=== PATIENT | female | born 1950 | race Caucasian/White ===

== ENCOUNTER 2023-11-26 13:04 | Inpatient (IN) ==
[2023-11-26 13:59] LABS: Basophils # (auto) 0.03 K/uL (0.00-0.20); Basophils % (auto) 0.4 %; Eosinophils # (auto) 0.13 K/uL (0.00-0.50); Eosinophils % (auto) 1.5 %; Hematocrit (blood only) 35.6 % (37.0-47.0); Hemoglobin 11.4 g/dl (12.0-16.0); Immature Granulocytes # (auto) 0.05 K/uL (0.01-0.20); Immature Granulocytes % (auto) 0.6 %; Lymphocytes # (auto) 1.28 K/uL (1.20-3.40); Mean Corpuscular Hemoglobin 32.4 pg (25.0-34.0); Mean Corpuscular Volume 101.1 fL (80.0-100.0); Monocytes # (auto) 0.75 K/uL (0.11-0.59); Monocytes % (auto) 8.8 %; Neutrophils # (auto) 6.31 K/uL (1.40-6.50); Neutrophils % (auto) 73.7 %; Platelet Count 181 K/uL (130-400); RDW Coefficient of Variation 14.6 % (11.5-14.5); Red Blood Count 3.52 M/uL (4.20-5.40); White Blood Count 8.55 K/ul (4.8-10.8)
[2023-11-26 14:13] LABS: Alanine Aminotransferase 15 U/L (7-52); Albumin Globulin Ratio 1.6 (0.9-2); Albumin Level 4.2 gm/dl (3.4-5.0); Alkaline Phosphatase 69 U/L (34-104); Anion Gap 5 (3-11); Aspartate Aminotransferase 18 U/L (13-39); BUN Creatinine Ratio 19.7 (10-20); Bilirubin,Total 0.5 mg/dl (0.2-1.0); Blood Urea Nitrogen 24 mg/dl (6-23); Calcium 9.6 mg/dl (8.6-10.3); Carbon Dioxide 32 mmol/L (21-32); Chloride 102 mmol/L (98-107); Est GFR (African American) 50.5 ml/min; Est GFR (Non-African American) 43.6 ml/min; Globulin 2.7 gm/dl (2.5-4.0); Glucose 143 mg/dl (70-99(Fasting)); Magnesium 1.8 mg/dl (1.7-2.4); Potassium 4.3 mmol/L (3.5-5.1); Sodium 139 mmol/L (136-145); Total Protein 6.9 gm/dl (6.0-8.3)
[2023-11-26 14:18] LABS: Troponin I High Sensitivity 13.3 pg/ml (0-14)
[2023-11-26 14:28] LABS: Thyroid Stimulating Hormone 1.914 uIu/ml (0.300-4.500)
--- NOTE | 2023-11-26 14:34 | XRay Report ---
XR chest 1V portable CLINICAL HISTORY: syncope TECHNIQUE: Single frontal radiograph of the chest was obtained. Comparison: Comparison is made to chest radiograph 01/31/2022 FINDINGS: No lines and tubes are seen. Cardiomegaly is noted. The aortic arch is calcified. The lungs are clear . No evidence of pleural effusion or pneumothorax. IMPRESSION: No acute chest disease. Cardiomegaly is noted. ACT 112: Negative or not required by law. Electronically signed by: Karl Crouch M.D. 11/26/2023 2:32 PM
[2023-11-26 14:41] LABS: Adenovirus PCR Not Detected (NotDetected); Bordetella parapertussis PCR Not Detected (NotDetected); Bordetella pertussis PCR Not Detected (NotDetected); Chlamydia pneumoniae PCR Not Detected (NotDetected); Coronavirus 229E PCR Not Detected (NotDetected); Coronavirus CoV-2 (COVID19)PCR Not Detected (NotDetected); Coronavirus HKU1 PCR Not Detected (NotDetected); Coronavirus NL63 PCR Not Detected (NotDetected); Coronavirus OC43PCR Not Detected (NotDetected); Human Metapneumovirus PCR Not Detected (NotDetected); Influenza A PCR Not Detected (NotDetected); Influenza B PCR Not Detected (NotDetected); Mycoplasma pneumoniae PCR Not Detected (NotDetected); Parainfluenza Virus 1 PCR Not Detected (NotDetected); Parainfluenza Virus 2 PCR Not Detected (NotDetected); Parainfluenza Virus 3 PCR Not Detected (NotDetected); Parainfluenza Virus 4 PCR Not Detected (NotDetected); Respiratory Syncytial VirusPCR Not Detected (NotDetected); Rhinovirus/Enterovirus PCR Not Detected (NotDetected)
[2023-11-26 14:43] LABS: Base Excess VBG 5.7 mEq/L; HCO3 VBG 34 mmol/L; Oxygen Saturation VBG < 60.0 %; PCO2 VBG 64 mmHg (38-50); PO2 VBG 23 mmHg; pH VBG 7.33 (7.36-7.41)
--- NOTE | 2023-11-26 15:13 | XRay Report ---
XR ankle LT min 3V routine HISTORY: 73 years-old Female pain acute left ankle pain COMPARISON: None TECHNIQUE: 3 views of left ankle FINDINGS: Arterial calcifications. Circumferential soft tissue swelling. Benign-appearing ill-defined area of s clerosis involves the distal tibial diaphysis. Subcentimeter corticated ossification adjacent to the medial malleolus is likely chronic. Well-defined linear longitudinal lucency of the distal fibula. No acute fracture, dislocation or osteochondral defect. IMPRESSION: 1. Soft tissue swelling without acute displaced fracture or dislocation. 2. Ill-defined linear lucency of the distal fibula likely represents normal medullary markings. A sub tle acute nondisplaced fracture could appear similarly. ACT 112: Negative or not required by law. The above report was generated using voice recognition software. It may contain grammatical, syntax o r spelling errors. Electronically signed by: Magan Coleman M.D. 11/26/2023 3:12 PM
[2023-11-26] MEDS: ALBUT/IPRATROP 3MG/0.5MG NEB 3 ML VIAL NEB STA ×3 (15:29→22:08)
--- NOTE | 2023-11-26 15:33 | Emergency Department Note ---
Impression & Plan Left ankle sprain, Syncope and collapse, Acute and chronic respiratory failure with hypercapnia ED Provider Note Provider: Elias Bradshaw MD DATE OF SERVICE: 11/26/2023 CHIEF COMPLAINT: Ankle injury, syncope, breathing issues HISTORY OF PRESENT ILLNESS: Patient is a 73-year-old female history of A-fib on Eliquis, diverticulitis, COPD on home oxygen, hypertension, hyperlipidemia, prior stroke presenting here today with significant other reporting that she passed out and injured her left ankle. Initially had a syncopal episode 3 weeks ago but her right knee recovered after that. Last evening she states that she passed out and injured her left ankle. States she felt warm across her head and then went down. Was not out more than a second or 2 and awoke on the ground immediately. Complains of pain to left lateral ankle and with significant difficulty getting around with this came here today for evaluation. Unsure if she hit her head but denies pain here. Last day or so has been having some worsening breathing. Bit of a cough. Has been trying up her home oxygen as her oxygen levels fell into the 80s. No sick contacts. No abdominal pain or nausea but does report some dysuria. PAST MEDICAL HISTORY: As noted above MEDICATIONS: Reviewed home medications includes Eliquis oxygen SOCIAL HISTORY: Lives with significant other PHYSICAL EXAM: GENERAL: alert and oriented in no acute distress on stretcher on oxygen Head: normocephalic and atraumatic EYES: No injection, discharge or icterus. EOMI. NECK: Trachea midline. ENT: Mucous membranes pink and moist. LUNGS: Airway patent. No retractions. Breath sounds few scattered wheezes. Mild tachypnea. HEART: Regular rate and rhythm. No chest wall tenderness ABDOMEN: Soft and non-tender, without guarding or rebound. SKIN: Acyanotic, warm, dry, without rashes EXTREMITIES: Without swelling, tenderness or deformity with some tenderness to the left lateral ankle but no wound. NEUROLOGICAL: No aphasia with some chronic slurred speech/dysarthria from prior CVA. Normal strength and tone in the extremities. Sensation to gross touch normal. EK bpm normal sinus rhythm right bundle branch block. No PVC or PAC. QTc 472. No ST segment elevation or depression CONTINUOUS CARDIAC MONITORING: was ordered and showed a heart rate of 50s-60s bpm in normal sinus rhythm to sinus bradycardia with bundle branch block GCS 15. Patient's laboratory studies and imaging reviewed. Differential includes Vasovagal event, dehydration, infection, hypoglycemia, electrolyte abnormalities, cardiac sources, intracerebral event, pulmonary embolism, pneumonia, COPD exacerbation, seizure, toxicologic, neurologic, traumatic injury, fracture, dislocation, compartment syndrome as well as other pathologies. IMPRESSION/MEDICAL DECISION MAKING: Patient increased to 3 L of oxygen from baseline of 2 reports a bit of cough. Syncope several weeks ago and then today. Low suspicion for PE with the use of blood thinners. Has some swelling of the left lateral ankle. X-ray obtained here question the subtle fracture. No dislocation or open wound. Will splint the left ankle. X-ray without evidence of pneumonia. Respiratory viral panel negative. No severe electrolyte abnormality or findings of acute ACS/cardiac injury. No significant anemia or leukocytosis today. VBG with slight acidosis 7.33 and a CO2 of 64. Given a DuoNeb to help with her breathing status. Question more COPD. Believe antibiotics are indicated. Does not appear encephalopathic at this point but obvious concern given her significant respiratory history and the slight acidosis/hypercarbia as well as evidence of what appears to be a questionable fracture of her ankle with syncope that we should monitor further. Will give a small dose of steroids to see if this assist with her breathing situation but patient declined any steroids. Low suspicion this is no acute CVA but more chronic residual CVA. Head CT obtained given the syncope and possible head injury with use of blood thinner. Doubt any spinal injury or rib fractures/pneumothorax. Patient was agreeable to stay for further care. DIAGNOSIS: Left ankle fracture, syncope, acute on chronic respiratory failure DISPOSITION: Hospitalist will evaluate Patient was agreeable with this plan. Past Med/Surg History Problem List (Updated 11/26/23 @ 18:39 by Jessie Luque PA-C) CKD (chronic kidney disease), stage III CAD (coronary artery disease) Paroxysmal atrial fibrillation Left ankle injury Acute on chronic respiratory failure with hypoxia and hypercapnia Acute and chronic respiratory failure with hypercapnia (Acute) Syncope and collapse (Acute) Left ankle sprain (Acute) Encounter for pre-operative examination Carotid endarterectomy (Chronic 09/16/12) Medical History (Updated 11/26/23 @ 18:39 by Jessie Luque PA-C) Peripheral vascular disease Osteoarthritis Irritable bowel syndrome Diverticulitis GERD (gastroesophageal reflux disease) Peripheral neuropathy BLE Stroke LUNAR STROKE 1994 Atrial fibrillation PAST HX/NO PROBLEMS Hypertension Hyperlipidemia On home oxygen therapy 2L NC HS ONLY Chronic obstructive pulmonary disease Surgical History History of bilateral tubal ligation History of colonoscopy History of cholecystectomy History of tooth extraction History of tonsillectomy History of adenoidectomy History of carotid endarterectomy LEFT/RT History of cardiac cath 2003/NO STENTS Family History Family/Other Family history of diabetes mellitus Brother Family history of esophageal cancer Social History Smoking Status: Former smoker Cigarettes Per Day: 10 CIG DAILY; Second Hand Exposure: No; Do You Dip or Chew Tobacco: No; Hx Alcohol Use: No Hx Substance Use: No Preferred Language: Taiwanese Communication Ability: Effective Make Ready Worker Required: No Beliefs That Will Affect Care: None Current Living Situation: Alone Feels Safe at Home: Yes Assistive Devices: Denture - Upper, Denture - Lower, Glasses and Oxygen - at Night Allergies Allergies Allergy/AdvReac Type Severity Reaction Status Date / Time bupropion Allergy Intermediate ZYBAN-HIVES Verified 11/26/23 17:45 niacin Allergy Intermediate BURNED Verified 11/26/23 17:45 THROAT amoxicillin Allergy Mild Rash Verified 11/26/23 17:45 prednisone AdvReac Intermediate ELEVATES Verified 11/26/23 17:45 BLOOD PRESSURE levofloxacin AdvReac Mild Weakness Verified 11/26/23 17:45 antihistamines Allergy BP goes up Uncoded 11/26/23 17:46 Home Meds Home Medications Medication Instructions Recorded Confirmed Systane Preservative Free 1 drp OPB DIRECTED 01/31/22 11/26/23 apixaban 5 mg tablet (Eliquis) 5 mg PO BID 01/31/22 11/26/23 aspirin 81 mg tablet,delayed 81 mg PO DAILY 01/31/22 11/26/23 release atenolol 50 mg tablet 50 mg PO BID 01/31/22 11/26/23 atorvastatin 80 mg tablet 80 mg PO PM 01/31/22 11/26/23 cholecalciferol (vitamin D3) 25 25 mcg PO DAILY 01/31/22 11/26/23 mcg (1,000 unit) tablet (Vitamin D3) coenzyme Q10 100 mg capsule 100 mg PO DAILY 01/31/22 11/26/23 (CoQ-10) cyclosporine 0.05 % eye drops in a 1 - 2 drp ophthalmic (eye) QID PRN 01/31/22 11/26/23 dropperette (Restasis) Dry Eyes empagliflozin 10 mg tablet 10 mg PO DAILY 01/31/22 11/26/23 (Jardiance) esomeprazole magnesium 40 mg 40 mg PO BID 01/31/22 11/26/23 capsule,delayed release fexofenadine 180 mg tablet 180 mg PO DAILY PRN ALLERGIES 01/31/22 11/26/23 ipratropium 20 mcg-albuterol 100 1 puff inhalation QID PRN 01/31/22 11/26/23 mcg/actuation mist for inhalation Shortness Of Breath Or Wheezing (Combivent Respimat) lisinopril 5 mg tablet 5 mg PO DAILY 01/31/22 11/26/23 multivitamin 1 tab PO DAILY 01/31/22 11/26/23 nitroglycerin 0.4 mg sublingual 0.4 mg sublingual DIRECTED PRN 01/31/22 11/26/23 tablet (Nitrostat) Chest Pain pomegranate fruit extract 250 mg 0 mg PO DAILY 01/31/22 11/26/23 capsule vitamin B complex 1 tab PO DAILY 01/31/22 11/26/23 amitriptyline 10 mg tablet 10 mg PO HS 11/26/23 11/26/23 ipratropium bromide 21 mcg (0.03 2 spray intranasal QID PRN Nasal 11/26/23 11/26/23 %) nasal spray Congestion isosorbide mononitrate 30 mg 330 mg PO QAM 11/26/23 11/26/23 tablet,extended release 24 hr pregabalin 25 mg capsule 25 mg PO BID 11/26/23 11/26/23 Results & Data (ED) Vital Signs Vital Signs - 24 hr 11/26/23 13:16 11/26/23 13:30 11/26/23 13:56 Temperature 36.5 C Temperature Source Temporal Artery Scan Pulse Rate 74 63 Pulse Rate [Apical] Respiratory Rate 20 Respiratory Effort / Characteristics Non-Labored Respiratory Depth Normal Blood Pressure 150/64 H Blood Pressure [Right Arm] Blood Pressure Mean 92 Blood Pressure Mean [Right Arm] Pulse Oximetry 96 94 Oxygen Delivery Method Nasal Cannula Nasal Cannula Oxygen Flow Rate 2 4 Sepsis Recent Fever Within 48 Hours No Sepsis New/Unexplained Change in Mental Status No Sepsis Action Taken by Nursing No Action Required 11/26/23 13:56 11/26/23 16:42 11/26/23 17:23 Temperature Temperature Source Pulse Rate 65 Pulse Rate [Apical] 61 67 Respiratory Rate 17 Respiratory Effort / Characteristics Non-Labored Spontaneous Respiratory Depth Normal Blood Pressure Blood Pressure [Right Arm] 141/41 H 141/41 H Blood Pressure Mean Blood Pressure Mean [Right Arm] 74 74 Pulse Oximetry 94 94 Oxygen Delivery Method Nasal Cannula Nasal Cannula Oxygen Flow Rate 4 4 Sepsis Recent Fever Within 48 Hours Sepsis New/Unexplained Change in Mental Status Sepsis Action Taken by Nursing Laboratory Data 11/26/23 13:35 11/26/23 13:35 Lab Results 11/26/23 11/26/23 11/26/23 Range/Units 13:35 14:33 15:57 WBC 8.55 (4.8-10.8) K/ul RBC 3.52 L (4.20-5.40) M/uL Hgb 11.4 L (12.0-16.0) g/dl Hct 35.6 L (37.0-47.0) % MCV 101.1 H (80.0-100.0) fL MCH 32.4 (25.0-34.0) pg MCHC 32.0 (32.0-36.0) g/dL RDW Std Deviation 54.0 H (36.4-46.3) fL RDW Coeff of Shonda 14.6 H (11.5-14.5) % Plt Count 181 (130-400) K/uL MPV 10.0 (9.4-12.4) fL Immature Gran % (Auto) 0.6 % Neut % (Auto) 73.7 % Lymph % (Auto) 15.0 % Baker % (Auto) 8.8 % Eos % (Auto) 1.5 % Baso % (Auto) 0.4 % Neut # (Auto) 6.31 (1.40-6.50) K/uL Lymph # (Auto) 1.28 (1.20-3.40) K/uL Baker # (Auto) 0.75 H (0.11-0.59) K/uL Eos # (Auto) 0.13 (0.00-0.50) K/uL Baso # (Auto) 0.03 (0.00-0.20) K/uL Immature Gran # (Auto) 0.05 (0.01-0.20) K/uL VBG pH 7.33 L (7.36-7.41) VBG pCO2 64 H (38-50) mmHg VBG pO2 23 mmHg VBG HCO3 34 mmol/L VBG O2 Saturation < 60.0 % VBG Base Excess 5.7 mEq/L Sodium 139 (136-145) mmol/L Potassium 4.3 (3.5-5.1) mmol/L Chloride 102 (98-107) mmol/L Carbon Dioxide 32 (21-32) mmol/L Anion Gap 5 (3-11) BUN 24 H (6-23) mg/dl Creatinine 1.22 H (0.6-1.2) mg/dl Est Cr Clr Drug Dosing Not Reportable Est GFR ( Amer) 50.5 ml/min Est GFR (Non-Af Amer) 43.6 ml/min BUN/Creatinine Ratio 19.7 (10-20) Glucose 143 H (70-99(Fasting)) mg/dl Calcium 9.6 (8.6-10.3) mg/dl Magnesium 1.8 (1.7-2.4) mg/dl Total Bilirubin 0.5 (0.2-1.0) mg/dl AST 18 (13-39) U/L ALT 15 (7-52) U/L Alkaline Phosphatase 69 (34-104) U/L Troponin I High Sens 13.3 (0-14) pg/ml Total Protein 6.9 (6.0-8.3) gm/dl Albumin 4.2 (3.4-5.0) gm/dl Globulin 2.7 (2.5-4.0) gm/dl Albumin/Globulin Ratio 1.6 (0.9-2) TSH 1.914 (0.300-4.500) uIu/ml Urine Color Yellow Urine Appearance Clear (Clear) Urine pH 6.0 (4.5-7.5) Ur Specific [place] 1.013 (1.000-1.030) Urine Protein 1+ H (Negative) Urine Glucose (UA) 2+ H (Negative) Urine Ketones Negative (Negative) Urine Blood Negative (Negative) Urine Nitrite Negative (Negative) Urine Bilirubin Negative (Negative) Urine Urobilinogen Negative (Negative) Ur Leukocyte Esterase Negative (Negative) Urine WBC (Auto) 0-5 (0-5) /hpf Urine RBC (Auto) 0-2 (0-2) /hpf U Hyaline Cast (Auto) 0-2 (0-2) /lpf U Epithel Cells (Auto) 3-5 H (0-2) /hpf Urine Bacteria (Auto) 1+ H (None Seen) Adenovirus (PCR) Not Detected (NotDetected) B. pertussis DNA (PCR) Not Detected (NotDetected) B.parapertussis DNA PCR Not Detected (NotDetected) C. pneumoniae DNA (PCR) Not Detected (NotDetected) Coronavirus OC43 (PCR) Not Detected (NotDetected) Coronavirus HKU1 (PCR) Not Detected (NotDetected) Coronavirus 229E (PCR) Not Detected (NotDetected) SARS-CoV-2 (PCR) Not Detected (NotDetected) Coronavirus NL63 (PCR) Not Detected (NotDetected) Human Metapneumovir PCR Not Detected (NotDetected) Influenza Type A (PCR) Not Detected (NotDetected) Influenza Type B (PCR) Not Detected (NotDetected) M. pneumoniae (PCR) Not Detected (NotDetected) Parainfluenza 1 (PCR) Not Detected (NotDetected) Parainfluenza 2 (PCR) Not Detected (NotDetected) Parainfluenza 3 (PCR) Not Detected (NotDetected) Parainfluenza 4 (PCR) Not Detected (NotDetected) RSV (PCR) Not Detected (NotDetected) Entero/Rhino (PCR) Not Detected (NotDetected) Administered Medications Discontinued Medications Albuterol (Albut/Ipratrop 3mg/0.5mg Neb 3 Ml Vial) 3 ml NEB NOW STA; Protocol Stop: 11/26/23 15:23 Last Admin: 11/26/23 15:29 Dose: 3 ml Documented By: MES Methylprednisolone (Methylprednisolone 125 Mg/2 Ml Vial) 40 mg IV NOW STA Stop: 11/26/23 15:34 Last Admin: 11/26/23 15:43 Dose: Not Given Documented By: [facility] [place] Imaging Data Radiologist's Impression: Ankle X-Ray 11/26/23 13:38 XR ankle LT min 3V routine HISTORY: 73 years-old Female pain acute left ankle pain COMPARISON: None TECHNIQUE: 3 views of left ankle FINDINGS: Arterial calcifications. Circumferential soft tissue swelling. Benign-appearing ill-defined area of sclerosis involves the distal tibial diaphysis. Subcentimeter corticated ossification adjacent to the medial malleolus is likely chronic. Well-defined linear longitudinal lucency of the distal fibula. No acute fracture, dislocation or osteochondral defect. IMPRESSION: 1. Soft tissue swelling without acute displaced fracture or dislocation. 2. Ill-defined linear lucency of the distal fibula likely represents normal medullary markings. A subtle acute nondisplaced fracture could appear similarly. ACT 112: Negative or not required by law. The above report was generated using voice recognition software. It may contain grammatical, syntax or spelling errors. Electronically signed by: Magan Coleman M.D. 11/26/2023 3:12 PM Chest X-Ray 11/26/23 13:38 XR chest 1V portable CLINICAL HISTORY: syncope TECHNIQUE: Single frontal radiograph of the chest was obtained. Comparison: Comparison is made to chest radiograph 01/31/2022 FINDINGS: No lines and tubes are seen. Cardiomegaly is noted. The aortic arch is calcified. The lungs are clear. No evidence of pleural effusion or pneumothorax. IMPRESSION: No acute chest disease. Cardiomegaly is noted. ACT 112: Negative or not required by law. Electronically signed by: Karl Crouch M.D. 11/26/2023 2:[address] 11/26/23 14:[address] DOSE: 953.61 mGy.cm HISTORY: fall, syncope TECHNIQUE: Multiaxial CT images of the head were performed without the use of intravenous contrast. Automated exposure control was utilized for this study. A dose lowering technique was utilized adhering to the principles of ALARA. Comparison: None. Findings: The paranasal sinuses and mastoid air cells are clear. The calvarium and skull base are intact. There is no mass, hematoma, midline shift, acute infarct. White matter hypodensity is nonspecific but suggestive of microvascular ischemic change. The ventricles and sulci demonstrate mild age-related involutional changes. Focal area of encephalomalacia within the left posterior frontal lobe consistent with an old MCA territory infarct. Impression: 1. No acute infarct or intracranial hemorrhage. 2. Old left MCA territory infarct. ACT 112: Negative or not required by law. Electronically signed by: Jose Resendiz M.D. 11/26/2023 3:43 PM Discharge Plan Visit Data Chief Complaint: Ankle Pain Stated Complaint: SYNCOPE, LEFT ANKLE INJURY, TROUBLE BREATHING ED Provider: Elias Bradshaw Discharge Problem: Left ankle sprain, Syncope and collapse, Acute and chronic respiratory failure with hypercapnia Patient Disposition: Being Evaluated by Hospitalist Forms Stand Alone Forms: My [facility] [place] [facility] Prescriptions Prescriptions: No Action atorvastatin 80 mg tablet 80 mg PO PM esomeprazole magnesium 40 mg capsule,delayed release(DR/EC) 40 mg PO BID Rx Instructions: Take before am & pm meals lisinopril 5 mg tablet 5 mg PO DAILY atenolol 50 mg tablet 50 mg PO BID Eliquis 5 mg tablet 5 mg PO BID Jardiance 10 mg tablet 10 mg PO DAILY Systane Preservative Free 1 drp OPB DIRECTED fexofenadine [Khloe] 180 mg Tablet 180 mg PO DAILY PRN (Reason: ALLERGIES) cyclosporine [Restasis] 0.05 % Dropperette 1 - 2 drp OPHTHALMIC (EYE) QID PRN (Reason: Dry Eyes) Combivent Respimat 20-100 mcg/actuation Mist 1 puff INHALATION QID PRN (Reason: Shortness Of Breath Or Wheezing) multivitamin Tablet 1 tab PO DAILY aspirin [Aspir-Low] 81 mg Tablet,Delayed Release (Dr/Ec) 81 mg PO DAILY nitroglycerin [Nitrostat] 0.4 mg Tablet, Sublingual 0.4 mg sublingual DIRECTED PRN (Reason: Chest Pain) vitamin B complex Tablet 1 tab PO DAILY coenzyme Q10 [CoQ-10] 100 mg Capsule 100 mg PO DAILY cholecalciferol (vitamin D3) [Vitamin D3] 25 mcg (1,000 unit) Tablet 25 mcg PO DAILY pomegranate fruit extract 250 mg Capsule 0 mg PO DAILY isosorbide mononitrate 30 mg tablet extended release 24 hr 330 mg PO QAM amitriptyline 10 mg tablet 10 mg PO HS ipratropium bromide 21 mcg (0.03 %) spray,non-aerosol 2 spray INTRANASAL QID PRN (Reason: Nasal Congestion) pregabalin 25 mg capsule 25 mg PO BID Referrals Referrals: Daysi Pham MD [Primary Care Provider] - Discharge Problem: Left ankle sprain Qualifiers: Encounter type: initial encounter
[2023-11-26] MEDS: methylPREDNISolone 125 MG/2 ML VIAL IV STA (15:43)
--- NOTE | 2023-11-26 15:44 | CT Scan Report ---
HEAD CT NONCONTRAST CT DOSE: 953.61 mGy.cm HISTORY: fall, syncope TECHNIQUE: Multiaxial CT images of the head were performed without the use of intravenous contrast. A utomated exposure control was utilized for this study. A dose lowering technique was utilized adheri ng to the principles of ALARA. Comparison: None. Findings: The paranasal sinuses and mastoid air cells are clear. The calvarium and skull base are int act. There is no mass, hematoma, midline shift, acute infarct. White matter hypodensity is nonspecifi c but suggestive of microvascular ischemic change. The ventricles and sulci demonstrate mild age-rela demetrius involutional changes. Focal area of encephalomalacia within the left posterior frontal lobe consi stent with an old MCA territory infarct. Impression: 1. No acute infarct or intracranial hemorrhage. 2. Old left MCA territory infarct. ACT 112: Negative or not required by law. Electronically signed by: Jose Resendiz M.D. 11/26/2023 3:43 PM
[2023-11-26 16:14] LABS: Appearance Urine Clear (Clear); Bacteria Urine Automated 1+ (None Seen); Bilirubin Urine Negative (Negative); Blood Urine Negative (Negative); Cast Urine Automated 0-2 /lpf (0-2); Color Urine Yellow; Glucose Urine UA 2+ (Negative); Ketones Urine Negative (Negative); Leukocyte Esterase Urine Negative (Negative); Nitrite Urine Negative (Negative); Protein Urine 1+ (Negative); RBC Urine Automated 0-2 /hpf (0-2); Specific Gravity Urine 1.013 (1.000-1.030); Urobilinogen Urine Negative (Negative); WBC Urine Automated 0-5 /hpf (0-5)
--- NOTE | 2023-11-26 17:09 | History & Physical Report ---
Date of Service November 26, 2023 Assessment & Plan (1) Syncope and collapse: Plan: Patient is 73 year old female with PMH paroxysmal atrial fibrillation anticoagulated on Eliquis, chronic hypoxic respiratory failure on 2L oxygen, COPD, DM II, CVA, CAD, history ischemic cardiomyopathy with EF 55% on 2021 echo, HTN, dyslipidemia, carotid artery disease s/p bilateral CEA's with bilateral recurrence, PVD, subclavian stenosis, SMA stenosis, CKD III, and others listed below presented to ER with c/o recurrent syncope with syncope today resulting in left ankle injury CT Head: No acute infarct or intracranial hemorrhage. Old left MCA territory infarct. Known significant vascular disease Monitor on telemetry for arrhythmias Echo Carotid Doppler Orthostatic vital signs Admit on tele Cards consult Will hold isosorbide and lisinopril and monitor BP CBC, BMP in am (2) Left ankle injury: Plan: Left ankle x-ray: Soft tissue swelling without acute displaced fracture or dislocation. Ill-defined linear lucency of the distal fibula likely represents normal medullary markings. A subtle acute nondisplaced fracture could appear similarly. Splint applied in ER Elevate leg Will make non weight bearing left foot until evaluated by ortho Ortho consult Tylenol prn pain. Patient does not want other pain medication at this time Will need PT/OT eval (3) Acute on chronic respiratory failure with hypoxia and hypercapnia: Plan: COPD Chronic 2L oxygen use Reported noted desaturations in ER on chronic 2L with attempted ambulation Denies fever/chills, increased cough or SOB. CXR without infiltrate or volume overload. negative respiratory biofire panel Do not suspect COPD exacerbation. Low suspicion for PE as is anticoagulated on Eliquis Continue oxygen use with goal O2 sat 89-92% Duonebs as needed Monitor (4) Peripheral vascular disease: Plan: PVD, carotid stenosis s/p bilateral CEA with recurrence, subclavian stenosis, SMA stenosis Continue aspirin, atorvastatin [place] [facility] [place] recommended reserving surgical intervention for severe symptomatology or limb salvage. May need further vascular follow up pending above work up (5) Stroke: Plan: With residual aphasia Continue aspirin, atorvastatin (6) Paroxysmal atrial fibrillation: Plan: Reported history PAF during hospitalization at [facility] Anticoagulated on Eliquis Current sinus rhythm Continue Eliquis, atenolol (7) CAD (coronary artery disease): Plan: Denies CP, SOB 03/24/2022 Echo: EF: 55%, grade II diastolic dysfunction, moderate aortic valve sclerosis, moderate mitral annular calcification Update echo Continue aspirin, atorvastatin Will hold isosorbide and lisinopril and monitor (8) CKD (chronic kidney disease), stage III: Plan: Cr: 1.2. Baseline 1.2 Monitor renal functions DVT Prophylaxis Eliquis Full Code as per discussion with patient Follows with Dr Pham for routine care Pt was seen and care coordinated with Dr Montenegro. See addendum I spent a total of 80 minutes reviewing notes, outpatient records, labs, medication, coordinating, documenting and providing care for this patient excluding time spent in the performance of separately billed services. History of Present Illness Chief Complaint: Syncope, ankle pain Primary Care Provider: Daysi Pham MD Patient is 73 year old female with PMH paroxysmal atrial fibrillation anti coagulated on Eliquis, chronic hypoxic respiratory failure on 2L oxygen, COPD, DM II, CVA, CAD, history ischemic cardiomyopathy with EF 55% on 2021 echo, HTN, dyslipidemia, carotid artery disease s/p bilateral CEA's with bilateral recurrence, PVD, subclavian stenosis, SMA stenosis, CKD III, and others listed below presented to ER with c/o syncope. History obtained from patient, family and outpatient chart review. Reports since stroke has chronic aphasia and dysphagia. Reports chronic right sided paresthesias. Reports some chronic weakness but does not use assistive devices for ambulation. Patient states a couple of weeks ago got a hot feeling her her face and head and then woke up on the floor. Today was cooking at the stove and she said she had funny feeling and face felt hot and tried to hag on to the countertop and next thing she knew was on the floor. Family states she was passed out for a few seconds. Denies CP, SOB, dizziness prior to these episodes. Sleeps inclined at baseline and hasn't noticed more orthopnea. States past week feeling more wheezy but states "it doesn't feel like its in my chest". Denies increased cough. States has nebulizer but is out of medication. Since she has been having syncope she self increased her oxygen to 3L but hasn't noticed any difference. States when in bright light/sunlight has blurry vision. She notices this has been progressive. Has chr onic loose stool. States eats regular diet but sometimes dose have choking since her stroke. Denies fever/chills, diaphoresis, N/V/D/C, OLIVER, dizziness, diplopia, vision loss, neck pain, CP, palpitations, sore throat, otalgia, rhinorrhea, abdominal pain, extremity edema, rashes, urinary symptoms. Outpatient chart reviewed 11/18/22 Carotid duplex Impression: Diffuse supra-aortic trunk disease as noted on prior imaging studies including a CTA from 05/05/2019. Right carotid artery duplex examination indicates evidence of 70-99% stenosis of the internal carotid artery. Degree of stenosis may be greater than reported due to heavily calcified plaque. Left carotid artery duplex examination indicates evidence of less than 50% stenosis of the internal carotid artery. Waveform of the internal carotid artery suggests proximal common carotid artery stenosis. Left external carotid artery is not identified. Retrograde flow noted in the left vertebral artery which may represent a proximal stenosis or occlusion. Possible greater than 70% stenosis of the right subclavian. 03/24/2022 Echo: EF: 55%, grade II diastolic dysfunction, moderate aortic valve sclerosis, moderate mitral annular calcification 11/18/22 vascular surgery [place], [place] [facility] [place] discusses reserving surgical intervention for carotid disease for symptomatology and PAD reserve intervention for limb salvage Allergies Allergy/AdvReac Type Severity Reaction Status Date / Time bupropion Allergy Intermediate ZYBAN-HIVES Verified 11/26/23 17:45 niacin Allergy Intermediate BURNED Verified 11/26/23 17:45 THROAT amoxicillin Allergy Mild Rash Verified 11/26/23 17:45 prednisone AdvReac Intermediate ELEVATES Verified 11/26/23 17:45 BLOOD PRESSURE levofloxacin AdvReac Mild Weakness Verified 11/26/23 17:45 antihistamines Allergy BP goes up Uncoded 11/26/23 17:46 Home Medications Medication Instructions Recorded Confirmed Type Systane Preservative Free 1 drp OPB DIRECTED 01/31/22 11/26/23 History apixaban 5 mg tablet (Eliquis) 5 mg PO BID 01/31/22 11/26/23 History aspirin 81 mg tablet,delayed 81 mg PO DAILY 01/31/22 11/26/23 History release atenolol 50 mg tablet 50 mg PO BID 01/31/22 11/26/23 History atorvastatin 80 mg tablet 80 mg PO PM 01/31/22 11/26/23 History cholecalciferol (vitamin D3) 25 25 mcg PO DAILY 01/31/22 11/26/23 History mcg (1,000 unit) tablet (Vitamin D3) coenzyme Q10 100 mg capsule 100 mg PO DAILY 01/31/22 11/26/23 History (CoQ-10) cyclosporine 0.05 % eye drops in a 1 - 2 drp ophthalmic (eye) QID PRN 01/31/22 11/26/23 History dropperette (Restasis) Dry Eyes empagliflozin 10 mg tablet 10 mg PO DAILY 01/31/22 11/26/23 History (Jardiance) esomeprazole magnesium 40 mg 40 mg PO BID 01/31/22 11/26/23 History capsule,delayed release fexofenadine 180 mg tablet 180 mg PO DAILY PRN ALLERGIES 01/31/22 11/26/23 History ipratropium 20 mcg-albuterol 100 1 puff inhalation QID PRN 01/31/22 11/26/23 History mcg/actuation mist for inhalation Shortness Of Breath Or Wheezing (Combivent Respimat) lisinopril 5 mg tablet 5 mg PO DAILY 01/31/22 11/26/23 History multivitamin 1 tab PO DAILY 01/31/22 11/26/23 History nitroglycerin 0.4 mg sublingual 0.4 mg sublingual DIRECTED PRN 01/31/22 11/26/23 History tablet (Nitrostat) Chest Pain pomegranate fruit extract 250 mg 0 mg PO DAILY 01/31/22 11/26/23 History capsule vitamin B complex 1 tab PO DAILY 01/31/22 11/26/23 History amitriptyline 10 mg tablet 10 mg PO HS 11/26/23 11/26/23 History ipratropium bromide 21 mcg (0.03 2 spray intranasal QID PRN Nasal 11/26/23 11/26/23 History %) nasal spray Congestion isosorbide mononitrate 30 mg 330 mg PO QAM 11/26/23 11/26/23 History tablet,extended release 24 hr pregabalin 25 mg capsule 25 mg PO BID 11/26/23 11/26/23 History Past Med/Surg History Problem List (Updated 11/26/23 @ 18:39 by Jessie Luque PA-C) CKD (chronic kidney disease), stage III CAD (coronary artery disease) Paroxysmal atrial fibrillation Left ankle injury Acute on chronic respiratory failure with hypoxia and hypercapnia Acute and chronic respiratory failure with hypercapnia (Acute) Syncope and collapse (Acute) Left ankle sprain (Acute) Encounter for pre-operative examination Carotid endarterectomy (Chronic 09/16/12) Medical History (Updated 11/26/23 @ 18:39 by Jessie Luque PA-C) Peripheral vascular disease Osteoarthritis Irritable bowel syndrome Diverticulitis GERD (gastroesophageal reflux disease) Peripheral neuropathy BLE Stroke LUNAR STROKE 1994 Atrial fibrillation PAST HX/NO PROBLEMS Hypertension Hyperlipidemia On home oxygen therapy 2L NC HS ONLY Chronic obstructive pulmonary disease Surgical History History of bilateral tubal ligation History of colonoscopy History of cholecystectomy History of tooth extraction History of tonsillectomy History of adenoidectomy History of carotid endarterectomy LEFT/RT History of cardiac cath 2003/NO STENTS Family History Family/Other Family history of diabetes mellitus Brother Family history of esophageal cancer Social History Smoking Status: Former smoker Cigarettes Per Day: 10 CIG DAILY; Second Hand Exposure: No; Do You Dip or Chew Tobacco: No; Hx Alcohol Use: No Hx Substance Use: No Preferred Language: Georgian Communication Ability: Effective Pipe Joints Supervisor Required: No Beliefs That Will Affect Care: None Current Living Situation: Alone Feels Safe at Home: Yes Assistive Devices: Denture - Upper, Denture - Lower, Glasses and Oxygen - at Night Review of Systems Review of Systems: All systems reviewed & are unremarkable except as noted in HPI & below Physical Exam Physical Exam: PE per Dr Montenegro Results & Data Results & Data Vital Signs (Past 12 Hours) Vital Signs Temp Pulse Pulse Resp BP BP Pulse Ox 11/26/23 16:42 67 141/41 H 94 11/26/23 13:56 61 17 141/41 H 94 11/26/23 13:56 94 11/26/23 13:30 63 11/26/23 13:16 36.5 C 74 20 150/64 H 96 O2 Del Method O2 Flow Rate 11/26/23 16:42 Nasal Cannula 4 11/26/23 13:56 Nasal Cannula 4 11/26/23 13:56 Nasal Cannula 4 11/26/23 13:30 11/26/23 13:16 Nasal Cannula 2 Laboratory Results Short CBC 11/26/23 Range/Units 13:35 WBC 8.55 (4.8-10.8) K/ul Hgb 11.4 L (12.0-16.0) g/dl Hct 35.6 L (37.0-47.0) % Plt Count 181 (130-400) K/uL BMP 11/26/23 13:35 Sodium 139 Potassium 4.3 Chloride 102 Carbon Dioxide 32 BUN 24 H Creatinine 1.22 H Glucose 143 H Calcium 9.6 Liver Function 11/26/23 Range/Units 13:35 Total Bilirubin 0.5 (0.2-1.0) mg/dl AST 18 (13-39) U/L ALT 15 (7-52) U/L Alkaline Phosphatase 69 (34-104) U/L Albumin 4.2 (3.4-5.0) gm/dl Urine 11/26/23 Range/Units 15:57 Urine Color Yellow Urine Appearance Clear (Clear) Urine pH 6.0 (4.5-7.5) Ur Specific [place] 1.013 (1.000-1.030) Urine Protein 1+ H (Negative) Urine Glucose (UA) 2+ H (Negative) Diagnostic Findings Ankle X-Ray 11/26/23 13:38 XR ankle LT min 3V routine HISTORY: 73 years-old Female pain acute left ankle pain COMPARISON: None TECHNIQUE: 3 views of left ankle FINDINGS: Arterial calcifications. Circumferential soft tissue swelling. Benign-appearing ill-defined area of sclerosis involves the distal tibial diaphysis. Subcentimeter corticated ossification adjacent to the medial malleolus is likely chronic. Well-defined linear longitudinal lucency of the distal fibula. No acute fracture, dislocation or osteochondral defect. IMPRESSION: 1. Soft tissue swelling without acute displaced fracture or dislocation. 2. Ill-defined linear lucency of the distal fibula likely represents normal medullary markings. A subtle acute nondisplaced fracture could appear similarly. ACT 112: Negative or not required by law. The above report was generated using voice recognition software. It may contain grammatical, syntax or spelling errors. Electronically signed by: Magan Coleman M.D. 11/26/2023 3:12 PM Chest X-Ray 11/26/23 13:38 XR chest 1V portable CLINICAL HISTORY: syncope TECHNIQUE: Single frontal radiograph of the chest was obtained. Comparison: Comparison is made to chest radiograph 01/31/2022 FINDINGS: No lines and tubes are seen. Cardiomegaly is noted. The aortic arch is calcified. The lungs are clear. No evidence of pleural effusion or pneumothorax. IMPRESSION: No acute chest disease. Cardiomegaly is noted. ACT 112: Negative or not required by law. Electronically signed by: Karl Crouch M.D. 11/26/2023 2:[address] 11/26/23 14:[address] DOSE: 953.61 mGy.cm HISTORY: fall, syncope TECHNIQUE: Multiaxial CT images of the head were performed without the use of intravenous contrast. Automated exposure control was utilized for this study. A dose lowering technique was utilized adhering to the principles of ALARA. Comparison: None. Findings: The paranasal sinuses and mastoid air cells are clear. The calvarium and skull base are intact. There is no mass, hematoma, midline shift, acute infarct. White matter hypodensity is nonspecific but suggestive of microvascular ischemic change. The ventricles and sulci demonstrate mild age-related involutional changes. Focal area of encephalomalacia within the left posterior frontal lobe consistent with an old MCA territory infarct. Impression: 1. No acute infarct or intracranial hemorrhage. 2. Old left MCA territory infarct. ACT 112: Negative or not required by law. Electronically signed by: Jose Resendiz M.D. 11/26/2023 3:43 PM ECG Additional Comments: sinus rhythm, RBBB per my interpretation Supervising Physician Co-Signing Physician Notes I have seen and discussed the case with the collaborating advanced practitioner. I agree with the above H&P. I have reviewed and confirmed the patients medical history, the findings on physical examination, and the patients diagnosis and treatment plan with Ene PALUMBO and agree with the information documented. Ms. Yee is a 73 year old woman with complex medical history notable for severe vascular disease admitted for syncope eval. Despite prior stroke complicated by dysarthria, dysphagia she is able to walk and function independently; however, she reports episodes of syncopal collapse where she feels initially warm, then doesn't recall falling to the ground. She denies any post-event confusion. It was a syncopal episode while she was cooking that prompted the rolling of her left ankle and presentation to the ED. GENERAL APPEARANCE: AxOx4, pleasant female HEENT: NC, AT. MMM. EOMI, clear conjunctiva, oropharynx clear. NECK: Supple without lymphadenopathy. No stiffness or restricted ROM. HEART: r bruit + slight VINCENZO. RRR LUNGS: CTAB, moving air well.scattered wheezing ABDOMEN: Soft, nontender, nondistended with good bowel sounds heard. BACK: No CVAT, no obvious deformity. EXTREMITIES: Without cyanosis, clubbing or edema. NEUROLOGICAL: Alert and oriented, moving all 4 extremities. notable dysphagia, chronic right sided sensory deficit on face with slight facial droop Skin: Warm and dry without any rash. #Syncope #ASCVD with a chronic total RCA occlusion, 30% LCX stenosis #Carotid stenosis R>L #Diffuse vascular disease multiple comorbidities that could contribute, significant vascular hx including restenosis of R carotid Repeat Carotid dopplers ECHO ordered Orthostatics Admit on tele Cards consult continue ASA #Hypertension #Wide Pulse Pressure #PAF Hold Lisinopril and Imdur Continue Atenolol iso a fib Continue eliquis Will allow more permissive hypertension in 160-170s given significant vasculopathy Cards consult #Left ankle pain c/f strain with ?fracture on imaging Ortho consult PT/OT NWB until eval #Chronic hypoxic resp failure resume home inhalers nebs and wean as able rest of plan as above I spent a total of 35 minutes coordinating, documenting, and providing care for this patient excluding time spent in the performance of separately billed services. All of the aforementioned completed outside of collaborating with the assigned advanced practitioner for a full treatment plan. I have reviewed the advanced practitioner's documentation, and I agree with, and take responsibility for the plan of care
--- OUTSIDE RECORDS SUMMARY | 2023-11-26 18:46 | External Medical Summary | Summary of Care ---
Author Name Unknown Organization [facility] Address [address] [place] [address] Phone [phone] Care Team Providers Care Grocery Clerk Name Role Phone Daysi Pham MD Primary Care Provide r Encounter Details Date Type Department Care Team (Late st Contact Info) Description 11/23/2023 Population Health External Data Unspecified Department Allergies Active Allergy Reactions Criticality Noted Date Comments Amoxicillin Rash 11/19/2011 Levofloxacin Other (Please comment) 11/13/2013 Weakness, lightheadedness, nausea Niacin Er 01/30/2010 Burned throat. Prednisone 09/03/2012 Blood pressure went up. Bupropion Hcl 01/30/2010 documented as of this encounter (statuses as of 11/26/2023) Medications Medication Sig Dispensed Refills Start Date End Date Status VITAMIN B COMPLEX PO CAPSIndications:supp lementation Take by mouth 1 Capsule daily . Active CO Q 10 100 MG PO CAPSIndications:leg pain Take by mouth 100 mg daily . Active ASPIRIN 81 MG PO TABSIndications:hear t health Take 1 Tablet by mouth in the morning. Active oxygen GAS Use 2 L/min(Oxygen) as directed at bedtime. Active Respiratory Therapy Supplies (NEBULIZER) DEVIIndications:COPD , moderate (HCC) Use as directed. Duonebs, 3 ml's every 6 hours as needed 1 Device 05/21/2016 Active Multiple Vitamins-Minerals (MULTIVITAMIN WOMEN) TABSIndications:gene ral health Take by mouth 1 Tablet daily . Active nitroglycerin (NITROSTAT) 0.4 MG SUBLIndications:Retort Kiln Burner lev coronary artery disease Place 1 Tab under the tongue as needed for Pain, Chest. May repeat 3 times. If chest pain continues, call 911. 25 Tab 1 01/31/2019 Active Wheat Dextrin (BENEFIBER) powderIndications:FuelFilm Take by mouth . 1 teaspoon daily in beverage Active Pomegranate 250 MG CAPSIndications:for circulation Take by mouth . Taking 400 mg daily Active fexofenadine (ARGELIA) 180 MG TabletIndications:No n-seasonal allergic rhinitis, unspecified trigger Take 1 Tab by mouth daily. For allergies. 90 Tab 3 06/16/2019 Active Additional Information Patient taking differently:180 mg OralDAILY PRN, Allergies, (No instructions reported), Indications: allergies, Reported on 08/21/2022 Prolifiq SoftwareTouch Verio w/Device KitIndications:Type 2 diabetes mellitus with hemoglobin A1c goal of less than 8.0% ([facility]) Use once a day Dx: E11.9 1 Kit 08/08/2020 Active Fluocinolone Acetonide 0.01 % Otic OilIndications:for ear Administer into ears once a week . On Saturdays Active Systane Preservative Free 0.4-0.3 % Ophthalmic Solution (Polyethyl Glyc-Propyl Glyc PF)Indications:dry eyes Instill into eye 1 Drop daily as needed for Other. Active Vitamin D 125 MCG (5000 UT) Oral Capsule Take by mouth. Active Isosorbide Mononitrate ER 30 MG Oral Tablet Extended Release 24 Hour (Imdur)Indications:H TN, goal below 140/90 TAKE ONE TABLET BY MOUTH EVERY MORNING 90 Tablet 3 02/26/2023 4 Active Ipratropium [place] 0.03 % Nasal Solution (Atrovent)Indication s:Rhinorrhea ADMINISTER 2 SPRAYS INTO EACH NOSTRIL 4 TIMES A DAY NEEDED FOR RHINITIS. FOR RUNNY NOSE 90 mL 1 03/15/2023 Active Ipratropium-Albutero l 20-100 MCG/ACT Inhalation Aerosol Solution (Combivent Respimat)Indications :COPD, group B, by GOLD 2017 classification ([facility]) INHALE 1 PUFF BY MOUTH IN THE MORNING, 1 PUFF AT NOON, 1 PUFF IN THE EVENING, AND 1 PUFF BEFORE BEDTIME 12 g 1 04/16/2023 4 Active Apixaban 5 MG Oral Tablet (Eliquis)Indications :Cerebrovascular disease, arteriosclerotic, post-stroke,Paroxysm al atrial fibrillation (HCC) TAKE ONE TABLET BY MOUTH TWICE A DAY 200 Tablet 1 06/14/2023 Active Esomeprazole Magnesium 40 MG Oral Capsule Delayed ReleaseIndications:G astroesophageal reflux disease without esophagitis Take 1 Capsule by mouth 2 times a day with morning and evening meals. 200 Capsule 1 06/14/2023 Active Atenolol 50 MG Oral Tablet (Tenormin)Indication s:Chronic coronary artery disease TAKE ONE TABLET BY MOUTH TWICE A DAY 200 Tablet 3 06/28/2023 Active OneTouch Verio In Vitro Strip (Glucose Blood)Indications:Ty pe 2 diabetes mellitus with hemoglobin A1c goal of less than 8.0% (HCC) USE TO TEST BLOOD SUGAR ONCE A DAY 100 Strip 3 08/09/2023 Active Lisinopril 5 MG Oral Tablet (Prinivil)Indication s:HTN, goal below 140/90 TAKE ONE TABLET BY MOUTH EVERY DAY 90 Tablet 3 08/12/2023 5 Active Pregabalin 25 MG Oral Capsule (Lyrica)Indications: Type 2 diabetes, controlled, with neuropathy (HCC) TAKE ONE CAPSULE BY MOUTH EVERY MORNING AND TAKE ONE CAPSULE BEFORE BEDTIME 60 Capsule 2 09/30/2023 Active Atorvastatin Calcium 80 MG Oral Tablet (Lipitor)Indications :Dyslipidemia, goal LDL below 100 TAKE ONE TABLET BY MOUTH EVERYday 100 Tablet 3 10/18/2023 5 Active OneTouch Delica Plus [id number] :Type 2 diabetes mellitus with hemoglobin A1c goal of less than 8.0% (HCC) USE TO TEST BLOOD SUGAR ONCE A DAY DIRECTED 100 Each 1 10/30/2023 5 Active Amitriptyline HCl 10 MG Oral Tablet (Elavil)Indications: Insomnia, unspecified type Take 1 Tablet by mouth at bedtime. 100 Tablet 1 11/01/2023 Active Empagliflozin 10 MG Oral Tablet (Jardiance)Indicatio ns:Type 2 diabetes mellitus with hemoglobin A1c goal of less than 8.0% (HCC) Take 1 Tablet by mouth in the morning. 90 Tablet 3 11/02/2023 Active documented as of this encounter (statuses as of 11/26/2023) Active Problems Problem Noted Date Diagnosed Date Mesenteric artery stenosis 11/18/2022 Anxiety state 08/21/2022 Type 2 diabetes, controlled, with neuropathy 05/2021 Type 2 diabetes mellitus wit h hemoglobin A1c goal of less than 8.0% 07/17/2020 Gastroesophageal reflux disease without esophagi tis 06/16/2019 COPD, group B, by GOLD 2017 classification 03/13 Overview: Per COPD GOLD Classification Aphasia as late effect of stroke 01/10/2019 Paroxysmal atrial fibrillation 01/10/2019 Secondary polycythemia 09/05/2018 Erythrocytosis 08/24/2018 Psoriasis 05/08/2016 Postmenopausal atrophic vaginitis 02/28/2016 Chronic pain of both ankles 02/28/2016 Subclavian artery stenosis, left 12/18/2014 Persistent insomnia 11/01/2014 Atherosclerotic peripheral v ascular disease with intermittent claudication 11/07/2012 Bilateral carotid artery stenosis 12/04/2011 HTN, goal below 140/90 08/05/2010 Overview: Take all BP's in right arm, per Vascular study Dyslipidemia, goal LDL below 100 08/05/2010 Osteoarthrosis 11/13/2008 CEREBROVASCULAR DZ, POST-STROKE 08/14/2008 Overview: Modified per CVA protocol #8 ADVANCE DIRECTIVE INFORMATION 03/09/2005 Overview: No, Advance Directive brochure given to patient at prior appointment. LACUNAR STROKE > PERIPH FIELD DEFECT 06/13/2001 Chronic coronary artery disease Overview: Chronic total RCA Diverticulosis of colon Lung nodule Fatty liver IBS (irritable bowel syndrome) documented as of this encounter (statuses as of 11/26/2023) Resolved Problems Problem Noted Date Diagnosed Date Resolved Date Claudication in peripheral vascular disease 05/05/2019 06/16/2019 COPD, moderate 10/17/2015 03/17/2019 Overview: Per COPD GOLD Classification Left subclavian artery occlusion 06/17/2015 12/21/2019 Dyslipidemia, goal LDL below 70 04/09/2009 08/05/2010 Overview: Per Lipid Taxonomy. Metabolic syndrome 10/26/2007 5 Pain in limb 04/08/2007 11/01/2014 CHEST PAIN NEC 02/24/2006 11/01/2014 COPD, severity to be determined 02/24/2006 09/13/2007 Calculus of gallbladder with out mention of cholecystitis or obstruction 04/14/2004 11/30/2014 Overview: one cm gall stone Mixed dyslipidemia 04/14/2004 9 Overview: Per Lipid Taxonomy. Carotid stenosis, non-symptomatic 09/21/2002 10/26/2017 Menopause 06/13/2001 11/01/2014 HYPERTENSION NOS 01/25/2001 08/05/2010 Overview: Modified per HTN protocol #16. INTRACTIBLE GERD;H PYLORI NE G;FAILED ON HI DOSE RANIT OR LOWER DOSE PRILOSEC 01/25/20012018 Insomnia 01/25/2001 04/11/2015 Overview: ICD-10 update of inactive term INFEC OTITIS EXTERNA NOS 01/25/200106/2014 Tobacco use disorder 01/25/2001 019 Paroxysmal SVT (supraventricular tachycardia) 01/31/2019 Overview: AFib? diagnosed 30 yrs ago Vertigo 04/11/2015 Cerebrovascular event, ill-d efined, within last 8 weeks 08/16/2008 Overview: Modified per CVA protocol #8 Herpes zoster 04/11/2015 Pericardial effusion 018 Positive PPD 05/10/2018 documented as of this encounter (statuses as of 11/26/2023) Immunizations Name Administration Dates Next Due COVID-19 mRNA, LNP-s, No Pre serve, 2-Dose Series ([place]) 03/25/2021,08/27/2020,08/06/2020 COVID-19, MRNA-LNP, 23-24, P F, 30 MCG/0.3 mL, 12 YRS AND ABOVE, IM (PFIZER-Comirnaty) 06/14/2023 Covid-19, Mrna, Lnp-s, Pf, B ivalent, 30 Mcg, IM, 12 yrs and above (Pfizer) 04/28/2022 H1N1 2009 Influenza, IM 05/15/2009 Pneumococcal Conjugate Vacc, 13 Valent (Prevnar) 11/01/2014 Pneumococcal Polysaccharide PPV23 (Pneumovax) 06/30/2016,05/03/2003 Season Influenza, Quad, PF, Adjuvanted, 65+ Yrs, IM (FLUAD) 02/16/2020 Seasonal Influenza Virus Vac cine, Unspecified Formulation 01/20/2022,02/06/2021,02/16/2020,01/10,02/14/2018,01/31/2018,03/03/2017 ,02/28/2016,01/11/2014,01/31/2013,10/0 05/2011,01/27/2011,01/30/2010, 0,01/18/2009,02/29/2008,01/31/2007,05/2005,03/17/2005 Seasonal Influenza, Quadriva lent Hd (Fluzone Hd) 01/20/2022,02/06/2021 Seasonal Influenza, Quadriva lent, No Preserve, IM 01/31/2018,02/28/2016,02/05/2015 Seasonal Influenza, Split, I IV3, With Preserve, Inj 03/03/2017,01/11/2014,01/31/2013,01/31,01/27/2011,01/30/2010,01/18/2009 ,02/29/2008,01/31/2007,01/31/2006 Seasonal Influenza, Trivalen t, Adjuvanted, 65+ yrs 01/10/2019 TDAP, Age 7 and older, IM (Adacel) 10/26/2007 Varicella Zoster Vaccine (Adult) 03/15/2015 Zoster Vaccine Recombinant (Shingrix) 01/13/2019 documented as of this encounter Social History Tobacco Use Types Packs/Day Years Used Date Smoking Tobacco: Former Cigarettes 1 59 0 [birth year]23/1958 - 12/23/2018 Smokeless Tobacco: Never Comments:Started smoking age - 8 Alcohol Use Standard Drinks/Week Comments No 0 (1 standard drink = 0.6 oz pur e alcohol) PHQ-2 Answer Date Recorded PHQ Adult Total Score 2 08/25/2022 Hunger Vital Sign Answer Date Recorded Within the past 12 months, y ou worried that your food would run out before you got the money to buy more. Never true 08/26/19 23 Within the past 12 months, t he food you bought just didn't last and you didn't have money to get more. Never true 08/25/2022 Sex and Gender Information Value Date Recorded Sex Assigned at Female 07/16/2020 2:10 PM EDT Gender Identity Female 07/16/2020 2:10 PM EDT Sexual Orientation Straight 07/16/2020 2: 10 PM EDT Job Start Date Occupation Industry Not on file Not on file Not on file documented as of this encounter Plan of Treatment Upcoming Encounters Date Type Department Care Team (Late st Contact Info) Description 12/20/2023 1:40 PM EDT Office Visit Family Medicine [address] [place] [phone] Christin Welch PA-C [address] [place] [address] [place] [id number] 06/20/2024 1:40 PM EST Office Visit Family Medicine [address] [place] [phone] Daysi Pham MD [address] [place] [address] [place] [phone] 08/29/2024 3:00 PM EDT Nurse Only Ancillary [address] [place] [phone] Zabrina, Nurse Annual Wellness [address] [place] [address] [place] [phone] Health Maintenance Due Date Last Done Comments Alpha-1 Antitrypsin 1967 O2 ASSESSMENT COMPLETED IN PAST YEAR FOR COPD 1967 Sigmoidoscopy 1994 Fecal Occult Blood Test 11/06/2006 11/06/2005 DTaP,Tdap,and Td Vaccines (2 - Td or Tdap) 10/25/2017 10/26/2007 Colonoscopy 01/24/2019 01/24/2018, 09/01, 08/11/2007, Additional history exists Colorectal Cancer Screening 01/24/2019 Zoster Vaccines (3 of 3) 03/10/2019 01/13/2019, 03/03 Cologuard 11/04/2020 11/04/2017 COVID-19 Vaccine ( season) 2023 06/14/2023, 04/28/2022, 03/25/2021, Additional history exists *CXR OR CT FOR COPD EVER 11/14/2023 Mammogram 11/19/2023 11/18/2022, 08/2022, 11/04/2022, Additional history exists Influenza Vaccine (FLU shot) (#1) 2024 01/20/2022, 01/20/2022, 02/06/2021, Additional history exists Diabetic Eye Exam 02/23/2024 02/22/2023, , 07/02/2021, Additional history exists HbA1c 05/17/2024 11/15/2023, 05/03, 08/11/2022, Additional history exists Depression Screening 08/26/2024 08/27/2023, 08/27/19 24 Diabetic Foot Exam 08/26/2024 08/27/2023, 0 08/25/2022, 08/25/2021 Albumin/Creatinine Ratio 11/14/2024 024, 03/02/2023, 03/09/2022, Additional history exists GFR 11/14/2024 11/15/2023, 05/03, 08/11/2022, Additional history exists DXA Scan 11/21/2025 11/21/2018, 11/01, 11/20/2010, Additional history exists Postponed from 11/21/2021 (Other) Pneumococcal Vaccine: 65+ Years Completed 06/30/2016, 11/01/2014, 05/03/2003 RETIRED - COLONOSCOPY-ANNUAL AGES 18-100 Discontinued 01/24/2018, 09/28/2007, 08/11/2007, Additional history exists *BASELINE EKG FOR HTN Completed 02/24/2022 , 02/06/2021, 02/06/2020, Additional history exists HPV (Gardasil) Vaccine Aged Out No lo nger eligible based on patient's age to complete this topic Hepatitis B Vaccine Aged Out No longe r eligible based on patient's age to complete this topic MENINGOCOCCAL (MENACTRA/MENVEO) Aged Out No longer eligible based on patient's age to complete this topic documented as of this encounter Medical Devices Not on filedocumented as of this encounter Care Teams Grocery Clerk Relationship Specialty Start Date End Date Daysi Pham MD [address] [place] [address] [place] [phone] PCP - General Family Medicine 07/01/17 documented as of this encounter
--- OUTSIDE RECORDS SUMMARY | 2023-11-26 18:46 | External Medical Summary | Summary of Care ---
Author Name Unknown Organization [facility] Address [address] [place] [address] Phone [phone] Care Team Providers Care Project Coach Name Role Phone Daysi Pham MD Primary Care Provide r Encounter Details Date Type Department Care Team (Late st Contact Info) Description 11/20/2023 Orders Only PATIENT PORTAL DO NOT DELETE THIS DEPT USED BY [place] [id number] Allergies Active Allergy Reactions Criticality Noted Date Comments Amoxicillin Rash 11/19/2011 Levofloxacin Other (Please comment) 11/13/2013 Weakness, lightheadedness, nausea Niacin Er 01/30/2010 Burned throat. Prednisone 09/03/2012 Blood pressure went up. Bupropion Hcl 01/30/2010 documented as of this encounter (statuses as of 11/20/2023) Medications Medication Sig Dispensed Refills Start Date [...] daily . Active nitroglycerin (NITROSTAT) 0.4 MG SUBLIndications:Custom Protection Officer lev coronary artery disease Place 1 Tab under the tongue as needed for Pain, Chest. May repeat 3 times. If chest pain continues, call 911. 25 Tab 1 01/31/2019 Active Wheat Dextrin (BENEFIBER) powderIndications:DeYapa Take by mouth . 1 teaspoon daily [...] instructions reported), Indications: allergies, Reported on 08/21/2022 OneTouch Verio w/Device KitIndications:Type 2 diabetes mellitus with hemoglobin A1c goal of less than 8.0% ([facility]) Use once a day Dx: E11.9 1 [...] MOUTH EVERY MORNING 90 Tablet 3 02/26/2023 Active Ipratropium [place] 0.03 % Nasal Solution (Atrovent)Indication s:Rhinorrhea ADMINISTER 2 SPRAYS INTO EACH NOSTRIL 4 TIMES A DAY NEEDED FOR RHINITIS. FOR RUNNY NOSE 90 mL 1 03/15/2023 Active Ipratropium-Albutero l 20-100 MCG/ACT Inhalation Aerosol Solution (Combivent Respimat)Indications :COPD, group B, by GOLD 2017 classification ([facility]) INHALE 1 PUFF BY MOUTH IN THE [...] hemoglobin A1c goal of less than 8.0% ([facility]) USE TO TEST BLOOD SUGAR ONCE A DAY 100 Strip 3 08/09/2023 Active Lisinopril 5 MG Oral Tablet (Prinivil)Indication s:HTN, goal below 140/90 TAKE ONE TABLET BY MOUTH EVERY DAY 90 Tablet 3 08/12/2023 5 Active Pregabalin 25 MG Oral Capsule (Lyrica)Indications: Type 2 diabetes, controlled, with neuropathy ([facility]) TAKE ONE CAPSULE BY MOUTH EVERY MORNING AND TAKE ONE CAPSULE BEFORE BEDTIME 60 Capsule 2 09/30/2023 Active Atorvastatin Calcium 80 MG Oral Tablet (Lipitor)Indications :Dyslipidemia, goal LDL below 100 TAKE ONE TABLET BY MOUTH EVERYday 100 Tablet 3 10/18/2023 5 Active OneTouch Delica Plus [id number] :Type 2 diabetes mellitus with hemoglobin A1c goal of less than 8.0% ([facility]) USE TO TEST BLOOD SUGAR ONCE A DAY DIRECTED 100 Each 10/30/2023 5 Active Amitriptyline HCl 10 MG [...] as of this encounter (statuses as of 11/20/2023) Active Problems Problem Noted Date Diagnosed Date [...] as of this encounter (statuses as of 11/20/2023) Resolved Problems Problem Noted Date Diagnosed Date [...] as of this encounter (statuses as of 11/20/2023) Immunizations Name Administration Dates Next Due COVID-19 mRNA, LNP-s, No Pre serve, 2-Dose Series ([employer]) 03/25/2021,08/27/2020,08/06/2020 COVID-19, MRNA-LNP, 23-24, P F, 30 MCG/0.3 mL, 12 YRS AND ABOVE, IM (PFIZER-Comirnat) 06/14/2023 Covid-19, Mrna, Lnp-s, Pf, B ivalent, 30 Mcg, IM, 12 yrs and above (Pfizer) 04/28/2022 H1N1 2009 Influenza, IM 05/15/2009 Pneumococcal Conjugate Vacc, 13 Valent (Prevnar) 11/01/2014 Pneumococcal Polysaccharide PPV23 (Pneumovax) 06/30/2016,05/03/2003 Season Influenza, Quad, PF, Adjuvanted, 65+ Yrs, IM (FLUAD) 02/16/2020 Seasonal Influenza Virus Vac cine, Unspecified Formulation 01/20/2022,02/06/2021,02/16/2020,01/10,02/14/2018,01/31/2018,03/03/2017 ,02/28/2016,01/11/2014,01/31/2013,05/2011,01/27/2011,01/30/2010, 0,01/18/2009,02/29/2008,01/31/2007,05/2005,03/17/2005 Seasonal Influenza, Quadriva lent Hd (Fluzone [...] money to buy more. Never true 08/26/19 Within the past 12 months, t he [...] 1:40 PM EDT Office Visit Family Medicine [address] [place] [phone] Christin Welch PA-C [address] [place] [address] [place] [phone] 06/20/2024 1:40 PM EST Office Visit Family Medicine [address] [place] [phone] Daysi Pham MD [address] [place] [address] [place] [phone] 08/29/2024 3:00 PM EDT Nurse Only Ancillary [address] [place] [phone] Zabrina, Nurse Annual Wellness [address] [place] [address] [place] [phone] Health Maintenance Due Date Last Done Comments [...] FOR COPD EVER 11/14/2023 Mammogram 11/19/2023 11/18/2022, 07/0 08/2022, 11/04/2022, Additional history exists Influenza Vaccine (FLU shot) (#1) 2024 01/20/2022, 01/20/2022, 02/06/2021, Additional history exists Diabetic Eye Exam 02/23/2024 02/22/2023, , 07/02/2021, Additional history exists HbA1c 05/17/2024 11/15/2023, 05/03, 08/11/2022, Additional history exists Depression Screening 08/26/2024 08/27/2023, 08/27/19 Diabetic Foot Exam 08/26/2024 08/27/2023, 0 08/25/2022, [...] filedocumented as of this encounter Care Teams Project Coach Relationship Specialty Start Date End Date Daysi Pham MD [address] [place] [address] [place] [phone] PCP - General Family Medicine 07/01/17 documented as of this encounter
--- OUTSIDE RECORDS SUMMARY | 2023-11-26 18:46 | External Medical Summary | Summary of Care ---
Author Name Unknown Organization [facility] Address [address] [place] [address] Phone [phone] Care Team Providers Care Residential Mortgage Underwriter Name Role Phone Daysi Pham MD Primary Care Provide r Reason for Visit * Reason Onset Date Comments Appointment 11/18/2023 Nephrology Encounter Details Date Type Department Care Team (Late st Contact Info) Description 11/18/2023 Telephone Family Medicine [address] [phone] Daysi Pham MD [address] [place] [address] [place] [phone] Appointment (Nephrology ) Allergies Active Allergy Reactions Criticality Noted Date Comments Amoxicillin Rash 11/19/2011 Levofloxacin Other (Please comment) 11/13/2013 Weakness, lightheadedness, nausea Niacin Er 01/30/2010 Burned throat. Prednisone 09/03/2012 Blood pressure went up. Bupropion Hcl 01/30/2010 documented as of this encounter (statuses as of 11/18/2023) Medications Medication Sig Dispensed Refills Start Date End Date Status VITAMIN B COMPLEX PO CAPSIndications:supp lementation Take by mouth 1 Capsule daily . Active CO Q 10 100 MG PO CAPSIndications:leg pain Take by mouth 100 mg daily . Active ASPIRIN 81 MG PO TABSIndications:ISO Group Take 1 Tablet by mouth in the morning. Active oxygen GAS Use 2 L/min(Oxygen) as directed at bedtime. Active Respiratory Therapy Supplies (NEBULIZER) DEVIIndications:COPD , moderate (HCC) Use as directed. Duonebs, 3 ml's every 6 hours as needed 1 Device 05/21/2016 Active Multiple Vitamins-Minerals (MULTIVITAMIN WOMEN) TABSIndications:[employer] Take by mouth 1 Tablet daily . Active nitroglycerin (NITROSTAT) 0.4 MG SUBLIndications:Stunt Woman lev coronary artery disease Place 1 Tab under the tongue as needed for Pain, Chest. May repeat 3 times. If chest pain continues, call 911. 46 Tab 1 01/31/2019 Active Wheat Dextrin (BENEFIBER) powderIndications:[employer] Take by mouth . 1 teaspoon daily [...] goal of less than 8.0% ([facility]) Use once a day Dx: E11.9 [...] 90 Tablet 3 02/26/2023 4 Active Ipratropium [place] 0.03 % Nasal Solution (Atrovent)Indication s:Rhinorrhea ADMINISTER 2 SPRAYS INTO EACH NOSTRIL 4 TIMES A DAY NEEDED FOR RHINITIS. FOR RUNNY NOSE 90 mL 1 03/15/2023 Active Ipratropium-Albutero l 20-100 MCG/ACT Inhalation Aerosol Solution (Combivent Respimat)Indications :COPD, group B, by GOLD 2017 classification ([facility]) INHALE 1 PUFF BY MOUTH IN THE MORNING, 1 PUFF AT NOON, 1 PUFF IN THE EVENING, AND 1 PUFF BEFORE BEDTIME 12 g 1 04/16/2023 4 Active Apixaban 5 MG Oral Tablet (Eliquis)Indications :Cerebrovascular disease, arteriosclerotic, post-stroke,Paroxysm al atrial fibrillation ([facility]) TAKE ONE TABLET BY MOUTH TWICE A [...] goal of less than 8.0% ([facility]) USE TO TEST BLOOD SUGAR ONCE A DAY 100 Strip 3 08/09/2023 Active Lisinopril 5 MG Oral Tablet (Prinivil)Indication s:HTN, goal below 140/90 TAKE ONE TABLET BY MOUTH EVERY DAY 90 Tablet 3 08/12/2023 5 Active Pregabalin 25 MG Oral Capsule (Lyrica)Indications: Type 2 diabetes, controlled, with neuropathy ([facility]) TAKE ONE CAPSULE BY MOUTH EVERY MORNING AND TAKE ONE CAPSULE BEFORE BEDTIME 60 Capsule 2 09/30/2023 Active Atorvastatin Calcium 80 MG Oral Tablet (Lipitor)Indications :Dyslipidemia, goal LDL below 100 TAKE ONE TABLET BY MOUTH EVERYday 100 Tablet 3 10/18/2023 5 Active OneTouch Delica Plus [id number] :Type 2 diabetes mellitus with hemoglobin A1c goal of less than 8.0% ([facility]) USE TO TEST BLOOD SUGAR ONCE A DAY DIRECTED 100 Each 1 10/30/2023 5 Active Amitriptyline HCl 10 MG Oral Tablet (Elavil)Indications: Insomnia, unspecified type Take 1 Tablet by mouth at bedtime. 100 Tablet 1 11/01/2023 Active Empagliflozin 10 MG Oral Tablet (Jardiance)Indicatio ns:Type 2 diabetes mellitus with hemoglobin A1c goal of less than 8.0% ([facility]) Take 1 Tablet by mouth in the morning. 90 Tablet 3 11/02/2023 Active documented as of this encounter (statuses as of 11/18/2023) Active Problems Problem Noted Date Diagnosed Date [...] as of this encounter (statuses as of 11/18/2023) Resolved Problems Problem Noted Date Diagnosed Date [...] as of this encounter (statuses as of 11/18/2023) Immunizations Name Administration Dates Next Due COVID-19 mRNA, LNP-s, No Pre serve, 2-Dose Series ([employer]) 03/25/2021,08/27/2020,08/06/2020 COVID-19, MRNA-LNP, 23-24, P F, 30 MCG/0.3 mL, 12 YRS AND ABOVE, IM ([facility]) 06/14/2023 Covid-19, Mrna, Lnp-s, Pf, B ivalent, 30 Mcg, IM, 12 yrs and above ([employer]) 04/28/2022 H1N1 2009 Influenza, IM 05/15/2009 Pneumococcal Conjugate Vacc, 13 Valent (Prevnar) 11/01/2014 Pneumococcal Polysaccharide PPV23 (Pneumovax) 06/30/2016,05/03/2003 Season Influenza, Quad, PF, Adjuvanted, 65+ Yrs, IM (FLUAD) 02/16/2020 Seasonal Influenza Virus Vac cine, Unspecified Formulation 01/20/2022,02/06/2021,02/16/2020,01/10,02/14/2018,01/31/2018,03/03/2017 ,02/28/2016,01/11/2014,01/31/2013,100 05/2011,01/27/2011,01/30/2010, 0,01/18/2009,02/29/2008,01/31/2007,05/2005,03/17/2005 Seasonal Influenza, Quadriva lent Hd [...] on file documented as of this encounter Miscellaneous Notes * Telephone Encounter - Laura Espino OSA - 11/18/2023 9:18 AM EDT Pastora needs an appt with Nephrology for: Proteinuria [R80.9] - Primary documented in this encounter Plan of Treatment Upcoming Encounters Date Type Department Care Team (Late st Contact Info) Description 12/20/2023 1:40 PM EDT Office Visit [address] [place] [phone] Christin Welch PA-C [address] [place] [address] [place] [phone] 06/20/2024 1:40 PM EST Office Visit [address] [place] [phone] Daysi Pham MD [address] [place] [address] [place] [address] 08/29/2024 3:00 PM EDT Nurse Only Ancillary Margarita Santiago[address] [place] [address] [place], Nurse Annual Wellness [address] [place] [address] [place] [address] Health Maintenance Due Date Last Done Comments [...] FOR COPD EVER 11/14/2023 Mammogram 11/19/2023 11/18/2022, 0708/2022, 11/04/2022, Additional history exists Influenza Vaccine (FLU [...] filedocumented as of this encounter Care Teams Residential Mortgage Underwriter Relationship Specialty Start Date End Date Daysi Pham MD [address] [place] [address] [place] [phone] PCP - General Family Medicine 07/01/17 documented as of this encounter
--- OUTSIDE RECORDS SUMMARY | 2023-11-26 18:46 | External Medical Summary | Summary of Care ---
Author Name Unknown Organization [facility] Address [address] [place] [address] Phone [phone] Care Team Providers Care Assembler Flexible Leads Name Role Phone Daysi Pham MD Primary Care Provide r Reason for Visit * Reason Comments Outpatient Testing Encounter Details Date Type Department Care Team (Late st Contact Info) Description 11/22/2023 2:00 PM EDT Laboratory Laboratory [address] [place] [phone] [place] [address] Hyperkalemia Allergies Active Allergy Reactions Criticality Noted Date Comments Amoxicillin Rash 11/19/2011 Levofloxacin Other (Please comment) 11/13/2013 Weakness, lightheadedness, nausea Niacin Er 01/30/2010 Burned throat. Prednisone 09/03/2012 Blood pressure went up. Bupropion Hcl 01/30/2010 documented as of this encounter (statuses as of 11/22/2023) Medications Medication Sig Dispensed Refills Start Date End Date Status VITAMIN B COMPLEX PO CAPSIndications:supp lementation Take by mouth 1 Capsule daily . Active CO Q 10 100 MG PO CAPSIndications:leg pain Take by mouth 100 mg daily . Active ASPIRIN 81 MG PO TABSIndications:hear Tongxue Take 1 Tablet by mouth in the morning. Active oxygen GAS Use 2 L/min(Oxygen) as directed at bedtime. Active Respiratory Therapy Supplies (NEBULIZER) DEVIIndications:COPD , moderate (HCC) Use as directed. Duonebs, 3 ml's every 6 hours as needed 1 Device 05/21/2016 Active Multiple Vitamins-Minerals (MULTIVITAMIN WOMEN) TABSIndications:[email or web address] Take by mouth 1 Tablet daily . Active nitroglycerin (NITROSTAT) 0.4 MG SUBLIndications:Clinical Informatics Physician lev coronary artery disease Place 1 Tab under the tongue as needed for Pain, Chest. May repeat 3 times. If chest pain continues, call 911. 25 Tab 1 01/31/2019 Active Wheat Dextrin (BENEFIBER) powderIndications:[employer] Take by mouth . 1 teaspoon daily [...] hemoglobin A1c goal of less than 8.0% ([facility]) Use once a day Dx: [...] 90 Tablet 3 02/26/2023 4 Active Ipratropium [place] 0.03 % Nasal Solution (Atrovent)Indication s:Rhinorrhea ADMINISTER 2 SPRAYS INTO EACH NOSTRIL 4 TIMES A DAY NEEDED FOR RHINITIS. FOR RUNNY NOSE 90 mL 1 03/15/2023 Active Ipratropium-Albutero l 20-100 MCG/ACT Inhalation Aerosol Solution (Combivent Respimat)Indications :COPD, group B, by GOLD 2017 classification ([facility]) INHALE 1 PUFF BY MOUTH IN THE MORNING, 1 PUFF AT NOON, 1 PUFF IN THE EVENING, AND 1 PUFF BEFORE BEDTIME 12 g 1 04/16/2023 4 Active Apixaban 5 MG Oral Tablet (Eliquis)Indications :Cerebrovascular disease, arteriosclerotic, post-stroke,Paroxysm al atrial fibrillation ([facility]) TAKE ONE TABLET BY MOUTH [...] hemoglobin A1c goal of less than 8.0% ([facility]) USE TO TEST BLOOD SUGAR ONCE A DAY 100 Strip 3 08/09/2023 Active Lisinopril 5 MG Oral Tablet (Prinivil)Indication s:HTN, goal below 140/90 TAKE ONE TABLET BY MOUTH EVERY DAY 90 Tablet 3 08/12/2023 5 Active Pregabalin 25 MG Oral Capsule (Lyrica)Indications: Type 2 diabetes, controlled, with neuropathy ([facility]) TAKE ONE CAPSULE BY MOUTH EVERY MORNING AND TAKE ONE CAPSULE BEFORE BEDTIME 60 Capsule 2 09/30/2023 Active Atorvastatin Calcium 80 MG Oral Tablet (Lipitor)Indications :Dyslipidemia, goal LDL below 100 TAKE ONE TABLET BY MOUTH EVERYday 100 Tablet 3 10/18/2023 5 Active OneTouch Delica Plus [id number] :Type 2 diabetes mellitus with hemoglobin A1c goal of less than 8.0% ([facility]) USE TO TEST BLOOD SUGAR ONCE A DAY DIRECTED 100 Each 1 10/30/2023 5 Active Amitriptyline HCl 10 MG Oral Tablet (Elavil)Indications: Insomnia, unspecified type Take 1 Tablet by mouth at bedtime. 100 Tablet 1 11/01/2023 Active Empagliflozin 10 MG Oral Tablet (Jardiance)Indicatio ns:Type 2 diabetes mellitus with hemoglobin A1c goal of less than 8.0% ([facility]) Take 1 Tablet by mouth in the morning. 90 Tablet 3 11/02/2023 Active documented as of this encounter (statuses as of 11/22/2023) Active Problems Problem Noted Date Diagnosed Date [...] as of this encounter (statuses as of 11/22/2023) Resolved Problems Problem Noted Date Diagnosed Date [...] as of this encounter (statuses as of 11/22/2023) Immunizations Name Administration Dates Next Due COVID-19 mRNA, LNP-s, No Pre serve, 2-Dose Series ([employer]) 03/25/2021,08/27/2020,08/06/2020 COVID-19, MRNA-LNP, 23-24, P F, 30 MCG/0.3 mL, 12 YRS AND ABOVE, IM ([facility] 06/14/2023 Covid-19, Mrna, Lnp-s, Pf, B ivalent, 30 Mcg, IM, 12 yrs and above ([employer]) 04/28/2022 H1N1 2009 Influenza, IM 05/15/2009 Pneumococcal [...] 12/20/2023 1:40 PM EDT Office Visit Family [address] [phone] Christin Welch PA-C [address] [place] [address] [place] [phone] 06/20/2024 1:40 PM EST Office Visit Family [address] [place] [phone] Daysi Pham MD [address] [place] [address] [place] [phone] 08/29/2024 3:00 PM EDT Nurse Only Ancillary [address] [place] [address] [place], Nurse Annual Wellness [address] [place] [address] [place] [phone] Pending Results Name Type Priority Associated Diagnoses Date /Time POTASSIUM Lab Routine Hyperkalemia 11/22/2023 1:38 PM EDT Health Maintenance Due Date Last Done Comments [...] Not on filedocumented as of this encounter Visit Diagnoses Diagnosis Hyperkalemia Hyperpotassemia documented in this encounter Care Teams Assembler Flexible Leads Relationship Specialty Start Date End Date Daysi Pham MD [address] [place] [address] [place] [phone] PCP - General Family Medicine 07/01/17 documented as of this encounter
--- OUTSIDE RECORDS SUMMARY | 2023-11-26 18:46 | External Medical Summary | Summary of Care ---
Author Name Unknown Organization [facility] Address [address] [place] [address] Phone [phone] Care Team Providers Care Social Professionals Name Role Phone Daysi Pham MD Primary Care Provide r Reason for Visit * Reason Onset Date Comments Appointment 11/18/2023 Renal US Encounter Details Date Type Department Care Team (Late st Contact Info) Description 11/18/2023 Telephone Family Medicine [address] [phone] Daysi Pham MD [address] [place] [address] [place] [phone] Appointment (Renal US ) Allergies Active Allergy Reactions Criticality Noted [...] daily . Active ASPIRIN 81 MG PO TABSIndications:Allied Fiber Take 1 Tablet by mouth in the morning. Active oxygen GAS Use 2 L/min(Oxygen) as directed at bedtime. Active Respiratory Therapy Supplies (NEBULIZER) DEVIIndications:COPD , moderate (HCC) Use as directed. Duonebs, 3 ml's every 6 hours as needed 1 Device 05/21/2016 Active Multiple Vitamins-Minerals (MULTIVITAMIN WOMEN) TABSIndications:Protein Forest Take by mouth 1 Tablet daily . Active nitroglycerin (NITROSTAT) 0.4 MG SUBLIndications:Retail Account Manager lev coronary artery disease Place 1 Tab under the tongue as needed for Pain, Chest. May repeat 3 times. If chest pain continues, call 911. 41 Tab 1 01/31/2019 Active Wheat Dextrin (BENEFIBER) powderIndications:[employer] Take by mouth . 1 teaspoon daily [...] hemoglobin A1c goal of less than 8.0% ([facility]) Use once a day Dx: E11.9 1 [...] 90 Tablet 3 02/26/2023 4 Active Ipratropium [place] 0.03 % Nasal Solution (Atrovent)Indication s:Rhinorrhea ADMINISTER 2 SPRAYS INTO EACH NOSTRIL 4 TIMES A DAY NEEDED FOR RHINITIS. FOR RUNNY NOSE 90 mL 1 03/15/2023 Active Ipratropium-Albutero l 20-100 MCG/ACT Inhalation Aerosol Solution (Combivent Respimat)Indications :COPD, group B, by GOLD 2017 classification ([facility]) INHALE 1 PUFF BY MOUTH IN THE MORNING, 1 PUFF AT NOON, 1 PUFF IN THE EVENING, AND 1 PUFF BEFORE BEDTIME 12 g 1 04/16/2023 4 Active Apixaban 5 MG Oral Tablet (Eliquis)Indications :Cerebrovascular disease, arteriosclerotic, post-stroke,Paroxysm al atrial fibrillation ([facility]) TAKE ONE TABLET BY MOUTH TWICE A [...] hemoglobin A1c goal of less than 8.0% ([facility]) USE TO TEST BLOOD SUGAR ONCE A DAY 100 Strip 3 08/09/2023 Active Lisinopril 5 MG Oral Tablet (Prinivil)Indication s:HTN, goal below 140/90 TAKE ONE TABLET BY MOUTH EVERY DAY 90 Tablet 3 08/12/2023 5 Active Pregabalin 25 MG Oral Capsule (Lyrica)Indications: Type 2 diabetes, controlled, with neuropathy ([facility]) TAKE ONE CAPSULE BY MOUTH EVERY MORNING AND TAKE ONE CAPSULE BEFORE BEDTIME 60 Capsule 2 09/30/2023 Active Atorvastatin Calcium 80 MG Oral Tablet (Lipitor)Indications :Dyslipidemia, goal LDL below 100 TAKE ONE TABLET BY MOUTH EVERYday 100 Tablet 3 10/18/2023 5 Active OneTouch Delica Plus [id number] :Type 2 diabetes mellitus with hemoglobin A1c goal of less than 8.0% ([facility]) USE TO TEST BLOOD SUGAR ONCE A DAY DIRECTED 100 Each 1 10/30/2023 5 Active Amitriptyline HCl 10 MG Oral Tablet (Elavil)Indications: Insomnia, unspecified type Take 1 Tablet by mouth at bedtime. 100 Tablet 1 11/01/2023 Active Empagliflozin 10 MG Oral Tablet (Jardiance)Indicatio ns:Type 2 diabetes mellitus with hemoglobin A1c goal of less than 8.0% ([facility]) Take 1 Tablet by mouth in the [...] mRNA, LNP-s, No Pre serve, 2-Dose Series ([employer]) 03/25/2021,08/27/2020,08/06/2020 COVID-19, MRNA-LNP, 23-24, P F, 30 MCG/0.3 mL, 12 YRS AND ABOVE, IM ([facility]) 06/14/2023 Covid-19, Mrna, Lnp-s, Pf, B ivalent, 30 Mcg, IM, 12 yrs and above ([employer]) 04/28/2022 H1N1 2009 Influenza, IM 05/15/2009 Pneumococcal Conjugate Vacc, 13 Valent (Prevnar) 11/01/2014 Pneumococcal Polysaccharide PPV23 (Pneumovax) 06/30/2016,05/03/2003 Season Influenza, Quad, PF, Adjuvanted, 65+ Yrs, IM ([facility]) 02/16/2020 Seasonal Influenza Virus Vac cine, Unspecified Formulation 01/20/2022,02/06/2021,02/16/2020,01/10,02/14/2018,01/31/2018,03/03/2017 ,02/28/2016,01/11/2014,01/31/2013,05/2011,01/27/2011,01/30/2010, 0,01/18/2009,02/29/2008,01/31/2007,05/2005,03/17/2005 Seasonal Influenza, Quadriva lent Hd (Fl[facility]d) 01/20/2022,02/06/2021 Seasonal Influenza, Quadriva lent, No Preserve, IM 01/31/2018,02/28/2016,02/05/2015 Seasonal Influenza, Split, I IV3, With Preserve, Inj 03/03/2017,01/11/2014,01/31/2013,01/31,01/27/2011,01/30/2010,01/18/2009 ,02/29/2008,01/31/2007,01/31/2006,03/03 Seasonal Influenza, Trivalen t, Adjuvanted, 65+ yrs [...] Encounter - Laura Espino OSA - 11/18/2023 11:43 AM EDT Renal US scheduled, pt aware. * Telephone Encounter - Laura Espino OSA - 11/18/2023 9:27 AM EDT I left message on patient's VM to call me (RE: Scheduling Renal US). documented in this encounter Plan of Treatment Upcoming Encounters Date Type Department Care Team (Late st Contact Info) Description 11/19/2023 2:00 PM EDT Imaging Radiology [address] [place] [phone] 12/20/2023 1:40 PM EDT Office Visit [address] [place] [phone] Christin Welch PA-C [address] [place] [address] [place] [address] 06/20/2024 1:40 PM EST Office Visit [address] [place] [phone] Daysi Pham MD [address] [place] [address] [place] [phone] 08/29/2024 3:00 PM EDT Nurse Only Ancillary [address] [place] [address] [place], Nurse Annual Wellness [address] [place] [address] [place] [phone] Health Maintenance Due Date Last Done Comments [...] filedocumented as of this encounter Care Teams Social Professionals Relationship Specialty Start Date End Date Daysi Pham MD [address] [place] [address] [place] [phone] PCP - General Family Medicine 07/01/17 documented as of this encounter
--- OUTSIDE RECORDS SUMMARY | 2023-11-26 18:46 | External Medical Summary | Summary of Care ---
Author Name Unknown Organization [facility] Address [address] [place] [address] Phone [phone] Care Team Providers Care Crew Attendant Name Role Phone Daysi Pham MD Primary Care Provide r Reason for Visit * Reason Onset Date Comments Appointment 11/18/2023 Renal US Encounter Details Date Type Department Care Team (Late st Contact Info) Description 11/18/2023 Telephone Family Medicine [address] [phone] Daysi Pham MD [address] [place] [address] [place] [phone] Appointment (Renal US ) [...] daily . Active ASPIRIN 81 MG PO TABSIndications:H5 Take 1 Tablet by mouth in the morning. Active oxygen GAS Use 2 L/min(Oxygen) as directed at bedtime. Active Respiratory Therapy Supplies (NEBULIZER) DEVIIndications:COPD , moderate (HCC) Use as directed. Duonebs, 3 ml's every 6 hours as needed 1 Device 05/21/2016 Active Multiple Vitamins-Minerals (MULTIVITAMIN WOMEN) TABSIndications:[employer] Take by mouth 1 Tablet daily . Active nitroglycerin (NITROSTAT) 0.4 MG SUBLIndications:Forestry Supervisor lev coronary artery disease Place 1 Tab under the tongue as needed for Pain, Chest. May repeat 3 times. If chest pain continues, call 911. 43 Tab 1 01/31/2019 Active Wheat Dextrin (BENEFIBER) powderIndications:ZAPR Take by mouth . 1 teaspoon daily [...] hemoglobin A1c goal of less than 8.0% ([facility]) Use once a day Dx: E11.9 [...] 90 Tablet 3 02/26/2023 4 Active Ipratropium [place] 0.03 % Nasal Solution (Atrovent)Indication s:Rhinorrhea ADMINISTER 2 SPRAYS INTO EACH NOSTRIL 4 TIMES A DAY NEEDED FOR RHINITIS. FOR RUNNY NOSE 90 mL 1 03/15/2023 Active Ipratropium-Albutero l 20-100 MCG/ACT Inhalation Aerosol Solution (Combivent Respimat)Indications :COPD, group B, by GOLD 2017 classification ([facility]) INHALE 1 PUFF BY MOUTH IN THE MORNING, 1 PUFF AT NOON, 1 PUFF IN THE EVENING, AND 1 PUFF BEFORE BEDTIME 12 g 1 04/16/2023 4 Active Apixaban 5 MG Oral Tablet (Eliquis)Indications :Cerebrovascular disease, arteriosclerotic, post-stroke,Paroxysm al atrial fibrillation ([facility]) TAKE ONE TABLET BY MOUTH TWICE [...] hemoglobin A1c goal of less than 8.0% ([facility]) USE TO TEST BLOOD SUGAR ONCE A DAY 100 Strip 3 08/09/2023 Active Lisinopril 5 MG Oral Tablet (Prinivil)Indication s:HTN, goal below 140/90 TAKE ONE TABLET BY MOUTH EVERY DAY 90 Tablet 3 08/12/2023 5 Active Pregabalin 25 MG Oral Capsule (Lyrica)Indications: Type 2 diabetes, controlled, with neuropathy ([facility]) TAKE ONE CAPSULE BY MOUTH EVERY MORNING AND TAKE ONE CAPSULE BEFORE BEDTIME 60 Capsule 2 09/30/2023 Active Atorvastatin Calcium 80 MG Oral Tablet (Lipitor)Indications :Dyslipidemia, goal LDL below 100 TAKE ONE TABLET BY MOUTH EVERYday 100 Tablet 3 10/18/2023 5 Active OneTouch Delica Plus [id number] :Type 2 diabetes mellitus with hemoglobin A1c goal of less than 8.0% ([facility]) USE TO TEST BLOOD SUGAR ONCE A DAY DIRECTED 100 Each 1 10/30/2023 5 Active Amitriptyline HCl 10 MG Oral Tablet (Elavil)Indications: Insomnia, unspecified type Take 1 Tablet by mouth at bedtime. 100 Tablet 1 11/01/2023 Active Empagliflozin 10 MG Oral Tablet (Jardiance)Indicatio ns:Type 2 diabetes mellitus with hemoglobin A1c goal of less than 8.0% ([facility]) Take 1 Tablet by mouth in [...] mRNA, LNP-s, No Pre serve, 2-Dose Series ([employer]) 03/25/2021,08/27/2020,08/06/2020 COVID-19, MRNA-LNP, 23-24, P F, 30 MCG/0.3 mL, 12 YRS AND ABOVE, IM ([facility]) 06/14/2023 Covid-19, Mrna, Lnp-s, Pf, B ivalent, 30 Mcg, IM, 12 yrs and above ([employer]) 04/28/2022 H1N1 2009 Influenza, IM 05/15/2009 Pneumococcal [...] Description 12/20/2023 1:40 PM EDT Office Visit [address] [place] [phone] Christin Welch PA-C [address] [place] [address] [place] [phone] 06/20/2024 1:40 PM EST Office Visit [address] [place] [phone] Daysi Pham MD [address] [place] [address] [place] [address] 08/29/2024 3:00 PM EDT Nurse Only Ancillary [place] [address] [place] [address] [place], Nurse Annual Wellness [address] [place] [address] [place] [address] Health Maintenance Due Date Last Done Comments [...] filedocumented as of this encounter Care Teams Crew Attendant Relationship Specialty Start Date End Date Daysi Pham MD [address] [place] [address] [place] [phone] PCP - General Family Medicine 07/01/17 documented as of this encounter
--- OUTSIDE RECORDS SUMMARY | 2023-11-26 18:46 | External Medical Summary ---
Author Name Unknown Address Unknown Organization [id number]:LABORATORY [facility] - [address] [facility] [id number] Laboratory Report Ordering Provider Test Date Status DIANNA ACEVES 11/22/2023 13:38:08 Final Observation Date Value Abnormality Reference (Units ) Status Potassium 11/22/2023 13:38:08 4.4 3.5-5.1 (m mol/L) Final Performing Location [facility] [address] [facility] [id number]
--- OUTSIDE RECORDS SUMMARY | 2023-11-26 18:47 | External Medical Summary | Summary of Care ---
Author Name Unknown Organization [facility] Address [address] [place] [address] Phone [phone] Care Team Providers Care Gynecological Assistant Name Role Phone Daysi Pham MD Primary Care Provide r Reason for Visit * Reason Comments Medication Refill Encounter Details Date Type Department Care Team (Late st Contact Info) Description 10/18/2023 Refill Family Medicine [address] [phone] Daysi Pham MD [address] [place] [address] [place] [id number] Dyslipidemia, goal LDL below 100 Allergies Active Allergy Reactions Criticality Noted Date Comments Amoxicillin Rash 11/19/2011 Levofloxacin Other (Please comment) 11/13/2013 Weakness, lightheadedness, nausea Niacin Er 01/30/2010 Burned throat. Prednisone 09/03/2012 Blood pressure went up. Bupropion Hcl 01/30/2010 documented as of this encounter (statuses as of 10/18/2023) Medications Medication Sig Dispensed Refills Start Date End Date Status VITAMIN B COMPLEX PO CAPSIndications:sup plementation Take by mouth 1 Capsule daily . Active CO Q 10 100 MG PO CAPSIndications:leg pain Take by mouth 100 mg daily . Active ASPIRIN 81 MG PO TABSIndications:Eyegroovea BackerKit Take 1 Tablet by mouth in the morning. Active oxygen GAS Use 2 L/min(Oxygen) as directed at bedtime. Active Respiratory Therapy Supplies (NEBULIZER) DEVIIndications:BRONZER D, moderate (HCC) Use as directed. Duonebs, 3 ml's every 6 hours as needed 1 Device 7 Active Multiple Vitamins-Minerals (MULTIVITAMIN WOMEN) TABSIndications:gen era Avison Young Take by mouth 1 Tablet daily . Active nitroglycerin (NITROSTAT) 0.4 MG SUBLIndications:Chr onic coronary artery disease Place 1 Tab under the tongue as needed for Pain, Chest. May repeat 3 times. If chest pain continues, call 911. 25 Tab 1 9 Active Wheat Dextrin (BENEFIBER) powderIndications:g al health Take by mouth . 1 teaspoon daily in beverage Active Pomegranate 250 MG CAPSIndications:for circulation Take by mouth . Taking 400 mg daily Active fexofenadine (ARGELIA) 180 MG TabletIndications:N on-seasonal allergic rhinitis, unspecified trigger Take 1 Tab by mouth daily. For allergies. 90 Tab 3 0 Active Additional Information Patient taking differently:180 mg OralDAILY PRN, Allergies, (No instructions reported), Indications: allergies, Reported on 08/21/2022 OneTouch Verio w/Device KitIndications:Type 2 diabetes mellitus with hemoglobin A1c goal of less than 8.0% ([facility]) Use once a day Dx: E11.9 1 Kit 1 Active Fluocinolone Acetonide 0.01 % Otic OilIndications:for ear Administer into ears once a week . On Saturdays Active Systane Preservative Free 0.4-0.3 % Ophthalmic Solution (Polyethyl Glyc-Propyl Glyc PF)Indications:dry eyes Instill into eye 1 Drop daily as needed for Other. Active Vitamin D 125 MCG (5000 UT) Oral Capsule Take by mouth. Active OneTouch Delica Plus [id number] s:Type 2 diabetes mellitus with hemoglobin A1c goal of less than 8.0% (HCC) USE TO TEST BLOOD SUGAR ONCE A DAY DIRECTED 100 Each 1 3 10/29/19 24 Active Isosorbide Mononitrate ER 30 MG Oral Tablet Extended Release 24 Hour (Imdur)Indications: HTN, goal below 140/90 TAKE ONE TABLET BY MOUTH EVERY MORNING 90 Tablet 3 3 02/26/20 24 Active Ipratropium [place] 0.03 % Nasal Solution (Atrovent)Indicatio ns:Rhinorrhea ADMINISTER 2 SPRAYS INTO EACH NOSTRIL 4 TIMES A DAY NEEDED FOR RHINITIS. FOR RUNNY NOSE 90 mL 1 3 Active Ipratropium-Albuter ol 20-100 MCG/ACT Inhalation Aerosol Solution (Combivent Respimat)Indication s:COPD, group B, by GOLD 2017 classification ([facility]) INHALE 1 PUFF BY MOUTH IN THE MORNING, 1 PUFF AT NOON, 1 PUFF IN THE EVENING, AND 1 PUFF BEFORE BEDTIME 12 g 1 3 04/15/20 24 Active Amitriptyline HCl 10 MG Oral Tablet (Elavil)Indications :Insomnia, unspecified type TAKE 1 TABLET BY MOUTH EVERYDAY AT BEDTIME 100 Tablet 1 4 Active Apixaban 5 MG Oral Tablet (Eliquis)Indication s:Cerebrovascular disease, arteriosclerotic, post-stroke,Paroxys mal atrial fibrillation ([facility]) TAKE ONE TABLET BY MOUTH TWICE A DAY 200 Tablet 1 4 Active Esomeprazole Magnesium 40 MG Oral Capsule Delayed ReleaseIndications: Gastroesophageal reflux disease without esophagitis Take 1 Capsule by mouth 2 times a day with morning and evening meals. 200 Capsule 1 4 Active Empagliflozin 10 MG Oral Tablet (Jardiance) Take 1 Tablet by mouth in the morning. 4 Active Atenolol 50 MG Oral Tablet (Tenormin)Indicatio ns:Chronic coronary artery disease TAKE ONE TABLET BY MOUTH TWICE A DAY 200 Tablet 3 4 Active OneTouch Verio In Vitro Strip (Glucose Blood)Indications:T ype 2 diabetes mellitus with hemoglobin A1c goal of less than 8.0% ([facility]) USE TO TEST BLOOD SUGAR ONCE A DAY 100 Strip 3 4 Active Lisinopril 5 MG Oral Tablet (Prinivil)Indicatio ns:HTN, goal below 140/90 TAKE ONE TABLET BY MOUTH EVERY DAY 90 Tablet 3 4 08/12/19 25 Active Pregabalin 25 MG Oral Capsule (Lyrica)Indications :Type 2 diabetes, controlled, with neuropathy (HCC) TAKE ONE CAPSULE BY MOUTH EVERY MORNING AND TAKE ONE CAPSULE BEFORE BEDTIME 60 Capsule 2 4 Active Atorvastatin Calcium 80 MG Oral Tablet (Lipitor)Indication s:Dyslipidemia, goal LDL below 100 TAKE ONE TABLET BY MOUTH EVERYday 100 Tablet 3 4 10/18/19 25 Active Atorvastatin Calcium 80 MG Oral Tablet (Lipitor)Indication s:Dyslipidemia, goal LDL below 100 TAKE ONE TABLET BY MOUTH EVERYday 100 Tablet 3 3 10/18/19 24 Discontinu ed(Refill) documented as of this encounter (statuses as of 10/18/2023) Active Problems Problem Noted Date Diagnosed Date [...] as of this encounter (statuses as of 10/18/2023) Resolved Problems Problem Noted Date Diagnosed Date [...] as of this encounter (statuses as of 10/18/2023) Immunizations Name Administration Dates Next Due COVID-19 mRNA, LNP-s, No Pre serve, 2-Dose Series ([employer]) 03/25/2021,08/27/2020,08/06/2020 COVID-19, MRNA-LNP, 23-24, P F, 30 MCG/0.3 mL, 12 YRS AND ABOVE, IM ([employer]) 06/14/2023 Covid-19, Mrna, Lnp-s, Pf, B ivalent, [...] encounter Miscellaneous Notes * Telephone Encounter - Surekha Adkins [facility] - 10/18/2023 2:23 PM EDTSigned Prescriptions: Disp Refills Atorvastatin Calcium 80 MG Oral Tablet (Li*100 Ta*3 Sig: TAKE ONE TABLET BY MOUTH EVERYdayAuthorizing Provider: DAYSI PHAM User: SUREKHA ADKINS documented in this encounter Plan of Treatment Upcoming Encounters Date Type Department Care Team (Late st Contact Info) Description 12/13/2023 1:40 PM EDT Office Visit [address] [place] [phone] Christin Welch PA-C [address] [place] [address] [place] [phone] 06/20/2024 1:40 PM EST Office Visit [address] [place] [phone] Daysi Pham MD [address] [place] [address] [place] [phone] 08/29/2024 3:00 PM EDT Nurse Only Ancillary [address] [place] [phone] [place], Nurse Annual Wellness [address] [place] [address] [place] [phone] Health Maintenance Due Date Last Done Comments [...] 2023 06/14/2023, 04/28/2022, 03/25/2021, Additional history exists HbA1c 11/10/2023 05/12/2023, 08/01, 09/24/2021, Additional history exists Mammogram 11/19/2023 11/18/2022, 0708/2022, 11/04/2022, Additional history exists Influenza Vaccine (FLU shot) (Season Ended) 2024 01/20/2022, 01/20/2022, 02/06/2021, Additional history exists Diabetic Eye Exam 02/23/2024 02/22/2023, , 07/02/2021, Additional history exists Albumin/Creatinine Ratio 03/02/2024 023, 03/09/2022, 03/17/2021, Additional history exists GFR 05/12/2024 05/12/2023, 08/01, 09/24/2021, Additional history exists Depression Screening 08/26/2024 08/27/2023, 08/27/19 Diabetic Foot Exam 08/26/2024 08/27/2023, 0 08/25/2022, 08/25/2021 DXA Scan 11/21/2025 11/21/2018, 11/01, 11/20/2010, Additional history exists Postponed from 11/21/2021 (Other) Pneumococcal Vaccine: 65+ Years Completed 06/30/2016, 11/01/2014, 05/03/2003 RETIRED - COLONOSCOPY-ANNUAL AGES 18-100 Discontinued 01/24/2018, 09/28/2007, 08/11/2007, Additional history exists GARDASIL-HPV IMMUNIZATION SERIES Aged Out No longer eligible based on patient's age to complete this topic Hepatitis B Aged Out No longer eligi ble based on patient's age to complete this topic MENINGOCOCCAL (MENACTRA/MENVEO) Aged Out No longer eligible based on patient's age to complete this topic documented as of this encounter Medical Devices Not on filedocumented as of this encounter Visit Diagnoses Diagnosis Dyslipidemia, goal LDL below 100 Other and unspecified hyperlipidemia documented in this encounter Care Teams Gynecological Assistant Relationship Specialty Start Date End Date Daysi Pham MD [address] [place] [address] [place] [phone] PCP - General Family Medicine 07/01/17 documented as of this encounter
--- OUTSIDE RECORDS SUMMARY | 2023-11-26 18:47 | External Medical Summary | Summary of Care ---
Author Name Unknown Organization [facility] Address [address] [place] [address] Phone [phone] Care Team Providers Care Baggage Handling Supervisor Name Role Phone Daysi Pham MD Primary Care Provide r Reason for Referral * Medication Prior Authorization - Pending Review Specialty Diagnoses / Procedures Referred By Contac t Referred To Contact Diagnoses Insomnia, unspecified type Surekha Adkins, [facility] [address] [facility] [place] [phone] Referral ID Status Reason Start Date Expiration Date V isits Requested Visits Authorized [id number] Pending Review [phone] Reason for Visit * Reason Onset Date Comments Medication Refill 10/30/2023 Encounter Details Date Type Department Care Team (Late st Contact Info) Description 10/30/[address] [place] [phone] Daysi Pham MD [address] [place] [address] [place] [phone] Insomnia, unspecified type Allergies Active Allergy Reactions Criticality Noted Date Comments Amoxicillin Rash 11/19/2011 Levofloxacin Other (Please comment) 11/13/2013 Weakness, lightheadedness, nausea Niacin Er 01/30/2010 Burned throat. Prednisone 09/03/2012 Blood pressure went up. Bupropion Hcl 01/30/2010 documented as of this encounter (statuses as of 11/01/2023) Medications Medication Sig Dispensed Refills Start Date End Date Status VITAMIN B COMPLEX PO CAPSIndications:sup plementation Take by mouth 1 Capsule daily . Active CO Q 10 100 MG PO CAPSIndications:leg pain Take by mouth 100 mg daily . Active ASPIRIN 81 MG PO TABSIndications:[employer] Take 1 Tablet by mouth in the morning. Active oxygen GAS Use 2 L/min(Oxygen) as directed at bedtime. 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 Duonebs, 3 ml's every 6 hours as needed 1 Device 7 Active Multiple Vitamins-Minerals (MULTIVITAMIN WOMEN) TABSIndications:FlightStats Take by mouth 1 Tablet daily . Active nitroglycerin (NITROSTAT) 0.4 MG SUBLIndications:Chr onic coronary artery disease Place 1 Tab under the tongue as needed for Pain, Chest. May repeat 3 times. If chest pain continues, call 911. 25 Tab 1 9 Active Wheat Dextrin (BENEFIBER) powderIndications:[employer] Take by mouth . 1 teaspoon daily [...] A1c goal of less than 8.0% (HCC) Use once a day Dx: E11.9 1 [...] Tablet 3 3 02/26/20 24 Active Ipratropium [place] 0.03 % Nasal Solution (Atrovent)Indicatio ns:Rhinorrhea ADMINISTER [...] 12 g 1 3 04/15/20 24 Active Apixaban 5 MG Oral Tablet (Eliquis)Indication s:Cerebrovascular disease, arteriosclerotic, post-stroke,Paroxys mal atrial fibrillation ([facility] 100 Tablet 3 4 10/18/19 25 Active OneTouch Delica Plus [id number] s:Type 2 diabetes mellitus with hemoglobin A1c goal of less than 8.0% (HCC) USE TO TEST BLOOD SUGAR ONCE A DAY DIRECTED 100 Each 1 4 10/30/19 25 Active Amitriptyline HCl 10 MG Oral Tablet (Elavil)Indications :Insomnia, unspecified type Take 1 Tablet by mouth at bedtime. 100 Tablet 1 4 Active Amitriptyline HCl 10 MG Oral Tablet (Elavil)Indications :Insomnia, unspecified type TAKE 1 TABLET BY MOUTH EVERYDAY AT BEDTIME 100 Tablet 1 4 10/30/19 24 Discontinu ed(Refill) documented as of this encounter (statuses as of 11/01/2023) Active Problems Problem Noted Date Diagnosed Date [...] as of this encounter (statuses as of 11/01/2023) Resolved Problems Problem Noted Date Diagnosed Date [...] as of this encounter (statuses as of 11/01/2023) Immunizations Name Administration Dates Next Due COVID-19 mRNA, LNP-s, No Pre serve, 2-Dose Series ([employer]) 03/25/2021,08/27/2020,08/06/2020 COVID-19, MRNA-LNP, 23-24, P F, 30 MCG/0.3 mL, 12 YRS AND ABOVE, IM ([facility] [facility] [facility]) 06/14/2023 Covid-19, Mrna, Lnp-s, Pf, B ivalent, [...] encounter Miscellaneous Notes * Telephone Encounter - Chelo Sanchez, pump technician - 11/01/2023 9:50 AM EDT [facility] plan calling to advise Amitriptyline 10mg tablet has an open ended PA in place . Just refill too soon at the moment. Next fill 11/26 Thanks, Chelo Sanchez [employer] [facility] 11/01/2023,9:51 AM * Telephone Encounter - Surekha Adkins [facility] - 11/01/2023 8:50 AM EDTSigned Prescriptions: Disp Refills Amitriptyline HCl 10 MG Oral Tablet (Elavi*100 Ta*1 Sig: Take 1 Tablet by mouth at bedtime.Authorizing Provider: DAYSI PHAMOrderharry User: SUREKHA ADKINS documented in this encounter Plan of Treatment Upcoming Encounters Date Type Department Care Team (Late st Contact Info) Description 12/13/2023 1:40 PM EDT Office Visit [address] [phone] Christin Welch PA-C [address] [place] [address] [place] [phone] 06/20/2024 1:40 PM EST Office Visit [address] [phone] Daysi Pham MD [address] [place] [address] [place] [phone] 08/29/2024 3:00 PM EDT Nurse Only Ancillary [address] [place] [phone] [place], Nurse [address] [place] [phone] Health Maintenance Due Date Last Done Comments [...] 09/24/2021, Additional history exists Mammogram 11/19/2023 11/18/2022, 07/0 08/2022, 11/04/2022, Additional [...] as of this encounter Visit Diagnoses Diagnosis Insomnia, unspecified type documented in this encounter Care Teams Baggage Handling Supervisor Relationship Specialty Start Date End Date Daysi Pham MD [address] [place] [address] [place] [phone] PCP - General Family Medicine 07/01/17 documented as of this encounter
--- OUTSIDE RECORDS SUMMARY | 2023-11-26 18:47 | External Medical Summary ---
Author Name Unknown Address Unknown Organization [id number]:[facility] [place] [address] [facility] [id number] Laboratory Report Ordering Provider Test Date Status PATTI EDWARDS 11/15/2023 13:44:42 Final Observation Date Value Abnormality Reference (Units ) Status MYCODE SPECIMEN-SST 11/15/2023 13:44:42 Freezing of extracted DNA, whole blood and/or serum. Final Performing Location LABORATORY [facility] - [address] [facility] [id number]
--- OUTSIDE RECORDS SUMMARY | 2023-11-26 18:47 | External Medical Summary | Summary of Care ---
Author Name Unknown Organization [facility] Address [address] [place] [address] Phone [phone] Care Team Providers Care Automobile Drivers Name Role Phone Daysi Pham MD Primary Care Provide r Reason for Referral * Medication Prior Authorization - Pending Review Specialty Diagnoses / Procedures Referred By Contac t Referred To Contact Diagnoses Insomnia, unspecified type Surekha Adkins, [facility] [address] [facility] [place] [phone] Referral ID Status Reason Start Date Expiration Date V isits Requested Visits Authorized [id number] Pending Review [phone] Reason for Visit * Reason Onset Date Comments Medication Refill 10/30/2023 Encounter Details Date Type Department Care Team (Late st Contact Info) Description 10/30/[address] [place] [phone] Daysi Pham MD [address] [place] [address] [place] [phone] Insomnia, unspecified type Allergies Active Allergy Reactions [...] daily . Active ASPIRIN 81 MG PO TABSIndications:MedShape Take 1 Tablet by mouth in the morning. Active oxygen GAS Use 2 L/min(Oxygen) as directed at bedtime. 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 Duonebs, 3 ml's every 6 hours as needed 1 Device 7 Active Multiple Vitamins-Minerals (MULTIVITAMIN WOMEN) TABSIndications:Kogeto Take by mouth 1 Tablet daily . Active nitroglycerin (NITROSTAT) 0.4 MG SUBLIndications:Chr onic coronary artery disease Place 1 Tab under the tongue as needed for Pain, Chest. May repeat 3 times. If chest pain continues, call 911. 25 Tab 1 9 Active Wheat Dextrin (BENEFIBER) powderIndications:[employer] Take by mouth . 1 teaspoon [...] Tablet 3 3 02/26/20 24 Active Ipratropium [place] 0.03 % Nasal Solution (Atrovent)Indicatio ns:Rhinorrhea ADMINISTER 2 SPRAYS INTO EACH NOSTRIL 4 TIMES A DAY NEEDED FOR RHINITIS. FOR RUNNY NOSE 90 mL 1 3 Active Ipratropium-Albuter ol 20-100 MCG/ACT Inhalation Aerosol Solution (Combivent Respimat)Indication s:COPD, group B, by GOLD 2017 classification ([facility]) INHALE 1 PUFF BY MOUTH IN THE MORNING, 1 PUFF AT NOON, 1 PUFF IN THE EVENING, AND 1 PUFF BEFORE BEDTIME 12 g 1 3 04/15/20 24 Active Apixaban 5 MG Oral Tablet (Eliquis)Indication s:Cerebrovascular disease, arteriosclerotic, post-stroke,Paroxys mal atrial fibrillation ([facility]) TAKE ONE TABLET BY MOUTH TWICE A [...] A1c goal of less than 8.0% ([facility]) USE TO TEST BLOOD SUGAR [...] 4 10/18/19 25 Active OneTouch Delica Plus [id number] s:Type 2 diabetes mellitus with hemoglobin A1c [...] mRNA, LNP-s, No Pre serve, 2-Dose Series ([employer]) 03/25/2021,08/27/2020,08/06/2020 COVID-19, MRNA-LNP, 23-24, P F, 30 MCG/0.3 mL, 12 YRS AND ABOVE, IM ([employer]) 06/14/2023 Covid-19, Mrna, Lnp-s, Pf, [...] Miscellaneous Notes * Telephone Encounter - Surekha Adkins, [facility] - 11/01/2023 8:50 AM EDTSigned Prescriptions: Disp Refills Amitriptyline HCl 10 MG Oral Tablet (Elavi*100 Ta*1 Sig: Take 1 Tablet by mouth at bedtime.Authorizing Provider: DAYSI PHAMOrdering User: SUREKHA ADKINS documented in this encounter Plan of Treatment Upcoming Encounters Date Type Department Care Team (Late st Contact Info) Description 12/13/2023 1:40 PM EDT Office Visit [address] [phone] Christin Welch PA-C [address] [place] [address] [place] [phone] 06/20/2024 1:40 PM EST Office [address] [place] [phone] Daysi Pham MD [address] [place] [address] [place] [phone] 08/29/2024 3:00 PM EDT Nurse Only Ancillary [address] [place] [phone] [place], Nurse Annual Wellness [address] [place] [address] [place] [phone] Health Maintenance Due Date Last Done Comments Alpha-1 Antitrypsin 1967 O2 ASSESSMENT COMPLETED IN PAST YEAR FOR COPD 1967 Sigmoidoscopy 1994 Fecal Occult Blood Test 11/06/2006 11/06/2005 DTaP,Tdap,and Td Vaccines (2 - Td or Tdap) 10/25/2017 10/26/2007 Colonoscopy 01/24/2019 01/24/2018, 05/12/2007, 08/11/2007, Additional history exists Colorectal Cancer Screening 01/24/2019 Zoster Vaccines (3 of 3) 03/10/2019 01/13/2019, 03/03 Cologuard 11/04/2020 11/04/2017 COVID-19 Vaccine (2022- season) 2023 06/14/2023, 04/28/2022, 03/25/2021, Additional history [...] type documented in this encounter Care Teams Automobile Drivers Relationship Specialty Start Date End Date Daysi Pham MD [address] [place] [address] [place] [phone] PCP - General Family Medicine 07/01/17 documented as of this encounter
--- OUTSIDE RECORDS SUMMARY | 2023-11-26 18:47 | External Medical Summary | Summary of Care ---
Author Name Unknown Organization [facility] Address [address] [place] [address] Phone [phone] Care Team Providers Care Vice President Commercial Bank Name Role Phone Daysi Pham MD Primary Care Provide r Reason for Visit * Reason Comments Medication Refill Encounter Details Date Type Department Care Team (Late st Contact Info) Description 10/30/2023 Refill Family Medicine [address] [phone] Daysi Pham MD [address] [place] [address] [place] [phone] Type 2 diabetes mellitus with hemoglobin A1c goal of less than 8.0% ([facility]) Allergies Active Allergy Reactions Criticality Noted Date Comments Amoxicillin Rash 11/19/2011 Levofloxacin Other (Please comment) 11/13/2013 Weakness, lightheadedness, nausea Niacin Er 01/30/2010 Burned throat. Prednisone 09/03/2012 Blood pressure went up. Bupropion Hcl 01/30/2010 documented as of this encounter (statuses as of 10/30/2023) Medications Medication Sig Dispensed Refills Start Date End Date Status VITAMIN B COMPLEX PO CAPSIndications:sup plementation Take by mouth 1 Capsule daily . Active CO Q 10 100 MG PO CAPSIndications:leg pain Take by mouth 100 mg daily . Active ASPIRIN 81 MG PO TABSIndications:[employer] Take 1 Tablet by mouth in the morning. Active oxygen GAS Use 2 L/min(Oxygen) as directed at bedtime. 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 Duonebs, 3 ml's every 6 hours as needed 1 Device 7 Active Multiple Vitamins-Minerals (MULTIVITAMIN WOMEN) TABSIndications:gen eral VirtualU Take by mouth 1 Tablet daily . Active nitroglycerin (NITROSTAT) 0.4 MG SUBLIndications:Chr onic coronary artery disease Place 1 Tab under the tongue as needed for Pain, Chest. May repeat 3 times. If chest pain continues, call 911. 25 Tab 1 9 Active Wheat Dextrin (BENEFIBER) powderIndications:g hi health Take by mouth . 1 teaspoon [...] goal of less than 8.0% ([facility]) Use once a day Dx: E11.9 [...] Tablet 3 3 02/26/20 24 Active Ipratropium [place]abella 0.03 % Nasal Solution (Atrovent)Indicatio ns:Rhinorrhea ADMINISTER 2 SPRAYS INTO EACH NOSTRIL 4 TIMES A DAY NEEDED FOR RHINITIS. FOR RUNNY NOSE 90 mL 1 3 Active Ipratropium-Albuter ol 20-100 MCG/ACT Inhalation Aerosol Solution (Combivent Respimat)Indication s:COPD, group B, by GOLD 2017 classification ([facility]) INHALE 1 PUFF BY MOUTH IN [...] s:Cerebrovascular disease, arteriosclerotic, post-stroke,Paroxys mal atrial fibrillation ([facility]) TAKE ONE TABLET BY MOUTH TWICE [...] goal of less than 8.0% ([facility]) USE TO TEST BLOOD SUGAR ONCE A DAY 100 Strip 3 4 Active Lisinopril 5 MG Oral Tablet (Prinivil)Indicatio ns:HTN, goal below 140/90 TAKE ONE TABLET BY MOUTH EVERY DAY 90 Tablet 3 4 08/12/19 25 Active Pregabalin 25 MG Oral Capsule (Lyrica)Indications :Type 2 diabetes, controlled, with neuropathy ([facility]) TAKE ONE CAPSULE BY MOUTH EVERY MORNING AND TAKE ONE CAPSULE BEFORE BEDTIME 60 Capsule 2 4 Active Atorvastatin Calcium 80 MG Oral Tablet (Lipitor)Indication s:Dyslipidemia, goal LDL below 100 TAKE ONE TABLET BY MOUTH EVERYday 100 Tablet 3 4 10/18/19 25 Active OneTouch Delica Plus [id number] s:Type 2 diabetes mellitus with hemoglobin A1c goal of less than 8.0% (HCC) USE TO TEST BLOOD SUGAR ONCE A DAY DIRECTED 100 Each 1 4 10/30/19 25 Active OneTouch Delica Plus [id number] s:Type 2 diabetes mellitus with hemoglobin A1c goal of less than 8.0% (HCC) USE TO TEST BLOOD SUGAR ONCE A DAY DIRECTED 100 Each 1 3 10/30/19 24 Discontinu ed(Refill) documented as of this encounter (statuses as of 10/30/2023) Active Problems Problem Noted Date Diagnosed Date [...] BP's in right arm, per Vascular study -2012 Dyslipidemia, goal LDL below 100 08/05/2010 Osteoarthrosis [...] as of this encounter (statuses as of 10/30/2023) Resolved Problems Problem Noted Date Diagnosed Date [...] as of this encounter (statuses as of 10/30/2023) Immunizations Name Administration Dates Next Due COVID-19 mRNA, LNP-s, No Pre serve, 2-Dose Series (Cint) 03/25/2021,08/27/2020,08/06/2020 COVID-19, MRNA-LNP, 23-24, P F, 30 MCG/0.3 mL, 12 YRS AND ABOVE, IM (O2 [employer]-ComirnatCrow[employer]) 06/14/2023 Covid-19, Mrna, Lnp-s, Pf, B ivalent, [...] encounter Miscellaneous Notes * Telephone Encounter - Stormy Gramajo [facility] - 10/30/2023 3:22 PM EDTSigned Prescriptions: Disp Refills OneTouch Delica Plus [id number] 100 Ea*1 Sig: USE TO TEST BLOOD SUGAR ONCE A DAY DIRECTEDAuthorizing Provider: DAYSI PHAM User: STORMY GRAMAJO documented in this encounter Plan of Treatment Upcoming Encounters Date Type Department Care Team (Late st Contact Info) Description 12/13/2023 1:40 PM EDT Office Visit [address] [place] [phone] Christin Welch PA-C [address] [place] [address] [place] [phone] 06/20/2024 1:40 PM EST Office Visit [address] [place] [phone] Daysi Pham MD [address] [place] [address] [place] [address] 08/29/2024 3:00 PM EDT Nurse Only Ancillary [address] [place] [address] Zabrina, Nurse Annual Wellness [address] [place] [address] [place] [phone] Health Maintenance Due Date Last Done Comments Alpha-1 Antitrypsin 1967 O2 ASSESSMENT COMPLETED IN PAST YEAR FOR COPD 1967 Sigmoidoscopy 1994 Fecal Occult Blood Test 11/06/2006 11/06/2005 DTaP,Tdap,and Td Vaccines (2 - Td or Tdap) 10/25/2017 10/26/2007 Colonoscopy 01/24/2019 01/24/2018, 09/01, 08/11/2007, Additional history exists Colorectal Cancer Screening 01/24/2019 Zoster Vaccines (3 of 3) 03/10/2019 01/13/2019, 03/03 Cologuard 11/04/2020 11/04/2017 COVID-19 Vaccine ( - season) 2023 06/14/2023, 04/28/2022, 03/25/2021, Additional history [...] as of this encounter Visit Diagnoses Diagnosis Type 2 diabetes mellitus with hemoglobin A1c goal of less than 8.0% (HCC) documented in this encounter Care Teams Vice President Commercial [employer] Relationship Specialty Start Date End Date Daysi Pham MD [address] [place] [address] [place] [phone] PCP - General Family Medicine 07/01/17 documented as of this encounter
--- OUTSIDE RECORDS SUMMARY | 2023-11-26 18:47 | External Medical Summary ---
Author Name Unknown Address Unknown Organization K01:[facility] [place] [address] [place] [address] Laboratory Report Ordering Provider Test Date Status DIANNA ACEVES 11/15/2023 13:44:42 Final Observation Date Value Abnormality Reference (Units ) Status LDL, (direct) 11/15/2023 13:44:42 54 <=129 (mg/dL) Final LDL Cholesterol Reference Ra nges (mg/dL):
<70 Target level for high risk ASCVD patient
<100 Optimal for general population
100-129 Near optimal for general population
130-159 Borderline high
160-189 High
>=190 Very high Performing Location [facility] - [address] [place] [address]
--- OUTSIDE RECORDS SUMMARY | 2023-11-26 18:47 | External Medical Summary | Summary of Care ---
Author Name Unknown Organization [facility] Address [address] [place] [address] Phone [phone] Care Team Providers Care Paper Cup Machine Tender Name Role Phone Daysi Pham MD Primary Care Provide r Reason for Visit * Reason Comments Medication Refill Encounter Details Date Type Department Care Team (Late st Contact Info) Description 09/29/2023 Refill Family Medicine [address] [phone] Daysi Pham MD [address] [place] [address] [place] [phone] Type 2 diabetes, controlled, with neuropathy (HCC) Allergies Active Allergy Reactions Criticality Noted Date Comments Amoxicillin Rash 11/19/2011 Levofloxacin Other (Please comment) 11/13/2013 Weakness, lightheadedness, nausea Niacin Er 01/30/2010 Burned throat. Prednisone 09/03/2012 Blood pressure went up. Bupropion Hcl 01/30/2010 documented as of this encounter (statuses as of 09/30/2023) Medications Medication Sig Dispensed Refills Start Date End Date Status VITAMIN B COMPLEX PO CAPSIndications:sup plementation Take by mouth 1 Capsule daily . Active CO Q 10 100 MG PO CAPSIndications:leg pain Take by mouth 100 mg daily . Active ASPIRIN 81 MG PO TABSIndications:[employer] Take 1 Tablet by mouth in the morning. Active oxygen GAS Use 2 L/min(Oxygen) as directed at bedtime. 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 Duonebs, 3 ml's every 6 hours as needed 1 Device 7 Active Multiple Vitamins-Minerals (MULTIVITAMIN WOMEN) TABSIndications:gen [employer] Take by mouth 1 Tablet daily . Active nitroglycerin (NITROSTAT) 0.4 MG SUBLIndications:Chr onic coronary artery disease Place 1 Tab under the tongue as needed for Pain, Chest. May repeat 3 times. If chest pain continues, call 911. 25 Tab 1 9 Active Wheat Dextrin (BENEFIBER) powderIndications:g nv health Take by mouth . 1 teaspoon [...] hemoglobin A1c goal of less than 8.0% ([facility]) Use once a day Dx: [...] Take by mouth. Active OneTouch Delica Plus [id number] s:Type 2 diabetes mellitus with hemoglobin A1c goal of less than 8.0% ([facility]) USE TO TEST BLOOD SUGAR ONCE A DAY DIRECTED 100 Each 1 3 10/29/19 24 Active Atorvastatin Calcium 80 MG Oral Tablet (Lipitor)Indication s:Dyslipidemia, goal LDL below 100 TAKE ONE TABLET BY MOUTH EVERYday 100 Tablet 3 3 10/26/19 24 Active Isosorbide Mononitrate ER 30 MG Oral Tablet Extended Release 24 Hour (Imdur)Indications: HTN, goal below 140/90 TAKE ONE TABLET BY MOUTH EVERY MORNING 90 Tablet 3 3 02/26/20 24 Active Ipratropium [place] 0.03 % Nasal Solution (Atrovent)Indicatio ns:Rhinorrhea ADMINISTER 2 SPRAYS INTO EACH NOSTRIL 4 TIMES A DAY NEEDED FOR RHINITIS. FOR RUNNY NOSE 90 mL 1 3 Active Ipratropium-Albuter ol 20-100 MCG/ACT Inhalation Aerosol Solution (Combivent Respimat)Indication s:COPD, group B, by GOLD 2017 classification ([facility]) INHALE 1 PUFF BY MOUTH [...] s:Cerebrovascular disease, arteriosclerotic, post-stroke,Paroxys mal atrial fibrillation (HCC) TAKE ONE TABLET BY [...] hemoglobin A1c goal of less than 8.0% ([facility]) USE TO TEST BLOOD SUGAR [...] BEFORE BEDTIME 60 Capsule 2 4 Active Pregabalin 25 MG Oral Capsule (Lyrica)Indications :Type 2 diabetes, controlled, with neuropathy (HCC) TAKE ONE CAPSULE BY MOUTH EVERY MORNING AND TAKE ONE CAPSULE BEFORE BEDTIME 60 Capsule 2 4 09/29/19 24 Discontinu ed(Refill) documented as of this encounter (statuses as of 09/30/2023) Active Problems Problem Noted Date Diagnosed Date [...] as of this encounter (statuses as of 09/30/2023) Resolved Problems Problem Noted Date Diagnosed Date [...] as of this encounter (statuses as of 09/30/2023) Immunizations Name Administration Dates Next Due COVID-19 mRNA, LNP-s, No Pre serve, 2-Dose Series (Asana) 03/25/2021,08/27/2020,08/06/2020 COVID-19, MRNA-LNP, 23-24, P F, 30 MCG/0.3 mL, 12 YRS AND ABOVE, IM ([employer]-Comirnat[employer]) 06/14/2023 Covid-19, Mrna, Lnp-s, Pf, B ivalent, [...] encounter Miscellaneous Notes * Telephone Encounter - Daysi Pham MD - 09/30/2023 12:51 PM EDT Signed Prescriptions: Disp Refills Pregabalin 25 MG Oral Capsule (Lyrica) 60 Cap*2 Sig: TAKE ONE CAPSULE BY MOUTH EVERY MORNING AND TAKE ONE CAPSULE BEFORE BEDTIME Authorizing Provider: DAYSI PHAM * Telephone Encounter - Corinna Stuart RP - 09/30/2023 10:45 AM EDT Pending Prescriptions: Disp Refills Pregabalin 25 MG Oral Capsule (Lyrica) 60 Cap*2 Sig: TAKE ONE CAPSULE BY MOUTH EVERY MORNING AND TAKE ONE CAPSULE BEFORE BEDTIME * Telephone Encounter - Corinna Stuart RPh - 09/30/2023 10:44 AM EDT I have reviewed the patients controlled substance dispensing history in the Prescription Drug Monitoring Program in compliance with the [facility] regulations before prescribing a controlled substance. PDMP checked on 09/30/2023. Pending Prescriptions: Disp Refills Pregabalin 25 MG Oral Capsule (Lyrica) 60 Cap*2 Sig: TAKE ONE CAPSULE BY MOUTH EVERY MORNING AND TAKE ONE CAPSULE BEFORE BEDTIME Last Visit: 06/14/2023 (in office), Visit date not found (telemedicine) Next Visit: 12/13/2023 Date medication was last filled: 09/02/2023 Date medication is due for refill: 09/24/2023 (mail order) Pharmacy: [facility] Is this request for a controlled substance? Yes and Urine Drug Screen Not completed Toxicology results: No results found. However, due to the size of the patient record, not all encounters were searched.Please check Results Review for a complete set of results. Please approve if appropriate. Thank you, Corinna Stuart [facility] Clinical Pharmacist [facility] ([facility]) (formerly Telepharmacy) 09/30/23 10:44 AM [phone] documented in this encounter Plan of Treatment Upcoming Encounters Date Type Department Care Team (Late st Contact Info) Description 12/13/2023 1:40 PM EDT Office Visit [address] [place] [phone] Christin Welch PA-C [address] [place] [address] [place] [phone] 06/20/2024 1:40 PM EST Office Visit [address] [place] [phone] Daysi Pham MD [address] [place] [address] [place] [address] 08/29/2024 3:00 PM EDT Nurse Only Ancillary [address] [place] [address] Zabrina, Nurse Annual Wellness [address] [place] [address] [place] [address] Health Maintenance Due Date Last Done Comments [...] 09/24/2021, Additional history exists Mammogram 11/19/2023 11/18/2022, 08/2022, 11/04/2022, Additional history [...] this encounter Visit Diagnoses Diagnosis Type 2 diabetes, controlled, with neuropathy (HCC) Type II or unspecified type diabetes mellitus with neurological manifestations, not stated as uncontrolled documented in this encounter Care Teams Paper Cup Machine Tender Relationship Specialty Start Date End Date Daysi Pham MD [address] [place] [address] [place] [address] PCP - General Family Medicine 07/01/17 documented as of this encounter
--- OUTSIDE RECORDS SUMMARY | 2023-11-26 18:47 | External Medical Summary | Summary of Care ---
Author Name Unknown Organization [facility] Address [address] [place] [address] Phone [phone] Care Team Providers Care Truck Driver Supervisor Name Role Phone Daysi Pham MD Primary Care Provide r Encounter Details Date Type Department Care Team (Late st Contact Info) Description 09/21/2023 Population Health External Data Unspecified Department Allergies Active Allergy Reactions Criticality Noted Date Comments Amoxicillin Rash 11/19/2011 Levofloxacin Other (Please comment) 11/13/2013 Weakness, lightheadedness, nausea Niacin Er 01/30/2010 Burned throat. Prednisone 09/03/2012 Blood pressure went up. Bupropion Hcl 01/30/2010 documented as of this encounter (statuses as of 09/22/2023) Medications Medication Sig Dispensed Refills Start Date [...] daily . Active nitroglycerin (NITROSTAT) 0.4 MG SUBLIndications:Worm Farmer lev coronary artery disease Place 1 Tab under the tongue as needed for Pain, Chest. May repeat 3 times. If chest pain continues, call 911. 25 Tab 1 01/31/2019 Active Wheat Dextrin (BENEFIBER) powderIndications:[employer] Take by mouth . 1 teaspoon daily [...] UT) Oral Capsule Take by mouth. Active GlokaliseTouch Delica Plus [id number] :Type 2 diabetes mellitus with hemoglobin A1c goal of less than 8.0% ([facility]) USE TO TEST BLOOD SUGAR ONCE A DAY DIRECTED 100 Each 1 10/29/2022 4 Active Atorvastatin Calcium 80 MG Oral Tablet (Lipitor)Indications :Dyslipidemia, goal LDL below 100 TAKE ONE TABLET BY MOUTH EVERYday 100 Tablet 3 09/29/2022 4 Active Isosorbide Mononitrate ER 30 MG Oral Tablet Extended Release 24 Hour (Imdur)Indications:H TN, goal below 140/90 TAKE ONE TABLET BY MOUTH EVERY MORNING 90 Tablet 3 02/26/2023 4 Active Ipratropium [place] 0.03 % Nasal Solution (Atrovent)Indication s:Rhinorrhea ADMINISTER 2 SPRAYS INTO EACH NOSTRIL 4 TIMES A DAY NEEDED FOR RHINITIS. FOR RUNNY NOSE 90 mL 1 03/15/2023 Active Ipratropium-Albutero l 20-100 MCG/ACT Inhalation Aerosol Solution (Combivent Respimat)Indications :COPD, group B, by GOLD 2017 classification ([facility]) INHALE 1 PUFF BY MOUTH IN THE MORNING, 1 PUFF AT NOON, 1 PUFF IN THE EVENING, AND 1 PUFF BEFORE BEDTIME 12 g 1 04/16/2023 4 Active Amitriptyline HCl 10 MG Oral Tablet (Elavil)Indications: Insomnia, unspecified type TAKE 1 TABLET BY MOUTH EVERYDAY AT BEDTIME 100 Tablet 1 05/26/2023 Active Apixaban 5 MG Oral Tablet (Eliquis)Indications :Cerebrovascular disease, arteriosclerotic, post-stroke,Paroxysm al atrial fibrillation ([facility]) TAKE ONE TABLET BY MOUTH TWICE A DAY 200 Tablet 1 06/14/2023 Active Esomeprazole Magnesium 40 MG Oral Capsule Delayed ReleaseIndications:G astroesophageal reflux disease without esophagitis Take 1 Capsule by mouth 2 times a day with morning and evening meals. 200 Capsule 1 06/14/2023 Active Empagliflozin 10 MG Oral Tablet (Jardiance) Take 1 Tablet by mouth in the morning. 06/14/2023 Active Atenolol 50 MG Oral Tablet (Tenormin)Indication s:Chronic coronary artery disease TAKE ONE TABLET BY MOUTH TWICE A DAY 200 Tablet 3 06/28/2023 Active Pregabalin 25 MG Oral Capsule (Lyrica)Indications: Type 2 diabetes, controlled, with neuropathy ([facility]) TAKE ONE CAPSULE BY MOUTH EVERY MORNING AND TAKE ONE CAPSULE BEFORE BEDTIME 60 Capsule 2 07/08/2023 Active OneTouch Verio In Vitro Strip (Glucose Blood)Indications:Ty pe 2 diabetes mellitus with hemoglobin A1c goal of less than 8.0% ([facility]) USE TO TEST BLOOD SUGAR ONCE A DAY 100 Strip 3 08/09/2023 Active Lisinopril 5 MG Oral Tablet (Prinivil)Indication s:HTN, goal below 140/90 TAKE ONE TABLET BY MOUTH EVERY DAY 90 Tablet 3 08/12/2023 5 Active documented as of this encounter (statuses as of 09/22/2023) Active Problems Problem Noted Date Diagnosed Date [...] as of this encounter (statuses as of 09/22/2023) Resolved Problems Problem Noted Date Diagnosed Date [...] as of this encounter (statuses as of 09/22/2023) Immunizations Name Administration Dates Next Due COVID-19 mRNA, LNP-s, No Pre serve, 2-Dose Series (Partnered) 03/25/2021,08/27/2020,08/06/2020 COVID-19, MRNA-LNP, 23-24, P F, 30 [...] Influenza, Trivalen t, Adjuvanted, 65+ yrs 01/10/2019 TDAP (age 11 and older)(Adacel) 10/26/2007 Varicella Zoster Vaccine (Adult) 03/15/2015 Zoster [...] 12/13/2023 1:40 PM EDT Office Visit [address] [place] [phone] Christin Welch PA-C [address] [place] [address] [place] [phone] 06/20/2024 1:40 PM EST Office Visit [address] [place] [phone] Daysi Pham MD [address] [place] [address] [place] [phone] 08/29/2024 3:00 PM EDT Nurse Only Ancillary [address] [place] [address] Zabrina, Nurse Annual Wellness [address] [place] [address] [place] [address] Health Maintenance Due Date Last Done Comments [...] filedocumented as of this encounter Care Teams Truck Driver Supervisor Relationship Specialty Start Date End Date Daysi Pham MD [address] [place] [address] [place] [phone] PCP - General Family Medicine 07/01/17 documented as of this encounter
--- OUTSIDE RECORDS SUMMARY | 2023-11-26 18:47 | External Medical Summary ---
Author Name Unknown Address Unknown Organization K01:[facility] [place] - [address] [facility] [address] Laboratory Report Ordering Provider Test Date Status DIANNA ACEVES 11/15/2023 13:44:42 Final Observation Date Value Abnormality Reference (Units ) Status HbA1C 11/15/2023 13:44:42 6.6 Above high normal 4. 0-5.6 (%) Final The use of HbA1c to monitor glycemic status is based on normal hemoglobin and HbA composition. This test should not be used in patients with abnormal hemoglobin that affects the half life of the red blood cell or the in vivo glycation rates. Glucose, estimated average 11/15/2023 13:44:42 143 Above high normal <126 (mg/dL) Zelalem zimmer Performing Location [facility] [place] - [address] [facility] [address]
--- OUTSIDE RECORDS SUMMARY | 2023-11-26 18:47 | External Medical Summary | Summary of Care ---
Author Name Unknown Organization [facility] Address [address] [place] [address] Phone [phone] Care Team Providers Care Carbonation Tester Name Role Phone Daysi Pham MD Primary Care Provide r Reason for Visit * Reason Onset Date Comments Appointment 11/18/2023 Nephrology Encounter Details Date Type Department Care Team (Late st Contact Info) Description 11/18/2023 Telephone Family Medicine [address] [phone] Daysi Pham MD [address] [place] [address] [place] [phone] Appointment (Nephrology ) Allergies [...] daily . Active ASPIRIN 81 MG PO TABSIndications:[employer] Take 1 Tablet by mouth in the morning. Active oxygen GAS Use 2 L/min(Oxygen) as directed at bedtime. Active Respiratory Therapy Supplies (NEBULIZER) DEVIIndications:COPD , moderate (HCC) Use as directed. Duonebs, 3 ml's every 6 hours as needed 1 Device 05/21/2016 Active Multiple Vitamins-Minerals (MULTIVITAMIN WOMEN) TABSIndications:FuturestateIT Take by mouth 1 Tablet daily . Active nitroglycerin (NITROSTAT) 0.4 MG SUBLIndications:Sequins Winder lev coronary artery disease Place 1 Tab under the tongue as needed for Pain, Chest. May repeat 3 times. If chest pain continues, call 911. 96 Tab 1 01/31/2019 Active Wheat Dextrin (BENEFIBER) powderIndications:[place] [employer] Take by mouth . 1 teaspoon daily [...] of less than 8.0% ([facility]) Use once a day Dx: E11.9 [...] 90 Tablet 3 02/26/2023 4 Active Ipratropium [place] 0.03 % Nasal Solution (Atrovent)Indication s:Rhinorrhea ADMINISTER 2 SPRAYS INTO EACH NOSTRIL 4 TIMES A DAY NEEDED FOR RHINITIS. FOR RUNNY NOSE 90 mL 1 03/15/2023 Active Ipratropium-Albutero l 20-100 MCG/ACT Inhalation Aerosol Solution (Combivent Respimat)Indications :COPD, group B, by GOLD 2017 classification ([facility]) INHALE 1 PUFF BY MOUTH IN THE MORNING, 1 PUFF AT NOON, 1 PUFF IN THE EVENING, AND 1 PUFF BEFORE BEDTIME 12 g 1 04/16/2023 4 Active Apixaban 5 MG Oral Tablet (Eliquis)Indications :Cerebrovascular disease, arteriosclerotic, post-stroke,Paroxysm al atrial fibrillation ([facility]) TAKE ONE TABLET BY MOUTH TWICE [...] of less than 8.0% ([facility]) USE TO TEST BLOOD SUGAR ONCE A DAY 100 Strip 3 08/09/2023 Active Lisinopril 5 MG Oral Tablet (Prinivil)Indication s:HTN, goal below 140/90 TAKE ONE TABLET BY MOUTH EVERY DAY 90 Tablet 3 08/12/2023 5 Active Pregabalin 25 MG Oral Capsule (Lyrica)Indications: Type 2 diabetes, controlled, with neuropathy ([facility]) TAKE ONE CAPSULE BY MOUTH EVERY MORNING AND TAKE ONE CAPSULE BEFORE BEDTIME 60 Capsule 2 09/30/2023 Active Atorvastatin Calcium 80 MG Oral Tablet (Lipitor)Indications :Dyslipidemia, goal LDL below 100 TAKE ONE TABLET BY MOUTH EVERYday 100 Tablet 3 10/18/2023 5 Active OneTouch Delica Plus [id number] :Type 2 diabetes mellitus with hemoglobin A1c goal of less than 8.0% ([facility]) USE TO TEST BLOOD SUGAR ONCE A DAY DIRECTED 100 Each 1 10/30/2023 5 Active Amitriptyline HCl 10 MG Oral Tablet (Elavil)Indications: Insomnia, unspecified type Take 1 Tablet by mouth at bedtime. 100 Tablet 1 11/01/2023 Active Empagliflozin 10 MG Oral Tablet (Jardiance)Indicatio ns:Type 2 diabetes mellitus with hemoglobin A1c goal of less than 8.0% ([facility]) Take 1 Tablet by mouth in [...] mRNA, LNP-s, No Pre serve, 2-Dose Series (ConteXtream) 03/25/2021,08/27/2020,08/06/2020 COVID-19, MRNA-LNP, 23-24, P F, 30 MCG/0.3 mL, 12 YRS AND ABOVE, IM ([facility] 06/14/2023 Covid-19, Mrna, Lnp-s, Pf, B ivalent, 30 Mcg, IM, 12 yrs and above ([employer]) 04/28/2022 H1N1 2009 Influenza, IM 05/15/2009 Pneumococcal [...] Description 12/20/2023 1:40 PM EDT Office Visit [address] [place] [phone] Christin Welch PA-C [address] [place] [address] [place] [phone] 06/20/2024 1:40 PM EST Office Visit [address] [place] [phone] Daysi Pham MD [address] [place] [address] [place] [address] 08/29/2024 3:00 PM EDT Nurse Only Ancillary Margarita Santiago[address] [place] [address] [place], Nurse Annual Wellness [address] [place] [address] [place] [phone] Health Maintenance Due Date Last Done Comments [...] filedocumented as of this encounter Care Teams Carbonation Tester Relationship Specialty Start Date End Date Daysi Pham MD [address] [place] [address] [place] [phone] PCP - General Family Medicine 07/01/17 documented as of this encounter
--- OUTSIDE RECORDS SUMMARY | 2023-11-26 18:47 | External Medical Summary | Summary of Care ---
Author Name Unknown Organization [facility] Address [address] [place] [address] Phone [phone] Care Team Providers Care Marriage And Family Therapist Name Role Phone Daysi Pham MD Primary Care Provide r Encounter Details Date Type Department Care Team (Late st Contact Info) Description 10/25/2023 Population Health External Data Unspecified Department Allergies Active Allergy Reactions Criticality Noted Date Comments Amoxicillin Rash 11/19/2011 Levofloxacin Other (Please comment) 11/13/2013 Weakness, lightheadedness, nausea Niacin Er 01/30/2010 Burned throat. Prednisone 09/03/2012 Blood pressure went up. Bupropion Hcl 01/30/2010 documented as of this encounter (statuses as of 10/26/2023) Medications Medication Sig Dispensed Refills Start Date [...] daily . Active nitroglycerin (NITROSTAT) 0.4 MG SUBLIndications:Floor Director lev coronary artery disease Place 1 Tab under the tongue as needed for Pain, Chest. May repeat 3 times. If chest pain continues, call 911. 25 Tab 1 01/31/2019 Active Wheat Dextrin (BENEFIBER) powderIndications:Qifang Take by mouth . 1 teaspoon daily [...] hemoglobin A1c goal of less than 8.0% ([facility]) Use once a day Dx: E11.9 1 Kit 08/08/2020 Active Fluocinolone Acetonide 0.01 % Otic OilIndications:for ear Administer into ears once a week . On Saturdays Active Systane Preservative Free 0.4-0.3 % Ophthalmic Solution (Polyethyl Glyc-Propyl Glyc PF)Indications:dry eyes Instill into eye 1 Drop daily as needed for Other. Active Vitamin D 125 MCG (5000 UT) Oral Capsule Take by mouth. Active YODILTouch Delica Plus [id number] :Type 2 diabetes mellitus with hemoglobin A1c goal of less than 8.0% ([facility]) USE TO TEST BLOOD SUGAR ONCE A DAY DIRECTED 100 Each 1 10/29/2022 4 Active Isosorbide Mononitrate ER 30 MG Oral Tablet Extended Release 24 Hour (Imdur)Indications:H [place], goal below 140/90 TAKE ONE TABLET BY MOUTH EVERY MORNING 90 Tablet 3 02/26/2023 4 Active Ipratropium [place] 0.03 % Nasal Solution (Atrovent)Indication s:Rhinorrhea ADMINISTER 2 SPRAYS INTO EACH NOSTRIL 4 TIMES A DAY NEEDED FOR RHINITIS. FOR RUNNY NOSE 90 mL 1 03/15/2023 Active Ipratropium-Albutero l 20-100 MCG/ACT Inhalation Aerosol Solution (Combivent Respimat)Indications :COPD, group B, by GOLD 2017 classification ([facility]) INHALE 1 PUFF BY MOUTH IN THE MORNING, 1 PUFF AT NOON, 1 PUFF IN THE EVENING, AND 1 PUFF BEFORE BEDTIME 12 g 1 04/16/2023 Active Amitriptyline HCl 10 MG Oral Tablet (Elavil)Indications: Insomnia, unspecified type TAKE 1 TABLET BY MOUTH EVERYDAY AT BEDTIME 100 Tablet 1 05/26/2023 Active Apixaban 5 MG Oral Tablet (Eliquis)Indications :Cerebrovascular disease, arteriosclerotic, post-stroke,Paroxysm al atrial fibrillation ([facility]) TAKE ONE TABLET BY MOUTH TWICE A [...] hemoglobin A1c goal of less than 8.0% ([facility]) USE TO TEST BLOOD SUGAR ONCE A DAY 100 Strip 3 08/09/2023 Active Lisinopril 5 MG Oral Tablet (Prinivil)Indication s:HTN, goal below 140/90 TAKE ONE TABLET BY MOUTH EVERY DAY 90 Tablet 3 08/12/2023 5 Active Pregabalin 25 MG Oral Capsule (Lyrica)Indications: Type 2 diabetes, controlled, with neuropathy ([facility]) TAKE ONE CAPSULE BY MOUTH EVERY MORNING AND TAKE ONE CAPSULE BEFORE BEDTIME 60 Capsule 2 09/30/2023 Active Atorvastatin Calcium 80 MG Oral Tablet (Lipitor)Indications :Dyslipidemia, goal LDL below 100 TAKE ONE TABLET BY MOUTH EVERYday 100 Tablet 3 10/18/2023 5 Active documented as of this encounter (statuses as of 10/26/2023) Active Problems Problem Noted Date Diagnosed Date [...] as of this encounter (statuses as of 10/26/2023) Resolved Problems Problem Noted Date Diagnosed Date [...] as of this encounter (statuses as of 10/26/2023) Immunizations Name Administration Dates Next Due COVID-19 mRNA, LNP-s, No Pre serve, 2-Dose Series ([employer]) 03/25/2021,08/27/2020,08/06/2020 COVID-19, MRNA-LNP, 23-24, P F, 30 [...] Description 12/13/2023 1:40 PM EDT Office Visit [address] [place] [phone] Christin Welch PA-C [address] [place] [address] [place] [phone] 06/20/2024 1:40 PM EST Office Visit [address] [place] [phone] Daysi Pham MD [address] [place] [address] [place] [phone] 08/29/2024 3:00 PM EDT Nurse Only Ancillary [address] [place] [address] [place], Nurse Annual Wellness [address] [place] [address] [place] [phone] Health Maintenance Due Date Last Done Comments [...] filedocumented as of this encounter Care Teams Marriage And Family Therapist Relationship Specialty Start Date End Date Daysi Pham MD [address] [place] [address] [place] [phone] PCP - General Family Medicine 07/01/17 documented as of this encounter
--- OUTSIDE RECORDS SUMMARY | 2023-11-26 18:47 | External Medical Summary | Summary of Care ---
Author Name Unknown Organization [facility] Address [address] [place] [address] Phone [phone] Care Team Providers Care Ob/Gyn Physician Name Role Phone Daysi Pham MD Primary Care Provide r Reason for Visit * Reason Comments Outpatient Testing Encounter Details Date Type Department Care Team (Late st Contact Info) Description 11/15/2023 1:50 PM EDT Laboratory Laboratory [address] [place] [phone] [facility] [address] [place] [address] [employer] Other*[id number]; Type 2 diabetes, controlled, with neuropathy (HCC); Dyslipidemia, goal LDL below 100 Allergies Active Allergy Reactions Criticality Noted Date Comments Amoxicillin Rash 11/19/2011 Levofloxacin Other (Please comment) 11/13/2013 Weakness, lightheadedness, nausea Niacin Er 01/30/2010 Burned throat. Prednisone 09/03/2012 Blood pressure went up. Bupropion Hcl 01/30/2010 documented as of this encounter (statuses as of 11/15/2023) Medications Medication Sig Dispensed Refills Start Date End Date Status VITAMIN B COMPLEX PO CAPSIndications:supp lementation Take by mouth 1 Capsule daily . Active CO Q 10 100 MG PO CAPSIndications:leg pain Take by mouth 100 mg daily . Active ASPIRIN 81 MG PO TABSIndications:Wolonge Take 1 Tablet by mouth in the morning. Active oxygen GAS Use 2 L/min(Oxygen) as directed at bedtime. Active Respiratory Therapy Supplies (NEBULIZER) DEVIIndications:COPD , moderate (HCC) Use as directed. Duonebs, 3 ml's every 6 hours as needed 1 Device 05/21/2016 Active Multiple Vitamins-Minerals (MULTIVITAMIN WOMEN) TABSIndications:[employer] Take by mouth 1 Tablet daily . Active nitroglycerin (NITROSTAT) 0.4 MG SUBLIndications:Hvac Service Tech lev coronary artery disease Place 1 Tab under the tongue as needed for Pain, Chest. May repeat 3 times. If chest pain continues, call 911. 25 Tab 1 01/31/2019 Active Wheat Dextrin (BENEFIBER) powderIndications:Keoghs Take by mouth . 1 teaspoon daily [...] hemoglobin A1c goal of less than 8.0% ([facility]) Use once a day Dx: E11.9 1 [...] 90 Tablet 3 02/26/2023 4 Active Ipratropium [place] 0.03 % Nasal Solution (Atrovent)Indication s:Rhinorrhea ADMINISTER 2 SPRAYS INTO EACH NOSTRIL 4 TIMES A DAY NEEDED FOR RHINITIS. FOR RUNNY NOSE 90 mL 1 03/15/2023 Active Ipratropium-Albutero l 20-100 MCG/ACT Inhalation Aerosol Solution (Combivent Respimat)Indications :COPD, group B, by GOLD 2017 classification ([facility]) INHALE 1 PUFF BY MOUTH IN THE MORNING, 1 PUFF AT NOON, 1 PUFF IN THE EVENING, AND 1 PUFF BEFORE BEDTIME 12 g 1 04/16/2023 4 Active Apixaban 5 MG Oral Tablet (Eliquis)Indications :Cerebrovascular disease, arteriosclerotic, post-stroke,Paroxysm al atrial fibrillation ([facility]) TAKE ONE TABLET BY MOUTH TWICE A [...] hemoglobin A1c goal of less than 8.0% ([facility]) USE TO TEST BLOOD SUGAR ONCE A DAY 100 Strip 3 08/09/2023 Active Lisinopril 5 MG Oral Tablet (Prinivil)Indication s:HTN, goal below 140/90 TAKE ONE TABLET BY MOUTH EVERY DAY 90 Tablet 3 08/12/2023 5 Active Pregabalin 25 MG Oral Capsule (Lyrica)Indications: Type 2 diabetes, controlled, with neuropathy ([facility]) TAKE ONE CAPSULE BY MOUTH EVERY MORNING AND TAKE ONE CAPSULE BEFORE BEDTIME 60 Capsule 2 09/30/2023 Active Atorvastatin Calcium 80 MG Oral Tablet (Lipitor)Indications :Dyslipidemia, goal LDL below 100 TAKE ONE TABLET BY MOUTH EVERYday 100 Tablet 3 10/18/2023 5 Active OneTouch Delica Plus [id number] :Type 2 diabetes mellitus with hemoglobin A1c goal of less than 8.0% ([facility]) USE TO TEST BLOOD SUGAR ONCE A DAY DIRECTED 100 Each 1 10/30/2023 5 Active Amitriptyline HCl 10 MG Oral Tablet (Elavil)Indications: Insomnia, unspecified type Take 1 Tablet by mouth at bedtime. 100 Tablet 1 11/01/2023 Active Empagliflozin 10 MG Oral Tablet (Jardiance)Indicatio ns:Type 2 diabetes mellitus with hemoglobin A1c goal of less than 8.0% ([facility]) Take 1 Tablet by mouth in the morning. 90 Tablet 3 11/02/2023 Active documented as of this encounter (statuses as of 11/15/2023) Active Problems Problem Noted Date Diagnosed Date [...] as of this encounter (statuses as of 11/15/2023) Resolved Problems Problem Noted Date Diagnosed Date [...] as of this encounter (statuses as of 11/15/2023) Immunizations Name Administration Dates Next Due COVID-19 mRNA, LNP-s, No Pre serve, 2-Dose Series ([employer]) 03/25/2021,08/27/2020,08/06/2020 COVID-19, MRNA-LNP, 23-24, P F, 30 MCG/0.3 mL, 12 YRS AND ABOVE, IM ([facility]) 06/14/2023 Covid-19, Mrna, Lnp-s, Pf, B ivalent, 30 Mcg, IM, 12 yrs and above ([employer]) 04/28/2022 H1N1 2009 Influenza, IM 05/15/2009 Pneumococcal [...] Description 12/13/2023 1:40 PM EDT Office Visit [address] [phone] Christin Welch PA-C [address] [place] [address] [place] [phone] 06/20/2024 1:40 PM EST Office Visit [address] [place] [phone] Daysi Pham MD [address] [place] [address] [place] [address] 08/29/2024 3:00 PM EDT Nurse Only Ancillary [address] [place] [address] [place], Nurse Annual Wellness [address] [place] [address] [place] [phone] Pending Results Name Type Priority Associated Diagnoses Date /Time MYCODE SUBSEQUENT ADULT Lab Routine [employer] Other*[id number] 11/15/2023 1:44 PM EDT HEMOGLOBIN A1C Lab Routine Type 2 diabetes, controlled, with neuropathy (HCC) 11/15/2023 1:44 PM EDT COMPREHENSIVE METABOLIC PANEL Lab Routine Type 2 diabetes, controlled, with neuropathy (HCC) Dyslipidemia, goal LDL below 100 11/15/2023 1:44 PM EDT LIPID PANEL WITH DIRECT LDL IF TG IS HIGH Lab Routine Dyslipidemia, goal LDL below 100 11/15/2023 1:44 PM EDT MYCODE SST1 Lab Routine [employer] Other*[id number] 11/15/2023 1:44 PM EDT MYCODE SST2 Lab Routine [employer] Other*[id number] 11/15/2023 1:44 PM EDT Health Maintenance Due Date Last [...] 11/10/2023 05/12/2023, 08/01, 09/24/2021, Additional history exists *CXR OR CT FOR COPD EVER 11/14/2023 Mammogram 11/19/2023 11/18/2022, 07/08/2022, 11/04/2022, Additional history exists Influenza Vaccine (FLU [...] as of this encounter Visit Diagnoses Diagnosis [employer] Other*[id number] Type 2 diabetes, controlled, with neuropathy (HCC) Type II or unspecified type diabetes mellitus with neurological manifestations, not stated as uncontrolled Dyslipidemia, goal LDL below 100 Other and unspecified hyperlipidemia documented in this encounter Care Teams Ob/Gyn Physician Relationship Specialty Start Date End Date Daysi Pham MD [address] [place] [address] [place] [phone] PCP - General Family Medicine 07/01/17 documented as of this encounter
--- OUTSIDE RECORDS SUMMARY | 2023-11-26 18:47 | External Medical Summary ---
Author Name Unknown Address Unknown Organization K01:[facility] - [address] [facility] [address] Laboratory Report Ordering Provider Test Date Status DIANNA ACEVES 11/15/2023 13:44:42 Final Normal: <30 mg/g creatinine< br/>High: 30-300 mg/g creatinine
Very High: >300 mg/g creatinine
Nephrotic: >2200 mg/g creatinine Observation Date Value Abnormality Reference (Units ) Status Albumin, Urine 11/15/2023 13:44:42 59.91 (mg/dL) Final Creatinine, Urine 11/15/2023 13:44:42 108 (mg/dL) Final Albumin/Creatinine [Mass Ratio] in Urine 11/15/2023 13:44:42 555 Above high normal <30 (mg/g Creat) Final Performing Location [facility] - [address] [facility] [address]
--- OUTSIDE RECORDS SUMMARY | 2023-11-26 18:47 | External Medical Summary ---
Author Name Unknown Address Unknown Organization K01:[facility] [place] [address] [facility] [address] Laboratory Report Ordering Provider Test Date Status DIANNA ACEVES 11/15/2023 13:44:42 Final Observation Date Value Abnormality Reference (Units ) Status Triglyceride 11/15/2023 13:44:42 287 Above high normal <=174 (mg/dL) Final Triglyceride Reference Range s (mg/dL):
<150 Acceptable
150-174 Borderline high
175-499 High
>=500 Very high Cholesterol 11/15/2023 13:44:42 138 <200 (mg /dL) Final Total Cholesterol Reference Ranges (mg/dL):
<200 Desirable
200-239 Borderline high
>=240 High HDL 11/15/2023 13:44:42 38 Below low normal >49 (mg/dL) Final HDL Cholesterol Reference Ra nges (mg/dL):
>=60 High (Desirable)
<50 Low (Undesirable) For Females
<40 Low (Undesirable) For Males NON-HDL CHOLESTEROL 11/15/2023 13:44:42 100 <=159 (mg/dL) Final Non-HDL Cholesterol Referenc e Range (mg/dL):
<100 Target level for high risk ASCVD patient
<130 Optimal for general population
130-159 Near optimal for general population
160-189 Borderline High
190-219 High
>=220 Very High Performing Location [facility] - [address] [place] [address]
--- OUTSIDE RECORDS SUMMARY | 2023-11-26 18:47 | External Medical Summary | Summary of Care ---
Author Name Unknown Organization [facility] Address [address] [place] [address] Phone [phone] Care Team Providers Care Direct Marketing Manager Name Role Phone Daysi Pham MD Primary Care Provide r Reason for Referral * Medication Prior Authorization - Pending Review Specialty Diagnoses / Procedures Referred By Contac t Referred To Contact Diagnoses Insomnia, unspecified type Surekha Adkins, [facility] [place] [address] Referral ID Status Reason Start Date Expiration Date V isits Requested Visits Authorized [id number] Pending Review [id number] 999 Reason for Visit * Reason Onset Date Comments Medication Refill 10/30/2023 Encounter Details Date Type Department Care Team (Late st Contact Info) Description 10/30/[address] [place] [phone] Daysi Pham MD [address] [place] [address] [place] [address] Insomnia, unspecified type Allergies Active Allergy Reactions [...] daily . Active ASPIRIN 81 MG PO TABSIndications:E-Sign Take 1 Tablet by mouth in the morning. Active oxygen GAS Use 2 L/min(Oxygen) as directed at bedtime. Active Respiratory Therapy Supplies (NEBULIZER) DEVIIndications:ELEMENTARY MATH TUTOR D, moderate (HCC) Use as directed. Duonebs, 3 ml's every 6 hours as needed 1 Device 7 Active Multiple Vitamins-Minerals (MULTIVITAMIN WOMEN) TABSIndications:[employer] Take by mouth 1 Tablet daily . Active nitroglycerin (NITROSTAT) 0.4 MG SUBLIndications:Chr onic coronary artery disease Place 1 Tab under the tongue as needed for Pain, Chest. May repeat 3 times. If chest pain continues, call 911. 25 Tab 1 9 Active Wheat Dextrin (BENEFIBER) powderIndications:Vivo Take by mouth . 1 teaspoon daily [...] Tablet 3 3 02/26/20 24 Active Ipratropium [place] 0.03 % Nasal Solution (Atrovent)Indicatio ns:Rhinorrhea ADMINISTER 2 SPRAYS INTO EACH NOSTRIL 4 TIMES A DAY NEEDED FOR RHINITIS. FOR RUNNY NOSE 90 mL 1 3 Active Ipratropium-Albuter ol 20-100 MCG/ACT Inhalation Aerosol Solution (Combivent Respimat)Indication s:COPD, group B, by GOLD 2017 classification ([facility]) INHALE 1 PUFF BY MOUTH IN THE MORNING, 1 PUFF AT NOON, 1 PUFF IN THE EVENING, AND 1 PUFF BEFORE BEDTIME 12 g 1 3 04/15/20 24 Active Apixaban 5 MG Oral Tablet (Eliquis)Indication s:Cerebrovascular disease, arteriosclerotic, post-stroke,Paroxys mal atrial fibrillation ([facility]) TAKE ONE TABLET BY MOUTH [...] hemoglobin A1c goal of less than 8.0% ([facility]) USE TO TEST BLOOD SUGAR [...] 4 10/18/19 25 Active OneTouch Delica Plus [id number] s:Type 2 diabetes mellitus with hemoglobin A1c [...] mRNA, LNP-s, No Pre serve, 2-Dose Series ([employer]) 03/25/2021,08/27/2020,08/06/2020 COVID-19, MRNA-LNP, 23-24, P F, 30 MCG/0.3 mL, 12 YRS AND ABOVE, IM ([facility] 06/14/2023 Covid-19, Mrna, Lnp-s, Pf, B [...] Notes * Telephone Encounter - Surekha Adkins, [facility] - 11/01/2023 8:50 AM EDTSigned Prescriptions: Disp Refills Amitriptyline HCl 10 MG Oral Tablet (Elavi*100 Ta*1 Sig: Take 1 Tablet by mouth at bedtime.Authorizing Provider: DAYSI PHAMOrdering User: SUREKHA ADKINS documented in this encounter Plan of Treatment Upcoming Encounters Date Type Department Care Team (Late st Contact Info) Description 12/13/2023 1:40 PM EDT Office Visit [address] [phone] Christin Welch PA-C [address] [place] [address] [place] [phone] 06/20/2024 1:40 PM EST Office Visit [address] [place] [phone] Daysi Pham MD [address] [place] [address] [place] [phone] 08/29/2024 3:00 PM EDT Nurse Only Ancillary [address] [place] [address] [place], Nurse Annual Wellness [address] [place] [address] [place] [address] Health Maintenance Due Date Last Done Comments [...] type documented in this encounter Care Teams Direct Marketing Manager Relationship Specialty Start Date End Date Daysi Pham MD [address] [place] [address] [place] [phone] PCP - General Family Medicine 07/01/17 documented as of this encounter
--- OUTSIDE RECORDS SUMMARY | 2023-11-26 18:47 | External Medical Summary ---
Author Name Unknown Address Unknown Organization [id number]:[facility] [place] [address] [facility] [place] [address] Laboratory Report Ordering Provider Test Date Status CONCHISCURTPETEDIANNA 11/15/2023 13:44:42 Final Observation Date Value Abnormality Reference (Units ) Status BUN 11/15/2023 13:44:42 21 Above high normal 6-20 (mg/dL) Final Creatinine 11/15/2023 13:44:42 1.2 Above high normal 0.5-1.0 (mg/dL) Final Glomerular filtration rate/1.73 sq M.predicted [Volume Rate/Area] in Serum, Plasma or Blood by Creatinine-based formula (CKD-EPI) 11/15/2023 13:44:42 46 Below low normal >=60 (mL/min) Final eGFR is calculated based on the CKD-EPI 2020 equation Sodium 11/15/2023 13:44:42 139 135-146 (m mol/L) Final Potassium 11/15/2023 13:44:42 5.6 Above high normal 3. 5-5.1 (mmol/L) Final Cl 11/15/2023 13:44:42 96 Below low normal 98- 107 (mmol/L) Final CO2 11/15/2023 13:44:42 31 22-32 (mmo l/L) Final Anion gap 11/15/2023 13:44:42 12 7-15 (mmol /L) Final Glucose 11/15/2023 13:44:42 137 Above high normal 70 -120 (mg/dL) Final Albumin 11/15/2023 13:44:42 4.0 3.8-5.0 (g /dL) Final AST (Aspartate aminotransferase) 11/15/2023 13:44:42 27 10-35 (U/L) Fin al Alk Phos 11/15/2023 13:44:42 79 35-130 (U/ L) Final Bilirubin, Total 11/15/2023 13:44:42 0.4 <=1 .2 (mg/dL) Final Calcium 11/15/2023 13:44:42 9.7 8.4-10.2 ( mg/dL) Final Protein 11/15/2023 13:44:42 6.4 6.0-8.3 (g /dL) Final ALT (Alanine aminotransferase) 11/15/2023 13:44:42 23 10-35 (U/L) Zelalem zimmer Performing Location [facility] – [place] - [address] [facility] [id number]
--- OUTSIDE RECORDS SUMMARY | 2023-11-26 18:48 | External Medical Summary | Summary of Care ---
Author Name Unknown Organization [facility] Address [address] [place] [address] Phone [phone] Care Team Providers Care Manager Channel Name Role Phone Daysi Pham MD Primary Care Provide r Reason for Visit * Reason Comments Adult Annual Wellness Visit, Subsequent Visit Encounter Details Date Type Department Care Team (Late st Contact Info) Description 08/27/2023 3:00 PM EDT Nurse Only Ancillary [address] [place] [id number] Nurse Zabrina [address] [place] [id number] Adult Annual Wellness Visit, Subsequent Visit Allergies Active Allergy Reactions Criticality Noted Date Comments Amoxicillin Rash 11/19/2011 Levofloxacin Other (Please comment) 11/13/2013 Weakness, lightheadedness, nausea Niacin Er 01/30/2010 Burned throat. Prednisone 09/03/2012 Blood pressure went up. Bupropion Hcl 01/30/2010 documented as of this encounter (statuses as of 08/27/2023) Medications Medication Sig Dispensed Refills Start Date End Date Status VITAMIN B COMPLEX PO CAPSIndications:supp lementation Take by mouth 1 Capsule daily . 0 Active CO Q 10 100 MG PO CAPSIndications:leg pain Take by mouth 100 mg daily . 0 Active ASPIRIN 81 MG PO TABSIndications:Etherstack Take 1 Tablet by mouth in the morning. 0 Active oxygen GAS Use 2 L/min(Oxygen) as directed at bedtime. 0 Active Respiratory Therapy Supplies (NEBULIZER) DEVIIndications:COPD , moderate (HCC) Use as directed. Duonebs, 3 ml's every 6 hours as needed 1 Device 0 05/21/2016 Active Multiple Vitamins-Minerals (MULTIVITAMIN WOMEN) TABSIndications:[place] Take by mouth 1 Tablet daily . 0 Active nitroglycerin (NITROSTAT) 0.4 MG SUBLIndications:Zone Super[employer] lev coronary artery disease Place 1 Tab under the tongue as needed for Pain, Chest. May repeat 3 times. If chest pain continues, call 911. 25 Tab 1 01/31/2019 Active Wheat Dextrin (BENEFIBER) powderIndications:Bitybean [employer]c Take by mouth . 1 teaspoon daily in beverage 0 Active Pomegranate 250 MG CAPSIndications:for circulation Take by mouth . Taking 400 mg daily 0 Active fexofenadine (ARGELIA) 180 MG TabletIndications:No n-seasonal [...] once a day Dx: E11.9 1 Kit 0 08/08/2020 Active Fluocinolone Acetonide 0.01 % Otic OilIndications:for ear Administer into ears once a week . On Saturdays 0 Active Systane Preservative Free 0.4-0.3 % Ophthalmic Solution (Polyethyl Glyc-Propyl Glyc PF)Indications:dry eyes Instill into eye 1 Drop daily as needed for Other. 0 Active Vitamin D 125 MCG (5000 UT) Oral Capsule Take by mouth. 0 Active OneTouch Delica Plus [id number] :Type 2 diabetes mellitus with hemoglobin A1c [...] 90 Tablet 3 02/26/2023 4 Active Ipratropium [place] 0.03 % Nasal Solution (Atrovent)Indication s:Rhinorrhea ADMINISTER [...] 1 Tablet by mouth in the morning. 0 06/14/2023 Active Atenolol 50 MG Oral Tablet [...] as of this encounter (statuses as of 08/27/2023) Active Problems Problem Noted Date Diagnosed Date [...] as of this encounter (statuses as of 08/27/2023) Resolved Problems Problem Noted Date Diagnosed Date [...] as of this encounter (statuses as of 08/27/2023) Immunizations Name Administration Dates Next Due COVID-19 mRNA, LNP-s, No Pre serve, 2-Dose Series ([employer]) 03/25/2021,08/27/2020,08/06/2020 COVID-19, MRNA-LNP, 23-24, P F, 30 MCG/0.3 mL, 12 YRS AND ABOVE, IM [facility] 06/14/2023 Covid-19, Mrna, Lnp-s, Pf, B ivalent, [...] 0 12/23/1959 - 12/23/2018 Smokeless Tobacco: Never Tobacco Cessation:Counseling Given: Not Answered Comments:Started smoking age - 8 Alcohol Use [...] on file documented as of this encounter Last Filed Vital Signs Vital Sign Reading Time Taken Comments Blood Pressure 122/60 08/27/2023 3:13 PM EDT Pulse 64 08/27/2023 3:13 PM EDT Temperature 35.9 C (96.6 F) 08/27/2023 3:13 PM ED T Respiratory Rate - - Oxygen Saturation - - Inhaled Oxygen Concentration - - Weight 103.9 kg (229 lb) 08/27/2023 3:13 PM EDT Height 162.6 cm (5' 4") 08/27/2023 3:13 PM EDT Body Mass Index 39.31 08/27/2023 3:13 PM EDT documented in this encounter Patient Instructions * Patient Instructions* Evans Earl RN - 08/27/2023 3:18 PM EDT Patient Instructions - Fall Prevention (This education is for all patients over 65 regardless of symptoms) Remember to take your current medications as prescribed. In order to prevent falls, you are encouraged to: Exercise Utilize assistive/adaptive devices Avoid multifocal lenses when walking Avoid hazards in home Maintain a regular toileting schedule Any questions please contact our office. Preventing Falls in the Home (This education is for all patients over 65 regardless of symptoms) As you get older, falls are more likely. Thats because your reaction time slows. Your muscles and joints may also get stiffer, making them less flexible. Illness, medications, and vision changes can also affect your balance. A fall could leave you unable to live on your own. To make your home safer, follow these tips: Floors Put nonskid pads under area rugs Remove throw rugs Replace worn floor coverings Tack carpets firmly to each step on carpeted stairs. Put nonskid strips on the edges of uncarpeted stairs Keep floors and stairs free of clutter and cords Arrange furniture so there are clear pathways Clean up any spills right away Bathrooms Install grab bars in the tub or shower Apply nonskid strips or put a nonskid rubber mat in the tub or shower Sit on a bath chair to bathe Use bathmats with nonskid backing Lighting Keep a flashlight in each room Put a nightlight along the pathway between the bedroom and the bathroom [facility] Patient Education Copyright 2008 - 2010 [facility] except where otherwise noted Preventing Falls: Exercises to Improve Balance, Flexibility, Strength, and Staying Power (This education is for all patients over 65 regardless of symptoms) Certain types of exercises may help make you less likely to fall. Try the ones below. Or do other exercises that your healthcare provider suggests. Depending on your health, you may need to start slowly. Dont let that stop you. Even small amounts of exercise can help you. Be sure to talk to yourhealthcare provider before starting any exercise program. Improve Balance Many types of exercise can help improve balance. Joshua chi and yoga are good examples. Heres another one to try. You can do it anytime and almost anywhere. Stand next to a counter or solid support. Push yourself up onto your tiptoes. Hold for 5 seconds. If you start to lose your balance, hold on to the counter. Rest and repeat 5 times. Work up to holding for 20 to 30 seconds, if you can. Increase Flexibility Being more flexible makes it easier for you to move around safely. Try exercises like the seated hamstring stretch. Sit in a chair and put one foot on a stool. Straighten your leg and reach with both hands down either side of your leg. Reach as far down your leg as you can. Hold for about 20 seconds. Go back to the starting position. Then repeat 5 times. Switch legs. Build Strength Resistance exercises help build strength. You can do them without equipment. Or you can use weights, elastic bands, or special machines. One such exercise is called the biceps curl. You can hold a 1 pound weight or even a can of soup. Do this exercise at least 3 times a week. Strive for everyday. Sit up straight in a chair. Keep your elbow close to your body and your wrist straight. Bend your arm, moving your hand up to your shoulder. Then slowly lower your arm. Repeat 5 times. Switch to the other arm. Build Your Staying Power Aerobic exercises make your heart and lungs stronger so you can keep moving longer. Walking and swimming are two of the best types of exercises you can do. Using a stationary bike is great, too. Find an aerobic exercise that you enjoy. Start slowly and build up. Even 5 minutes is helpful. Aimfor a goal of 30 minutes, at least 3 times a week. You dont have to do 30 minutes in one session. Break it up and walk a little throughout the day. More Helpful Tips Start easy. Slowly work up to doing more. Talk with your healthcare provider about the best exercises for you. Call senior centers or health clubs about exercise programs. If needed, have a family member watch you walk every so often to check your stability. Exercise with a friend. Choose an activity you both enjoy. Try exercises that you can do anytime, anywhere. Here are two examples. Have someone with you when you first try these: Practice walking by placing one foot right in front of the other. Stand up and sit down 10 times. Repeat this throughout the day. [facility] Patient Education Copyright 2009 - 2010 [facility] except where otherwise noted. Preventing Falls: Moving Safely Using a Cane or Walker (This education is for all patients over 65 regardless of symptoms) Keep the cane away from your feet so you dont trip. A walking aid, such as a cane or walker, can help you stay more independent and avoid falls. Remember to keep your walking aid within easy reach when youre in a chair or in bed. And learn how to use it safely so you dont injure yourself. Using a Cane If you have a stronger side, hold the cane on that side. Get your balance. Move the cane and your weaker leg forward. Support your weight on both the cane and your weaker side. Step with your stronger leg. Start again from step 1. If youre using a folding walker, be sure you know how to lock it open. Check that its locked open before each use. Using a Walker Roll the walker (or lift it, if youre using one without wheels) forward about 12 inches. Step forward with your weaker leg first. Use the walker to help keep your balance. Bring your other foot forward to the center of the walker. Start again from step 1. Helpful Tips Check with your healthcare provider about the right walking aid to use. Ask about a walker with a seat attached. Check the tips of your cane or walker to make sure they have nonskid covers. Move slowly from room to room. Dont valladares. Sit down to get dressed. Use a cely pack or backpack to keep your hands free. Get help for jobs that mean climbing, even on a stepstool. [facility] Patient Education Copyright 2008 - 2010 [facility] except where otherwise noted. Hi Iris Joselito, As your primary care physician, I know that regular visits with my patients who have several chronic conditions can go a long way in helping you stay healthy. Many times, the clinic team and I are in touch with you and/or other care team members between office visits to adjust medications, discuss any changes in your health, and review our care plan to make sure it is still meeting your needs. I am dedicated to helping you take a more active role in your overall care. It is important that there are resources available to you, so I created a personalized plan of care with a Health Calendar for you, which is included on the next page of this letter. Below is a list that summarizes your electronic health record: Health Maintenance Due: Health Maintenance Due Topic Date Due Alpha-1 Antitrypsin Never done O2 ASSESSMENT COMPLETED IN PAST YEAR FOR COPD Never done DTaP,Tdap,and Td Vaccines (2 - Td or Tdap) 10/25/2017 Colorectal Cancer Screening 01/24/2019 Zoster Vaccines (3 of 3) 03/10/2019 DXA Scan 11/21/2021 Diabetic Foot Exam 08/26/2023 Current Medication List: (as of Visit date not found (in office), Visit date not found (telemedicine) ) Current Outpatient Medications Medication Sig Dispense Refill VITAMIN B COMPLEX PO CAPS Take by mouth 1 Capsule daily . CO Q 10 100 MG PO CAPS Take by mouth 100 mg daily . ASPIRIN 81 MG PO TABS Take 1 Tablet by mouth in the morning. oxygen GAS Use 2 L/min(Oxygen) as directed at bedtime. Multiple Vitamins-Minerals (MULTIVITAMIN WOMEN) TABS Take by mouth 1 Tablet daily . nitroglycerin (NITROSTAT) 0.[address] 1 Tab under the tongue as needed for Pain, Chest. May repeat 3 times. If chest pain continues, call 911. 25 Tab 1 Wheat Dextrin (BENEFIBER) powder Take by mouth . 1 teaspoon daily in beverage Pomegranate 250 MG CAPS Take by mouth . Taking 400 mg daily fexofenadine (ARGELIA) 180 MG Tablet Take 1 Tab by mouth daily. For allergies. (Patient taking differently: Take 1 Tablet by mouth daily as needed for Allergies.) 90 Tab 3 Fluocinolone Acetonide 0.01 % Otic Oil Administer into ears once a week . On Saturdays Systane Preservative Free 0.4-0.3 % Ophthalmic Solution (Polyethyl Glyc- Propyl Glyc PF) Instillinto eye 1 Drop daily as needed for Other. Vitamin D 125 MCG (5000 UT) Oral Capsule Take by mouth. Atorvastatin Calcium 80 MG Oral Tablet (Lipitor) TAKE ONE TABLET BY MOUTH EVERYday 100 Tablet 3 Ipratropium [place] 0.03 % Nasal Solution (Atrovent) ADMINISTER 2 SPRAYS INTO EACH NOSTRIL 4 TIMES A DAY NEEDED FOR RHINITIS. FOR RUNNY NOSE 90 mL 1 Amitriptyline HCl 10 MG Oral Tablet (Elavil) TAKE 1 TABLET BY MOUTH EVERYDAY AT BEDTIME 100 Tablet 1 Apixaban 5 MG Oral Tablet (Eliquis) TAKE ONE TABLET BY MOUTH TWICE A DAY 200 Tablet 1 Esomeprazole Magnesium 40 MG Oral Capsule Delayed Release Take 1 Capsule by mouth 2 times a daywith morning and evening meals. 200 Capsule 1 Empagliflozin 10 MG Oral Tablet (Jardiance) Take 1 Tablet by mouth in the morning. Atenolol 50 MG Oral Tablet (Tenormin) TAKE ONE TABLET BY MOUTH TWICE A DAY 200 Tablet 3 Pregabalin 25 MG Oral Capsule (Lyrica) TAKE ONE CAPSULE BY MOUTH EVERY MORNING AND TAKE ONE CAPSULE BEFORE BEDTIME 60 Capsule 2 Lisinopril 5 MG Oral Tablet (Prinivil) TAKE ONE TABLET BY MOUTH EVERY DAY 90 Tablet 3 Respiratory Therapy Supplies (NEBULIZER) ZAIRA Use as directed. Duonebs, 3 ml's every 6 hours asneeded 1 Device 0 OneTouch Verio w/Device Kit Use once a day Dx: E11.9 1 Kit 0 OneTouch Delica Plus [id number] USE TO TEST BLOOD SUGAR ONCE A DAY DIRECTED 100 Each 1 Isosorbide Mononitrate ER 30 MG Oral Tablet Extended Release 24 Hour (Imdur) TAKE ONE TABLET BYMOUTH EVERY MORNING 90 Tablet 3 Ipratropium-Albuterol 20-100 MCG/ACT Inhalation Aerosol Solution (Combivent Respimat) INHALE 1 PUFF BY MOUTH IN THE MORNING, 1 PUFF AT NOON, 1 PUFF IN THE EVENING, AND 1 PUFF BEFORE BEDTIME 12 g 1 Ingenuity SystemsTouch Verio In Vitro Strip (Glucose Blood) USE TO TEST BLOOD SUGAR ONCE A DAY 100 Strip 3 No current facility-administered medications for this visit. Current List of Allergies: (as of Visit date not found (in office), Visit date not found (telemedicine) ) Review of patient's allergies indicates: Allergen Reactions Amoxicillin Rash Levofloxacin Other (Please comment) Weakness, lightheadedness, nausea Niaspan [Niacin Er] Burned throat. Prednisone Blood pressure went up. Zyban [Bupropion Hcl] Most Recent Lab Results: Results for orders placed or performed in visit on 06/02/23 CULTURE, WOUND, SUPERFICIAL, AEROBIC Result Value Ref Range Culture Growth Moderate Staphylococcus aureus (A) Susceptibility Staphylococcus aureus - MICROBROTH DILUTIONS Clindamycin Susceptible Erythromycin Susceptible Oxacillin Susceptible Penicillin G Resistant Tetracycline Susceptible Trimeth/Sulfamethoxazole Susceptible Vancomycin Susceptible *Note: Due to a large number of results and/or encounters for the requested time period, some results have not been displayed. A complete set of results can be found in Results Review. Sincerely, Daysi Pham MD 08/27/2023 [facility] Calendar (as of Visit date not found (in office), Visit date not found (telemedicine) ) Care needs Care needs Last completed Due next Alpha-1 Antitrypsin --- Never done Yearly COPD oxygen test --- Never done Diphtheria, tetanus & pertussis vaccines (2 - Td or Tdap) 10/26/2007 10/25/2017 Colorectal cancer screening (colonoscopy 10 years, sigmoidoscopy 5 years, Cologuard 3 years, stool sample 1 year) 01/24/2018 01/24/2019 Zoster (Shingles) Vaccine (3 of 3) 01/13/2019 03/10/2019 Bone Density 11/21/2018 11/21/2021 Diabetic Foot Exam 08/25/2022 08/26/2023 A1C blood sugar test 05/12/2023 11/10/2023 Mammogram 11/18/2022 11/19/2023 Flu vaccine (recommended) (Season Ended) 2022 01/02/2024 Diabetic Eye Exam 02/22/2023 02/23/2024 Urine albumin/creatinine test 03/02/2023 03/02/2024 Kidney Function Test 05/12/2023 05/12/2024 As you look over the recommended services, be sure to check with your insurance company to determine what's covered. [employer] is a great tool that helps you review your medical record online, including test results, doctor notes and your health summary. You can also schedule appointments with me and other members of your care team, request prescription refills and ask for advice related to your medical conditions at [email or web address]. Diabetes: Keeping Feet Healthy Inspect your feet every day for signs of a problem. Diabetes can damage nerves in your feet and cause neuropathy. This condition makes it hard for you to feel injuries or sore spots. Diabetes can also change blood flow, making it harder for small problems, like a blister, to heal properly. In fact, minor injuries can quickly become serious infections that send you to the hospital. Practice self-care to protect your feet and keep them healthy. Take Special Care Inspect your feet daily for problems such as redness, blisters, cracks, dry skin, or numbness. Use a mirror to see the bottoms of your feet. Or, ask for help. Manage your diabetes. Monitor and control your blood sugar. Take all your medications as prescribed. Avoid walking barefoot, even indoors. Wash your feet with warm water and mild soap. Dry well, especially between toes. Dont treat corns or calluses yourself. Talk to your doctor or commercial lines sales executive (a doctor who specializes in foot care) if you need assistance trimming your toenails. Use moisturizing cream or lotion if you have dry skin, but dont use it between toes. Dont use heating pads on your feet. If you have neuropathy, you could get a burn and not feel it. Stop smoking. Smoking restricts blood flow and can make it harder for wounds to heal. Have Regular Checkups Foot problems can develop quickly. So be sure to follow your healthcare teams schedule for regular checkups. During office visits, take off your shoes and socks as soon as you get in the exam room. Ask your healthcare provider to examine your feet for problems. This will make it easier to find and treat small skin irritations before they get worse. Regular checkups can also help keep track of the blood flow and feeling in your feet. If you have neuropathy, you may need to have checkups more often. Wear Proper Footwear Wearing proper footwear is very important. If areas of your feet have been damaged by too much pressure, your healthcare provider may recommend changing your footwear. In some cases, avoiding high heels or tight work boots may be all thats needed. Or, your healthcare provider may recommend special shoes or custom inserts. These help protect your feet and keep existing irritations from getting worse. If you need special footwear, ask your healthcare provider if you qualify for [facility] diabetic shoe program. Make Sure Shoes and Socks Fit Any pair of shoes--new or old--should feel comfortable as soon as you put them on. There shouldnt be any rubbing when you walk. Wear the right shoe for any activity. For instance, a running shoe is designed to keep your feet injury-free while jogging. Buy shoes at the end of the day, when your feet are larger. Make sure they provide support without feeling too loose. Make sure your socks fit, t oo. Wear soft, seamless, well-padded socks for activity. Cotton or microfiber socks are best to help to absorb sweat. To protect your feet, avoid shoes that are open-toed or open-heeled. If you have questions about what kinds of shoes and socks are best, talk to your healthcare team. Get Regular Exercise Regular exercise improves blood flow in your feet. It also increases foot strength and flexibility.Gentle exercises, like walking or riding a stationary bicycle, are best. You can also do special foot exercises. Just be sure to talk with your healthcare provider before starting any exercise program. Also mention if any exercise causes pain, redness, or other signs of foot problems. Note: If you have any kind of break in the skin of your foot or ankle, keep the area clean. Then call your doctor--especially if the area doesnt appear to be healing. [id number] [employer], [address] [place] [address], [place] [address]. All rights reserved. This information is not intended as a substitute for professional medical care. Always follow your healthcare professional's instructions. documented in this encounter Progress Notes * Evans Earl RN - 08/27/2023 3:18 PM EDT AD8 Dementia Screening Interview Person answering questions: patient Remember, "Yes, a change" indicates that there has been a change in the last several years caused by cognitive (thinking and memory) problems 1. Problems with judgement (eg: problems making decisions, bad financial decisions, problems with thinking). No (0) 2. Less interest in hobbies/activities. No (0) 3. Repeats the same things over and over (questions, stories, or statements). No (0) 4. Trouble learning how to use a tool, appliance, or gadget (eg: VCR, computer, microwave, remote control). No (0) 5. Forgets correct month or year. No (0) 6. Trouble handling complicated financial affairs (eg: balancing checkbook, income taxes, paying bills). No (0) 7. Trouble remembering appointments. No (0) 8. Daily problems with thinking and/or memory. No (0) TOTAL AD8: 0 - AD8 Dementia Screening Score The final score is a sum of the number items marked "Yes, A Change". 0 - 1: Normal cognition; 2 or greater: Cognitive impairments is likely to be present - further testing required Adult Annual Wellness Visit: Pastora Yee is a 73 year old female who presents for an Adult Annual Wellness Visit. Depression Screening: Did the patient complete the screening questionnaire for Depression? Yes Is the patient's total score for Depression 15 or greater? No, no further intervention needed, unless requested by patient. Did the patient answer positively to the suicide question? No, no further intervention needed, unless requested by patient. In general, compared to other people your age, what would you say that your health is? Poor Ht Readings from Last 1 Encounters: 08/27/23 1.626 m (5' 4") Wt Readings from Last 1 Encounters: 08/27/23 103.9 kg (229 lb) Body Mass Index: BMI Greater than 30 Body mass index is 39.31 kg/m. BP Readings from Last 1 Encounters: 08/27/23 122/60 Medical/Surgical/Family History Reviewed: Yes Past Medical History: Diagnosis Date Calculus of gallbladder without mention of cholecystitis or obstruction 04/14/04 one cm gall stone Carotid stenosis, non-symptomatic Cerebrovascular event, ill-defined, within last 8 weeks Chronic coronary artery disease Chronic total RCA DENTURES Diverticulosis of colon Fatty liver GERD (gastroesophageal reflux disease) H. pylori infection resolved. Herpes zoster HTN, goal to be determined IBS (irritable bowel syndrome) Metabolic syndrome Mixed dyslipidemia Other osteoporosis Paroxysmal SVT (supraventricular tachycardia) (HCC) AFib? diagnosed 30 yrs ago Pericardial effusion Positive PPD Pulmonary tuberculosis +TB test - neg CXR Simple or chronic serous otitis media Chronic Serous Otitis Media SOLITARY PULMONARY NODULE 07/30/[address] scan in three months Tobacco use disorder Vertigo Past Surgical History: Procedure Laterality Date ABD/PELVIS CT W/ + W/O IV AND W/PO CONTRAST 07/30/2008 left ovarian calcification, pulmonary nodule RLLL, pericardial effusion, COLONOSCOPY W/ BIOPSY (RECTUM) 09/28/2007 repeat in 10 years normal path COLONOSCOPY, DIAGNOSTIC (RECTUM) 01/24/2018 diverticulosis, poor prep, repeat 1 yr/[facility] CT CHEST W WO CONTRAST 10/08/2008 stable pulmonary nodules. repeat in six months CT CHEST WO CONTRAST 01/18/2014 Stable noncalcified nodules in the right lower lobe, unchanged since 2010. No new lung nodules. 2. Stable ectasia of the ascending thoracic aorta measuring 4.0 cm maximally. 3. Borderline inferior right paratracheal lymph node, unchanged. DOPPLER ECHO EXAM OF HEART,COMPLETE 08/27/2008 LVEF 45%, some hypokinesis LV EGD, FLEXIBLE, W/BIOPSY 12/02/2012 LAPAROSCOPY; CHOLECYSTECTOMY 06/18/2004 LIGATE/CUT OVIDUCT(S) MAMMOGRAM SCREENING BILATERAL Bilateral 10/15/2016 scattered fibroglandular densities, category 1 normal SC XCAPSL CTRC RMVL INSJ IO LENS PROSTH W/O ECP Bilateral 08/2020 REMOVE GALLBLADDER 2005 REMOVE TONSILS & ADENOIDS, UNDER 12 THROMBOENDARECTOMY W/PATCH,NECK INCISION 05/10/2002 Right Carotid Endarterectomy with artificial graft05/10/02 ([facility] - Dr. Rm) THROMBOENDARECTOMY W/PATCH,NECK INCISION Left 05/14/2004 Left carotid endarterectomy by Dr. Rm THROMBOENDARECTOMY W/PATCH,NECK INCISION Right 2002 x 2 US PELVIS TRANS-ABDOMINAL 08/23/2008 Normal Family History Problem Relation Age of Onset Cancer Mother uterine ca Heart Disorder Mother pacemaker Cancer Father lung ca Gastro-intestinal disorder Father cirrhosis and brother brother age 49 Cancer Grandmother (Paternal) lung ca Cancer Brother troat Other (Other) Other no breast/ovarian/colon cancer Heart Disorder Brother massive mi age 57 Other (Other) Daughter hydrocephalic Diabetes Aunt (Unspecified) Has patient ever had cancer? No Social History Tobacco Use Smoking status: Former Current packs/day: 0.00 Average packs/day: 1 pack/day for 60.0 years (60.0 ttl pk-yrs) Types: Cigarettes Start date: 12/23/1958 Quit date: 12/23/2018 Years since quittin.6 Smokeless tobacco: Never Tobacco comments: Started smoking age - 8 Substance Use Topics Alcohol use: No Vaping/E-Cigarette Use Vaping/E-Cigarette Use Never User Vaping/E-Cigarette Substances Vaping/E-Cigarette Devices Tobacco/Alcohol screening completed today? Yes Hospital Care: Admissions (within the last year): Not Applicable ER within 30 days: No Does the patient have an Advance Directives/Living Will? No. Does the patient want information? No.Patient declined information Last Physical Exam: Last physical exam: Does patient see primary provider regularly? Yes Does patient see other providers? Yes, Specialist Patient Care Team updated? Yes Review of patient's allergies indicates: Allergen Reactions Amoxicillin Rash Levofloxacin Other (Please comment) Weakness, lightheadedness, nausea Niaspan [Niacin Er] Burned throat. Prednisone Blood pressure went up. Zyban [Bupropion Hcl] Immunization History Administered Date(s) Administered COVID-19 mRNA, LNP-s, No Preserve, 2-Dose Series (Pfizer) 08/06/2020, 08/27/2020, 03/25/2021 COVID-19, MRNA-LNP, 23-24, PF, 30 MCG/0.3 mL, 12 YRS AND ABOVE, IM (Digidentity- Comirnat) 06/14/2023 Covid-19, Mrna, Lnp-s, Pf, Bivalent, 30 Mcg, IM, 12 yrs and above (Pfizer) 04/28/2022 H1N1 2009 Influenza, IM 05/15/2009 Pneumococcal Conjugate Vacc, 13 Valent (Prevnar) 11/01/2014 Pneumococcal Polysaccharide PPV23 (Pneumovax) 05/03/2003, 06/30/2016 Season Influenza, Quad, PF, Adjuvanted, 65+ Yrs, IM (FLUAD) 02/16/2020 Seasonal Influenza Virus Vaccine, Unspecified Formulation 03/17/2005, 01/31/2006, 01/31/2007, 02/29/2008, 01/18/2009, 05/15/2009, 01/30/2010, 01/27/2011, 02/01/2012, 01/31/2013, 01/11/2014, 02/28/2016, 03/03/2017, 01/31/2018, 02/14/2018, 01/10/2019, 02/16/2020, 02/06/2021, 01/20/2022 Seasonal Influenza, Quadrivalent Hd (Fluzone Hd) 02/06/2021, 01/20/2022 Seasonal Influenza, Quadrivalent, No Preserve, IM 02/05/2015, 02/28/2016, 01/31/2018 Seasonal Influenza, Split, IIV3, With Preserve, Inj 03/17/2005, 01/31/2006, 01/31/2007, 02/29/2008,01/18/2009, 01/30/2010, 01/27/2011, 02/01/2012, 01/31/2013, 01/11/2014, 03/03/2017 Seasonal Influenza, Trivalent, Adjuvanted, 65+ yrs 01/10/2019 TDAP (age 11 and older)(Adacel) 10/26/2007 Varicella Zoster Vaccine (Adult) 03/15/2015 Zoster Vaccine Recombinant (Shingrix) 01/13/2019 Current Outpatient Medications Medication Sig Dispense Refill VITAMIN B COMPLEX PO CAPS Take by mouth 1 Capsule daily . CO Q 10 100 MG PO CAPS Take by mouth 100 mg daily . ASPIRIN 81 MG PO TABS Take 1 Tablet by mouth in the morning. oxygen GAS Use 2 L/min(Oxygen) as directed at bedtime. Multiple Vitamins-Minerals (MULTIVITAMIN WOMEN) TABS Take by mouth 1 Tablet daily . nitroglycerin (NITROSTAT) 0.[address] 1 Tab under the tongue as needed for Pain, Chest. May repeat 3 times. If chest pain continues, call 911. 25 Tab 1 Wheat Dextrin (BENEFIBER) powder Take by mouth . 1 teaspoon daily in beverage Pomegranate 250 MG CAPS Take by mouth . Taking 400 mg daily fexofenadine (ARGELIA) 180 MG Tablet Take 1 Tab by mouth daily. For allergies. (Patient taking differently: Take 1 Tablet by mouth daily as needed for Allergies.) 90 Tab 3 Fluocinolone Acetonide 0.01 % Otic Oil Administer into ears once a week . On Saturdays Systane Preservative Free 0.4-0.3 % Ophthalmic Solution (Polyethyl Glyc-Propyl Glyc PF) Instill into eye 1 Drop daily as needed for Other. Vitamin D 125 MCG (5000 UT) Oral Capsule Take by mouth. Atorvastatin Calcium 80 MG Oral Tablet (Lipitor) TAKE ONE TABLET BY MOUTH EVERYday 100 Tablet 3 Ipratropium [place] 0.03 % Nasal Solution (Atrovent) ADMINISTER 2 SPRAYS INTO EACH NOSTRIL 4 TIMES A DAY NEEDED FOR RHINITIS. FOR RUNNY NOSE 90 mL 1 Amitriptyline HCl 10 MG Oral Tablet (Elavil) TAKE 1 TABLET BY MOUTH EVERYDAY AT BEDTIME 100 Tablet 1 Apixaban 5 MG Oral Tablet (Eliquis) TAKE ONE TABLET BY MOUTH TWICE A DAY 200 Tablet 1 Esomeprazole Magnesium 40 MG Oral Capsule Delayed Release Take 1 Capsule by mouth 2 times a day with morning and evening meals. 200 Capsule 1 Empagliflozin 10 MG Oral Tablet (Jardiance) Take 1 Tablet by mouth in the morning. Atenolol 50 MG Oral Tablet (Tenormin) TAKE ONE TABLET BY MOUTH TWICE A DAY 200 Tablet 3 Pregabalin 25 MG Oral Capsule (Lyrica) TAKE ONE CAPSULE BY MOUTH EVERY MORNING AND TAKE ONE CAPSULEBEFORE BEDTIME 60 Capsule 2 Lisinopril 5 MG Oral Tablet (Prinivil) TAKE ONE TABLET BY MOUTH EVERY DAY 90 Tablet 3 Respiratory Therapy Supplies (NEBULIZER) ZAIRA Use as directed. Duonebs, 3 ml's every 6 hours as needed 1 Device 0 [employer]gen[employer] SystemsTouch Verio w/Device Kit Use once a day Dx: E11.9 1 Kit 0 [email or web address] Delica Plus [id number] USE TO TEST BLOOD SUGAR ONCE A DAY DIRECTED 100 Each 1 Isosorbide Mononitrate ER 30 MG Oral Tablet Extended Release 24 Hour (Imdur) TAKE ONE TABLET BY MOUTH EVERY MORNING 90 Tablet 3 Ipratropium-Albuterol 20-100 MCG/ACT Inhalation Aerosol Solution (Combivent Respimat) INHALE 1 PUFFBY MOUTH IN THE MORNING, 1 PUFF AT NOON, 1 PUFF IN THE EVENING, AND 1 PUFF BEFORE BEDTIME 12 g 1 [employer] In Vitro Strip (Glucose Blood) USE TO TEST BLOOD SUGAR ONCE A DAY 100 Strip 3 No current facility-administered medications for this visit. Patient Active Problem List Diagnosis Code LACUNAR STROKE > PERIPH FIELD DEFECT I69.30 ADVANCE DIRECTIVE INFORMATION Chronic coronary artery disease I25.10 Diverticulosis of colon K57.30 Lung nodule R91.1 CEREBROVASCULAR DZ, POST-STROKE I67.2, Z86.73 Osteoarthrosis M19.90 HTN, goal below 140/90 I10 Dyslipidemia, goal LDL below 100 E78.5 Bilateral carotid artery stenosis I65.23 Atherosclerotic peripheral vascular disease with intermittent claudication ([facility]) I70.219 Fatty liver K76.0 Persistent insomnia G47.00 Subclavian artery stenosis, left ([facility]) I77.1 IBS (irritable bowel syndrome) K58.9 Postmenopausal atrophic vaginitis N95.2 Chronic pain of both ankles M25.571, G89.29, M25.572 Psoriasis L40.9 Erythrocytosis D75.1 Secondary polycythemia D75.1 Aphasia as late effect of stroke I69.320 Paroxysmal atrial fibrillation ([facility]) I48.0 COPD, group B, by GOLD 2017 classification ([facility]) J44.9 Gastroesophageal reflux disease without esophagitis K21.9 Type 2 diabetes mellitus with hemoglobin A1c goal of less than 8.0% ([facility]) E11.9 Type 2 diabetes, controlled, with neuropathy ([facility]) E11.40 Anxiety state F41.1 Mesenteric artery stenosis ([facility]) K55.1 Medication Compliance: Patient is able to obtain all of her medications? Yes Patient takes medications as prescribed? Yes Patient manages own medications: Yes Patient uses a pill box? Yes, refill(s) completed by self Dental Exam: full Eye Screening: Yes: Every year Are you having trouble with hearing? yes Do you use an assistive device to help your hearing? Yes but doesn't use Exercise Screening: does not exercise regularly Nutrition Assessment: 5-6 small Pain Screening: Are you having any pain? Yes. Pain Scale: 10 out of 10; chronic pain Sleep Screening Tool 'STOP': Do you snore? No Do you feel fatigued during the day? Yes Do you wake up feeling like you haven't slept? No Have you been told you stop breathing at night? No Do you gasp for air or choke while sleeping? No Have you been told you have Sleep Apnea? No Do you have high blood pressure or are on medication(s) to control high blood pressure? Yes SCORE: If you check YES to two or more questions, make a referral for Obstructive Sleep Apnea Patient does use 2L oxygen at night, will never wear a cpap Patient and Caregiver Support System: Patient lives alone Means of Transportation: Family transports Patient lives in [place] , one step Community Resources: Not Applicable Functional Status and ADL Skills: Has patient ever had an amputation? No Functional Assessment: 80- Normal activity with effort: some symptoms of disease Ambulation: Patient ambulates without assistive device. Independent Dressing: Gets clothes and dresses without any assistance: Independent Able to move freely in chair or bed including turning over: Independent Repositioning (bed or chair): Not applicable Transfers: Independent Toileting: Goes to bathroom, uses toilet, arranges clothes and returns without any assistance: Independent Toileting: continent of bladder and continent of bowel Feeding: Self Bathing: Self; shower chair with grab bars Requires minimal assistance with ADLs. Instrumental ADL's: Shopping: Minimal Assistance Housekeeping: Independent Handling Finances: Independent DME Vendor Name: Not Applicable Fall Risk Assessment: Can the patient demonstrate that she can stand from a sitting position? Yes Has the patient had a fall within the last 6 months? No Does the patient have a problem with her gait or balance? No Does the patient take 4 or more prescription medicines? Yes Does the patient use sedatives or narcotics? No Fall Risk Factors Present: No fall risk factors present. Stq-Qx-pcj-Go Test: Time began at 300. Patient stood from sitting position and walked approximately 10 feet, returned and sat down. Total time for olb-pj-cla-go test was 10 seconds. Pub-Jc-oau-Go Test completed? Yes Gender Specific Preventative Plan: Health Maintenance Topic Date Due Alpha-1 Antitrypsin Never done O2 ASSESSMENT COMPLETED IN PAST YEAR FOR COPD Never done DTaP,Tdap,and Td Vaccines (2 - Td or Tdap) 10/25/2017 Colorectal Cancer Screening 01/24/2019 Zoster Vaccines (3 of 3) 03/10/2019 Diabetic Foot Exam 08/26/2023 DXA Scan 11/21/2025 (Originally 11/21/2021) HbA1c 11/10/2023 Mammogram 11/19/2023 Influenza Vaccine (FLU shot) (Season Ended) 2024 Diabetic Eye Exam 02/23/2024 Albumin/Creatinine Ratio 03/02/2024 GFR 05/12/2024 Depression Screening 08/26/2024 Pneumococcal Vaccine: 65+ Years Completed COVID-19 Vaccine Completed Hepatitis B Aged Out MENINGOCOCCAL (MENACTRA/MENVEO) Aged Out GARDASIL-HPV IMMUNIZATION SERIES Aged Out RETIRED - COLONOSCOPY-ANNUAL AGES 18-100 Discontinued Follow Up/ Referrals/Handouts: Depression screening - completed Functional assessment - doing well lives alone , SO lives near by Falls Risk screening - discussed Exercise screening - encouraged to do stationary bike, or swimming, patient states her feet hurt towalk Nutrition assessment -. Patient states she eats 5-6 meals throughout the day Pain screening - chronic leg and feet Incontinence screening - no concerns Patient has been verbally educated on the need or importance of Cholesterol, Colon Cancer Screening, Dexa Scan, Diabetic Foot Exam, GFR, Glucose, Hemoglobin A1c, and Immunizations: covid,flu,shingrix Pt has completed the covid vaccines: No Routine general medical examination at a health care facility (Primary) Risk and functional assessment Atherosclerotic peripheral vascular disease with intermittent claudication (HCC) - Med reconciliation completed and compliance discussed. - pt to continue present medications. Bilateral carotid artery stenosis - Med reconciliation completed and compliance discussed. - pt to continue present medications. Chronic pain of both ankles - Med reconciliation completed and compliance discussed. - pt to continue present medications. COPD, group B, by GOLD 2017 classification ([facility]) - Med reconciliation completed and compliance discussed. - pt to continue present medications. Dyslipidemia, goal LDL below 100 - Med reconciliation completed and compliance discussed. - pt to continue present medications. Gastroesophageal reflux disease without esophagitis - Med reconciliation completed and compliance discussed. - pt to continue present medications. HTN, goal below 140/90 - Med reconciliation completed and compliance discussed. - pt to continue present medications. Paroxysmal atrial fibrillation ([facility]) - Med reconciliation completed and compliance discussed. - pt to continue present medications. Persistent insomnia -patient does wear 2L oxygen at bedtime and with ambulation Type 2 diabetes mellitus with hemoglobin A1c goal of less than 8.0% ([facility]) Type 2 diabetes, controlled, with neuropathy ([facility]) - Med reconciliation completed and compliance discussed. - pt to continue present medications. Advanced care planning/counseling discussion Advance Care Planning is important for all adults. Discussed the process of thinking and talking about future healthcare decisions.ACP form and pamphlet given to patient to take home to discuss with family. Once form is completed , patient to get a copy to us to scan into their chart. Type 2 diabetes mellitus with hemoglobin A1c goal of less than 8.0% ([facility]) - DIABETES FOOT EXAM Follow Up: Return in 1 year (on 08/26/2024) for 12 month Subsequent Adult Wellness Visit. | For: 12 month Subsequent Adult Wellness Visit | Check-out note: 12 month Subsequent Adult Wellness Visit Would patient like to schedule next AWV visit? Yes Evans Earl RN Socks and Shoes Removed for Annual Diabetic Foot Screening RIGHT FOOT: No Reddened, Cracking, Or Open Areas Noted. RIGHT Dorsalis Pedis Pulse: Unable to locate RIGHT Posterior Tibial Pulse: Unable to locate RIGHT Monofilament:Patient reports feeling monofilament pressure on plantar surface of foot LEFT FOOT: No Reddened, Cracking or Open Areas Noted. LEFT Dorsalis Pedis Pulse: Unable to locate LEFT Posterior Tibial Pulse: Unable to locate LEFT Monofilament:Patient reports feeling monofilament pressure on plantar surface of foot Do you need diabetic shoes: No documented in this encounter Miscellaneous Notes * Pt Handout (not on AVS) - Evans Earl RN - 08/27/2023 4:14 PM EDT [id number] Overview of Sleep Disorders Facts about sleep disorders Loss of sleep can cause problems at home or on the job. It can lead to serious or even fatal accidents. The National Sleep Foundation notes that: Between 50 and 70 million [place] adults have some type of sleep or wakefulness disorder. Sleep problems often get worse as you get older. Poor sleep cost billions of dollars a year. This is from healthcare expenses and lost productivity. Drowsy drivers cause about 40,000 vehicle crashes in the [place] every year. This includes more than 1,500 deaths. Types of sleep disorders There are many types of sleep disorders. They can affect health and quality of life. The disorders include: Insomnia Sleep apnea Sleepwalking Bedwetting Nightmares Night terror Restless legs syndrome Snoring Narcolepsy Why is sleep important? Sleep is not just resting or taking a break from busy routines. Sleep is a child part of good health.Getting enough sleep may help the body recover from illness and injury. Not getting enough sleep over a period of time is linked to health problems. They include obesity, diabetes, and heart disease. The mental benefits of sleep are also important. Sleep problems can make daily life feel more stressful and less productive. Some people with chronic trouble sleeping (insomnia) are more likely to have mental health problems. Sleep problems are also tied to depression. In a research survey, people who had trouble getting enough sleep had trouble doing tasks that use memory and learning. How much sleep do you need? Sleep needs vary from person to person. But most healthy adults need about 7 to 9 hours of sleep a night. You may need more or better sleep if you: Have trouble staying alert during quiet activities Are irritable with coworkers, family, or friends Have trouble focusing or remembering facts Have trouble falling asleep or staying asleep, or wake up early and can't get back to sleep Getting treatment for a sleep disorder For those who suffer from sleep disorders, help is available from many sources. Sleep problems can be treated or managed by different kinds of healthcare providers. You may be treated by a healthcareprovider who specializes in any of these: Internal medicine Gerontology Pediatrics Family practice Pulmonary medicine Neurology Psychiatry Otolaryngology You can also find a healthcare provider who is certified in sleep medicine by the [place] [employer]. Talk with your healthcare provider about finding a sleep disorder program. Last Reviewed Date: 05/03/202219996719-9799 [employer]. All rights reserved. This information is not intended as a substitute for professional medical care. Always follow your healthcare professional's instructions. * Addendum Note - Evans Earl RN - 08/27/2023 4:12 PM EDTAddended by: EVANS EARL on: 08/27/2023 04:12 PM Modules accepted: Orders * ACP (Advance Care Planning) - Evans Earl RN - 08/27/2023 4:02 PM EDT Images from the original note were not included. Patient-centered Communication 08/27/2023 The patient/surrogate voluntarily agreed to participate in advance care planning discussion. They were advised that this is a separate service which may incur out of pocket cost in the form of copayment and/or deductibles. Location: Clinic Individual(s) present for conversation: Patient Decisions Additional Comments Discerning What Matters Most to the Patient: Source: Content from [facility] Aligning Care With What Matters Most: No data to display Rationale for Decisions Source: Content from [facility] 10 minutes spent in direct vkwb-wu-mymw discussion today, Evans Earl RN * Pt Handout (on AVS) - Evans Ealr RN - 08/27/2023 3:46 PM EDT Images from the original note were not included. [id number] All About Cholesterol Control This sheet tells you how cholesterol affects your health. It explains how medicines and lifestyle changes can help improve your cholesterol levels. Understanding cholesterol Cholesterol is a type of fat (lipid) that?s carried in the blood. Your body makes cholesterol in the liver. You also get it from some foods. Your body needs some cholesterol to build healthy cells. But too much cholesterol can cause it to build up in blood vessels. This turns into plaque. Plaque is a fatty substance. Over time, plaque can narrow and harden the blood vessels. This reduces or blocks blood flow in these vessels. This is known as atherosclerosis. It raises your risk for heart attack, stroke, and other health problems. High blood cholesterol is a risk factor for atherosclerosis. Types of lipids in your blood Your blood has 3 main fats (lipids): LDL (low-density lipoprotein). This is known as bad cholesterol. It mainly carries cholesterol to body cells. Excess LDL will build up on artery villegas. This raises your risk for heart disease and stroke. HDL (high-density lipoprotein). This is known as good cholesterol. This protein shell collects excess cholesterol that LDL has left behind on blood vessel villegas. That's why high levels of HDL can lower your risk of heart disease and stroke. Triglycerides. Your body uses this form of fat to store energy. Like LDL cholesterol, this fat can cause plaque to build up in the blood vessels. Getting cholesterol tests You find out your blood lipid levels by having a blood test. You may need to not eat (fast) before getting this test. You may need your cholesterol levels checked at regular periods. This is to see if you are meeting your cholesterol goals. Make sure you know how often to get tested. Understanding your health risks In addition to your LDL levels, other factors may put you at high risk of atherosclerosis. These include: Diabetes Smoking High blood pressure Lack of exercise Obesity Family members who had early heart disease (men under age 55 and women under age 65) Metabolic syndrome Chronic kidney disease Chronic inflammatory conditions such as rheumatoid arthritis Menopause before age 40 History of -associated conditions such as pre-eclampsia Ethnicity (for example, from [place]) It's also important to consider your age and health history. Talk with your healthcare provider about your personal risk for heart disease and your treatment goals. Make sure you understand why thesegoals are based on your own health history and your family history of heart disease or high cholesterol. Medicines to control cholesterol Some people may need to take medicines to control their cholesterol. This can help prevent a heart attack or stroke. There are several types of medicine. Each type controls cholesterol in a differentway. Your healthcare provider will prescribe the type that?s best for you. You may need to take more than 1 medicine to reach your cholesterol goals. Ask your provider about any side effects your medicines may cause. Let your provider know if you have any side effects. The main types of medicines are: Statins. These are thought to be the best at lowering cholesterol. They do this by keeping your body from making cholesterol. This then tells the liver to remove cholesterol from your blood. This lowers LDL cholesterol. It may even remove cholesterol from plaque. Benefits: Statins lower LDL cholesterol. They slightly raise HDL cholesterol and lower triglycerides. Selective cholesterol absorption inhibitors. These prevent your body from absorbing cholesterol from food. They may be prescribed to use alone. Or you may take them with a statin. Benefits: These medicines lower LDL cholesterol. They slightly raise HDL cholesterol and lower triglycerides. Resins. Resins help you get rid of cholesterol through the intestines. They work by binding to bile. Bile is a substance that helps the body digest food. Your body uses cholesterol to make bile. Normally, most bile is absorbed by the body during digestion. But when bile is bound to resin, it's removed from the body. So the body must make more bile. To do this, the body takes up more cholesterol from the blood. Benefits: Resins lower LDL cholesterol. Fibrates (fibric acid derivatives). These are best at cutting back on how many triglycerides your body makes. They don?t work well to lower LDL. Benefits: Fibrates lower triglycerides. They raise HDL cholesterol. Niacin (nicotinic acid). Niacin (vitamin B-3) limits the liver's ability to make blood fats. Butdon?t use iymx-xhi-iouuoeb niacin for cholesterol problems. It isn?t regulated by the FDA. Benefits: Niacin raises HDL cholesterol. It lowers triglycerides and LDL cholesterol. [place]-3 fatty acids. These reduce the amount of triglycerides your body makes. They help to clear these lipids from the blood. [place]-3 fatty acids are found in many foods. These include salmon andother oily fish, and walnuts. Your healthcare provider may prescribe these fatty acids in capsule form. Benefits: [place]-3s lower triglycerides. (Note: They may increase LDL cholesterol in some patients.) PCSK9 inhibitors. These medicines lower LDL cholesterol levels. They do this by breaking down the chemicals in the liver that control making LDL cholesterol. These medicines are given by an injection. They are often used for people who have an inherited form of high cholesterol. This is called familial hypercholesterolemia. Benefits: This medicine helps people who have a hard time controlling their cholesterol with other medicines. Taking your medicine Take your medicine exactly as instructed. This will help it work best. Here are tips for taking cholesterol medicine: Tell your provider if you?re or . Do this before taking any cholesterol medicines. Know when and how to take your medicine. Some may need to be taken with food. Others may need samantha taken on an empty stomach or at a certain time of day. Stick to a schedule. Try the following: o Don?t skip doses or stop taking your medicine. This is important even if you feel better or if your cholesterol numbers improve. o Set things up to help you remember. For example, work your medicine into your daily routine. Takeit when you get up in the morning or when you go to bed at night. o Keep track of what you take. You may take a few different medicines. If so, a list or chart can help you take the right pills at the right time. Use a pillbox with days of the week or times of day to keep track. Prevent medicine interactions. Some medicines and supplements can interact with each other. Thismeans they affect how other medicines work when taken together. Be sure to tell your healthcare provider about all other medicines you take. This includes vitamins, herbs, and [id number] medicines. Know how to deal with side effects. Many people have side effects when they first start taking amedicine. These are things like headache, muscle aches, and stomach upset. Side effects should go away in a few weeks. Tell your healthcare provider about any side effects you have. Some side effectsinclude yellowing of the eyes, blurred vision, and breathing difficulties. If these occur, call your healthcare provider right away. Treatment with a healthy lifestyle Treatment for high cholesterol includes lifestyle changes. A healthy lifestyle is a vital part of preventing heart disease and stroke . Your healthcare provider will help you make changes to your lifestyle if needed. Things you may need to work on are: Diet Your healthcare provider will tell you what changes that you may need to make to your diet. You mayneed to see a registered dietitian for help. You might be asked to: Eat less meat that has saturated fat and cholesterol Eat less sodium (salt), especially if you have high blood pressure Eat more fresh vegetables and fruits Eat lean protein, like fish, chicken and turkey, and beans and peas Eat fewer processed meats, like deli meats, sausage, and pepperoni Choose low-fat milk, yogurt and cheese Use vegetable and nut oils instead of butter, shortening, or margarine Limit sweets and packaged foods, like chips, cookies, and baked foods Eat out less and not eat fast foods Physical activity Your healthcare provider may advise you to be more active. Exercise helps to increase your body's good HDL cholesterol. Your provider may advise that you do moderate to strong exercise for at least 40 minutes each day, 3 to 4 days each week. The amount may vary depending on your health. Some examples of this are: Walking at a brisk pace, about 3 to 4 miles per hour Jogging or running Riding a bicycle or stationary bike Swimming or water aerobics Dancing Hiking Martial arts Tennis If you haven?t exercised in a while, start slowly and build up to more. Weight management If you're overweight or obese, your healthcare provider may tell you to lose weight and lower your BMI (body mass index). Changing your diet and getting more exercise can help. Controlling the numberof calories you eat is the best way to lose weight. Smoking If you smoke, get help to quit now. Ask your healthcare provider about medicines that can help you fight cravings. Enroll in a stop-smoking program. This can improve your chances of success. Stress Learn ways to help you deal with stress in your home and work life. Here are a few ideas: Take a yoga class. You can find classes nearby or online. Get regular exercise. Exercise helps your mind let go of problems. It helps release stress in your muscles. Do deep breathing. Take a few minutes several times a day to just sit quietly and breathe. Focuson the air going into and out of your body. Talk with loved ones. Take a few minutes each day to connect with people that make you feel supported. Last Reviewed Date: 05/03/202119997929-2926 [employer]. All rights reserved. This information is not intended as a substitute for professional medical care. Always follow your healthcare professional's instructions. documented in this encounter Plan of Treatment Upcoming Encounters Date Type Department Care Team (Late st Contact Info) Description 12/13/2023 1:40 PM EDT Office Visit [address] [place] [phone] Christin Welch PA-C [address] [place] [address] [place] [id number] 06/20/2024 1:40 PM EST Office Visit [address] [place] [phone] Daysi Pham MD [address] [place] [address] [place] [phone] 08/29/2024 3:00 PM EDT Nurse Only Ancillary [address] [place] [phone] Zabrina, Nurse Annual [address] [place] [id number] Health Maintenance Due Date Last Done Comments Alpha-1 Antitrypsin 1967 O2 ASSESSMENT COMPLETED IN PAST YEAR FOR COPD 1967 Sigmoidoscopy 1994 Fecal Occult Blood Test 11/06/2006 11/06/2005 DTaP,Tdap,and Td Vaccines (2 - Td or Tdap) 10/25/2017 10/26/2007 Colonoscopy 01/24/2019 01/24/2018, 09/01, 08/11/2007, Additional history exists Colorectal Cancer Screening 01/24/2019 Zoster Vaccines (3 of 3) 03/10/2019 01/13/2019, 03/03 Cologuard 11/04/2020 11/04/2017 HbA1c 11/10/2023 05/12/2023, 08/01, 09/24/2021, Additional history [...] Discontinued 01/24/2018, 09/28/2007, 08/11/2007, Additional history exists COVID-19 Vaccine Completed 06/14/2023, , 03/25/2021, Additional history exists GARDASIL-HPV IMMUNIZATION SERIES Aged [...] as of this encounter Visit Diagnoses Diagnosis Routine general medical examination at a health care facility- Primary Risk and functional assessment Screening for unspecified condition Atherosclerotic peripheral vascular disease with intermittent claudication (HCC) Atherosclerosis of [place] arteries of the extremities with intermittent claudication Bilateral carotid artery stenosis Occlusion and stenosis of multiple and bilateral precerebral arteries without mention of cerebral infarction Chronic pain of both ankles COPD, group B, by GOLD 2017 classification (HCC) Dyslipidemia, goal LDL below 100 Other and unspecified hyperlipidemia Gastroesophageal reflux disease without esophagitis Esophageal reflux HTN, goal below 140/90 Unspecified essential hypertension Paroxysmal atrial fibrillation (HCC) Atrial fibrillation Persistent insomnia Persistent disorder of initiating or maintaining sleep Type 2 diabetes mellitus with hemoglobin A1c goal of less than 8.0% (HCC) Type 2 diabetes, controlled, with neuropathy (HCC) Type II or unspecified type diabetes mellitus with neurological manifestations, not stated as uncontrolled Advanced care planning/counseling discussion Other specified counseling Type 2 diabetes mellitus with hemoglobin A1c goal of less than 7.0% ([facility]) documented in this encounter Care Teams Manager Channel Relationship Specialty Start Date End Date Daysi Pham MD [address] [place] [address] [place] [phone] PCP - General Family Medicine 07/01/17 documented as of this encounter
--- OUTSIDE RECORDS SUMMARY | 2023-11-26 18:48 | External Medical Summary | Summary of Care ---
Author Name Unknown Organization [facility] Address [address] [facility] [address] Phone [phone] Care Team Providers Care Coal Getter Name Role Phone Daysi Pham MD Primary Care Provide r Reason for Visit * Reason Comments Medication Refill Encounter Details Date Type Department Care Team (Late st Contact Info) Description 08/12/2023 Refill [address]iology [address] [place] [phone] Bela Black PA-C [address] [place] [address] HTN, goal below 140/90 Allergies Active Allergy Reactions Criticality Noted Date Comments Amoxicillin Rash 11/19/2011 Levofloxacin Other (Please comment) 11/13/2013 Weakness, lightheadedness, nausea Niacin Er 01/30/2010 Burned throat. Prednisone 09/03/2012 Blood pressure went up. Bupropion Hcl 01/30/2010 documented as of this encounter (statuses as of 08/12/2023) Medications Medication Sig Dispensed Refills Start Date End Date Status VITAMIN B COMPLEX PO CAPSIndications:sup plementation Take by mouth 1 Capsule daily . 0 Active CO Q 10 100 MG PO CAPSIndications:leg pain Take by mouth 100 mg daily . 0 Active ASPIRIN 81 MG PO TABSIndications:[employer] Take 1 Tablet by mouth in the morning. 0 Active oxygen GAS Use 2 L/min(Oxygen) as directed at bedtime. 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 Duonebs, 3 ml's every 6 hours as needed 1 Device 0 7 Active Multiple Vitamins-Minerals (MULTIVITAMIN WOMEN) TABSIndications:gen eraStreetfaireHD Take by mouth 1 Tablet daily . 0 Active nitroglycerin (NITROSTAT) 0.4 MG SUBLIndications:Chr onic coronary artery disease Place 1 Tab under the tongue as needed for Pain, Chest. May repeat 3 times. If chest pain continues, call 911. 25 Tab 1 9 Active Wheat Dextrin (BENEFIBER) powderIndications:g de health Take by mouth . 1 teaspoon daily in beverage 0 Active Pomegranate 250 MG CAPSIndications:for circulation Take by mouth . Taking 400 mg daily 0 Active fexofenadine (ARGELIA) 180 MG TabletIndications:N on-seasonal allergic rhinitis, unspecified trigger Take 1 Tab by mouth daily. For allergies. 90 Tab 3 0 Active Additional Information Patient taking differently:180 mg OralDAILY PRN, Allergies, (No instructions reported), Indications: allergies, Reported on 08/21/2022 OneTouch Verio w/Device KitIndications:Type 2 diabetes mellitus with hemoglobin A1c goal of less than 8.0% ([facility]) Use once a day Dx: E11.9 1 Kit 0 1 Active Fluocinolone Acetonide 0.01 % Otic OilIndications:for ear Administer into ears once a week . On Saturdays 0 Active Systane Preservative Free 0.4-0.3 % Ophthalmic Solution (Polyethyl Glyc-Propyl Glyc PF)Indications:dry eyes Instill into eye 1 Drop daily as needed for Other. 0 Active Vitamin D 125 MCG (5000 UT) Oral Capsule Take by mouth. 0 Active OneTouch Delica Plus [id number] s:Type 2 diabetes mellitus with hemoglobin A1c [...] Tablet 3 3 02/26/20 24 Active Ipratropium [place] 0.03 % Nasal Solution (Atrovent)Indicatio ns:Rhinorrhea ADMINISTER 2 SPRAYS INTO EACH NOSTRIL 4 TIMES A DAY NEEDED FOR RHINITIS. FOR RUNNY NOSE 90 mL 1 3 Active Ipratropium-Albuter ol 20-100 MCG/ACT Inhalation Aerosol Solution (Combivent Respimat)Indication s:COPD, group B, by GOLD 2017 classification ([facility]) INHALE 1 PUFF BY MOUTH IN [...] Tablet by mouth in the morning. 0 4 Active Atenolol 50 MG Oral Tablet (Tenormin)Indicatio ns:Chronic coronary artery disease TAKE ONE TABLET BY MOUTH TWICE A DAY 200 Tablet 3 4 Active Pregabalin 25 MG Oral Capsule (Lyrica)Indications :Type 2 diabetes, controlled, with neuropathy (HCC) TAKE ONE CAPSULE BY MOUTH EVERY MORNING AND TAKE ONE CAPSULE BEFORE BEDTIME 60 Capsule 2 4 Active OneTouch Verio In Vitro Strip (Glucose Blood)Indications:T ype 2 diabetes mellitus with hemoglobin A1c goal of less than 8.0% ([facility]) USE TO TEST BLOOD SUGAR ONCE A DAY 100 Strip 3 4 Active Lisinopril 5 MG Oral Tablet (Prinivil)Indicatio ns:HTN, goal below 140/90 TAKE ONE TABLET BY MOUTH EVERY DAY 90 Tablet 3 4 08/12/19 25 Active Lisinopril 5 MG Oral Tablet (Prinivil)Indicatio ns:HTN, goal below 140/90 TAKE ONE TABLET BY MOUTH EVERY DAY 90 Tablet 3 3 08/12/19 24 Discontinu ed(Refill) documented as of this encounter (statuses as of 08/12/2023) Active Problems Problem Noted Date Diagnosed Date [...] as of this encounter (statuses as of 08/12/2023) Resolved Problems Problem Noted Date Diagnosed Date [...] as of this encounter (statuses as of 08/12/2023) Immunizations Name Administration Dates Next Due COVID-19 mRNA, LNP-s, No Pre serve, 2-Dose Series ([employer]) 03/25/2021,08/27/2020,08/06/2020 COVID-19, MRNA-LNP, 23-24, P F, 30 MCG/0.3 mL, 12 YRS AND ABOVE, IM ([employer]) 06/14/2023 Covid-19, Mrna, Lnp-s, Pf, B ivalent, 30 Mcg, IM, 12 yrs and above (Pfizer) 04/28/2022 H1N1 2009 Influenza, IM 05/15/2009 Pneumococcal Conjugate Vacc, 13 Valent (Prevnar) 11/01/2014 Pneumococcal Polysaccharide PPV23 (Pneumovax) 06/30/2016,05/03/2003 Season Influenza, Quad, PF, Adjuvanted, 65+ Yrs, IM (FLUAD) 02/16/2020 Seasonal Influenza Virus Vac cine, Unspecified Formulation 02/14/2018 Seasonal Influenza, Quadriva lent Hd (Fluzone Hd) [...] encounter Miscellaneous Notes * Telephone Encounter - Bela Black PA-C - 08/12/2023 3:35 PM EDTSigned Prescriptions: Disp Refills Lisinopril 5 MG Oral Tablet (Prinivil) 90 Tab*3 Sig: TAKE ONE TABLET BY MOUTH EVERY DAY Authorizing Provider: BELA BLACK * Telephone Encounter - Meron Kerr CMA - 08/12/2023 8:59 AM EDTPending Prescriptions: Disp Refills Lisinopril 5 MG Oral Tablet (Prinivil) 90 Tab*3 Sig: TAKE ONE TABLET BY MOUTH EVERY DAY * Telephone Encounter - Meron Kerr CMA - 08/12/2023 8:58 AM EDT Did you pend patient's preferred pharmacy and medication before forwarding?yes Pharmacy: [facility] Pending Prescriptions: Disp Refills Lisinopril 5 MG Oral Tablet (Prinivil) 90 Tab*3 Sig: TAKE ONE TABLET BY MOUTH EVERY DAY Last Visit: 09/01/2022 (in office), Visit date not found (telemedicine) Next Visit: Visit date not found If no future appointments scheduled, and last appointment is greater than a year ago, please schedule patient for a follow-up appointment Last date the medication was ordered: 07-21-2022 Is this request for a controlled substance?No Urine Drug Screen:No results found. However, due to the size of the patient record, not all encounters were searched. Please check Results Review for a complete set of results. Patient Phone Numbers Labs: Lab Results Component Value Date/Time CREAT 1.2 (H) 05/12/2023 11:02 AM CREAT 0.9 12/21/2019 03:02 PM CREAT 0.7 04/07/1996 03:55 PM POTASSIUM 5.0 05/12/2023 11:02 AM POTASSIUM 4.8 12/21/2019 03:02 PM POTASSIUM 3.8 04/07/1996 03:55 PM TSH 1.43 08/11/2018 08:30 AM TSH 1.40 04/07/1996 03:55 PM LDLCALC 33 03/14/2019 02:35 PM LDLDIRECT 54 05/12/2023 11:02 AM LDLDIRECT 34 12/21/2019 03:02 PM LDLDIRECT 60 11/09/2013 08:40 AM ALT 21 05/12/2023 11:02 AM ALT 48 (H) 12/21/2019 03:02 PM HGBA1C 6.8 (H) 05/12/2023 11:02 AM HGBA1C 6.7 (H) 12/24/2018 02:25 AM HGBA1C 6.1 12/29/2016 08:27 AM documented in this encounter Plan of Treatment Upcoming Encounters Date Type Department Care Team (Late st Contact Info) Description 08/27/2023 3:00 PM EDT Nurse Only Ancillary [address] [place] [phone] Zabrina, Nurse Annual Wellness [address] [place] [address] [place] [phone] 12/13/2023 1:40 PM EDT Office Visit [address] [place] [phone] Christin Welch PA-C [address] [place] [address] [place] [phone] 06/20/2024 1:40 PM EST Office Visit [address] [place] [phone] Daysi Pham MD [address] [place] [address] [place] [phone] Health Maintenance Due Date Last Done Comments Alpha-1 Antitrypsin 1967 DTaP,Tdap,and Td Vaccines (2 - Td or Tdap) 10/25/2017 10/26/2007 COLONOSCOPY-ANNUAL AGES 18-100 01/24/2019 01/24/2018, 09/28/2007, 08/11/2007, Additional history exists Zoster Vaccines (3 of 3) 03/10/2019 01/13/2019, 03/03 DXA Scan 11/21/2021 11/21/2018, 11/01, 11/20/2010, Additional history exists Depression Screening 08/26/2023 08/25/2022 Diabetic Foot Exam 08/26/2023 08/25/2022, 08/25/2021 O2 ASSESSMENT COMPLETED IN PAST YEAR FOR COPD 08/26/2023 08/25/2022 HbA1c 11/10/2023 05/12/2023, 08/01, 09/24/2021, Additional history exists Mammogram 11/19/2023 11/18/2022, 07/0 08/2022, 11/04/2022, Additional history exists Influenza Vaccine (FLU shot) (Season Ended) 2024 01/20/2022, 02/06/2021, 02/06/2021, Additional history exists Diabetic Eye Exam 02/23/2024 02/22/2023, , 07/02/2021, Additional history exists Albumin/Creatinine Ratio 03/02/2024 023, 03/09/2022, 03/17/2021, Additional history exists GFR 05/12/2024 05/12/2023, 08/01, 09/24/2021, Additional history exists Pneumococcal Vaccine: 65+ Years Completed 06/30/2016, 11/01/2014, 05/03/2003 COVID-19 Vaccine Completed 06/14/2023, , 03/25/2021, Additional [...] as of this encounter Visit Diagnoses Diagnosis HTN, goal below 140/90 Unspecified essential hypertension documented in this encounter Care Teams Coal Getter Relationship Specialty Start Date End Date Daysi Pham MD [address] [place] [address] [place] [phone] PCP - General Family Medicine 07/01/17 documented as of this encounter
--- OUTSIDE RECORDS SUMMARY | 2023-11-26 18:48 | External Medical Summary | Summary of Care ---
Author Name Unknown Organization [facility] Address [address] [place] [address] Phone [phone] Care Team Providers Care Supplies Packer Name Role Phone Daysi Pham MD Primary Care Provide r Reason for Visit * Reason Comments Adult Annual Wellness Visit, Subsequent Visit Encounter Details Date Type Department Care Team (Late st Contact Info) Description 08/27/2023 3:00 PM EDT Nurse Only Ancillary [address] [place] [address] Nurse Zabrina [address] [place] [address] Adult Annual Wellness Visit, Subsequent Visit Allergies [...] . 0 Active ASPIRIN 81 MG PO TABSIndications:Archy Take 1 Tablet by mouth in the morning. 0 Active oxygen GAS Use 2 L/min(Oxygen) as directed at bedtime. 0 Active Respiratory Therapy Supplies (NEBULIZER) DEVIIndications:COPD , moderate (HCC) Use as directed. Duonebs, 3 ml's every 6 hours as needed 1 Device 0 05/21/2016 Active Multiple Vitamins-Minerals (MULTIVITAMIN WOMEN) TABSIndications:TaleSpring Take by mouth 1 Tablet daily . 0 Active nitroglycerin (NITROSTAT) 0.4 MG SUBLIndications:Record Clerk lev coronary artery disease Place 1 Tab under the tongue as needed for Pain, Chest. May repeat 3 times. If chest pain continues, call 911. 25 Tab 1 01/31/2019 Active Wheat Dextrin (BENEFIBER) powderIndications:Moderna [employer]rapeutics Take by mouth . 1 teaspoon daily [...] by mouth. 0 Active OneTouch Delica Plus [id number] :Type 2 diabetes mellitus with hemoglobin A1c [...] 90 Tablet 3 02/26/2023 4 Active Ipratropium [place] 0.03 % Nasal Solution (Atrovent)Indication s:Rhinorrhea ADMINISTER 2 SPRAYS INTO EACH NOSTRIL 4 TIMES A DAY NEEDED FOR RHINITIS. FOR RUNNY NOSE 90 mL 1 03/15/2023 Active Ipratropium-Albutero l 20-100 MCG/ACT Inhalation Aerosol Solution (Combivent Respimat)Indications :COPD, group B, by GOLD 2017 classification ([facility]) INHALE 1 PUFF BY MOUTH IN [...] mRNA, LNP-s, No Pre serve, 2-Dose Series (Dwolla) 03/25/2021,08/27/2020,08/06/2020 COVID-19, MRNA-LNP, 23-24, P F, 30 MCG/0.3 mL, 12 YRS AND ABOVE, IM ([facility] 06/14/2023 Covid-19, Mrna, Lnp-s, Pf, B ivalent, [...] Herson Patient Education Copyright 2008 - 2010 [facility] except where otherwise noted Preventing Falls: [...] types of exercise can help improve balance. Johsua chi and yoga are good examples. Heres [...] 10 times. Repeat this throughout the day. BernadetteWSO2 Patient Education Copyright 2009 - 2010 Herson [...] that mean climbing, even on a stepstool. Synergos Patient Education Copyright 2008 - 2010 [employer]os except where otherwise noted. Hi Iris Joselito, [...] BY MOUTH EVERYday 100 Tablet 3 Ipratropium [place] 0.03 % Nasal Solution (Atrovent) ADMINISTER 2 [...] E11.9 1 Kit 0 OneTouch Delica Plus [id number] USE TO TEST BLOOD SUGAR ONCE A [...] 1 PUFF BEFORE BEDTIME 12 g 1 WindGen Power ProductsTouch Verio In Vitro Strip (Glucose Blood) USE [...] Results Review. Sincerely, Daysi Pham MD 08/27/2023 [facility] Calendar (as of Visit date not found [...] your insurance company to determine what's covered. [employer] is a great tool that helps you review your medical record online, including test results, doctor notes and your health summary. You can also schedule appointments with me and other members of your care team, request prescription refills and ask for advice related to your medical conditions at [email or web address]. Diabetes: Keeping Feet Healthy Inspect your feet [...] calluses yourself. Talk to your doctor or corporate legal assistant (a doctor who specializes in foot care) [...] the area doesnt appear to be healing. [phone] [employer], [address] [place] [address], [place] [address]. All rights reserved. This information is not [...] (RECTUM) 01/24/2018 diverticulosis, poor prep, repeat 1 yr/[facility] CT CHEST W WO CONTRAST 10/08/2008 stable [...] 10/15/2016 scattered fibroglandular densities, category 1 normal [place] XCAPSL CTRC RMVL INSJ IO LENS PROSTH W/O ECP Bilateral 08/2020 REMOVE GALLBLADDER 2005 REMOVE TONSILS & ADENOIDS, UNDER 12 THROMBOENDARECTOMY W/PATCH,NECK INCISION 05/10/2002 Right Carotid Endarterectomy with artificial graft05/10/02 ([facility] - Dr. Rm) THROMBOENDARECTOMY W/PATCH,NECK INCISION [...] MCG/0.3 mL, 12 YRS AND ABOVE, IM ([employer] [employer]) 06/14/2023 Covid-19, Mrna, Lnp-s, Pf, Bivalent, [...] BY MOUTH EVERYday 100 Tablet 3 Ipratropium [place] 0.03 % Nasal Solution (Atrovent) ADMINISTER 2 [...] 6 hours as needed 1 Device 0 WindGen Power ProductsTouch Verio w/Device Kit Use once a day Dx: E11.9 1 Kit 0 DBV Technologiesuch Delica Plus [id number] USE TO TEST BLOOD SUGAR ONCE A [...] 1 PUFF BEFORE BEDTIME 12 g 1 Prepay Technologies In Vitro Strip (Glucose Blood) USE TO [...] Atherosclerotic peripheral vascular disease with intermittent claudication ([facility]) I70.219 Fatty liver K76.0 Persistent insomnia G47.00 Subclavian artery stenosis, left ([facility]) I77.1 IBS (irritable bowel syndrome) K58.9 Postmenopausal atrophic vaginitis N95.2 Chronic pain of both ankles M25.571, G89.29, M25.572 Psoriasis L40.9 Erythrocytosis D75.1 Secondary polycythemia D75.1 Aphasia as late effect of stroke I69.320 Paroxysmal atrial fibrillation ([facility]) I48.0 COPD, group B, by GOLD 2017 classification ([facility]) J44.9 Gastroesophageal reflux disease without esophagitis K21.9 Type 2 diabetes mellitus with hemoglobin A1c goal of less than 8.0% ([facility]) E11.9 Type 2 diabetes, controlled, with neuropathy ([facility]) E11.40 Anxiety state F41.1 Mesenteric artery stenosis ([facility]) K55.1 Medication Compliance: Patient is able [...] Factors Present: No fall risk factors present. Qms-Vg-pna-Go Test: Time began at 300. Patient stood from sitting position and walked approximately 10 feet, returned and sat down. Total time for hgo-wp-eqa-go test was 10 seconds. Blx-Ql-yzh-Go Test completed? Yes Gender Specific Preventative Plan: [...] COPD, group B, by GOLD 2017 classification ([facility]) - Med reconciliation completed and compliance [...] to continue present medications. Paroxysmal atrial fibrillation ([facility]) - Med reconciliation completed and compliance discussed. - pt to continue present medications. Persistent insomnia -patient does wear 2L oxygen at bedtime and with ambulation Type 2 diabetes mellitus with hemoglobin A1c goal of less than 8.0% ([facility]) Type 2 diabetes, controlled, with neuropathy ([facility]) - Med reconciliation completed and compliance [...] hemoglobin A1c goal of less than 8.0% ([facility]) - DIABETES FOOT EXAM Follow Up: [...] documented in this encounter Miscellaneous Notes * Addendum Note - Evans Earl RN [...] Choices Program 10 minutes spent in direct wvzf-kn-xvtl discussion Evans miranda RN * Pt Handout (on AVS) - Evans Earl RN - 08/27/2023 3:46 PM EDT Images from the original note were not included. [id number] All About Cholesterol Control This sheet tells [...] ability to make blood fats. Butdon?t use vsue-wtf-molcinl niacin for cholesterol problems. It isn?t regulated by the FDA. Benefits: Niacin raises HDL cholesterol. It lowers triglycerides and LDL cholesterol. [place]-3 fatty acids. These reduce the amount of triglycerides your body makes. They help to clear these lipids from the blood. [place]-3 fatty acids are found in many foods. These include salmon and other oily fish, and walnuts. Your healthcare provider may prescribe these fatty acids in capsule form. Benefits: [place]ter-3s lower triglycerides. (Note: They may increase LDL [...] you take. This includes vitamins, herbs, and btve-jem-mkejzjz medicines. Know how to deal with side [...] make you feel supported. Last Reviewed Date: 05/03/202119997284-1809 [employer]. All rights reserved. This information is not intended as a substitute for professional medical care. Always follow your healthcare professional's instructions. documented in this encounter Plan of Treatment Upcoming Encounters Date Type Department Care Team (Late st Contact Info) Description 12/13/2023 1:40 PM EDT Office Visit [address] [phone] Christin Welch PA-C [address] [place] [address] [place] [phone] 06/20/2024 1:40 PM EST Office Visit [address] [place] [phone] Daysi Pham MD [address] [place] [address] [place] [address] 08/29/2024 3:00 PM EDT Nurse Only Ancillary [address] [place] [address] [place], Nurse Annual Wellness [address] [place] [address] [place] [address] Health Maintenance Due Date Last Done Comments [...] disease with intermittent claudication (HCC) Atherosclerosis of [place] arteries of the extremities with intermittent claudication [...] hemoglobin A1c goal of less than 7.0% ([facility]) documented in this encounter Care Teams Supplies Packer Relationship Specialty Start Date End Date Daysi Pham MD [address] [place] [address] [place] [address] PCP - General Family Medicine 07/01/17 documented as of this encounter
--- OUTSIDE RECORDS SUMMARY | 2023-11-26 18:48 | External Medical Summary | Summary of Care ---
Author Name Unknown Organization [facility] Address [address] [place] [address] Phone [phone] Care Team Providers Care Assessment Director Name Role Phone Daysi Pham MD Primary Care Provide r Reason for Visit * Reason Comments Adult Annual Wellness Visit, Subsequent Visit Encounter Details Date Type Department Care Team (Late st Contact Info) Description 08/27/2023 3:00 PM EDT Nurse Only Ancillary [address] [place] [address] Nurse Zabrina [address] [place] [address] Adult Annual Wellness Visit, Subsequent Visit Allergies [...] . 0 Active ASPIRIN 81 MG PO TABSIndications:GiftLauncher Take 1 Tablet by mouth in the morning. 0 Active oxygen GAS Use 2 L/min(Oxygen) as directed at bedtime. 0 Active Respiratory Therapy Supplies (NEBULIZER) DEVIIndications:COPD , moderate (HCC) Use as directed. Duonebs, 3 ml's every 6 hours as needed 1 Device 0 05/21/2016 Active Multiple Vitamins-Minerals (MULTIVITAMIN WOMEN) TABSIndications:HE[employer] Technology Take by mouth 1 Tablet daily . 0 Active nitroglycerin (NITROSTAT) 0.4 MG SUBLIndications:Handle Turner lev coronary artery disease Place 1 Tab under the tongue as needed for Pain, Chest. May repeat 3 times. If chest pain continues, call 911. 25 Tab 1 01/31/2019 Active Wheat Dextrin (BENEFIBER) powderIndications:ClosetDash Take by mouth . 1 teaspoon daily [...] by mouth. 0 Active OneTouch Delica Plus [id number] :Type 2 diabetes mellitus with hemoglobin A1c [...] 90 Tablet 3 02/26/2023 4 Active Ipratropium [place] 0.03 % Nasal Solution (Atrovent)Indication s:Rhinorrhea ADMINISTER 2 SPRAYS INTO EACH NOSTRIL 4 TIMES A DAY NEEDED FOR RHINITIS. FOR RUNNY NOSE 90 mL 1 03/15/2023 Active Ipratropium-Albutero l 20-100 MCG/ACT Inhalation Aerosol Solution (Combivent Respimat)Indications :COPD, group B, by GOLD 2017 classification ([facility]) INHALE 1 PUFF BY MOUTH IN [...] mRNA, LNP-s, No Pre serve, 2-Dose Series (Cal[employer]mp) 03/25/2021,08/27/2020,08/06/2020 COVID-19, MRNA-LNP, 23-24, P F, 30 MCG/0.3 mL, 12 YRS AND ABOVE, IM ([facility]) 06/14/2023 Covid-19, Mrna, Lnp-s, Pf, B ivalent, [...] Herson Patient Education Copyright 2008 - 2010 [facility] except where otherwise noted Preventing Falls: Exercises [...] 10 times. Repeat this throughout the day. BernadetteWazoku Patient Education Copyright 2009 - 2010 Herson [...] that mean climbing, even on a stepstool. weartolook Patient Education Copyright 2008 - 2010 weartolook except where otherwise noted. Hi Iris Joselito, [...] BY MOUTH EVERYday 100 Tablet 3 Ipratropium [place] 0.03 % Nasal Solution (Atrovent) ADMINISTER 2 [...] E11.9 1 Kit 0 OneTouch Delica Plus [id number] USE TO TEST BLOOD SUGAR ONCE A [...] 1 PUFF BEFORE BEDTIME 12 g 1 Patton SurgicalTouch Verio In Vitro Strip (Glucose Blood) USE [...] Results Review. Sincerely, Daysi Pham MD 08/27/2023 [facility] Calendar (as of Visit date not found [...] your insurance company to determine what's covered. [employer] is a great tool that helps you review your medical record online, including test results, doctor notes and your health summary. You can also schedule appointments with me and other members of your care team, request prescription refills and ask for advice related to your medical conditions at [email or web address]. Diabetes: Keeping Feet Healthy Inspect your feet [...] calluses yourself. Talk to your doctor or german instructor (a doctor who specializes in foot care) [...] the area doesnt appear to be healing. [id number] The [employer], [address] [place] [address], [place] [address]. All rights reserved. This information is not [...] (RECTUM) 01/24/2018 diverticulosis, poor prep, repeat 1 yr/[facility] CT CHEST W WO CONTRAST 10/08/2008 stable [...] 10/15/2016 scattered fibroglandular densities, category 1 normal [place] XCAPSL CTRC RMVL INSJ IO LENS PROSTH W/O ECP Bilateral 08/2020 REMOVE GALLBLADDER 2005 REMOVE TONSILS & ADENOIDS, UNDER 12 THROMBOENDARECTOMY W/PATCH,NECK INCISION 05/10/2002 Right Carotid Endarterectomy with artificial graft05/10/[address] - Dr. Rm) THROMBOENDARECTOMY W/PATCH,NECK INCISION [...] MCG/0.3 mL, 12 YRS AND ABOVE, IM ([employer]) 06/14/2023 Covid-19, Mrna, Lnp-s, Pf, Bivalent, [...] BY MOUTH EVERYday 100 Tablet 3 Ipratropium [place] 0.03 % Nasal Solution (Atrovent) ADMINISTER 2 [...] 6 hours as needed 1 Device 0 Patton SurgicalTouch Verio w/Device Kit Use once a day Dx: E11.9 1 Kit 0 VtagOuch Delica Plus [id number] USE TO TEST BLOOD SUGAR ONCE A [...] 1 PUFF BEFORE BEDTIME 12 g 1 Reelio In Vitro Strip (Glucose Blood) USE TO [...] Atherosclerotic peripheral vascular disease with intermittent claudication ([facility]) I70.219 Fatty liver K76.0 Persistent insomnia G47.00 Subclavian artery stenosis, left ([facility]) I77.1 IBS (irritable bowel syndrome) K58.9 Postmenopausal atrophic vaginitis N95.2 Chronic pain of both ankles M25.571, G89.29, M25.572 Psoriasis L40.9 Erythrocytosis D75.1 Secondary polycythemia D75.1 Aphasia as late effect of stroke I69.320 Paroxysmal atrial fibrillation ([facility]) I48.0 COPD, group B, by GOLD 2017 classification ([facility]) J44.9 Gastroesophageal reflux disease without esophagitis K21.9 Type 2 diabetes mellitus with hemoglobin A1c goal of less than 8.0% ([facility]) E11.9 Type 2 diabetes, controlled, with neuropathy ([facility]) E11.40 Anxiety state F41.1 Mesenteric artery stenosis ([facility]) K55.1 Medication Compliance: Patient is able to [...] Factors Present: No fall risk factors present. Cky-Jj-kfv-Go Test: Time began at 300. Patient stood from sitting position and walked approximately 10 feet, returned and sat down. Total time for wda-db-xxr-go test was 10 seconds. Vwc-Ld-oxu-Go Test completed? Yes Gender Specific Preventative Plan: [...] COPD, group B, by GOLD 2017 classification ([facility]) - Med reconciliation completed and compliance discussed. [...] to continue present medications. Paroxysmal atrial fibrillation ([facility]) - Med reconciliation completed and compliance discussed. - pt to continue present medications. Persistent insomnia -patient does wear 2L oxygen at bedtime and with ambulation Type 2 diabetes mellitus with hemoglobin A1c goal of less than 8.0% ([facility]) Type 2 diabetes, controlled, with neuropathy ([facility]) - Med reconciliation completed and compliance discussed. [...] A1c goal of less than 8.0% ([facility]) - DIABETES FOOT EXAM Follow Up: Return [...] Earl RN - 08/27/2023 4:14 PM EDT [id number] Overview of Sleep Disorders Facts about sleep [...] is certified in sleep medicine by the [place] Board ofSle Medicine. Talk with your healthcare provider about finding a sleep disorder program. Last Reviewed Date: 05/03/202219999117-1895 [employer]. All rights reserved. This information is not [...] Choices Program 10 minutes spent in direct clqh-ql-ssju discussion today, Evans Earl RN * Pt Handout (on AVS) - Evans Earl RN - 08/27/2023 3:46 PM EDT Images from the original note were not included. [id number] All About Cholesterol Control This sheet tells [...] ability to make blood fats. Butdon?t use prse-bvl-gmrcsjd niacin for cholesterol problems. It isn?t regulated by the FDA. Benefits: Niacin raises HDL cholesterol. It lowers triglycerides and LDL cholesterol. [place]-3 fatty acids. These reduce the amount of triglycerides your body makes. They help to clear these lipids from the blood. [place]-3 fatty acids are found in many foods. These include salmon andother oily fish, and walnuts. Your healthcare provider may prescribe these fatty acids in capsule form. Benefits: [place]-3s lower triglycerides. (Note: They may increase LDL [...] you take. This includes vitamins, herbs, and vwpg-qfb-pnaurbj medicines. Know how to deal with side [...] make you feel supported. Last Reviewed Date: 05/03/202119997525-1294 The [employer]. All rights reserved. This information is not intended as a substitute for professional medical care. Always follow your healthcare professional's instructions. documented in this encounter Plan of Treatment Upcoming Encounters Date Type Department Care Team (Late st Contact Info) Description 12/13/2023 1:40 PM EDT Office Visit [address] [place] [phone] Christin Welch PA-C [address] [place] [address] [place] [address] 06/20/2024 1:40 PM EST Office Visit [address] [place] [phone] Daysi Pham MD [address] [place] [address] [place] [phone] 08/29/2024 3:00 PM EDT Nurse Only Ancillary [address] [place] [address] [place], Nurse Annual [address] [place] [address] Health Maintenance Due Date Last Done Comments [...] disease with intermittent claudication (HCC) Atherosclerosis of [place] arteries of the extremities with intermittent claudication [...] hemoglobin A1c goal of less than 7.0% ([facility]) documented in this encounter Care Teams Assessment Director Relationship Specialty Start Date End Date Daysi Pham MD [address] [place] [address] [place] [address] PCP - General Family Medicine 07/01/17 documented as of this encounter
--- OUTSIDE RECORDS SUMMARY | 2023-11-26 18:49 | External Medical Summary | Summary of Care ---
Author Name Unknown Organization [facility] Address [address] [place] [address] Phone [phone] Care Team Providers Care Zigzag Tunnel Elastic Operator Name Role Phone Daysi Pham MD Primary Care Provide r Reason for Visit * Reason Comments Medication Refill Encounter Details Date Type Department Care Team (Late st Contact Info) Description 06/28/2023 Refill Family Medicine [address] [phone] Daysi Pham MD [address] [place] [address] [place] [id number] Chronic coronary artery disease Allergies Active Allergy Reactions Criticality Noted Date Comments Amoxicillin Rash 11/19/2011 Levofloxacin Other (Please comment) 11/13/2013 Weakness, lightheadedness, nausea Niacin Er 01/30/2010 Burned throat. Prednisone 09/03/2012 Blood pressure went up. Bupropion Hcl 01/30/2010 documented as of this encounter (statuses as of 06/28/2023) Medications Medication Sig Dispensed Refills Start Date End Date Status VITAMIN B COMPLEX PO CAPSIndications:sup plementation Take by mouth 1 Capsule daily . 0 Active CO Q 10 100 MG PO CAPSIndications:leg pain Take by mouth 100 mg daily . 0 Active ASPIRIN 81 MG PO TABSIndications:Flexiroama MakieLab Take 1 Tablet by mouth in the morning. 0 Active oxygen GAS Use 2 L/min(Oxygen) as directed at bedtime. 0 Active Respiratory Therapy Supplies (NEBULIZER) DEVIIndications:BUNG DROPPER D, moderate (HCC) Use as directed. Duonebs, 3 ml's every 6 hours as needed 1 Device 0 7 Active Multiple Vitamins-Minerals (MULTIVITAMIN WOMEN) TABSIndications:gen eral ROVOP Take by mouth 1 Tablet daily . 0 Active nitroglycerin (NITROSTAT) 0.4 MG SUBLIndications:Chr onic coronary artery disease Place 1 Tab under the tongue as needed for Pain, Chest. May repeat 3 times. If chest pain continues, call 911. 25 Tab 1 9 Active Wheat Dextrin (BENEFIBER) powderIndications:g ma health Take by mouth . 1 teaspoon [...] Oral Capsule Take by mouth. 0 Active Probiotic Daily Oral Capsule Take 1 Capsule by mouth in the morning. 0 Active OneTouch Delica Plus [id number] s:Type 2 diabetes mellitus with hemoglobin A1c goal of less than 8.0% (HCC) USE TO TEST BLOOD SUGAR ONCE A DAY DIRECTED 100 Each 1 3 10/29/19 24 Active Atorvastatin Calcium 80 MG Oral Tablet (Lipitor)Indication s:Dyslipidemia, goal LDL below 100 TAKE ONE TABLET BY MOUTH EVERYday 100 Tablet 3 3 09/29/19 24 Active Lisinopril 5 MG Oral Tablet (Prinivil)Indicatio ns:HTN, goal below 140/90 TAKE ONE TABLET BY MOUTH EVERY DAY 90 Tablet 3 3 08/20/19 24 Active Glucose Blood In Vitro StripIndications:Ty pe 2 diabetes mellitus with hemoglobin A1c goal of less than 8.0% ([facility]) USE TO TEST BLOOD SUGAR ONCE A DAY 100 Strip 3 3 08/16/19 24 Active Isosorbide Mononitrate ER 30 MG Oral Tablet Extended Release 24 Hour (Imdur)Indications: HTN, goal below 140/90 TAKE ONE TABLET BY MOUTH EVERY MORNING 90 Tablet 3 3 02/26/20 24 Active Ipratropium [place] 0.03 % Nasal Solution (Atrovent)Indicatio ns:Rhinorrhea ADMINISTER 2 SPRAYS INTO EACH NOSTRIL 4 TIMES A DAY NEEDED FOR RHINITIS. FOR RUNNY NOSE 90 mL 1 3 Active Pregabalin 25 MG Oral Capsule (Lyrica)Indications :Type 2 diabetes, controlled, with neuropathy ([facility]) TAKE ONE CAPSULE BY MOUTH EVERY MORNING AND TAKE ONE CAPSULE BEFORE BEDTIME 60 Capsule 2 3 Active Ipratropium-Albuter ol 20-100 MCG/ACT Inhalation Aerosol Solution (Combivent Respimat)Indication s:COPD, group B, by GOLD 2017 classification ([facility]) INHALE 1 PUFF BY MOUTH IN THE MORNING, 1 PUFF AT NOON, 1 PUFF IN THE EVENING, AND 1 PUFF BEFORE BEDTIME 12 g 1 3 04/15/20 24 Active Nystatin 403607 UNIT/GM External CreamIndications:In tertrigo Apply topically to affected area 2 times a day. To affacted area for two weeks. 30 g 2 4 Active Amitriptyline HCl 10 MG Oral Tablet (Elavil)Indications :Insomnia, unspecified type TAKE 1 TABLET BY MOUTH EVERYDAY AT BEDTIME 100 Tablet 1 4 Active Clotrimazole 1 % External Cream (Antifungal (Clotrimazole))Mari cations:Candidal intertrigo Apply topically to affected area 2 times a day. Apply regimen 2x daily: this medication first, then triamcinolone 0.1% ointment over top. When heals, switch to Desitin 40% cream all day long as barrier cream to prevent recurrence. 339 g 2 4 Active Triamcinolone Acetonide 0.1 % External Ointment (Aristocort)Indicat ions:Erythema intertrigo Apply regimen 2x daily:clotrimazole 1% cream first, then this medication over top. When heals, switch to Desitin 40% cream all day long as barrier cream to prevent recurrence. 454 g 0 4 Active Doxycycline Monohydrate 100 MG Oral Capsule Take 1 pill 2x daily with or without food for 10 days. 20 Capsule 0 4 Active Apixaban 5 MG Oral Tablet [...] A DAY 200 Tablet 3 4 Active Atenolol 50 MG Oral Tablet (Tenormin)Indicatio ns:Chronic coronary artery disease TAKE ONE TABLET BY MOUTH TWICE A DAY 180 Tablet 3 3 06/28/19 24 Discontinu ed(Refill) documented as of this encounter (statuses as of 06/28/2023) Active Problems Problem Noted Date Diagnosed Date [...] as of this encounter (statuses as of 06/28/2023) Resolved Problems Problem Noted Date Diagnosed Date [...] as of this encounter (statuses as of 06/28/2023) Immunizations Name Administration Dates Next Due COVID-19 mRNA, LNP-s, No Pre serve, 2-Dose Series (Krow[employer]) 03/25/2021,08/27/2020,08/06/2020 COVID-19, MRNA-LNP, 23-24, P F, 30 MCG/0.3 mL, 12 YRS AND ABOVE, IM ([employer] / ?.??-Comirnaty) 06/14/2023 Covid-19, Mrna, Lnp-s, Pf, B ivalent, [...] Notes * Telephone Encounter - Surekha Adkins, [facility] - 06/28/2023 2:27 PM ESTSigned Prescriptions: Disp Refills Atenolol 50 MG Oral Tablet (Tenormin) 200 Ta*3 Sig: TAKE ONE TABLET BY MOUTH TWICE A DAYAuthorizing Provider: DAYSI PHAM User: SUREKHA ADKINS documented in this encounter Plan of Treatment Upcoming Encounters Date Type Department Care Team (Late st Contact Info) Description 06/30/2023 2:40 PM EST Office Visit Dermatology [address] [place] [phone] Diana Shaikh PA-C [address] [place] [address] [place] [address] 08/27/2023 3:00 PM EDT Nurse Only Ancillary [address] [place] [address] [place], Nurse Annual [address] [place] [address] 12/13/2023 1:40 PM EDT [address] [place] [phone] Christin Welch PA-C [address] [place] [address] [place] [address] 06/20/2024 1:40 PM EST Office Visit Family [address] [place] [phone] Daysi Pham MD [address] [place] [address] [place] [address] Health Maintenance Due Date Last Done Comments Alpha-1 Antitrypsin 1967 DTaP,Tdap,and Td Vaccines (2 - Td or Tdap) 10/25/2017 10/26/2007 COLONOSCOPY-ANNUAL AGES 18-100 01/24/2019 01/24/2018, 09/28/2007, 08/11/2007, Additional history exists Zoster Vaccines (3 of 3) 03/10/2019 01/13/2019, 03/03 DXA Scan 11/21/2021 11/21/2018, 11/01, 11/20/2010, Additional history exists Influenza Vaccine (FLU shot) (#1) 2023 01/20/2022, 02/06/2021, 02/06/2021, Additional history exists Depression Screening 08/26/2023 08/25/2022 Diabetic Foot Exam 08/26/2023 08/25/2022, 08/25/2021 O2 ASSESSMENT COMPLETED IN PAST YEAR FOR COPD 08/26/2023 08/25/2022 HbA1c 11/10/2023 05/12/2023, 08/01, 09/24/2021, Additional history exists Mammogram 11/19/2023 11/18/2022, 07/0 08/2022, 11/04/2022, Additional history exists Diabetic Eye Exam 02/23/2024 02/22/2023, , 07/02/2021, Additional history exists Albumin/Creatinine Ratio 03/02/202403/02/ 023, 03/09/2022, 03/17/2021, Additional history exists GFR [...] as of this encounter Visit Diagnoses Diagnosis Chronic coronary artery disease Coronary atherosclerosis of unspecified type of vessel, [place] or graft documented in this encounter Care Teams Zigzag Tunnel Elastic Operator Relationship Specialty Start Date End Date Daysi Pham MD [address] [place] [address] [place] [address] PCP - General Family Medicine 07/01/17 documented as of this encounter
--- OUTSIDE RECORDS SUMMARY | 2023-11-26 18:49 | External Medical Summary | Summary of Care ---
Author Name Unknown Organization [facility] Address [address] [facility] [place] [address] Phone [phone] Care Team Providers Care Volleyball Assembler Name Role Phone Daysi Pham MD Primary Care Provide r Reason for Visit * Reason Comments Follow Up 1 month for intertri go Encounter Details Date Type Department Care Team (Late st Contact Info) Description 06/30/2023 2:40 PM EST Office Visit Dermatology [address] [place] [address] Diana Shaikh PA-C [address] [place] [address] [place] [phone] Erythema intertrigo*; Post-inflammatory pigmentary changes; Candidal intertrigo Allergies Active Allergy Reactions Criticality Noted Date Comments Amoxicillin Rash 11/19/2011 Levofloxacin Other (Please comment) 11/13/2013 Weakness, lightheadedness, nausea Niacin Er 01/30/2010 Burned throat. Prednisone 09/03/2012 Blood pressure went up. Bupropion Hcl 01/30/2010 documented as of this encounter (statuses as of 06/30/2023) Medications Medication Sig Dispensed Refills Start Date End Date Status VITAMIN B COMPLEX PO CAPSIndications:evans pplementation Take by mouth 1 Capsule daily . 0 Active CO Q 10 100 MG PO CAPSIndications:le g pain Take by mouth 100 mg daily . 0 Active ASPIRIN 81 MG PO TABSIndications:he art health Take 1 Tablet by mouth in the morning. 0 Active oxygen GAS Use 2 L/min(Oxygen) as directed at bedtime. 0 Active Respiratory Therapy Supplies (NEBULIZER) DEVIIndications:CO PD, moderate (HCC) Use as directed. Duonebs, 3 ml's every 6 hours as needed 1 Device 0 05/21/19 17 Active Multiple Vitamins-Minerals (MULTIVITAMIN WOMEN) TABSIndications:ge neral health Take by mouth 1 Tablet daily . 0 Active nitroglycerin (NITROSTAT) 0.4 MG SUBLIndications:Ch ronic coronary artery disease Place 1 Tab under the tongue as needed for Pain, Chest. May repeat 3 times. If chest pain continues, call 911. 25 Tab 1 02/01/20 19 Active Wheat Dextrin (BENEFIBER) powderIndications: gut health Take by mouth . 1 teaspoon daily in beverage 0 Active Pomegranate 250 MG CAPSIndications:fo r circulation Take by mouth . Taking 400 mg daily 0 Active fexofenadine (ARGELIA) 180 MG TabletIndications: Non-seasonal allergic rhinitis, unspecified trigger Take 1 Tab by mouth daily. For allergies. 90 Tab 3 06/16/19 20 Active Additional Information Patient taking differently:180 mg OralDAILY PRN, Allergies, (No instructions reported), Indications: allergies, Reported on 08/21/2022 OneTouch Verio w/Device KitIndications:Typ e 2 diabetes mellitus with hemoglobin A1c goal of less than 8.0% ([facility]) Use once a day Dx: E11.9 1 Kit 0 08/09/19 21 Active Fluocinolone Acetonide 0.01 % Otic OilIndications:for [...] the morning. 0 Active OneTouch Delica Plus [id number] ns:Type 2 diabetes mellitus with hemoglobin A1c goal of less than 8.0% ([facility]) USE TO TEST BLOOD SUGAR ONCE A DAY DIRECTED 100 Each 1 10/30/19 23 024 Active Atorvastatin Calcium 80 MG Oral Tablet (Lipitor)Indicatio ns:Dyslipidemia, goal LDL below 100 TAKE ONE TABLET BY MOUTH EVERYday 100 Tablet 3 09/30/19 23 024 Active Lisinopril 5 MG Oral Tablet (Prinivil)Indicati ons:HTN, goal below 140/90 TAKE ONE TABLET BY MOUTH EVERY DAY 90 Tablet 3 07/22/19 23 024 Active Glucose Blood In Vitro StripIndications:T ype 2 diabetes mellitus with hemoglobin A1c goal of less than 8.0% ([facility]) USE TO TEST BLOOD SUGAR ONCE A DAY 100 Strip 3 06/11/19 23 024 Active Isosorbide Mononitrate ER 30 MG Oral Tablet Extended Release 24 Hour (Imdur)Indications :HTN, goal below 140/90 TAKE ONE TABLET BY MOUTH EVERY MORNING 90 Tablet 3 02/27/20 23 024 Active Ipratropium [place] 0.03 % Nasal Solution (Atrovent)Indicati ons:Rhinorrhea ADMINISTER 2 SPRAYS INTO EACH NOSTRIL 4 TIMES A DAY NEEDED FOR RHINITIS. FOR RUNNY NOSE 90 mL 1 03/15/20 23 Active Pregabalin 25 MG Oral Capsule (Lyrica)Indication s:Type 2 diabetes, controlled, with neuropathy ([facility]) TAKE ONE CAPSULE BY MOUTH EVERY MORNING AND TAKE ONE CAPSULE BEFORE BEDTIME 60 Capsule 2 03/23/20 23 Active Ipratropium-[place] rol 20-100 MCG/ACT Inhalation Aerosol Solution (Combivent Respimat)Indicatio ns:COPD, group B, by GOLD 2017 classification ([facility]) INHALE 1 PUFF BY MOUTH IN THE MORNING, 1 PUFF AT NOON, 1 PUFF IN THE EVENING, AND 1 PUFF BEFORE BEDTIME 12 g 1 04/16/20 23 024 Active Nystatin [id number] UNIT/GM External CreamIndications:I ntertrigo Apply topically to affected area 2 times a day. To affacted area for two weeks. 30 g 2 05/10/19 24 Active Amitriptyline HCl 10 MG Oral Tablet (Elavil)Indication s:Insomnia, unspecified type TAKE 1 TABLET BY MOUTH EVERYDAY AT BEDTIME 100 Tablet 1 05/26/19 24 Active Apixaban 5 MG Oral Tablet (Eliquis)Indicatio ns:Cerebrovascular disease, arteriosclerotic, post-stroke,Paroxy smal atrial fibrillation (HCC) TAKE ONE TABLET BY MOUTH TWICE A DAY 200 Tablet 1 06/14/19 24 Active Esomeprazole Magnesium 40 MG Oral Capsule Delayed ReleaseIndications :Gastroesophageal reflux disease without esophagitis Take 1 Capsule by mouth 2 times a day with morning and evening meals. 200 Capsule 1 06/14/19 24 Active Empagliflozin 10 MG Oral Tablet (Jardiance) Take 1 Tablet by mouth in the morning. 0 06/14/19 24 Active Atenolol 50 MG Oral Tablet (Tenormin)Indicati ons:Chronic coronary artery disease TAKE ONE TABLET BY MOUTH TWICE A DAY 200 Tablet 3 06/28/19 24 Active Clotrimazole 1 % External Cream (Antifungal (Clotrimazole))Ind ications:Candidal intertrigo Apply topically to affected area 2 times a day. Apply regimen 2x daily: this medication first, then triamcinolone 0.1% ointment over top. When heals, switch to Desitin 40% cream all day long as barrier cream to prevent recurrence. 339 g 2 06/02/19 24 024 Discontinued(En d of Procedure) Triamcinolone Acetonide 0.1 % External Ointment (Aristocort)Indica tions:Erythema intertrigo Apply regimen 2x daily:clotrimazol e 1% cream first, then this medication over top. When heals, switch to Desitin 40% cream all day long as barrier cream to prevent recurrence. 454 g 0 06/02/19 24 024 Discontinued(En d of Procedure) Doxycycline Monohydrate 100 MG Oral Capsule Take 1 pill 2x daily with or without food for 10 days. 20 Capsule 0 06/07/19 24 024 Discontinued documented as of this encounter (statuses as of 06/30/2023) Active Problems Problem Noted Date Diagnosed Date [...] as of this encounter (statuses as of 06/30/2023) Resolved Problems Problem Noted Date Diagnosed Date [...] as of this encounter (statuses as of 06/30/2023) Immunizations Name Administration Dates Next Due COVID-19 mRNA, LNP-s, No Pre serve, 2-Dose Series (TuneGO) 03/25/2021,08/27/2020,08/06/2020 COVID-19, MRNA-LNP, 23-24, P F, 30 MCG/0.3 mL, 12 YRS AND ABOVE, IM ([employer]-Comirnat) 06/14/2023 Covid-19, Mrna, Lnp-s, Pf, B ivalent, [...] on file documented as of this encounter Patient Instructions * Patient Instructions* Diana Shaikh PA-C - 06/30/2023 2:49 PM EST The side effects of chronic topical steroid use were discussed with patient and include but are notlimited to telangiectasia (broken blood vessels), striae (stretch cat), atrophy (thin skin), purpura (bruising), allergic contact dermatitis, acneiform eruptions and medicine addiction (rebound rash after cessation), cataracts, suppression of the bodys ability to create its own cortisol, weight gain, poor height growth, and high blood sugar. Advocated avoidance of use nears eyes (glaucoma and cataracts) and skin folds (enhanced effect = atrophy) unless otherwise directed. Advised to use the medication only as needed. Our plan will alwaysbe to use the lowest potency possible and to use a regimen that employs intermittent rather than constant use of topical steroids. If the rash clears then stop and transition to CERAVE CREAM for maintenance. documented in this encounter Progress Notes * Diana Shaikh PA-C - 06/30/2023 2:40 PM EST SUBJECTIVE: History of Present Illness: Pastora Yee is a 73 year old female seen today for follow up of intertrigo. Previous appointment date: 06/02/2023 Last attempted treatments include: clotrimazole and triamcinolone and DCN course for MSSA. Pt states that areas are much better. 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 REVIEW OF SYSTEMS: SKIN: No other new or changing moles. HEME/LYMPH: No new or enlarging lumps or bumps. CONSTITUTIONAL: No nausea, vomiting, fevers, chills, diarrhea. No recent unintended weight loss, night sweats, appetite or malaise. RESP: negative MSK/EXT: Negative or as per HPI GI: negative CV: Negative or as per HPI Rest of systems are negative or as per HPI SKIN CANCER HX: NONE Reviewed, same day as visit, 0 [facility] Dermatology lab work(s)/pathology report(s) as well as those sent by referring provider prior to seeing pt. MEDICA TIONS: Current Outpatient Medications Medication Sig Dispense Refill VITAMIN B COMPLEX PO CAPS Take by mouth 1 Capsule daily . CO Q 10 100 MG PO CAPS Take by mouth 100 mg daily . ASPIRIN 81 MG PO TABS Take 1 Tablet by mouth in the morning. oxygen GAS Use 2 L/min(Oxygen) as directed at bedtime. Respiratory Therapy Supplies (NEBULIZER) ZAIRA Use as directed. Duonebs, 3 ml's every 6 hours as needed 1 Device 0 Multiple Vitamins-Minerals (MULTIVITAMIN WOMEN) TABS Take by [...] as needed for Allergies.) 90 Tab 3 OneTouch Verio w/Device Kit Use once a day Dx: E11.9 1 Kit 0 Fluocinolone Acetonide 0.01 % Otic Oil Administer into ears once a week . On Saturdays Systane Preservative Free 0.4-0.3 % Ophthalmic Solution (Polyethyl Glyc-Propyl Glyc PF) Instill into eye 1 Drop daily as needed for Other. Vitamin D 125 MCG (5000 UT) Oral Capsule Take by mouth. Probiotic Daily Oral Capsule Take 1 Capsule by mouth in the morning. OneTouch Delica Plus [id number] USE TO TEST BLOOD SUGAR ONCE A DAY DIRECTED 100 Each 1 Atorvastatin Calcium 80 MG Oral Tablet (Lipitor) TAKE ONE TABLET BY MOUTH EVERYday 100 Tablet 3 Lisinopril 5 MG Oral Tablet (Prinivil) TAKE ONE TABLET BY MOUTH EVERY DAY 90 Tablet 3 Glucose Blood In Vitro Strip USE TO TEST BLOOD SUGAR ONCE A DAY 100 Strip 3 Isosorbide Mononitrate ER 30 MG Oral Tablet Extended Release 24 Hour (Imdur) TAKE ONE TABLET BY MOUTH EVERY MORNING 90 Tablet 3 Ipratropium [place] 0.03 % Nasal Solution (Atrovent) ADMINISTER 2 SPRAYS INTO EACH NOSTRIL 4 TIMES A DAY NEEDED FOR RHINITIS. FOR RUNNY NOSE 90 mL 1 Pregabalin 25 MG Oral Capsule (Lyrica) TAKE ONE CAPSULE BY MOUTH EVERY MORNING AND TAKE ONE CAPSULEBEFORE BEDTIME 60 Capsule 2 Ipratropium-Albuterol 20-100 MCG/ACT Inhalation Aerosol Solution (Combivent Respimat) INHALE 1 PUFFBY MOUTH IN THE MORNING, 1 PUFF AT NOON, 1 PUFF IN THE EVENING, AND 1 PUFF BEFORE BEDTIME 12 g 1 Nystatin [id number] UNIT/GM External Cream Apply topically to affected area 2 times a day. To affacted area for two weeks. 30 g 2 Amitriptyline HCl 10 MG Oral Tablet (Elavil) TAKE 1 TABLET BY MOUTH EVERYDAY AT BEDTIME 100 Tablet 1 Clotrimazole 1 % External Cream (Antifungal (Clotrimazole)) Apply topically to affected area 2 times a day. Apply regimen 2x daily: this medication first, then triamcinolone 0.1% ointment over top. When heals, switch to Desitin 40% cream all day long as barrier cream to prevent recurrence. 339 g 2 Triamcinolone Acetonide 0.1 % External Ointment (Aristocort) Apply regimen 2x daily:clotrimazole 1%cream first, then this medication over top. When heals, switch to Desitin 40% cream all day long asbarrier cream to prevent recurrence. 454 g 0 Apixaban 5 MG Oral Tablet (Eliquis) TAKE [...] MOUTH TWICE A DAY 200 Tablet 3 No current facility-administered medications for this visit. ALLERG IES: Amoxicillin, Levofloxacin, Niaspan [niacin er], Prednisone, and Zyban [bupropion hcl] OBJECT KATHY: GEN: alert, no distress, appears oriented, pleasant, and cooperative. SKIN: Detailed exam of chest, abdomen, and inguinal areas completed: Inframammary regions/inguinal/groin regions-Was well defined erythematous shiny macerate plaques with satellite lesions and 2 superficial fissures in groin creases, now post inflammatory erythematouspatches. ASSESS MENT/PLAN: 1. Candidal and erythematous intertrigo on inframammary regions/inguinal/groin regions, resolved- -D/c clotrimazole 1% cream and triamcinolone 0.1% ointment. Start to use Desitin 40% cream chronically/daily as barrier cream. -Side effects of medication discussed and treatment regimen written and printed on checkout sheet. Patient and today. Photo(s) of #1 taken, pt verbally consented to having photo(s) taken. Follow-up: as needed Applicable photos (if any) and chart reviewed by Dr. Rommel Cat. Presumed diagnoses, expected natural histories, and management options discussed with the patient at length. Questions were addressed and anticipatory guidance provided. They were instructed to contact me if additional questions, concerns, or problems develop in the interim. -There were no barriers to learning and no other pain was related to today's visit. The patient and/or person accompanying patient demonstrates understanding of the visit and treatment. Diana Shaikh PA-C 06/30/2023 7:27 AM Ref: SELF[[id number]] NO STREET ADDRESS AVAILABLE None (office) None (fax) PCP: DAYSI PHAM [address] [place] [address] [place] [address] [phone] documented in this encounter Nursing Notes * Aiyana Estes LPN - 06/30/2023 2:34 PM EST Patient identified by full name and date of . Chief Complaint Patient presents with Follow Up 1 month for intertrigo documented in this encounter Plan of Treatment Upcoming Encounters Date Type Department Care Team (Late st Contact Info) Description 08/27/2023 3:00 PM EDT Nurse Only Ancillary [address] [place] [phone] [place], Nurse [address] [place] [address] 12/13/2023 1:40 PM EDT Office Visit [address] [place] [phone] Christin Welch PA-C [address] [place] [address] [place] [phone] 06/20/2024 1:40 PM EST Office Visit [address] [place] [phone] Daysi Pham MD [address] [place] [address] [place] [phone] Health Maintenance Due Date Last Done Comments [...] 09/24/2021, Additional history exists Mammogram 11/19/2023 11/18/2022, 070 08/2022, 11/04/2022, Additional history exists Diabetic Eye [...] Not on filedocumented as of this encounter Procedures Procedure Name Priority Date/Time Associated Diagnosis Comments DERM IMAGE (SITE) Routine 06/30/2023 Erythema intertrigo Post-inflammatory pigmentary changes documented in this encounter Results * DERM IMAGE (SITE) (06/30/2023) 06/30/2023 Diana Shaikh PA-C DIGITAL PHOTOG JAZMIN documented in this encounter Visit Diagnoses Diagnosis Erythema intertrigo- Primary Other specified erythematous condition Post-inflammatory pigmentary changes Dyschromia, unspecified Candidal intertrigo Candidiasis of skin and nails documented in this encounter Care Teams Volleyball Assembler Relationship Specialty Start Date End Date Daysi Pham MD [address] [place] [address] [place] [phone] PCP - General Family Medicine 07/01/17 documented as of this encounter
--- OUTSIDE RECORDS SUMMARY | 2023-11-26 18:49 | External Medical Summary | Summary of Care ---
Author Name Unknown Organization [facility] Address [address] [place] [address] Phone [phone] Care Team Providers Care Slip Laster Name Role Phone Daysi Pham MD Primary Care Provide r Reason for Visit * Reason Onset Date Comments Appointment 06/02/2023 Encounter Details Date Type Department Care Team (Late st Contact Info) Description 06/02/2023 Telephone Dermatology [facility] [address] [place] [address] Services, Scheduling [address] [place] [address] Appointment Allergies Active Allergy Reactions Criticality Noted Date Comments Amoxicillin Rash 11/19/2011 Levofloxacin Other (Please comment) 11/13/2013 Weakness, lightheadedness, nausea Niacin Er 01/30/2010 Burned throat. Prednisone 09/03/2012 Blood pressure went up. Bupropion Hcl 01/30/2010 documented as of this encounter (statuses as of 06/16/2023) Medications Medication Sig Dispensed Refills Start Date End Date Status VITAMIN B COMPLEX PO CAPSIndications:supp lementation Take by mouth 1 Capsule daily . 0 Active CO Q 10 100 MG PO CAPSIndications:leg pain Take by mouth 100 mg daily . 0 Active ASPIRIN 81 MG PO TABSIndications:hear t health Take 1 Tablet by mouth in the morning. 0 Active oxygen GAS Use 2 L/min(Oxygen) as directed at bedtime. 0 Active Respiratory Therapy Supplies (NEBULIZER) DEVIIndications:COPD , moderate (HCC) Use as directed. Duonebs, 3 ml's every 6 hours as needed 1 Device 0 05/21/2016 Active Multiple Vitamins-Minerals (MULTIVITAMIN WOMEN) TABSIndications:Dmailer Take by mouth 1 Tablet daily . 0 Active nitroglycerin (NITROSTAT) 0.4 MG SUBLIndications:Contact Representative lev coronary artery disease Place 1 Tab under the tongue as needed for Pain, Chest. May repeat 3 times. If chest pain continues, call 911. 25 Tab 1 01/31/2019 Active Wheat Dextrin (BENEFIBER) powderIndications:Works.io Take by mouth . 1 teaspoon daily [...] the morning. 0 Active OneTouch Delica Plus [id number] :Type 2 diabetes mellitus with hemoglobin A1c goal of less than 8.0% (HCC) USE TO TEST BLOOD SUGAR ONCE A DAY DIRECTED 100 Each 1 10/29/2022 4 Active Atorvastatin Calcium 80 MG Oral Tablet (Lipitor)Indications :Dyslipidemia, goal LDL below 100 TAKE ONE TABLET BY MOUTH EVERYday 100 Tablet 3 09/29/2022 4 Active Lisinopril 5 MG Oral Tablet (Prinivil)Indication s:HTN, goal below 140/90 TAKE ONE TABLET BY MOUTH EVERY DAY 90 Tablet 3 07/21/2022 4 Active Glucose Blood In Vitro StripIndications:Typ e 2 diabetes mellitus with hemoglobin A1c goal of less than 8.0% ([facility]) USE TO TEST BLOOD SUGAR ONCE A DAY 100 Strip 3 06/11/2022 4 Active Atenolol 50 MG Oral Tablet (Tenormin)Indication s:Chronic coronary artery disease TAKE ONE TABLET BY MOUTH TWICE A DAY 180 Tablet 3 06/11/2022 4 Active Isosorbide Mononitrate ER 30 MG Oral Tablet Extended Release 24 Hour (Imdur)Indications:H TN, goal below 140/90 TAKE ONE TABLET BY MOUTH EVERY MORNING 90 Tablet 3 02/26/2023 4 Active Ipratropium [place] 0.03 % Nasal Solution (Atrovent)Indication s:Rhinorrhea ADMINISTER 2 SPRAYS INTO EACH NOSTRIL 4 TIMES A DAY NEEDED FOR RHINITIS. FOR RUNNY NOSE 90 mL 1 03/15/2023 Active Pregabalin 25 MG Oral Capsule (Lyrica)Indications: Type 2 diabetes, controlled, with neuropathy ([facility]) TAKE ONE CAPSULE BY MOUTH EVERY MORNING AND TAKE ONE CAPSULE BEFORE BEDTIME 60 Capsule 2 03/23/2023 Active Ipratropium-Albutero l 20-100 MCG/ACT Inhalation Aerosol Solution (Combivent Respimat)Indications :COPD, group B, by GOLD 2017 classification ([facility]) INHALE 1 PUFF BY MOUTH IN THE MORNING, 1 PUFF AT NOON, 1 PUFF IN THE EVENING, AND 1 PUFF BEFORE BEDTIME 12 g 1 04/16/2023 4 Active Nystatin 680465 UNIT/GM External CreamIndications:Int ertrigo Apply topically to affected area 2 times a day. To affacted area for two weeks. 30 g 2 05/10/2023 Active Amitriptyline HCl 10 MG Oral Tablet (Elavil)Indications: Insomnia, unspecified type TAKE 1 TABLET BY MOUTH EVERYDAY AT BEDTIME 100 Tablet 1 05/26/2023 Active Clotrimazole 1 % External Cream (Antifungal (Clotrimazole))Indic ations:Candidal intertrigo Apply topically to affected area 2 times a day. Apply regimen 2x daily: this medication first, then triamcinolone 0.1% ointment over top. When heals, switch to Desitin 40% cream all day long as barrier cream to prevent recurrence. 339 g 2 06/02/2023 Active Triamcinolone Acetonide 0.1 % External Ointment (Aristocort)Indicati ons:Erythema intertrigo Apply regimen 2x daily:clotrimazole 1% cream first, then this medication over top. When heals, switch to Desitin 40% cream all day long as barrier cream to prevent recurrence. 454 g 0 06/02/2023 Active documented as of this encounter (statuses as of 06/16/2023) Active Problems Problem Noted Date Diagnosed Date [...] as of this encounter (statuses as of 06/16/2023) Resolved Problems Problem Noted Date Diagnosed Date [...] as of this encounter (statuses as of 06/16/2023) Immunizations Name Administration Dates Next Due COVID-19 mRNA, LNP-s, No Pre serve, 2-Dose Series (Pfizer) 03/25/2021,08/27/2020,08/06/2020 Covid-19, Mrna, Lnp-s, Pf, B ivalent, 30 [...] Date Smoking Tobacco: Former Cigarettes 1 60 Q uit: 12/23/2018 Smokeless Tobacco: Never Comments:Started smoking age [...] encounter Miscellaneous Notes * Telephone Encounter - Chris Yousif OSA - 06/16/2023 11:14 AM EST I spoke to Pastora. Agreed to appt. * Telephone Encounter - Aiyana Estes LPN - 06/16/2023 7:46 AM EST 06/30/2023 at 2:40 PM * Telephone Encounter - Ange Ivan OSA - 06/02/2023 3:03 PM EST Pt needs a 1 m f/u. Please call when something opens. documented in this encounter Plan of Treatment Upcoming Encounters Date Type Department Care Team (Late st Contact Info) Description 06/30/2023 2:40 PM EST Office Visit Dermatology [address] [place] [id number] Diana Shaikh PA-C [address] [place] [address] [place] [id number] 08/27/2023 3:00 PM EDT Nurse Only Ancillary [address] [place] [id number] Zabrina, Nurse Annual Wellness [address] [place] [address] [place] [id number] 12/13/2023 1:40 PM EDT Office Visit [address] [phone] Christin Welch PA-C [address] [place] [address] [place] [id number] 06/20/2024 1:40 PM EST Office Visit [address] [place] [phone] Daysi Pham MD [address] [place] [address] [place] [id number] Health Maintenance Due Date Last Done Comments Alpha-1 Antitrypsin 1968 Hepatitis B (1 of 3 - Risk 3-dose series) 2009 DTaP,Tdap,and Td Vaccines (2 - Td or [...] 11/19/2023 11/18/2022, 0708/2022, 11/04/2022, Additional history exists Diabetic Eye Exam [...] filedocumented as of this encounter Care Teams Slip Laster Relationship Specialty Start Date End Date Daysi Pham MD [address] [place] [address] [place] [id number] PCP - General Family Medicine 07/01/17 documented as of this encounter
--- OUTSIDE RECORDS SUMMARY | 2023-11-26 18:49 | External Medical Summary | Summary of Care ---
Author Name Unknown Organization [facility] Address [address] [place] [address] Phone [phone] Care Team Providers Care Director Translation Name Role Phone Daysi Pham MD Primary Care Provide r Reason for Visit * Reason Comments Re-Check Encounter Details Date Type Department Care Team (Latest Contact Info) Description 06/14/2023 11:40 AM EST Office Visit Family Medicine [address] [phone] Daysi Pham MD [address] [place] [address] [place] [phone] Gastroesophageal reflux disease without esophagitis*; COPD, group B, by GOLD 2017 classification ([facility]); Type 2 diabetes, controlled, with neuropathy ([facility]); Anxiety state; HTN, goal below 140/90; Chronic coronary artery disease; Dyslipidemia, goal LDL below 100; Paroxysmal atrial fibrillation ([facility]); CEREBROVASCULAR DZ, POST-STROKE; Aphasia as late effect of stroke; Need for COVID-19 vaccine Allergies Active Allergy Reactions Criticality Noted Date Comments Amoxicillin Rash 11/19/2011 Levofloxacin Other (Please comment) 11/13/2013 Weakness, lightheadedness, nausea Niacin Er 01/30/2010 Burned throat. Prednisone 09/03/2012 Blood pressure went up. Bupropion Hcl 01/30/2010 documented as of this encounter (statuses as of 06/14/2023) Medications Medication Sig Dispensed Refills Start Date End Date Status VITAMIN B COMPLEX PO CAPSIndications:sup plementation Take by mouth 1 Capsule daily . 0 Active CO Q 10 100 MG PO CAPSIndications:leg pain Take by mouth 100 mg daily . 0 Active ASPIRIN 81 MG PO TABSIndications:[employer] Take 1 Tablet by mouth in the morning. 0 Active oxygen GAS Use 2 L/min(Oxygen) as directed at bedtime. 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 Duonebs, 3 ml's every 6 hours as needed 1 Device 0 7 Active Multiple Vitamins-Minerals (MULTIVITAMIN WOMEN) TABSIndications:[employer] Take by mouth 1 Tablet daily . 0 Active nitroglycerin (NITROSTAT) 0.4 MG SUBLIndications:Chr onic coronary artery disease Place 1 Tab under the tongue as needed for Pain, Chest. May repeat 3 times. If chest pain continues, call 911. 25 Tab 1 9 Active Wheat Dextrin (BENEFIBER) powderIndications:[employer] Take by mouth . 1 teaspoon daily [...] A1c goal of less than 8.0% ([facility]) Use once a day Dx: E11.9 [...] the morning. 0 Active OneTouch Delica Plus [id number] s:Type 2 diabetes mellitus with hemoglobin A1c goal of less than 8.0% ([facility]) USE TO TEST BLOOD SUGAR ONCE [...] A1c goal of less than 8.0% ([facility]) USE TO TEST BLOOD SUGAR ONCE A DAY 100 Strip 3 3 08/16/19 24 Active Atenolol 50 MG Oral Tablet (Tenormin)Indicatio ns:Chronic coronary artery disease TAKE ONE TABLET BY MOUTH TWICE A DAY 180 Tablet 3 3 07/06/19 24 Active Isosorbide Mononitrate ER 30 MG Oral Tablet Extended Release 24 Hour (Imdur)Indications: HTN, goal below 140/90 TAKE ONE TABLET BY MOUTH EVERY MORNING 90 Tablet 3 3 02/26/20 24 Active Ipratropium Sieper 0.03 % Nasal Solution (Atrovent)Indicatio ns:Rhinorrhea ADMINISTER 2 SPRAYS INTO EACH NOSTRIL 4 TIMES A DAY NEEDED FOR RHINITIS. FOR RUNNY NOSE 90 mL 1 3 Active Pregabalin 25 MG Oral Capsule (Lyrica)Indications :Type 2 diabetes, controlled, with neuropathy ([facility]) TAKE ONE CAPSULE BY MOUTH EVERY MORNING AND TAKE ONE CAPSULE BEFORE BEDTIME 60 Capsule 2 3 Active Ipratropium-Albuter ol 20-100 MCG/ACT Inhalation Aerosol Solution (Combivent Respimat)Indication s:COPD, group B, by GOLD 2017 classification ([facility]) INHALE 1 PUFF BY MOUTH IN THE MORNING, 1 PUFF AT NOON, 1 PUFF IN THE EVENING, AND 1 PUFF BEFORE BEDTIME 12 g 1 3 04/15/20 24 Active Nystatin 857149 UNIT/GM External CreamIndications:In tertrigo Apply topically to [...] mouth in the morning. 0 4 Active Esomeprazole Magnesium 40 MG Oral Capsule Delayed ReleaseIndications: Gastroesophageal reflux disease without esophagitis TAKE ONE CAPSULE BY MOUTH IN THE MORNING ONE HOUR BEFORE THE FIRST MEAL OF THE DAY. 100 Capsule 1 4 06/14/19 24 Discontinu ed(Refill) documented as of this encounter (statuses as of 06/14/2023) Active Problems Problem Noted Date Diagnosed Date [...] as of this encounter (statuses as of 06/14/2023) Resolved Problems Problem Noted Date Diagnosed Date [...] as of this encounter (statuses as of 06/14/2023) Immunizations Name Administration Dates Next Due COVID-19 mRNA, LNP-s, No Pre serve, 2-Dose Series ([employer]) 03/25/2021,08/27/2020,08/06/2020 COVID-19, MRNA-LNP, 23-24, P F, 30 [...] Sign Reading Time Taken Comments Blood Pressure 116/62 06/14/2023 11:46 AM EST Pulse 57 06/14/2023 11:46 AM EST Temperature 36.3 C (97.4 F) 06/14/2023 11:[address] Respiratory Rate - - Oxygen Saturation - - Inhaled Oxygen Concentration - - Weight 101.6 kg (224 lb) 06/14/2023 11:46 AM EST Height 162.6 cm (5' 4") 06/14/2023 11:46 AM EST Body Mass Index 38.45 06/14/2023 11:46 AM EST documented in this encounter Progress Notes * Daysi Pham MD - 06/14/2023 11:53 AM EST Subjective: Pastora Yee is a 73 year old female. Chief Complaint Patient presents with Re-Check HPI: Brief Clinical History Ms. Yee is a 73 year old woman last seen in Family Medicine 9 months ago (08-21-22). She is not due for eval of any conditions. Here with her . Is having a lot of heartburn despite taking Nexium once a day. She bought some Zantac OTC. Used to take ranitidine until it was discontinued. Last EGD was in 2012. Does not want to have another one now. Saw dermatology for severe rash under her breasts. Was put on doxycycline, which she is still taking. Culture grew heavy MSSA. Was also given Nystatin and triamcinolone cream. She is to start using Desitin once it clears. Her Jardiance was stopped 05/11/23 due to the yeast infection and was also having a rash in her groin folds. 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 Not currently on anything for diabetes. Metformin causes vomiting. Would like to restart Jardiance.[facility] dermatology did not feel it contributed to her rash. Got her influenza vaccine in January at [facility]. Agrees to COVID booster today. Will consider getting RSV vaccine at the pharmacy. Uses continuous oxygen for COPD. Denies any shortness of breath. Results for orders placed or performed in [...] results can be found in Results Review. Hemoglobin AIC Results: Lab Results Component Value Date/Time HEMOGLOBIN A1C - [facility] 6.8 (H) 05/12/2023 11:02 AM HEMOGLOBIN A1C - [facility] 6.5 (H) 08/11/2022 01:24 PM HEMOGLOBIN A1C - [facility] 6.5 (H) 09/24/2021 10:51 AM HEMOGLOBIN A1C - [facility] 6.1 12/29/2016 08:27 AM HEMOGLOBIN A1C - [facility] 5.7 10/20/2010 09:29 AM HEMOGLOBIN A1C - [facility] 6.0 07/03/2009 02:08 PM Basic Panel Results: Results for orders placed or performed in visit on 05/12/23 BASIC METABOLIC PANEL Result Value Ref Range BUN 19 6 - 20 mg/dL Creatinine 1.2 (H) 0.5 - 1.0 mg/dL Estimated Glomerular Filtration Rate 46 (L) >=60 mL/min Sodium 138 135 - 146 mmol/L Potassium 5.0 3.5 - 5.1 mmol/L Chloride 97 (L) 98 - 107 mmol/L CO2 30 22 - 32 mmol/L Anion Gap 11 7 - 15 mmol/L Glucose 148 (H) 70 - 120 mg/dL Calcium 9.7 8.4 - 10.2 mg/dL Lipid Panel Results: Results for orders placed or performed in visit on 03/14/19 LIPID PANEL Result Value Ref Range HOURS FASTING >8 HOURS hours Triglycerides 139 0 - 174 mg/dL Cholesterol 113 <200 mg/dL HDL Cholesterol 52 >49 mg/dL NON-HDL CHOLESTEROL 61 0 - 159 mg/dL LDL Cholesterol 33 0 - 129 mg/dL Results for orders placed or performed in visit on 05/12/23 LIPID PANEL WITH DIRECT LDL IF TG IS HIGH Result Value Ref Range Triglycerides 322 (H) <=174 mg/dL Cholesterol 146 <200 mg/dL HDL Cholesterol 32 (L) >49 mg/dL Non-HDL Cholesterol 114 <=159 mg/dL ALT Results: Lab Results Component Value Date/Time ALT - [facility] 21 05/12/2023 11:02 AM ALT - [facility] 20 08/11/2022 01:24 PM ALT - [facility] 19 09/24/2021 10:51 AM ALT - [facility] 48 (H) 12/21/2019 03:02 PM ALT - [facility] 50 (H) 03/14/2019 02:35 PM ALT - [facility] 28 08/11/2018 08:43 AM PHM: Patient Active Problem List Diagnosis Code LACUNAR STROKE > PERIPH FIELD DEFECT I69.30 ADVANCE DIRECTIVE INFORMATION Chronic coronary artery disease I25.10 Diverticulosis of colon K57.30 Lung nodule R91.1 CEREBROVASCULAR DZ, POST-STROKE I67.2, Z86.73 Osteoarthrosis M19.90 HTN, goal below 140/90 I10 Dyslipidemia, goal LDL below 100 E78.5 Bilateral carotid artery stenosis I65.23 Atherosclerotic peripheral vascular disease with intermittent claudication ([facility]) I70.219 Fatty liver K76.0 Persistent insomnia G47.00 Subclavian artery stenosis, left ([facility]) I77.1 IBS (irritable bowel syndrome) K58.9 Postmenopausal atrophic vaginitis N95.2 Chronic pain of both ankles M25.571, G89.29, M25.572 Psoriasis L40.9 Erythrocytosis D75.1 Secondary polycythemia D75.1 Aphasia as late effect of stroke I69.320 Paroxysmal atrial fibrillation ([facility]) I48.0 COPD, group B, by GOLD 2017 classification ([facility]) J44.9 Gastroesophageal reflux disease without esophagitis K21.9 Type 2 diabetes mellitus with hemoglobin A1c goal of less than 8.0% ([facility]) E11.9 Type 2 diabetes, controlled, with neuropathy ([facility]) E11.40 Anxiety state F41.1 Mesenteric artery stenosis ([facility]) K55.1 Current Outpatient Medications Medication Sig Dispense Refill [...] 1 Capsule by mouth in the morning. [employer] Delica Plus [id number] USE TO TEST BLOOD SUGAR ONCE A DAY DIRECTED 100 Each 1 Atorvastatin Calcium 80 MG Oral Tablet (Lipitor) TAKE ONE TABLET BY MOUTH EVERYday 100 Tablet 3 Lisinopril 5 MG Oral Tablet (Prinivil) TAKE ONE TABLET BY MOUTH EVERY DAY 90 Tablet 3 Glucose Blood In Vitro Strip USE TO TEST BLOOD SUGAR ONCE A DAY 100 Strip 3 Atenolol 50 MG Oral Tablet (Tenormin) TAKE ONE TABLET BY MOUTH TWICE A DAY 180 Tablet 3 Isosorbide Mononitrate ER 30 MG Oral Tablet Extended Release 24 Hour (Imdur) TAKE ONE TABLET BY MOUTH EVERY MORNING 90 Tablet 3 Ipratropium Sieper 0.03 % Nasal Solution (Atrovent) ADMINISTER 2 [...] 1 PUFF BEFORE BEDTIME 12 g 1 Esomeprazole Magnesium 40 MG Oral Capsule Delayed Release TAKE ONE CAPSULE BY MOUTH IN THE MORNING ONE HOUR BEFORE THE FIRST MEAL OF THE DAY. 100 Capsule 1 Nystatin [id number] UNIT/GM External Cream Apply topically to affected [...] cream to prevent recurrence. 454 g 0 Doxycycline Monohydrate 100 MG Oral Capsule Take 1 pill 2x daily with or without food for 10 days. 20 Capsule 0 Apixaban 5 MG Oral Tablet (Eliquis) TAKE ONE TABLET BY MOUTH TWICE A DAY 200 Tablet 1 No current facility-administered medications for this visit. Past Medical History: Diagnosis Date Calculus of [...] dyslipidemia Other osteoporosis Paroxysmal SVT (supraventricular tachycardia) AFib? diagnosed 30 yrs ago Pericardial effusion [...] (RECTUM) 01/24/2018 diverticulosis, poor prep, repeat 1 yr/[facility] CT CHEST W WO CONTRAST [...] 10/15/2016 scattered fibroglandular densities, category 1 normal TX XCAPSL CTRC RMVL INSJ IO LENS PROSTH W/O ECP Bilateral 08/2020 REMOVE GALLBLADDER 2004 REMOVE TONSILS & ADENOIDS, UNDER 12 THROMBOENDARECTOMY W/PATCH,NECK INCISION 05/10/2002 Right Carotid Endarterectomy with artificial graft05/10/02 ([facility] - Dr. Rm) THROMBOENDARECTOMY W/PATCH,NECK INCISION Left 05/14/2004 Left carotid endarterectomy by Dr. Rm THROMBOENDARECTOMY W/PATCH,NECK INCISION Right 2002 x 2 US PELVIS TRANS-ABDOMINAL 08/23/2008 Normal Social History Socioeconomic History Marital status: Spouse name: Not on file Number of children: 4 Years of education: Not on file Highest education level: Not on file Occupational History Occupation: [employer] Employer: [employer] Tobacco Use Smoking status: Former Packs/day: 1.00 Years: 60.00 Additional pack years: 0.00 Total pack years: 60.00 Types: Cigarettes Quit date: 12/23/2018 Years since quittin.4 Smokeless tobacco: Never Tobacco comments: Started smoking age - 8 Vaping Use Vaping Use: Never used Substance and Sexual Activity Alcohol use: No Drug use: No Sexual activity: Yes Partners: Male Other Topics Concern Service Not Asked Blood Transfusions Not Asked Caffeine Concern Not Asked Occupational Exposure Not Asked Hobby Hazards Not Asked Sleep Concern Not Asked Stress Concern Not Asked Weight Concern Not Asked Special Diet Not Asked Back Care Not Asked Exercise Not Asked Bike Helmet Not Asked Seat Belt Not Asked Self-Exams Yes Comment: breast Social History Narrative works at [employer] Home 1st child born with hydroceph - MR - lives at home Social Determinants of Health Financial Resource Strain: Not on file Food Insecurity: No Food Insecurity (08/25/2022) Hunger Vital Sign Worried About Running Out of Food in the Last Year: Never true Ran Out of Food in the Last Year: Never true Transportation Needs: Not on file Physical Activity: Not on file Stress: Not on file Social Connections: Not on file Intimate Partner Violence: Not on file Housing Stability: Not on file Review of patient's allergies indicates: Allergen Reactions Amoxicillin Rash Levofloxacin Other (Please comment) Weakness, lightheadedness, nausea Niaspan [Niacin Er] Burned throat. Prednisone Blood pressure went up. Zyban [Bupropion Hcl] Objective: BP 116/62 | Pulse 57 | Temp 36.3 C (97.4 F) (Tympanic) | Ht 1.626 m (5' 4") | Wt 101.6 kg (224 lb) | BMI 38.45 kg/m | BSA 2.14 m Physical Exam: General: alert, no distress, well nourished, and well developed Head: Normocephalic, No masses, lesions, tenderness or abnormalities Eye Exam: PERRLA, extraocular movements intact, conjunctiva are pink and non- injected, sclera clear Ears: External ears normal, Canals clear, TM's Normal Nose: no mucosal erythema, no mucosal edema, no purulent discharge Oropharynx: no exudate, no erythema, lips, buccal mucosa, and tongue normal, and mucous membranes are moist Neck: supple, no adenopathy, no bruits Heart: regular rate & rhythm, no murmur, and no gallops Lungs: chest symmetric with normal AP diameter, no chest deformities noted, no chest wall tenderness, lungs clear to auscultation Extremities: no edema, no clubbing, no cyanosis Neuro Exam: alert & oriented x 3 with expressive aphasia, no focal motor/sensory deficits, gaitnormal Skin: skin color, texture, turgor are normal, Nearly healed rash under bilateral breasts with just hyperpigmented skin Extensive ROS Constitutional (f/c/wt/vision/hearing): Negative Resp (cough/sob/hameed): see above hpi CV (cp/palp/fluttering/diaphoresis/hameed/pnd):see above hpi GI (n/v/d/hrtburn): see above hpi Endo (hair/cold or heat intol/ 3 p's): see above hpi Neuro (shaking/weak/fatigu/parasthesi/): see above hpi Skin (rash/easy bruis/xerosis): see above hpi Psy (si/hi/halluc/): Negative (nocturia/hesit/drib/sexual review): Negative Lymph (swollen glands/b sx's/: Negative ASSESSMENT: Gastroesophageal reflux disease without esophagitis (Primary)--uncontrolled. Increase Nexium to twice daily and can take famotidine at bedtime. Discussed EGD but declines at this time. - Esomeprazole Magnesium 40 MG Oral Capsule Delayed Release; Take 1 Capsule by mouth 2 times a day with morning and evening meals. COPD, group B, by GOLD 2017 classification ([facility])--stable. On oxygen at home. Denies recent flares. Continue Combivent. PAF (paroxysmal atrial fibrillation) ([facility])--rate controlled with atenolol 50 mg daily and anticoagulated with Eliquis. Type 2 diabetes, controlled, with neuropathy ([facility])--restart Jardiance 10 mg daily. Continue amitriptyline 10 mg daily and Lyrica 25 mg twice daily for neuropathy. Anxiety state--continue amitriptyline 10 mg daily. HTN, goal below 140/90--controlled with atenolol 25 mg daily and lisinopril 5 mg daily Chronic coronary artery disease--stable. No new cardiac symptoms.continue aspirin 81 mg daily. Dyslipidemia, goal LDL below 100--continue atorvastatin 80 mg daily. CEREBROVASCULAR DZ, POST-STROKE--continue Eliquis Aphasia as late effect of stroke Need for COVID-19 vaccine - COVID-19, MRNA-LNP, PF, 23-24, 30MCG/0.3ML, IM, 12YRS AND ABOVE ([place]) Follow Up: Return in about 6 months (around 12/13/2023) for Clinic Visit. | For: Clinic Visit PLAN: Continue present medication(s): Begin medications: Restart Jardiance. Denies having vaginal yeast infection. The rash was under herbreasts. Change doses of medication: increase Nexium to 40 mg twice daily and add famotidine at bedtime. Declines EGD. Immunization(s) ordered: COVID booter given today Schedule labs: A1C, CMP, and lipid panel prior to next visit Follow up: in 6 month(s). Daysi Pham MD documented in this encounter Nursing Notes * Leila Alvarenga LPN - 06/14/2023 11:45 AM EST Recheck A lot of acid reflux/ gas pains Using Nexium. Worse at night before bed. documented in this encounter Plan of Treatment Upcoming Encounters Date Type Department Care Team (Late st Contact Info) Description 06/30/2023 2:40 PM EST Office Visit Dermatology [address] [place] [phone] Diana Shaikh PA-C [address] [place] [address] [place] [phone] 08/27/2023 3:00 PM EDT Nurse Only Ancillary [address] [place] [phone] [place], Nurse [address] [place] [phone] 12/13/2023 1:40 PM EDT Office Visit Family Medicine [address] [place] [phone] Christin Welch PA-C [address] [place] [address] [place] [phone] 06/20/2024 1:40 PM EST Office Visit Family [address] [place] [phone] Daysi Pham MD [address] [place] [address] [place] [phone] Scheduled Orders Name Type Priority Associated Diagnoses Orde r Schedule HEMOGLOBIN A1C Lab Routine Type 2 diabetes, controlled, with neuropathy (HCC) Expected: 11/12/2023 (Approximate), Expires: 06/13/2024 COMPREHENSIVE METABOLIC PANEL Lab Routine Type 2 diabetes, controlled, with neuropathy (HCC) Dyslipidemia, goal LDL below 100 Expected: 11/12/2023 (Approximate), Expires: 06/13/2024 LIPID PANEL WITH DIRECT LDL IF TG IS HIGH Lab Routine Dyslipidemia, goal LDL below 100 Expected: 11/12/2023 (Approximate), Expires: 06/14/2024 Health Maintenance Due Date Last Done Comments [...] as of this encounter Visit Diagnoses Diagnosis Gastroesophageal reflux disease without esophagitis- Primary Esophageal reflux COPD, group B, by GOLD 2017 classification ([facility]) Type 2 diabetes, controlled, with neuropathy ([facility]) Type II or unspecified type diabetes mellitus with neurological manifestations, not stated as uncontrolled Anxiety state Anxiety state, unspecified HTN, goal below 140/90 Unspecified essential hypertension Chronic coronary artery disease Coronary atherosclerosis of unspecified type of vessel, [place] or graft Dyslipidemia, goal LDL below 100 Other and unspecified hyperlipidemia Paroxysmal atrial fibrillation (HCC) Atrial fibrillation CEREBROVASCULAR DZ, POST-STROKE Cerebral atherosclerosis Aphasia as late effect of stroke Aphasia, late effect of cerebrovascular disease Need for COVID-19 vaccine documented in this encounter Care Teams Director Translation Relationship Specialty Start Date End Date Daysi Pham MD [address] [place] [address] [place] [phone] PCP - General Family Medicine 07/01/17 documented as of this encounter
--- OUTSIDE RECORDS SUMMARY | 2023-11-26 18:49 | External Medical Summary | Summary of Care ---
Author Name Unknown Organization [facility] Address [address] [place] [address] Phone [phone] Care Team Providers Care Cleaning Crew Member Name Role Phone Daysi Pham MD Primary Care Provide r Encounter Details Date Type Department Care Team (Late st Contact Info) Description 07/29/2023 Population Health External Data Unspecified Department Allergies Active Allergy Reactions Criticality Noted Date Comments Amoxicillin Rash 11/19/2011 Levofloxacin Other (Please comment) 11/13/2013 Weakness, lightheadedness, nausea Niacin Er 01/30/2010 Burned throat. Prednisone 09/03/2012 Blood pressure went up. Bupropion Hcl 01/30/2010 documented as of this encounter (statuses as of 08/03/2023) Medications Medication Sig Dispensed Refills Start Date [...] 0 05/21/2016 Active Multiple Vitamins-Minerals (MULTIVITAMIN WOMEN) TABSIndications:gene ral health Take by mouth 1 Tablet daily . 0 Active nitroglycerin (NITROSTAT) 0.4 MG SUBLIndications:Java Portal Developer lev coronary artery disease Place 1 Tab under the tongue as needed for Pain, Chest. May repeat 3 times. If chest pain continues, call 911. 25 Tab 1 01/31/2019 Active Wheat Dextrin (BENEFIBER) powderIndications:[employer]onto[employer] Take by mouth . 1 teaspoon daily [...] hemoglobin A1c goal of less than 8.0% ([facility]) Use once a day Dx: E11.9 1 [...] by mouth. 0 Active OneTouch Delica Plus [id number] :Type 2 diabetes mellitus with hemoglobin A1c [...] hemoglobin A1c goal of less than 8.0% ([facility]) USE TO TEST BLOOD SUGAR ONCE A DAY 100 Strip 3 06/11/2022 4 Active Isosorbide Mononitrate ER 30 MG Oral Tablet Extended Release 24 Hour (Imdur)Indications:H TN, goal below 140/90 TAKE ONE TABLET BY MOUTH EVERY MORNING 90 Tablet 3 02/26/2023 4 Active Ipratropium [place] 0.03 % Nasal Solution (Atrovent)Indication s:Rhinorrhea ADMINISTER 2 SPRAYS INTO EACH NOSTRIL 4 TIMES A DAY NEEDED FOR RHINITIS. FOR RUNNY NOSE 90 mL 1 03/15/2023 Active Ipratropium-Albutero l 20-100 MCG/ACT Inhalation Aerosol Solution (Combivent Respimat)Indications :COPD, group B, by GOLD 2017 classification ([facility]) INHALE 1 PUFF BY MOUTH IN THE [...] (Lyrica)Indications: Type 2 diabetes, controlled, with neuropathy ([facility]) TAKE ONE CAPSULE BY MOUTH EVERY MORNING AND TAKE ONE CAPSULE BEFORE BEDTIME 60 Capsule 2 07/08/2023 Active documented as of this encounter (statuses as of 08/03/2023) Active Problems Problem Noted Date Diagnosed Date [...] as of this encounter (statuses as of 08/03/2023) Resolved Problems Problem Noted Date Diagnosed Date [...] as of this encounter (statuses as of 08/03/2023) Immunizations Name Administration Dates Next Due COVID-19 mRNA, LNP-s, No Pre serve, 2-Dose Series ([employer]) 03/25/2021,08/27/2020,08/06/2020 COVID-19, MRNA-LNP, 23-24, P F, 30 [...] 08/27/2023 3:00 PM EDT Nurse Only Ancillary [address] [place] [phone] [place], Nurse Annual Wellness [address] [place] [address] [place] [phone] 12/13/2023 1:40 PM EDT Office Visit [address] [place] [phone] Christin Welch PA-C [address] [place] [address] [place] [phone] 06/20/2024 1:40 PM EST Office Visit [address] [phone] Daysi Pham MD [address] [place] [address] [place] [phone] Health Maintenance Due Date Last Done Comments [...] filedocumented as of this encounter Care Teams Cleaning Crew Member Relationship Specialty Start Date End Date Daysi Pham MD [address] [place] [address] [place] [phone] PCP - General Family Medicine 07/01/17 documented as of this encounter
--- OUTSIDE RECORDS SUMMARY | 2023-11-26 18:49 | External Medical Summary | Summary of Care ---
Author Name Unknown Organization [facility] Address [address] [facility] [place] [address] Phone [phone] Care Team Providers Care Belt Brander Name Role Phone Daysi Pham MD Primary Care Provide r Reason for Visit * Reason Comments Follow Up 1 month for intertri go Encounter Details Date Type Department Care Team (Late st Contact Info) Description 06/30/2023 2:40 PM EST Office Visit Dermatology [address] [place] [phone] Diana Shaikh PA-C [address] [place] [address] [place] [phone] Erythema intertrigo*; Post-inflammatory pigmentary changes; Candidal intertrigo [...] hemoglobin A1c goal of less than 8.0% ([facility]) Use once a day Dx: [...] the morning. 0 Active OneTouch Delica Plus [id number] ns:Type 2 diabetes mellitus with hemoglobin A1c goal of less than 8.0% ([facility]) USE TO TEST BLOOD SUGAR [...] hemoglobin A1c goal of less than 8.0% ([facility]) USE TO TEST BLOOD SUGAR ONCE A DAY 100 Strip 3 06/11/19 23 024 Active Isosorbide Mononitrate ER 30 MG Oral Tablet Extended Release 24 Hour (Imdur)Indications :HTN, goal below 140/90 TAKE ONE TABLET BY MOUTH EVERY MORNING 90 Tablet 3 02/27/20 23 024 Active Ipratropium [place] 0.03 % Nasal Solution (Atrovent)Indicati ons:Rhinorrhea ADMINISTER 2 SPRAYS INTO EACH NOSTRIL 4 TIMES A DAY NEEDED FOR RHINITIS. FOR RUNNY NOSE 90 mL 1 03/15/20 23 Active Pregabalin 25 MG Oral Capsule (Lyrica)Indication s:Type 2 diabetes, controlled, with neuropathy ([facility]) TAKE ONE CAPSULE BY MOUTH EVERY MORNING AND TAKE ONE CAPSULE BEFORE BEDTIME 60 Capsule 2 03/23/20 23 Active Ipratropium-Alb[place] rol 20-100 MCG/ACT Inhalation Aerosol Solution (Combivent Respimat)Indicatio ns:COPD, group B, by GOLD 2017 classification ([facility]) INHALE 1 PUFF BY MOUTH IN THE MORNING, 1 PUFF AT NOON, 1 PUFF IN THE EVENING, AND 1 PUFF BEFORE BEDTIME 12 g 1 04/16/20 23 024 Active Nystatin 814988 UNIT/GM External CreamIndications:I ntertrigo Apply topically to [...] mRNA, LNP-s, No Pre serve, 2-Dose Series ([employer]) 03/25/2021,08/27/2020,08/06/2020 COVID-19, MRNA-LNP, 23-24, P F, 30 MCG/0.3 mL, 12 YRS AND ABOVE, IM ([employer]) 06/14/2023 Covid-19, Mrna, Lnp-s, Pf, B ivalent, [...] encounter Patient Instructions * Patient Instructions* Diana Shaikh, PA-C - 06/30/2023 2:49 PM EST The [...] documented in this encounter Progress Notes * Rommel Cta MD - 06/30/2023 4:01 PM EST I have seen and examined the patient via teledermatology review of chart note and photos with Diana Shaikh PA-C. I have reviewed and agree with the assessment and plan. * Diana Shaikh PA-C - 06/30/2023 2:40 PM EST SUBJECTIVE: History of Present Illness: Pastora Yee is a 73 year old female seen today for follow up of intertrigo. Previous appointment date: 06/02/2023 Last attempted treatments include: clotrimazole and triamcinolone and DCN course for MSSA. Pt states that areas are much better. 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 REVIEW OF SYSTEMS: SKIN: No [...] NONE Reviewed, same day as visit, 0 [facility] Dermatology lab work(s)/pathology report(s) as well as [...] mouth in the morning. OneTouch Delica Plus [id number] USE TO TEST BLOOD SUGAR ONCE A [...] MOUTH EVERY MORNING 90 Tablet 3 Ipratropium [place] 0.03 % Nasal Solution (Atrovent) ADMINISTER 2 [...] PUFF BEFORE BEDTIME 12 g 1 Nystatin 680019 UNIT/GM External Cream Apply topically to affected [...] Diana Shaikh PA-C 06/30/2023 7:27 AM Ref: SELF[[id number]] NO STREET ADDRESS AVAILABLE None (office) None (fax) PCP: DAYSI PHAM [address] [place] [address] [place] [phone] documented in this encounter Nursing Notes * Aiyana Estes LPN - 06/30/2023 2:34 PM EST Patient identified by full name and date of . Chief Complaint Patient presents with Follow Up 1 month for intertrigo documented in this encounter Plan of Treatment Upcoming Encounters Date Type Department Care Team (Late st Contact Info) Description 08/27/2023 3:00 PM EDT Nurse Only Ancillary [address] [place] [phone] [place]an[place]ley, Nurse Annual Wellness [address] [place] [address] [place] [address] 12/13/2023 1:40 PM EDT Office Visit [address] [phone] Christin Welch PA-C [address] [place] [address] [place] [address] 06/20/2024 1:40 PM EST Office Visit [address] [phone] Daysi Pham MD [address] [place] [address] [place] [phone] Health Maintenance Due Date Last Done Comments [...] nails documented in this encounter Care Teams Belt Brander Relationship Specialty Start Date End Date Daysi Pham MD [address] [place] [address] [place] [address] PCP - General Family Medicine 07/01/17 documented as of this encounter
--- OUTSIDE RECORDS SUMMARY | 2023-11-26 18:49 | External Medical Summary | Summary of Care ---
Author Name Unknown Organization [facility] Address [address] [place] [address] Phone [phone] Care Team Providers Care Coil Tier Name Role Phone Daysi Bustamante MD Primary Care Provide r Reason for Visit * Reason Comments Medication Refill Encounter Details Date Type Department Care Team (Late st Contact Info) Description 06/13/2023 Refill Family Medicine [address] [phone] Florentin Sloan MD [address] [place] [address] [place] [phone] CEREBROVASCULAR DZ, POST-STROKE; Paroxysmal atrial fibrillation (HCC) Allergies Active Allergy Reactions Criticality Noted [...] . 0 Active ASPIRIN 81 MG PO TABSIndications:[email or web address] Take 1 Tablet by mouth in the morning. 0 Active oxygen GAS Use 2 L/min(Oxygen) as directed at bedtime. 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 Duonebs, 3 ml's every 6 hours as needed 1 Device 0 7 Active Multiple Vitamins-Minerals (MULTIVITAMIN WOMEN) TABSIndications:[employer] Take by mouth 1 Tablet daily . 0 Active nitroglycerin (NITROSTAT) 0.4 MG SUBLIndications:Chr onic coronary artery disease Place 1 Tab under the tongue as needed for Pain, Chest. May repeat 3 times. If chest pain continues, call 911. 25 Tab 1 9 Active Additional Information Patient not taking.Reported on 09/01/2022 Wheat Dextrin (BENEFIBER) powderIndications:g nm health Take by mouth . 1 teaspoon [...] hemoglobin A1c goal of less than 8.0% ([facility]) Use once a day Dx: E11.9 1 [...] the morning. 0 Active OneTouch Delica Plus [id number] s:Type 2 diabetes mellitus with hemoglobin A1c [...] hemoglobin A1c goal of less than 8.0% ([facility]) USE TO TEST BLOOD SUGAR ONCE A [...] Tablet 3 3 02/26/20 24 Active Ipratropium [place] 0.03 % Nasal Solution (Atrovent)Indicatio ns:Rhinorrhea ADMINISTER 2 SPRAYS INTO EACH NOSTRIL 4 TIMES A DAY NEEDED FOR RHINITIS. FOR RUNNY NOSE 90 mL 1 3 Active Pregabalin 25 MG Oral Capsule (Lyrica)Indications :Type 2 diabetes, controlled, with neuropathy ([facility]) TAKE ONE CAPSULE BY MOUTH EVERY MORNING AND TAKE ONE CAPSULE BEFORE BEDTIME 60 Capsule 2 3 Active Ipratropium-Albuter ol 20-100 MCG/ACT Inhalation Aerosol Solution (Combivent Respimat)Indication s:COPD, group B, by GOLD 2017 classification ([facility]) INHALE 1 PUFF BY MOUTH IN THE MORNING, 1 PUFF AT NOON, 1 PUFF IN THE EVENING, AND 1 PUFF BEFORE BEDTIME 12 g 1 3 04/15/20 24 Active Esomeprazole Magnesium 40 MG Oral Capsule Delayed ReleaseIndications: Gastroesophageal reflux disease without esophagitis TAKE ONE CAPSULE BY MOUTH IN THE MORNING ONE HOUR BEFORE THE FIRST MEAL OF THE DAY. 100 Capsule 1 4 Active Nystatin 318517 UNIT/GM External CreamIndications:In tertrigo Apply topically to [...] A DAY 200 Tablet 1 4 Active Apixaban 5 MG Oral Tablet (Eliquis)Indication s:Cerebrovascular disease, arteriosclerotic, post-stroke,Paroxys mal atrial fibrillation (HCC) TAKE ONE TABLET BY MOUTH TWICE A DAY 180 Tablet 0 3 06/13/19 24 Discontinu ed(Refill) documented as of this [...] mRNA, LNP-s, No Pre serve, 2-Dose Series ([employer]) 03/25/2021,08/27/2020,08/06/2020 Covid-19, Mrna, Lnp-s, Pf, B ivalent, 30 Mcg, IM, 12 yrs and above ([employer] [place]) 04/28/2022 H1N1 2009 Influenza, IM 05/15/2009 Pneumococcal [...] Notes * Telephone Encounter - Surekha Adkins, [facility] - 06/14/2023 11:16 AM ESTSigned Prescriptions: Disp Refills Apixaban 5 MG Oral Tablet (Eliquis) 200 Ta*1 Sig: TAKE ONE TABLET BY MOUTH TWICE A DAYAuthorizing Provider: DAYSI BUSTAMANTEOrdering User: SUREKHA ADKINS documented in this encounter Plan of Treatment Upcoming Encounters Date Type Department Care Team (Late st Contact Info) Description 06/14/2023 11:40 AM EST Office Visit Family Medicine [address] [place] [phone] Daysi Bustamante MD [address] [place] [address] [place] [address] Arrived 06/30/2023 2:40 PM EST Office Visit Dermatology [address] [place] [phone] Diana Shaikh PA-C [address] [place] [address] [place] [address] 08/27/2023 3:00 PM EDT Nurse Only Ancillary [address] [place] [address] [place], Nurse Annual Wellness [address] [place] [address] [place] [address] Health Maintenance Due Date Last Done Comments Alpha-1 Antitrypsin 1967 Hepatitis B (1 of 3 - Risk 3-dose series) 2009 DTaP,Tdap,and Td Vaccines (2 - Td or Tdap) 10/25/2017 10/26/2007 COLONOSCOPY-ANNUAL AGES 18-100 01/24/2019 01/24/2018, 09/28/2007, 08/11/2007, Additional history exists Zoster Vaccines (3 of 3) 03/10/2019 01/13/2019, 03/03 DXA Scan 11/21/2021 11/21/2018, 11/01, 11/20/2010, Additional history exists COVID-19 Vaccine ( season) 2023 04/28/2022, 03/25/2021, 08/27/2020, Additional history exists Influenza Vaccine (FLU shot) [...] Vaccine: 65+ Years Completed 06/30/2016, 11/01/2014, 05/03/2003 GARDASIL-HPV IMMUNIZATION SERIES Aged Out No longer eligible based on patient's age to complete this topic MENINGOCOCCAL (MENACTRA/MENVEO) Aged Out No longer eligible based on patient's age to complete this topic documented as of this encounter Medical Devices Not on filedocumented as of this encounter Visit Diagnoses Diagnosis CEREBROVASCULAR DZ, POST-STROKE Cerebral atherosclerosis Paroxysmal atrial fibrillation (HCC) Atrial fibrillation documented in this encounter Care Teams Coil Tier Relationship Specialty Start Date End Date Daysi Bustamante MD [address] [place] [address] [place] [phone] PCP - General Family Medicine 07/01/17 documented as of this encounter
--- OUTSIDE RECORDS SUMMARY | 2023-11-26 18:49 | External Medical Summary | Summary of Care ---
Author Name Unknown Organization [facility] Address [address] [place] [address] Phone [phone] Care Team Providers Care Supervisor Contact And Service Clerks Name Role Phone Ketan Pham MD Primary Care Provide r Reason for Visit * Reason Comments Medication Refill Encounter Details Date Type Department Care Team (Late st Contact Info) Description 07/07/2023 Refill Family Medicine [address] [phone] Ketan Pham MD [address] [place] [address] [place] [phone] Type 2 diabetes, controlled, with neuropathy (HCC) Allergies Active Allergy Reactions Criticality Noted Date Comments Amoxicillin Rash 11/19/2011 Levofloxacin Other (Please comment) 11/13/2013 Weakness, lightheadedness, nausea Niacin Er 01/30/2010 Burned throat. Prednisone 09/03/2012 Blood pressure went up. Bupropion Hcl 01/30/2010 documented as of this encounter (statuses as of 07/08/2023) Medications Medication Sig Dispensed Refills Start Date End Date Status VITAMIN B COMPLEX PO CAPSIndications:sup plementation Take by mouth 1 Capsule daily . 0 Active CO Q 10 100 MG PO CAPSIndications:leg pain Take by mouth 100 mg daily . 0 Active ASPIRIN 81 MG PO TABSIndications:[facility] Tiltap Take 1 Tablet by mouth in the morning. 0 Active oxygen GAS Use 2 L/min(Oxygen) as directed at bedtime. 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 Duonebs, 3 ml's every 6 hours as needed 1 Device 0 7 Active Multiple Vitamins-Minerals (MULTIVITAMIN WOMEN) TABSIndications:IFTTT Take by mouth 1 Tablet daily . 0 Active nitroglycerin (NITROSTAT) 0.4 MG SUBLIndications:Chr onic coronary artery disease Place 1 Tab under the tongue as needed for Pain, Chest. May repeat 3 times. If chest pain continues, call 911. 25 Tab 1 9 Active Wheat Dextrin (BENEFIBER) powderIndications:g md Tiltap Take by mouth . 1 teaspoon daily [...] the morning. 0 Active OneTouch Delica Plus [id number] s:Type 2 diabetes mellitus with hemoglobin A1c [...] than 8.0% ([facility]) USE TO TEST BLOOD SUGAR ONCE A DAY 100 Strip 3 3 08/16/19 24 Active Isosorbide Mononitrate ER 30 MG Oral Tablet Extended Release 24 Hour (Imdur)Indications: HTN, goal below 140/90 TAKE ONE TABLET BY MOUTH EVERY MORNING 90 Tablet 3 3 02/26/20 24 Active Ipratropium [place] 0.03 % Nasal Solution (Atrovent)Indicatio ns:Rhinorrhea ADMINISTER [...] g 1 3 04/15/20 24 Active Nystatin 381345 UNIT/GM External CreamIndications:In tertrigo Apply topically to affected area 2 times a day. To affacted area for two weeks. 30 g 2 4 Active Amitriptyline HCl 10 MG Oral Tablet (Elavil)Indications :Insomnia, unspecified type TAKE 1 TABLET BY MOUTH EVERYDAY AT BEDTIME 100 Tablet 1 4 Active Apixaban 5 MG Oral Tablet (Eliquis)Indication s:Cerebrovascular disease, arteriosclerotic, post-stroke,Paroxys mal atrial fibrillation ([facility]) TAKE ONE TABLET BY MOUTH TWICE [...] CAPSULE BEFORE BEDTIME 60 Capsule 2 3 07/07/19 24 Discontinu ed(Refill) documented as of this encounter (statuses as of 07/08/2023) Active Problems Problem Noted Date Diagnosed Date [...] as of this encounter (statuses as of 07/08/2023) Resolved Problems Problem Noted Date Diagnosed Date [...] as of this encounter (statuses as of 07/08/2023) Immunizations Name Administration Dates Next Due COVID-19 mRNA, LNP-s, No Pre serve, 2-Dose Series ([employer]) 03/25/2021,08/27/2020,08/06/2020 COVID-19, MRNA-LNP, 23-24, P F, 30 MCG/0.3 mL, 12 YRS AND ABOVE, IM ([employer] [facility] 06/14/2023 Covid-19, Mrna, Lnp-s, Pf, B ivalent, 30 Mcg, IM, 12 yrs and above ([employer]) 04/28/2022 H1N1 2009 Influenza, IM 05/15/2009 Pneumococcal [...] encounter Miscellaneous Notes * Telephone Encounter - Ketan Pham MD - 07/08/2023 2:37 PM EST Signed Prescriptions: Disp Refills Pregabalin 25 MG Oral Capsule (Lyrica) 60 Cap*2 Sig: TAKE ONE CAPSULE BY MOUTH EVERY MORNING AND TAKE ONE CAPSULE BEFORE BEDTIME Authorizing Provider: KETAN PHAM * Telephone Encounter - Elia Barros [facility] - 07/08/2023 2:21 PM EST Pending Prescriptions: Disp Refills Pregabalin 25 MG Oral Capsule (Lyrica) 60 Cap*2 Sig: TAKE ONE CAPSULE BY MOUTH EVERY MORNING AND TAKE ONE CAPSULE BEFORE BEDTIME * Telephone Encounter - Elia Barros [facility] - 07/08/2023 2:20 PM EST I have reviewed the patients controlled substance dispensing history in the Prescription Drug Monitoring Program in compliance with the [facility] regulations before prescribing a controlled substance. PDMP checked on 07/08/2023. Pending Prescriptions: Disp Refills Pregabalin 25 MG Oral Capsule (Lyrica) 60 Cap*2 Sig: TAKE ONE CAPSULE BY MOUTH EVERY MORNING AND TAKE ONE CAPSULE BEFORE BEDTIME Last Visit: 06/14/2023 (in office), Visit date not found (telemedicine) Next Visit: 12/13/2023 Date medication was last filled: 05/25/23 Date medication is due for refill: 06/23/23 Pharmacy: [facility] Is this request for a controlled substance? Yes and Urine Drug Screen Not completed Toxicology results: No results found. However, due to the size of the patient record, not all encounters were searched.Please check Results Review for a complete set of results. Please approve if appropriate. Thanks, Elia Barros, PharmD Clinical Pharmacist [facility] ([facility]) (formerly Telepharmacy) [phone] 07/08/2023, 2:20 PM documented in this encounter Plan of Treatment Upcoming Encounters Date Type Department Care Team (Late st Contact Info) Description 08/27/2023 3:00 PM EDT Nurse Only Ancillary [address] [place] [address] [place], Nurse [address] [place] [address] 12/13/2023 1:40 PM EDT Office Visit [address] [place] [phone] Christin Welch PA-C [address] [place] [address] [place] [address] 06/20/2024 1:40 PM EST Office Visit [address] [place] [phone] Ketan Pham MD [address] [place] [address] [place] [phone] Health Maintenance Due Date Last Done Comments [...] , 07/02/2021, Additional history exists Albumin/Creatinine Ratio 03/02/20242 023, 03/09/2022, 03/17/2021, Additional history exists GFR [...] uncontrolled documented in this encounter Care Teams Supervisor Contact And Service Clerks Relationship Specialty Start Date End Date Ketan Pham MD [address] [place] [address] [place] [phone] PCP - General Family Medicine 07/01/17 documented as of this encounter
--- OUTSIDE RECORDS SUMMARY | 2023-11-26 18:49 | External Medical Summary | Summary of Care ---
Author Name Unknown Organization [facility] Address [address] [place] [address] Phone [phone] Care Team Providers Care Technical Services Manager Name Role Phone Daysi Pham MD Primary Care Provide r Encounter Details Date Type Department Care Team (Late st Contact Info) Description 06/22/2023 Population Health External Data Unspecified Department Allergies Active Allergy Reactions Criticality Noted Date Comments Amoxicillin Rash 11/19/2011 Levofloxacin Other (Please comment) 11/13/2013 Weakness, lightheadedness, nausea Niacin Er 01/30/2010 Burned throat. Prednisone 09/03/2012 Blood pressure went up. Bupropion Hcl 01/30/2010 documented as of this encounter (statuses as of 06/23/2023) Medications Medication Sig Dispensed Refills Start Date End Date Status VITAMIN B COMPLEX PO CAPSIndications:sup plementation Take by mouth 1 Capsule daily . 0 Active CO Q 10 100 MG PO CAPSIndications:leg pain Take by mouth 100 mg daily . 0 Active ASPIRIN 81 MG PO TABSIndications:hea rt health Take 1 Tablet by mouth in the morning. 0 Active oxygen GAS Use 2 L/min(Oxygen) as directed at bedtime. 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 Duonebs, 3 ml's every 6 hours as needed 1 Device 0 05/21/2016 Active Multiple Vitamins-Minerals (MULTIVITAMIN WOMEN) TABSIndications:gen eral Parastructure Take by mouth 1 Tablet daily . 0 Active nitroglycerin (NITROSTAT) 0.4 MG SUBLIndications:Chr onic coronary artery disease Place 1 Tab under the tongue as needed for Pain, Chest. May repeat 3 times. If chest pain continues, call 911. 25 Tab 1 01/31/2019 Active Wheat Dextrin (BENEFIBER) powderIndications:g nd health Take by mouth . 1 teaspoon [...] the morning. 0 Active OneTouch Delica Plus [id number] s:Type 2 diabetes mellitus with hemoglobin A1c [...] 07/21/2022 4 Active Glucose Blood In Vitro StripIndications:Ty pe 2 diabetes mellitus with hemoglobin A1c goal of less than 8.0% ([facility]) USE TO TEST BLOOD SUGAR ONCE A [...] 90 Tablet 3 02/26/2023 4 Active Ipratropium [place] 0.03 % Nasal Solution (Atrovent)Indicatio ns:Rhinorrhea ADMINISTER 2 SPRAYS INTO EACH NOSTRIL 4 TIMES A DAY NEEDED FOR RHINITIS. FOR RUNNY NOSE 90 mL 1 03/15/2023 Active Pregabalin 25 MG Oral Capsule (Lyrica)Indications :Type 2 diabetes, controlled, with neuropathy ([facility]) TAKE ONE CAPSULE BY MOUTH EVERY MORNING AND TAKE ONE CAPSULE BEFORE BEDTIME 60 Capsule 2 03/23/2023 Active Ipratropium-Albuter ol 20-100 MCG/ACT Inhalation Aerosol Solution (Combivent Respimat)Indication s:COPD, group B, by GOLD 2017 classification ([facility]) INHALE 1 PUFF BY MOUTH IN THE MORNING, 1 PUFF AT NOON, 1 PUFF IN THE EVENING, AND 1 PUFF BEFORE BEDTIME 12 g 1 04/16/2023 4 Active Nystatin 411291 UNIT/GM External CreamIndications:In tertrigo Apply topically to [...] prevent recurrence. 454 g 0 06/02/2023 Active Doxycycline Monohydrate 100 MG Oral Capsule Take 1 pill 2x daily with or without food for 10 days. 20 Capsule 0 06/07/2023 Active Apixaban 5 MG Oral Tablet (Eliquis)Indication [...] mouth in the morning. 0 06/14/2023 Active documented as of this encounter (statuses as of 06/23/2023) Active Problems Problem Noted Date Diagnosed Date [...] as of this encounter (statuses as of 06/23/2023) Resolved Problems Problem Noted Date Diagnosed Date [...] as of this encounter (statuses as of 06/23/2023) Immunizations Name Administration Dates Next Due COVID-19 mRNA, LNP-s, No Pre serve, 2-Dose Series ([employer]) 03/25/2021,08/27/2020,08/06/2020 COVID-19, MRNA-LNP, 23-24, P F, 30 MCG/0.3 mL, 12 YRS AND ABOVE, IM ([facility]) 06/14/2023 Covid-19, Mrna, Lnp-s, Pf, B ivalent, 30 Mcg, IM, 12 yrs and above ([employer]) 04/28/2022 H1N1 2009 Influenza, IM 05/15/2009 Pneumococcal [...] 06/30/2023 2:40 PM EST Office Visit Dermatology [address] [place] [address] Diana Shaikh PA-C [address] [place] [address] [place] [address] 08/27/2023 3:00 PM EDT Nurse Only Ancillary [address] [place] [address] [place], Nurse Annual [address] [place] [address] 12/13/2023 1:40 PM EDT Office Visit [address] [place] [phone] Christin Welch PA-C [address] [place] [address] [place] [address] 06/20/2024 1:40 PM EST Office Visit [address] [place] [phone] Daysi Pham MD [address] [place] [address] [place] [phone] Health Maintenance Due Date Last Done Comments [...] filedocumented as of this encounter Care Teams Technical Services Manager Relationship Specialty Start Date End Date Daysi Pham MD [address] [place] [address] [place] [address] PCP - General Family Medicine 07/01/17 documented as of this encounter
--- OUTSIDE RECORDS SUMMARY | 2023-11-26 18:49 | External Medical Summary | Summary of Care ---
Author Name Unknown Organization [facility] Address [address] [place] [address] Phone [phone] Care Team Providers Care Curriculum Assistant Name Role Phone Daysi Pham MD Primary Care Provide r Encounter Details Date Type Department Care Team (Latest Contact Info) Description 07/28/2023 Medication Management Carey Montero CMR [address] [place] [address] Batsheva Kellogg, [facility] [address] [place] [address] Referred for management of medication therapy* Allergies Active Allergy Reactions Criticality Noted Date Comments Amoxicillin Rash 11/19/2011 Levofloxacin Other (Please comment) 11/13/2013 Weakness, lightheadedness, nausea Niacin Er 01/30/2010 Burned throat. Prednisone 09/03/2012 Blood pressure went up. Bupropion Hcl 01/30/2010 documented as of this encounter (statuses as of 07/28/2023) Medications Medication Sig Dispensed Refills Start Date [...] 0 7 Active Multiple Vitamins-Minerals (MULTIVITAMIN WOMEN) TABSIndications:ge neral health Take by mouth 1 Tablet daily . 0 Active nitroglycerin (NITROSTAT) 0.4 MG SUBLIndications:Ch ronic coronary artery disease Place 1 Tab under the tongue as needed for Pain, Chest. May repeat 3 times. If chest pain continues, call 911. 25 Tab 1 9 Active Wheat Dextrin (BENEFIBER) powderIndications: gut health [...] by mouth. 0 Active OneTouch Delica Plus [id number] ns:Type 2 diabetes mellitus with hemoglobin A1c goal of less than 8.0% (HCC) USE TO TEST BLOOD SUGAR ONCE A DAY DIRECTED 100 Each 1 3 10/29/19 24 Active Atorvastatin Calcium 80 MG Oral Tablet (Lipitor)Indicatio ns:Dyslipidemia, goal LDL below 100 TAKE ONE TABLET BY MOUTH EVERYday 100 Tablet 3 3 10/26/19 24 Active Lisinopril 5 MG Oral Tablet (Prinivil)Indicati ons:HTN, goal below 140/90 TAKE ONE TABLET BY MOUTH EVERY DAY 90 Tablet 3 3 08/20/19 24 Active Glucose Blood In Vitro StripIndications:T ype 2 diabetes mellitus with hemoglobin A1c goal of less than 8.0% ([facility]) USE TO TEST BLOOD SUGAR ONCE A DAY 100 Strip 3 3 08/16/19 24 Active Isosorbide Mononitrate ER 30 MG Oral Tablet Extended Release 24 Hour (Imdur)Indications :HTN, goal below 140/90 TAKE ONE TABLET BY MOUTH EVERY MORNING 90 Tablet 3 3 02/26/20 24 Active Ipratropium [place] 0.03 % Nasal Solution (Atrovent)Indicati ons:Rhinorrhea ADMINISTER 2 SPRAYS INTO EACH NOSTRIL 4 TIMES A DAY NEEDED FOR RHINITIS. FOR RUNNY NOSE 90 mL 1 3 Active Ipratropium-Albute rol 20-100 MCG/ACT Inhalation Aerosol Solution (Combivent Respimat)Indicatio ns:COPD, group B, by GOLD 2017 classification ([facility]) INHALE 1 PUFF BY MOUTH IN THE MORNING, 1 PUFF AT NOON, 1 PUFF IN THE EVENING, AND 1 PUFF BEFORE BEDTIME 12 g 1 3 04/15/20 24 Active Amitriptyline HCl 10 MG Oral Tablet (Elavil)Indication s:Insomnia, unspecified type TAKE 1 TABLET BY MOUTH EVERYDAY AT BEDTIME 100 Tablet 1 4 Active Apixaban 5 MG Oral Tablet (Eliquis)Indicatio ns:Cerebrovascular disease, arteriosclerotic, post-stroke,Paroxy smal atrial fibrillation ([facility]) TAKE ONE TABLET BY MOUTH TWICE A [...] 4 Active Atenolol 50 MG Oral Tablet (Tenormin)Indicati ons:Chronic coronary artery disease TAKE ONE TABLET BY MOUTH TWICE A DAY 200 Tablet 3 4 Active Pregabalin 25 MG Oral Capsule (Lyrica)Indication s:Type 2 diabetes, controlled, with neuropathy (HCC) TAKE ONE CAPSULE BY MOUTH EVERY MORNING AND TAKE ONE CAPSULE BEFORE BEDTIME 60 Capsule 2 4 Active Probiotic Daily Oral Capsule Take 1 Capsule by mouth in the morning. 0 07/28/19 24 Discontinued Nystatin [id number] UNIT/GM External CreamIndications:I ntertrigo Apply topically to affected area 2 times a day. To affacted area for two weeks. 30 g 2 4 07/28/19 24 Discontinued documented as of this encounter (statuses as of 07/28/2023) Active Problems Problem Noted Date Diagnosed Date [...] as of this encounter (statuses as of 07/28/2023) Resolved Problems Problem Noted Date Diagnosed Date [...] as of this encounter (statuses as of 07/28/2023) Immunizations Name Administration Dates Next Due COVID-19 mRNA, LNP-s, No Pre serve, 2-Dose Series (PostRank) 03/25/2021,08/27/2020,08/06/2020 COVID-19, MRNA-LNP, 23-24, P F, 30 MCG/0.3 mL, 12 YRS AND ABOVE, IM ([facility]) 06/14/2023 Covid-19, Mrna, Lnp-s, Pf, B ivalent, 30 Mcg, IM, 12 yrs and above (PostRank) 04/28/2022 H1N1 2009 Influenza, IM 05/15/2009 Pneumococcal [...] on file documented as of this encounter Progress Notes * Batsheva Kellogg, [facility] - 07/28/2023 11:19 AM EDT Pastora Yee is a 73 year old female. Objective: Review of patient's allergies indicates: Allergen Reactions Amoxicillin Rash Levofloxacin Other (Please comment) Weakness, lightheadedness, nausea Niaspan [Niacin Er] Burned throat. Prednisone Blood pressure went up. Zyban [Bupropion Hcl] Current Outpatient Medications - WARNING: List may be incomplete due to filtering Medication Sig Dispense Refill Pregabalin 25 MG Oral Capsule (Lyrica) TAKE ONE CAPSULE BY MOUTH EVERY MORNING AND TAKE ONE CAPSULEBEFORE BEDTIME 60 Capsule 2 Atenolol 50 MG Oral Tablet (Tenormin) TAKE ONE TABLET BY MOUTH TWICE A DAY 200 Tablet 3 Apixaban 5 MG Oral Tablet (Eliquis) TAKE ONE TABLET BY MOUTH TWICE A DAY 200 Tablet 1 Empagliflozin 10 MG Oral Tablet (Jardiance) Take 1 Tablet by mouth in the morning. Esomeprazole Magnesium 40 MG Oral Capsule Delayed Release Take 1 Capsule by mouth 2 times a day with morning and evening meals. 200 Capsule 1 Amitriptyline HCl 10 MG Oral Tablet (Elavil) TAKE 1 TABLET BY MOUTH EVERYDAY AT BEDTIME 100 Tablet 1 Ipratropium-Albuterol 20-100 MCG/ACT Inhalation Aerosol Solution (Combivent Respimat) INHALE 1 PUFFBY MOUTH IN THE MORNING, 1 PUFF AT NOON, 1 PUFF IN THE EVENING, AND 1 PUFF BEFORE BEDTIME 12 g 1 Ipratropium [place] 0.03 % Nasal Solution (Atrovent) ADMINISTER 2 SPRAYS INTO EACH NOSTRIL 4 TIMES A DAY NEEDED FOR RHINITIS. FOR RUNNY NOSE 90 mL 1 Isosorbide Mononitrate ER 30 MG Oral Tablet Extended Release 24 Hour (Imdur) TAKE ONE TABLET BY MOUTH EVERY MORNING 90 Tablet 3 Atorvastatin Calcium 80 MG Oral Tablet (Lipitor) TAKE ONE TABLET BY MOUTH EVERYday 100 Tablet 3 Vitamin D 125 MCG (5000 UT) Oral Capsule Take by mouth. Lisinopril 5 MG Oral Tablet (Prinivil) TAKE ONE TABLET BY MOUTH EVERY DAY 90 Tablet 3 Systane Preservative Free 0.4-0.3 % Ophthalmic Solution (Polyethyl Glyc-Propyl Glyc PF) Instill into eye 1 Drop daily as needed for Other. fexofenadine (ARGELIA) 180 MG Tablet Take 1 Tab by mouth daily. For allergies. (Patient taking differently: Take 1 Tablet by mouth daily as needed for Allergies.) 90 Tab 3 Pomegranate 250 MG CAPS Take by mouth . Taking 400 mg daily Multiple Vitamins-Minerals (MULTIVITAMIN WOMEN) TABS Take by mouth 1 Tablet daily . nitroglycerin (NITROSTAT) 0.[address] 1 Tab under the tongue as needed for Pain, Chest. May repeat 3 times. If chest pain continues, call 911. 25 Tab 1 Respiratory Therapy Supplies (NEBULIZER) ZAIRA Use as directed. Duonebs, 3 ml's every 6 hours as needed 1 Device 0 oxygen GAS Use 2 L/min(Oxygen) as directed at bedtime. ASPIRIN 81 MG PO TABS Take 1 Tablet by mouth in the morning. CO Q 10 100 MG PO CAPS Take by mouth 100 mg daily . VITAMIN B COMPLEX PO CAPS Take by mouth 1 Capsule daily . Pretty in my Pocket (PRIMP)Touch Delica Plus [id number] USE TO TEST BLOOD SUGAR ONCE A DAY DIRECTED 100 Each 1 Glucose Blood In Vitro Strip USE TO TEST BLOOD SUGAR ONCE A DAY 100 Strip 3 Fluocinolone Acetonide 0.01 % Otic Oil Administer into ears once a week . On Saturdays Pretty in my Pocket (PRIMP)Touch Verio w/Device Kit Use once a day Dx: E11.9 1 Kit 0 Wheat Dextrin (BENEFIBER) powder Take by mouth . 1 teaspoon daily in beverage Immunization History Administered Date(s) Administered COVID-19 mRNA, LNP-s, No Preserve, 2-Dose Series (PostRank) 08/06/2020, 08/27/2020, 03/25/2021 COVID-19, MRNA-LNP, 23-24, PF, 30 MCG/0.3 mL, 12 YRS AND ABOVE, IM ([facility]) 06/14/2023 Covid-19, Mrna, Lnp-s, Pf, Bivalent, 30 Mcg, IM, 12 yrs and above (Pfizer) 04/28/2022 H1N1 2009 Influenza, IM 05/15/2009 Pneumococcal Conjugate Vacc, 13 Valent (Prevnar) 11/01/2014 Pneumococcal Polysaccharide PPV23 (Pneumovax) 05/03/2003, 06/30/2016 Season Influenza, Quad, PF, Adjuvanted, 65+ Yrs, IM (FLUAD) 02/16/2020 Seasonal Influenza Virus Vaccine, Unspecified Formulation 02/14/2018 Seasonal Influenza, Quadrivalent Hd (Fluzone Hd) 02/06/2021, 01/20/2022 Seasonal Influenza, Quadrivalent, No Preserve, IM 02/05/2015, 02/28/2016, 01/31/2018 Seasonal Influenza, Split, IIV3, With Preserve, Inj 03/17/2005, 01/31/2006, 01/31/2007, 02/29/2008,01/18/2009, 01/30/2010, 01/27/2011, 02/01/2012, 01/31/2013, 01/11/2014, 03/03/2017 Seasonal Influenza, Trivalent, Adjuvanted, 65+ yrs 01/10/2019 TDAP (age 11 and older)(Adacel) 10/26/2007 Varicella Zoster Vaccine (Adult) 03/15/2015 Zoster Vaccine Recombinant (Shingrix) 01/13/2019 TMR Interventions Incomplete Medication Therapy Recommendations No medication therapy recommendations to display Completed Medication Therapy Recommendations No medication therapy recommendations to display Assessment & Plan Indication, effectiveness, safety and convenience of her medications were reviewed today. The patient's medical conditions were assessed, evaluated, and deemed meeting goals of drug therapy, with thefollowing exceptions. Additional Notes: Patient adherent and up to date on labs No issues identified Summary Time Spent: 16-30 min Supervising pharmacist who provided the service: Batsheva Kellogg, PharmD, [facility] Takesohail Information Who was the recipient of the CMR service: 0 Language Template for the Patient Takeaway: British I attest that I have reviewed and updated the patient's conditions, allergies, and medications to the best of my ability. Patient provided medication list gathered by: Alla Chun, [employer] Supervisor Batsheva Kellogg RPh 07/28/2023, 11:19 AM documented in this encounter Miscellaneous Notes * [place] To-Do-List - Batsheva Kellogg RPh - 07/28/2023 1:34 PM EDT Images from the original note were not included. What we talked about: What I should do: The importance of taking your medication as prescribed Your medicine works best when taken as prescribed. It can be hard to remember to take daily medications. Consider making it a part of your daily routine. Pair taking your medication with something you do every day, like brushing your teeth or eating a meal. Consider setting daily alarms to help remind yourself when it is time to take your medicine. Using a pill box can also help you organize your medicines. Pill boxes allow you to fill each day slot with your daily medicine and help you track when your next dose is due. * [facility] Personal Medication List - Batsheva Kellogg RPh - 07/28/2023 11:19 AM EDT Medication How i take it Why I use it Prescriber Amitriptyline HCl 10 MG Oral Tablet (Elavil) Take 1 tablet by mouth everyday at bedtime Sleep Daysi Pham MD Apixaban 5 MG Oral Tablet (Eliquis) Take 1 tablet by mouth twice a day Blood thinner Daysi Pham MD ASPIRIN 81 MG PO TABS Take 1 tablet by mouth in the morning Heart Health Self Atenolol 50 MG Oral Tablet (Tenormin) Take 1 tablet by mouth twice a day Heart Health, Blood Pressure Daysi Pham MD Atorvastatin Calcium 80 MG Oral Tablet (Lipitor) Take 1 tablet by mouth everyday Cholesterol Daysi Pham MD CO Q 10 100 MG PO CAPS Take 1 tablet by mouth daily Leg Pain Self Empagliflozin 10 MG Oral Tablet (Jardiance) Take 1 tablet by mouth in the morning Diabetes Daysi Pham MD Esomeprazole Magnesium 40 MG Oral Capsule Delayed Release Take 1 capsule by mouth 2 times a day with morning and evening meals Acid Reflux Daysi Pham MD fexofenadine (ARGELIA) 180 MG Tablet Take 1 tablet by mouth daily as needed for allergies AllergiesDaysi Pham MD Ipratropium-Albuterol 20-100 MCG/ACT Inhalation Aerosol Solution (Combivent Respimat) Inhale 1 puffby mouth in the morning, 1 puff at noon, 1 puff in the evening, and 1 puff before bedtime as neededCOPD Lovely Ross DO Isosorbide Mononitrate ER 30 MG Oral Tablet Extended Release 24 Hour (Imdur) Take 1 tablet by mouthevery morning Blood Pressure Enrico De La Torre PA-C Lisinopril 5 MG Oral Tablet (Prinivil) Take 1 tablet by mouth daily Blood Pressure Enrico De La Torre PA-C Multiple Vitamins-Minerals (MULTIVITAMIN WOMEN) TABS Take 1 tablet by mouth daily General Health Self nitroglycerin (NITROSTAT) 0.[address] 1 tablet under the tongue as needed for chest pain. Mayrepeat 3 times. If chest pain continues, call 911. Chest Pain Daysi Pham MD Pomegranate 250 MG CAPS Take one capsule by mouth once daily General health Self Pregabalin 25 MG Oral Capsule (Lyrica) Take 1 capsule by mouth every morning and take 1 capsule before bedtime Pain from Diabetes Daysi Pham MD Respiratory Therapy Supplies (NEBULIZER) ZAIRA Use as directed. Duonebs, 3 ml's every 6 hours as needed COPD Enrico De La Torre PA-C Systane Preservative Free 0.4-0.3 % Ophthalmic Solution (Polyethyl Glyc-Propyl Glyc PF) Instill into eye 1 drop daily as needed for dry eyes Dry eyes Self VITAMIN B COMPLEX PO CAPS Take 1 capsule by mouth daily General Health Self Vitamin D 125 MCG (5000 UT) Oral Capsule Take 1 tablet by mouth General Health Self documented in this encounter Plan of Treatment Upcoming Encounters Date Type Department Care Team (Late st Contact Info) Description 08/27/2023 3:00 PM EDT Nurse Only Ancillary [address] [place] [address] [place], Nurse Annual [facility]ness [address] [place] [address] [place] [phone] 12/13/2023 1:40 PM EDT Office Visit [address] [phone] Christin Welch PA-C [address] [place] [address] [place] [phone] 06/20/2024 1:40 PM EST Office Visit [address] [phone] Daysi Pham MD [address] [place] [address] [place] [phone] Health Maintenance Due Date Last Done Comments [...] as of this encounter Visit Diagnoses Diagnosis Referred for management of medication therapy- Primary Encounter for long-term (current) use of other medications documented in this encounter Care Teams Curriculum Assistant Relationship Specialty Start Date End Date Daysi Pham MD [address] [place] [address] [place] [phone] PCP - General Family Medicine 07/01/17 documented as of this encounter
--- OUTSIDE RECORDS SUMMARY | 2023-11-26 18:49 | External Medical Summary | Summary of Care ---
Author Name Unknown Organization [facility] Address [address] [place] [address] Phone [phone] Care Team Providers Care Litigation Specialist Name Role Phone Daysi Pham MD Primary Care Provide r Reason for Visit * Reason Comments Medication Refill Encounter Details Date Type Department Care Team (Late st Contact Info) Description 08/08/2023 Refill Family Medicine [address] [phone] Daysi Pham MD [address] [place] [address] MD [phone] Type 2 diabetes mellitus with hemoglobin A1c goal of less than 8.0% ([facility]) Allergies Active Allergy Reactions Criticality Noted Date Comments Amoxicillin Rash 11/19/2011 Levofloxacin Other (Please comment) 11/13/2013 Weakness, lightheadedness, nausea Niacin Er 01/30/2010 Burned throat. Prednisone 09/03/2012 Blood pressure went up. Bupropion Hcl 01/30/2010 documented as of this encounter (statuses as of 08/09/2023) Medications Medication Sig Dispensed Refills Start Date End Date Status VITAMIN B COMPLEX PO CAPSIndications:sup plementation Take by mouth 1 Capsule daily . 0 Active CO Q 10 100 MG PO CAPSIndications:leg pain Take by mouth 100 mg daily . 0 Active ASPIRIN 81 MG PO TABSIndications:StrikeIrona GameSalad Take 1 Tablet by mouth in the morning. 0 Active oxygen GAS Use 2 L/min(Oxygen) as directed at bedtime. 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 Duonebs, 3 ml's every 6 hours as needed 1 Device 0 7 Active Multiple Vitamins-Minerals (MULTIVITAMIN WOMEN) TABSIndications:Systancia Take by mouth 1 Tablet daily . 0 Active nitroglycerin (NITROSTAT) 0.4 MG SUBLIndications:Chr onic coronary artery disease Place 1 Tab under the tongue as needed for Pain, Chest. May repeat 3 times. If chest pain continues, call 911. 25 Tab 1 9 Active Wheat Dextrin (BENEFIBER) powderIndications:g sc health Take by mouth . 1 teaspoon [...] by mouth. 0 Active OneTouch Delica Plus [id number] s:Type 2 diabetes mellitus with hemoglobin A1c [...] 90 Tablet 3 3 08/20/19 24 Active Isosorbide Mononitrate ER 30 MG Oral Tablet Extended Release 24 Hour (Imdur)Indications: HTN, goal below 140/90 TAKE ONE TABLET BY MOUTH EVERY MORNING 90 Tablet 3 3 02/26/20 24 Active Ipratropium [place] 0.03 % Nasal Solution (Atrovent)Indicatio ns:Rhinorrhea ADMINISTER 2 SPRAYS INTO EACH NOSTRIL 4 TIMES A DAY NEEDED FOR RHINITIS. FOR RUNNY NOSE 90 mL 1 3 Active Ipratropium-Albuter ol 20-100 MCG/ACT Inhalation Aerosol Solution (Combivent Respimat)Indication s:COPD, group B, by GOLD 2017 classification ([facility]) INHALE 1 PUFF BY MOUTH [...] A DAY 100 Strip 3 4 Active Glucose Blood In Vitro StripIndications:Ty pe 2 diabetes mellitus with hemoglobin A1c goal of less than 8.0% (HCC) USE TO TEST BLOOD SUGAR ONCE A DAY 100 Strip 3 3 08/08/19 24 Discontinu ed(Refill) documented as of this encounter (statuses as of 08/09/2023) Active Problems Problem Noted Date Diagnosed Date [...] as of this encounter (statuses as of 08/09/2023) Resolved Problems Problem Noted Date Diagnosed Date [...] as of this encounter (statuses as of 08/09/2023) Immunizations Name Administration Dates Next Due COVID-19 mRNA, LNP-s, No Pre serve, 2-Dose Series (Matter and Form) 03/25/2021,08/27/2020,08/06/2020 COVID-19, MRNA-LNP, 23-24, P F, 30 MCG/0.3 mL, 12 YRS AND ABOVE, IM ([facility]) 06/14/2023 Covid-19, Mrna, Lnp-s, Pf, B ivalent, 30 Mcg, IM, 12 yrs and above (Matter and Form) 04/28/2022 H1N1 2009 Influenza, IM 05/15/2009 Pneumococcal [...] encounter Miscellaneous Notes * Telephone Encounter - Rock Lomas RPh - 08/09/2023 12:29 PM EDT Signed Prescriptions: Disp Refills OneTouch Verio In Vitro Strip (Glucose Blo*100 St*3 Sig: USE TO TEST BLOOD SUGAR ONCE A DAYAuthorizing Provider: DAYSI PHAM User: ROCK LOMAS documented in this encounter Plan of Treatment Upcoming Encounters Date Type Department Care Team (Late st Contact Info) Description 08/27/2023 3:00 PM EDT Nurse Only Ancillary Margarita Santiago[address] [place] [phone] [place], Nurse [address] [place] [phone] 12/13/2023 1:40 PM EDT Office Visit [address] [place] [phone] Christin Welch PA-C [address] [place] [address] [place] [phone] 06/20/2024 1:40 PM EST Office Visit [address] [place] [phone] Daysi Pham MD [address] [place] [address] [place] [phone] Health Maintenance Due Date Last Done Comments [...] 11/18/2022, 070 08/2022, 11/04/2022, Additional history exists Influenza Vaccine [...] (HCC) documented in this encounter Care Teams Litigation Specialist Relationship Specialty Start Date End Date Daysi Pham MD [address] [place] [address] [place] [id number] PCP - General Family Medicine 07/01/17 documented as of this encounter
--- OUTSIDE RECORDS SUMMARY | 2023-11-26 18:50 | External Medical Summary | Summary of Care ---
Author Name Unknown Organization [facility] Address [address] [place] [address] Phone [phone] Care Team Providers Care Psych Specialist Name Role Phone Daysi Pham MD Primary Care Provide r Reason for Visit * Reason Onset Date Comments Health Maintenance 06/10/2023 Encounter Details Date Type Department Care Team (Late st Contact Info) Description 06/10/2023 Telephone Family [address] [phone] Daysi Pham MD [address] [place] [address] [place] [address] Health Maintenance Allergies Active Allergy Reactions Criticality Noted Date Comments Amoxicillin Rash 11/19/2011 Levofloxacin Other (Please comment) 11/13/2013 Weakness, lightheadedness, nausea Niacin Er 01/30/2010 Burned throat. Prednisone 09/03/2012 Blood pressure went up. Bupropion Hcl 01/30/2010 documented as of this encounter (statuses as of 06/10/2023) Medications Medication Sig Dispensed Refills Start Date End Date Status VITAMIN B COMPLEX PO CAPSIndications:sup plementation Take by mouth 1 Capsule daily . 0 Active CO Q 10 100 MG PO CAPSIndications:leg pain Take by mouth 100 mg daily . 0 Active ASPIRIN 81 MG PO TABSIndications:hea Stockpulse Take 1 Tablet by mouth in the morning. 0 Active oxygen GAS Use 2 L/min(Oxygen) as directed at bedtime. 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 Duonebs, 3 ml's every 6 hours as needed 1 Device 0 05/21/2016 Active Multiple Vitamins-Minerals (MULTIVITAMIN WOMEN) TABSIndications:gen GazeHawk Take by mouth 1 Tablet daily . 0 Active nitroglycerin (NITROSTAT) 0.4 MG SUBLIndications:Chr onic coronary artery disease Place 1 Tab under the tongue as needed for Pain, Chest. May repeat 3 times. If chest pain continues, call 911. 25 Tab 1 01/31/2019 Active Additional Information Patient not taking.Reported on 09/01/2022 Wheat Dextrin (BENEFIBER) powderIndications:g ut health Take by mouth . 1 teaspoon [...] the morning. 0 Active OneTouch Delica Plus [id number] s:Type 2 diabetes mellitus with hemoglobin A1c [...] hemoglobin A1c goal of less than 8.0% ([facility]) USE TO TEST BLOOD SUGAR ONCE A [...] 90 Tablet 3 02/26/2023 4 Active Ipratropium [place] 0.03 % Nasal Solution (Atrovent)Indicatio ns:Rhinorrhea ADMINISTER 2 SPRAYS INTO EACH NOSTRIL 4 TIMES A DAY NEEDED FOR RHINITIS. FOR RUNNY NOSE 90 mL 1 03/15/2023 Active Apixaban 5 MG Oral Tablet (Eliquis)Indication s:Cerebrovascular disease, arteriosclerotic, post-stroke,Paroxys mal atrial fibrillation ([facility]) TAKE ONE TABLET BY MOUTH TWICE A DAY 180 Tablet 0 03/15/2023 Active Pregabalin 25 MG Oral Capsule (Lyrica)Indications :Type 2 diabetes, controlled, with neuropathy ([facility]) TAKE ONE CAPSULE BY MOUTH EVERY MORNING AND TAKE ONE CAPSULE BEFORE BEDTIME 60 Capsule 2 03/23/2023 Active Ipratropium-Albuter ol 20-100 MCG/ACT Inhalation Aerosol Solution (Combivent Respimat)Indication s:COPD, group B, by GOLD 2017 classification ([facility]) INHALE 1 PUFF BY MOUTH IN THE MORNING, 1 PUFF AT NOON, 1 PUFF IN THE EVENING, AND 1 PUFF BEFORE BEDTIME 12 g 1 04/16/2023 Active Esomeprazole Magnesium 40 MG Oral Capsule Delayed ReleaseIndications: Gastroesophageal reflux disease without esophagitis TAKE ONE CAPSULE BY MOUTH IN THE MORNING ONE HOUR BEFORE THE FIRST MEAL OF THE DAY. 100 Capsule 1 05/04/2023 Active Nystatin [id number] UNIT/GM External CreamIndications:In tertrigo Apply topically to [...] 10 days. 20 Capsule 0 06/07/2023 Active documented as of this encounter (statuses as of 06/10/2023) Active Problems Problem Noted Date Diagnosed Date [...] as of this encounter (statuses as of 06/10/2023) Resolved Problems Problem Noted Date Diagnosed Date [...] as of this encounter (statuses as of 06/10/2023) Immunizations Name Administration Dates Next Due COVID-19 mRNA, LNP-s, No Pre serve, 2-Dose Series ([employer]) 03/25/2021,08/27/2020,08/06/2020 Covid-19, Mrna, Lnp-s, Pf, B ivalent, 30 Mcg, IM, 12 yrs and above ([employer]) 04/28/2022 H1N1 2009 Influenza, IM 05/15/2009 Pneumococcal [...] encounter Miscellaneous Notes * Telephone Encounter - Zenia Salazar SMITHA - 06/10/2023 2:51 PM EST Care Gaps Comprehensive Care Outreach Last Office/Telemedicine Visit: 08/21/2022 (in office), Visit date not found (telemedicine) Next Office Visit: 06/14/2023 Hemoglobin AIC Results: Lab Results Component Value Date/Time HEMOGLOBIN A1C - [facility] 6.8 (H) 05/12/2023 11:02 AM HEMOGLOBIN A1C - [facility] 6.5 (H) 08/11/2022 01:24 PM HEMOGLOBIN A1C - [facility] 6.5 (H) 09/24/2021 10:51 AM HEMOGLOBIN A1C - [facility] 6.1 12/29/2016 08:27 AM HEMOGLOBIN A1C - [facility] 5.7 10/20/2010 09:29 AM HEMOGLOBIN A1C - [facility] 6.0 07/03/2009 02:08 PM BP Readings from Last 1 Encounters: 11/18/22 124/70 Reviewed Health Maintenance below: Health Maintenance Topic Date Due Alpha-1 Antitrypsin Never done Hepatitis B (1 of 3 - Risk 3-dose series) Never done DTaP,Tdap,and Td Vaccines (2 - Td or Tdap) 10/25/2017 COLONOSCOPY-ANNUAL AGES 18-100 01/24/2019 Zoster Vaccines (3 of 3) 03/10/2019 DXA Scan 11/21/2021 Influenza Vaccine (FLU shot) (1) 01/01/2023 Colon my g Awv already scheduled Care Gap Outreach Action Taken: [place] message sent documented in this encounter Plan of Treatment Upcoming Encounters Date Type Department Care Team (Late st Contact Info) Description 06/14/2023 11:40 AM EST Office Visit Family Medicine [address] [place] [phone] Daysi Pham MD [address] [place] [address] [place] [address] 06/30/2023 2:40 PM EST Office Visit Dermatology [address] [place] [address] Diana Shaikh PA-C [address] [place] [address] [place] [address] 08/27/2023 3:00 PM EDT Nurse Only Ancillary [address] [place] [address] [place], Nurse Annual [facility]ness [address] [place] [address] [place] [address] Health Maintenance Due Date Last Done Comments [...] filedocumented as of this encounter Care Teams Psych Specialist Relationship Specialty Start Date End Date Daysi Pham MD [address] [place] [address] [place] [phone] PCP - General Family Medicine 07/01/17 documented as of this encounter
--- OUTSIDE RECORDS SUMMARY | 2023-11-26 18:50 | External Medical Summary | Summary of Care ---
Author Name Unknown Organization [facility] Address [address] [facility] [place] [address] Phone [phone] Care Team Providers Care Sustainable Products Marketing Manager Name Role Phone Daysi Pham MD Primary Care Provide r Reason for Visit * Reason Comments Follow Up rash groin/breast ar ea x 2 years Encounter Details Date Type Department Care Team (Late st Contact Info) Description 06/02/2023 3:00 PM EST Office Visit Dermatology [address] [place] [address] Diana Shaikh PA-C [address] [place] [address] [place] [address] Erythema intertrigo*; Candidal intertrigo Allergies Active Allergy Reactions Criticality Noted Date Comments Amoxicillin Rash 11/19/2011 Levofloxacin Other (Please comment) 11/13/2013 Weakness, lightheadedness, nausea Niacin Er 01/30/2010 Burned throat. Prednisone 09/03/2012 Blood pressure went up. Bupropion Hcl 01/30/2010 documented as of this encounter (statuses as of 06/03/2023) Medications Medication Sig Dispensed Refills Start Date End Date Status VITAMIN B COMPLEX PO CAPSIndications:sup plementation Take by mouth 1 Capsule daily . 0 Active CO Q 10 100 MG PO CAPSIndications:leg pain Take by mouth 100 mg daily . 0 Active ASPIRIN 81 MG PO TABSIndications:Bubble Gum Interactivea spotflux Take 1 Tablet by mouth in the morning. 0 Active oxygen GAS Use 2 L/min(Oxygen) as directed at bedtime. 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 Duonebs, 3 ml's every 6 hours as needed 1 Device 0 7 Active Multiple Vitamins-Minerals (MULTIVITAMIN WOMEN) TABSIndications:Grand Cru Take by mouth 1 Tablet daily . 0 Active nitroglycerin (NITROSTAT) 0.4 MG SUBLIndications:Chr onic coronary artery disease Place 1 Tab under the tongue as needed for Pain, Chest. May repeat 3 times. If chest pain continues, call 911. 25 Tab 1 9 Active Additional Information Patient not taking.Reported on 09/01/2022 Wheat Dextrin (BENEFIBER) powderIndications:g wa [employer] Take by mouth . 1 teaspoon daily [...] goal of less than 8.0% ([facility]) Use once a day Dx: [...] the morning. 0 Active OneTouch Delica Plus [id number] s:Type 2 diabetes mellitus with hemoglobin A1c goal of less than 8.0% ([facility]) USE TO TEST BLOOD SUGAR [...] goal of less than 8.0% ([facility]) USE TO TEST BLOOD SUGAR [...] Tablet 3 3 02/26/20 24 Active Ipratropium [place] 0.03 % Nasal Solution (Atrovent)Indicatio ns:Rhinorrhea ADMINISTER 2 SPRAYS INTO EACH NOSTRIL 4 TIMES A DAY NEEDED FOR RHINITIS. FOR RUNNY NOSE 90 mL 1 3 Active Apixaban 5 MG Oral Tablet (Eliquis)Indication s:Cerebrovascular disease, arteriosclerotic, post-stroke,Paroxys mal atrial fibrillation (HCC) TAKE ONE TABLET BY MOUTH TWICE A DAY 180 Tablet 0 3 Active Pregabalin 25 MG Oral Capsule (Lyrica)Indications :Type 2 diabetes, controlled, with neuropathy ([facility]) TAKE ONE CAPSULE BY MOUTH EVERY MORNING AND TAKE ONE CAPSULE BEFORE BEDTIME 60 Capsule 2 3 Active Ipratropium-Albuter ol 20-100 MCG/ACT Inhalation Aerosol Solution (Combivent Respimat)Indication s:COPD, group B, by GOLD 2017 classification ([facility]) INHALE 1 PUFF BY MOUTH [...] DAY. 100 Capsule 1 4 Active Nystatin 820138 UNIT/GM External CreamIndications:In tertrigo Apply topically to [...] prevent recurrence. 454 g 0 4 Active Clotrimazole 1 % External Cream (Lotrimin) Apply topically to affected area 2 times a day for 14 days. 60 g 1 4 06/02/19 24 Discontinu ed(Medicat ion/Dose Changed) documented as of this encounter (statuses as of 06/03/2023) Active Problems Problem Noted Date Diagnosed Date [...] as of this encounter (statuses as of 06/03/2023) Resolved Problems Problem Noted Date Diagnosed Date [...] as of this encounter (statuses as of 06/03/2023) Immunizations Name Administration Dates Next Due COVID-19 mRNA, LNP-s, No Pre serve, 2-Dose Series ([employer]) 03/25/2021,08/27/2020,08/06/2020 Covid-19, Mrna, Lnp-s, Pf, B ivalent, 30 Mcg, IM, 12 yrs and above ([employer]) 04/28/2022 H1N1 2009 Influenza, IM 05/15/2009 Pneumococcal [...] * Patient Instructions* Diana Shaikh PA-C - 06/02/2023 2:56 PM EST The side effects of chronic [...] in this encounter Progress Notes * Rommel Cat MD - 06/03/2023 8:48 AM EST I have seen and examined the patient via teledermatology review of chart note and photos with Diana Shaikh PA-C. I have reviewed and agree with the assessment and plan. * Diana Shaikh PA-C - 06/02/2023 2:42 PM EST SUBJECTIVE: History of Present Illness: Pastora Yee is a 72 year old female seen today for rash. Previous appointment date: 09/07/2012 Last attempted treatments include: clobetasol solution for seboporiasis ([place]) Rash under breasts and in groin, present for over 2 years. Bathes BID and uses clotrimazole 1% and Nystatin cream BID without improvement. 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 REVIEW OF SYSTEMS: SKIN: No [...] NONE Reviewed, same day as visit, 0 [facility] Dermatology lab work(s)/pathology report(s) as well [...] times. If chest pain continues, call 911. (Patient not taking: Reported on 09/01/2022) 25 Tab 1 Wheat Dextrin (BENEFIBER) powder Take by mouth . 1 teaspoon daily in beverage Pomegranate 250 MG CAPS Take by mouth . Taking 400 mg daily fexofenadine (ARGELIA) 180 MG Tablet Take 1 Tab by mouth daily. For allergies. (Patient taking differently: Take 1 Tablet by mouth daily as needed for Allergies.) 90 Tab 3 TripeeseTouch Verio w/Device Kit Use once a day [...] mouth in the morning. OneTouch Delica Plus [id number] USE TO TEST BLOOD SUGAR ONCE A [...] MOUTH EVERY MORNING 90 Tablet 3 Ipratropium [place] 0.03 % Nasal Solution (Atrovent) ADMINISTER 2 SPRAYS INTO EACH NOSTRIL 4 TIMES A DAY NEEDED FOR RHINITIS. FOR RUNNY NOSE 90 mL 1 Apixaban 5 MG Oral Tablet (Eliquis) TAKE ONE TABLET BY MOUTH TWICE A DAY 180 Tablet 0 Pregabalin 25 MG Oral Capsule (Lyrica) TAKE [...] OF THE DAY. 100 Capsule 1 Nystatin 734467 UNIT/GM External Cream Apply topically to affected area 2 times a day. To affacted area for two weeks. 30 g 2 Clotrimazole 1 % External Cream (Lotrimin) Apply topically to affected area 2 times a day for 14 days. 60 g 1 Amitriptyline HCl 10 MG Oral Tablet (Elavil) TAKE 1 TABLET BY MOUTH EVERYDAY AT BEDTIME 100 Tablet 1 No current facility-administered medications for this visit. ALLERG IES: Amoxicillin, Levofloxacin, Niaspan [niacin er], Prednisone, and Zyban [bupropion hcl] OBJECT KATHY: GEN: alert, no distress, appears oriented, pleasant, and cooperative. SKIN: Detailed exam of chest, abdomen, and inguinal areas completed: Inframammary regions/inguinal/groin regions-Well defined erythematous shiny macerate plaques with satellite lesions and 2 superficial fissures in groin creases. ASSESS MENT/PLAN: 1. Candidal and erythematous intertrigo on inframammary regions/inguinal/groin regions- -Routine culture taken, will call pt with result. -D/c Nystatin, use clotrimazole 1% cream first, then triamcinolone 0.1% ointment on top and when all areas cleared, then start to use Desitin 40% cream all daily as barrier cream. -Side effects of medication discussed and treatment regimen written and printed on checkout sheet. Patient with partner today. Photo(s) of #1 taken, pt verbally consented to having photo(s) taken. Follow-up: 1 month for intertrigo f/u Contact patient via cell phone Ok to leave results on message: Yes Able to speak to spouse Patient Phone Numbers Applicable photos (if any) and chart reviewed [...] the visit and treatment. Diana Shaikh PA-C 06/02/2023 2:42 PM Ref: SELF[[id number]] NO STREET ADDRESS AVAILABLE None (office) None (fax) PCP: DAYSI PHAM [address] [place] [address] [place] [address] [phone] documented in this encounter Nursing Notes * Aiayna Estes LPN - 06/02/2023 2:44 PM EST Patient identified by full name and date of . Chief Complaint Patient presents with Follow Up rash groin/breast area x 2 years documented in this encounter Plan of Treatment Upcoming Encounters Date Type Department Care Team (Late st Contact Info) Description 06/14/2023 11:40 AM EST Office Visit Family Medicine [facility] [address] [place] [phone] Daysi Pham MD [address] [place] [address] [place] [address] 08/27/2023 3:00 PM EDT Nurse Only Ancillary [address] [place] [address] [place], Nurse Annual [address] [place] [address] Pending Results Name Type Priority Associated Diagnoses Date /Time CULTURE, WOUND, SUPERFICIAL, AEROBIC Lab Routine Candidal intertrigo Erythema intertrigo 06/02/2023 3:34 PM EST Health Maintenance Due Date Last Done Comments [...] Additional history exists Mammogram 11/19/2023 11/18/2022, 0708/2022, 10/31/2021, Additional history exists Diabetic Eye Exam 02/23/2024 [...] Associated Diagnosis Comments DERM IMAGE (SITE) Routine 06/02/2023 Candidal intertrigo Erythema intertrigo documented in this encounter Results * DERM IMAGE (SITE) (06/02/2023) 06/02/2023 Diana Shaikh PA-C DIGITAL PHOTOG JAZMIN documented in this encounter Visit Diagnoses Diagnosis Erythema intertrigo- Primary Other specified erythematous condition Candidal intertrigo Candidiasis of skin and nails documented in this encounter Care Teams Sustainable Products Marketing Manager Relationship Specialty Start Date End Date Daysi Pham MD [address] [place] [address] [place] [address] PCP - General Family Medicine 07/01/17 documented as of this encounter
--- OUTSIDE RECORDS SUMMARY | 2023-11-26 18:50 | External Medical Summary | Summary of Care ---
Author Name Unknown Organization [facility] Address [address] [place] [address] Phone [phone] Care Team Providers Care E Learning Specialist Name Role Phone Daysi Pham MD Primary Care Provide r Reason for Visit * Reason Comments Medication Refill Encounter Details Date Type Department Care Team (Late st Contact Info) Description 05/28/2023 Refill Family Medicine [address] [phone] Daysi Pham MD [address] [place] [address] [place] [id number] Type 2 diabetes, controlled, with neuropathy (HCC) Allergies Active Allergy Reactions Criticality Noted Date Comments Amoxicillin Rash 11/19/2011 Levofloxacin Other (Please comment) 11/13/2013 Weakness, lightheadedness, nausea Niacin Er 01/30/2010 Burned throat. Prednisone 09/03/2012 Blood pressure went up. Bupropion Hcl 01/30/2010 documented as of this encounter (statuses as of 06/07/2023) Medications Medication Sig Dispensed Refills Start Date End Date Status VITAMIN B COMPLEX PO CAPSIndications:supp lementation Take by mouth 1 Capsule daily . 0 Active CO Q 10 100 MG PO CAPSIndications:leg pain Take by mouth 100 mg daily . 0 Active ASPIRIN 81 MG PO TABSIndications:Hotlist Take 1 Tablet by mouth in the morning. 0 Active oxygen GAS Use 2 L/min(Oxygen) as directed at bedtime. 0 Active Respiratory Therapy Supplies (NEBULIZER) DEVIIndications:COPD , moderate (HCC) Use as directed. Duonebs, 3 ml's every 6 hours as needed 1 Device 0 05/21/2016 Active Multiple Vitamins-Minerals (MULTIVITAMIN WOMEN) TABSIndications:BindHQ Take by mouth 1 Tablet daily . 0 Active nitroglycerin (NITROSTAT) 0.4 MG SUBLIndications:Periodontal Assistant lev coronary artery disease Place 1 Tab under the tongue as needed for Pain, Chest. May repeat 3 times. If chest pain continues, call 911. 25 Tab 1 01/31/2019 Active Additional Information Patient not taking.Reported on 09/01/2022 Wheat Dextrin (BENEFIBER) powderIndications:[employer] Take by mouth . 1 teaspoon [...] the morning. 0 Active OneTouch Delica Plus [id number] :Type 2 diabetes mellitus with hemoglobin A1c [...] goal of less than 8.0% ([facility]) USE TO TEST BLOOD SUGAR ONCE A [...] 90 Tablet 3 02/26/2023 4 Active Ipratropium [place] 0.03 % Nasal Solution (Atrovent)Indication s:Rhinorrhea ADMINISTER 2 SPRAYS INTO EACH NOSTRIL 4 TIMES A DAY NEEDED FOR RHINITIS. FOR RUNNY NOSE 90 mL 1 03/15/2023 Active Apixaban 5 MG Oral Tablet (Eliquis)Indications :Cerebrovascular disease, arteriosclerotic, post-stroke,Paroxysm al atrial fibrillation ([facility]) TAKE ONE TABLET BY MOUTH TWICE A DAY 180 Tablet 0 03/15/2023 Active Pregabalin 25 MG Oral Capsule (Lyrica)Indications: Type 2 diabetes, controlled, with neuropathy ([facility]) TAKE ONE CAPSULE BY MOUTH EVERY MORNING AND TAKE ONE CAPSULE BEFORE BEDTIME 60 Capsule 2 03/23/2023 Active Ipratropium-Albutero l 20-100 MCG/ACT Inhalation Aerosol Solution (Combivent Respimat)Indications :COPD, group B, by GOLD 2017 classification ([facility]) INHALE 1 PUFF BY MOUTH IN THE MORNING, 1 PUFF AT NOON, 1 PUFF IN THE EVENING, AND 1 PUFF BEFORE BEDTIME 12 g 1 04/16/2023 4 Active Esomeprazole Magnesium 40 MG Oral Capsule Delayed ReleaseIndications:G astroesophageal reflux disease without esophagitis TAKE ONE CAPSULE BY MOUTH IN THE MORNING ONE HOUR BEFORE THE FIRST MEAL OF THE DAY. 100 Capsule 1 05/04/2023 Active Nystatin [id number] UNIT/GM External CreamIndications:Int ertrigo Apply topically to affected area 2 times a day. To affacted area for two weeks. 30 g 2 05/10/2023 Active Amitriptyline HCl 10 MG Oral Tablet (Elavil)Indications: Insomnia, unspecified type TAKE 1 TABLET BY MOUTH EVERYDAY AT BEDTIME 100 Tablet 1 05/26/2023 Active documented as of this encounter (statuses as of 06/07/2023) Active Problems Problem Noted Date Diagnosed Date [...] as of this encounter (statuses as of 06/07/2023) Resolved Problems Problem Noted Date Diagnosed Date [...] as of this encounter (statuses as of 06/07/2023) Immunizations Name Administration Dates Next Due COVID-19 mRNA, LNP-s, No Pre serve, 2-Dose Series ([employer]) 03/25/2021,08/27/2020,08/06/2020 Covid-19, Mrna, Lnp-s, Pf, B ivalent, [...] encounter Miscellaneous Notes * Telephone Encounter - Bernie Crawford CPhT - 06/07/2023 11:57 AM ESTNo prescriptions requested or ordered in this encounter * Telephone Encounter - Bernie Crawford CPhT - 06/07/2023 11:57 AM ESTNo prescriptions requested or ordered in this encounter * Telephone Encounter - Sharon Page [facility] - 06/03/2023 1:27 PM EST Postponing until 06/14 I have reviewed the patients controlled substance dispensing history in the Prescription Drug Monitoring Program in compliance with the [facility] regulations before prescribing a controlled substance. PDMP checked on 06/03/2023. Pending Prescriptions: Disp Refills Pregabalin 25 MG Oral Capsule (Lyrica) 60 Cap*2 Sig: TAKE ONE CAPSULE BY MOUTH EVERY MORNING AND TAKE ONE CAPSULE BEFORE BEDTIME Last Visit: 08/21/2022 (in office), Visit date not found (telemedicine) Next Visit: 06/14/2023 Date medication was last filled: 05/25 Date medication is due for refill: 06/23 Pharmacy: [facility] Is this request for a controlled substance? Yes and Urine Drug Screen Not completed Toxicology results: No results found. However, due to the size of the patient record, not all encounters were searched.Please check Results Review for a complete set of results. Please approve if appropriate. Thank you, Sharon Page, PharmD. Clinical Pharmacist [facility] ([facility]) (formerly Telepharmacy) 06/03/2023, 1:27 PM * Telephone Encounter - Bernie Crawford [facility] - 06/03/2023 1:19 PM EST Did you pend patient's preferred pharmacy and medication before forwarding?yes Pharmacy: [facility] Pending Prescriptions: Disp Refills Pregabalin 25 MG Oral Capsule (Lyrica) 60 Cap*2 Sig: TAKE ONE CAPSULE BY MOUTH EVERY MORNING AND TAKE ONE CAPSULE BEFORE BEDTIME Last Visit: 08/21/2022 (in office), Visit date not found (telemedicine) Next Visit: 06/14/2023 If no future appointments scheduled, and last appointment is greater than a year ago, please schedule patient for a follow-up appointment Last date the medication was ordered: 03/23/23 Is this request for a controlled substance?Yes, What was the last refill date 03/23/23 w/ quantity 60 and dosage bid and Urine Drug Screen Not completed Urine Drug Screen:No results found. However, due [...] 11:40 AM EST Office Visit Family Medicine [address] [place] [phone] Daysi Pham MD [address] [place] [address] [place] [address] 08/27/2023 3:00 PM EDT Nurse Only Ancillary [address] [place] [address] [place], Nurse Annual Wellness [address] [place] [address] [place] [address] Health Maintenance Due Date Last Done Comments [...] uncontrolled documented in this encounter Care Teams E Learning Specialist Relationship Specialty Start Date End Date Daysi Pham MD [address] [place] [address] [place] [phone] PCP - General Family Medicine 07/01/17 documented as of this encounter
--- OUTSIDE RECORDS SUMMARY | 2023-11-26 18:50 | External Medical Summary | Summary of Care ---
Author Name Unknown Organization [facility] Address [address] [facility] [place] [address] Phone [phone] Care Team Providers Care Database Marketing Specialist Name Role Phone Daysi Pham MD Primary Care Provide r Reason for Visit * Reason Onset Date Comments Medication Refill 06/07/2023 Encounter Details Date Type Department Care Team (Late st Contact Info) Description 06/07/2023 Refill Dermatology [address] [place] [phone] Diana Shaikh PA-C [address] [place] [address] [place] [phone] Allergies Active Allergy Reactions Criticality Noted Date [...] . 0 Active ASPIRIN 81 MG PO TABSIndications:[employer] Take 1 Tablet by mouth in the morning. 0 Active oxygen GAS Use 2 L/min(Oxygen) as directed at bedtime. 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 Duonebs, 3 ml's every 6 hours as needed 1 Device 0 05/21/2016 Active Multiple Vitamins-Minerals (MULTIVITAMIN WOMEN) TABSIndications:gen Nexio Take by mouth 1 Tablet daily . 0 Active nitroglycerin (NITROSTAT) 0.4 MG SUBLIndications:Chr onic coronary artery disease Place 1 Tab under the tongue as needed for Pain, Chest. May repeat 3 times. If chest pain continues, call 911. 25 Tab 1 01/31/2019 Active Additional Information Patient not taking.Reported on 09/01/2022 Wheat Dextrin (BENEFIBER) powderIndications:g [place] [facility] Take by mouth . 1 teaspoon [...] the morning. 0 Active OneTouch Delica Plus [id number] s:Type 2 diabetes mellitus with hemoglobin A1c [...] than 8.0% ([facility]) USE TO TEST BLOOD SUGAR ONCE [...] 90 Tablet 3 02/26/2023 4 Active Ipratropium [place] 0.03 % Nasal Solution (Atrovent)Indicatio ns:Rhinorrhea ADMINISTER 2 SPRAYS INTO EACH NOSTRIL 4 TIMES A DAY NEEDED FOR RHINITIS. FOR RUNNY NOSE 90 mL 1 03/15/2023 Active Apixaban 5 MG Oral Tablet (Eliquis)Indication s:Cerebrovascular disease, arteriosclerotic, post-stroke,Paroxys mal atrial fibrillation ([facility]) TAKE ONE TABLET BY MOUTH TWICE A DAY 180 Tablet 0 03/15/2023 Active Pregabalin 25 MG Oral Capsule (Lyrica)Indications :Type 2 diabetes, controlled, with neuropathy ([facility]) TAKE ONE CAPSULE BY MOUTH EVERY MORNING AND TAKE ONE CAPSULE BEFORE BEDTIME 60 Capsule 2 03/23/2023 Active Ipratropium-Albuter ol 20-100 MCG/ACT Inhalation Aerosol Solution (Combivent Respimat)Indication s:COPD, group B, by GOLD 2017 classification ([facility]) INHALE 1 PUFF BY MOUTH IN [...] DAY. 100 Capsule 1 05/04/2023 Active Nystatin 781372 UNIT/GM External CreamIndications:In tertrigo Apply topically to [...] mRNA, LNP-s, No Pre serve, 2-Dose Series ([employer]) 03/25/2021,08/27/2020,08/06/2020 Covid-19, Mrna, Lnp-s, Pf, B ivalent, 30 Mcg, IM, 12 yrs and above ([employer]) 04/28/2022 H1N1 2009 Influenza, IM 05/15/2009 Pneumococcal [...] 11:40 AM EST Office Visit Family Medicine [address] [place] [phone] Daysi Pham MD [address] [place] [address] [place] [phone] 08/27/2023 3:00 PM EDT Nurse Only Ancillary [address] [place] [address] [place], Nurse Annual Wellness [address] [place] [address] [place] [phone] Health Maintenance Due Date Last Done Comments [...] filedocumented as of this encounter Care Teams Database Marketing Specialist Relationship Specialty Start Date End Date Daysi Pham MD [address] [place] [address] [place] [address] PCP - General Family Medicine 07/01/17 documented as of this encounter
--- OUTSIDE RECORDS SUMMARY | 2023-11-26 18:50 | External Medical Summary | Summary of Care ---
Author Name Unknown Organization [facility] Address [address] [place] [facility] [place] [address] Phone [phone] Care Team Providers Care Automotive Mechanic Name Role Phone Daysi Pham MD Primary Care Provide r Reason for Visit * Reason Comments Follow Up rash groin/breast ar ea x 2 years Encounter Details Date Type Department Care Team (Late st Contact Info) Description 06/02/2023 3:00 PM EST Office Visit Dermatology [address] [place] [address] Diana Shaikh PA-C [address] [place] [address] [place] [phone] Erythema intertrigo*; Candidal intertrigo Allergies Active Allergy Reactions Criticality Noted Date Comments Amoxicillin Rash 11/19/2011 Levofloxacin Other (Please comment) 11/13/2013 Weakness, lightheadedness, nausea Niacin Er 01/30/2010 Burned throat. Prednisone 09/03/2012 Blood pressure went up. Bupropion Hcl 01/30/2010 documented as of this encounter (statuses as of 06/02/2023) Medications Medication Sig Dispensed Refills Start Date End Date Status VITAMIN B COMPLEX PO CAPSIndications:sup plementation Take by mouth 1 Capsule daily . 0 Active CO Q 10 100 MG PO CAPSIndications:leg pain Take by mouth 100 mg daily . 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 0 Active oxygen GAS Use 2 L/min(Oxygen) as directed at bedtime. 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 Duonebs, 3 ml's every 6 hours as needed 1 Device 0 7 Active Multiple Vitamins-Minerals (MULTIVITAMIN WOMEN) TABSIndications:E-Diversify Yourself Take by mouth 1 Tablet daily . 0 Active nitroglycerin (NITROSTAT) 0.4 MG SUBLIndications:Chr onic coronary artery disease Place 1 Tab under the tongue as needed for Pain, Chest. May repeat 3 times. If chest pain continues, call 911. 25 Tab 1 9 Active Additional Information Patient not taking.Reported on 09/01/2022 Wheat Dextrin (BENEFIBER) powderIndications:g ky [place] Take by mouth . 1 teaspoon daily [...] of less than 8.0% ([facility]) Use once a day Dx: E11.9 1 [...] the morning. 0 Active OneTouch Delica Plus [id number] s:Type 2 diabetes mellitus with hemoglobin A1c [...] Tablet 3 3 02/26/20 24 Active Ipratropium [place] 0.03 % Nasal Solution (Atrovent)Indicatio ns:Rhinorrhea ADMINISTER [...] (Lyrica)Indications :Type 2 diabetes, controlled, with neuropathy ([facility]) TAKE ONE CAPSULE BY MOUTH EVERY MORNING AND TAKE ONE CAPSULE BEFORE BEDTIME 60 Capsule 2 3 Active Ipratropium-Albuter ol 20-100 MCG/ACT Inhalation Aerosol Solution (Combivent Respimat)Indication s:COPD, group B, by GOLD 2017 classification ([facility] [...] DAY. 100 Capsule 1 4 Active Nystatin 675584 UNIT/GM External CreamIndications:In tertrigo Apply topically to [...] as of this encounter (statuses as of 06/02/2023) Active Problems Problem Noted Date Diagnosed Date [...] as of this encounter (statuses as of 06/02/2023) Resolved Problems Problem Noted Date Diagnosed Date [...] as of this encounter (statuses as of 06/02/2023) Immunizations Name Administration Dates Next Due COVID-19 mRNA, LNP-s, No Pre serve, 2-Dose Series ([employer]) 03/25/2021,08/27/2020,08/06/2020 Covid-19, Mrna, Lnp-s, Pf, B ivalent, 30 Mcg, IM, 12 yrs and above ([employer]) 04/28/2022 H1N1 2009 Influenza, IM 05/15/2009 Pneumococcal [...] Progress Notes * Diana Shaikh PA-C - 06/02/2023 2:42 PM EST SUBJECTIVE: History of Present Illness: Pastora Yee is a 72 year old female seen today for rash. Previous appointment date: 09/07/2012 Last attempted treatments include: clobetasol solution for seboporiasis ([place]) Rash under breasts and in groin, present for over 2 years. Bathes BID and uses clotrimazole 1% and Nystatin cream BID without improvement. 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 REVIEW OF SYSTEMS: SKIN: No [...] NONE Reviewed, same day as visit, 0 [facility] Dermatology lab work(s)/pathology report(s) as well as [...] as needed for Allergies.) 90 Tab 3 HealthagenTouch Verio w/Device Kit Use once a day [...] mouth in the morning. OneTouch Delica Plus [id number] USE TO TEST BLOOD SUGAR ONCE A [...] MOUTH EVERY MORNING 90 Tablet 3 Ipratropium [place] 0.03 % Nasal Solution (Atrovent) ADMINISTER 2 [...] OF THE DAY. 100 Capsule 1 Nystatin [id number] UNIT/GM External Cream Apply topically to affected [...] Diana Shaikh PA-C 06/02/2023 2:42 PM Ref: SELF[[id number]] NO STREET ADDRESS AVAILABLE None (office) None (fax) PCP: DAYSI PHAM [address] [place] [address] [place] [address] [phone] documented in this encounter Nursing Notes * Aiyana Estes LPN - 06/02/2023 2:44 PM EST Patient identified by full name and date of . Chief Complaint Patient presents with Follow Up rash groin/breast area x 2 years documented in this encounter Plan of Treatment Upcoming Encounters Date Type Department Care Team (Late st Contact Info) Description 06/14/2023 11:40 AM EST Office Visit Family Medicine [address] [place] [phone] Daysi Pham MD [address] [place] [address] [place] [phone] 08/27/2023 3:00 PM EDT Nurse Only Ancillary [address] [place] [address] [place], Nurse Annual Wellness [address] [place] [address] [place] [phone] Pending Results Name Type Priority Associated Diagnoses [...] history exists Mammogram 11/19/2023 11/18/2022, 07/0 08/2022, 10/31/2021, Additional history exists Diabetic Eye Exam [...] nails documented in this encounter Care Teams Automotive Mechanic Relationship Specialty Start Date End Date Daysi Pham MD [address] [place] [address] [place] [address] PCP - General Family Medicine 07/01/17 documented as of this encounter
--- OUTSIDE RECORDS SUMMARY | 2023-11-26 18:50 | External Medical Summary | Summary of Care ---
Author Name Unknown Organization [facility] Address [address] [facility] [place] [address] Phone [phone] Care Team Providers Care Appraiser Land Name Role Phone Daysi Pham MD Primary Care Provide r Reason for Visit * Reason Comments Follow Up rash groin/breast ar ea x 2 years Encounter Details Date Type Department Care Team (Late st Contact Info) Description 06/02/2023 3:00 PM EST Office Visit Dermatology [address] [place] [address] Diana Shaikh PA-C [address] [place] [address] [place] [address] Erythema intertrigo*; Candidal intertrigo Allergies Active Allergy [...] . 0 Active ASPIRIN 81 MG PO TABSIndications:[employer] Take 1 Tablet by mouth in the morning. 0 Active oxygen GAS Use 2 L/min(Oxygen) as directed at bedtime. 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 Duonebs, 3 ml's every 6 hours as needed 1 Device 0 7 Active Multiple Vitamins-Minerals (MULTIVITAMIN WOMEN) TABSIndications:[place] Take by mouth 1 Tablet daily . 0 Active nitroglycerin (NITROSTAT) 0.4 MG SUBLIndications:Chr onic coronary artery disease Place 1 Tab under the tongue as needed for Pain, Chest. May repeat 3 times. If chest pain continues, call 911. 25 Tab 1 9 Active Additional Information Patient not taking.Reported on 09/01/2022 Wheat Dextrin (BENEFIBER) powderIndications:g ct [place] Take by mouth . 1 teaspoon daily [...] than 8.0% ([facility]) Use once a day Dx: E11.9 1 [...] the morning. 0 Active OneTouch Delica Plus [id number] s:Type 2 diabetes mellitus with hemoglobin A1c goal of less than 8.0% ([facility]) USE TO TEST BLOOD SUGAR ONCE A [...] than 8.0% ([facility]) USE TO TEST BLOOD SUGAR ONCE A [...] Tablet 3 3 02/26/20 24 Active Ipratropium [place] 0.03 % Nasal Solution (Atrovent)Indicatio ns:Rhinorrhea ADMINISTER [...] with neuropathy ([facility]) TAKE ONE CAPSULE BY MOUTH EVERY MORNING AND TAKE ONE CAPSULE BEFORE BEDTIME 60 Capsule 2 3 Active Ipratropium-Albuter ol 20-100 MCG/ACT Inhalation Aerosol Solution (Combivent Respimat)Indication s:COPD, group B, by GOLD 2017 classification ([facility]) INHALE 1 PUFF BY MOUTH IN THE [...] DAY. 100 Capsule 1 4 Active Nystatin 623226 UNIT/GM External CreamIndications:In tertrigo Apply topically to [...] mRNA, LNP-s, No Pre serve, 2-Dose Series ([employer]) 03/25/2021,08/27/2020,08/06/2020 Covid-19, Mrna, Lnp-s, Pf, B ivalent, 30 Mcg, IM, 12 yrs and above ([employer]) 04/28/2022 H1N1 2009 Influenza, IM 05/15/2009 Pneumococcal [...] 1% and Nystatin cream BID without improvement. 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 REVIEW OF SYSTEMS: SKIN: No [...] NONE Reviewed, same day as visit, 0 [facility] Dermatology lab work(s)/pathology report(s) as well [...] as needed for Allergies.) 90 Tab 3 MetapsTouch Verio w/Device Kit Use once a day [...] mouth in the morning. OneTouch Delica Plus [id number] USE TO TEST BLOOD SUGAR ONCE A [...] MOUTH EVERY MORNING 90 Tablet 3 Ipratropium [place] 0.03 % Nasal Solution (Atrovent) ADMINISTER 2 [...] OF THE DAY. 100 Capsule 1 Nystatin [id number] UNIT/GM External Cream Apply topically to affected [...] Diana Shaikh PA-C 06/02/2023 2:42 PM Ref: SELF[[id number]] NO STREET ADDRESS AVAILABLE None (office) None (fax) PCP: DAYSI PHAM [address] [place] [address] [place] [address] [phone] documented in this encounter Nursing Notes * [...] 11:40 AM EST Office Visit Family Medicine [address] [place] [phone] Daysi Pham MD [address] [place] [address] [place] [address] 08/27/2023 3:00 PM EDT Nurse Only Ancillary [address] [place] [address] [place], Nurse Annual Wellness [address] [place] [address] [place] [address] Scheduled Orders Name Type Priority Associated Diagnoses Orde r Schedule CULTURE, WOUND, SUPERFICIAL, AEROBIC Lab Routine Candidal intertrigo Erythema intertrigo Ordered: 06/02/2023 Health Maintenance Due Date Last Done Comments [...] nails documented in this encounter Care Teams Appraiser Land Relationship Specialty Start Date End Date Daysi Pham MD [address] [place] [address] [place] [phone] PCP - General Family Medicine 07/01/17 documented as of this encounter
--- OUTSIDE RECORDS SUMMARY | 2023-11-26 18:51 | External Medical Summary ---
Author Name Unknown Address Unknown Organization K01:[facility] [address] [place] [address] Laboratory Report Ordering Provider Test Date Status SIRIA WAY 06/02/2023 15:34:29 Final Multiple other species of ae robic bacteria.
Light growth normal antonieta
No further workup routinely performed Observation Date Value Abnormality Reference (Units ) Status Bacteria identified in Specimen by Culture 06/02/2023 15:34:29 [id number]^STAPHY LOCOCCUS AUREUS Abnormal Final Moderate Staphylococcus vince us Performing Location [facility] - [address] [place] [address] Ordering Provider Test Date Status SIRIA WAY 06/02/2023 15:34:29 Final Observation Date Value Abnormality Reference (Units ) Status Clindamycin 06/02/2023 15:34:29 <=0.25 Susceptible Final Erythromycin susceptibility 06/02/2023 15:34:29 <=0.25 Susceptible Final Oxacillinsusceptibility 06/02/2023 15:34:29 <=0.25 Susceptible Final Penicillin susceptibility 06/02/2023 15:34:29 >=0.5 Resistant Final Tetracyclinesusceptibility 06/02/2023 15:34:29 <=1 Susceptible Final TMP-SMZ susceptibility 06/02/2023 15:34:29 <=10 Susceptible Final Vancomycinsusceptibility 06/02/2023 15:34:29 1 Susceptible Final Test: Culture, Wound, Superf icial, Aerobic
Specimen Source: Groin
Specimen Type: Superficial Wound
Specimen Date: 06/02/2023 3:34 PM
Result Date: 06/05/2023 2:53 PM
Result Status: Final result
Abnormal: Yes
Resulting Lab: [facility]
[address]
[place] [address]

CULTURE

Moderate Staphylococcus aureus (Abnormal)

Multiple other species of aerobic bacteria.Light growth normal floraNo
further workup routinely performed

SUSCEPTIBILITY

Staphylococcus
aureus
METHOD MICROBROTH
DILUTIONS

CLINDAMYCIN <=0.25 Susceptible
ERYTHROMYCIN <=0.25 Susceptible
OXACILLIN <=0.25 Susceptible
PENICILLIN G >=0.5 Resistant
TETRACYCLINE <=1 Susceptible
TRIMETH/SULFAMETHOXAZOLE <=10 Susceptible
VANCOMYCIN 1 Susceptible

[facility] Performing Location [facility] - [address] [facility] [address]
--- NOTE | 2023-11-26 19:26 | Ultrasound Report ---
ULTRASOUND OF THE CAROTID ARTERIES CLINICAL HISTORY: syncope TECHNIQUE: Real-time, grayscale, and color Doppler sonography of the bilateral carotid arteries is pe rformed. Images are reviewed in the transverse and longitudinal planes. COMPARISON: Comparison is made to prior carotid ultrasound 07/20/2013 FINDINGS: Exam is limited by patient motion. The carotid arteries are patent bilaterally and demonstrate antegrade flow. There is severe atheroscl erotic plaque on the right and severe atherosclerotic plaque on the left. Normal doppler arterial wav eforms are seen throughout. Velocity measurements are listed below. Common carotid peak systolic velocity (cm/sec): RIGHT: 72 LEFT: 94 ICA peak systolic velocity (cm/sec): RIGHT: 72 LEFT: Not measured ICA/CC peak systolic ratio: RIGHT: 1.0 LEFT: Not measured Antegrade flow was shown in the vertebral arteries. The external carotid arteries are patent. IMPRESSION: 1. Highly limited exam. Severe bilateral atherosclerotic disease. There is an occluded vessel on the left which may represent the internal or external cerebral artery. Antegrade flow of the vertebral a rteries noted bilaterally. 2. Antegrade flow is shown in the vertebral arteries. Society of Radiologists in Ultrasound consensus guidelines: Normal: ICA PSV is <125 cm/sec and no plaque or intimal thickening is visible sonographically additional criteria include ICA/CCA PSV ratio <2.0 and ICA EDV <40 cm/sec <50% ICA stenosis: ICA PSV is <125 cm/sec and plaque or intimal thickening is visible sonographically additional criteria include ICA/CCA PSV ratio <2.0 and ICA EDV <40 cm/sec 50-69% ICA stenosis: ICA PSV is 125-230 cm/sec and plaque is visible sonographically additional criteria include ICA/CCA PSV ratio of 2.0-4.0 and ICA EDV of 40-100 cm/sec ?70% ICA stenosis but less than near occlusion: ICA PSV is >230 cm/sec and visible plaque and luminal narrowing are seen at sanchez-scale and color Dopp ler ultrasound (the higher the Doppler parameters lie above the threshold of 230 cm/sec, the greater the likelihood of severe disease) additional criteria include ICA/CCA PSV ratio >4 and ICA EDV >100 cm/sec ACT 112: Negative or not required by law. Electronically signed by: Karl Crouch M.D. 11/26/2023 7:25 PM
[2023-11-26] MEDS ORDERED: ONDANSETRON INJ 2 MG/ML 2 ML VIAL IV PRN (20:33)
[2023-11-26] MEDS ORDERED: GLUCAGON FOR INJ 1 MG VIAL SQ PRN (20:33)
[2023-11-26] MEDS ORDERED: GLUCOSE 40% GEL 15 GM TUBE PO PRN (20:33)
[2023-11-26] MEDS ORDERED: GLUCOSE 10 TAB/TUBE PO PRN (20:33)
[2023-11-26] MEDS ORDERED: DEXTROSE 50% 50 ML SYRINGE IV PRN (20:33)
[2023-11-26] MEDS ORDERED: CARBOHYDRATES FOR HYPOGLYCEMIA PO PRN (20:33)
[2023-11-26] MEDS ORDERED: POLYETHYLENE (MIRALAX) 17 GM PACK PO PRN (20:33)
[2023-11-26] MEDS ORDERED: ARTIFICIAL TEARS OP PRN (20:49)
--- NOTE | 2023-11-26 21:25 | Electrocardiogram Report ---
Test Reason : Blood Pressure : / mmHG Vent. Rate : 060 BPM Atrial Rate : 060 BPM P-R Int : 196 ms QRS Dur : 126 ms QT Int : 472 ms P-R-T Axes : 076 020 -02 degrees QTc Int : 472 ms Normal sinus rhythm Right bundle branch block Abnormal ECG When compared with ECG of 31-JAN-2022 16:23, No significant change was found Confirmed by Ed Posada ([id number]) on 11/26/2023 9:24:53 PM Referred By: Confirmed By:Ed Posada
[2023-11-26] MEDS: ALBUT/IPRATROP 3MG/0.5MG NEB 3 ML VIAL NEB PRN (21:58)
--- NOTE | 2023-11-26 22:00 | Communication Note ---
Date of Service: November 26, 2023 Patient with increased SOB and respiratory distress as per RN. O2 sats 80s No chest pain, no unusual cough symptoms as per patient. PPE Morbidly obese, anxious, no respiratory distress Decreased breath sounds Chest x-ray as per them interpretation cardiomegaly, congestion AP Respiratory failure Pulmonary congestion PCU transfer BiPAP given respiratory acidosis on admission VBG ABG now Stat nebs Diuretic Rx
[2023-11-26] MEDS: PREGABALIN 25 MG CAP PO SCH (22:33)
[2023-11-26] MEDS: ATORVASTATIN 40 MG TAB PO SCH (22:34)
[2023-11-26] MEDS: APIXABAN 5 MG TABLET PO SCH (22:34)
[2023-11-26] MEDS: PANTOprazole 40 MG TAB PO SCH (22:35)
[2023-11-26] MEDS: AMITRIPTYLINE HCL 10 MG TAB PO SCH (22:35)
[2023-11-26] MEDS: ATENOLOL 50 MG TABLET PO SCH (22:36)
[2023-11-26] MEDS: ACETAMINOPHEN 325 MG TAB PO PRN (22:41)
[2023-11-26] MEDS: MAGNESIUM SULFATE / D5W 1 GM/100 ML BAG IV SCH (22:46)
[2023-11-26] MEDS: FUROSEMIDE INJ 20 MG/2 ML VIAL IV ONE (22:46)
[2023-11-26] MEDS: INSULIN ASPART PER UNIT CHARGE SC SCH (22:57)
--- NOTE | 2023-11-26 23:52 | Orthopedic Consultation ---
Date of Consultation November 26, 2023 Assessment & Plan (1) Left ankle injury: IMPRESSION: Left ankle injury likely sprain PLAN: WBAT with walker or crutches. Will Switch to Cam boot RICE PT/OT Pain control per primary service DVT prophylaxis per primary service Continue care per primary service. History of Present Illness Reason for Consultation: Left ankle injury Requesting Physician: Denny Cline MD Attending Physician: Mary Jane Montenegro MD History of Present Illness Ms. Yee is a 73 year old woman who had a syncopal episode while she was cooking that resulted in her rolling her left ankle. She has a complex medical history notable for severe vascular disease, prior stroke complicated by dysarthria, dysphagia she is able to walk and function independently; however, she reports episodes of syncopal collapse where she feels initially warm, then doesn't recall falling to the ground. She denies any post-event confusion. Her left ankle was splinted in the ED. I was consulted to evaluate and treat her left ankle injury. Allergies Allergy/AdvReac Type Severity Reaction Status Date / Time bupropion Allergy Intermediate ZYBAN-HIVES Verified 11/26/23 17:45 niacin Allergy Intermediate BURNED Verified 11/26/23 17:45 THROAT amoxicillin Allergy Mild Rash Verified 11/26/23 17:45 prednisone AdvReac Intermediate ELEVATES Verified 11/26/23 17:45 BLOOD PRESSURE levofloxacin AdvReac Mild Weakness Verified 11/26/23 17:45 antihistamines Allergy BP goes up Uncoded 11/26/23 17:46 Home Medications Medication Instructions Recorded Confirmed Type Systane Preservative Free 1 drp OPB DIRECTED 01/31/22 11/26/23 History apixaban 5 mg tablet (Eliquis) 5 mg PO BID 01/31/22 11/26/23 History aspirin 81 mg tablet,delayed 81 mg PO DAILY 01/31/22 11/26/23 History release atenolol 50 mg tablet 50 mg PO BID 01/31/22 11/26/23 History atorvastatin 80 mg tablet 80 mg PO PM 01/31/22 11/26/23 History cholecalciferol (vitamin D3) 25 25 mcg PO DAILY 01/31/22 11/26/23 History mcg (1,000 unit) tablet (Vitamin D3) coenzyme Q10 100 mg capsule 100 mg PO DAILY 01/31/22 11/26/23 History (CoQ-10) cyclosporine 0.05 % eye drops in a 1 - 2 drp ophthalmic (eye) QID PRN 01/31/22 11/26/23 History dropperette (Restasis) Dry Eyes empagliflozin 10 mg tablet 10 mg PO DAILY 01/31/22 11/26/23 History (Jardiance) esomeprazole magnesium 40 mg 40 mg PO BID 01/31/22 11/26/23 History capsule,delayed release fexofenadine 180 mg tablet 180 mg PO DAILY PRN ALLERGIES 01/31/22 11/26/23 History ipratropium 20 mcg-albuterol 100 1 puff inhalation QID PRN 01/31/22 11/26/23 History mcg/actuation mist for inhalation Shortness Of Breath Or Wheezing (Combivent Respimat) lisinopril 5 mg tablet 5 mg PO DAILY 01/31/22 11/26/23 History multivitamin 1 tab PO DAILY 01/31/22 11/26/23 History nitroglycerin 0.4 mg sublingual 0.4 mg sublingual DIRECTED PRN 01/31/22 11/26/23 History tablet (Nitrostat) Chest Pain pomegranate fruit extract 250 mg 0 mg PO DAILY 01/31/22 11/26/23 History capsule vitamin B complex 1 tab PO DAILY 01/31/22 11/26/23 History amitriptyline 10 mg tablet 10 mg PO HS 11/26/23 11/26/23 History ipratropium bromide 21 mcg (0.03 2 spray intranasal QID PRN Nasal 11/26/23 11/26/23 History %) nasal spray Congestion isosorbide mononitrate 30 mg 330 mg PO QAM 11/26/23 11/26/23 History tablet,extended release 24 hr pregabalin 25 mg capsule 25 mg PO BID 11/26/23 11/26/23 History Patient History Medical History (Updated 11/26/23 @ 18:39 by Jessie Luque PA-C) Peripheral vascular disease Osteoarthritis Irritable bowel syndrome Diverticulitis GERD (gastroesophageal reflux disease) Peripheral neuropathy BLE Stroke LUNAR STROKE 1994 Atrial fibrillation PAST HX/NO PROBLEMS Hypertension Hyperlipidemia On home oxygen therapy 2L NC HS ONLY Chronic obstructive pulmonary disease Surgical History History of bilateral tubal ligation History of colonoscopy History of cholecystectomy History of tooth extraction History of tonsillectomy History of adenoidectomy History of carotid endarterectomy LEFT/RT History of cardiac cath 2003/NO STENTS Family History Family/Other Family history of diabetes mellitus Brother Family history of esophageal cancer Social History Smoking Status: Former smoker Cigarettes Per Day: 10 CIG DAILY; Second Hand Exposure: No; Do You Dip or Chew Tobacco: No; Hx Alcohol Use: No Hx Substance Use: No Preferred Language: Yi 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 BCR < sec. Sensation to light touch unchanged. Able to wig gle her toes. Results & Data Vital Signs (Past 12 Hours) Vital Signs Temp Pulse Pulse Resp BP BP Pulse Ox 11/26/23 22:02 79 14 97 11/26/23 20:58 68 20 154/88 H 89 L 11/26/23 20:58 11/26/23 19:02 71 23 193/99 H 93 11/26/23 17:23 65 11/26/23 16:42 67 141/41 H 94 11/26/23 13:56 61 17 141/41 H 94 11/26/23 13:56 94 11/26/23 13:30 63 11/26/23 13:16 36.5 C 74 20 150/64 H 96 Pulse Ox O2 Del Method O2 Del Method O2 Flow Rate O2 Flow Rate 11/26/23 22:02 Non-rebreather 15 11/26/23 20:58 Nasal Cannula 6 11/26/23 20:58 89 L Nasal Cannula 6 11/26/23 19:02 Nasal Cannula 4 11/26/23 17:23 11/26/23 16:42 Nasal Cannula 4 11/26/23 13:56 Nasal Cannula 4 11/26/23 13:56 Nasal Cannula 4 11/26/23 13:30 11/26/23 13:16 Nasal Cannula 2 Laboratory Results Laboratory Results WBC 8.55 K/ul (4.8-10.8) 11/26/23 13:35 RBC 3.52 M/uL (4.20-5.40) L 11/26/23 13:35 Hgb 11.4 g/dl (12.0-16.0) L 11/26/23 13:35 Hct 35.6 % (37.0-47.0) L 11/26/23 13:35 MCV 101.1 fL (80.0-100.0) H 11/26/23 13:35 MCH 32.4 pg (25.0-34.0) 11/26/23 13:35 MCHC 32.0 g/dL (32.0-36.0) 11/26/23 13:35 RDW Std Deviation 54.0 fL (36.4-46.3) H 11/26/23 13:35 RDW Coeff of Shonda 14.6 % (11.5-14.5) H 11/26/23 13:35 Plt Count 181 K/uL (130-400) 11/26/23 13:35 MPV 10.0 fL (9.4-12.4) 11/26/23 13:35 Immature Gran % (Auto) 0.6 % 11/26/23 13:35 Neut % (Auto) 73.7 % 11/26/23 13:35 Lymph % (Auto) 15.0 % 11/26/23 13:35 Gilchrist % (Auto) 8.8 % 11/26/23 13:35 Eos % (Auto) 1.5 % 11/26/23 13:35 Baso % (Auto) 0.4 % 11/26/23 13:35 Neut # (Auto) 6.31 K/uL (1.40-6.50) 11/26/23 13:35 Lymph # (Auto) 1.28 K/uL (1.20-3.40) 11/26/23 13:35 Gilchrist # (Auto) 0.75 K/uL (0.11-0.59) H 11/26/23 13:35 Eos # (Auto) 0.13 K/uL (0.00-0.50) 11/26/23 13:35 Baso # (Auto) 0.03 K/uL (0.00-0.20) 11/26/23 13:35 Immature Gran # (Auto) 0.05 K/uL (0.01-0.20) 11/26/23 13:35 VBG pH 7.33 (7.36-7.41) L 11/26/23 14:33 VBG pCO2 64 mmHg (38-50) H 11/26/23 14:33 VBG pO2 23 mmHg 11/26/23 14:33 VBG HCO3 34 mmol/L 11/26/23 14:33 VBG O2 Saturation < 60.0 % 11/26/23 14:33 VBG Base Excess 5.7 mEq/L 11/26/23 14:33 Sodium 139 mmol/L (136-145) 11/26/23 13:35 Potassium 4.3 mmol/L (3.5-5.1) 11/26/23 13:35 Chloride 102 mmol/L (98-107) 11/26/23 13:35 Carbon Dioxide 32 mmol/L (21-32) 11/26/23 13:35 Anion Gap 5 (3-11) 11/26/23 13:35 BUN 24 mg/dl (6-23) H 11/26/23 13:35 Creatinine 1.22 mg/dl (0.6-1.2) H 11/26/23 13:35 Est Cr Clr Drug Dosing Not Reportable 11/26/23 13:35 Est GFR ( Amer) 50.5 ml/min 11/26/23 13:35 Est GFR (Non-Af Amer) 43.6 ml/min 11/26/23 13:35 BUN/Creatinine Ratio 19.7 (10-20) 11/26/23 13:35 Glucose 143 mg/dl (70-99(Fasting)) H 11/26/23 13:35 POC Glucose 136 mg/dl (70-99) H 11/26/23 22:49 Calcium 9.6 mg/dl (8.6-10.3) 11/26/23 13:35 Magnesium 1.8 mg/dl (1.7-2.4) 11/26/23 13:35 Total Bilirubin 0.5 mg/dl (0.2-1.0) 11/26/23 13:35 AST 18 U/L (13-39) 11/26/23 13:35 ALT 15 U/L (7-52) 11/26/23 13:35 Alkaline Phosphatase 69 U/L (34-104) 11/26/23 13:35 Troponin I High Sens 13.3 pg/ml (0-14) 11/26/23 13:35 Total Protein 6.9 gm/dl (6.0-8.3) 11/26/23 13:35 Albumin 4.2 gm/dl (3.4-5.0) 11/26/23 13:35 Globulin 2.7 gm/dl (2.5-4.0) 11/26/23 13:35 Albumin/Globulin Ratio 1.6 (0.9-2) 11/26/23 13:35 TSH 1.914 uIu/ml (0.300-4.500) 11/26/23 13:35 Urine Color Yellow 11/26/23 15:57 Urine Appearance Clear (Clear) 11/26/23 15:57 Urine pH 6.0 (4.5-7.5) 11/26/23 15:57 Ur Specific [place] 1.013 (1.000-1.030) 11/26/23 15:57 Urine Protein 1+ (Negative) H 11/26/23 15:57 Urine Glucose (UA) 2+ (Negative) H 11/26/23 15:57 Urine Ketones Negative (Negative) 11/26/23 15:57 Urine Blood Negative (Negative) 11/26/23 15:57 Urine Nitrite Negative (Negative) 11/26/23 15:57 Urine Bilirubin Negative (Negative) 11/26/23 15:57 Urine Urobilinogen Negative (Negative) 11/26/23 15:57 Ur Leukocyte Esterase Negative (Negative) 11/26/23 15:57 Urine WBC (Auto) 0-5 /hpf (0-5) 11/26/23 15:57 Urine RBC (Auto) 0-2 /hpf (0-2) 11/26/23 15:57 U Hyaline Cast (Auto) 0-2 /lpf (0-2) 11/26/23 15:57 U Epithel Cells (Auto) 3-5 /hpf (0-2) H 11/26/23 15:57 Urine Bacteria (Auto) 1+ (None Seen) H 11/26/23 15:57 Adenovirus (PCR) Not Detected (NotDetected) 11/26/23 13:35 B. pertussis DNA (PCR) Not Detected (NotDetected) 11/26/23 13:35 B.parapertussis DNA PCR Not Detected (NotDetected) 11/26/23 13:35 C. pneumoniae DNA (PCR) Not Detected (NotDetected) 11/26/23 13:35 Coronavirus OC43 (PCR) Not Detected (NotDetected) 11/26/23 13:35 Coronavirus HKU1 (PCR) Not Detected (NotDetected) 11/26/23 13:35 Coronavirus 229E (PCR) Not Detected (NotDetected) 11/26/23 13:35 SARS-CoV-2 (PCR) Not Detected (NotDetected) 11/26/23 13:35 Coronavirus NL63 (PCR) Not Detected (NotDetected) 11/26/23 13:35 Human Metapneumovir PCR Not Detected (NotDetected) 11/26/23 13:35 Influenza Type A (PCR) Not Detected (NotDetected) 11/26/23 13:35 Influenza Type B (PCR) Not Detected (NotDetected) 11/26/23 13:35 M. pneumoniae (PCR) Not Detected (NotDetected) 11/26/23 13:35 Parainfluenza 1 (PCR) Not Detected (NotDetected) 11/26/23 13:35 Parainfluenza 2 (PCR) Not Detected (NotDetected) 11/26/23 13:35 Parainfluenza 3 (PCR) Not Detected (NotDetected) 11/26/23 13:35 Parainfluenza 4 (PCR) Not Detected (NotDetected) 11/26/23 13:35 RSV (PCR) Not Detected (NotDetected) 11/26/23 13:35 Entero/Rhino (PCR) Not Detected (NotDetected) 11/26/23 13:35 Impressions Ankle X-Ray 11/26/23 13:38 XR ankle LT min 3V routine HISTORY: 73 years-old Female pain acute left ankle pain COMPARISON: None TECHNIQUE: 3 views of left ankle FINDINGS: Arterial calcifications. Circumferential soft tissue swelling. Benign-appearing ill-defined area of sclerosis involves the distal tibial diaphysis. Subcentimeter corticated ossification adjacent to the medial malleolus is likely chronic. Well-defined linear longitudinal lucency of the distal fibula. No acute fracture, dislocation or osteochondral defect. IMPRESSION: 1. Soft tissue swelling without acute displaced fracture or dislocation. 2. Ill-defined linear lucency of the distal fibula likely represents normal medullary markings. A subtle acute nondisplaced fracture could appear similarly. ACT 112: Negative or not required by law. The above report was generated using voice recognition software. It may contain grammatical, syntax or spelling errors. Electronically signed by: Magan Coleman M.D. 11/26/2023 3:[address] 11/26/23 14:[address] DOSE: 953.61 mGy.cm HISTORY: fall, syncope TECHNIQUE: Multiaxial CT images of the head were performed without the use of intravenous contrast. Automated exposure control was utilized for this study. A dose lowering technique was utilized adhering to the principles of ALARA. Comparison: None. Findings: The paranasal sinuses and mastoid air cells are clear. The calvarium and skull base are intact. There is no mass, hematoma, midline shift, acute infarct. White matter hypodensity is nonspecific but suggestive of microvascular ischemic change. The ventricles and sulci demonstrate mild age-related inv olutional changes. Focal area of encephalomalacia within the left posterior frontal lobe consistent with an old MCA territory infarct. Impression: 1. No acute infarct or intracranial hemorrhage. 2. Old left MCA territory infarct. ACT 112: Negative or not required by law. Electronically signed by: Jose Resendiz M.D. 11/26/2023 3:43 PM Carotid Doppler Study 11/26/23 17:29 ULTRASOUND OF THE CAROTID ARTERIES CLINICAL HISTORY: syncope TECHNIQUE: Real-time, grayscale, and color Doppler sonography of the bilateral carotid arteries is performed. Images are reviewed in the transverse and longitudinal planes. COMPARISON: Comparison is made to prior carotid ultrasound 07/20/2013 FINDINGS: Exam is limited by patient motion. The carotid arteries are patent bilaterally and demonstrate antegrade flow. There is severe atherosclerotic plaque on the right and severe atherosclerotic plaque on the left. Normal doppler arterial waveforms are seen throughout. Velocity measurements are listed below. Common carotid peak systolic velocity (cm/sec): RIGHT: 72 LEFT: 94 ICA peak systolic velocity (cm/sec): RIGHT: 72 LEFT: Not measured ICA/CC peak systolic ratio: RIGHT: 1.0 LEFT: Not measured Antegrade flow was shown in the vertebral arteries. The external carotid arteries are patent. IMPRESSION: 1. Highly limited exam. Severe bilateral atherosclerotic disease. There is an occluded vessel on the left which may represent the internal or external cerebral artery. Antegrade flow of the vertebral arteries noted bilaterally. 2. Antegrade flow is shown in the vertebral arteries. Society of Radiologists in Ultrasound consensus guidelines: Normal: ICA PSV is <125 cm/sec and no plaque or intimal thickening is visible sonographically additional criteria include ICA/CCA PSV ratio <2.0 and ICA EDV <40 cm/sec <50% ICA stenosis: ICA PSV is <125 cm/sec and plaque or intimal thickening is visible sonographically additional criteria include ICA/CCA PSV ratio <2.0 and ICA EDV <40 cm/sec 50-69% ICA stenosis: ICA PSV is 125-230 cm/sec and plaque is visible sonographically additional criteria include ICA/CCA PSV ratio of 2.0-4.0 and ICA EDV of 40-100 cm/sec ?70% ICA stenosis but less than near occlusion: ICA PSV is >230 cm/sec and visible plaque and luminal narrowing are seen at sanchez -scale and color Doppler ultrasound (the higher the Doppler parameters lie above the threshold of 230 cm/sec, the greater the likelihood of severe disease) additional criteria include ICA/CCA PSV ratio >4 and ICA EDV >100 cm/sec ACT 112: Negative or not required by law. Electronically signed by: Karl Crouch M.D. 11/26/2023 7:25 PM
[2023-11-26 23:54] LABS: Base Excess VBG 2.8 mEq/L; HCO3 VBG 30 mmol/L; Oxygen Saturation VBG < 60.0 %; PCO2 VBG 57 mmHg (38-50); PO2 VBG 29 mmHg; pH VBG 7.33 (7.36-7.41)
[2023-11-27] MEDS: Patient's HEIGHT &/or WEIGHT Needed SCH (00:53)
[2023-11-27 06:01] LABS: Hematocrit (blood only) 36.1 % (37.0-47.0); Hemoglobin 11.5 g/dl (12.0-16.0); Mean Corpuscular Hemoglobin 31.6 pg (25.0-34.0); Mean Corpuscular Hgb Conc 31.9 g/dL (32.0-36.0); Mean Corpuscular Volume 99.2 fL (80.0-100.0); Mean Platelet Volume 9.9 fL (9.4-12.4); Platelet Count 181 K/uL (130-400); RDW Coefficient of Variation 14.5 % (11.5-14.5); RDW Standard Deviation 52.5 fL (36.4-46.3); Red Blood Count 3.64 M/uL (4.20-5.40); White Blood Count 8.37 K/ul (4.8-10.8)
[2023-11-27 06:11] LABS: BUN Creatinine Ratio 18.7 (10-20); Calcium 9.7 mg/dl (8.6-10.3); Creatinine Clr Calc Pharmacy 56.8 ml/min; Est GFR (African American) 59.2 ml/min; Est GFR (Non-African American) 51.1 ml/min
--- NOTE | 2023-11-27 07:56 | XRay Report ---
XR chest 1V portable HISTORY: 73 years-old Female sob acute shortness of breath COMPARISON: 11/26/2023 TECHNIQUE: AP view the chest FINDINGS: Cardiac silhouette is enlarged. Pulmonary vascular congestion with interstitial coarsening. Patchy bi basilar and midlung predominant alveolar opacities, right greater than left. Small pleural effusions. Bones appear intact. IMPRESSION: 1. Cardiomegaly with interstitial pulmonary edema. 2. Interval development of mid to lower lung zone predominate right greater than left patchy airspace opacities which may represent alveolar pulmonary edema versus pneumonia. ACT 112: Negative or not required by law. The above report was generated using voice recognition software. It may contain grammatical, syntax o r spelling errors. Electronically signed by: Magan Coleman M.D. 11/27/2023 7:55 AM
--- NOTE | 2023-11-27 08:49 | Cardiology Consultation ---
Date of Consultation November 27, 2023 History of Present Illness Attending Physician: Tre Frank MD History of Present Illness History includes: 1. ASCVD with a chronic total RCA occlusion, 30% LCX stenosis, and luminal ir regularities of all other vessels by 01/2006 cath at [facility]. 2. Ischemic cardiomyopathy with past LVEF 40%, improved to 55% per echo in 03/2022 3. Carotid disease s/p bilateral CEA's with bilateral recurrence 4. Acute left MCA stroke in December 2018 5. Paroxysmal atrial fibrillation observed at [facility] in December 2018. 6. PAD with L>R claudication with leg pain. 7. Subclavian artery stenosis versus occlusion. 8. Right renal artery stenosis. 9. SMA stenosis. 10. PSVT. 11. COPD. 12. Severe nocturnal hypoxemia treated with supplemental oxygen therapy QHS 13. Secondary polycythemia. 14. Type II diabetes mellitus with neuropathy. 15. Pulmonary nodules. 16. Hypertension. 17. Hyperlipidemia. 18. GERD. Allergies Allergy/AdvReac Type Severity Reaction Status Date / Time bupropion Allergy Intermediate ZYBAN-HIVES Verified 11/26/23 17:45 niacin Allergy Intermediate BURNED Verified 11/26/23 17:45 THROAT amoxicillin Allergy Mild Rash Verified 11/26/23 17:45 prednisone AdvReac Intermediate ELEVATES Verified 11/26/23 17:45 BLOOD PRESSURE levofloxacin AdvReac Mild Weakness Verified 11/26/23 17:45 antihistamines Allergy BP goes up Uncoded 11/26/23 17:46 Home Medications Medication Instructions Recorded Confirmed Type Systane Preservative Free 1 drp OPB DIRECTED 01/31/22 11/26/23 History apixaban 5 mg tablet (Eliquis) 5 mg PO BID 01/31/22 11/26/23 History aspirin 81 mg tablet,delayed 81 mg PO DAILY 01/31/22 11/26/23 History release atenolol 50 mg tablet 50 mg PO BID 01/31/22 11/26/23 History atorvastatin 80 mg tablet 80 mg PO PM 01/31/22 11/26/23 History cholecalciferol (vitamin D3) 25 25 mcg PO DAILY 01/31/22 11/26/23 History mcg (1,000 unit) tablet (Vitamin D3) coenzyme Q10 100 mg capsule 100 mg PO DAILY 01/31/22 11/26/23 History (CoQ-10) cyclosporine 0.05 % eye drops in a 1 - 2 drp ophthalmic (eye) QID PRN 01/31/22 11/26/23 History dropperette (Restasis) Dry Eyes empagliflozin 10 mg tablet 10 mg PO DAILY 01/31/22 11/26/23 History (Jardiance) esomeprazole magnesium 40 mg 40 mg PO BID 01/31/22 11/26/23 History capsule,delayed release fexofenadine 180 mg tablet 180 mg PO DAILY PRN ALLERGIES 01/31/22 11/26/23 History ipratropium 20 mcg-albuterol 100 1 puff inhalation QID PRN 01/31/22 11/26/23 History mcg/actuation mist for inhalation Shortness Of Breath Or Wheezing (Combivent Respimat) lisinopril 5 mg tablet 5 mg PO DAILY 01/31/22 11/26/23 History multivitamin 1 tab PO DAILY 01/31/22 11/26/23 History nitroglycerin 0.4 mg sublingual 0.4 mg sublingual DIRECTED PRN 01/31/22 11/26/23 History tablet (Nitrostat) Chest Pain pomegranate fruit extract 250 mg 0 mg PO DAILY 01/31/22 11/26/23 History capsule vitamin B complex 1 tab PO DAILY 01/31/22 11/26/23 History amitriptyline 10 mg tablet 10 mg PO HS 11/26/23 11/26/23 History ipratropium bromide 21 mcg (0.03 2 spray intranasal QID PRN Nasal 11/26/23 11/26/23 History %) nasal spray Congestion isosorbide mononitrate 30 mg 330 mg PO QAM 11/26/23 11/26/23 History tablet,extended release 24 hr pregabalin 25 mg capsule 25 mg PO BID 11/26/23 11/26/23 History Patient History Medical History (Updated 11/26/23 @ 18:39 by Jessie Luque PA-C) Peripheral vascular disease Osteoarthritis Irritable bowel syndrome Diverticulitis GERD (gastroesophageal reflux disease) Peripheral neuropathy BLE Stroke LUNAR STROKE 1994 Atrial fibrillation PAST HX/NO PROBLEMS Hypertension Hyperlipidemia On home oxygen therapy 2L NC HS ONLY Chronic obstructive pulmonary disease Surgical History History of bilateral tubal ligation History of colonoscopy History of cholecystectomy History of tooth extraction History of tonsillectomy History of adenoidectomy History of carotid endarterectomy LEFT/RT History of cardiac cath 2003/NO STENTS Family History Family/Other Family history of diabetes mellitus Brother Family history of esophageal cancer Social History Smoking Status: Former smoker Tobacco Type: Cigarettes Cigarettes Per Day: 10 CIG DAILY; Smoking End Date: 2018; Second Hand Exposure: No; Do You Dip or Chew Tobacco: No; Hx Alcohol Use: No Hx Substance Use: No Preferred Language: Citizen Of [place] Communication Ability: Effective Chrome Polisher Required: No Beliefs That Will Affect Care: None Current Living Situation: Alone Other Information That Helps Us Care for You: No Feels Safe at Home: Yes Safety Concerns: Feels Safe At This Time Assistive Devices: Denture - Upper, Denture - Lower, Hearing Aid - Bilateral and Oxygen - Continuous Assistive Devices Comment: dentures (top and bottom) with patient, hearing aids at home Results & Data Vital Signs (Past 12 Hours) Vital Signs Temp Pulse Pulse Resp BP Pulse Ox Pulse Ox 11/27/23 07:57 37.1 C 68 20 130/63 90 11/27/23 07:44 69 11/27/23 07:44 11/27/23 03:40 36.5 C 68 20 130/81 89 L 11/27/23 01:00 11/27/23 00:30 36.5 C 67 18 123/72 91 11/26/23 22:02 79 14 97 11/26/23 20:58 68 20 154/88 H 89 L 11/26/23 20:58 89 L O2 Del Method O2 Del Method O2 Flow Rate O2 Flow Rate 11/27/23 07:57 Nasal Cannula 4 11/27/23 07:44 11/27/23 07:44 Nasal Cannula 4 11/27/23 03:40 Nasal Cannula 4 11/27/23 01:00 Nasal Cannula 4 11/27/23 00:30 Nasal Cannula 4 11/26/23 22:02 Non-rebreather 15 11/26/23 20:58 Nasal Cannula 6 11/26/23 20:58 Nasal Cannula 6 Laboratory Results Cardiac Enzymes 11/26/23 Range/Units 13:35 AST 18 (13-39) U/L Troponin I High Sens 13.3 (0-14) pg/ml CBC 11/26/23 11/27/23 Range/Units 13:35 05:38 WBC 8.55 8.37 (4.8-10.8) K/ul RBC 3.52 L 3.64 L (4.20-5.40) M/uL Hgb 11.4 L 11.5 L (12.0-16.0) g/dl Hct 35.6 L 36.1 L (37.0-47.0) % Plt Count 181 181 (130-400) K/uL Neut # (Auto) 6.31 (1.40-6.50) K/uL Lymph # (Auto) 1.28 (1.20-3.40) K/uL [place] # (Auto) 0.75 H (0.11-0.59) K/uL Eos # (Auto) 0.13 (0.00-0.50) K/uL Baso # (Auto) 0.03 (0.00-0.20) K/uL Comprehensive Metabolic Panel 11/26/23 11/27/23 Range/Units 13:35 05:38 Sodium 139 139 (136-145) mmol/L Potassium 4.3 4.0 (3.5-5.1) mmol/L Chloride 102 99 (98-107) mmol/L Carbon Dioxide 32 34 H (21-32) mmol/L BUN 24 H 20 (6-23) mg/dl Creatinine 1.22 H 1.07 (0.6-1.2) mg/dl Glucose 143 H 122 H (70-99(Fasting)) mg/dl Calcium 9.6 9.7 (8.6-10.3) mg/dl AST 18 (13-39) U/L ALT 15 (7-52) U/L Alkaline Phosphatase 69 (34-104) U/L Total Protein 6.9 (6.0-8.3) gm/dl Albumin 4.2 (3.4-5.0) gm/dl Intake and Output 11/26/23 11/27/23 11/27/23 22:59 06:59 14:59 Intake Total 320 / 320 Output Total 850 / 850 Balance -530 / -530 Intake: IV 200 / 200 Magnesium Sulfate / D5w 1 gm In 200 / 200 100 ml @ 50 mls/hr IV Q2H [facility] Rx#:[id number] Oral 120 / 120 Output: Urine Amount (Catheter) 850 / 850 Brownlee/Indwelling 850 / 850 Other: Weight 107.7 kg 112.3 kg Weight Measurement Method [facility] Diagnostic Findings Interpretation Summary The primary indication after review was deemed appropriate and the examination was performed. Normal LV chamber size with mild concentric LVH. Normal LV systolic function without regional wall motion abnormality. Calculated LV ejection Fraction = 55% (bi-plane method of discs). Grade II diastolic dysfunction. Moderate aortic valve sclerosis without stenosis. There is moderate mitral annular calcification. The mitral valve chordae are thickened and diffusely calcified. The mitral valve leaflets are mildly calcified. Mitral stenosis is absent. Significant mitral regurgitation is absent. Mild left atrial enlargement. Focal calcifications of the ascending aorta.
--- NOTE | 2023-11-27 08:54 | Electrocardiogram Report ---
Test Reason : Blood Pressure : / mmHG Vent. Rate : 072 BPM Atrial Rate : 072 BPM P-R Int : 222 ms QRS Dur : 140 ms QT Int : 464 ms P-R-T Axes : 052 033 008 degrees QTc Int : 508 ms Sinus rhythm with 1st degree A-V block Right bundle branch block Abnormal ECG When compared with ECG of 26-NOV-2023 13:44, CT interval has increased Confirmed by Robin Love ([id number]) on 11/27/2023 8:54:14 AM Referred By: REFERRED SELF Confirmed By:Robin Love
[2023-11-27] MEDS: CHOLECALCIFEROL 25 MCG (1000 UNITS) TAB PO SCH (09:18)
[2023-11-27] MEDS: ASPIRIN 81 MG ECTAB PO SCH (09:18)
[2023-11-27] MEDS ORDERED: FEXOFENADINE HCL 180 MG TAB PO PRN (11:53)
--- NOTE | 2023-11-27 12:28 | Orthopedic Progress Note ---
Date of Service November 27, 2023 Assessment & Plan (1) Left ankle sprain: Plan: The patient was educated regarding today's findings. Her splint was taken off. Cam boot was ordered. She will be nonweightbearing until it is applied. At that point she may bear weight as tolerated using a walker. She may remove the boot when in bed and for sleep. An Aristeo wrap can be used for light compression to assist with edema control in her foot and ankle. She will be rechecked tomorrow to be sure her heel discomfort is improving. Continue with ice and elevation of the ankle as needed for edema control. The patient was seen in conjunction with Dr. Cline, who also evaluated the patient and concurred with today's diagnosis and treatment plan. Admission and Anticipated Discharge Date Admission Date: November 26, 2023 Supervising Physician Co-Signing Physician Notes I, Dr. Cline, saw and examined the patient. I discussed the management with my PA. I reviewed my PAs note and agree with the documented findings and attest to completing the substantive portion of medical decision making and plan of care I developed. Subjective This 73-year-old female is seen today in her room. She has a known left ankle sprain. The patient states she is getting an irritation on her heel and feels as though it is burning. She is wondering if the splint is rubbing on her heel. She continues to have pain over the lateral aspect of her left ankle. She states the rest of the foot and ankle are nontender. She has no neuropathy, so her general sensation of the lower extremity is altered. She is wondering if the splint can come off. No other orthopedic complaints. Physical Exam Physical Exam: General: Well-developed, well-nourished, obese elderly female, in no acute distress. Laying in bed. Alert and oriented. She is able to sit herself up at the side of the bed without assistance. Skin: Warm and dry with good turgor. No rashes. Postsurgical splint is on the left lower leg. Upon removal, she has no areas of skin breakdown. No areas of ecchymosis or erythema. No edema within the ankle is noted at this time. There is no ulceration or skin breakdown on her heel. Musculoskeletal: The patient has intact motor function of her left knee, ankle, and toes. She is able to plantarflex and dorsiflex the ankle. She has no pain with palpation over the proximal tibia or fibula. No pain over the medial malleolus, calcaneus, midfoot, forefoot, or toes. No pain with palpation over her fifth metatarsal base. She does have pain with palpation over the lateral malleolus, and lateral ligaments. Achilles tendon is palpated through its entirety and found to be intact and without defect. Normal Ackerman test. She continues to have pain with calcaneal tilt testing. Neurologic: Gross sensation is intact across the foot and ankle by soft touch. She notes altered sensation generally to the ankle and foot due to her neuropathy. Peripheral pulses are 2+. Results & Data Vital Signs (Past 12 Hours) Vital Signs Temp Pulse Pulse Resp BP Pulse Ox O2 Del Method 11/27/23 11:09 36.8 C 67 20 130/62 90 Nasal Cannula 11/27/23 07:57 37.1 C 68 20 130/63 90 Nasal Cannula 11/27/23 07:44 69 11/27/23 07:44 Nasal Cannula 11/27/23 03:40 36.5 C 68 20 130/81 89 L Nasal Cannula 11/27/23 01:00 Nasal Cannula 11/27/23 00:30 36.5 C 67 18 123/72 91 Nasal Cannula O2 Flow Rate 11/27/23 11:09 4 11/27/23 07:57 4 11/27/23 07:44 11/27/23 07:44 4 11/27/23 03:40 4 11/27/23 01:00 4 11/27/23 00:30 4 Laboratory Results CBC obtained this morning shows a white count of 8.37. H&H of 11.5 and 36.1. Platelets 181,000. (1) Left ankle sprain Encounter type: initial encounter
--- NOTE | 2023-11-27 14:33 | Hospitalist Progress Note ---
Date of Service November 27, 2023 Assessment & Plan (1) Syncope and collapse: Plan: Patient is 73 year old female with PMH paroxysmal atrial fibrillation anticoagulated on Eliquis, chronic hypoxic respiratory failure on 2L oxygen, COPD, DM II, CVA, CAD, history ischemic cardiomyopathy with EF 55% on 2021 echo, HTN, dyslipidemia, carotid artery disease s/p bilateral CEA's with bilateral recurrence, PVD, subclavian stenosis, SMA stenosis, CKD III, and others listed below presented to ER with c/o recurrent syncope with syncope today resulting in left ankle injury Syncope Carotid artery disease S/P bilateral carotid endarterectomy --CT head:No acute infarct or intracranial hemorrhage. Old left MCA territory infarct. --Carotid Doppler:Highly limited exam. Severe bilateral atherosclerotic disease. There is an occluded vessel on the left which may represent the internal or external carotid artery. Antegrade flow of the vertebral arteries noted bilaterally. Antegrade flow is shown in the vertebral arteries. --ECHO: EF 55 to 60%. Trace mitral regurgitation. Normal inferior vena cava size and collapsibility with sniff indicates a normal right atrial pressure of 3 mmHg -- Orthostatics pending -- Currently no issues on telemetry Currently isosorbide, lisinopril on hold Monitor blood pressure and adjust medications as able May need to follow-up with vascular surgery as outpatient Cardiology consulted Abnormal urine analysis Possible UTI Patient admits to have dysuria Urine culture not contributory Empirically started on Rocephin (2) Left ankle injury: Plan: Left Ankle Sprain Secondary to Trauma due to syncope --Left ankle x-ray: Soft tissue swelling without acute displaced fracture or dislocation. Ill-defined linear lucency of the distal fibula likely represents normal medullary markings. A subtle acute nondisplaced fracture could appear similarly. -- Continue cam boot Weightbearing as tolerated using walker/with cam boot in place Aristeo wrap as needed Appreciate orthopedics input Fall precautions PT OT eval after cam boot is arranged (3) Acute on chronic respiratory failure with hypoxia and hypercapnia: Plan: COPD Chronic oxygen dependency --2L oxygen at baseline --BioFire negative No signs of COPD exacerbation currently Mild pulmonary edema Received a dose of Lasix Monitor volume status Continue nebs as needed (4) Peripheral vascular disease: Plan: PVD, carotid stenosis s/p bilateral CEA with recurrence, subclavian stenosis, SMA stenosis Continue aspirin, atorvastatin [place] [facility] [place] who recommended reser ving surgical intervention for severe symptomatology or limb salvage. Will need further evaluation by vascular surgery as Inpatient Vs outpatient (5) Stroke: Plan: H/O CVA with residual dysarthria Continue aspirin, atorvastatin (6) Paroxysmal atrial fibrillation: Plan: Reported history PAF during hospitalization at [facility] [place] Continue Eliquis, atenolol (7) CAD (coronary artery disease): Plan: Coronary artery disease H/o ischemic cardiomyopathy Updated echo as above Continue aspirin, atorvastatin Resume isosorbide and lisinopril as able (8) CKD (chronic kidney disease), stage III: Plan: Baseline 1.2 Monitor renal function Avoid nephrotoxic agents as able DM II Update HbA1c Jardiance on hold Continue insulin while hospitalized Monitor BGs DVT Px Eliquis CODE STATUS Full Code Admission and Anticipated Discharge Date Admission Date: November 26, 2023 Subjective Patient is seen and examined at bedside Poor historian secondary to chronic dysarthria from prior CVA States having left ankle pain Also reports rhinitis Admits to have dysuria but denies any hematuria Denies any chest pain, dyspnea, nausea, vomiting, abdominal pain, dizziness No other complaints Review of Systems Review of Systems: All systems reviewed & are unremarkable except as noted in Subjective Physical Exam Physical Exam: Physical Exam: Vitals signs as noted above General Appearance:Morbidly Obese, no apparent distress Head: normocephalic, Atraumatic Eyes: normal inspection, EOMI Neck: supple, Trachea midline Respiratory/Chest: Decreased breath sounds, CTA, No accessory muscle use Cardiovascular: S1, S2, faint murmur Abdomen/GI:Soft, Non tender, Bowel sounds present Extremities/Musculoskeletal:normal inspection, no edema, Left Ankle tender Neurologic/Psych:AAOX3, + facial droop, chronic right-sided sensory deficit, otherwise grossly no focal neurological deficits, + chronic dysarthria Skin: normal color, warm Results & Data Results & Data Vital Signs (Past 12 Hours) Vital Signs Temp Pulse Pulse Resp BP Pulse Ox O2 Del Method 11/27/23 11:09 36.8 C 67 20 130/62 90 Nasal Cannula 11/27/23 07:57 37.1 C 68 20 130/63 90 Nasal Cannula 11/27/23 07:44 69 11/27/23 07:44 Nasal Cannula 11/27/23 03:40 36.5 C 68 20 130/81 89 L Nasal Cannula O2 Flow Rate 11/27/23 11:09 4 11/27/23 07:57 4 11/27/23 07:44 11/27/23 07:44 4 11/27/23 03:40 4 Laboratory Results Short CBC 11/27/23 Range/Units 05:38 WBC 8.37 (4.8-10.8) K/ul Hgb 11.5 L (12.0-16.0) g/dl Hct 36.1 L (37.0-47.0) % Plt Count 181 (130-400) K/uL BMP 11/27/23 05:38 Sodium 139 Potassium 4.0 Chloride 99 Carbon Dioxide 34 H BUN 20 Creatinine 1.07 Glucose 122 H Calcium 9.7 Urine 11/26/23 Range/Units 15:57 Urine Color Yellow Urine Appearance Clear (Clear) Urine pH 6.0 (4.5-7.5) Ur Specific [place] 1.013 (1.000-1.030) Urine Protein 1+ H (Negative) Urine Glucose (UA) 2+ H (Negative)
[2023-11-27] MEDS: cefTRIAXone SODIUM 2,000 MG/50 ML BAG IV SCH (15:06)
--- NOTE | 2023-11-27 18:19 | Cardiology Consultation ---
Date of Consultation November 27, 2023 Assessment & Plan (1) Syncope and collapse: (2) Acute and chronic respiratory failure with hypercapnia: (3) CAD (coronary artery disease): (4) Paroxysmal atrial fibrillation: (5) Acute on chronic respiratory failure with hypoxia and hypercapnia: (6) Left ankle injury: (7) CKD (chronic kidney disease), stage III: Plan 73-year-old with 2 episodes of syncope resulting in ankle injury concerning for possible bradycardia arrhythmias Patient has known paroxysmal atrial fibrillation and is on atenolol 50 mg twice daily and is currently heart rates of 60 Coronary artery disease stable without any anginal symptoms Ischemic cardiomyopathy recent EF 55% Significant peripheral vascular disease with carotid artery disease subclavian stenosis and mesenteric artery stenosis Plan: Concern for bradyarrhythmia reduce atenolol to 50 mg daily continue with telemetry will plan for ZIO patch monitor as outpatient Heart rate remains low might need to reduce atenolol to 25 mg Continue Eliquis History of Present Illness Reason for Consultation: Syncope Requesting Physician: [facility] hospitalist Attending Physician: Tre Frank MD History of Present Illness 73-year-old female with known history of paroxysmal atrial fibrillation on Eliquis, coronary artery disease with chronic occlusion of the right coronary artery and mild nonobstructive coronary artery disease, COPD, diabetes mellitus, history of CVA, coronary artery disease ischemic cardiomyopathy EF 40% in the past which has improved with EF 55%, hypertension, chronic hypoxic respiratory failure, peripheral vascular disease carotid artery with bilateral carotid endarterectomy, subclavian stenosis, aphasia secondary to prior stroke admitted with syncopal episodes First episode was 3 weeks ago . Patient was cooking when she felt hot feeling in her head flushed and passed out onto the floor. Denies chest pain or shortness of breath prior to the event. Her baseline functional capacity has not changed Has some lower extremity edema Similar episode occurred 3 weeks ago. She has been having episodes of feeling flushed but has not passed out in the past. Allergies Allergy/AdvReac Type Severity Reaction Status Date / Time bupropion Allergy Intermediate ZYBAN-HIVES Verified 11/26/23 17:45 niacin Allergy Intermediate BURNED Verified 11/26/23 17:45 THROAT amoxicillin Allergy Mild Rash Verified 11/26/23 17:45 prednisone AdvReac Intermediate ELEVATES Verified 11/26/23 17:45 BLOOD PRESSURE levofloxacin AdvReac Mild Weakness Verified 11/26/23 17:45 antihistamines Allergy BP goes up Uncoded 11/26/23 17:46 Home Medications Medication Instructions Recorded Confirmed Type Systane Preservative Free 1 drp OPB DIRECTED 01/31/22 11/26/23 History apixaban 5 mg tablet (Eliquis) 5 mg PO BID 01/31/22 11/26/23 History aspirin 81 mg tablet,delayed 81 mg PO DAILY 01/31/22 11/26/23 History release atenolol 50 mg tablet 50 mg PO BID 01/31/22 11/26/23 History atorvastatin 80 mg tablet 80 mg PO PM 01/31/22 11/26/23 History cholecalciferol (vitamin D3) 25 25 mcg PO DAILY 01/31/22 11/26/23 History mcg (1,000 unit) tablet (Vitamin D3) coenzyme Q10 100 mg capsule 100 mg PO DAILY 01/31/22 11/26/23 History (CoQ-10) cyclosporine 0.05 % eye drops in a 1 - 2 drp ophthalmic (eye) QID PRN 01/31/22 11/26/23 History dropperette (Restasis) Dry Eyes empagliflozin 10 mg tablet 10 mg PO DAILY 01/31/22 11/26/23 History (Jardiance) esomeprazole magnesium 40 mg 40 mg PO BID 01/31/22 11/26/23 History capsule,delayed release fexofenadine 180 mg tablet 180 mg PO DAILY PRN ALLERGIES 01/31/22 11/26/23 History ipratropium 20 mcg-albuterol 100 1 puff inhalation QID PRN 01/31/22 11/26/23 History mcg/actuation mist for inhalation Shortness Of Breath Or Wheezing (Combivent Respimat) lisinopril 5 mg tablet 5 mg PO DAILY 01/31/22 11/26/23 History multivitamin 1 tab PO DAILY 01/31/22 11/26/23 History nitroglycerin 0.4 mg sublingual 0.4 mg sublingual DIRECTED PRN 01/31/22 11/26/23 History tablet (Nitrostat) Chest Pain pomegranate fruit extract 250 mg 0 mg PO DAILY 01/31/22 11/26/23 History capsule vitamin B complex 1 tab PO DAILY 01/31/22 11/26/23 History amitriptyline 10 mg tablet 10 mg PO HS 11/26/23 11/26/23 History ipratropium bromide 21 mcg (0.03 2 spray intranasal QID PRN Nasal 11/26/23 11/26/23 History %) nasal spray Congestion isosorbide mononitrate 30 mg 330 mg PO QAM 11/26/23 11/26/23 History tablet,extended release 24 hr pregabalin 25 mg capsule 25 mg PO BID 11/26/23 11/26/23 History Patient History Medical History (Updated 11/26/23 @ 18:39 by Jessie Luque PA-C) Peripheral vascular disease Osteoarthritis Irritable bowel syndrome Diverticulitis GERD (gastroesophageal reflux disease) Peripheral neuropathy BLE Stroke LUNAR STROKE 1994 Atrial fibrillation PAST HX/NO PROBLEMS Hypertension Hyperlipidemia On home oxygen therapy 2L NC HS ONLY Chronic obstructive pulmonary disease Surgical History History of bilateral tubal ligation History of colonoscopy History of cholecystectomy History of tooth extraction History of tonsillectomy History of adenoidectomy History of carotid endarterectomy LEFT/RT History of cardiac cath 2003/NO STENTS Family History Family/Other Family history of diabetes mellitus Brother Family history of esophageal cancer Social History Smoking Status: Former smoker Tobacco Type: Cigarettes Cigarettes Per Day: 10 CIG DAILY; Smoking End Date: 2018; Second Hand Exposure: No; Do You Dip or Chew Tobacco: No; Hx Alcohol Use: No Hx Substance Use: No Preferred Language: Frisian Communication Ability: Effective [employer] Required: No Beliefs That Will Affect Care: None Current Living Situation: Alone Other Information That Helps Us Care for You: No Feels Safe at Home: Yes Safety Concerns: Feels Safe At This Time Assistive Devices: Denture - Upper, Denture - Lower, Hearing Aid - Bilateral and Oxygen - Continuous Assistive Devices Comment: dentures (top and bottom) with patient, hearing aids at home Review of Systems Constitutional: + body aches, + fatigue and + anorexia Eyes: + tunnel vision Respiratory: + cough, + dyspnea on exertion and + whe ezing Cardiovascular: + dyspnea and + syncope; no chest pain w ith activity and no dyspnea at rest Gastrointestinal: no abdominal pain and no nausea Musculoskeletal: + back pain and + neck pain Neurologic: + unsteadiness and + abnormal speech Psychiatric: no depression Physical Exam Constitutional: + overweight; no acute distress Respiratory: normal respiratory effort, lungs clear to auscultation Cardiovascular: Rate/Rhythm: regular rate and regular rhythm Heart Sounds: + murmur Gastrointestinal (Abdomen): normal bowel sounds, soft, nontender, no hepatosplenomegaly Neurologic: Speech / Cognition: + expressive aphasia Results & Data Vital Signs (Past 12 Hours) Vital Signs Temp Pulse Pulse Resp BP Pulse Ox O2 Del Method 11/27/23 15:54 67 11/27/23 15:14 36.6 C 68 19 114/57 L 92 Nasal Cannula 11/27/23 11:09 36.8 C 67 20 130/62 90 Nasal Cannula 11/27/23 07:57 37.1 C 68 20 130/63 90 Nasal Cannula 11/27/23 07:44 69 11/27/23 07:44 Nasal Cannula O2 Flow Rate 11/27/23 15:54 11/27/23 15:14 4 11/27/23 11:09 4 11/27/23 07:57 4 11/27/23 07:44 11/27/23 07:44 4 Laboratory Results CBC 11/27/23 Range/Units 05:38 WBC 8.37 (4.8-10.8) K/ul RBC 3.64 L (4.20-5.40) M/uL Hgb 11.5 L (12.0-16.0) g/dl Hct 36.1 L (37.0-47.0) % Plt Count 181 (130-400) K/uL Comprehensive Metabolic Panel 11/27/23 Range/Units 05:38 Sodium 139 (136-145) mmol/L Potassium 4.0 (3.5-5.1) mmol/L Chloride 99 (98-107) mmol/L Carbon Dioxide 34 H (21-32) mmol/L BUN 20 (6-23) mg/dl Creatinine 1.07 (0.6-1.2) mg/dl Glucose 122 H (70-99(Fasting)) mg/dl Calcium 9.7 (8.6-10.3) mg/dl Intake and Output 11/27/23 11/27/23 11/27/23 06:59 14:59 22:59 Intake Total 320 / 320 480 / 530 50 / 530 Output Total 850 / 850 400 / 400 Balance -530 / -530 80 / 130 50 / 130 Intake: IV 200 / 200 50 / 50 Magnesium Sulfate / D5w 1 gm In 200 / 200 100 ml @ 50 mls/hr IV Q2H [facility] Rx#:[id number] SODIUM 2,000 mg In 50 / 50 50 ml @ 100 mls/hr IV Q24H [facility] Rx#:[id number] Oral 120 / 120 480 / 480 Output: Urine Amount (Catheter) 850 / 850 400 / 400 [place]/Indwelling 850 / 850 400 / 400 Other: Weight 112.3 kg Weight Measurement Method Built in [facility] Medications Administered Home Medications Medication Instructions Recorded Confirmed Last Taken Systane Preservative Free 1 drp OPB DIRECTED 01/31/22 11/26/23 Unknown apixaban 5 mg tablet (Eliquis) 5 mg PO BID 01/31/22 11/26/23 11/26/23 08:00 aspirin 81 mg tablet,delayed 81 mg PO DAILY 01/31/22 11/26/23 Unknown release atenolol 50 mg tablet 50 mg PO BID 01/31/22 11/26/23 Unknown atorvastatin 80 mg tablet 80 mg PO PM 01/31/22 11/26/23 Unknown cholecalciferol (vitamin D3) 25 25 mcg PO DAILY 01/31/22 11/26/23 Unknown mcg (1,000 unit) tablet (Vitamin D3) coenzyme Q10 100 mg capsule 100 mg PO DAILY 01/31/22 11/26/23 Unknown (CoQ-10) cyclosporine 0.05 % eye drops in a 1 - 2 drp ophthalmic (eye) QID PRN 01/31/22 11/26/23 Unknown dropperette (Restasis) Dry Eyes empagliflozin 10 mg tablet 10 mg PO DAILY 01/31/22 11/26/23 Unknown (Jardiance) esomeprazole magnesium 40 mg 40 mg PO BID 01/31/22 11/26/23 Unknown capsule,delayed release fexofenadine 180 mg tablet 180 mg PO DAILY PRN ALLERGIES 01/31/22 11/26/23 Unknown ipratropium 20 mcg-albuterol 100 1 puff inhalation QID PRN 01/31/22 11/26/23 Unknown mcg/actuation mist for inhalation Shortness Of Breath Or Wheezing (Combivent Respimat) lisinopril 5 mg tablet 5 mg PO DAILY 01/31/22 11/26/23 Unknown multivitamin 1 tab PO DAILY 01/31/22 11/26/23 Unknown nitroglycerin 0.4 mg sublingual 0.4 mg sublingual DIRECTED PRN 01/31/22 11/26/23 Unknown tablet (Nitrostat) Chest Pain pomegranate fruit extract 250 mg 0 mg PO DAILY 01/31/22 11/26/23 Unknown capsule vitamin B complex 1 tab PO DAILY 01/31/22 11/26/23 Unknown amitriptyline 10 mg tablet 10 mg PO HS 11/26/23 11/26/23 Unknown ipratropium bromide 21 mcg (0.03 2 spray intranasal QID PRN Nasal 11/26/23 11/26/23 Unknown %) nasal spray Congestion isosorbide mononitrate 30 mg 330 mg PO QAM 11/26/23 11/26/23 Unknown tablet,extended release 24 hr pregabalin 25 mg capsule 25 mg PO BID 11/26/23 11/26/23 Unknown Active Medications Generic Name Dose Route Start Last Admin Trade Name Freq PRN Reason Stop Dose Admin Acetaminophen 650 mg 11/26/23 20:33 11/26/23 22:41 Acetaminophen 325 Mg Tab PO 12/26/23 20:32 650 mg Q4H PRN Administration Pain or Fever Albuterol 3 ml 11/26/23 20:33 11/26/23 21:58 Albut/Ipratrop 3mg/0.5mg Neb 3 Ml Vial NEB 12/26/23 20:32 3 ml Q6R PRN Administration Shortness Of Breath Or Wheezing Protocol Amitriptyline HCl 10 mg 11/26/23 21:00 11/26/23 22:35 Amitriptyline Hcl 10 Mg Tab PO 12/26/23 20:59 10 mg HS LIAM Administration Apixaban 5 mg 11/26/23 21:00 11/27/23 10:08 Apixaban 5 Mg Tablet PO 12/26/23 20:59 5 mg BID LIAM Administration Aspirin 81 mg 11/27/23 09:00 11/27/23 09:18 Aspirin 81 Mg Ectab PO 12/27/23 08:59 81 mg DAILY LIAM Administration Atenolol 50 mg 11/26/23 21:00 11/27/23 10:09 Atenolol 50 Mg Tablet PO 12/26/23 20:59 50 mg BID LIAM Administration Atorvastatin Calcium 80 mg 11/26/23 21:00 11/26/23 22:34 Atorvastatin 40 Mg Tab PO 12/26/23 20:59 80 mg PM LIAM Administration Ceftriaxone Sodium 2,000 mg in 50 mls @ 100 mls/hr 11/27/23 16:00 11/27/23 15:46 Rocephin IV 12/02/23 15:59 Infused Q24H LIAM Infusion Insulin Aspart 0 units 11/26/23 21:00 11/27/23 17:04 Insulin Aspart Per Unit Charge SC 12/26/23 20:59 Not Given ACHS LIAM Pantoprazole Sodium 40 mg 11/26/23 21:00 11/27/23 10:09 Pantoprazole 40 Mg Tab PO 12/26/23 20:59 40 mg BID LIAM Administration Protocol Pregabalin 25 mg 11/26/23 21:00 11/27/23 10:08 Pregabalin 25 Mg Cap PO 12/26/23 20:59 25 mg BID LIAM Administration Vitamin D 25 mcg 11/27/23 09:00 11/27/23 09:18 Cholecalciferol 25 Mcg (1000 Units) Tab PO 12/27/23 08:59 25 mcg DAILY LIAM Administration ECG Additional Comments: Sinus rhythm with first-degree AV block right bundle branch block.
[2023-11-28 05:53] LABS: HCO3 VBG 35 mmol/L; Oxygen Saturation VBG 79.8 %; PCO2 VBG 61 mmHg (38-50); PO2 VBG 46 mmHg; pH VBG 7.36 (7.36-7.41)
[2023-11-28 05:59] LABS: Hematocrit (blood only) 35.6 % (37.0-47.0); Hemoglobin 11.6 g/dl (12.0-16.0); Mean Corpuscular Hemoglobin 31.9 pg (25.0-34.0); Mean Corpuscular Hgb Conc 32.6 g/dL (32.0-36.0); Mean Corpuscular Volume 97.8 fL (80.0-100.0); Platelet Count 173 K/uL (130-400); RDW Coefficient of Variation 14.1 % (11.5-14.5); RDW Standard Deviation 51.2 fL (36.4-46.3); Red Blood Count 3.64 M/uL (4.20-5.40); White Blood Count 7.46 K/ul (4.8-10.8)
[2023-11-28 06:14] LABS: BUN Creatinine Ratio 22.3 (10-20); Calcium 9.5 mg/dl (8.6-10.3); Creatinine Clr Calc Pharmacy 54.1 ml/min; Est GFR (Non-African American) 48.4 ml/min; Magnesium 1.9 mg/dl (1.7-2.4); Potassium 4.1 mmol/L (3.5-5.1)
[2023-11-28 07:23] LABS: Estimated Average Glucose 146 mg/dl; Hemoglobin A1C 6.7 % (4.5-5.6)
--- NOTE | 2023-11-28 08:44 | Orthopedic Progress Note ---
Date of Service November 28, 2023 Assessment & Plan (1) Left ankle sprain: Plan: The patient was educated regarding today's findings. She has not received her cam boot yet. I obtained one from the store room and she was fit appropriately. She may be weightbearing as tolerated in the boot. Start physical therapy to assist with ambulation and walker use. Perform gentle range of motion exercises when nonweightbearing. She may be out of the boot when in bed or sleeping. Continue with ice and elevation to reduce pain and swelling. Will reassess in 48 hours to see how the boot is feeling and to be sure she is not developing pressure on her heel. The patient was seen in conjunction with Dr. Cline, who also evaluated the patient and concurred with today's diagnosis and treatment plan. Admission and Anticipated Discharge Date Admission Date: November 26, 2023 Supervising Physician Co-Signing Physician Notes I, Dr. Cline, saw and examined the patient. I discussed the management with my PA. I reviewed my PAs note and agree with the documented findings and attest to completing the substantive portion of medical decision making and plan of care I developed. Subjective This 73-year-old female seen today in her room. She was not out of bed yesterday. She states the ankle continues to be painful, but it is better than yesterday. She has been able to move the ankle freely now that the splint has been removed. She has not received her cam boot yet. Her heel feels better now that the splint has been removed. No new complaints. She denies any change in her distal neuropathy. Physical Exam 2 Physical Exam: General: Well-developed, well-nourished, obese elderly female, in no acute distress. Laying in bed. Alert and oriented. Skin: Warm and dry with good turgor. No rashes. She has no areas of skin breakdown. Mild ecchymosis has developed over the lateral ankle. No erythema. Mild edema within the ankle is noted at this time. There is no ulceration or skin breakdown on her heel. Musculoskeletal: The patient has intact motor function of her left knee, ankle, and toes. She is able to plantarflex and dorsiflex the ankle. She has no pain with palpation over the proximal tibia or fibula. No pain over the medial malleolus, calcaneus, midfoot, forefoot, or toes. No pain with palpation over her fifth metatarsal base. She does have pain with palpation over the lateral malleolus, and lateral ligaments. Achilles tendon is palpated through its entirety and found to be intact and without defect. Normal Ackerman test. She continues to have pain with calcaneal tilt testing. Neurologic: Gross sensation is intact across the foot and ankle by soft touch. She notes altered sensation generally to the ankle and foot due to her neuropa thy. Peripheral pulses are 2+. Results & Data Vital Signs (Past 12 Hours) Vital Signs Temp Pulse Pulse Resp BP Pulse Ox O2 Del Method 11/28/23 07:15 82 11/28/23 07:15 Nasal Cannula 11/28/23 07:12 37.0 C 79 19 159/86 H 91 Nasal Cannula 11/28/23 02:43 36.7 C 60 18 128/60 93 Nasal Cannula 11/27/23 22:49 36.7 C 68 18 130/81 94 Nasal Cannula 11/27/23 21:11 82 18 91 Nasal Cannula O2 Flow Rate 11/28/23 07:15 11/28/23 07:15 4 11/28/23 07:12 3 11/28/23 02:43 11/27/23 22:49 11/27/23 21:11 3 Laboratory Results CBC obtained today shows a white count of 7.46. H&H of 11.6 and 35.6. Platelets 173,000. Sodium 137, potassium 4.1, chloride 97, CO2 33. BUN of 25 and creatinine 1.12. Glucose this morning 127. (1) Left ankle sprain Encounter type: initial encounter
[2023-11-28] MEDS: ATENOLOL 50 MG TABLET PO SCH (09:35)
[2023-11-28] MEDS: oxyCODONE HCL IR 5 MG TAB (IMMEDIATE RELEASE) PO PRN (12:42)
[2023-11-28] MEDS: ADVANCED PROBIOTIC 625 MG CAPSULE PO SCH (13:03)
--- NOTE | 2023-11-28 15:50 | Cardiology Progress Note ---
Date of Service November 28, 2023 Assessment & Plan (1) Syncope and collapse: (2) Acute and chronic respiratory failure with hypercapnia: (3) CAD (coronary artery disease): (4) Paroxysmal atrial fibrillation: (5) Acute on chronic respiratory failure with hypoxia and hypercapnia: (6) Left ankle injury: (7) CKD (chronic kidney disease), stage III: Plan 11/27/[address] Dumont 73-year-old with 2 episodes of syncope resulting in ankle injury concerning for possible bradycardia arrhythmias Patient has known paroxysmal atrial fibrillation and is on atenolol 50 mg twice daily and is currently heart rates of 60 Coronary artery disease stable without any anginal symptoms Ischemic cardiomyopathy recent EF 55% Significant peripheral vascular disease with carotid artery disease subclavian stenosis and mesenteric artery stenosis Plan: Concern for bradyarrhythmia reduce atenolol to 50 mg daily continue with telemetry will plan for ZIO patch monitor as outpatient Heart rate remains low might need to reduce atenolol to 25 mg Continue Eliquis 11/28/23: No recurrent bradycardia. She had a bout of atrial fib overnight, controlled rates. Returned to NSR. HR currently in the 70's. Continue lower dose atenolol at 50 mg daily. Continue Eliquis Order ZIO monitor as outpatient. No further cardiac testing warranted as inpatient. Will sign off. Please notify monitor tech cardiology provider with additional questions or concerns. Case discussed with Dr. Dumont I spent a total of 25 minutes on the date of service in preparation, delivery, and documentation of the care provided to this patient, excluding any time spent in the performance of separately billed services. Naya Kiser PA-C Department of Cardiology, [facility] This chart was completed in part utilizing Speech Voice Recognition Software. Grammatical errors, random word insertions, pronoun errors, and incomplete sentences are an occasional consequence of this system due to software limitations, ambient noise, and hardware issues. Any formal questions or concerns about the content, text, or information contained within the body of this dictation should be directly addressed to the provider for clarification. Admission and Anticipated Discharge Date Admission Date: November 26, 2023 Supervising Physician Co-Signing Physician Notes I have reviewed the advanced practitioner's documentation on the date of service referenced in note, and I agree with, and take responsibility for the plan of care. overnight episode of Afib converted back to sinus continue with lower dose of atenolol at 50 daily and Zio patch monitor as outpatient I spent a total of [10] minutes coordinating, documenting, and providing care for this patient excluding time spent in the performance of separately billed services or time spent by another provider. Subjective Patient resting in bed. Denies acute complaints. Limited review of systems given aphasia. No chest pain, SOB or dizziness. Review of Systems Review of Systems: All systems reviewed & are unremarkable except as noted in HPI & below Physical Exam Constitutional: + overweight; no acute distress Respiratory: normal respiratory effort, lungs clear to auscultation Cardiovascular: Rate/Rhythm: regular rate and regular rhythm Heart Sounds: + murmur Gastrointestinal (Abdomen): normal bowel sounds, soft, nontender, no hepatosplenomegaly Neurologic: Speech / Cognition: + expressive aphasia Results & Data Vital Signs (Past 12 Hours) Vital Signs Temp Pulse Pulse Resp BP Pulse Ox O2 Del Method 11/28/23 15:13 36.5 C 71 20 147/78 H 93 Nasal Cannula 11/28/23 14:26 88 11/28/23 11:07 36.6 C 89 19 120/73 92 Nasal Cannula 11/28/23 09:36 88 11/28/23 07:15 82 11/28/23 07:15 Nasal Cannula 11/28/23 07:12 37.0 C 79 19 159/86 H 91 Nasal Cannula O2 Flow Rate 11/28/23 15:13 3 11/28/23 14:26 11/28/23 11:07 3 11/28/23 09:36 11/28/23 07:15 11/28/23 07:15 4 11/28/23 07:12 3 Laboratory Results CBC 11/28/23 Range/Units 05:37 WBC 7.46 (4.8-10.8) K/ul RBC 3.64 L (4.20-5.40) M/uL Hgb 11.6 L (12.0-16.0) g/dl Hct 35.6 L (37.0-47.0) % Plt Count 173 (130-400) K/uL Comprehensive Metabolic Panel 11/28/23 Range/Units 05:37 Sodium 137 (136-145) mmol/L Potassium 4.1 (3.5-5.1) mmol/L Chloride 97 L (98-107) mmol/L Carbon Dioxide 33 H (21-32) mmol/L BUN 25 H (6-23) mg/dl Creatinine 1.12 (0.6-1.2) mg/dl Glucose 127 H (70-99(Fasting)) mg/dl Calcium 9.5 (8.6-10.3) mg/dl Intake and Output 11/28/23 11/28/23 11/28/23 06:59 14:59 22:59 Intake Total 100 / 750 480 / 480 Output Total 450 / 1750 350 / 350 Balance -350 / -1000 130 / 130 Intake: Oral 100 / 700 480 / 480 Output: Urine Amount (Catheter) 450 / 1750 350 / 350 Brownlee/Indwelling 450 / 1750 350 / 350 Other: Weight 112.2 kg Diagnostic Findings Telemetry reviewed: She had an episode of afib, controlled rates ranging 21:43 to 3:01 AM overnight. Currently back in NSR. No bradycardia. HRs currently in the 70's Medications Administered Current Inpatient Medications Acetaminophen (Acetaminophen 325 Mg Tab) 650 mg PO Q4H PRN PRN Reason: Pain or Fever Stop: 12/26/23 20:32 Last Admin: 11/27/23 20:53 Dose: 650 mg Albuterol (Albut/Ipratrop 3mg/0.5mg Neb 3 Ml Vial) 3 ml NEB Q6R PRN; Protocol PRN Reason: Shortness Of Breath Or Wheezing Stop: 12/26/23 20:32 Last Admin: 11/27/23 21:09 Dose: 3 ml Amitriptyline HCl (Amitriptyline Hcl 10 Mg Tab) 10 mg PO HS LIAM Stop: 12/26/23 20:59 Last Admin: 11/27/23 20:56 Dose: 10 mg Apixaban (Apixaban 5 Mg Tablet) 5 mg PO BID LIAM Stop: 12/26/23 20:59 Last Admin: 11/28/23 09:36 Dose: 5 mg Artificial Tears (Artificial Tears) 1 drops OP QID PRN; Protocol PRN Reason: Dryness Stop: 12/26/23 20:48 Aspirin (Aspirin 81 Mg Ectab) 81 mg PO DAILY LIAM Stop: 12/27/23 08:59 Last Admin: 11/28/23 09:36 Dose: 81 mg Atenolol (Atenolol 50 Mg Tablet) 50 mg PO DAILY LIAM Stop: 12/28/23 08:59 Last Admin: 11/28/23 09:35 Dose: 50 mg Atorvastatin Calcium (Atorvastatin 40 Mg Tab) 80 mg PO PM LIAM Stop: 12/26/23 20:59 Last Admin: 11/27/23 20:54 Dose: 80 mg Dextrose (Dextrose 50% 50 Ml Syringe) 25 - 50 ml IV UD PRN; Protocol PRN Reason: Hypoglycemia Protocol Stop: 12/26/23 20:32 Fexofenadine HCl (Fexofenadine Hcl 180 Mg Tab) 180 mg PO DAILY PRN PRN Reason: ALLERGIES Stop: 12/27/23 11:52 Glucagon (Glucagon For Inj 1 Mg Vial) 1 mg SQ UD PRN; Protocol PRN Reason: Hypoglycemia Protocol Stop: 12/26/23 20:32 Glucose (Glucose 40% Gel 15 Gm Tube) 15 - 30 gm PO UD PRN; Protocol PRN Reason: Hypoglycemia Protocol Stop: 12/26/23 20:32 Glucose (Glucose 10 Tab/Tube) 4 - 8 tab PO UD PRN; Protocol PRN Reason: Hypoglycemia Treatment Stop: 12/26/23 20:32 Ceftriaxone Sodium (Rocephin) 2,000 mg in 50 mls @ 100 mls/hr IV Q24H LIAM Stop: 12/02/23 15:59 Last Infusion: 11/27/23 15:46 Dose: Infused Insulin Aspart (Insulin Aspart Per Unit Charge) 0 units SC ACHS LIAM Stop: 12/26/23 20:59 Last Admin: 11/28/23 12:43 Dose: Not Given Lactobacillus Acidophilus (Advanced Probiotic 625 Mg Capsule) 1,250 mg PO DAILY LIAM Stop: 12/28/23 12:14 Last Admin: 11/28/23 13:03 Dose: 1,250 mg Miscellaneous (Carbohydrates For Hypoglycemia ) 15 - 30 gm PO UD PRN PRN Reason: Hypoglycemia Protocol Stop: 12/26/23 20:32 Ondansetron HCl (Ondansetron Inj 2 Mg/Ml 2 Ml Vial) 4 mg IV Q6H PRN PRN Reason: Nausea Stop: 12/26/23 20:32 Oxycodone HCl (Oxycodone Hcl Ir 5 Mg Tab (Immediate Release)) 5 mg PO Q6 PRN PRN Reason: Mod-Sev Pain (Scale 4-10) Stop: 12/12/23 12:12 Last Admin: 11/28/23 12:42 Dose: 5 mg Pantoprazole Sodium (Pantoprazole 40 Mg Tab) 40 mg PO BID [facility]; Protocol Stop: 12/26/23 20:59 Last Admin: 11/28/23 09:35 Dose: 40 mg Polyethylene Glycol (Polyethylene (Miralax) 17 Gm Pack) 17 gm PO DAILY PRN PRN Reason: Constipation Stop: 12/26/23 20:32 Pregabalin (Pregabalin 25 Mg Cap) 25 mg PO BID [facility] Stop: 12/26/23 20:59 Last Admin: 11/28/23 09:35 Dose: 25 mg Vitamin D (Cholecalciferol 25 Mcg (1000 Units) Tab) 25 mcg PO DAILY [facility] Stop: 12/27/23 08:59 Last Admin: 11/28/23 09:35 Dose: 25 mcg
--- NOTE | 2023-11-28 16:15 | Hospitalist Progress Note ---
Date of Service November 28, 2023 Assessment & Plan (1) Syncope and collapse: Plan: Patient is 73 year old female with PMH paroxysmal atrial fibrillation anticoagulated on Eliquis, chronic hypoxic respiratory failure on 2L oxygen, COPD, DM II, CVA, CAD, history ischemic cardiomyopathy with EF 55% on 2021 echo, HTN, dyslipidemia, carotid artery disease s/p bilateral CEA's with bilateral recurrence, PVD, subclavian stenosis, SMA stenosis, CKD III, and others listed below presented to ER with c/o recurrent syncope with syncope today resulting in left ankle injury Syncope Carotid artery disease S/P bilateral carotid endarterectomy --CT head:No acute infarct or intracranial hemorrhage. Old left MCA territory infarct. --Carotid Doppler:Highly limited exam. Severe bilateral atherosclerotic disease. There is an occluded vessel on the left which may represent the internal or external carotid artery. Antegrade flow of the vertebral arteries noted bilaterally. Antegrade flow is shown in the vertebral arteries. --ECHO: EF 55 to 60%. Trace mitral regurgitation. Normal inferior vena cava size and collapsibility with sniff indicates a normal right atrial pressure of 3 mmHg -- Orthostatics ordered --Concern for bradycardia arrhythmia Atenolol dose decreased to 50 mg daily Needs outpatient ZIO monitor May need to follow-up with vascular surgery as outpatient Appreciate cardiology input Needs follow-up with cardiology on discharge Abnormal urine analysis Possible UTI Patient admits to have dysuria Urine culture not contributory Empirically started on Rocephin Diarrhea Likely due to antibiotics Check stool for C. difficile Monitor volume status (2) Left ankle injury: Plan: Left Ankle Sprain Secondary to Trauma due to syncope --Left ankle x-ray: Soft tissue swelling without acute displaced fracture or dislocation. Ill-defined linear lucency of the distal fibula likely represents normal medullary markings. A subtle acute nondisplaced fracture could appear similarly. -- Continue cam boot Weightbearing as tolerated using walker/with cam boot in place Aristeo wrap as needed Appreciate orthopedics input Fall precautions PT OT eval requested (3) Acute on chronic respiratory failure with hypoxia and hypercapnia: Plan: COPD Chronic oxygen dependency --2L oxygen at baseline --BioFire negative No signs of COPD exacerbation currently Mild pulmonary edema Received a dose of Lasix Monitor volume status Continue nebs as needed (4) Peripheral vascular disease: Plan: PVD, carotid stenosis s/p bilateral CEA with recurrence, subclavian stenosis, SMA stenosis Continue aspirin, atorvastatin Previously followed with vascular surgery at [facility], Dr Sesay who recommended reserving surgical intervention for severe symptomatology or limb salvage. Will need further evaluation by vascular surgery as outpatient (5) Stroke: Plan: H/O CVA with residual dysarthria Continue aspirin, atorvastatin (6) Paroxysmal atrial fibrillation: Plan: Reported history PAF during hospitalization at [facility] Continue Eliquis, atenolol (7) CAD (coronary artery disease): Plan: Coronary artery disease H/o ischemic cardiomyopathy Updated echo as above Continue aspirin, atorvastatin, isosorbide Resume lisinopril as able (8) CKD (chronic kidney disease), stage III: Plan: Baseline 1.2 Monitor renal function Avoid nephrotoxic agents as able DM II HbA1c 6.7 Jardiance on hold Continue insulin while hospitalized Monitor BGs DVT Px Eliquis CODE STATUS Full Code Disposition PT OT prior to discharge Admission and Anticipated Discharge Date Admission Date: November 26, 2023 Subjective Patient is seen and examined at bedside Had 4 loose BMs today Patient ambulated better with boot today Ankle pain is controlled Denies any chest pain, dyspnea, nausea, vomiting, abdominal pain, dizziness No other complaints Review of Systems Review of Systems: All systems reviewed & are unremarkable except as noted in Subjective Physical Exam Physical Exam: Physical Exam: Vitals signs as noted above General Appearance:Morbidly Obese, no apparent distress Head: normocephalic, Atraumatic Eyes: normal inspection, EOMI Neck: supple, Trachea midline Respiratory/Chest: Decreased breath sounds, CTA, No accessory muscle use Cardiovascular: S1, S2, faint murmur Abdomen/GI:Soft, Non tender, Bowel sounds present Extremities/Musculoskeletal:normal inspection, no edema, Left Ankle tender Neurologic/Psych:AAOX3, + facial droop, chronic right-sided sensory deficit, otherwise grossly no focal neurological deficits, + chronic dysarthria Skin: normal color, warm Results & Data Results & Data Vital Signs (Past 12 Hours) Vital Signs Temp Pulse Pulse Resp BP Pulse Ox O2 Del Method 11/28/23 15:13 36.5 C 71 20 147/78 H 93 Nasal Cannula 11/28/23 14:26 88 11/28/23 11:07 36.6 C 89 19 120/73 92 Nasal Cannula 11/28/23 09:36 88 11/28/23 07:15 82 11/28/23 07:15 Nasal Cannula 11/28/23 07:12 37.0 C 79 19 159/86 H 91 Nasal Cannula O2 Flow Rate 11/28/23 15:13 3 11/28/23 14:26 11/28/23 11:07 3 11/28/23 09:36 11/28/23 07:15 11/28/23 07:15 4 11/28/23 07:12 3 Laboratory Results Short CBC 11/28/23 Range/Units 05:37 WBC 7.46 (4.8-10.8) K/ul Hgb 11.6 L (12.0-16.0) g/dl Hct 35.6 L (37.0-47.0) % Plt Count 173 (130-400) K/uL BMP 11/28/23 05:37 Sodium 137 Potassium 4.1 Chloride 97 L Carbon Dioxide 33 H BUN 25 H Creatinine 1.12 Glucose 127 H Calcium 9.5
[2023-11-28] MEDS: ISOSORBIDE MONO EXTENDED REL 30 MG TABCR PO SCH (17:42)
[2023-11-29 08:08] LABS: Creatinine Clr Calc Pharmacy 51.8 ml/min; Est GFR (African American) 53.7 ml/min; Est GFR (Non-African American) 46.3 ml/min; Potassium 4.1 mmol/L (3.5-5.1)
--- NOTE | 2023-11-29 13:53 | Hospitalist Progress Note ---
Date of Service November 29, 2023 Assessment & Plan (1) Syncope and collapse: Plan: Patient is 73 year old female with PMH paroxysmal atrial fibrillation anticoagulated on Eliquis, chronic hypoxic respiratory failure on 2L oxygen, COPD, DM II, CVA, CAD, history ischemic cardiomyopathy with EF 55% on 2021 echo, HTN, dyslipidemia, carotid artery disease s/p bilateral CEA's with bilateral recurrence, PVD, subclavian stenosis, SMA stenosis, CKD III, and others listed below presented to ER with c/o recurrent syncope with syncope today resulting in left ankle injury Syncope Carotid artery disease S/P bilateral carotid endarterectomy --CT head:No acute infarct or intracranial hemorrhage. Old left MCA territory infarct. --Carotid Doppler:Highly limited exam. Severe bilateral atherosclerotic disease. There is an occluded vessel on the left which may represent the internal or external carotid artery. Antegrade flow of the vertebral arteries noted bilaterally. Antegrade flow is shown in the vertebral arteries. --ECHO: EF 55 to 60%. Trace mitral regurgitation. Normal inferior vena cava size and collapsibility with sniff indicates a normal right atrial pressure of 3 mmHg -- Orthostatics ordered --Concern for bradycardia arrhythmia Atenolol dose decreased to 50 mg daily Needs outpatient ZIO monitor May need to follow-up with vascular surgery as outpatient Appreciate cardiology input Needs follow-up with cardiology on discharge Plan to discharge home today Abnormal urine analysis Possible UTI Patient admits to have dysuria Urine culture not contributory Empirically started on Rocephin Day #3 Diarrhea Likely due to antibiotics Check stool for C. difficile if diarrhea re-oocurs Monitor volume status Resolved (2) Left ankle injury: Plan: Left Ankle Sprain Secondary to Trauma due to syncope --Left ankle x-ray: Soft tissue swelling without acute displaced fracture or dislocation. Ill-defined linear lucency of the distal fibula likely represents normal medullary markings. A subtle acute nondisplaced fracture could appear similarly. -- Continue cam boot Weightbearing as tolerated using walker/with cam boot in place Aristeo wrap as needed Appreciate orthopedics input Fall precautions PT OT eval: Recommends to return home (3) Acute on chronic respiratory failure with hypoxia and hypercapnia: Plan: COPD Chronic oxygen dependency --2L oxygen at baseline --BioFire negative No signs of COPD exacerbation currently Mild pulmonary edema Received a dose of Lasix Monitor volume status Continue nebs as needed (4) Peripheral vascular disease: Plan: PVD, carotid stenosis s/p bilateral CEA with recurrence, subclavian stenosis, SMA stenosis Continue aspirin, atorvastatin Previously followed with vascular surgery at [facility], Dr Sesay who recommended reserving surgical intervention for severe symptomatology or limb salvage. Will need further evaluation by vascular surgery as outpatient (5) Stroke: Plan: H/O CVA with residual dysarthria Continue aspirin, atorvastatin (6) Paroxysmal atrial fibrillation: Plan: Reported history PAF during hospitalization at [facility] Continue Eliquis, atenolol (7) CAD (coronary artery disease): Plan: Coronary artery disease H/o ischemic cardiomyopathy Updated echo as above Continue aspirin, atorvastatin, isosorbide Resume lisinopril (8) CKD (chronic kidney disease), stage III: Plan: Baseline 1.2 Monitor renal function Avoid nephrotoxic agents as able DM II HbA1c 6.7 Jardiance on hold Continue insulin while hospitalized Monitor BGs DVT Px Eliquis CODE STATUS Full Code Disposition Home Admission and Anticipated Discharge Date Admission Date: November 26, 2023 Subjective Patient is seen and examined at bedside No diarrhea today Offers no new complaints today Ankle pain is controlled Was able to ambulate well with using the boot Denies any chest pain, dyspnea, nausea, vomiting, abdominal pain, dizziness Plan to discharge home today Review of Systems Review of Systems: All systems reviewed & are unremarkable except as noted in Subjective Physical Exam Physical Exam: Physical Exam: Vitals signs as noted above General Appearance:Morbidly Obese, no apparent distress Head: normocephalic, Atraumatic Eyes: normal inspection, EOMI Neck: supple, Trachea midline Respiratory/Chest: Decreased breath sounds, CTA, No accessory muscle use Cardiovascular: S1, S2, faint murmur Abdomen/GI:Soft, Non tender, Bowel sounds present Extremities/Musculoskeletal:normal inspection, no edema, Left Ankle tender Neurologic/Psych:AAOX3, + facial droop, chronic right-sided sensory deficit, otherwise grossly no focal neurological deficits, + chronic dysarthria Skin: normal color, warm Results & Data Results & Data Vital Signs (Past 12 Hours) Vital Signs Temp Pulse Resp BP Pulse Ox O2 Del Method O2 Flow Rate 11/29/23 10:37 36.7 C 77 19 146/80 H 95 Nasal Cannula 3 11/29/23 08:02 Nasal Cannula 3 11/29/23 07:08 36.7 C 65 20 138/68 94 Nasal Cannula 3 11/29/23 03:51 36.5 C 81 20 148/81 H 94 Nasal Cannula 3 Laboratory Results [facility] 11/29/23 07:17 Sodium 135 L Potassium 4.1 Chloride 97 L Carbon Dioxide 31 BUN 29 H Creatinine 1.16 Glucose 130 H Calcium 9.0
[2023-11-29] MEDS ORDERED: cefTRIAXone SODIUM 2,000 MG/50 ML BAG IV SCH (13:55)
--- NOTE | 2023-11-29 14:05 | Discharge Summary ---
Date of Service November 29, 2023 Admission HPI Per Admitting Provider Patient is 73 year old female with PMH paroxysmal atrial fibrillation anticoagulated on Eliquis, chronic hypoxic respiratory failure on 2L oxygen, COPD, DM II, CVA, CAD, history ischemic cardiomyopathy with EF 55% on 2021 echo, HTN, dyslipidemia, carotid artery disease s/p bilateral CEA's with bilateral recurrence, PVD, subclavian stenosis, SMA stenosis, CKD III, and others listed below presented to ER with c/o syncope. History obtained from patient, family and outpatient chart review. Reports since stroke has chronic aphasia and dysphagia. Reports chronic right sided paresthesias. Reports some chronic weakness but does not use assistive devices for ambulation. Patient states a couple of weeks ago got a hot feeling her her face and head and then woke up on the floor. Today was cooking at the stove and she said she had funny feeling and face felt hot and tried to hag on to the countertop and next thing she knew was on the floor. Family states she was passed out for a few seconds. Denies CP, SOB, dizziness prior to these episodes. Sleeps inclined at baseline and hasn't noticed more orthopnea. States past week feeling more wheezy but states "it doesn't feel like its in my chest". Denies increased cough. States has nebulizer but is out of medication. Since she has been having syncope she self increased her oxygen to 3L but hasn't noticed any difference. States when in bright light/sunlight has blurry vision. She notices this has been progressive. Has chronic loose stool. States eats regular diet but sometimes dose have choking since her stroke. Denies fever/chills, diaphoresis, N/V/D/C, OLIVER, dizziness, diplopia, vision loss, neck pain, CP, palpitations, sore throat, otalgia, rhinorrhea, abdominal pain, extremity edema, rashes, urinary symptoms. Outpatient chart reviewed 11/18/22 Carotid duplex Impression: Diffuse supra-aortic trunk disease as noted on prior imaging studies including a CTA from 05/05/2019. Right carotid artery duplex examination indicates evidence of 70-99% stenosis of the internal carotid artery. Degree of stenosis may be greater than reported due to heavily calcified plaque. Left carotid artery duplex examination indicates evidence of less than 50% stenosis of the internal carotid artery. Waveform of the internal carotid artery suggests proximal common carotid artery stenosis. Left external carotid artery is not identified. Retrograde flow noted in the left vertebral artery which may represent a proximal stenosis or occlusion. Possible greater than 70% stenosis of the right subclavian. 03/24/2022 Echo: EF: 55%, grade II diastolic dysfunction, moderate aortic valve sclerosis, moderate mitral annular calcification 11/18/22 vascular surgery note, Dr Sesay at [facility] which discusses reserving surgical intervention for carotid disease for symptomatology and PAD reserve intervention for limb salvage Admission Exam Per Admitting Provider GENERAL APPEARANCE: AxOx4, pleasant female HEENT: NC, AT. MMM. EOMI, clear conjunctiva, oropharynx clear. NECK: Supple without lymphadenopathy. No stiffness or restricted ROM. HEART: r bruit + slight VINCENZO. RRR LUNGS: CTAB, moving air well.scattered wheezing ABDOMEN: Soft, nontender, nondistended with good bowel sounds heard. BACK: No CVAT, no obvious deformity. EXTREMITIES: Without cyanosis, clubbing or edema. NEUROLOGICAL: Alert and oriented, moving all 4 extremities. notable dysphagia, chronic right sided sensory deficit on face with slight facial droop Skin: Warm and dry without any rash. Principal Diagnosis Syncope Carotid artery disease Left ankle sprain Suspected urinary tract infection Discharge Data Allergies Allergy/AdvReac Type Severity Reaction Status Date / Time bupropion Allergy Intermediate ZYBAN-HIVES Verified 11/26/23 17:45 niacin Allergy Intermediate BURNED Verified 11/26/23 17:45 THROAT amoxicillin Allergy Mild Rash Verified 11/26/23 17:45 prednisone AdvReac Intermediate ELEVATES Verified 11/26/23 17:45 BLOOD PRESSURE levofloxacin AdvReac Mild Weakness Verified 11/26/23 17:45 antihistamines Allergy BP goes up Uncoded 11/26/23 17:46 Consultations 11/26/23 16:57 ED Decision to Admit Stat 11/26/23 20:33 Consult Cardiology Routine Consult Orthopedic Surgery Routine Procedures Performed Laboratory Results WBC 7.46 K/ul (4.8-10.8) 11/28/23 05:37 RBC 3.64 M/uL (4.20-5.40) L 11/28/23 05:37 Hgb 11.6 g/dl (12.0-16.0) L 11/28/23 05:37 Hct 35.6 % (37.0-47.0) L 11/28/23 05:37 MCV 97.8 fL (80.0-100.0) 11/28/23 05:37 MCH 31.9 pg (25.0-34.0) 11/28/23 05:37 MCHC 32.6 g/dL (32.0-36.0) 11/28/23 05:37 RDW Std Deviation 51.2 fL (36.4-46.3) H 11/28/23 05:37 RDW Coeff of Shonda 14.1 % (11.5-14.5) 11/28/23 05:37 Plt Count 173 K/uL (130-400) 11/28/23 05:37 MPV 10.0 fL (9.4-12.4) 11/28/23 05:37 Immature Gran % (Auto) 0.6 % 11/26/23 13:35 Neut % (Auto) 73.7 % 11/26/23 13:35 Lymph % (Auto) 15.0 % 11/26/23 13:35 Haakon % (Auto) 8.8 % 11/26/23 13:35 Eos % (Auto) 1.5 % 11/26/23 13:35 Baso % (Auto) 0.4 % 11/26/23 13:35 Neut # (Auto) 6.31 K/uL (1.40-6.50) 11/26/23 13:35 Lymph # (Auto) 1.28 K/uL (1.20-3.40) 11/26/23 13:35 Haakon # (Auto) 0.75 K/uL (0.11-0.59) H 11/26/23 13:35 Eos # (Auto) 0.13 K/uL (0.00-0.50) 11/26/23 13:35 Baso # (Auto) 0.03 K/uL (0.00-0.20) 11/26/23 13:35 Immature Gran # (Auto) 0.05 K/uL (0.01-0.20) 11/26/23 13:35 VBG pH 7.36 (7.36-7.41) 11/28/23 05:37 VBG pCO2 61 mmHg (38-50) H 11/28/23 05:37 VBG pO2 46 mmHg 11/28/23 05:37 VBG HCO3 35 mmol/L 11/28/23 05:37 VBG O2 Saturation 79.8 % 11/28/23 05:37 VBG Base Excess 7.0 mEq/L 11/28/23 05:37 Sodium 135 mmol/L (136-145) L 11/29/23 07:17 Potassium 4.1 mmol/L (3.5-5.1) 11/29/23 07:17 Chloride 97 mmol/L (98-107) L 11/29/23 07:17 Carbon Dioxide 31 mmol/L (21-32) 11/29/23 07:17 Anion Gap 7 (3-11) 11/29/23 07:17 BUN 29 mg/dl (6-23) H 11/29/23 07:17 Creatinine 1.16 mg/dl (0.6-1.2) 11/29/23 07:17 Est Cr Clr Drug Dosing 51.8 ml/min 11/29/23 07:17 Est GFR ( Amer) 53.7 ml/min 11/29/23 07:17 Est GFR (Non-Af Amer) 46.3 ml/min 11/29/23 07:17 BUN/Creatinine Ratio 25.0 (10-20) H 11/29/23 07:17 Glucose 130 mg/dl (70-99(Fasting)) H 11/29/23 07:17 POC Glucose 161 mg/dl (70-99) H 11/29/23 11:35 Estimat Average Glucose 146 mg/dl 11/28/23 05:37 Hemoglobin A1c 6.7 % (4.5-5.6) H 11/28/23 05:37 Calcium 9.0 mg/dl (8.6-10.3) 11/29/23 07:17 Magnesium 1.9 mg/dl (1.7-2.4) 11/28/23 05:37 Total Bilirubin 0.5 mg/dl (0.2-1.0) 11/26/23 13:35 AST 18 U/L (13-39) 11/26/23 13:35 ALT 15 U/L (7-52) 11/26/23 13:35 Alkaline Phosphatase 69 U/L (34-104) 11/26/23 13:35 Troponin I High Sens 13.3 pg/ml (0-14) 11/26/23 13:35 Total Protein 6.9 gm/dl (6.0-8.3) 11/26/23 13:35 Albumin 4.2 gm/dl (3.4-5.0) 11/26/23 13:35 Globulin 2.7 gm/dl (2.5-4.0) 11/26/23 13:35 Albumin/Globulin Ratio 1.6 (0.9-2) 11/26/23 13:35 TSH 1.914 uIu/ml (0.300-4.500) 11/26/23 13:35 Urine Color Yellow 11/26/23 15:57 Urine Appearance Clear (Clear) 11/26/23 15:57 Urine pH 6.0 (4.5-7.5) 11/26/23 15:57 Ur Specific [place] 1.013 (1.000-1.030) 11/26/23 15:57 Urine Protein 1+ (Negative) H 11/26/23 15:57 Urine Glucose (UA) 2+ (Negative) H 11/26/23 15:57 Urine Ketones Negative (Negative) 11/26/23 15:57 Urine Blood Negative (Negative) 11/26/23 15:57 Urine Nitrite Negative (Negative) 11/26/23 15:57 Urine Bilirubin Negative (Negative) 11/26/23 15:57 Urine Urobilinogen Negative (Negative) 11/26/23 15:57 Ur Leukocyte Esterase Negative (Negative) 11/26/23 15:57 Urine WBC (Auto) 0-5 /hpf (0-5) 11/26/23 15:57 Urine RBC (Auto) 0-2 /hpf (0-2) 11/26/23 15:57 U Hyaline Cast (Auto) 0-2 /lpf (0-2) 11/26/23 15:57 U Epithel Cells (Auto) 3-5 /hpf (0-2) H 11/26/23 15:57 Urine Bacteria (Auto) 1+ (None Seen) H 11/26/23 15:57 Adenovirus (PCR) Not Detected (NotDetected) 11/26/23 13:35 B. pertussis DNA (PCR) Not Detected (NotDetected) 11/26/23 13:35 B.parapertussis DNA PCR Not Detected (NotDetected) 11/26/23 13:35 C. pneumoniae DNA (PCR) Not Detected (NotDetected) 11/26/23 13:35 Coronavirus OC43 (PCR) Not Detected (NotDetected) 11/26/23 13:35 Coronavirus HKU1 (PCR) Not Detected (NotDetected) 11/26/23 13:35 Coronavirus 229E (PCR) Not Detected (NotDetected) 11/26/23 13:35 SARS-CoV-2 (PCR) Not Detected (NotDetected) 11/26/23 13:35 Coronavirus NL63 (PCR) Not Detected (NotDetected) 11/26/23 13:35 Human Metapneumovir PCR Not Detected (NotDetected) 11/26/23 13:35 Influenza Type A (PCR) Not Detected (NotDetected) 11/26/23 13:35 Influenza Type B (PCR) Not Detected (NotDetected) 11/26/23 13:35 M. pneumoniae (PCR) Not Detected (NotDetected) 11/26/23 13:35 Parainfluenza 1 (PCR) Not Detected (NotDetected) 11/26/23 13:35 Parainfluenza 2 (PCR) Not Detected (NotDetected) 11/26/23 13:35 Parainfluenza 3 (PCR) Not Detected (NotDetected) 11/26/23 13:35 Parainfluenza 4 (PCR) Not Detected (NotDetected) 11/26/23 13:35 RSV (PCR) Not Detected (NotDetected) 11/26/23 13:35 Entero/Rhino (PCR) Not Detected (NotDetected) 11/26/23 13:35 Impressions Ankle X-Ray 11/26/23 13:38 XR ankle LT min 3V routine HISTORY: 73 years-old Female pain acute left ankle pain COMPARISON: None TECHNIQUE: 3 views of left ankle FINDINGS: Arterial calcifications. Circumferential soft tissue swelling. Benign-appearing ill-defined area of sclerosis involves the distal tibial diaphysis. Subcentimeter corticated ossification adjacent to the medial malleolus is likely chronic. Well-defined linear longitudinal lucency of the distal fibula. No acute fracture, dislocation or osteochondral defect. IMPRESSION: 1. Soft tissue swelling without acute displaced fracture or dislocation. 2. Ill-defined linear lucency of the distal fibula likely represents normal medullary markings. A subtle acute nondisplaced fracture could appear similarly. ACT 112: Negative or not required by law. The above report was generated using voice recognition software. It may contain grammatical, syntax or spelling errors. Electronically signed by: Magan Coleman M.D. 11/26/2023 3:[address] 11/26/23 14:[address] DOSE: 953.61 mGy.cm HISTORY: fall, syncope TECHNIQUE: Multiaxial CT images of the head were performed without the use of intravenous contrast. Automated exposure control was utilized for this study. A dose lowering technique was utilized adhering to the principles of ALARA. Comparison: None. Findings: The paranasal sinuses and mastoid air cells are clear. The calvarium and skull base are intact. There is no mass, hematoma, midline shift, acute infarct. White matter hypodensity is nonspecific but suggestive of microvascular ischemic change. The ventricles and sulci demonstrate mild age-related involutional changes. Focal area of encephalomalacia within the left posterior frontal lobe consistent with an old MCA territory infarct. Impression: 1. No acute infarct or intracranial hemorrhage. 2. Old left MCA territory infarct. ACT 112: Negative or not required by law. Electronically signed by: Jose Resendiz M.D. 11/26/2023 3:43 PM Carotid Doppler Study 11/26/23 17:29 ULTRASOUND OF THE CAROTID ARTERIES CLINICAL HISTORY: syncope TECHNIQUE: Real-time, grayscale, and color Doppler sonography of the bilateral carotid arteries is performed. Images are reviewed in the transverse and longitudinal planes. COMPARISON: Comparison is made to prior carotid ultrasound 07/20/2013 FINDINGS: Exam is limited by patient motion. The carotid arteries are patent bilaterally and demonstrate antegrade flow. There is severe atherosclerotic plaque on the right and severe atherosclerotic plaque on the left. Normal doppler arterial waveforms are seen throughout. Velocity measurements are listed below. Common carotid peak systolic velocity (cm/sec): RIGHT: 72 LEFT: 94 ICA peak systolic velocity (cm/sec): RIGHT: 72 LEFT: Not measured ICA/CC peak systolic ratio: RIGHT: 1.0 LEFT: Not measured Antegrade flow was shown in the vertebral arteries. The external carotid arteries are patent. IMPRESSION: 1. Highly limited exam. Severe bilateral atherosclerotic disease. There is an occluded vessel on the left which may represent the internal or external cerebral artery. Antegrade flow of the vertebral arteries noted bilaterally. 2. Antegrade flow is shown in the vertebral arteries. Society of Radiologists in Ultrasound consensus guidelines: Normal: ICA PSV is <125 cm/sec and no plaque or intimal thickening is visible sonographically additional criteria include ICA/CCA PSV ratio <2.0 and ICA EDV <40 cm/sec <50% ICA stenosis: ICA PSV is <125 cm/sec and plaque or intimal thickening is visible sonographically additional criteria include ICA/CCA PSV ratio <2.0 and ICA EDV <40 cm/sec 50-69% ICA stenosis: ICA PSV is 125-230 cm/sec and plaque is visible sonographically additional criteria include ICA/CCA PSV ratio of 2.0-4.0 and ICA EDV of 40-100 cm/sec ?70% ICA stenosis but less than near occlusion: ICA PSV is >230 cm/sec and visible plaque and luminal narrowing are seen at sanchez-scale and color Doppler ultrasound (the higher the Doppler parameters lie above the threshold of 230 cm/sec, the greater the likelihood of severe disease) additional criteria include ICA/CCA PSV ratio >4 and ICA EDV >100 cm/sec ACT 112: Negative or not required by law. Electronically signed by: Karl Crouch M.D. 11/26/2023 7:25 PM Chest X-Ray 11/26/23 21:59 XR chest 1V portable HISTORY: 73 years-old Female sob acute shortness of breath COMPARISON: 11/26/2023 TECHNIQUE: AP view the chest FINDINGS: Cardiac silhouette is enlarged. Pulmonary vascular congestion with interstitial coarsening. Patchy bibasilar and midlung predominant alveolar opacities, right greater than left. Small pleural effusions. Bones appear intact. IMPRESSION: 1. Cardiomegaly with interstitial pulmonary edema. 2. Interval development of mid to lower lung zone predominate right greater than left patchy airspace opacities which may represent alveolar pulmonary edema versus pneumonia. ACT 112: Negative or not required by law. The above report was generated using voice recognition software. It may contain grammatical, syntax or spelling errors. Electronically signed by: Magan Coleman M.D. 11/27/2023 7:55 AM Ordered Studies 11/26/23 14:42 CT head/brain wo con Stat 11/26/23 17:29 Carotid duplex [US carotid doppler BI] Routine Hospital Course (1) Syncope and collapse: Patient is 73 year old female with PMH paroxysmal atrial fibrillation anticoagulated on Eliquis, chronic hypoxic respiratory failure on 2L oxygen, COPD, DM II, CVA, CAD, history ischemic cardiomyopathy with EF 55% on 2021 echo, HTN, dyslipidemia, carotid artery disease s/p bilateral CEA's with bilateral recurrence, PVD, subclavian stenosis, SMA stenosis, CKD III, and others listed below presented to ER with c/o recurrent syncope with syncope today resulting in left ankle injury Syncope Carotid artery disease S/P bilateral carotid endarterectomy --CT head:No acute infarct or intracranial hemorrhage. Old left MCA territory infarct. --Carotid Doppler:Highly limited exam. Severe bilateral atherosclerotic disease. There is an occluded vessel on the left which may represent the internal or external carotid artery. Antegrade flow of the vertebral arteries noted bilaterally. Antegrade flow is shown in the vertebral arteries. --ECHO: EF 55 to 60%. Trace mitral regurgitation. Normal inferior vena cava size and collapsibility with sniff indicates a normal right atrial pressure of 3 mmHg -- Orthostatics ordered --Concern for bradycardia arrhythmia Atenolol dose decreased to 50 mg daily Needs outpatient ZIO monitor May need to follow-up with vascular surgery as outpatient Appreciate cardiology input Needs follow-up with cardiology on discharge Plan to discharge home today Abnormal urine analysis Possible UTI Patient admits to have dysuria Urine culture not contributory Empirically started on Rocephin Day #3 Diarrhea Likely due to antibiotics Check stool for C. difficile if diarrhea re-oocurs Monitor volume status Resolved (2) Left ankle injury: Left Ankle Sprain Secondary to Trauma due to syncope --Left ankle x-ray: Soft tissue swelling without acute displaced fracture or dislocation. Ill-defined linear lucency of the distal fibula likely represents normal medullary markings. A subtle acute nondisplaced fracture could appear similarly. -- Continue cam boot Weightbearing as tolerated using walker/with cam boot in place Aristeo wrap as needed Appreciate orthopedics input Fall precautions PT OT eval: Recommends to return home (3) Acute on chronic respiratory failure with hypoxia and hypercapnia: COPD Chronic oxygen dependency --2L oxygen at baseline --BioFire negative No signs of COPD exacerbation currently Mild pulmonary edema Received a dose of Lasix Monitor volume status Continue nebs as needed (4) Peripheral vascular disease: PVD, carotid stenosis s/p bilateral CEA with recurrence, subclavian stenosis, SMA stenosis Continue aspirin, atorvastatin Previously followed with vascular surgery at [facility], Dr Sesay who recommended reserving surgical intervention for severe symptomatology or limb salvage. Will need further evaluation by vascular surgery as outpatient (5) Stroke: H/O CVA with residual dysarthria Continue aspirin, atorvastatin (6) Paroxysmal atrial fibrillation: Reported history PAF during hospitalization at [facility] [place] Continue Eliquis, atenolol (7) CAD (coronary artery disease): Coronary artery disease H/o ischemic cardiomyopathy Updated echo as above Continue aspirin, atorvastatin, isosorbide Resume lisinopril (8) CKD (chronic kidney disease), stage III: Baseline 1.2 Monitor renal function Avoid nephrotoxic agents as able DM II HbA1c 6.7 Jardiance on hold Continue insulin while hospitalized Monitor BGs DVT Px Eliquis CODE STATUS Full Code Disposition Home Total Time Total Time Spent Total Time Spent (In Minutes): 58 minutes Discharge Plan Discharge Items Patient Disposition: Home - Self-Care Reason For Visit: RESP FAILURE Discharge Diagnosis: Syncope Carotid artery disease Left ankle sprain Suspected urinary tract infection Activity: Per Instructions section Exercise/Sports: Gradually increase as tolerated Weightbearing: Left weightbearing Weightbearing Comment: with boot in place/walker or crutches Non-emergency contact: Primary Care Provider, Surgeon and Block Tester Call non-emergency contact if: you have any medication questions, your symptoms worsen, your pain is concerning for you and you have a fever Follow-up/Referrals: Tho Cline MD [Physician] - 12/15/23 2:30 pm Daysi Pham MD [Primary Care Provider] - Diet: Carb Consistent or DM2 and Heart Healthy Addtl Attending Provider Instructions: Follow-up with your primary care physician Dr. Pham on 12/06/2023 at 5:40 PM as scheduled Follow-up with your orthopedic surgeon Dr. Cline as scheduled Follow-up with your electric power line repairer Dr. Dumont for outpatient ZIO monitor as advised Consider following with your vascular surgeon as recommended for further evaluation of carotid artery disease as advised Seek immediate medical attention if your symptoms reoccur or worsen Please take all medications as instructed on discharge list below. Please call if you have any questions or problems. You can reach a [facility] hospitalist on duty at [facility] 24 hours a day by calling [employer] Provider Instructions: Orthopedic Instructions: - Weight-bear as tolerated on her left lower extremity with the assistance of a boot and walker or crutches as needed. - May remove boot when in bed and at rest. - Wear boot when out of bed with walking. - May remove boot to bathe or shower. - Use an Aristeo bandage on your left lower extremity for compression. May do range of motion activities of the left ankle and toes as tolerated. - Ice and elevate as needed for swelling. - Keep pressure off of your heel. - Follow-up with Dr. Cline as scheduled. Call [phone] with any increased problems such as pain or swelling. He is call to confirm or reschedule appointment as needed. Pending Studies at Discharge: No Stand-Alone Forms: My [facility], Smoking Cessation Medications and DC Order Prescriptions: New oxycodone 5 mg Tablet 5 mg PO Q8H PRN (Reason: pain) Qty: 10 0RF Advanced Probiotic 625 mg (10 billion cell) Capsule 1 cap PO DAILY Qty: 7 0RF Continued atorvastatin 80 mg tablet 80 mg PO PM esomeprazole magnesium 40 mg capsule,delayed release(DR/EC) 40 mg PO BID Rx Instructions: Take before am & pm meals lisinopril 5 mg tablet 5 mg PO DAILY Eliquis 5 mg tablet 5 mg PO BID Jardiance 10 mg tablet 10 mg PO DAILY Systane Preservative Free 1 drp OPB DIRECTED fexofenadine [Khloe] 180 mg Tablet 180 mg PO DAILY PRN (Reason: ALLERGIES) cyclosporine [Restasis] 0.05 % Dropperette 1 - 2 drp OPHTHALMIC (EYE) QID PRN (Reason: Dry Eyes) Combivent Respimat 20-100 mcg/actuation Mist 1 puff INHALATION QID PRN (Reason: Shortness Of Breath Or Wheezing) multivitamin Tablet 1 tab PO DAILY aspirin [Aspir-Low] 81 mg Tablet,Delayed Release (Dr/Ec) 81 mg PO DAILY nitroglycerin [Nitrostat] 0.4 mg Tablet, Sublingual 0.4 mg sublingual DIRECTED PRN (Reason: Chest Pain) vitamin B complex Tablet 1 tab PO DAILY coenzyme Q10 [CoQ-10] 100 mg Capsule 100 mg PO DAILY cholecalciferol (vitamin D3) [Vitamin D3] 25 mcg (1,000 unit) Tablet 25 mcg PO DAILY pomegranate fruit extract 250 mg Capsule 0 mg PO DAILY isosorbide mononitrate 30 mg tablet extended release 24 hr 30 mg PO QAM amitriptyline 10 mg tablet 10 mg PO HS ipratropium bromide 21 mcg (0.03 %) spray,non-aerosol 2 spray INTRANASAL QID PRN (Reason: Nasal Congestion) pregabalin 25 mg capsule 25 mg PO BID Changed atenolol 50 mg tablet 50 mg PO DAILY Qty: 0 0RF Discharge Orders: Discharge Order (Routine); Ordered 11/29/23 Ordered By: Tre Bains/Other Patient Handouts: Diabetes: Meal Planning, Type 2 Diabetes Admission Data Admit Date/Time: 11/26/23 17:29 Attending Provider: Tre Frank Admit Provider: Mary Jane Montenegro Primary Care Provider: Daysi Pham Other Providers: Mary Jane Montenegro; Ann Dumont; Tho Cline
== END 2023-11-29 16:52 | disposition home or self-care (01) | DRG 67 ==
LOC: ED 13:04 → EDINP 17:29 → SUATTDRO 17:29 → EDINP 20:33 → 4W 11-27 00:29

== ENCOUNTER 2024-02-01 18:37 | Inpatient (IN) ==
[2024-02-01 19:07] LABS: Basophils # (auto) 0.03 K/uL (0.00-0.20); Basophils % (auto) 0.3 %; Eosinophils # (auto) 0.16 K/uL (0.00-0.50); Eosinophils % (auto) 1.8 %; Hematocrit (blood only) 35.3 % (37.0-47.0); Hemoglobin 11.2 g/dl (12.0-16.0); Immature Granulocytes # (auto) 0.05 K/uL (0.01-0.20); Immature Granulocytes % (auto) 0.6 %; Lymphocytes # (auto) 1.97 K/uL (1.20-3.40); Lymphocytes % (auto) 22.6 %; Mean Corpuscular Hemoglobin 31.1 pg (25.0-34.0); Mean Corpuscular Hgb Conc 31.7 g/dL (32.0-36.0); Mean Corpuscular Volume 98.1 fL (80.0-100.0); Monocytes % (auto) 9.2 %; Neutrophils # (auto) 5.69 K/uL (1.40-6.50); Neutrophils % (auto) 65.5 %; Nucleated RBC # (auto) 0.03 K/uL (0.00-0.12); Nucleated RBC % (auto) 0.3 %; Platelet Count 213 K/uL (130-400); RDW Coefficient of Variation 15.1 % (11.5-14.5); RDW Standard Deviation 53.8 fL (36.4-46.3)
[2024-02-01 19:23] LABS: Alanine Aminotransferase 14 U/L (7-52); Albumin Globulin Ratio 1.5 (0.9-2); Alkaline Phosphatase 83 U/L (34-104); Anion Gap 5 (3-11); Aspartate Aminotransferase 22 U/L (13-39); BUN Creatinine Ratio 19.2 (10-20); Bilirubin,Total 0.6 mg/dl (0.2-1.0); Blood Urea Nitrogen 20 mg/dl (6-23); Calcium 9.5 mg/dl (8.6-10.3); Carbon Dioxide 35 mmol/L (21-32); Chloride 99 mmol/L (98-107); Est GFR (African American) 61.3 ml/min; Est GFR (Non-African American) 52.9 ml/min; Globulin 2.7 gm/dl (2.5-4.0); Glucose 113 mg/dl (70-99(Fasting)); Magnesium 1.8 mg/dl (1.7-2.4); Potassium 4.2 mmol/L (3.5-5.1); Sodium 139 mmol/L (136-145); Total Protein 6.7 gm/dl (6.0-8.3)
[2024-02-01 19:29] LABS: Troponin I High Sensitivity 34.3 pg/ml (0-14)
--- NOTE | 2024-02-01 19:30 | Emergency Department Note ---
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 I did obtain her interpretation and she had a 5.2-second pause as well as others. She had ventricular tachycardia for 13 seconds. Patient also had multiple episodes of paroxysmal A-fib. Her cardiology team directed her to the ER and felt that she would require evaluation for pacemaker. Blood work was obtained. ECG here shows normal sinus rhythm at 79 bpm. RSR prime pattern. Patient has an unremarkable CBC fix for mild anemia. Troponin is minimally elevated. LFTs unremarkable. Lyme testing is negative. [facility] Patient was evaluated in the ER for further management. I refer you to the EMR for further details. Care/management discussed with: real estate office manager Level of care consideration(s): After review of the information above and other included data, I feel the patient requires escalation of care admission. Triage Nursing notes: reviewed and agree them. Vital Signs: reviewed and remarkable for borderline O2 saturations. Patient states she typically runs in the high 80s around 90. Additional History obtained from: Patient's . He notes history of stroke. Chronic Medical/Social Conditions affecting care: Diabetes Prior/ Outside/ External records reviewed: none Differential Diagnosis: Premature contractions, electrolyte abnormality, cardiac dysrhythmia, thyroid dysfunction, pulmonary embolism, infection, gastrointestinal, as well as other pathologies. Diagnostics, independently interpreted by me: ECG: Twelve-lead ECG reveals normal sinus rhythm at 79 beats per minute. No evidence of pericarditis, ischemia, ectopy, or dysrhythmia. Cardiac Monitoring: Cardiac monitoring ordered by me: The patient was placed on continuous cardiac monitoring and observed. It revealed a normal sinus rhythm at 70 beats per minute without ectopy or evidence of dysrhythmia. Medical decision rules: none Imaging studies: Chest x-ray. Findings: A chest x-ray was performed and revealed no pneumothorax, effusion, infiltrate, pulmonary edema, free air under the diaphragm, or wide mediastinum. Impression: No acute disease. HPI: 73 year old Female arrives for evaluation of abnormal outpatient monitor. Patient had a ZIO monitor done and was notified by cardiology that she had multiple rhythm abnormalities and was directed to the ER for possible pacemaker placement. Currently the patient states she feels well. She did have some palpitations at times. Her ZIO monitor revealed the presence of 1 episode of V. tach, paroxysmal A-fib, and several pauses up to 5.2 seconds. Patient denies any recent illness. She chronically wears O2 and states her O2 saturations typically run from 88 to 90%. Patient does have a history of stroke. This did affect her speech but that is chronic without new changes. Pt denies LOC, headache, fevers, chills, diaphoresis, visual changes, neck pain, chest pain, breathing difficulties, nausea, vomiting, abdominal pain, back pain, melena, hematochezia, urinary symptoms, numbness, new weakness, lymphadenopathy, rash, or other complaints.. PAST MEDICAL HISTORY: See Below, CVA PAST SURGICAL HISTORY: See Below, SOCIAL HISTORY: See Below, . 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 HOME MEDICATIONS: See Below ALLERGIES: See Below VITALS: See Below PHYSICAL EXAMINATION: GENERAL: Awake, alert, [id number], in no distress HENT: Normocephalic, atraumatic. Oropharynx unremarkable. EYES: Normal conjunctiva. Sclera non-icteric. NECK: Inspection normal. Non-tender. Supple. No nuchal rigidity. FROM. No masses. RESPIRATORY: Clear to auscultation. No wheezes. No rales. Normal respiratory effort. CARDIAC: Normal rate. Normal rhythm. No murmurs. No rubs. Extremities warm and well perfused. Pulses equal. No JVD. GI: Soft, non-distended. No tenderness to palpation. No rebound or guarding. No masses. RECTAL: Deferred. MUSCULOSKELETAL: Atraumatic. Chest examination reveals no tenderness. The back is symmetrical on inspection without obvious abnormality. There is no CVA tenderness to palpation. No joint edema. LOWER EXTREMITIES: Calves are equal size bilaterally and non-tender. Trace edema. No discoloration. NEURO: Normal sensorium. No sensory or motor deficits noted. Speech somewhat slurred but patient states is baseline for her due to old stroke. SKIN: No rash or jaundice noted. PROCEDURES: none CRITICAL CARE: none OBSERVATION NOTE: none Past Med/Surg History Problem List (Updated 10/01/24 @ 19:30 by Kenrick Villarreal MD) Sinus pause (Acute) Ventricular tachycardia (Acute) Paroxysmal A-fib (Acute) Cardiac dysrhythmia (Acute) CKD (chronic kidney disease), stage III CAD (coronary artery disease) Paroxysmal atrial fibrillation Left ankle injury Acute on chronic respiratory failure with hypoxia and hypercapnia Acute and chronic respiratory failure with hypercapnia (Acute) Syncope and collapse (Acute) Left ankle sprain (Acute) Encounter for pre-operative examination Carotid endarterectomy (Chronic 09/16/12) Medical History (Updated 02/01/24 @ 19:30 by Kenrick Villarreal MD) Diabetes mellitus, type 2 Peripheral vascular disease Osteoarthritis Irritable bowel syndrome Diverticulitis GERD (gastroesophageal reflux disease) Peripheral neuropathy BLE Stroke LUNAR STROKE 1994 Atrial fibrillation PAST HX/NO PROBLEMS Hypertension Hyperlipidemia On home oxygen therapy 2L NC HS ONLY Chronic obstructive pulmonary disease Surgical History History of bilateral tubal ligation History of colonoscopy History of cholecystectomy History of tooth extraction History of tonsillectomy History of adenoidectomy History of carotid endarterectomy LEFT/RT History of cardiac cath 2003/NO STENTS Family History Family/Other Family history of diabetes mellitus Brother Family history of esophageal cancer Social History Smoking Status: Former smoker Tobacco Type: Cigarettes Cigarettes Per Day: 1 pack; Second Hand Exposure: No; Do You Dip or Chew Tobacco: No; Tobacco Cessation Education Requested by Patient: No Hx Alcohol Use: No Hx Substance Use: No Preferred Language: Tajik Communication Ability: Impaired Communication Ability Comment: Hx stroke- slurred speech Bulk Plant Supervisor Required: No Beliefs That Will Affect Care: None Current Living Situation: Alone Other Information That Helps Us Care for You: No Feels Safe at Home: Yes Safety Concerns: Feels Safe At This Time Assistive Devices: None Allergies Allergies Allergy/AdvReac Type Severity Reaction Status Date / Time bupropion Allergy Intermediate ZYBAN-HIVES Verified 02/01/24 20:28 niacin Allergy Intermediate BURNED Verified 10/01/24 20:28 THROAT amoxicillin Allergy Mild Rash Verified 02/01/24 20:28 prednisone AdvReac Intermediate ELEVATES Verified 02/01/24 20:28 BLOOD PRESSURE levofloxacin AdvReac Mild Weakness Verified 02/01/24 20:28 Antihistamines - Alkylamine AdvReac BP goes up Verified 02/01/24 21:16 Antihistamines - Ethanolamine AdvReac BP goes up Verified 02/01/24 21:16 Antihistamines - AdvReac BP goes up Verified 02/01/24 21:16 Ethylenediamine Antihistamines - Piperazine AdvReac BP goes up Verified 02/01/24 21:16 Antihistamines - Piperidine AdvReac BP goes up Verified 02/01/24 21:16 Home Meds Home Medications Medication Instructions Recorded Confirmed apixaban 5 mg tablet (Eliquis) 5 mg PO BID 01/31/22 02/01/24 aspirin 81 mg tablet,delayed 81 mg PO DAILY 01/31/22 02/01/24 release atorvastatin 80 mg tablet 80 mg PO PM 01/31/22 02/01/24 cholecalciferol (vitamin D3) 25 25 mcg PO DAILY 01/31/22 02/01/24 mcg (1,000 unit) tablet (Vitamin D3) coenzyme Q10 100 mg capsule 100 mg PO DAILY 01/31/22 02/01/24 (CoQ-10) cyclosporine 0.05 % eye drops in a 1 - 2 drp ophthalmic (eye) QID PRN 01/31/22 02/01/24 dropperette (Restasis) Dry Eyes empagliflozin 10 mg tablet 10 mg PO DAILY 01/31/22 02/01/24 (Jardiance) esomeprazole magnesium 40 mg 40 mg PO BID 01/31/22 02/01/24 capsule,delayed release fexofenadine 180 mg tablet 180 mg PO DAILY PRN ALLERGIES 01/31/22 02/01/24 ipratropium 20 mcg-albuterol 100 1 puff inhalation QID PRN 01/31/22 02/01/24 mcg/actuation mist for inhalation Shortness Of Breath Or Wheezing (Combivent Respimat) lisinopril 5 mg tablet 0 mg PO DAILY 01/31/22 02/01/24 multivitamin 1 tab PO DAILY 01/31/22 02/01/24 nitroglycerin 0.4 mg sublingual 0.4 mg sublingual DIRECTED PRN 01/31/22 02/01/24 tablet (Nitrostat) Chest Pain peg 400-propylene glycol (PF) 0.4 1 drp OPB DIRECTED ##0 01/31/22 02/01/24 %-0.3 % eye drops in a dropperette (Systane (PF)) pomegranate fruit extract 250 mg 0 mg PO DAILY 01/31/22 02/01/24 capsule vitamin B complex 1 tab PO DAILY 01/31/22 11/26/23 amitriptyline 10 mg tablet 10 mg PO HS 11/26/23 02/01/24 ipratropium bromide 21 mcg (0.03 2 spray intranasal QID PRN Nasal 11/26/23 02/01/24 %) nasal spray Congestion isosorbide mononitrate 30 mg 30 mg PO QAM 11/26/23 02/01/24 tablet,extended release 24 hr pregabalin 25 mg capsule 25 mg PO BID 11/26/23 02/01/24 Previous Rx's Medication Instructions Recorded atenolol 50 mg tablet 50 mg PO DAILY #0 tabs 11/29/23 Results & Data (ED) Vital Signs Vital Signs - 24 hr 02/01/24 18:39 02/01/24 18:58 02/01/24 19:11 Temperature 36.2 C L Temperature Source Temporal Artery Scan Pulse Rate 73 82 Pulse Rate [Right Finger] Pulse Rhythm Regular Pulse Strength Normal Respiratory Rate 20 Respiratory Effort / Characteristics Non-Labored Spontaneous Respiratory Depth Normal Respiratory Pattern Regular Blood Pressure 185/85 H Blood Pressure [Left Radial Artery] Blood Pressure Mean 118 Blood Pressure Mean [Left Radial Artery] Blood Pressure Position Sitting Blood Pressure Position [Left Radial Artery] Pulse Oximetry 90 88 L Oxygen Delivery Method Nasal Cannula Nasal Cannula Oxygen Flow Rate 3 3 Sepsis Recent Fever Within 48 Hours No Sepsis New/Unexplained Change in Mental Status No Sepsis Action Taken by Nursing No Action Required 02/01/24 19:11 02/01/24 20:24 Temperature Temperature Source Pulse Rate Pulse Rate [Right Finger] 78 73 Pulse Rhythm Pulse Strength Respiratory Rate 20 18 Respiratory Effort / Characteristics Spontaneous Non-Labored Spontaneous Respiratory Depth Respiratory Pattern Blood Pressure Blood Pressure [Left Radial Artery] 125/91 125/91 Blood Pressure Mean Blood Pressure Mean [Left Radial Artery] 102 102 Blood Pressure Position Blood Pressure Position [Left Radial Artery] Lying Pulse Oximetry 88 L 91 Oxygen Delivery Method Nasal Cannula Nasal Cannula Oxygen Flow Rate 3 4 Sepsis Recent Fever Within 48 Hours Sepsis New/Unexplained Change in Mental Status Sepsis Action Taken by Nursing Laboratory Data 02/01/24 18:54 02/01/24 18:54 Lab Results 02/01/24 Range/Units 18:54 WBC 8.70 (4.8-10.8) K/ul RBC 3.60 L (4.20-5.40) M/uL Hgb 11.2 L (12.0-16.0) g/dl Hct 35.3 L (37.0-47.0) % MCV 98.1 (80.0-100.0) fL MCH 31.1 (25.0-34.0) pg MCHC 31.7 L (32.0-36.0) g/dL RDW Std Deviation 53.8 H (36.4-46.3) fL RDW Coeff of Shonda 15.1 H (11.5-14.5) % Plt Count 213 (130-400) K/uL MPV 10.0 (9.4-12.4) fL Immature Gran % (Auto) 0.6 % Neut % (Auto) 65.5 % Lymph % (Auto) 22.6 % [place] % (Auto) 9.2 % Eos % (Auto) 1.8 % Baso % (Auto) 0.3 % Neut # (Auto) 5.69 (1.40-6.50) K/uL Lymph # (Auto) 1.97 (1.20-3.40) K/uL [place] # (Auto) 0.80 H (0.11-0.59) K/uL Eos # (Auto) 0.16 (0.00-0.50) K/uL Baso # (Auto) 0.03 (0.00-0.20) K/uL Immature Gran # (Auto) 0.05 (0.01-0.20) K/uL Absolute Nucleated RBC 0.03 (0.00-0.12) K/uL Nucleated RBC % (auto) 0.3 % APTT 24 (21-31) Seconds PTT Ratio 0.9 Sodium 139 (136-145) mmol/L Potassium 4.2 (3.5-5.1) mmol/L Chloride 99 (98-107) mmol/L Carbon Dioxide 35 H (21-32) mmol/L Anion Gap 5 (3-11) BUN 20 (6-23) mg/dl Creatinine 1.04 (0.6-1.2) mg/dl Est Cr Clr Drug Dosing Not Reportable Est GFR ( Amer) 61.3 ml/min Est GFR (Non-Af Amer) 52.9 ml/min BUN/Creatinine Ratio 19.2 (10-20) Glucose 113 H (70-99(Fasting)) mg/dl Calcium 9.5 (8.6-10.3) mg/dl Magnesium 1.8 (1.7-2.4) mg/dl Total Bilirubin 0.6 (0.2-1.0) mg/dl AST 22 (13-39) U/L ALT 14 (7-52) U/L Alkaline Phosphatase 83 (34-104) U/L Troponin I High Sens 34.3 H (0-14) pg/ml Total Protein 6.7 (6.0-8.3) gm/dl Albumin 4.0 (3.4-5.0) gm/dl Globulin 2.7 (2.5-4.0) gm/dl Albumin/Globulin Ratio 1.5 (0.9-2) TSH 2.293 (0.300-4.500) uIu/ml Lyme Disease Screen Negative (Negative) Administered Medications Acetaminophen (Acetaminophen 325 Mg Tab) 650 mg PO QID PRN PRN Reason: pain/fever Stop: 03/02/24 20:36 Last Admin: 02/02/24 00:04 Dose: 650 mg Documented By: GAGAN Amitriptyline HCl (Amitriptyline Hcl 10 Mg Tab) 10 mg PO HS LIAM Stop: 03/02/24 20:59 Last Admin: 02/02/24 00:05 Dose: 10 mg Documented By: GAGAN Atorvastatin Calcium (Atorvastatin 40 Mg Tab) 80 mg PO PM LIAM Stop: 03/02/24 20:59 Last Admin: 02/02/24 00:04 Dose: 80 mg Documented By: GAGAN Insulin Aspart (Insulin Aspart Per Unit Charge) 0 units SC Q6 LIAM Stop: 03/03/24 00:00 Last Admin: 02/02/24 00:20 Dose: Not Given Documented By: GAGAN Pregabalin (Pregabalin 25 Mg Cap) 25 mg PO BID LIAM Stop: 10/31/24 20:59 Last Admin: 02/02/24 00:03 Dose: 25 mg Documented By: GAGAN Discontinued Medications Albuterol (Albut/Ipratrop 3mg/0.5mg Neb 3 Ml Vial) 3 ml NEB NOW STA; Protocol Stop: 02/01/24 20:38 Last Admin: 02/01/24 21:37 Dose: 3 ml Documented By: VICKIE Furosemide (Furosemide Inj 20 Mg/2 Ml Vial) 20 mg IV ONE ONE Stop: 02/01/24 19:39 Last Admin: 02/01/24 20:03 Dose: 20 mg Documented By: VICKIE Magnesium Sulfate/Dextrose (Magnesium Sulfate / D5w) 1 gm in 100 mls @ 50 mls/hr IV ONE ONE Stop: 02/01/24 21:35 Last Infusion: 02/02/24 00:21 Dose: Infused Documented By: Admin: 02/01/24 20:06 Dose: 50 mls/hr Documented By: VICKIE Discharge Plan Visit Data Chief Complaint: Cardiac Assessment Stated Complaint: ZIO HEART MONITOR ED Provider: Kenrick Villarreal Discharge Problem: Cardiac dysrhythmia, Paroxysmal A-fib, Ventricular tachycardia, Sinus pause Patient Disposition: Admitted As Inpatient Discharge Instructions Interventions: ED Discharge Assessment Last Done: 02/01/24 22:39
[2024-02-01 19:38] LABS: Thyroid Stimulating Hormone 2.293 uIu/ml (0.300-4.500)
[2024-02-01] MEDS: FUROSEMIDE INJ 20 MG/2 ML VIAL IV ONE (20:03)
[2024-02-01] MEDS: MAGNESIUM SULFATE / D5W 1 GM/100 ML BAG IV ONE (20:06)
[2024-02-01 20:13] LABS: Partial Thromboplastin Ratio 0.9; Partial Thromboplastin Time 24 Seconds (21-31)
--- NOTE | 2024-02-01 20:34 | History & Physical Report ---
Date of Service February 01, 2024 Assessment & Plan (1) Acute on chronic respiratory failure with hypoxia and hypercapnia: Plan: chronic respiratory failure secondary to COPD on home O2 Secondary to decompensated heart failure History diastolic dysfunction Troponin elevation slightly above Tachybradycardia syndrome, sinus pause on outpatient Zio patch, history A-fib hx CAD/CVA, PVD status post surgery valvular heart disease (trace MR, mild MR) Hypertension, erratic BP at the ER, lisinopril held by cardiology on last appointment due to low BP Hyperlipidemia statin Rx NAFLD DM2 on oral medications, well-controlled as of recent hemoglobin A1c of 6.07 November 2023 chronic anemia, hemoglobin to baseline past tobacco abuse Admit to PCU Supplemental O2 Check VBG Diuretic Rx Strict I/Os, daily weights, CHF education Follow troponin Hold home beta-lacy for now given TBS Cardiology consult Re: CHF, TBS N.p.o., hold Eliquis in anticipation of procedure ISS BG goal 1 10-1 40 DVT prophylaxis. SCDs while Eliquis on hold Full code Total critical care time was 40 minutes. Text document was generated using [employer] voice recognition software. It may contain grammatical or spelling errors. Kindly contact undersigned for clarification of any documentation item in question. 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 Medical history significant for chronic diastolic heart failure (EF 55 to 60%, TTE 2023), CAD, A-fib on Eliquis, PSVT, valvular heart disease (trace MR, mild MR), CVA, PVD status post surgery, hypertension, hyperlipidemia, chronic respiratory failure secondary to COPD on home O2, pulmonary nodules, NAFLD, DM2 on oral medications, chronic anemia (baseline hemoglobin of 11), past tobacco abuse. Last confinement November 2023 for syncope. Concern for bradycardia arrhythmia. Atenolol dose decreased on discharge. Outpatient Zio patch applied following [place] [facility] [place] 2 weeks ago. Patient also told to hold home lisinopril given low BP and intermittent hyperkalemia as per records. 4 days ago, patient noted shortness of breath with chest tightness and audible wheezing. No unusual cough symptoms. Compliant with home medications. Not sure about weight gain. Sinus pauses on outpatient Zio patch monitoring. Patient instructed to go to ER by cardiology provider. Lowest O2 sats of 80s documented on room air at the ER. 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 intake retired [employer] Allergies Allergy/AdvReac Type Severity Reaction Status Date / Time bupropion Allergy Intermediate ZYBAN-HIVES Verified 02/01/24 20:28 niacin Allergy Intermediate BURNED Verified 02/01/24 20:28 THROAT amoxicillin Allergy Mild Rash Verified 02/01/24 20:28 prednisone AdvReac Intermediate ELEVATES Verified 02/01/24 20:28 BLOOD PRESSURE levofloxacin AdvReac Mild Weakness Verified 02/01/24 20:28 Antihistamines - Alkylamine AdvReac BP goes up Verified 02/01/24 21:16 Antihistamines - Ethanolamine AdvReac BP goes up Verified 02/01/24 21:16 Antihistamines - AdvReac BP goes up Verified 02/01/24 21:16 Ethylenediamine Antihistamines - Piperazine AdvReac BP goes up Verified 02/01/24 21:16 Antihistamines - Piperidine AdvReac BP goes up Verified 02/01/24 21:16 Home Medications Medication Instructions Recorded Confirmed Type apixaban 5 mg tablet (Eliquis) 5 mg PO BID 01/31/22 02/01/24 History aspirin 81 mg tablet,delayed 81 mg PO DAILY 01/31/22 02/01/24 History release atorvastatin 80 mg tablet 80 mg PO PM 01/31/22 02/01/24 History cholecalciferol (vitamin D3) 25 25 mcg PO DAILY 01/31/22 02/01/24 History mcg (1,000 unit) tablet (Vitamin D3) coenzyme Q10 100 mg capsule 100 mg PO DAILY 01/31/22 02/01/24 History (CoQ-10) cyclosporine 0.05 % eye drops in a 1 - 2 drp ophthalmic (eye) QID PRN 01/31/22 02/01/24 History dropperette (Restasis) Dry Eyes empagliflozin 10 mg tablet 10 mg PO DAILY 01/31/22 02/01/24 History (Jardiance) esomeprazole magnesium 40 mg 40 mg PO BID 01/31/22 02/01/24 History capsule,delayed release fexofenadine 180 mg tablet 180 mg PO DAILY PRN ALLERGIES 01/31/22 02/01/24 History ipratropium 20 mcg-albuterol 100 1 puff inhalation QID PRN 01/31/22 02/01/24 History mcg/actuation mist for inhalation Shortness Of Breath Or Wheezing (Combivent Respimat) lisinopril 5 mg tablet 0 mg PO DAILY 01/31/22 02/01/24 History multivitamin 1 tab PO DAILY 01/31/22 02/01/24 History nitroglycerin 0.4 mg sublingual 0.4 mg sublingual DIRECTED PRN 01/31/22 02/01/24 History tablet (Nitrostat) Chest Pain peg 400-propylene glycol (PF) 0.4 1 drp OPB DIRECTED ##0 01/31/22 02/01/24 History %-0.3 % eye drops in a dropperette (Systane (PF)) pomegranate fruit extract 250 mg 0 mg PO DAILY 01/31/22 02/01/24 History capsule vitamin B complex 1 tab PO DAILY 01/31/22 11/26/23 History amitriptyline 10 mg tablet 10 mg PO HS 11/26/23 02/01/24 History ipratropium bromide 21 mcg (0.03 2 spray intranasal QID PRN Nasal 11/26/23 02/01/24 History %) nasal spray Congestion isosorbide mononitrate 30 mg 30 mg PO QAM 11/26/23 02/01/24 History tablet,extended release 24 hr pregabalin 25 mg capsule 25 mg PO BID 11/26/23 02/01/24 History atenolol 50 mg tablet 50 mg PO DAILY #0 tabs 11/29/23 02/01/24 Rx Past Med/Surg History Problem List (Updated 02/02/24 @ 08:57 by Naya Kiser PA-C) Tachy-maribel syndrome Sinus pause (Acute) Ventricular tachycardia (Acute) Paroxysmal A-fib (Acute) Cardiac dysrhythmia (Acute) CKD (chronic kidney disease), stage III CAD (coronary artery disease) Paroxysmal atrial fibrillation Left ankle injury Acute on chronic respiratory failure with hypoxia and hypercapnia Acute and chronic respiratory failure with hypercapnia (Acute) Syncope and collapse (Acute) Left ankle sprain (Acute) Encounter for pre-operative examination Carotid endarterectomy (Chronic 09/16/12) Medical History (Updated 02/02/24 @ 08:57 by Naya Kiser PA-C) Diabetes mellitus, type 2 Peripheral vascular disease Osteoarthritis Irritable bowel syndrome Diverticulitis GERD (gastroesophageal reflux disease) Peripheral neuropathy BLE Stroke LUNAR STROKE 1994 Atrial fibrillation PAST HX/NO PROBLEMS Hypertension Hyperlipidemia On home oxygen therapy 2L NC HS ONLY Chronic obstructive pulmonary disease Surgical History History of bilateral tubal ligation History of colonoscopy History of cholecystectomy History of tooth extraction History of tonsillectomy History of adenoidectomy History of carotid endarterectomy LEFT/RT History of cardiac cath 2003/NO STENTS Family History Family/Other Family history of diabetes mellitus Brother Family history of esophageal cancer Social History Smoking Status: Former smoker Tobacco Type: Cigarettes Cigarettes Per Day: 1 pack; Second Hand Exposure: No; Do You Dip or Chew Tobacco: No; Tobacco Cessation Education Requested by Patient: No Hx Alcohol Use: No Hx Substance Use: No Preferred Language: German Communication Ability: Impaired Communication Ability Comment: Hx stroke- slurred speech Assistant Plant 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 Required: No Beliefs That Will Affect Care: None Current Living Situation: Alone Other Information That Helps Us Care for You: No Feels Safe at Home: Yes Safety Concerns: Feels Safe At This Time Assistive Devices: None Review of Systems Review of Systems: As per HPI, all other systems reviewed and negative Physical Exam Physical Exam: GENERAL: Slightly uncomfortable, obese, dysarthric, aphasic, no respiratory distress SKIN: Pallor, warm HEENT: Pale palpebral conjunctivae, no ptosis, right nasolabial fold flattening (chronic), dry buccal mucosa NECK : Supple, no tenderness CHEST : Decreased breath sounds, no tenderness HEART : Tachycardic, no obvious murmurs ABDOMEN: Some distention, nontender EXTREMITIES : Minimal LE swelling, no LE tenderness, no other conspicuous defo rmities noted NEUROLOGIC : Coherent, aphasic, chronic facial asymmetry, dysarthric, gait and stance not assessed Results & Data Results & Data Vital Signs (Past 12 Hours) Vital Signs Temp Pulse Pulse Resp BP BP Pulse Ox 02/01/24 20:24 73 18 125/91 91 02/01/24 19:11 78 20 125/91 88 L 02/01/24 19:11 88 L 02/01/24 18:58 82 02/01/24 18:39 36.2 C L 73 20 185/85 H 90 O2 Del Method O2 Flow Rate 02/01/24 20:24 Nasal Cannula 4 02/01/24 19:11 Nasal Cannula 3 02/01/24 19:11 Nasal Cannula 3 02/01/24 18:58 02/01/24 18:39 Nasal Cannula 3 Laboratory Results Laboratory Results WBC 8.70 K/ul (4.8-10.8) 02/01/24 18:54 RBC 3.60 M/uL (4.20-5.40) L 02/01/24 18:54 Hgb 11.2 g/dl (12.0-16.0) L 02/01/24 18:54 Hct 35.3 % (37.0-47.0) L 02/01/24 18:54 MCV 98.1 fL (80.0-100.0) 02/01/24 18:54 MCH 31.1 pg (25.0-34.0) 02/01/24 18:54 MCHC 31.7 g/dL (32.0-36.0) L 02/01/24 18:54 RDW Std Deviation 53.8 fL (36.4-46.3) H 02/01/24 18:54 RDW Coeff of Shonda 15.1 % (11.5-14.5) H 02/01/24 18:54 Plt Count 213 K/uL (130-400) 02/01/24 18:54 MPV 10.0 fL (9.4-12.4) 02/01/24 18:54 Immature Gran % (Auto) 0.6 % 02/01/24 18:54 Neut % (Auto) 65.5 % 02/01/24 18:54 Lymph % (Auto) 22.6 % 02/01/24 18:54 Adams % (Auto) 9.2 % 02/01/24 18:54 Eos % (Auto) 1.8 % 02/01/24 18:54 Baso % (Auto) 0.3 % 02/01/24 18:54 Neut # (Auto) 5.69 K/uL (1.40-6.50) 02/01/24 18:54 Lymph # (Auto) 1.97 K/uL (1.20-3.40) 02/01/24 18:54 Adams # (Auto) 0.80 K/uL (0.11-0.59) H 02/01/24 18:54 Eos # (Auto) 0.16 K/uL (0.00-0.50) 02/01/24 18:54 Baso # (Auto) 0.03 K/uL (0.00-0.20) 02/01/24 18:54 Immature Gran # (Auto) 0.05 K/uL (0.01-0.20) 02/01/24 18:54 Absolute Nucleated RBC 0.03 K/uL (0.00-0.12) 02/01/24 18:54 Nucleated RBC % (auto) 0.3 % 02/01/24 18:54 APTT 24 Seconds (21-31) 02/01/24 18:54 PTT Ratio 0.9 02/01/24 18:54 Sodium 139 mmol/L (136-145) 02/01/24 18:54 Potassium 4.2 mmol/L (3.5-5.1) 02/01/24 18:54 Chloride 99 mmol/L (98-107) 02/01/24 18:54 Carbon Dioxide 35 mmol/L (21-32) H 02/01/24 18:54 Anion Gap 5 (3-11) 02/01/24 18:54 BUN 20 mg/dl (6-23) 02/01/24 18:54 Creatinine 1.04 mg/dl (0.6-1.2) 02/01/24 18:54 Est Cr Clr Drug Dosing Not Reportable 02/01/24 18:54 Est GFR ( Amer) 61.3 ml/min 02/01/24 18:54 Est GFR (Non-Af Amer) 52.9 ml/min 02/01/24 18:54 BUN/Creatinine Ratio 19.2 (10-20) 02/01/24 18:54 Glucose 113 mg/dl (70-99(Fasting)) H 02/01/24 18:54 Calcium 9.5 mg/dl (8.6-10.3) 02/01/24 18:54 Magnesium 1.8 mg/dl (1.7-2.4) 02/01/24 18:54 Total Bilirubin 0.6 mg/dl (0.2-1.0) 02/01/24 18:54 AST 22 U/L (13-39) 02/01/24 18:54 ALT 14 U/L (7-52) 02/01/24 18:54 Alkaline Phosphatase 83 U/L (34-104) 02/01/24 18:54 Troponin I High Sens 34.3 pg/ml (0-14) H 02/01/24 18:54 Total Protein 6.7 gm/dl (6.0-8.3) 02/01/24 18:54 Albumin 4.0 gm/dl (3.4-5.0) 02/01/24 18:54 Globulin 2.7 gm/dl (2.5-4.0) 02/01/24 18:54 Albumin/Globulin Ratio 1.5 (0.9-2) 02/01/24 18:54 TSH 2.293 uIu/ml (0.300-4.500) 02/01/24 18:54 Lyme Disease Screen Negative (Negative) 02/01/24 18:54 Diagnostic Findings Chest x-ray as per my interpretation cardiomegaly/congestion EKG as per my interpretation : Rate 80, NSR, normal axis, incomplete RBBB, T wave abnormalities inferior leads
[2024-02-01] MEDS ORDERED: PROMETHAZINE 6.25 MG/50.25 ML BAG IV PRN (20:37)
[2024-02-01] MEDS ORDERED: NON-FORMULARY MEDICATION (Peg 400-Propylene Glycol (Pf) [Systane (Pf)] 0.4-0.3 % Dropperet OPB SCH (21:00)
[2024-02-01] MEDS ORDERED: ARTIFICIAL TEARS OP PRN (21:12)
[2024-02-01 21:27] LABS: Base Excess VBG 7.4 mEq/L; HCO3 VBG 35 mmol/L; Oxygen Saturation VBG < 60.0 %; PCO2 VBG 64 mmHg (38-50); PO2 VBG 28 mmHg; pH VBG 7.35 (7.36-7.41)
[2024-02-01] MEDS: ALBUT/IPRATROP 3MG/0.5MG NEB 3 ML VIAL NEB STA (21:37)
[2024-02-01] MEDS ORDERED: GLUCOSE 10 TAB/TUBE PO PRN (23:29)
[2024-02-01] MEDS ORDERED: GLUCOSE 40% GEL 15 GM TUBE PO PRN (23:29)
[2024-02-01] MEDS ORDERED: DEXTROSE 50% 50 ML SYRINGE IV PRN (23:29)
[2024-02-01] MEDS ORDERED: GLUCAGON FOR INJ 1 MG VIAL SQ PRN (23:29)
[2024-02-01] MEDS ORDERED: CARBOHYDRATES FOR HYPOGLYCEMIA PO PRN (23:29)
[2024-02-02] MEDS: PREGABALIN 25 MG CAP PO SCH (00:03)
[2024-02-02] MEDS: ATORVASTATIN 40 MG TAB PO SCH (00:04)
[2024-02-02] MEDS: ACETAMINOPHEN 325 MG TAB PO PRN (00:04)
[2024-02-02] MEDS: AMITRIPTYLINE HCL 10 MG TAB PO SCH (00:05)
[2024-02-02] MEDS: INSULIN ASPART PER UNIT CHARGE SC SCH ×2 (00:20→17:56)
--- NOTE | 2024-02-02 02:40 | Communication Note ---
Date of Service: February 02, 2024
[2024-02-02 03:08] LABS: HCO3 VBG 36 mmol/L; Oxygen Saturation VBG 78.5 %; PCO2 VBG 58 mmHg (38-50); PO2 VBG 48 mmHg
[2024-02-02 03:19] LABS: Basophils # (auto) 0.04 K/uL (0.00-0.20); Basophils % (auto) 0.4 %; Eosinophils # (auto) 0.12 K/uL (0.00-0.50); Eosinophils % (auto) 1.3 %; Hematocrit (blood only) 33.2 % (37.0-47.0); Hemoglobin 11.1 g/dl (12.0-16.0); Immature Granulocytes # (auto) 0.05 K/uL (0.01-0.20); Immature Granulocytes % (auto) 0.5 %; Lymphocytes # (auto) 2.05 K/uL (1.20-3.40); Mean Corpuscular Hemoglobin 32.1 pg (25.0-34.0); Mean Corpuscular Hgb Conc 33.4 g/dL (32.0-36.0); Mean Platelet Volume 10.1 fL (9.4-12.4); Monocytes # (auto) 0.75 K/uL (0.11-0.59); Neutrophils # (auto) 6.31 K/uL (1.40-6.50); Neutrophils % (auto) 67.8 %; Nucleated RBC # (auto) 0.02 K/uL (0.00-0.12); Nucleated RBC % (auto) 0.2 %; Platelet Count 196 K/uL (130-400); RDW Standard Deviation 50.7 fL (36.4-46.3); Red Blood Count 3.46 M/uL (4.20-5.40); White Blood Count 9.32 K/ul (4.8-10.8)
[2024-02-02 03:32] LABS: Calcium 9.4 mg/dl (8.6-10.3); Creatinine Clr Calc Pharmacy 54.5 ml/min; Est GFR (African American) 60.6 ml/min; Est GFR (Non-African American) 52.3 ml/min; Potassium 3.2 mmol/L (3.5-5.1)
[2024-02-02] MEDS: amLODIPine BESYLATE 5 MG TAB PO SCH (03:37)
[2024-02-02 03:42] LABS: Troponin I High Sensitivity 37.3 pg/ml (0-14)
[2024-02-02] MEDS: POTASSIUM CHLORIDE CRTAB 20 MEQ TABCR PO STA (03:45)
[2024-02-02] MEDS ORDERED: ATROPINE SULFATE 0.1 MG/ML 10ML SYR IV PRN (05:39)
--- NOTE | 2024-02-02 06:44 | XRay Report ---
XR chest 1V portable CLINICAL HISTORY: Dysrhythmia. COMPARISON STUDY: Chest radiograph November 26, 2023. FINDINGS: There is no pneumothorax. Small bilateral pleural effusions are present. There are associat ed bibasilar opacities which favor atelectasis. Cardiomegaly is again noted. Interstitial thickening represents mild pulmonary edema. Right lung airspace opacity shown on prior exam have improved. IMPRESSION: Cardiomegaly with interstitial pulmonary edema and small bilateral pleural effusions and associated bibasilar opacities which favor atelectasis. ACT 112: Negative or not required by law. Electronically signed by: Nima Kelly M.D. 02/02/2024 6:41 AM
--- NOTE | 2024-02-02 08:42 | Cardiology Consultation ---
Date of Consultation February 02, 2024 Assessment & Plan (1) Tachy-maribel syndrome: (2) Sinus pause: (3) Paroxysmal A-fib: Plan Patient with evidence of tachybrady syndrome with multiple symptomatic conversion pauses on outpatient ZIO. Past syncope/near syncope. Recommend dual chamber pacemaker. Risks/benefits discussed with patient. She is agreeable to proceeding. Keep NPO for procedure today with Dr. Barcenas Currently beta lacy on hold. Transition to metoprolol after pacemaker. 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 Resume after procedure for PAF. SOB and wheezing noted on admission. Treated with nebs and dose of IV lasix. Hypokalemia this morning - supplemented and recheck BMP and magnesium. Currently patient appears euvolemic. Known chronic respiratory failure with hypoxia. Continue supplemental O2. Case discussed with Dr. Bustamante and Dr. Barcenas. Will follow. I spent a total of 60 minutes on the date of service in preparation, delivery, and documentation of the care provided to this patient, excluding any time spent in the performance of separately billed services. Naya Kiser PA-C Department of Cardiology, [facility] This chart was completed in part utilizing Speech Voice Recognition Software. Grammatical errors, random word insertions, pronoun errors, and incomplete sentences are an occasional consequence of this system due to software limitations, ambient noise, and hardware issues. Any formal questions or concerns about the content, text, or information contained within the body of this dictation should be directly addressed to the provider for clarification. Supervising Physician Co-Signing Physician Notes Patient was seen and personally examined. Full assessment and plan as outlined above. Care and management discussed with advanced provider and personally endorsed 73-year-old female with paroxysmal atrial fibrillation with tachybradycardia syndrome. Symptomatic with near syncope, dizziness and lightheadedness Zio patch event monitor with significant symptomatic events prior to hospitalization Planned dual-chamber pacemaker today. Eliquis on hold to be resumed post procedure Beta-lacy transition postop versus antiarrhythmic therapy as noted Will continue to follow I spent a total of 20 minutes on the date of service in preparation, delivery, and documentation of the care provided to this patient, excluding any time spent in the performance of separately billed services. History of Present Illness Reason for Consultation: Tachybrady syndrome Requesting Physician: [facility] Attending Physician: Dr. Bustamante History of Present Illness Patient is a complex 73 year old female known to [facility] with complex history, referred to ER yesterday for evidence of tachybrady syndrome on outpatient monitor with frequent sinus pauses and conversion pauses correlating with dizziness/near syncope. In July 2023 patient began to experience abnormal sensations in the neck, feeling hot and flushed on the top of the head. In October patient suffered 2 syncopal episodes, resultant ankle injury requiring hospitalization at [facility]. Concern for bradyarrhythmias noted. Atenolol dosing decreased to 50 mg daily. Telemetry monitoring following reduction in atenolol not notable for significant bradycardia though did demonstrate transient atrial fibrillation with a controlled ventricular response. Patient chronically prescribed Eliquis anticoagulation. Resting echocardiography in November 20, 2023 revealed preserved LV systolic function, EF 55 to 60%, with trace mitral regurgitation. Left atrium was mildly dilated. Mild mitral stenosis reported. No pericardial effusion observed. Due to ongoing pre syncopal symptoms, patient underwent outpatient ZIO which was resulted yesterday and paroxysmal atrial fibrillation (4% burden) with multiple symptomatic conversion pauses ranging from 3.7 - 5.2 sec. She was referred to the ER for evaluation. Upon arrival to the ER, patient also reported worsening SOB/wheezing over the last several days. Chest xray demonstrated pulm vascular congestion with small b/l pleural effusions. she was treated with one dose IV lasix and nebulizers. She wears chronic supplemental O2 3 L. Eliquis placed on hold. Last dose was yesterday morning. Atenolol also on hold. At time of consult, patient reports feeling fairly well. She reports her last "bad spell" of hot flushing/near syncope was yesterday AM. No true syncope. She reports her SOB is at baseline this morning. NO chest pain. She had conversion pause around 5:10 AM but was in bed/asleep. no symptoms. History includes: 1. ASCVD with a chronic total RCA occlusion, 30% LCX stenosis, and luminal irregularities of all other vessels by 01/2006 cath at [facility]. 2. Ischemic cardiomyopathy with past LVEF 40%. 3. Carotid disease s/p bilateral CEA's with bilateral recurrence 4. Acute left MCA stroke in December 2018 5. Paroxysmal atrial fibrillation observed at [facility] in December 2018. 6. PAD with L>R claudication with leg pain. 7. Subclavian artery stenosis versus occlusion. 8. Right renal artery stenosis. 9. SMA stenosis. 10. PSVT. 11. COPD. 12. Severe nocturnal hypoxemia treated with supplemental oxygen therapy QHS 13. Secondary polycythemia. 14. Type II diabetes mellitus with neuropathy. 15. Pulmonary nodules. 16. Hypertension. 17. Hyperlipidemia. 18. GERD. Allergies Allergy/AdvReac Type Severity Reaction Status Date / Time bupropion Allergy Intermediate ZYBAN-HIVES Verified 02/01/24 20:28 niacin Allergy Intermediate BURNED Verified 02/01/24 20:28 THROAT amoxicillin Allergy Mild Rash Verified 02/01/24 20:28 prednisone AdvReac Intermediate ELEVATES Verified 02/01/24 20:28 BLOOD PRESSURE levofloxacin AdvReac Mild Weakness Verified 02/01/24 20:28 Antihistamines - Alkylamine AdvReac BP goes up Verified 02/01/24 21:16 Antihistamines - Ethanolamine AdvReac BP goes up Verified 02/01/24 21:16 Antihistamines - AdvReac BP goes up Verified 02/01/24 21:16 Ethylenediamine Antihistamines - Piperazine AdvReac BP goes up Verified 02/01/24 21:16 Antihistamines - Piperidine AdvReac BP goes up Verified 02/01/24 21:16 Home Medications Medication Instructions Recorded Confirmed Type apixaban 5 mg tablet (Eliquis) 5 mg PO BID 01/31/22 02/01/24 History aspirin 81 mg tablet,delayed 81 mg PO DAILY 01/31/22 02/01/24 History release atorvastatin 80 mg tablet 80 mg PO PM 01/31/22 02/01/24 History cholecalciferol (vitamin D3) 25 25 mcg PO DAILY 01/31/22 02/01/24 History mcg (1,000 unit) tablet (Vitamin D3) coenzyme Q10 100 mg capsule 100 mg PO DAILY 01/31/22 02/01/24 History (CoQ-10) cyclosporine 0.05 % eye drops in a 1 - 2 drp ophthalmic (eye) QID PRN 01/31/22 02/01/24 History dropperette (Restasis) Dry Eyes empagliflozin 10 mg tablet 10 mg PO DAILY 01/31/22 02/01/24 History (Jardiance) esomeprazole magnesium 40 mg 40 mg PO BID 01/31/22 02/01/24 History capsule,delayed release fexofenadine 180 mg tablet 180 mg PO DAILY PRN ALLERGIES 01/31/22 02/01/24 History ipratropium 20 mcg-albuterol 100 1 puff inhalation QID PRN 01/31/22 02/01/24 History mcg/actuation mist for inhalation Shortness Of Breath Or Wheezing (Combivent Respimat) lisinopril 5 mg tablet 0 mg PO DAILY 01/31/22 02/01/24 History multivitamin 1 tab PO DAILY 01/31/22 02/01/24 History nitroglycerin 0.4 mg sublingual 0.4 mg sublingual DIRECTED PRN 01/31/22 02/01/24 History tablet (Nitrostat) Chest Pain peg 400-propylene glycol (PF) 0.4 1 drp OPB DIRECTED ##0 01/31/22 02/01/24 History %-0.3 % eye drops in a dropperette (Systane (PF)) pomegranate fruit extract 250 mg 0 mg PO DAILY 01/31/22 02/01/24 History capsule vitamin B complex 1 tab PO DAILY 01/31/22 11/26/23 History amitriptyline 10 mg tablet 10 mg PO HS 11/26/23 02/01/24 History ipratropium bromide 21 mcg (0.03 2 spray intranasal QID PRN Nasal 11/26/23 02/01/24 History %) nasal spray Congestion isosorbide mononitrate 30 mg 30 mg PO QAM 11/26/23 02/01/24 History tablet,extended release 24 hr pregabalin 25 mg capsule 25 mg PO BID 11/26/23 02/01/24 History atenolol 50 mg tablet 50 mg PO DAILY #0 tabs 11/29/23 02/01/24 Rx Patient History Medical History (Updated 02/02/24 @ 08:57 by Naya Kiser PA-C) Diabetes mellitus, type 2 Peripheral vascular disease Osteoarthritis Irritable bowel syndrome Diverticulitis GERD (gastroesophageal reflux disease) Peripheral neuropathy BLE Stroke LUNAR STROKE 1994 Atrial fibrillation PAST HX/NO PROBLEMS Hypertension Hyperlipidemia On home oxygen therapy 2L NC HS ONLY Chronic obstructive pulmonary disease Surgical History History of bilateral tubal ligation History of colonoscopy History of cholecystectomy History of tooth extraction History of tonsillectomy History of adenoidectomy History of carotid endarterectomy LEFT/RT History of cardiac cath 2003/NO STENTS Family History Family/Other Family history of diabetes mellitus Brother Family history of esophageal cancer Social History Smoking Status: Former smoker Tobacco Type: Cigarettes Cigarettes Per Day: 1 pack; Second Hand Exposure: No; Do You Dip or Chew Tobacco: No; Tobacco Cessation Education Requested by Patient: No Hx Alcohol Use: No Hx Substance Use: No Preferred Language: [place] Leonean Communication Ability: Impaired Communication Ability Comment: Hx stroke- slurred speech Specifications Checker Required: No Beliefs That Will Affect Care: None Current Living Situation: Alone Other Information That Helps Us Care for You: No Feels Safe at Home: Yes Safety Concerns: Feels Safe At This Time Assistive Devices: None Review of Systems Review of Systems: All systems reviewed & are unremarkable except as noted in HPI & below Physical Exam Constitutional: WD/WN, vitals as above + obese; no acute distress Neck: trachea midline, no thyromegaly Respiratory: no respiratory distress Auscultation: + diminished lung sounds; no crackles, no rales and no rhonchi Cardiovascular: Rate/Rhythm: regular rate and regular rhythm Heart Sounds: normal S1 and normal S2; no murmur Vessels: no JVD Extremities: no edema Gastrointestinal (Abdomen): normal bowel sounds, soft, nontender, no hepatosplenomegaly Skin: no rashes, warm and dry Results & Data Vital Signs (Past 12 Hours) Vital Signs Temp Pulse Pulse Resp BP BP Pulse Ox 02/02/24 08:03 37.1 C 86 18 153/99 H 93 02/02/24 07:31 84 02/02/24 03:34 36.3 C L 56 L 20 118/79 92 02/02/24 00:27 89 02/02/24 00:00 02/01/24 23:39 02/01/24 23:39 37.4 C 87 22 184/97 H 91 02/01/24 23:29 02/01/24 23:03 37.4 C 87 22 184/97 H 91 02/01/24 22:39 73 19 121/90 91 02/01/24 22:00 80 18 125/91 92 Pulse Ox O2 Del Method O2 Del Method O2 Flow Rate O2 Flow Rate 02/02/24 08:03 Nasal Cannula 5 02/02/24 07:31 02/02/24 03:34 Nasal Cannula 5 02/02/24 00:27 02/02/24 00:00 92 Nasal Cannula 5 02/01/24 23:39 Nasal Cannula 5 02/01/24 23:39 Nasal Cannula 5 02/01/24 23:29 92 Nasal Cannula 5 02/01/24 23:03 Nasal Cannula 5 02/01/24 22:39 Room Air 02/01/24 22:00 Nasal Cannula 4 Laboratory Results Cardiac Enzymes 02/01/24 02/01/24 02/02/24 Range/Units 18:54 21:20 02:40 AST 22 (13-39) U/L Troponin I High Sens 34.3 H 37.7 H 37.3 H (0-14) pg/ml Coagulation 02/01/24 Range/Units 18:54 APTT 24 (21-31) Seconds CBC 02/01/24 02/02/24 Range/Units 18:54 02:40 WBC 8.70 9.32 (4.8-10.8) K/ul RBC 3.60 L 3.46 L (4.20-5.40) M/uL Hgb 11.2 L 11.1 L (12.0-16.0) g/dl Hct 35.3 L 33.2 L (37.0-47.0) % Plt Count 213 196 (130-400) K/uL Neut # (Auto) 5.69 6.31 (1.40-6.50) K/uL Lymph # (Auto) 1.97 2.05 (1.20-3.40) K/uL [place] # (Auto) 0.80 H 0.75 H (0.11-0.59) K/uL Eos # (Auto) 0.16 0.12 (0.00-0.50) K/uL Baso # (Auto) 0.03 0.04 (0.00-0.20) K/uL Comprehensive Metabolic Panel 02/01/24 02/02/24 Range/Units 18:54 02:40 Sodium 139 142 (136-145) mmol/L Potassium 4.2 3.2 L D (3.5-5.1) mmol/L Chloride 99 99 (98-107) mmol/L Carbon Dioxide 35 H 34 H (21-32) mmol/L BUN 20 21 (6-23) mg/dl Creatinine 1.04 1.05 (0.6-1.2) mg/dl Glucose 113 H 116 H (70-99(Fasting)) mg/dl Calcium 9.5 9.4 (8.6-10.3) mg/dl AST 22 (13-39) U/L ALT 14 (7-52) U/L Alkaline Phosphatase 83 (34-104) U/L Total Protein 6.7 (6.0-8.3) gm/dl Albumin 4.0 (3.4-5.0) gm/dl Intake and Output 02/01/24 02/02/24 02/02/24 22:59 06:59 14:59 Intake Total 100 / 100 Output Total 1100 / 1100 200 / 200 Balance -1000 / -1000 -200 / -200 Intake: IV 100 / 100 Magnesium Sulfate / D5w 1 gm In 100 / 100 100 ml @ 50 mls/hr IV ONE ONE Rx#:[id number] Output: Urine 1100 / 1100 200 / 200 Other: Other Intake Source npo Weight 101 kg Weight Measurement Method Built in [facility] Diagnostic Findings Telemetry reviewed: Currently NSR with HR's in the 80's. Overnight she had afib, converting to NSR around 5:10 AM with 3.1 second conversion pause. EKG reviewed dated 02/01/2024: NSR with RSR in V1, consistent with Right bundle pattern Artifact noted Chest X-Ray 02/01/24 18:49 XR chest 1V portable CLINICAL HISTORY: Dysrhythmia. COMPARISON STUDY: Chest radiograph November 26, 2023. FINDINGS: There is no pneumothorax. Small bilateral pleural effusions are present. There are associated bibasilar opacities which favor atelectasis. Cardiomegaly is again noted. Interstitial thickening represents mild pulmonary edema. Right lung airspace opacity shown on prior exam have improved. IMPRESSION: Cardiomegaly with interstitial pulmonary edema and small bilateral pleural effusions and associated bibasilar opacities which favor atelectasis. ACT 112: Negative or not required by law. Electronically signed by: Nima Kelly M.D. 02/02/2024 6:41 AM Prior data reviewed: [facility] report reviewed dated Jan 2024: CONCLUSIONS: Duration: 6 days, 22 hours Patient had a min HR of 50 bpm, max HR of 114 bpm, and avg HR of 70 bpm. Predominant underlying rhythm was Sinus Rhythm. Bundle Branch Block/IVCD was present. 1 run of Ventricular Tachycardia occurred lasting 13 beats with a max rate of 114 bpm (avg 104 bpm). Atrial Fibrillation occurred (4% burden), ranging from 54-113 bpm (avg of 74 bpm), the longest lasting 1 hour 50 mins with an avg rate of 73 bpm. 8 Pauses occurred, the longest lasting 5.2 secs (12 bpm). Atrial Fibrillation and Pause were detected within +/- 45 seconds of symptomatic patient event(s). Isolated SVEs were occasional (1.2%, 8099), SVE Couplets were rare (<1.0%, 244), and SVE Triplets were rare (<1.0%, 22). Isolated VEs were rare (<1.0%), and no V E Couplets or VE Triplets were present. MD notification criteria for Pauses met - report posted prior to notification per account request (SE). Paroxysmal atrial fibrillation (4% burden) with multiple symptomatic conversion pauses ranging from 3.7 - 5.2 sec. Clinical correlation advised. Consider electrophysiology consultation for pacemaker implantation. Results discussed with the ordering provider via tiger text. Echo reviewed from November 2023 at [facility]: LVEF at 55-60% Trace MR Normal inferior vena cava size and collapsibility Mild mitral stenosis Medications Administered Current Inpatient Medications Acetaminophen (Acetaminophen 325 Mg Tab) 650 mg PO QID PRN PRN Reason: pain/fever Stop: 03/02/24 20:36 Last Admin: 02/02/24 00:04 Dose: 650 mg Amitriptyline HCl (Amitriptyline Hcl 10 Mg Tab) 10 mg PO HS LIAM Stop: 03/02/24 20:59 Last Admin: 02/02/24 00:05 Dose: 10 mg Artificial Tears (Artificial Tears) 1 drops OP QID PRN PRN Reason: Dryness Stop: 03/02/24 21:11 Aspirin (Aspirin 81 Mg Ectab) 81 mg PO DAILY LIAM Stop: 03/03/24 08:59 Last Admin: 02/02/24 08:47 Dose: 81 mg Atorvastatin Calcium (Atorvastatin 40 Mg Tab) 80 mg PO PM LIAM Stop: 03/02/24 20:59 Last Admin: 02/02/24 00:04 Dose: 80 mg Atropine Sulfate (Atropine Sulfate 0.1 Mg/Ml 10ml Syr) 1 mg IV Q3M PRN PRN Reason: symptomatic bradycardia Dextrose (Dextrose 50% 50 Ml Syringe) 25 - 50 ml IV UD PRN; Protocol PRN Reason: Hypoglycemia Protocol Stop: 03/02/24 23:28 Glucagon (Glucagon For Inj 1 Mg Vial) 1 mg SQ UD PRN; Protocol PRN Reason: Hypoglycemia Protocol Stop: 03/02/24 23:28 Glucose (Glucose 40% Gel 15 Gm Tube) 15 - 30 gm PO UD PRN; Protocol PRN Reason: Hypoglycemia Protocol Stop: 03/02/24 23:28 Glucose (Glucose 10 Tab/Tube) 4 - 8 tab PO UD PRN; Protocol PRN Reason: Hypoglycemia Treatment Stop: 03/02/24 23:28 Promethazine HCl (Phenergan) 6.25 mg in 50.25 mls @ 201 mls/hr IV Q6H PRN PRN Reason: Nausea And Vomiting Stop: 03/02/24 20:36 Insulin Aspart (Insulin Aspart Per Unit Charge) 0 units SC Q6 LIAM Stop: 03/03/24 00:00 Last Admin: 02/02/24 05:33 Dose: Not Given Isosorbide Mononitrate (Isosorbide [place] Extended Rel 30 Mg Tabcr) 30 mg PO QAM LIAM Stop: 03/03/24 08:59 Last Admin: 02/02/24 08:47 Dose: 30 mg Miscellaneous (Carbohydrates For Hypoglycemia ) 15 - 30 gm PO UD PRN PRN Reason: Hypoglycemia Protocol Stop: 03/02/24 23:28 Multivitamins (Multivitamin Tab) 1 tab PO DAILY [facility] Stop: 03/03/24 08:59 Last Admin: 02/02/24 08:47 Dose: 1 tab Pantoprazole Sodium (Pantoprazole 40 Mg Tab) 40 mg PO BIDM [facility] Stop: 03/03/24 07:59 Last Admin: 02/02/24 08:48 Dose: 40 mg Pregabalin (Pregabalin 25 Mg Cap) 25 mg PO BID LIAM Stop: 03/02/24 20:59 Last Admin: 02/02/24 08:48 Dose: 25 mg Tramadol HCl (Tramadol Hcl 50 Mg Tablet) 25 - 50 mg PO Q4H PRN PRN Reason: Pain Stop: 03/02/24 20:36
[2024-02-02] MEDS: ASPIRIN 81 MG ECTAB PO SCH (08:47)
[2024-02-02] MEDS: ISOSORBIDE MONO EXTENDED REL 30 MG TABCR PO SCH (08:47)
[2024-02-02] MEDS: MULTIVITAMIN TAB PO SCH (08:47)
[2024-02-02] MEDS: PANTOprazole 40 MG TAB PO SCH (08:48)
[2024-02-02] MEDS ORDERED: lisinopril 5 MG TAB PO SCH (09:00)
[2024-02-02 09:15] LABS: Calcium 9.4 mg/dl (8.6-10.3); Creatinine Clr Calc Pharmacy 57.1 ml/min; Est GFR (African American) 64.3 ml/min; Est GFR (Non-African American) 55.5 ml/min; Magnesium 1.7 mg/dl (1.7-2.4); Potassium 3.6 mmol/L (3.5-5.1)
--- OUTSIDE RECORDS SUMMARY | 2024-02-02 11:43 | External Medical Summary | Summary of Care ---
Author Name Unknown Organization [facility] Address [address] [place] [address] Phone [phone] Care Team Providers Care Substation Operator Automatic Name Role Phone Daysi Pham MD Primary Care Provide r Reason for Visit * Reason Comments Follow Up * Evaluate & Treat - Unlimited Visits (Within 10 days (routine)) - Authorized Specialty Diagnoses / Procedures Referred By Contact Referred To Contact Cardiovascular Medicine / Cardiology Diagnoses Syncope and collapse Chronic coronary artery disease Bradycardia Daysi Pham MD [address] [place] [address] [place] [id number] Referral ID Status Reason Start Date Expiration Date Visits Requested Visits Authorized [id number] Authorized Specialty Services Required 12/06/[phone] Encounter Details Date Type Department Care Team (Late st Contact Info) Description 01/20/2024 2:30 PM EDT Office Visit Cardiology, [facility] [address] [place] [address] Enrico De La Torre PA-C [address] [place] [address] Hospital discharge follow-up*; Paroxysmal atrial fibrillation (HCC); HTN, goal below 140/90; Chronic coronary artery disease; Dyslipidemia, goal LDL below 100; Near syncope Allergies Active Allergy Reactions Criticality Noted Date Comments Amoxicillin Rash 11/19/2011 Levofloxacin Other (Please comment) 11/13/2013 Weakness, lightheadedness, nausea Niacin Er 01/30/2010 Burned throat. Prednisone 09/03/2012 Blood pressure went up. Bupropion Hcl 01/30/2010 documented as of this encounter (statuses as of 01/20/2024) Medications Medication Sig Dispensed Refills Start Date End Date Status VITAMIN B COMPLEX PO CAPSIndications:supp lementation Take by mouth 1 Capsule daily . Active CO Q 10 100 MG PO CAPSIndications:leg pain Take by mouth 100 mg daily . Active ASPIRIN 81 MG PO TABSIndications:Volex Take 1 Tablet by mouth in the morning. Active oxygen GAS Use 2 L/min(Oxygen) as directed at bedtime. Active Respiratory Therapy Supplies (NEBULIZER) DEVIIndications:COPD , moderate (HCC) Use as directed. Duonebs, 3 ml's every 6 hours as needed 1 Device 05/21/2016 Active Multiple Vitamins-Minerals (MULTIVITAMIN WOMEN) TABSIndications:[employer] Take by mouth 1 Tablet daily . Active nitroglycerin (NITROSTAT) 0.4 MG SUBLIndications:[employer] Program Coordinator lev coronary artery disease Place 1 Tab under the tongue as needed for Pain, Chest. May repeat 3 times. If chest pain continues, call 911. 25 Tab 1 01/31/2019 Active Wheat Dextrin (BENEFIBER) powderIndications:[employer] Take by mouth . 1 teaspoon daily [...] 90 Tablet 3 02/26/2023 4 Active Ipratropium [place] 0.03 % Nasal Solution (Atrovent)Indication s:Rhinorrhea ADMINISTER 2 SPRAYS INTO EACH NOSTRIL 4 TIMES A DAY NEEDED FOR RHINITIS. FOR RUNNY NOSE 90 mL 1 03/15/2023 Active Ipratropium-Albutero l 20-100 MCG/ACT Inhalation Aerosol Solution (Combivent Respimat)Indications :COPD, group B, by GOLD 2017 classification ([facility]) INHALE 1 PUFF BY MOUTH IN THE MORNING, 1 PUFF AT NOON, 1 PUFF IN THE EVENING, AND 1 PUFF BEFORE BEDTIME 12 g 1 04/16/2023 4 Active Esomeprazole Magnesium 40 MG Oral Capsule Delayed ReleaseIndications:G astroesophageal reflux disease without esophagitis Take 1 Capsule by mouth 2 times a day with morning and evening meals. 200 Capsule 1 06/14/2023 Active OneTouch Verio In Vitro Strip (Glucose Blood)Indications:Ty pe 2 diabetes mellitus with hemoglobin A1c goal of less than 8.0% ([facility]) USE TO TEST BLOOD SUGAR ONCE A DAY 100 Strip 3 08/09/2023 Active Lisinopril 5 MG Oral Tablet (Prinivil)Indication s:HTN, goal below 140/90 TAKE ONE TABLET BY MOUTH EVERY DAY 90 Tablet 3 08/12/2023 5 Active Atorvastatin Calcium 80 MG Oral Tablet (Lipitor)Indications :Dyslipidemia, goal LDL below 100 TAKE ONE TABLET BY MOUTH EVERYday 100 Tablet 3 10/18/2023 5 Active OneTouch Delica Plus [id number] :Type 2 diabetes mellitus with hemoglobin A1c goal of less than 8.0% ([facility]) USE TO TEST BLOOD SUGAR ONCE A DAY DIRECTED 100 Each 1 10/30/2023 Active Amitriptyline HCl 10 MG Oral Tablet (Elavil)Indications: Insomnia, unspecified type take one tablet by mouth at bedtime 100 Tablet 1 11/01/2023 Active Empagliflozin 10 MG Oral Tablet (Jardiance)Indicatio ns:Type 2 diabetes mellitus with hemoglobin A1c goal of less than 8.0% (HCC) Take 1 Tablet by mouth in the morning. 90 Tablet 3 11/02/2023 Active Atenolol 50 MG Oral Tablet (Tenormin)Indication s:Chronic coronary artery disease Take 1 Tablet by mouth in the morning. 12/06/2023 Active Apixaban 5 MG Oral Tablet (Eliquis)Indications :Cerebrovascular disease, arteriosclerotic, post-stroke,Paroxysm al atrial fibrillation (HCC) TAKE ONE TABLET BY MOUTH TWICE A DAY 200 Tablet 1 12/08/2023 Active Pregabalin 25 MG Oral Capsule (Lyrica)Indications: Type 2 diabetes, controlled, with neuropathy (HCC) TAKE ONE CAPSULE BY MOUTH EVERY MORNING AND TAKE ONE CAPSULE BEFORE BEDTIME 60 Capsule 2 12/25/2023 Active documented as of this encounter (statuses as of 01/20/2024) Active Problems Problem Noted Date Diagnosed Date Chronic kidney disease, stage 3a 12/13/2023 Overview: Per CKD protocol Mesenteric artery stenosis 11/18/2022 Anxiety state 08/21/2022 [...] as of this encounter (statuses as of 01/20/2024) Resolved Problems Problem Noted Date Diagnosed Date [...] as of this encounter (statuses as of 01/20/2024) Immunizations Name Administration Dates Next Due COVID-19 mRNA, LNP-s, No Pre serve, 2-Dose Series ([employer]) 03/25/2021,08/27/2020,08/06/2020 COVID-19, MRNA-LNP, 23-24, P F, 30 MCG/0.3 mL, 12 YRS AND ABOVE, IM ([employer]) 06/14/2023 Covid-19, Mrna, Lnp-s, Pf, B ivalent, 30 Mcg, IM, 12 yrs and above ([employer]) 04/28/2022 H1N1 2009 Influenza, IM 05/15/2009 Pneumococcal Conjugate Vacc, 13 Valent (Prevnar) 11/01/2014 Pneumococcal Polysaccharide PPV23 (Pneumovax) 06/30/2016,05/03/2003 Season Influenza, Quad, PF, Adjuvanted, 65+ Yrs, IM (FLUAD) 02/16/2020 Seasonal Influenza Virus Vac cine, Unspecified Formulation 01/20/2022,02/06/2021,02/16/2020,01/10,02/14/2018,01/31/2018,03/03/2017 ,02/28/2016,01/11/2014,01/31/2013,10/0 05/2011,01/27/2011,01/30/2010, 0,01/18/2009,02/29/2008,01/31/2007,05/2005,03/17/2005 Seasonal Influenza, Quadriva lent Hd (Fluzone Hd) 01/20/2022,02/06/2021 Seasonal Influenza, Quadriva lent, No Preserve, IM 01/31/2018,02/28/2016,02/05/2015 Seasonal Influenza, Trivalen t, (IIV3), with Preserv, (Fluzone) 03/03/2017,01/11/2014,01/31/2013,01/31,01/27/2011,01/30/2010,01/18/2009 ,02/29/2008,01/31/2007,01/31/2006 Seasonal Influenza, Trivalen t, Adjuvanted, 65+ YRS, PF, (Fluad) 01/10/2019 TDAP, Age 7 and older, IM [...] Sign Reading Time Taken Comments Blood Pressure 112/60 01/20/2024 2:26 PM EDT Pulse 60 01/20/2024 2:26 PM EDT Temperature - - Respiratory Rate - - Oxygen Saturation 97% 01/20/2024 2:26 PM EDT Inhaled Oxygen Concentration - - Weight 100.7 kg (222 lb) 01/20/2024 2:26 PM EDT Height - - Body Mass Index 38.11 08/27/2023 3:13 PM EDT documented in this encounter Progress Notes * Enrico De La Torre PA-C - 01/20/2024 2:37 PM EDT History of Present Illness: Pastora Yee is a 73 year old female here today who presents today for Cardiology evaluation. In July 2023 patient began to experience abnormal sensations in the neck, feeling hot and flushed on the top of the head. In October patient suffered 2 syncopal episodes, resultant ankle injury requiring hospitalization at [facility]. Concern for bradyarrhythmias noted. Atenolol dosing decreased to 50 mg daily. Telemetry monitoring following reduction in atenolol not notable for significant bradycardia though did demonstrate transient atrial fibrillation with a controlled ventricular response. Patient chronically prescribed Eliquis anticoagulation. Resting echocardiography in November 20, 2023 revealed preserved LV systolic function, EF 55 to 60%, with trace mitral regurgitation. Left atrium was mildlydilated. Mild mitral stenosis reported. No pericardial effusion observed. She has not had any syncopal episodes since hospitalization though continues to have the hot neck and flushed sensation up to4 times per day. No chest pain. Stable activity related dyspnea. No resting dyspnea. Supplemental ox ygen utilized as prescribed. No worsening lower extremity claudication, rest pain, ulcerations. No significant fluid retention. Patient remains tobacco free. Patient is a known vasculopath with severe bilateral internal carotid artery disease and wonders about perfusion, occasional hypotension observed. Past Medical History: ASCVD with a chronic total RCA occlusion, 30% LCX stenosis, and luminal irregularities of all othervessels by 01/2006 cath at [facility]. Ischemic cardiomyopathy with past LVEF 40%. Carotid disease s/p bilateral CEA's with bilateral recurrence Acute left MCA stroke in December 2018 Paroxysmal atrial fibrillation observed at [facility] in December 2018. PAD with L>R claudication with leg pain. Subclavian artery stenosis versus occlusion. Right renal artery stenosis. SMA stenosis. PSVT. COPD. Severe nocturnal hypoxemia treated with supplemental oxygen therapy QHS Secondary polycythemia. Type II diabetes mellitus with neuropathy. Pulmonary nodules. Hypertension. Hyperlipidemia. GERD. Fatty liver Psoriasis Plantar fasciitis. Insomnia. Vertigo. Osteoarthritis. Diverticulosis IBS Past Surgical History: Bilateral carotid endarterectomies. Cholecystectomy. Tubal ligation. T/A as a child. Family History: Father: Lung CA, alcoholic, at 54. Mother: Uterine CA, pacemaker. Brother: Throat CA. Brother: FL at 57. PGM: Lung cancer. Social History: See above. She started smoking at the age of 11. Quit in December 2018. No alcohol. No illegal drugs. Previously worked at [employer]. Complete Review of Systems. See above. Otherwise negative or noncontributory. Review of patient's allergies indicates: Allergen Reactions Amoxicillin Rash Levofloxacin Other (Please comment) Weakness, lightheadedness, nausea Niaspan [Niacin Er] Burned throat. Prednisone Blood pressure went up. Zyban [Bupropion Hcl] Current Outpatient Medications Medication Sig Dispense Refill Pregabalin 25 MG Oral Capsule (Lyrica) TAKE ONE CAPSULE BY MOUTH EVERY MORNING AND TAKE ONE CAPSULEBEFORE BEDTIME 60 Capsule 2 Apixaban 5 MG Oral Tablet (Eliquis) TAKE ONE TABLET BY MOUTH TWICE A DAY 200 Tablet 1 Atenolol 50 MG Oral Tablet (Tenormin) Take 1 Tablet by mouth in the morning. Empagliflozin 10 MG Oral Tablet (Jardiance) Take 1 Tablet by mouth in the morning. 90 Tablet 3 Amitriptyline HCl 10 MG Oral Tablet (Elavil) take one tablet by mouth at bedtime 100 Tablet 1 OneTouch Delica Plus [id number] USE TO TEST BLOOD SUGAR ONCE A DAY DIRECTED 100 Each 1 Atorvastatin Calcium 80 MG Oral Tablet (Lipitor) TAKE ONE TABLET BY MOUTH EVERYday 100 Tablet 3 Lisinopril 5 MG Oral Tablet (Prinivil) TAKE ONE TABLET BY MOUTH EVERY DAY 90 Tablet 3 OneTouch Verio In Vitro Strip (Glucose Blood) USE TO TEST BLOOD SUGAR ONCE A DAY 100 Strip 3 Esomeprazole Magnesium 40 MG Oral Capsule Delayed Release Take 1 Capsule by mouth 2 times a day with morning and evening meals. 200 Capsule 1 Ipratropium-Albuterol 20-100 MCG/ACT Inhalation Aerosol Solution (Combivent Respimat) INHALE 1 PUFFBY MOUTH IN THE MORNING, 1 PUFF AT NOON, 1 PUFF IN THE EVENING, AND 1 PUFF BEFORE BEDTIME 12 g 1 Ipratropium [place] 0.03 % Nasal Solution (Atrovent) ADMINISTER 2 SPRAYS INTO EACH NOSTRIL 4 TIMES A DAY NEEDED FOR RHINITIS. FOR RUNNY NOSE 90 mL 1 Isosorbide Mononitrate ER 30 MG Oral Tablet Extended Release 24 Hour (Imdur) TAKE ONE TABLET BY MOUTH EVERY MORNING 90 Tablet 3 Vitamin D 125 MCG (5000 UT) Oral Capsule Take by mouth. Fluocinolone Acetonide 0.01 % Otic Oil Administer into ears once a week . On Saturdays Systane Preservative Free 0.4-0.3 % Ophthalmic Solution (Polyethyl Glyc-Propyl Glyc PF) Instill into eye 1 Drop daily as needed for Other. OneTouch Verio w/Device Kit Use once a day Dx: E11.9 1 Kit 0 fexofenadine (ARGELIA) 180 MG Tablet Take 1 Tab by mouth daily. For allergies. (Patient taking differently: Take 1 Tablet by mouth daily as needed for Allergies.) 90 Tab 3 Pomegranate 250 MG CAPS Take by mouth . Taking 400 mg daily Wheat Dextrin (BENEFIBER) powder Take by mouth . 1 teaspoon daily in beverage Multiple Vitamins-Minerals (MULTIVITAMIN WOMEN) TABS Take by [...] Take by mouth 1 Capsule daily . No current facility-administered medications for this visit. OBJECTIVE/PHYSICAL EXAMINATION: BP 112/60 | Pulse 60 | Wt 100.7 kg (222 lb) | SpO2 97% | BMI 38.11 kg/m | BSA 2.13 m | Blood pressure my evaluation was 106/60 via the right arm General: NAD. HENT: Normocephalic. Atraumatic. Eyes: PER. Conjunctiva pink, sclera clear. Neck: Bilateral carotid endarterectomy scars. Harsh bilateral carotid bruits. No JVD. Heart: RRR, 60 bpm. Grade III/ systolic murmur. No rub or gallop. Lungs: Diminished throughout but clear. Abdomen: +BS. Soft. Nontender. No masses or organomegaly. Extremities: No clubbing, cyanosis, or edema. Pulses: radial=1/4 on the right and nonpalpable on the left. Posterior tibial and dorsalis pedis pulses are 0/4. Neuro: Expressive aphasia less prominent Data: March 24, 2023 TTE Interpretation Summary (as per Dr. Ledezma): Normal LV chamber size with mildconcentric LVH. Normal LV systolic function without regional wall motion abnormality. Calculated LVejection Fraction = 55% (bi-plane method of discs). Grade II diastolic dysfunction. Moderate aorticvalve sclerosis without stenosis. There is moderate mitral annular calcification. The mitral valve chordae are thickened and diffusely calcified. The mitral valve leaflets are mildly calcified. Mitral stenosis is absent. Significant mitral regurgitation is absent. Mild left atrial enlargement. Focal calcifications of the ascending aorta. November 27, 2023 TTE ([facility]): LVEF 55 to 60%. Trace mitral regurgitation. Normal IVC. Normal RV size and function. Mildly dilated left atrium. Trileaflet aortic valve without stenosis. Mild mitral stenosis. No pericardial effusion. January 20, 2024 EKG: Sinus bradycardia at 59 bpm. Right bundle branch block. QTc 465 ms. ASSESSMENT AND RECOMMENDATIONS/PLAN: Episodes of syncope quiescent since hospitalization in November 20, 2023, ongoing episodes of feeling hot and flushed, near syncope occurring multiple times per day. EKG today with chronic right bundle branch block unchanged compared to prior tracings. Options of management discussed. Noting intermittent hyperkalemia and observed blood pressure as well as symptoms, recommend holding lisinopril 5 mg/day for now. Seven day Zio monitor applied today to evaluate for significant arrhythmias. Possible need for permanent pacemaker implantation discussed. Recommend follow-up with Vascular Surgery. ASCVD. Abnormal stress test in 01/2016. Note is made of her coronary anatomy on prior catheterization, ischemic burden on Lexiscan, and prior echocardiographic results demonstrating atherosclerotic plaque in the ascending aorta. Stable symptoms. Continue medical management. Paroxysmal atrial fibrillation. [id number] Score 7 points. Continue beta- lacy and anticoagulation (Eliquis). Significant carotid disease, subclavian stenosis, SMA stenosis, lower extremity peripheral vasculardisease. December 2018 acute ischemic stroke. Follow-up with [facility] History of tobacco abuse, COPD, chronic bronchitis. Dyslipidemia. LDL goal less than 70 mg/dL. LDL cholesterol 54 mg/dL on November 15, 2023. Continue high-intensity statin therapy with atorvastatin 80 mg/day. History of abnormal LFTs, hepatic steatosis. Cardiac follow-up in 6 months or as needed. ER with emergencies. Enrico De La Torre PA-C Department of Cardiology I spent a total of 40-54 minutes (exact time 45 mins) on the date of service in preparation, delivery, and documentation of the care provided to Pastora Yee excluding any time spent in the performance of separately billed services. This visit involved medical care services related to at least one serious condition or complex condition requiring ongoing care. This chart was completed in part utilizing [employer] Voice Recognition Software. Grammatical errors, random word insertions, prounoun errors, and incomplete sentences are an occasional consequence of this system due to software limitations, ambient noise, and hardware issues. Any formal questions or concerns about the content, text, or information contained within the body of this dictation should be directly addressed to the provider for clarification. documented in this encounter Procedure Notes * Mat Bustamante MD - 01/20/2024 2:35 PM EDTAssociated Order(s): EKG REASON FOR STUDY: routine;routine CONCLUSIONS: Sinus bradycardia Right bundle branch block Abnormal ECG When compared with ECG of 24-Feb-2022 15:07, No significant change was found Ventricular Rate: 59 Atrial Rate: 59 MT Interval: 192 QRS Duration: 132 QT/QTc: 470/465 ms P-R-T [facility]: 60 : 38 : 0 degrees documented in this encounter Nursing Notes * Frances Campos CMA - 01/20/2024 2:25 PM EDT Examination Room: 2 Name: Pastora Yee Date of : (1950) Reason for Visit: H/D Interim Hospitalization(s): 11/25-11/28 [facility] Problems/Concerns: denied Chest Pain/SOB: denied chest pain, but does have SOB. My [facility] is a way you can talk to your provider online through e-mail. Would you like to sign up? I can activate it for you? ALREADY ACTIVE Patient was instructed to not get up on the exam table until directed and assisted by their provider; patient is to remain seated in the chair/ wheelchair/ exam table for fall prevention and safety reasons. Patient is aware to have assistance to step down off exam table with personnel. Patient voiced full comprehension of instructions. documented in this encounter Plan of Treatment Upcoming Encounters Date Type Department Care Team (Late st Contact Info) Description 01/31/2024 1:00 PM EDT Office Visit Nephrology [address] [place] [address] Selene Veronica MD [address] [place] [address] 03/01/2024 2:30 PM EDT Office Visit Vascular Surgery, [facility] [address] [facility] [place] [address] Femi [place] MD [address] [place] [address] 05/10/2024 10:30 AM EST Office Visit Cardiology, [facility] [address] [facility] [place] [address] Enrico De La Torre PA-C [address] [facility] [place] [address] 06/20/2024 1:40 PM EST Office Visit Family Medicine [address] [place] [phone] Daysi Pham MD [address] [place] [address] [place] [address] 08/29/2024 3:00 PM EDT Nurse Only Ancillary Margarita Santiago[address] [place] [address] Zabrina Nurse [address] [place] [address] Scheduled Orders Name Type Priority Associated Diagnoses Orde r Schedule EXTERNAL EKG 2 TO 7 DAYS Holter Routine Paroxysmal atrial fibrillation (HCC) HTN, goal below 140/90 Chronic coronary artery disease Dyslipidemia, goal LDL below 100 Expected: 01/21/2024 (Approximate), Expires: 01/19/2025 Health Maintenance Due Date Last Done Comments Alpha-1 Antitrypsin 1967 Sigmoidoscopy 1994 Fecal Occult Blood Test 11/06/2006 11/06/2005 DTap/Tdap Vaccines (2 - Td or Tdap) 10/25/2017 10/26/2007 Colonoscopy 01/24/2019 01/24/2018, 09/01, 08/11/2007, Additional history exists Colorectal Cancer Screening 01/24/2019 Zoster Vaccines (3 of 3) 03/10/2019 01/13/2019, 03/03 CKD PHOS USE SMARTSET 23364 12/28/201912/02, 12/25/2018, 12/24/2018, Additional history exists Cologuard 11/04/2020 11/04/2017 Mammogram 11/19/2023 11/18/2022, 07/0 08/2022, 11/04/2022, Additional history exists COVID-19 Vaccine ( season) 2024 06/14/2023, 04/28/2022, 03/25/2021, Additional history exists Influenza Vaccine (FLU shot) (#1) 2024 01/20/2022, 01/20/2022, 02/06/2021, Additional history exists Diabetic Eye Exam 02/23/2024 02/22/2023, , 07/02/2021, Additional history exists CKD HGB USE SMARTSET 27109 05/12/202405/12, 05/12/2023, 09/24/2021, Additional history exists GFR 05/17/2024 11/15/2023, 05/03, 08/11/2022, Additional history exists HbA1c 05/17/2024 11/15/2023, 05/03, 08/11/2022, Additional history exists Adult Wellness Visit 08/26/2024 08/27/2023, 08/25/2022, 08/25/2021, Additional history exists Depression Screening 08/26/2024 08/27/2023, 08/27/19 24 Diabetic Foot Exam 08/26/2024 08/27/2023, 0 08/25/2022, 08/25/2021 Albumin/Creatinine Ratio 11/14/2024 024, 03/02/2023, 03/09/2022, Additional history exists O2 ASSESSMENT COMPLETED IN PAST YEAR FOR COPD 12/05/2024 12/06/2023 DXA Scan 11/21/2025 11/21/2018, 11/01, 11/20/2010, Additional history exists Postponed from 11/21/2021 (Other) Pneumococcal Vaccine: 65+ Years Completed 06/30/2016, 11/01/2014, 05/03/2003 RETIRED - COLONOSCOPY-ANNUAL AGES 18-100 Discontinued 01/24/2018, 09/28/2007, 08/11/2007, Additional history exists HPV (Gardasil) Vaccine Aged [...] Procedure Name Priority Date/Time Associated Diagnosis Comments MT ECG ROUTINE ECG W/LEAST 12 LDS W/I&R Routine 01/20/2024 2:35 PM EDT Paroxysmal atrial fibrillation (HCC) HTN, goal below 140/90 Chronic coronary artery disease Dyslipidemia, goal LDL below 100 documented in this encounter Results * EKG (01/20/2024 2:35 PM EDT) 01/20/2024 2:35 PM EDT Narrative Procedure Note Mat Bustamante MD - 01/20/2024 2:35 PM EDT REASON FOR STUDY: routine;routine CONCLUSIONS: Sinus bradycardia Right bundle branch block Abnormal ECG When compared with ECG of 24-Feb-2022 15:07, No significant change was found Ventricular Rate: 59 Atrial Rate: 59 MT Interval: 192 QRS Duration: 132 QT/QTc: 470/465 ms P-R-T [facility]: 60 : 38 : 0 degrees Enrico De La Torre PA-C EKG [facility] documented in this encounter Visit Diagnoses Diagnosis Hospital discharge follow-up- Primary Other follow-up examination Paroxysmal atrial fibrillation (HCC) Atrial fibrillation HTN, goal below 140/90 Unspecified essential hypertension Chronic coronary artery disease Coronary atherosclerosis of unspecified type of vessel, st. croix or graft Dyslipidemia, goal LDL below 100 Other and unspecified hyperlipidemia Near syncope Syncope and collapse documented in this encounter Care Teams Substation Operator Automatic Relationship Specialty Start Date End Date Daysi Pham MD [address] [place] [address] [place] [phone] PCP - General Family Medicine 07/01/17 documented as of this encounter"
--- OUTSIDE RECORDS SUMMARY | 2024-02-02 11:43 | External Medical Summary ---
Author Name Unknown Address Unknown Organization [id number]:[facility] [address] [place] [address] Laboratory Report Ordering Provider Test Date Status RAPHAEL MOON 01/31/2024 14:34:53 Final Observation Date Value Abnormality Reference (Units ) Status Magnesium 01/31/2024 14:34:53 1.8 1.5-2.6 (m g/dL) Final Performing Location [facility] [address] [address]
--- OUTSIDE RECORDS SUMMARY | 2024-02-02 11:43 | External Medical Summary | Summary of Care ---
Author Name Unknown Organization [facility] Address [address] [place] [address] Phone [phone] Care Team Providers Care Supervisor Assembly Stock Name Role Phone Daysi Pham MD Primary Care Provide r Encounter Details Date Type Department Care Team (Latest Contact Info) Description 01/26/2024 Medication Management Carey Montero CMR [address], [place] [id number] Stacy Mckinney, [facility] [address] [place] [address] Referred for medication therapy management* Allergies Active Allergy Reactions Criticality Noted Date Comments Amoxicillin Rash 11/19/2011 Levofloxacin Other (Please comment) 11/13/2013 Weakness, lightheadedness, nausea Niacin Er 01/30/2010 Burned throat. Prednisone 09/03/2012 Blood pressure went up. Bupropion Hcl 01/30/2010 documented as of this encounter (statuses as of 01/26/2024) Medications Medication Sig Dispensed Refills Start Date End Date Status VITAMIN B COMPLEX PO CAPSIndications:supp lementation Take by mouth 1 Capsule daily . Active CO Q 10 100 MG PO CAPSIndications:leg pain Take by mouth 100 mg daily . Active ASPIRIN 81 MG PO TABSIndications:[employer] health Take 1 Tablet by mouth in the morning. Active oxygen GAS Use 2 L/min(Oxygen) as directed at bedtime. Active Respiratory Therapy Supplies (NEBULIZER) DEVIIndications:COPD , moderate (HCC) Use as directed. Duonebs, 3 ml's every 6 hours as needed 1 Device 05/21/2016 Active Multiple Vitamins-Minerals (MULTIVITAMIN WOMEN) TABSIndications:gene Advebs Take by mouth 1 Tablet daily . Active nitroglycerin (NITROSTAT) 0.4 MG SUBLIndications:Tool Adjuster lev coronary artery disease Place 1 Tab under the tongue as needed for Pain, Chest. May repeat 3 times. If chest pain continues, call 911. 98 Tab 1 01/31/2019 Active Wheat Dextrin (BENEFIBER) powderIndications:Sambazon Take by mouth . 1 teaspoon daily [...] less than 8.0% ([facility]) Use once a day Dx: [...] 90 Tablet 3 02/26/2023 4 Active Ipratropium [place] 0.03 % Nasal Solution (Atrovent)Indication s:Rhinorrhea ADMINISTER [...] less than 8.0% ([facility]) USE TO TEST BLOOD SUGAR [...] 3 10/18/2023 5 Active OneTouch Delica Plus [id number] :Type 2 diabetes mellitus with hemoglobin A1c goal of less than 8.0% ([facility]) USE TO TEST BLOOD SUGAR ONCE A DAY DIRECTED 100 Each 1 10/30/2023 Active Amitriptyline HCl 10 MG Oral Tablet (Elavil)Indications: Insomnia, unspecified type take one tablet by mouth at bedtime 100 Tablet 1 11/01/2023 Active Empagliflozin 10 MG Oral Tablet (Jardiance)Indicatio ns:Type 2 diabetes mellitus with hemoglobin A1c goal of less than 8.0% ([facility]) Take 1 Tablet by mouth [...] as of this encounter (statuses as of 01/26/2024) Active Problems Problem Noted Date Diagnosed Date [...] as of this encounter (statuses as of 01/26/2024) Resolved Problems Problem Noted Date Diagnosed Date [...] as of this encounter (statuses as of 01/26/2024) Immunizations Name Administration Dates Next Due COVID-19 mRNA, LNP-s, No Pre serve, 2-Dose Series ([employer]) 03/25/2021,08/27/2020,08/06/2020 COVID-19, MRNA-LNP, 23-24, P F, 30 MCG/0.3 mL, 12 YRS AND ABOVE, IM ([employer]) 06/14/2023 Covid-19, Mrna, Lnp-s, Pf, B ivalent, 30 Mcg, IM, 12 yrs and above ([employer]) 04/28/2022 H1N1 2009 Influenza, IM 05/15/2009 Pneumococcal Conjugate Vacc, 13 Valent (Prevnar) 11/01/2014 Pneumococcal Polysaccharide PPV23 (Pneumovax) 06/30/2016,05/03/2003 Season Influenza, Quad, PF, Adjuvanted, 65+ Yrs, IM (FLUAD) 02/16/2020 Seasonal Influenza Virus Vac cine, Unspecified Formulation 01/20/2022,02/06/2021,02/16/2020,01/10,02/14/2018,01/31/2018,03/03/2017 ,02/28/2016,01/11/2014,01/31/2013,1005/2011,01/27/2011,01/30/2010, 0,01/18/2009,02/29/2008,01/31/2007,05/2005,03/17/2005 Seasonal Influenza, Quadriva lent Hd (Fluzone [...] the money to buy more. Never true 08/27/19 24 Within the past 12 months, t he food you bought just didn't last and you didn't have money to get more. Never true 08/27/2023 Childcare Answer Date Recorded Do you feel overwhelmed with taking care of a child, family member or friend? No 08/27/2023 Does your family need help f inding childcare? (Household - for ages 0-17 years) Not on file 08/27/2023 Clothing Answer Date Recorded Have you been unable to get clothing when it was really needed? No 08/27/2023 Is your family able to get c lothes or diapers when needed? (Household - for ages 0-17 years) Not on file 08/27/2023 Personal Safety Answer Date Recorded Do you feel unsafe or have concerns for your saf ety? No 08/27/2023 Do you have concerns for you r family's safety? (Household - for ages 0-17 years) Not on file 08/27/2023 Utilities Answer Date Recorded Do you have trouble paying y our heating, water, or electric bill? No 08/27/2023 Is your family able to pay t he heat, water, or electric bill? (Household - for ages 0-17 years) Not on file 08/27/2023 Does your family have access to good internet? (Household - for ages 0-17 years) Not on file 08/27/2023 Employment Status Answer Date Recorded Are you unemployed or without regular income? No 08/27/2023 Does the household have a re gular source of income? (Household - for ages 0-17 years) Not on file 08/27/2023 Social Connections Answer Date Recorded How often do you feel lonely or isolated from th ose around you? Never 08/27/2023 Financial Resource Strain Answer Date R ecorded Do you have any trouble payi ng for your medications, or do you think you might in the future? No 08/27/2023 Does your family have troubl e paying for medicine? (Household - for ages 0-17 years) Not on file 08/27/2023 Transportation Needs Answer Date Record ed READ ONLY Do you have troubl e getting a ride to medical visits or work? Never True 08/27/2023 Does your family have a hard time getting a ride to doctors visits? (Household - for ages 0-17 years) Not on file 08/27/2023 Has lack of transportation k ept you from medical appointments, meetings, work, or from getting things needed for daily living? Check all that apply. (Adult - for ages 18 years and over) Not on file 08/27/2023 Do you (or your family) have trouble finding or paying for a ride (transportation)? (Household - for ages 0-17 years) Not on file 08/27/2023 Housing Stability Answer Date Recorded Do you currently live in a s helter or have no steady place to sleep at night? No 08/27/2023 READ ONLY Do you think you a re at risk of becoming homeless? No 08/27/2023 Does your family worry about paying for your home or becoming homeless? (Household - for ages 0-17 years) Not on file 0 08/27/2023 Are you homeless or worried that you might be in the future? (Adult - for ages 18 years and over) Not on file Are you (or your family) adina eless or worried that you might be in the future? (Household - for ages 0-17 years) Not on file Food Insecurity Answer Date Recorded Do you need food for this week? No 08/27/2023 Are you able to get enough f ood for your family? (Household - for ages 0-17 years) Not on file 08/27/2023 Does your family need food t his week? (Household - for ages 0-17 years) Not on file 08/27/2023 Do you always have enough fo od for your family? 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 TMR Interventions TMR Patient Education - Safe Medication Use (Opioid Therapy): OXYCODONE TAB 5MG Incomplete Encounter MTPs No medication therapy recommendations to display Complete Encounter MTPs Referred for medication therapy management Rationale: Patient Education - Needs Education - Safety Recommendation: Provide Education Status: No Longer Relevant Note: TMR for safe use of opioid therapy. Patient not currently taking an opioid. Assessment & Plan Indication, effectiveness, safety and convenience of her medications were reviewed today. The patient's medical conditions were assessed, evaluated, and deemed meeting goals of drug therapy, with thefollowing exceptions. JESSICA Lewis 01/26/2024, 8:30 PM documented in this encounter Plan of Treatment Upcoming Encounters Date Type Department Care Team (Late st Contact Info) Description 01/31/2024 1:00 PM EDT Office Visit Nephrology [address] [place] [address] Selene Veronica MD [address] [place] [address] [place] [address] 02/15/2024 2:30 PM EDT Imaging Radiology [address] [place] [address] 03/01/2024 2:30 PM EDT Office Visit Vascular Surgery, [facility] [address] [place] [address] Femi Urbano MD [address] [place] [address] 06/20/2024 2:00 PM EST Office Visit Cardiology [address] [place] [address] Enrico De La Torre PANadineC [address] [place] [address] 06/26/2024 1:40 PM EST Office Visit Family Medicine [address] [place] [phone] Christin Welch PA-C [address] [place] [address] [place] [address] 08/29/2024 3:00 PM EDT Nurse Only Ancillary [address] [place] [address] [place], Nurse Annual [address] [place] [address] Health Maintenance Due Date Last Done Comments Alpha-1 Antitrypsin 1967 Sigmoidoscopy 1994 Fecal Occult Blood Test 11/06/2006 11/06/2005 DTap/Tdap Vaccines (2 - Td or Tdap) 10/25/2017 10/26/2007 Colonoscopy 01/24/2019 01/24/2018, 09/01, 08/11/2007, Additional history exists Colorectal Cancer Screening 01/24/2019 Zoster Vaccines (3 of 3) 03/10/2019 01/13/2019, 03/03 CKD PHOS USE SMARTSET 84140 12/28/201912/02, 12/25/2018, 12/24/2018, Additional history exists Cologuard 11/04/2020 11/04/2017 Mammogram 11/19/2023 11/18/2022, 07/0 08/2022, 11/04/2022, Additional history exists COVID-19 Vaccine ( season) 2024 06/14/2023, 04/28/2022, 03/25/2021, Additional history exists Influenza Vaccine (FLU shot) (#1) 2024 01/20/2022, 01/20/2022, 02/06/2021, Additional history exists Diabetic Eye Exam 02/23/2024 02/22/2023, , 07/02/2021, Additional history exists CKD HGB USE SMARTSET 21002 05/12/202405/12, 05/12/2023, 09/24/2021, Additional history exists GFR 05/17/2024 11/15/2023, 05/03, 08/11/2022, Additional history exists HbA1c 05/17/2024 11/15/2023, 05/03, 08/11/2022, Additional history exists Adult Wellness Visit 08/26/2024 08/27/2023, 08/25/2022, 08/25/2021, Additional history exists Depression Screening 08/26/2024 08/27/2023, 08/27/19 24 Diabetic Foot Exam 08/26/2024 08/27/2023, 0 08/25/2022, 08/25/2021 Albumin/Creatinine Ratio 11/14/2024 024, 03/02/2023, 03/09/2022, Additional history exists O2 ASSESSMENT COMPLETED IN PAST YEAR FOR COPD 01/19/2025 01/20/2024 DXA Scan 11/21/2025 11/21/2018, 11/01, 11/20/2010, Additional [...] this encounter Visit Diagnoses Diagnosis Referred for medication therapy management- Primary Encounter for long-term (current) use of other medications Screening mammogram for breast cancer documented in this encounter Care Teams Supervisor Assembly Stock Relationship Specialty Start Date End Date Daysi Pham MD [address] [place] [address] [place] [address] PCP - General Family Medicine 07/01/17 documented as of this encounter
--- OUTSIDE RECORDS SUMMARY | 2024-02-02 11:43 | External Medical Summary | Summary of Care ---
Author Name Unknown Organization [facility] Address [address] [place] [address] Phone [phone] Care Team Providers Care Staffing Mgr Name Role Phone Daysi Pham MD Primary Care Provide r Reason for Visit * Reason Comments Outpatient Testing Encounter Details Date Type Department Care Team (Late st Contact Info) Description 01/31/2024 2:30 PM EDT Laboratory Laboratory [address] [place] [phone] [place] [address] Arrived Allergies Active Allergy Reactions Criticality Noted Date Comments Amoxicillin Rash 11/19/2011 Levofloxacin Other (Please comment) 11/13/2013 Weakness, lightheadedness, nausea Niacin Er 01/30/2010 Burned throat. Prednisone 09/03/2012 Blood pressure went up. Bupropion Hcl 01/30/2010 documented as of this encounter (statuses as of 01/31/2024) Medications Medication Sig Dispensed Refills Start Date [...] Device 05/21/2016 Active Multiple Vitamins-Minerals (MULTIVITAMIN WOMEN) TABSIndications:wuaki.tv Take by mouth 1 Tablet daily . Active nitroglycerin (NITROSTAT) 0.4 MG SUBLIndications:Stylist Assistant lev coronary artery disease Place 1 Tab under the tongue as needed for Pain, Chest. May repeat 3 times. If chest pain continues, call 911. 25 Tab 1 01/31/2019 Active Wheat Dextrin (BENEFIBER) powderIndications:Benaissance Take by mouth . 1 teaspoon daily [...] goal of less than 8.0% ([facility]) Use once a day Dx: E11.9 [...] 90 Tablet 3 02/26/2023 4 Active Ipratropium [place] 0.03 % Nasal Solution (Atrovent)Indication s:Rhinorrhea ADMINISTER 2 SPRAYS INTO EACH NOSTRIL 4 TIMES A DAY NEEDED FOR RHINITIS. FOR RUNNY NOSE 90 mL 1 03/15/2023 Active Ipratropium-Albutero l 20-100 MCG/ACT Inhalation Aerosol Solution (Combivent Respimat)Indications :COPD, group B, by GOLD 2017 classification ([facility]) INHALE 1 PUFF BY MOUTH IN [...] goal of less than 8.0% ([facility]) USE TO TEST BLOOD SUGAR ONCE A DAY 100 Strip 3 08/09/2023 Active Lisinopril 5 MG Oral Tablet (Prinivil)Indication s:HTN, goal below 140/90 TAKE ONE TABLET BY MOUTH EVERY DAY 90 Tablet 3 08/12/2023 5 Active Additional Information Patient not taking.Reported on 01/31/2024 Atorvastatin Calcium 80 MG Oral Tablet (Lipitor)Indications :Dyslipidemia, goal LDL below 100 TAKE ONE TABLET BY MOUTH EVERYday 100 Tablet 3 10/18/2023 5 Active OneTouch Delica Plus [id number] :Type 2 diabetes mellitus with hemoglobin A1c goal of less than 8.0% ([facility]) USE TO TEST BLOOD SUGAR ONCE A DAY DIRECTED 100 Each 1 10/30/2023 5 Active Amitriptyline HCl 10 MG Oral Tablet (Elavil)Indications: Insomnia, unspecified type take one tablet by mouth at bedtime 100 Tablet 1 11/01/2023 Active Empagliflozin 10 MG Oral Tablet (Jardiance)Indicatio ns:Type 2 diabetes mellitus with hemoglobin A1c goal of less than 8.0% ([facility]) Take 1 Tablet by mouth in [...] as of this encounter (statuses as of 01/31/2024) Active Problems Problem Noted Date Diagnosed Date [...] as of this encounter (statuses as of 01/31/2024) Resolved Problems Problem Noted Date Diagnosed Date [...] as of this encounter (statuses as of 01/31/2024) Immunizations Name Administration Dates Next Due COVID-19 mRNA, LNP-s, No Pre serve, 2-Dose Series ([employer]) 03/25/2021,08/27/2020,08/06/2020 COVID-19, MRNA-LNP, 23-24, P F, 30 MCG/0.3 mL, 12 YRS AND ABOVE, IM ([employer]) 06/14/2023 Covid-19, Mrna, Lnp-s, Pf, B ivalent, [...] Care Team (Late st Contact Info) Description 02/15/2024 2:30 PM EDT Imaging Radiology [address] [place] [address] 03/01/2024 2:30 PM EDT Office Visit Vascular Surgery, [facility] [address] [place] [address] Femi Urbano MD [address] [place], [place] [phone] 06/09/2024 3:30 PM EST Office Visit Nephrology [address] [place] [address] Lissa Owens PA-C [address] [place] [address] 06/20/2024 2:00 PM EST Office Visit Cardiology [address] [place] [address] Enirco De La Torre PA-C [address] [place] [address] 06/26/2024 1:40 PM EST Office Visit Family Medicine [address] [place] [phone] Christin Welch PA-C [address] [place] [address] [place] [phone] 08/29/2024 3:00 PM EDT Nurse Only Ancillary [place] [place] [address] [place], Nurse Annual [address] [place] [address] Health Maintenance Due Date Last Done Comments Alpha-1 Antitrypsin 1967 Sigmoidoscopy 1994 Fecal Occult Blood Test 11/06/2006 11/06/2005 DTap/Tdap Vaccines (2 - Td or Tdap) 10/25/2017 10/26/2007 Colonoscopy 01/24/2019 01/24/2018, 09/01, 08/11/2007, Additional history exists Colorectal Cancer Screening 01/24/2019 Zoster Vaccines (3 of 3) 03/10/2019 01/13/2019, 03/03 CKD PHOS USE SMARTSET 28804 12/28/201912/02, 12/25/2018, 12/24/2018, Additional history exists Cologuard 11/04/2020 11/04/2017 Mammogram 11/19/2023 11/18/2022, 08/2022, 11/04/2022, Additional history exists COVID-19 Vaccine ( season) 2024 06/14/2023, 04/28/2022, 03/25/2021, Additional history exists Influenza Vaccine (FLU shot) (#1) 2024 01/20/2022, 01/20/2022, 02/06/2021, Additional history exists Diabetic Eye Exam 02/23/2024 02/22/2023, , 07/02/2021, Additional history exists CKD HGB USE SMARTSET 69834 05/12/202405/12, 05/12/2023, 09/24/2021, Additional history exists GFR 05/17/2024 11/15/2023, 05/03, 08/11/2022, Additional history exists HbA1c 05/17/2024 11/15/2023, 05/03, 08/11/2022, Additional history exists Adult Wellness Visit 08/26/2024 08/27/2023, 08/25/2022, 08/25/2021, Additional history exists Depression Screening 08/26/2024 08/27/2023, 08/27/19 Diabetic Foot Exam 08/26/2024 08/27/2023, 0 08/25/2022, 08/25/2021 Albumin/Creatinine Ratio 11/14/2024 024, 03/02/2023, 03/09/2022, Additional history exists O2 ASSESSMENT COMPLETED IN PAST YEAR FOR COPD 01/30/2025 01/31/2024 DXA Scan 11/21/2025 11/21/2018, 11/01, 11/20/2010, Additional [...] filedocumented as of this encounter Care Teams Staffing Mgr Relationship Specialty Start Date End Date Daysi Pham MD [address] [place] [address] [place] [address] PCP - General Family Medicine 07/01/17 documented as of this encounter
--- OUTSIDE RECORDS SUMMARY | 2024-02-02 11:43 | External Medical Summary ---
Author Name Unknown Address Unknown Organization K01:[facility] [place] - [address] [facility] [address] Laboratory Report Ordering Provider Test Date Status RAPHAEL MOON 01/31/2024 14:34:53 Final Observation Date Value Abnormality Reference (Units ) Status BUN 01/31/2024 14:34:53 17 6-20 (mg/dL) Final Creatinine 01/31/2024 14:34:53 1.1 Above high normal 0.5-1.0 (mg/dL) Final Glomerular filtration rate/1.73 sq M.predicted [Volume Rate/Area] in Serum, Plasma or Blood by Creatinine-based formula (CKD-EPI) 01/31/2024 14:34:53 54 Below low normal >=60 (mL/min) Final eGFR is calculated based on the CKD-EPI 2020 equation. Sodium 01/31/2024 14:34:53 141 135-146 (m mol/L) Final Potassium 01/31/2024 14:34:53 4.0 3.5-5.1 (m mol/L) Final Cl 01/31/2024 14:34:53 100 98-107 (mm ol/L) Final CO2 01/31/2024 14:34:53 32 22-32 (mmo l/L) Final Anion gap 01/31/2024 14:34:53 9 7-15 (mmol /L) Final Glucose 01/31/2024 14:34:53 166 Above high normal 70 -120 (mg/dL) Final Calcium 01/31/2024 14:34:53 9.8 8.4-10.2 ( mg/dL) Final Performing Location [facility] [place] - [address] [facility] [address]
--- OUTSIDE RECORDS SUMMARY | 2024-02-02 11:43 | External Medical Summary | Summary of Care ---
Author Name Unknown Organization [facility] Address [address] [place] [address] Phone [phone] Care Team Providers Care Electrocardiograph Operator Name Role Phone Daysi Pham MD Primary Care Provide r Encounter Details Date Type Department Care Team (Late st Contact Info) Description 01/20/2024 Population Health External Data Unspecified Department Allergies Active Allergy Reactions Criticality Noted Date Comments Amoxicillin Rash 11/19/2011 Levofloxacin Other (Please comment) 11/13/2013 Weakness, lightheadedness, nausea Niacin Er 01/30/2010 Burned throat. Prednisone 09/03/2012 Blood pressure went up. Bupropion Hcl 01/30/2010 documented as of this encounter (statuses as of 01/24/2024) Medications Medication Sig Dispensed Refills Start Date [...] daily . Active nitroglycerin (NITROSTAT) 0.4 MG SUBLIndications:Air Liaison And Special Staff lev coronary artery disease Place 1 Tab under the tongue as needed for Pain, Chest. May repeat 3 times. If chest pain continues, call 911. 25 Tab 1 01/31/2019 Active Wheat Dextrin (BENEFIBER) powderIndications:Woldme Take by mouth . 1 teaspoon daily [...] instructions reported), Indications: allergies, Reported on 08/21/2022 Silent EdgeTouch Verio w/Device KitIndications:Type 2 diabetes mellitus with [...] 90 Tablet 3 02/26/2023 4 Active Ipratropium [place] 0.03 % Nasal Solution (Atrovent)Indication s:Rhinorrhea ADMINISTER [...] MOUTH EVERY DAY 90 Tablet 3 08/12/2023 Active Atorvastatin Calcium 80 MG Oral Tablet (Lipitor)Indications :Dyslipidemia, goal LDL below 100 TAKE ONE TABLET BY MOUTH EVERYday 100 Tablet 3 10/18/2023 5 Active OneTouch Delica Plus [id number] :Type 2 diabetes mellitus with hemoglobin A1c [...] as of this encounter (statuses as of 01/24/2024) Active Problems Problem Noted Date Diagnosed Date [...] as of this encounter (statuses as of 01/24/2024) Resolved Problems Problem Noted Date Diagnosed Date [...] as of this encounter (statuses as of 01/24/2024) Immunizations Name Administration Dates Next Due COVID-19 mRNA, LNP-s, No Pre serve, 2-Dose Series ([employer]) 03/25/2021,08/27/2020,08/06/2020 COVID-19, MRNA-LNP, 23-24, P F, 30 [...] 1:00 PM EDT Office Visit Nephrology [address] [place] [address] Selene Veronica MD [address] [place] [address] 03/01/2024 2:30 PM EDT Office Visit Vascular Surgery, [facility] [address] [place] [address] [facility] [address] [facility] [address] 05/10/2024 10:30 AM EST Office Visit Cardiology, [facility] [address] [place] [address] Enrico De La Torre PANadineC [address] [facility] [place] [address] 06/20/2024 1:40 PM EST Office Visit Family Medicine [address] [place] [phone] Daysi Pham MD [address] [place] [address] [place] [address] 08/29/2024 3:00 PM EDT Nurse Only Ancillary [address] [place] [address] [place], Nurse Annual Wellness [address] [place] [address] [place] [address] Health Maintenance Due Date Last Done Comments Alpha-1 Antitrypsin 1967 Sigmoidoscopy 1994 Fecal Occult Blood Test 11/06/2006 11/06/2005 DTap/Tdap Vaccines (2 - Td or Tdap) 10/25/2017 10/26/2007 Colonoscopy 01/24/2019 01/24/2018, 09/01, 08/11/2007, Additional history exists Colorectal Cancer Screening 01/24/2019 Zoster Vaccines (3 of 3) 03/10/2019 01/13/2019, 03/03 CKD PHOS USE SMARTSET 16608 12/28/201912/02, 12/25/2018, 12/24/2018, Additional history exists Cologuard 11/04/2020 11/04/2017 Mammogram 11/19/2023 11/18/2022, 07/0 08/2022, 11/04/2022, Additional history exists COVID-19 Vaccine ( season) 2024 06/14/2023, 04/28/2022, 03/25/2021, Additional history exists Influenza Vaccine (FLU shot) (#1) 2024 01/20/2022, 01/20/2022, 02/06/2021, Additional history exists Diabetic Eye Exam 02/23/2024 02/22/2023, , 07/02/2021, Additional history exists CKD HGB USE SMARTSET 07075 05/12/202405/12, 05/12/2023, 09/24/2021, Additional history exists GFR [...] filedocumented as of this encounter Care Teams Electrocardiograph Operator Relationship Specialty Start Date End Date Daysi Pham MD [address] [place] [address] [place] [address] PCP - General Family Medicine 07/01/17 documented as of this encounter
--- OUTSIDE RECORDS SUMMARY | 2024-02-02 11:43 | External Medical Summary ---
Author Name Unknown Address Unknown Organization [id number]:[facility] [place] [address] [facility] [address] Laboratory Report Ordering Provider Test Date Status RAPHAEL MOON 01/31/2024 14:34:53 Final Normal: <30 mg/g creatinine< br/>High: 30-300 mg/g creatinine
Very High: >300 mg/g creatinine
Nephrotic: >2200 mg/g creatinine Observation Date Value Abnormality Reference (Units ) Status Albumin, Urine 01/31/2024 14:34:53 207.00 (mg/dL) Final Creatinine, Urine 01/31/2024 14:34:53 105 (mg/dL) Final Albumin/Creatinine [Mass Ratio] in Urine 01/31/2024 14:34:53 1971 Above high normal <30 (mg/g Creat) Final Performing Location [facility] [place] [address] [facility] [address]
--- OUTSIDE RECORDS SUMMARY | 2024-02-02 11:43 | External Medical Summary ---
Author Name Unknown Address Unknown Organization [id number][place] [place] [address] [facility] [address] Laboratory Report Ordering Provider Test Date Status RAPHAEL MOON 01/31/2024 14:34:53 Final Normal: <150 mg/ g creatinine
High: 150-500 mg/g creatinine
Very High: >500 mg/g creatinine
Nephrotic: >3000 mg/g creatinine Observation Date Value Abnormality Reference (Units ) Status Protein/Creatinine [Ratio] in Urine 01/31/2024 14:34:53 3029 Above high normal <150 (mg/g ) Final Protein, Urine 01/31/2024 14:34:53 315 (mg/dL) Final Creatinine, Urine 01/31/2024 14:34:53 104 (mg/dL) Final Performing Location [facility] [place] [address] [facility] [address]
--- OUTSIDE RECORDS SUMMARY | 2024-02-02 11:43 | External Medical Summary ---
Author Name Unknown Address Unknown Organization [id number][place] [place] [address] [facility] [address] Laboratory Report Ordering Provider Test Date Status RAPHAEL MOON 01/31/2024 14:34:53 Final Observation Date Value Abnormality Reference (Units ) Status Color of Urine by Auto 01/31/2024 14:34:53 Yellow Colorless, Light Yellow, Yellow, Dark Yellow Final Clarity, Urine 01/31/2024 14:34:53 Clear Clear Final Glucose [Mass/volume] in Urine by Automated test strip 01/31/2024 14:34:53 >=1000 Abnormal Negative (mg/dL) Final Bilirubin.total [Presence] in Urine by Automated test strip 01/31/2024 14:34:53 Negative Negative Final Ketones [Mass/volume] in Urine by Automated test strip 01/31/2024 14:34:53 Negative Negative (mg/dL) Final Specific gravity, Urine 01/31/2024 14:34:53 1.037 Above high normal 1.003-1.030 Final Hemoglobin [Presence] in Urine by Automated test strip 01/31/2024 14:34:53 Negative Negative Final pH, Urine 01/31/2024 14:34:53 6.5 5.0-7.5 (Units) Final Protein [Mass/volume] in Urine by Automated test strip 01/31/2024 14:34:53 >300 Abnormal Negative (mg/dL) Final Urobilinogen [Mass/volume] in Urine by Automated test strip 01/31/2024 14:34:53 Normal Normal (mg/dL) Final Nitrite [Presence] in Urine by Automated test strip 01/31/2024 14:34:53 Negative Negative Final Leukocyte esterase [Presence] in Urine by Automated test strip 01/31/2024 14:34:53 Negative Negative Final RBC, Urine 01/31/2024 14:34:53 0-2 0-2 (/HPF) Final WBC, Urine 01/31/2024 14:34:53 3-5 Abnormal 0-2 (/HPF) Final Bacteria [#/area] in Urine sediment by Microscopy high power field 01/31/2024 14:34:53 0-25 0-25 (/HPF) Final Performing Location [facility] [place] [facility] [address] [facility] [address]
--- OUTSIDE RECORDS SUMMARY | 2024-02-02 11:44 | External Medical Summary | Continuity of Care Document ---
Author Name Unknown Organization [place] [id number] Address [address] [place] [id number] Care Team Providers Care Stemming Machine Operator Name Role Phone Daysi Pham Primary Care Physician [phone] [id number] Date(s): 12/15/23 - 12/15/[address] [facility] [address] [id number] [facility] Sports Medicine [address] [place] [id number] Encounter Diagnosis Ankle pain(Discharge Diagnosis) - 12/15/23 Discharge Disposition: Home or Self Care Attending Physician: MD Marlyn, Tho Sarabia Allergies, Adverse Reactions, Alerts Substance Criticality Severity Reaction Reaction Severity Status amoxicillin unknown Active buPROPion unknown Active niacin unknown Active predniSONE high blood pressure Active antihistamines unknown Activ e levoFLOXacin unknown Active Assessment and Plan Extracted from: Title:Tho Cline Author:Anastasiya Curry Date: IMPRESSION: 73 year old fema le with left ankle sprain, improving GOAL: Decrease pain PLAN: - RICE. -Use Tylenol as needed for pain. - Offered referral for formal PT but patient has elected to not proceed with treatment for right now - Recommended an ASO ankle brace for stability, gradually progress off the caneandwithout thebraceas tolerated. - Use single cane as needed for assistance ambulating -Patient was offered a follow-up appointment, but is elected to follow-up as needed The patient understood all my instructions and explanations; all their questions were satisfactorily addressed. Medications amitriptyline 10 mg oral tablet Start: 12/15/23 2:38:00 PM EDT, 1 tab, PO, qhs Start Date: 12/15/23 Status: Ordered atenolol 50 mg oral tablet Start: 12/15/23 2:40:00 PM EDT, 1 tab, PO, Daily Start Date: 12/15/23 Status: Ordered atorvastatin 80 mg oral tablet Start: 12/15/23 2:40:00 PM EDT, 1 tab, PO, Daily Start Date: 12/15/23 Status: Ordered Eliquis 5 mg oral tablet Start: 12/15/23 2:38:00 PM EDT, 1 tab, PO, bid Start Date: 12/15/23 Status: Ordered esomeprazole 40 mg oral delayed release capsule Start: 12/15/23 2:40:00 PM EDT, 1 cap, PO, Daily Start Date: 12/15/23 Status: Ordered isosorbide mononitrate 30 mg oral tablet, extended release Start: 12/15/23 2:39:00 PM EDT, 1 tab, PO, qAM Start Date: 12/15/23 Status: Ordered Jardiance 10 mg oral tablet Start: 12/15/23 2:39:00 PM EDT, 1 tab, PO, Daily, Disp# 30 tab Start Date: 12/15/23 Status: Ordered lisinopril 5 mg oral tablet Start: 12/15/23 2:39:00 PM EDT, 1 tab, PO, Daily Start Date: 12/15/23 Status: Ordered nystatin 100,000 units/mL oral suspension PLEASE SEE ATTACHED FOR DETAILED DIRECTIONS Start Date: 12/15/23 Status: Ordered pregabalin 25 mg oral capsule Start: 12/15/23 2:39:00 PM EDT, 1 cap, PO, Daily Start Date: 12/15/23 Status: Ordered Problem List Condition Confirmation Course Effective Dates Status Health at Informant Ankle pain Confirmed Active Diagnosis Diagnosis Type Effective Dates Health Status Cl[facility] Service Informant Ankle pain Discharge Diagnosis 12/15/23 Social History Social History Type Response Sex Female Sex Representation Female (finding) Ortho Outpt Note * MD Marlyn, Tho A: MODIFY MD Marlyn, Tho A: MODIFY Event Display: Ortho Outpt Note Authored Date: [id number] Primary Care Provider MD Vero, Daysi Guzman Chief Complaint left ankle pain History of Present Illness Deric Valdez presents today for left ankle injury. Patient went to the ER on 11/25. Patient states that she fainted andbelieves that her heart rate dropped too low. The ER gave her a heart monitor for further work-up. Patient had a stroke 5 years ago and reports no residual weakness. Patient complained of the boot being too big and has not been wearing it. She has been using a single cane to help ambulate. She takes Tylenol as needed. Today she rates her pain 2/10 Review of Systems A 14 point review of systems is available in the EMR. Physical Exam Focusing on the patient'sLEFTlower extremity: 2+ DP pulse Sensation to light touch is intact, distally Motor to the gastroc soleus, tibialis anterior, and EHL is 5/5. +Tenderness to palpation of the ATFL. - Forefoot squeeze test. - Calf squeeze test. There is mild bruising and swellingabout the ankle. Diagnostic Results XRAYS: 3 views (AP, Mortise, Lateral) of left ankledone today at [facility] [place] and personally interpreted by me which shows no acute fracture or dislocation. There is mild soft tissue swelling. Assessment/Plan IMPRESSION: 73 year old female with left ankle sprain, improving GOAL: Decrease pain PLAN: - RICE. -Use Tylenol as needed for pain. - Offered referral for formal PT but patient has elected to not proceed with treatment for right now - Recommended an ASO ankle brace for stability, gradually progress off the caneandwithout thebraceas tolerated. - Use single cane as needed for assistance ambulating -Patient was offered a follow-up appointment, but is elected to follow-up as needed The patient understood all my instructions and explanations; all their questions were satisfactorily addressed. Attestation IAnastasiya, scribing forand in the presence of, Tho Cline, on this date,12/15/2023 14:04:33. I, Dr. Cline, saw and examined the patient with Anastasiya Curry acting as my scribe. I reviewed the note and agree with the documented findings and the plan of care I developed. Problem List/Past Medical History Ongoing Ankle pain Medications amitriptyline(amitriptyline 10 mg oral tablet), 10 mg= 1 tab, PO, qhs apixaban(Eliquis 5 mg oral tablet), 5 mg= 1 tab, PO, bid atenolol(atenolol 50 mg oral tablet), 50 mg= 1 tab, PO, Daily atorvastatin(atorvastatin 80 mg oral tablet), 80 mg= 1 tab, PO, Daily empagliflozin(Jardiance 10 mg oral tablet), 10 mg= 1 tab, PO, Daily esomeprazole(esomeprazole 40 mg oral delayed release capsule), 40 mg= 1 cap, PO, Daily isosorbide mononitrate(isosorbide mononitrate 30 mg oral tablet, extended release), 30 mg= 1 tab, PO, qAM lisinopril(lisinopril 5 mg oral tablet), 5 mg= 1 tab, PO, Daily nystatin(nystatin 100,000 units/mL oral suspension) pregabalin(pregabalin 25 mg oral capsule), 25 mg= 1 cap, PO, Daily Allergies amoxicillinunknown antihistaminesunknown buPROPionunknown levoFLOXacinunknown niacinunknown predniSONEhigh blood pressure Recommendations Health Maintenance Pending(in the next year) OverDue Adult Influenza Vaccine due10/31/23and every 1year Due Adult COVID-19 Vaccination due12/15/23Unknown Frequency Adult Social Determinants of Health Screening due12/15/23Unknown Frequency Adult Tdap/Td Vaccine due12/15/23Unknown Frequency Body Mass Index due12/15/23Unknown Frequency Breast Cancer Screening due12/15/23nown Frequency Colorectal Cancer Screening due12/15/23Unknown Frequency Hepatitis C Screening due12/15/23One-time only Lipid Screening due12/15/23Unknown Frequency Medicare Annual Wellness Visit due12/15/23and every 1year Osteoporosis Screening due12/15/23One-time only Pneumococcal Vaccine Older Adults due12/15/23One-time only Shingles Vaccine due12/15/23One-time only Satisfied(in the past 1 year) There are no satisfied recommendations within the defined date range Electronic Signature on File Electronically Reviewed/Signed by: Anastasiya Curry Author Signature Dt/Tm:12/15/2023 03:05 PM Electronically Reviewed/Signed by: Tho Cline MD Cosigner Signature Dt/Tm: 12/15/2023 03:08 PM [facility] Water Fabricator Operator [facility] [address], [place] [address] KR Patient Care team information Care Team Personnel Name: MD Vero, Daysi Guzman Position: Referring DIRECT Member Role: Primary Care Provider Address: [address] [place], [place] [address] [address]
--- OUTSIDE RECORDS SUMMARY | 2024-02-02 11:44 | External Medical Summary | Summary of Care ---
Author Name Unknown Organization [facility] Address [address] [place] [address] Phone [phone] Care Team Providers Care It Assistant Name Role Phone Daysi Pham MD Primary Care Provide r Reason for Visit * Reason Comments Medication Refill Encounter Details Date Type Department Care Team (Late st Contact Info) Description 12/24/2023 Refill Family Medicine [address] [phone] Daysi Pham MD [address] [place] [address] [place] [phone] Type 2 diabetes, controlled, with neuropathy (HCC) Allergies Active Allergy Reactions Criticality Noted Date Comments Amoxicillin Rash 11/19/2011 Levofloxacin Other (Please comment) 11/13/2013 Weakness, lightheadedness, nausea Niacin Er 01/30/2010 Burned throat. Prednisone 09/03/2012 Blood pressure went up. Bupropion Hcl 01/30/2010 documented as of this encounter (statuses as of 12/25/2023) Medications Medication Sig Dispensed Refills Start Date End Date Status VITAMIN B COMPLEX PO CAPSIndications:sup plementation Take by mouth 1 Capsule daily . Active CO Q 10 100 MG PO CAPSIndications:leg pain Take by mouth 100 mg daily . Active ASPIRIN 81 MG PO TABSIndications:PenBladea Frontify Take 1 Tablet by mouth in the morning. Active oxygen GAS Use 2 L/min(Oxygen) as directed at bedtime. Active Respiratory Therapy Supplies (NEBULIZER) DEVIIndications:MANAGER INTERVENTIONAL D, moderate (HCC) Use as directed. Duonebs, 3 ml's every 6 hours as needed 1 Device 7 Active Multiple Vitamins-Minerals (MULTIVITAMIN WOMEN) TABSIndications:gen eral Frontify Take by mouth 1 Tablet daily . Active nitroglycerin (NITROSTAT) 0.4 MG SUBLIndications:Chr onic coronary artery disease Place 1 Tab under the tongue as needed for Pain, Chest. May repeat 3 times. If chest pain continues, call 911. 25 Tab 1 9 Active Wheat Dextrin (BENEFIBER) powderIndications:g ne health Take by mouth . 1 teaspoon [...] goal of less than 8.0% ([facility]) Use once a day Dx: E11.9 [...] MOUTH EVERY MORNING 90 Tablet 3 3 02/29/20 24 Active Ipratropium [place] 0.03 % Nasal Solution (Atrovent)Indicatio ns:Rhinorrhea ADMINISTER 2 SPRAYS INTO EACH NOSTRIL 4 TIMES A DAY NEEDED FOR RHINITIS. FOR RUNNY NOSE 90 mL 1 3 Active Ipratropium-Albuter ol 20-100 MCG/ACT Inhalation Aerosol Solution (Combivent Respimat)Indication s:COPD, group B, by GOLD 2017 classification ([facility]) INHALE 1 PUFF BY MOUTH IN THE MORNING, 1 PUFF AT NOON, 1 PUFF IN THE EVENING, AND 1 PUFF BEFORE BEDTIME 12 g 1 3 04/15/20 24 Active Esomeprazole Magnesium 40 MG Oral Capsule Delayed ReleaseIndications: Gastroesophageal reflux disease without esophagitis Take 1 Capsule by mouth 2 times a day with morning and evening meals. 200 Capsule 1 4 Active OneTouch Verio In Vitro Strip (Glucose Blood)Indications:T ype 2 diabetes mellitus with hemoglobin A1c goal of less than 8.0% ([facility]) USE TO TEST BLOOD SUGAR ONCE A DAY 100 Strip 3 4 Active Lisinopril 5 MG Oral Tablet (Prinivil)Indicatio ns:HTN, goal below 140/90 TAKE ONE TABLET BY MOUTH EVERY DAY 90 Tablet 3 4 08/12/19 25 Active Atorvastatin Calcium 80 MG Oral Tablet (Lipitor)Indication s:Dyslipidemia, goal LDL below 100 TAKE ONE TABLET BY MOUTH EVERYday 100 Tablet 3 4 10/18/19 25 Active OneTouch Delica Plus [id number] s:Type 2 diabetes mellitus with hemoglobin A1c goal of less than 8.0% ([facility]) USE TO TEST BLOOD SUGAR ONCE A DAY DIRECTED 100 Each 4 10/30/19 25 Active Amitriptyline HCl 10 MG Oral Tablet (Elavil)Indications :Insomnia, unspecified type take one tablet by mouth at bedtime 100 Tablet 1 4 Active Empagliflozin 10 MG Oral Tablet (Jardiance)Indicati ons:Type 2 diabetes mellitus with hemoglobin A1c goal of less than 8.0% ([facility]) Take 1 Tablet by mouth in the morning. 90 Tablet 3 4 Active Nystatin 706257 UNIT/ML Mouth/Throat SuspensionIndicatio ns:Thrush Swish and swallow 5 mL in the morning and 5 mL at noon and 5 mL in the evening and 5 mL before bedtime. For thrush.. 240 mL 1 4 01/05/20 Active Atenolol 50 MG Oral Tablet (Tenormin)Indicatio ns:Chronic coronary artery disease Take 1 Tablet by mouth in the morning. 4 Active Apixaban 5 MG Oral Tablet (Eliquis)Indication s:Cerebrovascular disease, arteriosclerotic, post-stroke,Paroxys mal atrial fibrillation (HCC) TAKE ONE TABLET BY MOUTH TWICE A DAY 200 Tablet 1 4 Active Pregabalin 25 MG Oral Capsule (Lyrica)Indications :Type 2 diabetes, controlled, with neuropathy (HCC) TAKE ONE CAPSULE BY MOUTH EVERY MORNING AND TAKE ONE CAPSULE BEFORE BEDTIME 60 Capsule 2 4 Active Pregabalin 25 MG Oral Capsule (Lyrica)Indications :Type 2 diabetes, controlled, with neuropathy (HCC) TAKE ONE CAPSULE BY MOUTH EVERY MORNING AND TAKE ONE CAPSULE BEFORE BEDTIME 60 Capsule 2 4 12/24/19 Discontinu ed(Refill) documented as of this encounter (statuses as of 12/25/2023) Active Problems Problem Noted Date Diagnosed Date [...] as of this encounter (statuses as of 12/25/2023) Resolved Problems Problem Noted Date Diagnosed Date [...] as of this encounter (statuses as of 12/25/2023) Immunizations Name Administration Dates Next Due COVID-19 mRNA, LNP-s, No Pre serve, 2-Dose Series (iExplore) 03/25/2021,08/27/2020,08/06/2020 COVID-19, MRNA-LNP, 23-24, P F, 30 MCG/0.3 mL, 12 YRS AND ABOVE, IM (fuseSPORT-Comirnat) 06/14/2023 Covid-19, Mrna, Lnp-s, Pf, B ivalent, [...] Telephone Encounter - Daysi Pham MD - 12/25/2023 11:08 AM EDT Signed Prescriptions: Disp Refills Pregabalin 25 MG Oral Capsule (Lyrica) 60 Cap*2 Sig: TAKE ONE CAPSULE BY MOUTH EVERY MORNING AND TAKE ONE CAPSULE BEFORE BEDTIME Authorizing Provider: DAYSI PHAM * Telephone Encounter - Justina Ochoa [facility] - 12/25/2023 9:31 AM EDTPending Prescriptions: Disp Refills Pregabalin 25 MG Oral Capsule (Lyrica) 60 Cap*2 Sig: TAKE ONE CAPSULE BY MOUTH EVERY MORNING AND TAKE ONE CAPSULE BEFORE BEDTIME * Telephone Encounter - Justina Ochoa [facility] - 12/25/2023 9:29 AM EDTPending Prescriptions: Disp Refills Pregabalin 25 MG Oral Capsule (Lyrica) 60 Cap*2 Sig: TAKE ONE CAPSULE BY MOUTH EVERY MORNING AND TAKE ONE CAPSULE BEFORE BEDTIME * Telephone Encounter - Justina Ochoa [facility] - 12/25/2023 9:28 AM EDT I have reviewed the patients controlled substance dispensing history in the Prescription Drug Monitoring Program in compliance with the [place] regulations before prescribing a controlled substance. PDMP checked on 12/25/2023. Pending Prescriptions: Disp Refills Pregabalin 25 MG Oral Capsule (Lyrica) 60 Cap*2 Sig: TAKE ONE CAPSULE BY MOUTH EVERY MORNING AND TAKE ONE CAPSULE BEFORE BEDTIME Last Visit: 12/06/2023 (in office), Visit date not found (telemedicine) Next Visit: 06/20/2024 Date medication was last filled: 11/26/23 Date medication is due for refill: 12/25/23 [facility] Is this request for a controlled substance? Yes and Urine Drug Screen Not completed Toxicology results: No results found. However, due to the size of the patient record, not all encounters were searched.Please check Results Review for a complete set of results. Please approve if appropriate. Thanks, Justina Ochoa Clinical Pharmacist [facility] ([facility] [phone] 12/25/2023, 9:29 AM * Telephone Encounter - Zenia Combs CPhT - 12/24/2023 12:48 PM EDT Did you pend patient's preferred pharmacy and medication before forwarding?yes Pharmacy[facility] Pending Prescriptions: Disp Refills Pregabalin 25 MG Oral Capsule (Lyrica) 60 Cap*2 Sig: TAKE ONE CAPSULE BY MOUTH EVERY MORNING AND TAKE ONE CAPSULE BEFORE BEDTIME Last Visit: 12/06/2023 (in office), Visit date not found (telemedicine) Next Visit: 06/20/2024 If no future appointments scheduled, and last appointment is greater than a year ago, please schedule patient for a follow-up appointment Last date the medication was ordered: 09/30/23 Is this request for a controlled substance?Yes, What was the last refill date 09/30/23 w/ quantity 60 and dosage bid and Urine Drug Screen Not completed Urine Drug Screen:No results found. However, due to the size of the patient record, not all encounters were searched. Please check Results Review for a complete set of results. Patient Phone Numbers Labs: Lab Results Component Value Date/Time CREAT 1.2 (H) 11/15/2023 01:44 PM CREAT 0.9 12/21/2019 03:02 PM CREAT 0.7 04/07/1996 03:55 PM POTASSIUM 4.4 11/22/2023 01:38 PM POTASSIUM 4.8 12/21/2019 03:02 PM POTASSIUM 3.8 04/07/1996 03:55 PM TSH 1.43 08/11/2018 08:30 AM TSH 1.40 04/07/1996 03:55 PM LDLCALC 33 03/14/2019 02:35 PM LDLDIRECT 54 11/15/2023 01:44 PM LDLDIRECT 34 12/21/2019 03:02 PM LDLDIRECT 60 11/09/2013 08:40 AM ALT 23 11/15/2023 01:44 PM ALT 48 (H) 12/21/2019 03:02 PM HGBA1C 6.6 (H) 11/15/2023 01:44 PM HGBA1C 6.7 (H) 12/24/2018 02:25 AM HGBA1C 6.1 12/29/2016 08:27 AM documented in this encounter Plan of Treatment Upcoming Encounters Date Type Department Care Team (Late st Contact Info) Description 01/20/2024 2:30 PM EDT Office Visit Cardiology, [facility] [address] [place] [address] Enrico De La Torre PA-C [address] [place] [address] 01/31/2024 1:00 PM EDT Office Visit Nephrology [address] [place] [id number] Selene Veronica MD [address] [facility] [place] [address] 06/20/2024 1:40 PM EST Office Visit Family Medicine [address] [place] [phone] Daysi Pham MD [address] [place] [address] [place] [id number] 08/29/2024 3:00 PM EDT Nurse Only Ancillary [address] [place] [address] Zabrina Nurse [address] [place] [address] Health Maintenance Due Date Last Done Comments Alpha-1 Antitrypsin 1967 Sigmoidoscopy 1994 Fecal Occult Blood Test 11/06/2006 11/06/2005 DTaP,Tdap,and Td Vaccines (2 - Td or Tdap) 10/25/2017 10/26/2007 Colonoscopy 01/24/2019 01/24/2018, 09/01, 08/11/2007, Additional history exists Colorectal Cancer Screening 01/24/2019 Zoster Vaccines (3 of 3) 03/10/2019 01/13/2019, 03/03 Cologuard 11/04/2020 11/04/2017 COVID-19 Vaccine ( season) 2023 06/14/2023, 04/28/2022, 03/25/2021, Additional history exists Mammogram 11/19/2023 11/18/2022, 08/2022, 11/04/2022, Additional history exists Influenza Vaccine (FLU shot) (#1) 2024 01/20/2022, 01/20/2022, 02/06/2021, Additional history exists Diabetic Eye Exam 02/23/2024 02/22/2023, , 07/02/2021, Additional history exists GFR 05/17/2024 11/15/2023, 05/03, [...] uncontrolled documented in this encounter Care Teams It Assistant Relationship Specialty Start Date End Date Daysi Pham MD [address] [place] [address] [place] [phone] PCP - General Family Medicine 07/01/17 documented as of this encounter
--- NOTE | 2024-02-02 13:17 | History & Physical Bridge Note ---
Date of Service February 02, 2024 History & Physical Bridge Note I have examined the patient, reviewed the History & Physical and in the interval since the performance of the History & Physical I have noted the following changes of clinical significance: no changes noted; pt with TBS recommended a pacemaker prior to hospital discharge. She was explained the procedure benefits and risks; she expressed an understanding and consents signed.
--- NOTE | 2024-02-02 13:18 | Pre Anesthesia Assessment ---
Date of Service February 02, 2024 Pre Sedation Assessment Vital Signs Temp Pulse Pulse Resp BP BP Pulse Ox 02/02/24 10:44 36.9 C 70 18 117/73 88 L 02/02/24 10:37 36.5 C 61 17 136/76 95 02/02/24 08:03 37.1 C 86 18 153/99 H 93 02/02/24 07:31 84 02/02/24 07:15 02/02/24 03:34 36.3 C L 56 L 20 118/79 92 02/02/24 00:27 89 02/02/24 00:00 02/01/24 23:39 02/01/24 23:39 37.4 C 87 22 184/97 H 91 02/01/24 23:29 02/01/24 23:03 37.4 C 87 22 184/97 H 91 02/01/24 22:39 73 19 121/90 91 02/01/24 22:00 80 18 125/91 92 02/01/24 20:24 73 18 125/91 91 02/01/24 19:11 78 20 125/91 88 L 02/01/24 19:11 88 L 02/01/24 18:58 82 02/01/24 18:39 36.2 C L 73 20 185/85 H 90 Pulse Ox O2 Del Method O2 Del Method O2 Flow Rate O2 Flow Rate 02/02/24 10:44 Nasal Cannula 5 02/02/24 10:37 Room Air 02/02/24 08:03 Nasal Cannula 5 02/02/24 07:31 02/02/24 07:15 Nasal Cannula 5 02/02/24 03:34 Nasal Cannula 5 02/02/24 00:27 02/02/24 00:00 92 Nasal Cannula 5 02/01/24 23:39 Nasal Cannula 5 02/01/24 23:39 Nasal Cannula 5 02/01/24 23:29 92 Nasal Cannula 5 02/01/24 23:03 Nasal Cannula 5 02/01/24 22:39 Room Air 02/01/24 22:00 Nasal Cannula 4 02/01/24 20:24 Nasal Cannula 4 02/01/24 19:11 Nasal Cannula 3 02/01/24 19:11 Nasal Cannula 3 02/01/24 18:58 02/01/24 18:39 Nasal Cannula 3 Cardiovascular RRR, no murmur, no edema Respiratory normal respiratory effort, lungs clear to auscultation Pre-Sedation Airway Assessment Smoking Status: Former smoker Hx Sleep Apnea: No Hx Difficult Intubation: No Short, Thick Neck: No Thyromental Distance: < 3.5 Finger Breadths Oral Cavity: + Dental Abnormalities Mallampati Class: II ASA: ASA3 NPO Status Date of Last Intake of Fluids: 02/01/24 Date of Last Intake of Solid Food: 02/01/24 Procedure Planning Contraindications for Sedation: none Current Medications Reviewed: Yes Notes The planned sedation has been discussed with the patient. Informed Consent was obtained. I have identified the patient, determined the appropriateness of sedation and have assessed the patient immediately prior to the procedure. All medicine(s) and interventions are by my order.
[2024-02-02] MEDS: LIDOCAINE 1% LOCAL 20 ML VIAL ONE (14:07)
[2024-02-02] MEDS: CLINDAMYCIN 900 MG/D5W 50 ML BAG IV ONE (14:08)
[2024-02-02] MEDS: ENALAPRILAT 2.5 MG/2 ML 2ML VIAL IV ONE ×2 (14:13→14:26)
[2024-02-02] MEDS: fentaNYL citrate PF 100 MCG/2 ML VIAL ONE (14:26)
[2024-02-02] MEDS: MIDAZOLAM HCL 5 MG/ML 1 ML VIAL ONE (14:27)
--- NOTE | 2024-02-02 14:37 | Hospitalist Progress Note ---
Date of Service February 02, 2024 Assessment & Plan (1) Acute on chronic respiratory failure with hypoxia and hypercapnia: Plan Pt is a 73yoF with PMHx significant for chronic diastolic heart failure (EF 55 to 60%, TTE 2023), CAD, A-fib on Eliquis, PSVT, valvular heart disease (trace MR, mild MR), CVA, PVD status post surgery, hypertension, hyperlipidemia, chronic respiratory failure secondary to COPD on home O2, pulmonary nodules, NAFLD, DM2 on oral medications, chronic anemia (baseline hemoglobin of 11), past tobacco abuse who was sent in for further evaluation for an abnormal Zio patch. Tachybradycardia syndrome was noted as well as sinus pauses on outpatient Zio patch. Tachybradycardia syndrome Sinus pauses Noted on home heart monitoring with Zio patch Advised to present for further evaluation by cardiology s/p PPM on 02/02/24 Pt with episode of hypotension and dizziness afterwards requiring fluid bolus of 1L Continue to hold home antihypertensives (atenolol and lisinopril) Resume home eliquis Continue to monitor on telemetry Cardiology consulted, appreciate recs CHF Chest xray was concerning for acute decompensation Pt received IV lasix 20mg on admission Currently hypotensive post procedure, given 1L of fluids Cardiology consulted, appreciate recs Chronic respiratory failure secondary to COPD on home O2 Hyperlipidemia continue statin Rx DMII on oral medications well-controlled as of recent hemoglobin A1c of 6.07 November 2023 Basal/bolus per protocol chronic anemia hemoglobin at baseline Diet: DMII/HH DVT prophylaxis. SCDs while Eliquis on hold Full code Dispo: PCU/tele, PT/OT once medically stable Admission and Anticipated Discharge Date Admission Date: February 01, 2024 Subjective Pt was seen after pacemaker placement. States that she is feeling dizzy. Notes that she has been feeling dizzy since she was down in the recovery room. Denies chest pain or SOB Review of Systems Review of Systems: All systems reviewed & are unremarkable except as noted in Subjective Physical Exam Physical Exam: General: Alert, oriented. No acute distress Psych: Appropriate mood and affect Neuro: No gross deficits while laying in bed HEENT: NC/AT CV: RRR Resp: no increased effort of breathing Abdomen: Soft Extremities: Trace edema in lower extremities bilaterally. Results & Data Results & Data Vital Signs (Past 12 Hours) Vital Signs Temp Pulse Pulse Resp BP Pulse Ox O2 Del Method 02/02/24 10:44 36.9 C 70 18 117/73 88 L Nasal Cannula 02/02/24 10:37 36.5 C 61 17 136/76 95 Room Air 02/02/24 08:03 37.1 C 86 18 153/99 H 93 Nasal Cannula 02/02/24 07:31 84 02/02/24 07:15 Nasal Cannula 02/02/24 03:34 36.3 C L 56 L 20 118/79 92 Nasal Cannula O2 Flow Rate 02/02/24 10:44 5 02/02/24 10:37 02/02/24 08:03 5 02/02/24 07:31 02/02/24 07:15 5 02/02/24 03:34 5 Diagnostic Findings Chest X-Ray 02/01/24 18:49 XR chest 1V portable CLINICAL HISTORY: Dysrhythmia. COMPARISON STUDY: Chest radiograph November 26, 2023. FINDINGS: There is no pneumothorax. Small bilateral pleural effusions are present. There are associated bibasilar opacities which favor atelectasis. Cardiomegaly is again noted. Interstitial thickening represents mild pulmonary edema. Right lung airspace opacity shown on prior exam have improved. IMPRESSION: Cardiomegaly with interstitial pulmonary edema and small bilateral pleural effusions and associated bibasilar opacities which favor atelectasis. ACT 112: Negative or not required by law. Electronically signed by: Nima Kelly M.D. 02/02/2024 6:41 AM Chest X-Ray 02/02/24 17:00 SINGLE VIEW CHEST CLINICAL HISTORY: Pacemaker implantation. FINDINGS: An AP, portable, upright chest radiograph is compared to study dated 02/01/2024. A 2-lead cardiac pacemaker is new from 02/01/2024. Leads project over the right atrial appendage and right ventricle. The heart is enlarged noting atherosclerotic calcification of the thoracic aorta. There is pulmonary vascular congestion with mild interstitial edema. There are small pleural effusions with dependent atelectasis. No pneumothorax is seen. The skeletal structures are osteopenic. The bony thorax is grossly intact. IMPRESSION: 1. A 2-lead cardiac pacemaker has been implanted as above. No pneumothorax is s een post procedure. 2. Cardiomegaly with evidence of congestive failure and mild pulmonary edema. 3. Small pleural effusions. ACT 112: Negative or not required by law. Electronically signed by: Tomy Jack M.D. 02/02/2024 5:06 PM
--- NOTE | 2024-02-02 15:07 | Electrocardiogram Report ---
Test Reason : Blood Pressure : */* mmHG Vent. Rate : 79 BPM Atrial Rate : 79 BPM P-R Int : 208 ms QRS Dur : 124 ms QT Int : 440 ms P-R-T Axes : 102 39 -14 degrees QTcB Int : 504 ms Normal sinus rhythm Right bundle branch block Nonspecific ST and T wave abnormality Abnormal ECG When compared with ECG of 27-Nov-2023 06:11, No significant change was found Confirmed by Red Estevez ([id number]) on 02/02/2024 3:07:33 PM Referred By: Enrico De La Torre Confirmed By: Red Estevez
--- NOTE | 2024-02-02 15:09 | Post Anesthesia Assessment ---
Date of Service February 02, 2024 Post Sedation Assessment Vital Signs Temp Pulse Pulse Resp BP BP Pulse Ox 02/02/24 10:44 36.9 C 70 18 117/73 88 L 02/02/24 10:37 36.5 C 61 17 136/76 95 02/02/24 08:03 37.1 C 86 18 153/99 H 93 02/02/24 07:31 84 02/02/24 07:15 02/02/24 03:34 36.3 C L 56 L 20 118/79 92 02/02/24 00:27 89 02/02/24 00:00 02/01/24 23:39 02/01/24 23:39 37.4 C 87 22 184/97 H 91 02/01/24 23:29 02/01/24 23:03 37.4 C 87 22 184/97 H 91 02/01/24 22:39 73 19 121/90 91 02/01/24 22:00 80 18 125/91 92 02/01/24 20:24 73 18 125/91 91 02/01/24 19:11 78 20 125/91 88 L 02/01/24 19:11 88 L 02/01/24 18:58 82 02/01/24 18:39 36.2 C L 73 20 185/85 H 90 Pulse Ox O2 Del Method O2 Del Method O2 Flow Rate O2 Flow Rate 02/02/24 10:44 Nasal Cannula 5 02/02/24 10:37 Room Air 02/02/24 08:03 Nasal Cannula 5 02/02/24 07:31 02/02/24 07:15 Nasal Cannula 5 02/02/24 03:34 Nasal Cannula 5 02/02/24 00:27 02/02/24 00:00 92 Nasal Cannula 5 02/01/24 23:39 Nasal Cannula 5 02/01/24 23:39 Nasal Cannula 5 02/01/24 23:29 92 Nasal Cannula 5 02/01/24 23:03 Nasal Cannula 5 02/01/24 22:39 Room Air 02/01/24 22:00 Nasal Cannula 4 02/01/24 20:24 Nasal Cannula 4 02/01/24 19:11 Nasal Cannula 3 02/01/24 19:11 Nasal Cannula 3 02/01/24 18:58 02/01/24 18:39 Nasal Cannula 3 Recovery Score Activity: Moves 4 extremities Respiration: Deep Breath/Cough Circulation: +/-20% PreAnes Value Consciousness: Fully Awake Oxygen Saturation: > 92% On Room Air Discharge Sedation Level of Care: Fast Track Phase II Post Sedation Plan On clinical assessment, the patient appears to have tolerated the sedation without complications. Patient is recovering as anticipated. Patient will continue to be monitored by nursing and may be discharged when sedation discharge criteria are met per below protocol. Upon Completions of procedure up to 15 minutes continue every 5 minute vital signs and the P.A.R. score; then discharge to a Phase I or Fast Track to Phase II per the following guidelines: * Discharge Patient to appropriate Phase II area if PAR is 8 or greater or return to pre- procedure baseline. The post - procedure orders will be as directed. * If PAR score is less than 8 or not return to pre-procedure baseline then patient will follow Phase I monitoring till PAR is reached for Phase II. The Phase I may be done in procedure room or may call to secure a Phase I area. * If naloxone or flumazenil are used for reversal, hold in Phase I for continued monitoring from when last reversal dose was given for a minimum of 60 minutes or longer pending the nurse and/or physician discretion of patient condition before discharge to Phase II. Please call the Sedation Physician to re-evaluate and complete post-note for discharge to Phase II area. Do NOT discharge from procedure sedation or Phase 1 until post- sedation evaluation note is complete by procedure /sedation MD Sedation Discharge Instructions to be given to the patient at discharge to home.
--- NOTE | 2024-02-02 15:18 | Operative Report ---
Post Operative Report DICTATED BY:Regine Barcenas D.O. DATE OF PROCEDURE: 02/02/2024 PREOPERATIVE DIAGNOSES: TBS POSTOPERATIVE DIAGNOSIS: Same PROCEDURE: A dual-chamber rate responsive permanent pacemaker and intracardiac electrogram His bundle recordings, along with a peripheral venogram under fluoroscopic guidance. SURGEON: Regine Barcenas DO ASSISTANTS: None. ANESTHESIA: Monitored conscious sedation administered under my supervision by Mamta Rincon. Start time 13:50, end time 15:06, a total of 2 mg of Versed and 50 mcg of fentanyl. INTRAVENOUS FLUIDS: 200 mL. CONTRAST: 15 mL. ANTIBIOTICS: 900mg clindamycin ADDITIONAL MEDICATIONS: 5mg vasotec BLOOD LOSS: 50 mL. URINE OUTPUT: Not applicable. SPECIMENS: None. FINDINGS: See below. DRAINS: None. COMPLICATIONS: None. CONDITION: Stable. INDICATIONS: This is a 73-year-old gentleman who has a past medical history ASCVD with a chronic total RCA occlusion, 30% LCX stenosis, and luminal irregularities of all other vessels by 01/2006 cath at [facility], Ischemic cardiomyopathy with past LVEF 40%, Carotid disease s/p bilateral CEA's with bilateral recurrence, Acute left MCA stroke in December 2018, Paroxysmal atrial fibrillation observed at [facility] in December 2018, PAD with L>R claudication with leg pain, Subclavian artery stenosis versus occlusion, Right renal artery stenosis, SMA stenosis, PSV, COPD, Severe nocturnal hypoxemia treated with supplemental oxygen therapy QHS, Secondary polycythemia, Type II diabetes mellitus with neuropathy, Pulmonary nodules, Hypertension, Hyperlipidemia, GERD, Fatty liver, Psoriasis, Plantar fasciitis, Insomnia, Vertigo, Osteoarthritis, Diverticulosis, IBS. Pt had syncope and on a zio patch found to have sinus pauses up to 6 seconds with evidence of TBS. She was sent to the ER and recommended a pacemaker prior to hospital discharge. CONSENT: Consent was obtained prior to the patient going into the electrophysiology lab. The patient was informed of the risks, benefits, and alternatives to the procedure. Risks include, but not limited to, sudden cardiac , cardiac arrhythmias, cerebrovascular accident, myocardial infarction, injury to his blood vessels, chamber of the heart and lung, bleeding and infection. The patient understood these risks and agreed to the procedure as planned. Informed consent was obtained. DESCRIPTION OF PROCEDURE: The patient was brought into electrophysiology lab in a fasting state. She was connected to continuous cardiac monitoring. A timeout was performed to ensure the patient's identity and procedure correctly. She was prepped and draped in the left infraclavicular space in normal surgical standard fashion. Monitored conscious sedation was given throughout the procedure for the patient's comfort level. [place] precautions were maintained throughout the procedure. Prophylactic antibiotics were given prior to incision. A 20 mL of 1% lidocaine and bupivacaine mixture were given in the left deltopectoral groove. An incision was made in the left deltopectoral groove. Blunt dissection was performed down to the pectoralis muscle. Then, using blunt dissection over the pectoralis muscle within the pectoral fascia, a pacemaker pocket was created. Then, a peripheral venogram was performed to identify the axillary vein. Venous axillary access was obtained through a needlestick without any problems. A guidewire was inserted without any resistance. A 6- Hungarian sheath was inserted over the guidewire without any resistance. Dilator was removed and a second guidewire was inserted through the sheath to allow for retained venous access. Then a 9 Hungarian sheath was inserted over one of the guidewires. The guidewire and dilator were removed. Then, the [employer] Report Specialist 3D medium sheath was inserted through the 9-Hungarian sheath over a Glidewire into the right ventricle. The Glidewire and dilator were removed. Then, the left bundle lead was advanced through the sheath and intracardiac electrogram His bundle recordings were performed when the camera was in NAZARIO 10. Once I found where the His bundle is, see below for results, I then moved the camera to NAZARIO 30 and marked where the His bundle was on my fluoroscopy screen. I came down about 2 cm from this in a line that would extend out to the apex and then started coming on pacing. Once I found an area where I had a nice W formed pace complex in my lead V1, I then moved the camera to DANIELA 30. Then the helix was extended into the septum. Then the helix locking tool was placed. Then the lead was screwed further into the septum while pacing by giving slow clockwise turns. The paced complex changed to a nice R' in V1 and the pacing stim to peak QRS in V6 was good. Of note I tried a large curved sheath and this did not help me. I went back to the [facility] and used a red firm stylet to help the lead drive further into the septum. So I did reposition the lead a few times. I then gave contrast through the sheath to see how far the lead was into the septum and then I slit the CPS Report Specialist 3D medium sheath under fluoroscopic guidance and left the 9-Hungarian sheath in while I positioned the right atrial lead. A 6-Hungarian sheath was inserted over the retained guidewire, the guidewire and dilator removed. The right atrial lead was then advanced into right atrium and positioned into right atrial appendage under fluoroscopic guidance. There was adequate pacing and sensing thresholds and no diaphragmatic stimulation with high output pacing. The 6-Hungarian sheath was peeled away and the lead was fixated to the pectoralis muscle using 0 silk suture. The 9-Hungarian sheath around the left bundle lead was peeled away and the lead was fixated to pectoralis muscle using 0 silk suture. The pocket was flushed with copious amounts of vancomycin and saline wash and inspected for hemostasis. The leads were then attached to the pulse generator making sure the pins were in appropriate position, passed set screws, and set screws were all tightened. Pulse generator was then placed in the pocket, making sure the leads were lying flat beneath the device. The incision was closed in a 3-layer fashion using 2-0 Vicryl interrupted suture, followed by 3-0 Vicryl interrupted suture, followed by 4-0 Monocryl running stitch. Then a primaseal dressing was placed EQUIPMENT: 1. Pulse generator is a [employer] AssMagForce MRI Model Number [id number] SN: [id number] 2. Right atrial lead, Larsen SJM Tendril STS [id number] SN: [id number] 3. Left bundle lead, Larsen SJM Tendril STS [id number] SN: [id number] INTRAPROCEDURAL FINDINGS: 1. Intracardiac electrogram His bundle recordings, AH is 97 milliseconds, HV is 50 milliseconds. 2. Right atrial lead, P waves 1.55 millivolts, impedance 480 ohms, threshold not done pt was in AF at the time 3. Left bundle lead, R waves12.8 millivolts, impedance 871 ohms, threshold 1.6 volts at 0.4 milliseconds. FINAL MEASUREMENTS THROUGH THE DEVICE: 1. Right atrial lead, P waves 4.3millivolts, impedance 490 ohms, threshold 0.5 volt at 0.4 milliseconds. 2. Left bundle lead, R waves >12 millivolts, impedance 890 ohms, threshold 0.75 volts at 0.4 milliseconds. FINAL PARAMETERS: DDD 60/120, right atrial amplitude 3.5 volts, pulse width 0.4 milliseconds, sensitivity 0.3 millivolts. Left bundle lead amplitude 3.5 volts, pulse width 0.4 milliseconds, sensitivity 2 millivolts. IMPRESSION: Successful dual chamber rate responsive permanent pacemaker under fluoroscopic guidance along with peripheral venogram and intracardiac electrogram His bundle recordings, all under fluoroscopic guidance secondary to TBS PLAN: Monitor the patient post-procedure. A 12-lead ECG, chest x-ray. She is not to lift the left elbow or left shoulder for 1 month. She cannot lift more than 10 pounds with the left arm for 2 weeks. She is to keep the dressing on and dry until her wound check next week and try to wear the surgical bra for support to help with wound healing.
[2024-02-02] MEDS: BUPIVACAINE 0.25% PF 30 ML VIAL ONE (16:06)
[2024-02-02] MEDS: WATER, STERILE FOR INJ 10 ML VIAL ONE (16:07)
[2024-02-02] MEDS: VANCOMYCIN HCL 1000MG/20ML VIAL ONE (16:07)
[2024-02-02] MEDS ORDERED: Nursing to Pharmacy Communication SCH (17:00)
--- NOTE | 2024-02-02 17:07 | XRay Report ---
SINGLE VIEW CHEST CLINICAL HISTORY: Pacemaker implantation. FINDINGS: An AP, portable, upright chest radiograph is compared to study dated 02/01/2024. A 2-lead ca rdiac pacemaker is new from 02/01/2024. Leads project over the right atrial appendage and right ventri alethea. The heart is enlarged noting atherosclerotic calcification of the thoracic aorta. There is pulmo nary vascular congestion with mild interstitial edema. There are small pleural effusions with depende nt atelectasis. No pneumothorax is seen. The skeletal structures are osteopenic. The bony thorax is g rossly intact. IMPRESSION: 1. A 2-lead cardiac pacemaker has been implanted as above. No pneumothorax is seen post procedure. 2. Cardiomegaly with evidence of congestive failure and mild pulmonary edema. 3. Small pleural effusions. ACT 112: Negative or not required by law. Electronically signed by: Tomy Jack M.D. 02/02/2024 5:06 PM
[2024-02-02] MEDS: SODIUM CHLORIDE 0.9% 500 ML IV ONE ×2 (17:40→18:32)
--- NOTE | 2024-02-02 17:57 | Communication Note ---
Date of Service: February 02, 2024 Asked to see patient with hypotension and dizziness during bowel movement Transient blood pressures into the 60s systolic Responded to IV fluids with 500 cc bolus Patient had lapsed into atrial fibrillation approximately 5 PM with controlled ventricular response EKG with atrial fibrillation with controlled ventricular response. Pacemaker functioning appropriately with intermittent ventricular pacing Patient feeling improved after bowel movement and IV fluid Patient did receive IV furosemide prior evening as well as IV enalapril x 2 during recent procedure Exam: After IV fluids blood pressure 110/67, no pulses paradoxus. No jugular venous distention no cardiac rub Lungs with good aeration to both apices Pacemaker site without hematoma Cardiovascular Tristen irregular irregular no audible rub Impression plan: Hypotension: Transient, multifactorial including recurrence of atrial fibrillation, vagal event on toilet and mild volume depletion/patient recent med furosemide and IV enalapril. Exam does not suggest tamponade or pneumothorax. Patient currently comfortable Would continue IV fluids for 1 L Restart apixaban this evening Will give low-dose of metoprolol succinate 12.5 mg this evening at 2100 if blood pressure allows If atrial fibrillation still present in a.m. may consider antiarrhythmic therapy EKG in a.m.
[2024-02-02] MEDS: APIXABAN 5 MG TABLET PO SCH (20:53)
[2024-02-02] MEDS: METOPROLOL SUCC 25MG EXT REL TAB PO SCH (20:56)
[2024-02-03 06:31] LABS: Hematocrit (blood only) 35.4 % (37.0-47.0); Hemoglobin 11.2 g/dl (12.0-16.0); Mean Corpuscular Hemoglobin 31.5 pg (25.0-34.0); Mean Corpuscular Hgb Conc 31.6 g/dL (32.0-36.0); Mean Corpuscular Volume 99.4 fL (80.0-100.0); Mean Platelet Volume 10.1 fL (9.4-12.4); Platelet Count 190 K/uL (130-400); RDW Coefficient of Variation 15.3 % (11.5-14.5); RDW Standard Deviation 54.4 fL (36.4-46.3); Red Blood Count 3.56 M/uL (4.20-5.40); White Blood Count 9.45 K/ul (4.8-10.8)
[2024-02-03 06:40] LABS: BUN Creatinine Ratio 19.2 (10-20); Calcium 9.1 mg/dl (8.6-10.3); Creatinine Clr Calc Pharmacy 55.1 ml/min; Magnesium 1.6 mg/dl (1.7-2.4); Phosphorus 3.8 mg/dl (2.5-4.9); Potassium 3.6 mmol/L (3.5-5.1)
[2024-02-03] MEDS: EMPAGLIFLOZIN 10 MG TAB PO SCH (08:01)
[2024-02-03] MEDS: METOPROLOL SUCC 25MG EXT REL TAB PO SCH (08:01)
[2024-02-03] MEDS: MAGNESIUM SULFATE / D5W 1 GM/100 ML BAG IV SCH ×2 (10:32→10:33)
--- NOTE | 2024-02-03 12:34 | Cardiology Progress Note ---
Date of Service February 03, 2024 Assessment & Plan (1) Tachy-maribel syndrome: (2) Sinus pause: (3) Paroxysmal A-fib: (4) S/P cardiac pacemaker procedure: Plan 02/02/24 Patient with evidence of tachybrady syndrome with multiple symptomatic conversion pauses on outpatient ZIO. Past syncope/near syncope. Recommend dual chamber pacemaker. Risks/benefits discussed with patient. She is agreeable to proceeding. Keep NPO for procedure today with Dr. Barcenas Currently beta lacy on hold. Transition to metoprolol after pacemaker. 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 Resume after procedure for PAF. SOB and wheezing noted on admission. Treated with nebs and dose of IV lasix. Hypokalemia this morning - supplemented and recheck BMP and magnesium. Currently patient appears euvolemic. Known chronic respiratory failure with hypoxia. Continue supplemental O2. 02/03/24: last night patient had hypotensive episode, likely vasovagal in setting of volume depeletion. Improved with IV fluids. No recurrent symptoms this morning. BP now hypertensive. She has had several episodes of PAF since admission. Recommend initiation of low dose sotalol 40 mg BID. Maintain telemetry. Monitor QT interval with EKG's. ordered for tonight and AM. Patient is agreeable to staying for ongoing antiarrhythmic load. Case discussed with Dr. Bustamante Will follow. I spent a total of 30 minutes on the date of service in preparation, delivery, and documentation of the care provided to this patient, excluding any time spent in the performance of separately billed services. Naya Kiser PA-C Department of Cardiology, [facility] This chart was completed in part utilizing Speech Voice Recognition Software. Grammatical errors, random word insertions, pronoun errors, and incomplete sentences are an occasional consequence of this system due to software limitations, ambient noise, and hardware issues. Any formal questions or concerns about the content, text, or information contained within the body of this dictation should be directly addressed to the provider for clarification. Admission and Anticipated Discharge Date Admission Date: February 01, 2024 Supervising Physician Co-Signing Physician Notes Patient seen and examined, chart, medications telemetry reviewed. Assessment and plan as outlined above by advanced provider. Personally endorsed Echocardiogram today with mild to moderate left ventricular hypertrophy and preserved LV systolic function no significant pericardial effusion Paroxysmal atrial fibrillation labile hypertension remain an ongoing issue with this patient Discussed options of management Trial of antiarrhythmic therapy recommended. Amiodarone relatively contraindicated due to significant underlying lung disease Will trial low-dose sotalol for rhythm stability. Discontinue with any progressive worsening QT prolongation Potassium supplemented today Patient agreeable to additional 48 hours on telemetry I spent a total of 20 minutes on the date of service in preparation, delivery, and documentation of the care provided to this patient, excluding any time spent in the performance of separately billed services. Subjective Patient feeling better this morning. Had an episode of hypotension last night, likely vasovagal in setting of BM. BP and symptoms improved with IV fluids. She also had recurrent afib through the night, variable rates, then eventually converting back to paced rhythm This morning she converted back to afib around 6:30 AM. She is resting in chair comfortably. Denies chest pain or SOB. Tolerated pacer procedure yesterday. Wound is bandaged, dry and intact. She notes soreness in the region but "tole rable". Review of Systems Review of Systems: All systems reviewed & are unremarkable except as noted in HPI & below Physical Exam Constitutional: WD/WN, vitals as above + obese; no acute distress Neck: trachea midline, no thyromegaly Respiratory: no respiratory distress Auscultation: + diminished lung sounds; no crackles, no rales and no rhonchi Cardiovascular: Rate/Rhythm: regular rate and regular rhythm Heart Sounds: normal S1 and normal S2; no murmur Vessels: no JVD Extremities: no edema Gastrointestinal (Abdomen): normal bowel sounds, soft, nontender, no hepatosplenomegaly Skin: no rashes, warm and dry Results & Data Vital Signs (Past 12 Hours) Vital Signs Temp Pulse Pulse Resp BP Pulse Ox O2 Del Method 02/03/24 11:01 36.8 C 68 19 177/79 H 93 Nasal Cannula 02/03/24 07:34 88 02/03/24 07:24 36.7 C 70 17 174/82 H 92 Nasal Cannula 02/03/24 04:11 36.7 C 86 19 160/84 H 93 Nasal Cannula 02/03/24 00:35 88 O2 Flow Rate 02/03/24 11:01 4 02/03/24 07:34 02/03/24 07:24 4 02/03/24 04:11 4 02/03/24 00:35 Laboratory Results CBC 02/03/24 Range/Units 05:48 WBC 9.45 (4.8-10.8) K/ul RBC 3.56 L (4.20-5.40) M/uL Hgb 11.2 L (12.0-16.0) g/dl Hct 35.4 L (37.0-47.0) % Plt Count 190 (130-400) K/uL Comprehensive Metabolic Panel 02/03/24 Range/Units 05:48 Sodium 139 (136-145) mmol/L Potassium 3.6 (3.5-5.1) mmol/L Chloride 100 (98-107) mmol/L Carbon Dioxide 31 (21-32) mmol/L BUN 20 (6-23) mg/dl Creatinine 1.04 (0.6-1.2) mg/dl Glucose 113 H (70-99(Fasting)) mg/dl Calcium 9.1 (8.6-10.3) mg/dl Intake and Output 02/02/24 02/03/24 02/03/24 22:59 06:59 14:59 Intake Total 1000 / 1650 650 / 1650 240 / 240 Balance 1000 / 1200 650 / 1200 240 / 240 Intake: IV 1000 / 1000 Sodium Chloride 0.9% 500 ml @ 1000 / 1000 999 mls/hr IV .Q31M ONE Rx#: [id number] Oral 650 / 650 240 / 240 Other: # Unmeasured Voids 1 Weight 101.7 kg Weight Measurement Method Built in [facility] Diagnostic Findings Telemetry reviewed: Currently afib in the 60-80s with intermittent atrial pacing. Current afib episode started around 6:13 AM this morning EKG reviewed from this morning at 6:11 AM: NSR with 1st degree AV block RBBB No acute changes Medications Administered Current Inpatient Medications Acetaminophen (Acetaminophen 325 Mg Tab) 650 mg PO QID PRN PRN Reason: pain/fever Stop: 03/02/24 20:36 Last Admin: 02/03/24 11:31 Dose: 650 mg Amitriptyline HCl (Amitriptyline Hcl 10 Mg Tab) 10 mg PO HS LIAM Stop: 03/02/24 20:59 Last Admin: 02/02/24 20:53 Dose: 10 mg Apixaban (Apixaban 5 Mg Tablet) 5 mg PO BID LIAM Stop: 03/03/24 20:59 Last Admin: 02/03/24 08:00 Dose: 5 mg Artificial Tears (Artificial Tears) 1 drops OP QID PRN PRN Reason: Dryness Stop: 03/02/24 21:11 Aspirin (Aspirin 81 Mg Ectab) 81 mg PO DAILY LIAM Stop: 03/03/24 08:59 Last Admin: 02/03/24 08:00 Dose: 81 mg Atorvastatin Calcium (Atorvastatin 40 Mg Tab) 80 mg PO PM LIAM Stop: 03/02/24 20:59 Last Admin: 02/02/24 20:58 Dose: 80 mg Atropine Sulfate (Atropine Sulfate 0.1 Mg/Ml 10ml Syr) 1 mg IV Q3M PRN PRN Reason: symptomatic bradycardia Dextrose (Dextrose 50% 50 Ml Syringe) 25 - 50 ml IV UD PRN; Protocol PRN Reason: Hypoglycemia Protocol Stop: 03/02/24 23:28 Empagliflozin (Empagliflozin 10 Mg Tab) 10 mg PO DAILY LIAM Stop: 03/04/24 08:59 Last Admin: 02/03/24 08:01 Dose: 10 mg Glucagon (Glucagon For Inj 1 Mg Vial) 1 mg SQ UD PRN; Protocol PRN Reason: Hypoglycemia Protocol Stop: 03/02/24 23:28 Glucose (Glucose 40% Gel 15 Gm Tube) 15 - 30 gm PO UD PRN; Protocol PRN Reason: Hypoglycemia Protocol Stop: 03/02/24 23:28 Glucose (Glucose 10 Tab/Tube) 4 - 8 tab PO UD PRN; Protocol PRN Reason: Hypoglycemia Treatment Stop: 03/02/24 23:28 Promethazine HCl (Phenergan) 6.25 mg in 50.25 mls @ 201 mls/hr IV Q6H PRN PRN Reason: Nausea And Vomiting Stop: 03/02/24 20:36 Magnesium Sulfate/Dextrose (Magnesium Sulfate / D5w) 1 gm in 100 mls @ 50 mls/hr IV Q2H LIAM Stop: 02/03/24 14:29 Last Admin: 02/03/24 10:32 Dose: 50 mls/hr Insulin Aspart (Insulin Aspart Per Unit Charge) 0 units SC ACHS [facility] Stop: 03/03/24 00:00 Last Admin: 02/03/24 12:07 Dose: Not Given Isosorbide Mononitrate (Isosorbide Kaufman Extended Rel 30 Mg Tabcr) 30 mg PO QAM LIAM Stop: 03/03/24 08:59 Last Admin: 02/03/24 08:00 Dose: 30 mg Magnesium Oxide (Magnesium Oxide 400 Mg Tab) 400 mg PO BID LIAM Stop: 03/04/24 20:59 Miscellaneous (Carbohydrates For Hypoglycemia ) 15 - 30 gm PO UD PRN PRN Reason: Hypoglycemia Protocol Stop: 03/02/24 23:28 Multivitamins (Multivitamin Tab) 1 tab PO DAILY LIAM Stop: 03/03/24 08:59 Last Admin: 02/03/24 08:00 Dose: 1 tab Pantoprazole Sodium (Pantoprazole 40 Mg Tab) 40 mg PO BIDM LIAM Stop: 03/03/24 07:59 Last Admin: 02/03/24 08:00 Dose: 40 mg Pregabalin (Pregabalin 25 Mg Cap) 25 mg PO BID LIAM Stop: 03/02/24 20:59 Last Admin: 02/03/24 08:07 Dose: 25 mg Sotalol HCl (Sotalol Hcl 80 Mg Tab) 40 mg PO BID LIAM Stop: 03/04/24 12:14 Tramadol HCl (Tramadol Hcl 50 Mg Tablet) 25 - 50 mg PO Q4H PRN PRN Reason: Pain Stop: 03/02/24 20:36
[2024-02-03] MEDS: SOTALOL HCL 80 MG TAB PO SCH (12:58)
--- NOTE | 2024-02-03 14:02 | Hospitalist Progress Note ---
Date of Service February 03, 2024 Assessment & Plan (1) Acute on chronic respiratory failure with hypoxia and hypercapnia: Plan Pt is a 73yoF with PMHx significant for chronic diastolic heart failure (EF 55 to 60%, TTE 2023), CAD, A-fib on Eliquis, PSVT, valvular heart disease (trace MR, mild MR), CVA, PVD status post surgery, hypertension, hyperlipidemia, chronic respiratory failure secondary to COPD on home O2, pulmonary nodules, NAFLD, DM2 on oral medications, chronic anemia (baseline hemoglobin of 11), past tobacco abuse who was sent in for further evaluation for an abnormal Zio patch. Tachybradycardia syndrome was noted as well as sinus pauses on outpatient Zio patch. Tachybradycardia syndrome Sinus pauses Noted on home heart monitoring with Zio patch Advised to present for further evaluation by cardiology s/p PPM on 02/02/24 Pt with episode of hypotension and dizziness afterwards requiring fluid bolus of 1L Resume home eliquis Continue to monitor on telemetry Cardiology consulted, appreciate recs -started on sotalol CHF Chest xray was concerning for acute decompensation Pt received IV lasix 20mg on admission Currently hypotensive post procedure, given 1L of fluids Cardiology consulted, appreciate recs Chronic respiratory failure secondary to COPD on home O2 Hyperlipidemia continue statin Rx DMII on oral medications well-controlled as of recent hemoglobin A1c of 6.07 November 2023 Basal/bolus per protocol chronic anemia hemoglobin at baseline Diet: DMII/HH DVT prophylaxis. SCDs while Eliquis on hold Full code Dispo: PCU/tele, PT/OT once medically stable Admission and Anticipated Discharge Date Admission Date: February 01, 2024 Subjective Patient was seen laying in bed. States her dizziness has improved. denied any acute concerns at that time. Review of Systems Review of Systems: All systems reviewed & are unremarkable except as noted in Subjective Physical Exam Physical Exam: General: Alert, oriented. No acute distress Psych: Appropriate mood and affect Neuro: No gross deficits while laying in bed HEENT: NC/AT CV: RRR Resp: no increased effort of breathing Abdomen: Soft Extremities: Trace edema in lower extremities bilaterally. Results & Data Results & Data Vital Signs (Past 12 Hours) Vital Signs Temp Pulse Pulse Resp BP Pulse Ox O2 Del Method 02/03/24 11:01 36.8 C 68 19 177/79 H 93 Nasal Cannula 02/03/24 07:34 88 02/03/24 07:24 36.7 C 70 17 174/82 H 92 Nasal Cannula 02/03/24 04:11 36.7 C 86 19 160/84 H 93 Nasal Cannula O2 Flow Rate 02/03/24 11:01 4 02/03/24 07:34 02/03/24 07:24 4 02/03/24 04:11 4
[2024-02-03] MEDS: POTASSIUM CHLORIDE CRTAB 20 MEQ TABCR PO ONE (14:42)
--- NOTE | 2024-02-03 16:31 | Electrocardiogram Report ---
Test Reason : Blood Pressure : */* mmHG Vent. Rate : 87 BPM Atrial Rate : 87 BPM P-R Int : 232 ms QRS Dur : 132 ms QT Int : 450 ms P-R-T Axes : 63 48 -5 degrees QTcB Int : 541 ms Sinus rhythm with 1st degree A-V block Right bundle branch block T wave abnormality, consider anterior ischemia Abnormal ECG Confirmed by Red Estevez ([id number]) on 02/03/2024 4:30:54 PM Referred By: Enrico De La Torre Confirmed By: Red Estevez
--- NOTE | 2024-02-03 16:45 | Electrocardiogram Report ---
Test Reason : Blood Pressure : */* mmHG Vent. Rate : 76 BPM Atrial Rate : 82 BPM P-R Int : * ms QRS Dur : 136 ms QT Int : 496 ms P-R-T Axes : * 152 216 degrees QTcB Int : 558 ms Poor data quality, interpretation may be adversely affected Suspect arm lead reversal, interpretation assumes no reversal Atrial fibrillation with occasional ventricular-paced complexes Right bundle branch block Left posterior fascicular block Bifascicular block T wave abnormality, consider inferior ischemia Abnormal ECG When compared with ECG of 01-Feb-2024 18:51, Electronic ventricular pacemaker has replaced Sinus rhythm Confirmed by Red Estevez ([id number]) on 02/03/2024 4:44:50 PM Referred By: Enrico De La Torre Confirmed By: Red Estevez
--- NOTE | 2024-02-03 20:23 | Communication Note ---
Date of Service: February 03, 2024 Patient with SOB and substernal tightness going to the back. Uncontrolled BP since a.m. SBP 1 60-210s. O2 sats 94 on 6 L as per RN. Chest x-ray : Cardiomegaly, pulmonary congestion EKG as per my interpretation : Rate 95, paced rhythm SOB and substernal tightness relieved by Lasix, nitro, and neb treatment as per patient. PPE Obese, no respiratory distress Decreased breath sounds Troponin 1068 AP Hypoxemic respiratory failure secondary to CHF Hypertensive crisis Chest pain, troponin secondary to above Supplemental O2 Add amlodipine to regimen Additional diuretic Rx as per cardiology Trend troponin
[2024-02-03] MEDS: traMADol HCL 50 MG TABLET PO PRN (20:33)
[2024-02-03] MEDS: MAGNESIUM OXIDE 400 MG TAB PO SCH (20:37)
[2024-02-03] MEDS: amLODIPine BESYLATE 5 MG TAB PO SCH (20:50)
[2024-02-03] MEDS ORDERED: IPRATROPIUM BROMIDE NASAL SPRAY 0.06% 15ML NAE PRN (21:44)
[2024-02-03 23:04] LABS: Base Excess VBG 4.3 mEq/L; HCO3 VBG 32 mmol/L; Oxygen Saturation VBG 82.7 %; PCO2 VBG 57 mmHg (38-50); PO2 VBG 51 mmHg; pH VBG 7.35 (7.36-7.41)
[2024-02-03] MEDS: NITROGLYCERIN SL 0.4 MG/TAB TAB SL STA (23:04)
[2024-02-03] MEDS: LORATADINE 10 MG TAB PO ONE (23:05)
[2024-02-03] MEDS: FUROSEMIDE 40 MG/4 ML VIAL IV ONE (23:07)
[2024-02-03] MEDS: MAGNESIUM SULFATE / D5W 1 GM/100 ML BAG IV ONE (23:14)
[2024-02-03] MEDS: POTASSIUM CHLORIDE PWD 20 MEQ PACK PO STA (23:31)
[2024-02-03] MEDS: hydrALAZINE HCL 20 MG/ML VIAL IV STA (23:36)
[2024-02-03] MEDS: DOCUSATE SODIUM/SENNA 50/8.6MG TAB PO SCH (23:40)
[2024-02-04 00:17] LABS: Partial Thromboplastin Ratio 1.2; Partial Thromboplastin Time 32 Seconds (21-31)
[2024-02-04] MEDS: amLODIPine BESYLATE 5 MG TAB PO STA (01:25)
[2024-02-04] MEDS: POTASSIUM CHLORIDE CRTAB 20 MEQ TABCR PO STA (01:31)
[2024-02-04 05:54] LABS: Base Excess VBG 7.6 mEq/L; HCO3 VBG 35 mmol/L; Oxygen Saturation VBG 92.8 %; PCO2 VBG 57 mmHg (38-50); PO2 VBG 63 mmHg; pH VBG 7.39 (7.36-7.41)
[2024-02-04 05:58] LABS: Hematocrit (blood only) 32.6 % (37.0-47.0); Mean Corpuscular Hgb Conc 33.7 g/dL (32.0-36.0); Mean Corpuscular Volume 94.8 fL (80.0-100.0); Mean Platelet Volume 9.7 fL (9.4-12.4); Platelet Count 195 K/uL (130-400); RDW Coefficient of Variation 15.1 % (11.5-14.5); RDW Standard Deviation 51.3 fL (36.4-46.3); Red Blood Count 3.44 M/uL (4.20-5.40); White Blood Count 10.04 K/ul (4.8-10.8)
[2024-02-04 06:16] LABS: BUN Creatinine Ratio 18.7 (10-20); Calcium 9.2 mg/dl (8.6-10.3); Creatinine Clr Calc Pharmacy 53.7 ml/min; Magnesium 2.1 mg/dl (1.7-2.4); Potassium 3.9 mmol/L (3.5-5.1)
[2024-02-04 06:24] LABS: Troponin I High Sensitivity 867.4 pg/ml (0-14)
[2024-02-04 06:28] LABS: Partial Thromboplastin Time 28 Seconds (21-31)
--- NOTE | 2024-02-04 07:01 | XRay Report ---
XR chest 1V portable HISTORY: 73 years-old Female sob acute shortness of breath COMPARISON: 02/02/2024 TECHNIQUE: AP view of the chest FINDINGS: Cardiac silhouette is enlarged. Left subclavian dual lead pacer. Pulmonary vascular congestion with i nterstitial coarsening. Small pleural effusions with progressive bibasilar consolidation including a 3 cm round focus projected over the right lung base. IMPRESSION: 1. Cardiomegaly with progressive pulmonary edema. 2. Small pleural effusions with worsening bibasilar consolidation which may represent atelectasis dai tiffany pneumonitis. ACT 112: Negative or not required by law. The above report was generated using voice recognition software. It may contain grammatical, syntax o r spelling errors. Electronically signed by: Magan Coleman M.D. 02/04/2024 7:00 AM
--- NOTE | 2024-02-04 10:34 | Electrocardiogram Report ---
Test Reason : Blood Pressure : */* mmHG Vent. Rate : 64 BPM Atrial Rate : 340 BPM P-R Int : * ms QRS Dur : 162 ms QT Int : 512 ms P-R-T Axes : * 0 -54 degrees QTcB Int : 528 ms Ventricular-paced rhythm Abnormal ECG When compared with ECG of 03-Feb-2024 06:11, Electronic ventricular pacemaker has replaced Sinus rhythm Confirmed by Red Estevez ([id number]) on 02/04/2024 10:34:36 AM Referred By: Enrico De La Torre Confirmed By: Red Estevez
--- NOTE | 2024-02-04 10:42 | Electrocardiogram Report ---
Test Reason : Blood Pressure : */* mmHG Vent. Rate : 91 BPM Atrial Rate : 91 BPM P-R Int : 224 ms QRS Dur : 126 ms QT Int : 432 ms P-R-T Axes : 74 48 13 degrees QTcB Int : 531 ms Sinus rhythm with 1st degree A-V block Right bundle branch block Abnormal ECG When compared with ECG of 03-Feb-2024 22:46, (unconfirmed) Sinus rhythm has replaced Electronic ventricular pacemaker Confirmed by Red Estevez ([id number]) on 02/04/2024 10:42:27 AM Referred By: Enrico De La Torre Confirmed By: Red Estevez
--- NOTE | 2024-02-04 10:45 | Electrocardiogram Report ---
Test Reason : Blood Pressure : */* mmHG Vent. Rate : 97 BPM Atrial Rate : 97 BPM P-R Int : 152 ms QRS Dur : 138 ms QT Int : 356 ms P-R-T Axes : 72 139 235 degrees QTcB Int : 452 ms Atrial-sensed ventricular-paced rhythm Abnormal ECG When compared with ECG of 03-Feb-2024 15:09, (unconfirmed) Vent. rate has increased by 33 bpm Confirmed by Red Estevez ([id number]) on 02/04/2024 10:45:39 AM Referred By: Enrico De La Torre Confirmed By: Red Estevez
[2024-02-04] MEDS: lisinopril 5 MG TAB PO SCH (12:19)
--- NOTE | 2024-02-04 12:37 | Cardiology Progress Note ---
Date of Service February 04, 2024 Assessment & Plan (1) Tachy-maribel syndrome: (2) Sinus pause: (3) Paroxysmal A-fib: (4) S/P cardiac pacemaker procedure: Plan 02/02/24 Patient with evidence of tachybrady syndrome with multiple symptomatic conversion pauses on outpatient ZIO. Past syncope/near syncope. Recommend dual chamber pacemaker. Risks/benefits discussed with patient. She is agreeable to proceeding. Keep NPO for procedure today with Dr. Barcenas Currently beta lacy on hold. Transition to metoprolol after pacemaker. (Taking Atenolol 50 mg [employer]ING [employer]ER) eliquis on hold. Resume after procedure for PAF. SOB and wheezing noted on admission. Treated with nebs and dose of IV lasix. Hypokalemia this morning - supplemented and recheck BMP and magnesium. Currently patient appears euvolemic. Known chronic respiratory failure with hypoxia. Continue supplemental O2. 02/03/24: last night patient had hypotensive episode, likely vasovagal in setting of volume depeletion. Improved with IV fluids. No recurrent symptoms this morning. BP now hypertensive. She has had several episodes of PAF since admission. Recommend initiation of low dose sotalol 40 mg BID. Maintain telemetry. Monitor QT interval with EKG's. ordered for tonight and AM. Patient is agreeable to staying for ongoing antiarrhythmic load. 02/04/24: Last night patient had an episode of sudden onset dyspnea, hypertension, in setting of afib RVR. Started on amlodipine for hypertension. Chest xray completed and given dose of IV lasix and nebulizer treatment. Elevated troponin noted but she has no symptoms of ACS at this time. Possibly due to recent pacemaker insertion. EKG was intermittent ventricular pacing at the time. Currently she is asymptomatic. Resume sotalol this morning for PAF. Monitor QT intervals. Repeat EKG several hours after AM dose. BP remains high. Resume oral lisinopril 5 mg - (dose prior to admission). Titrate as needed. Case discussed with Dr. Bustamante Will follow. I spent a total of 30 minutes on the date of service in preparation, delivery, and documentation of the care provided to this patient, excluding any time spent in the performance of separately billed services. Naya Kiser PA-C Department of Cardiology, [facility] This chart was completed in part utilizing Speech Voice Recognition Software. Grammatical errors, random word insertions, pronoun errors, and incomplete sentences are an occasional consequence of this system due to software limitations, ambient noise, and hardware issues. Any formal questions or concerns about the content, text, or information contained within the body of this dictation should be directly addressed to the provider for clarification. Admission and Anticipated Discharge Date Admission Date: February 01, 2024 Supervising Physician Co-Signing Physician Notes Patient seen and examined, chart, medications telemetry reviewed. Assessment and plan as outlined above by advanced provider. Personally endorsed Assessment and plan as outlined above. Does not appear to tolerate atrial fibrillation well when it occurs. Will attempt to continue sotalol though QT interval remains prolonged If issues remain persistent may need to consider AV junction ablation Will treat hypertension, resume lisinopril I spent a total of 20 minutes on the date of service in preparation, delivery, and documentation of the care provided to this patient, excluding any time spent in the performance of separately billed services. Subjective Patient resting in bed comfortably. Last night patient developed recurrent afib with RVR and became hypertensive. Hospitalist evaluated patient and performed chest xray. Concerns for volume overload and she was treated with IV lasix, nitro and nebulizer. Troponin increased to 1068 and 867 this morning. She denied chest pain last night or recurrent chest pain this morning. She remains hypertensive. She reprots her lisinopril was held due to dizziness as an outpatient several weeks ago and has not been restarted. Last night amlodipine was added. No significant pain from pacer site. Currently resting comfortably Review of Systems Review of Systems: All systems reviewed & are unremarkable except as noted in HPI & below Physical Exam Constitutional: WD/WN, vitals as above + obese; no acute distress Neck: trachea midline, no thyromegaly Respiratory: no respiratory distress Auscultation: + diminished lung sounds; no crackles, no rales and no rhonchi Cardiovascular: Rate/Rhythm: + tachycardic and + irregularly irregular Heart Sounds: normal S1 and normal S2; no murmur Vessels: no JVD Extremities: no edema Gastrointestinal (Abdomen): normal bowel sounds, soft, nontender, no hepatosplenomegaly Skin: no rashes, warm and dry Results & Data Vital Signs (Past 12 Hours) Vital Signs Temp Pulse Pulse Resp BP Pulse Ox O2 Del Method 02/04/24 11:37 95 H 20 168/90 H 94 Nasal Cannula 02/04/24 07:36 Nasal Cannula 02/04/24 07:24 36.7 C 90 20 177/107 H 90 Nasal Cannula 02/04/24 07:14 94 H 02/04/24 06:46 91 Nasal Cannula 02/04/24 03:35 63 02/04/24 02:57 37.0 C 91 H 18 165/91 H 93 Nasal Cannula O2 Flow Rate 02/04/24 11:37 6 02/04/24 07:36 6 02/04/24 07:24 6 02/04/24 07:14 02/04/24 06:46 6 02/04/24 03:35 02/04/24 02:57 8 Laboratory Results Cardiac Enzymes 02/03/24 02/04/24 Range/Units 22:53 05:40 Troponin I High Sens 1068.6 H* D 867.4 H* (0-14) pg/ml Coagulation 02/03/24 02/04/24 Range/Units 22:53 05:40 APTT 32 H 28 (21-31) Seconds CBC 02/04/24 Range/Units 05:40 WBC 10.04 (4.8-10.8) K/ul RBC 3.44 L (4.20-5.40) M/uL Hgb 11.0 L (12.0-16.0) g/dl Hct 32.6 L (37.0-47.0) % Plt Count 195 (130-400) K/uL Comprehensive Metabolic Panel 02/04/24 Range/Units 05:40 Sodium 137 (136-145) mmol/L Potassium 3.9 (3.5-5.1) mmol/L Chloride 96 L (98-107) mmol/L Carbon Dioxide 33 H (21-32) mmol/L BUN 20 (6-23) mg/dl Creatinine 1.07 (0.6-1.2) mg/dl Glucose 116 H (70-99(Fasting)) mg/dl Calcium 9.2 (8.6-10.3) mg/dl Intake and Output 02/03/24 02/04/24 02/04/24 22:59 06:59 14:59 Intake Total 100 / 870 Output Total 2300 / 2300 Balance -2200 / -1430 Intake: IV 100 / 300 Magnesium Sulfate / D5w 1 gm In 100 / 100 100 ml @ 50 mls/hr IV ONE ONE Rx#:[id number] Output: Urine 2300 / 2300 Other: # Unmeasured Voids 3 Weight 102.3 kg Weight Measurement Method Built in [facility] Diagnostic Findings Telemetry reviewed: Atrial fibrillation with RVR This morning around 100-120, intermittent pacing. She continues to convert from atrial pacing to afib overnight. EKG reviewed from this morning at 6:45: appears to be atrial flutter with 2:1 AV block RBBB QT/QTc 432/531 ms EKG reviewed from last evening 02/03/24: atrial sensed ventricular paced rhythm Medications Administered Current Inpatient Medications Acetaminophen (Acetaminophen 325 Mg Tab) 650 mg PO QID PRN PRN Reason: pain/fever Stop: 03/02/24 20:36 Last Admin: 02/04/24 00:17 Dose: 650 mg Amitriptyline HCl (Amitriptyline Hcl 10 Mg Tab) 10 mg PO HS LIAM Stop: 03/02/24 20:59 Last Admin: 02/03/24 20:35 Dose: 10 mg Amlodipine Besylate (Amlodipine Besylate 5 Mg Tab) 5 mg PO HS LIAM Stop: 03/05/24 20:59 Apixaban (Apixaban 5 Mg Tablet) 5 mg PO BID LIAM Stop: 03/03/24 20:59 Last Admin: 02/04/24 08:48 Dose: 5 mg Artificial Tears (Artificial Tears) 1 drops OP QID PRN PRN Reason: Dryness Stop: 03/02/24 21:11 Aspirin (Aspirin 81 Mg Ectab) 81 mg PO DAILY LIAM Stop: 03/03/24 08:59 Last Admin: 02/04/24 08:48 Dose: 81 mg Atorvastatin Calcium (Atorvastatin 40 Mg Tab) 80 mg PO PM LIAM Stop: 03/02/24 20:59 Last Admin: 02/03/24 20:37 Dose: 80 mg Atropine Sulfate (Atropine Sulfate 0.1 Mg/Ml 10ml Syr) 1 mg IV Q3M PRN PRN Reason: symptomatic bradycardia Dextrose (Dextrose 50% 50 Ml Syringe) 25 - 50 ml IV UD PRN; Protocol PRN Reason: Hypoglycemia Protocol Stop: 03/02/24 23:28 Empagliflozin (Empagliflozin 10 Mg Tab) 10 mg PO DAILY LIAM Stop: 03/04/24 08:59 Last Admin: 02/04/24 08:49 Dose: 10 mg Glucagon (Glucagon For Inj 1 Mg Vial) 1 mg SQ UD PRN; Protocol PRN Reason: Hypoglycemia Protocol Stop: 03/02/24 23:28 Glucose (Glucose 40% Gel 15 Gm Tube) 15 - 30 gm PO UD PRN; Protocol PRN Reason: Hypoglycemia Protocol Stop: 03/02/24 23:28 Glucose (Glucose 10 Tab/Tube) 4 - 8 tab PO UD PRN; Protocol PRN Reason: Hypoglycemia Treatment Stop: 03/02/24 23:28 Promethazine HCl (Phenergan) 6.25 mg in 50.25 mls @ 201 mls/hr IV Q6H PRN PRN Reason: Nausea And Vomiting Stop: 03/02/24 20:36 Insulin Aspart (Insulin Aspart Per Unit Charge) 0 units SC ACHS [facility] Stop: 03/03/24 00:00 Last Admin: 02/04/24 12:18 Dose: Not Given Ipratropium Susan (Ipratropium Susan Nasal [place] 0.06% 15ml) 1 sprays BRENNA QID PRN PRN Reason: Nasal Congestion Stop: 03/04/24 21:43 Isosorbide Mononitrate (Isosorbide [place] Extended Rel 30 Mg Tabcr) 30 mg PO QAM [facility] Stop: 03/03/24 08:59 Last Admin: 02/04/24 08:48 Dose: 30 mg Lisinopril (Lisinopril 5 Mg Tab) 5 mg PO QAM [facility] Stop: 03/05/24 11:29 Last Admin: 02/04/24 12:19 Dose: 5 mg Magnesium Oxide (Magnesium Oxide 400 Mg Tab) 400 mg PO BID [facility] Stop: 03/04/24 20:59 Last Admin: 02/04/24 08:48 Dose: 400 mg Miscellaneous (Carbohydrates For Hypoglycemia ) 15 - 30 gm PO UD PRN PRN Reason: Hypoglycemia Protocol Stop: 03/02/24 23:28 Multivitamins (Multivitamin Tab) 1 tab PO DAILY [facility] Stop: 03/03/24 08:59 Last Admin: 02/04/24 08:48 Dose: 1 tab Pantoprazole Sodium (Pantoprazole 40 Mg Tab) 40 mg PO BIDM [facility] Stop: 03/03/24 07:59 Last Admin: 02/04/24 08:48 Dose: 40 mg Pregabalin (Pregabalin 25 Mg Cap) 25 mg PO BID [facility] Stop: 03/02/24 20:59 Last Admin: 02/04/24 08:54 Dose: 25 mg Senna/Docusate Sodium (Docusate Sodium/Senna 50/8.6mg Tab) 1 tab PO QAM [facility] Stop: 03/04/24 21:29 Last Admin: 02/04/24 08:54 Dose: Not Given Sotalol HCl (Sotalol Hcl 80 Mg Tab) 40 mg PO BID [facility] Stop: 03/04/24 12:14 Last Admin: 02/04/24 10:13 Dose: 40 mg Tramadol HCl (Tramadol Hcl 50 Mg Tablet) 25 - 50 mg PO Q4H PRN PRN Reason: Pain Stop: 03/02/24 20:36 Last Admin: 02/04/24 06:22 Dose: 50 mg
--- NOTE | 2024-02-04 13:11 | Hospitalist Progress Note ---
Date of Service February 04, 2024 Assessment & Plan (1) Acute on chronic respiratory failure with hypoxia and hypercapnia: Plan Pt is a 73yoF with PMHx significant for chronic diastolic heart failure (EF 55 to 60%, TTE 2023), CAD, A-fib on Eliquis, PSVT, valvular heart disease (trace MR, mild MR), CVA, PVD status post surgery, hypertension, hyperlipidemia, chronic respiratory failure secondary to COPD on home O2, pulmonary nodules, NAFLD, DM2 on oral medications, chronic anemia (baseline hemoglobin of 11), past tobacco abuse who was sent in for further evaluation for an abnormal Zio patch. Tachybradycardia syndrome was noted as well as sinus pauses on outpatient Zio patch. Tachybradycardia syndrome Sinus pauses s/p PPM on 02/02/24 Noted on home heart monitoring with Zio patch Advised to present for further evaluation by cardiology s/p PPM on 02/02/24 Pt with episode of hypotension and dizziness afterwards requiring fluid bolus of 1L Resume home eliquis Continue to monitor on telemetry Cardiology consulted, appreciate recs -s/p PPM on 02/02/24 -started on sotalol Hypertensive Urgency Patient with episode of hypertensive urgency overnight as well as shortness of breath Chest x-ray noting progressive pulmonary edema, possible pneumonitis Trop drawn at that time were elevated at 1068.6 before downtrending to 867.4 Patient was given as needed hydralazine and started on p.o. amlodipine Continue with amlodipine 5 mg daily and patient's home lisinopril 5 mg resumed by cardiology for hypertension Pulmonary edema Chest xray was concerning for fluid overload on admission Pt received IV lasix 20mg on admission overnight Was later hypotensive post pacemaker placement and was given 1L of fluids Echo obtained at that time noted EF of 50 to 55%, mild left ventricular hypertrophy, normal right ventricle, moderate mitral annular calcification, no mitral valve stenosis, and trivial posterior pericardial effusion Patient with chest x-ray obtained on noting progressive pulmonary edema as noted above and received IV Lasix 40 mg overnight Cardiology on board as above, appreciate recs Chronic respiratory failure secondary to COPD on home O2 Hyperlipidemia continue statin Rx DMII on oral medications well-controlled as of recent hemoglobin A1c of 6.07 November 2023 Basal/bolus per protocol chronic anemia hemoglobin at baseline Diet: DMII/HH DVT prophylaxis. SCDs while Eliquis on hold Full code Dispo: PCU/tele, PT/OT recommending return to prior living situation Admission and Anticipated Discharge Date Admission Date: February 01, 2024 Subjective Patient was seen in the morning. States that overnight she had some back pain, adamantly denies having any chest pain or shortness of breath at that time. States that back pain is chronic and she does follow with a chiropractor for it, got as needed pain meds overnight. Review of Systems Review of Systems: All systems reviewed & are unremarkable except as noted in Subjective Physical Exam Physical Exam: General: Alert, oriented. No acute distress Psych: Appropriate mood and affect Neuro:difficulty with movements in the bed HEENT: NC/AT CV: Irregular Resp: no increased effort of breathing Abdomen: Soft Extremities: Trace edema in lower extremities bilaterally. Results & Data Results & Data Vital Signs (Past 12 Hours) Vital Signs Temp Pulse Pulse Resp BP Pulse Ox O2 Del Method 02/04/24 11:37 95 H 20 168/90 H 94 Nasal Cannula 02/04/24 07:36 Nasal Cannula 02/04/24 07:24 36.7 C 90 20 177/107 H 90 Nasal Cannula 02/04/24 07:14 94 H 02/04/24 06:46 91 Nasal Cannula 02/04/24 03:35 63 02/04/24 02:57 37.0 C 91 H 18 165/91 H 93 Nasal Cannula O2 Flow Rate 02/04/24 11:37 6 02/04/24 07:36 6 02/04/24 07:24 6 02/04/24 07:14 02/04/24 06:46 6 02/04/24 03:35 02/04/24 02:57 8 Diagnostic Findings Chest X-Ray 02/01/24 18:49 XR chest 1V portable CLINICAL HISTORY: Dysrhythmia. COMPARISON STUDY: Chest radiograph November 26, 2023. FINDINGS: There is no pneumothorax. Small bilateral pleural effusions are present. There are associated bibasilar opacities which favor atelectasis. Cardiomegaly is again noted. Interstitial thickening represents mild pulmonary edema. Right lung airspace opacity shown on prior exam have improved. IMPRESSION: Cardiomegaly with interstitial pulmonary edema and small bilateral pleural effusions and associated bibasilar opacities which favor atelectasis. ACT 112: Negative or not required by law. Electronically signed by: Nima Kelly M.D. 02/02/2024 6:41 AM Chest X-Ray 02/02/24 17:00 SINGLE VIEW CHEST CLINICAL HISTORY: Pacemaker implantation. FINDINGS: An AP, portable, upright chest radiograph is compared to study dated 02/01/2024. A 2-lead cardiac pacemaker is new from 02/01/2024. Leads project over the right atrial appendage and right ventricle. The heart is enlarged noting atherosclerotic calcification of the thoracic aorta. There is pulmonary vascular congestion with mild interstitial edema. There are small pleural effusions with dependent atelectasis. No pneumothorax is seen. The skeletal structures are osteopenic. The bony thorax is grossly intact. IMPRESSION: 1. A 2-lead cardiac pacemaker has been implanted as above. No pneumothorax is seen post procedure. 2. Cardiomegaly with evidence of congestive failure and mild pulmonary edema. 3. Small pleural effusions. ACT 112: Negative or not required by law. Electronically signed by: Tomy Jack M.D. 02/02/2024 5:06 PM Chest X-Ray 02/03/24 22:46 XR chest 1V portable HISTORY: 73 years-old Female sob acute shortness of breath COMPARISON: 02/02/2024 TECHNIQUE: AP view of the chest FINDINGS: Cardiac silhouette is enlarged. Left subclavian dual lead pacer. Pulmonary vascular congestion with interstitial coarsening. Small pleural effusions with progressive bibasilar consolidation including a 3 cm round focus projected over the right lung base. IMPRESSION: 1. Cardiomegaly with progressive pulmonary edema. 2. Small pleural effusions with worsening bibasilar consolidation which may represent atelectasis versus pneumonitis. ACT 112: Negative or not required by law. The above report was generated using voice recognition software. It may contain grammatical, syntax or spelling errors. Electronically signed by: Magan Coleman M.D. 02/04/2024 7:00 AM
--- NOTE | 2024-02-04 18:47 | Electrocardiogram Report ---
Test Reason : Blood Pressure : */* mmHG Vent. Rate : 78 BPM Atrial Rate : 78 BPM P-R Int : 208 ms QRS Dur : 128 ms QT Int : 488 ms P-R-T Axes : 61 26 -12 degrees QTcB Int : 556 ms Normal sinus rhythm Right bundle branch block Abnormal ECG When compared with ECG of 04-Feb-2024 06:45, T wave inversion more evident in Anterior leads Confirmed by Red Estevez ([id number] on 02/04/2024 6:46:40 PM Referred By: Enrico De La Torre Confirmed By: Red Estevez
[2024-02-04] MEDS: amLODIPine BESYLATE 5 MG TAB PO SCH (20:55)
[2024-02-05 07:22] LABS: Hematocrit (blood only) 32.4 % (37.0-47.0); Hemoglobin 10.6 g/dl (12.0-16.0); Mean Corpuscular Hemoglobin 31.9 pg (25.0-34.0); Mean Corpuscular Hgb Conc 32.7 g/dL (32.0-36.0); Mean Corpuscular Volume 97.6 fL (80.0-100.0); Mean Platelet Volume 10.2 fL (9.4-12.4); Platelet Count 200 K/uL (130-400); RDW Coefficient of Variation 15.3 % (11.5-14.5); RDW Standard Deviation 53.9 fL (36.4-46.3); Red Blood Count 3.32 M/uL (4.20-5.40); White Blood Count 7.25 K/ul (4.8-10.8)
[2024-02-05 07:38] LABS: BUN Creatinine Ratio 24.2 (10-20); Calcium 9.2 mg/dl (8.6-10.3); Creatinine Clr Calc Pharmacy 47.9 ml/min; Magnesium 2.2 mg/dl (1.7-2.4); Phosphorus 4.6 mg/dl (2.5-4.9)
--- NOTE | 2024-02-05 11:08 | Cardiology Progress Note ---
<Statement entered by Regine Barcenas, - 02/05/24 11:57> I have reviewed the advanced practitioner's documentation and agree with the plan of care. I accept the responsibility for the associated risk. Pt seen in cardiology f/u due to TBS s/p ppm and pAF Pt is back in AF today and has been most of the night; with moderate ventricular rates She was seen today sitting in the chair asymptomatic I recommend stopping sotalol for it is at such a low dose we are really not getting anti-arrhythmic effects Would rather try higher doses of AVN blockers now that we have her pacemaker in place; so would start diltiazem 120mg to be given mid day around noon and then toprol 25mg BID continue eliquis hold off on any AVN ablations at this juncture Would have her start getting up and moving today into tomorrow and if she does ok then would try to discharge tomorrow I will get her in to be seen in my office in 1-2 weeks post discharge I discussed the case and my recommendations with the hospitalist over tiger text and she agreed with my plan Date of Service February 05, 2024 Assessment & Plan (1) Tachy-maribel syndrome: (2) Sinus pause: (3) Paroxysmal A-fib: (4) S/P cardiac pacemaker procedure: Plan 02/02/24 Patient with evidence of tachybrady syndrome with multiple symptomatic conversion pauses on outpatient ZIO. Past syncope/near syncope. Recommend dual chamber pacemaker. Risks/benefits discussed with patient. She is agreeable to proceeding. Keep NPO for procedure today with Dr. Barcenas Currently beta lacy on hold. Transition to metoprolol after pacemaker. 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 Resume after procedure for PAF. SOB and wheezing noted on admission. Treated with nebs and dose of IV lasix. Hypokalemia this morning - supplemented and recheck BMP and magnesium. Currently patient appears euvolemic. Known chronic respiratory failure with hypoxia. Continue supplemental O2. 02/03/24: last night patient had hypotensive episode, likely vasovagal in setting of volume depletion. Improved with IV fluids. No recurrent symptoms this morning. BP now hypertensive. She has had several episodes of PAF since admission. Recommend initiation of low dose sotalol 40 mg BID. Maintain telemetry. Monitor QT interval with EKG's. ordered for tonight and AM. Patient is agreeable to staying for ongoing antiarrhythmic load. 02/04/24: Last night patient had an episode of sudden onset dyspnea, hypertension, in setting of afib RVR. Started on amlodipine for hypertension. Chest xray completed and given dose of IV lasix and nebulizer treatment. Elevated troponin noted but she has no symptoms of ACS at this time. Possibly due to recent pacemaker insertion. EKG was intermittent ventricular pacing at the time. Currently she is asymptomatic. Resume sotalol this morning for PAF. Monitor QT intervals. Repeat EKG several hours after AM dose. BP remains high. Resume oral lisinopril 5 mg - (dose prior to admission). Titrate as needed. 02/05/24: Patient remains in afib overnight despite multiple doses of sotalol. QT prolongation a concern. Will stop sotalol. Transition to diltiazem 120 mg daily with metoprolol succinate 25 mg BID. Attempt at rate control strategy. If patient has ongoing symptoms with the afib, or rates are difficult to control, consider future AV node ablation. BP improved. Stop amlodipine with initiation of other CCB - Diltazem. Continue lisinopril for BP. Case discussed with Dr. Barcenas. Will follow. I spent a total of 35 minutes on the date of service in preparation, delivery, and documentation of the care provided to this patient, excluding any time spent in the performance of separately billed services. Naya Kiser PA-C Department of Cardiology, [facility] This chart was completed in part utilizing Speech Voice Recognition Software. Grammatical errors, random word insertions, pronoun errors, and incomplete sentences are an occasional consequence of this system due to software limitations, ambient noise, and hardware issues. Any formal questions or concerns about the content, text, or information contained within the body of this dictation should be directly addressed to the provider for clarification. Admission and Anticipated Discharge Date Admission Date: February 01, 2024 Subjective Patient seen today. She denies acute cardiac complaints. No sense of palpitations or tachypalpitations. SOB at baseline. no chest pain. No dizziness. BP trending down. Remains in atrial fibrillation since yesterday. QT/QTc remains prolonged with sotalol. Review of Systems Review of Systems: All systems reviewed & are unremarkable except as noted in HPI & below Physical Exam Constitutional: WD/WN, vitals as above + obese; no acute distress Neck: trachea midline, no thyromegaly Respiratory: no respiratory distress Auscultation: + diminished lung sounds; no crackles, no rales and no rhonchi Cardiovascular: Rate/Rhythm: + tachycardic and + irregularly irregular Heart Sounds: normal S1 and normal S2; no murmur Vessels: no JVD Extremities: no edema Gastrointestinal (Abdomen): normal bowel sounds, soft, nontender, no hepatosplenomegaly Skin: no rashes, warm and dry Results & Data Vital Signs (Past 12 Hours) Vital Signs Temp Pulse Resp BP Pulse Ox Pulse Ox O2 Del Method 02/05/24 07:22 36.8 C 71 19 127/80 96 High Flow Nasal Cannula 02/05/24 03:45 36.6 C 66 18 119/74 95 Nasal Cannula 02/04/24 23:09 36.6 C 65 18 98/56 L 94 Nasal Cannula 02/04/24 23:00 94 O2 Del Method O2 Flow Rate O2 Flow Rate 02/05/24 07:22 6 02/05/24 03:45 6.0 02/04/24 23:09 6.0 02/04/24 23:00 High Flow Nasal Cannula 6 Laboratory Results CBC 02/05/24 Range/Units 06:06 WBC 7.25 (4.8-10.8) K/ul RBC 3.32 L (4.20-5.40) M/uL Hgb 10.6 L (12.0-16.0) g/dl Hct 32.4 L (37.0-47.0) % Plt Count 200 (130-400) K/uL Comprehensive Metabolic Panel 02/05/24 Range/Units 06:06 Sodium 137 (136-145) mmol/L Potassium 4.0 (3.5-5.1) mmol/L Chloride 95 L (98-107) mmol/L Carbon Dioxide 36 H (21-32) mmol/L BUN 29 H (6-23) mg/dl Creatinine 1.20 (0.6-1.2) mg/dl Glucose 111 H (70-99(Fasting)) mg/dl Calcium 9.2 (8.6-10.3) mg/dl Intake and Output 02/04/24 02/05/24 02/05/24 22:59 06:59 14:59 Intake Total 150 / 470 120 / 470 Output Total 250 / 550 Balance 150 / -80 -130 / -80 Intake: Oral 150 / 470 120 / 470 Output: Urine 250 / 550 Other: # Unmeasured Voids 1 Weight 102.3 kg Weight Measurement Method Built in [facility] Diagnostic Findings Telemetry reviewed: Atrial fibrillation with intermittent ventricular pacing. Rates controlled. Atrial fibrillation has been persistent since yesterday with HR in the 80's EKG this morning: Afib with controlled rates Intermittent ventricular pacing RBBB QT/QTc 486/526 ms Medications Administered Current Inpatient Medications Acetaminophen (Acetaminophen 325 Mg Tab) 650 mg PO QID PRN PRN Reason: pain/fever Stop: 03/02/24 20:36 Last Admin: 02/04/24 21:05 Dose: 650 mg Amitriptyline HCl (Amitriptyline Hcl 10 Mg Tab) 10 mg PO HS LIAM Stop: 03/02/24 20:59 Last Admin: 02/04/24 20:57 Dose: 10 mg Apixaban (Apixaban 5 Mg Tablet) 5 mg PO BID LIAM Stop: 03/03/24 20:59 Last Admin: 02/05/24 08:06 Dose: 5 mg Artificial Tears (Artificial Tears) 1 drops OP QID PRN PRN Reason: Dryness Stop: 03/02/24 21:11 Aspirin (Aspirin 81 Mg Ectab) 81 mg PO DAILY LIAM Stop: 03/03/24 08:59 Last Admin: 02/05/24 08:07 Dose: 81 mg Atorvastatin Calcium (Atorvastatin 40 Mg Tab) 80 mg PO PM LIAM Stop: 03/02/24 20:59 Last Admin: 02/04/24 20:54 Dose: 80 mg Atropine Sulfate (Atropine Sulfate 0.1 Mg/Ml 10ml Syr) 1 mg IV Q3M PRN PRN Reason: symptomatic bradycardia Dextrose (Dextrose 50% 50 Ml Syringe) 25 - 50 ml IV UD PRN; Protocol PRN Reason: Hypoglycemia Protocol Stop: 03/02/24 23:28 Diltiazem HCl (Diltiazem Hcl 120 Mg Capcr) 120 mg PO DAILY@1200 LIAM Stop: 03/06/24 11:59 Empagliflozin (Empagliflozin 10 Mg Tab) 10 mg PO DAILY LIAM Stop: 03/04/24 08:59 Last Admin: 02/05/24 08:07 Dose: 10 mg Glucagon (Glucagon For Inj 1 Mg Vial) 1 mg SQ UD PRN; Protocol PRN Reason: Hypoglycemia Protocol Stop: 03/02/24 23:28 Glucose (Glucose 40% Gel 15 Gm Tube) 15 - 30 gm PO UD PRN; Protocol PRN Reason: Hypoglycemia Protocol Stop: 03/02/24 23:28 Glucose (Glucose 10 Tab/Tube) 4 - 8 tab PO UD PRN; Protocol PRN Reason: Hypoglycemia Treatment Stop: 03/02/24 23:28 Promethazine HCl (Phenergan) 6.25 mg in 50.25 mls @ 201 mls/hr IV Q6H PRN PRN Reason: Nausea And Vomiting Stop: 03/02/24 20:36 Insulin Aspart (Insulin Aspart Per Unit Charge) 0 units SC ACHS [facility] Stop: 03/03/24 00:00 Last Admin: 02/05/24 08:04 Dose: 3 units Ipratropium [place] (Ipratropium [place] Nasal [place] 0.06% 15ml) 1 sprays BRENNA QID PRN PRN Reason: Nasal Congestion Stop: 03/04/24 21:43 Isosorbide Mononitrate (Isosorbide [place] Extended Rel 30 Mg Tabcr) 30 mg PO QAM [facility] Stop: 03/03/24 08:59 Last Admin: 02/05/24 08:05 Dose: 30 mg Lisinopril (Lisinopril 5 Mg Tab) 5 mg PO QAM [facility] Stop: 03/05/24 11:29 Last Admin: 02/05/24 08:08 Dose: 5 mg Magnesium Oxide (Magnesium Oxide 400 Mg Tab) 400 mg PO BID [facility] Stop: 03/04/24 20:59 Last Admin: 02/05/24 08:08 Dose: 400 mg Metoprolol Succinate (Metoprolol Succ 25mg Ext Rel Tab) 25 mg PO BID [facility] Stop: 03/06/24 20:59 Miscellaneous (Carbohydrates For Hypoglycemia ) 15 - 30 gm PO UD PRN PRN Reason: Hypoglycemia Protocol Stop: 03/02/24 23:28 Multivitamins (Multivitamin Tab) 1 tab PO DAILY [facility] Stop: 03/03/24 08:59 Last Admin: 02/05/24 08:07 Dose: 1 tab Pantoprazole Sodium (Pantoprazole 40 Mg Tab) 40 mg PO BIDM [facility] Stop: 03/03/24 07:59 Last Admin: 02/05/24 08:05 Dose: 40 mg Pregabalin (Pregabalin 25 Mg Cap) 25 mg PO BID LIAM Stop: 03/02/24 20:59 Last Admin: 02/05/24 08:08 Dose: 25 mg Senna/Docusate Sodium (Docusate Sodium/Senna 50/8.6mg Tab) 1 tab PO QAM [facility] Stop: 03/04/24 21:29 Last Admin: 02/04/24 15:39 Dose: 1 tab Tramadol HCl (Tramadol Hcl 50 Mg Tablet) 25 - 50 mg PO Q4H PRN PRN Reason: Pain Stop: 03/02/24 20:36 Last Admin: 02/05/24 06:33 Dose: 25 mg
--- NOTE | 2024-02-05 11:46 | Hospitalist Progress Note ---
Date of Service February 05, 2024 Assessment & Plan (1) Acute on chronic respiratory failure with hypoxia and hypercapnia: Plan Pt is a 73yoF with PMHx significant for chronic diastolic heart failure (EF 55 to 60%, TTE 2023), CAD, A-fib on Eliquis, PSVT, valvular heart disease (trace MR, mild MR), CVA, PVD status post surgery, hypertension, hyperlipidemia, chronic respiratory failure secondary to COPD on home O2, pulmonary nodules, NAFLD, DM2 on oral medications, chronic anemia (baseline hemoglobin of 11), past tobacco abuse who was sent in for further evaluation for an abnormal Zio patch. Tachybradycardia syndrome was noted as well as sinus pauses on outpatient Zio patch. Tachybradycardia syndrome Sinus pauses s/p PPM on 02/02/24 Atrial fibrillation Noted on home heart monitoring with Zio patch Advised to present for further evaluation by cardiology s/p PPM on 02/02/24 Pt with episode of hypotension and dizziness afterwards requiring fluid bolus of 1L Resume home eliquis Continue to monitor on telemetry Cardiology consulted, appreciate recs -s/p PPM on 02/02/24 -started on sotalol -sotalol discontinued on 02/04, transitioned to metoprolol and diltiazem Hypertensive Urgency Patient with episode of hypertensive urgency overnight as well as shortness of breath Chest x-ray noting progressive pulmonary edema, possible pneumonitis Trop drawn at that time were elevated at 1068.6 before downtrending to 867.4 Patient was given as needed hydralazine and started on p.o. amlodipine Continue with amlodipine 5 mg daily and patient's home lisinopril 5 mg resumed by cardiology for hypertension continue to monitor Pulmonary edema Chest xray was concerning for fluid overload on admission Pt received IV lasix 20mg on admission overnight Was later hypotensive post pacemaker placement and was given 1L of fluids Echo obtained at that time noted EF of 50 to 55%, mild left ventricular hypertrophy, normal right ventricle, moderate mitral annular calcification, no mitral valve stenosis, and trivial posterior pericardial effusion Patient with chest x-ray obtained on noting progressive pulmonary edema as noted above and received IV Lasix 40 mg overnight Cardiology on board as above, appreciate recs Chronic respiratory failure secondary to COPD on home O2 Hyperlipidemia continue statin Rx DMII on oral medications well-controlled as of recent hemoglobin A1c of 6.07 November 2023 Basal/bolus per protocol chronic anemia hemoglobin at baseline Diet: DMII/HH DVT prophylaxis. SCDs while Eliquis on hold Full code Dispo: PCU/tele, PT/OT recommending return to prior living situation Admission and Anticipated Discharge Date Admission Date: February 01, 2024 Subjective patient was seen sitting up in bed denied chest pain, shortness of breath or palpitations Review of Systems Review of Systems: All systems reviewed & are unremarkable except as noted in Subjective Physical Exam Physical Exam: General: Alert, oriented. No acute distress Psych: Appropriate mood and affect Neuro:difficulty with movements in the bed HEENT: NC/AT CV: Irregular Resp: no increased effort of breathing Abdomen: Soft Extremities: Trace edema in lower extremities bilaterally. Results & Data Results & Data Vital Signs (Past 12 Hours) Vital Signs Temp Pulse Pulse Resp BP Pulse Ox O2 Del Method 02/05/24 11:09 71 02/05/24 07:22 36.8 C 71 19 127/80 96 High Flow Nasal Cannula 02/05/24 03:45 36.6 C 66 18 119/74 95 Nasal Cannula O2 Flow Rate 02/05/24 11:09 02/05/24 07:22 6 02/05/24 03:45 6.0
[2024-02-05] MEDS: ALBUT/IPRATROP 3MG/0.5MG NEB 3 ML VIAL NEB STA (12:29)
[2024-02-05] MEDS: dilTIAZem HCL 120 MG CAPCR PO SCH (12:30)
[2024-02-05] MEDS: METOPROLOL SUCC 25MG EXT REL TAB PO SCH (20:20)
[2024-02-06 07:29] LABS: Hematocrit (blood only) 30.5 % (37.0-47.0); Hemoglobin 9.7 g/dl (12.0-16.0); Mean Corpuscular Hemoglobin 31.4 pg (25.0-34.0); Mean Corpuscular Hgb Conc 31.8 g/dL (32.0-36.0); Mean Corpuscular Volume 98.7 fL (80.0-100.0); Mean Platelet Volume 10.2 fL (9.4-12.4); Platelet Count 205 K/uL (130-400); RDW Coefficient of Variation 15.2 % (11.5-14.5); RDW Standard Deviation 53.6 fL (36.4-46.3); Red Blood Count 3.09 M/uL (4.20-5.40)
[2024-02-06 07:51] LABS: Anion Gap 5 (3-11); BUN Creatinine Ratio 27.2 (10-20); Blood Urea Nitrogen 25 mg/dl (6-23); Calcium 9.1 mg/dl (8.6-10.3); Carbon Dioxide 36 mmol/L (21-32); Chloride 93 mmol/L (98-107); Creatinine Clr Calc Pharmacy 63.6 ml/min; Glucose 114 mg/dl (70-99(Fasting)); Magnesium 2.1 mg/dl (1.7-2.4); Phosphorus 4.5 mg/dl (2.5-4.9); Sodium 134 mmol/L (136-145)
[2024-02-06 11:09] VITALS: RESP 18; TEMP 97.9; O2SAT 95
--- NOTE | 2024-02-06 11:26 | Cardiology Progress Note ---
<Statement entered by Regine Barcenas DO - 02/06/24 16:14> I have reviewed the advanced practitioner's documentation and agree with the plan of care. I accept the responsibility for the associated risk. Pt seen in cardiology follow up due to TBS s/p ppm yesterday we changed her from sotalol to rate controlling agents toprol and diltiazem she is doing well and ok for discharge home today i will arrange for her to f/u with me on 02/21 we can do the wound check at that time as well Date of Service February 06, 2024 Assessment & Plan (1) Tachy-maribel syndrome: (2) Sinus pause: (3) Paroxysmal A-fib: (4) S/P cardiac pacemaker procedure: Plan 02/02/24 Patient with evidence of tachybrady syndrome with multiple symptomatic conversion pauses on outpatient ZIO. Past syncope/near syncope. Recommend dual chamber pacemaker. Risks/benefits discussed with patient. She is agreeable to proceeding. Keep NPO for procedure today with Dr. Barcenas Currently beta lacy on hold. Transition to metoprolol after pacemaker. 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 Resume after procedure for PAF. SOB and wheezing noted on admission. Treated with nebs and dose of IV lasix. Hypokalemia this morning - supplemented and recheck BMP and magnesium. Currently patient appears euvolemic. Known chronic respiratory failure with hypoxia. Continue supplemental O2. 02/03/24: last night patient had hypotensive episode, likely vasovagal in setting of volume depletion. Improved with IV fluids. No recurrent symptoms this morning. BP now hypertensive. She has had several episodes of PAF since admission. Recommend initiation of low dose sotalol 40 mg BID. Maintain telemetry. Monitor QT interval with EKG's. ordered for tonight and AM. Patient is agreeable to staying for ongoing antiarrhythmic load. 02/04/24: Last night patient had an episode of sudden onset dyspnea, hypertension, in setting of afib RVR. Started on amlodipine for hypertension. Chest xray completed and given dose of IV lasix and nebulizer treatment. Elevated troponin noted but she has no symptoms of ACS at this time. Possibly due to recent pacemaker insertion. EKG was intermittent ventricular pacing at the time. Currently she is asymptomatic. Resume sotalol this morning for PAF. Monitor QT intervals. Repeat EKG several hours after AM dose. BP remains high. Resume oral lisinopril 5 mg - (dose prior to admission). Titrate as needed. 02/05/24: Patient remains in afib overnight despite multiple doses of sotalol. QT prolongation a concern. Will stop sotalol. Transition to diltiazem 120 mg daily with metoprolol succinate 25 mg BID. Attempt at rate control strategy. If patient has ongoing symptoms with the afib, or rates are difficult to control, consider future AV node ablation. BP improved. Stop amlodipine with initiation of other CCB - Diltazem. Continue lisinopril for BP. 02/06/24: Patient converted to NSR earlier today. Tolerating diltaizem and metoprolol. QTc still prolonged. Sotalol was discontinued yesterday. Avoid other QT prolonging agents. During times of Afib, her rates are well controlled as well. Continue Eliquis for anticoagulation. BP also improved Continue lisinopril, diltiazem 120 at lunch time, metoprolol 25 mg BID. Wound check for pacer scheduled at [facility] on 02/20 - patient Further recommendations pending evaluation and discussion with Dr. Barcenas I spent a total of 35 minutes on the date of service in preparation, delivery, and documentation of the care provided to this patient, excluding any time spent in the performance of separately billed services. Naya Kiser PA-C Department of Cardiology, [facility] This chart was completed in part utilizing Speech Voice Recognition Software. Grammatical errors, random word insertions, pronoun errors, and incomplete sentences are an occasional consequence of this system due to software limitations, ambient noise, and hardware issues. Any formal questions or concerns about the content, text, or information contained within the body of this dictation should be directly addressed to the provider for clarification. Admission and Anticipated Discharge Date Admission Date: February 01, 2024 Subjective No events overnight. Tolerating med changes. Remains NSR this morning. Denies chest pain, dyspnea, dizziness. Review of Systems Review of Systems: All systems reviewed & are unremarkable except as noted in HPI & below Physical Exam Constitutional: WD/WN, vitals as above + obese; no acute distress Neck: trachea midline, no thyromegaly Respiratory: no respiratory distress Auscultation: + diminished lung sounds; no crackles, no rales and no rhonchi Cardiovascular: Rate/Rhythm: regular rate, regular rhythm, + tachycardic and + irregularly irregular Heart Sounds: normal S1 and normal S2; no murmur Vessels: no JVD Extremities: no edema Gastrointestinal (Abdomen): normal bowel sounds, soft, nontender, no hepatosplenomegaly Skin: no rashes, warm and dry Results & Data Vital Signs (Past 12 Hours) Vital Signs Temp Pulse Pulse Resp BP Pulse Ox O2 Del Method 02/06/24 11:05 36.6 C 76 18 148/82 H 95 Nasal Cannula 02/06/24 08:00 80 02/06/24 08:00 Nasal Cannula 02/06/24 08:00 36.7 C 86 16 146/85 H 91 Room Air 02/06/24 03:00 36.7 C 65 16 124/71 93 High Flow Nasal Cannula 02/05/24 23:33 36.5 C 65 16 113/72 92 High Flow Nasal Cannula O2 Flow Rate 02/06/24 11:05 5 02/06/24 08:00 02/06/24 08:00 4 02/06/24 08:00 02/06/24 03:00 5 02/05/24 23:33 5 Laboratory Results CBC 02/06/24 Range/Units 06:45 WBC 8.00 (4.8-10.8) K/ul RBC 3.09 L (4.20-5.40) M/uL Hgb 9.7 L (12.0-16.0) g/dl Hct 30.5 L (37.0-47.0) % Plt Count 205 (130-400) K/uL Comprehensive Metabolic Panel 02/06/24 02/06/24 Range/Units 06:45 08:10 Sodium 134 L (136-145) mmol/L Potassium TNP 4.0 Chloride 93 L (98-107) mmol/L Carbon Dioxide 36 H (21-32) mmol/L BUN 25 H (6-23) mg/dl Creatinine 0.92 (0.6-1.2) mg/dl Glucose 114 H (70-99(Fasting)) mg/dl Calcium 9.1 (8.6-10.3) mg/dl Intake and Output 02/05/24 02/06/24 02/06/24 22:59 06:59 14:59 Intake Total 1095 / 1395 300 / 1395 Balance 1095 / 1394 300 / 1394 Intake: Oral 1095 / 1395 300 / 1395 Other: # Unmeasured Voids 1 2 Weight 105.8 kg Weight Measurement Method Built in [facility] Diagnostic Findings Telemetry reviewed: Paroxysmal afib noted. She had about 6 hoours of afib overnight while asleep, converting to NSR around 4:00 AM. Currently, at time of evaluation, she was NSR in the 70's EKG reviewed: Sinus rhythm with 1st degree AV block RBBB QT/QTc 458/525 ms Medications Administered Current Inpatient Medications Acetaminophen (Acetaminophen 325 Mg Tab) 650 mg PO QID PRN PRN Reason: pain/fever Stop: 03/02/24 20:36 Last Admin: 02/04/24 21:05 Dose: 650 mg Amitriptyline HCl (Amitriptyline Hcl 10 Mg Tab) 10 mg PO HS LIAM Stop: 03/02/24 20:59 Last Admin: 02/05/24 20:16 Dose: 10 mg Apixaban (Apixaban 5 Mg Tablet) 5 mg PO BID LIAM Stop: 03/03/24 20:59 Last Admin: 02/06/24 08:24 Dose: 5 mg Artificial Tears (Artificial Tears) 1 drops OP QID PRN PRN Reason: Dryness Stop: 03/02/24 21:11 Aspirin (Aspirin 81 Mg Ectab) 81 mg PO DAILY LIAM Stop: 03/03/24 08:59 Last Admin: 02/06/24 08:25 Dose: 81 mg Atorvastatin Calcium (Atorvastatin 40 Mg Tab) 80 mg PO PM LIAM Stop: 03/02/24 20:59 Last Admin: 02/05/24 20:49 Dose: 80 mg Atropine Sulfate (Atropine Sulfate 0.1 Mg/Ml 10ml Syr) 1 mg IV Q3M PRN PRN Reason: symptomatic bradycardia Dextrose (Dextrose 50% 50 Ml Syringe) 25 - 50 ml IV UD PRN; Protocol PRN Reason: Hypoglycemia Protocol Stop: 03/02/24 23:28 Diltiazem HCl (Diltiazem Hcl 120 Mg Capcr) 120 mg PO DAILY@1200 LIAM Stop: 03/06/24 11:59 Last Admin: 02/05/24 12:30 Dose: 120 mg Empagliflozin (Empagliflozin 10 Mg Tab) 10 mg PO DAILY LIAM Stop: 03/04/24 08:59 Last Admin: 02/06/24 08:25 Dose: 10 mg Glucagon (Glucagon For Inj 1 Mg Vial) 1 mg SQ UD PRN; Protocol PRN Reason: Hypoglycemia Protocol Stop: 03/02/24 23:28 Glucose (Glucose 40% Gel 15 Gm Tube) 15 - 30 gm PO UD PRN; Protocol PRN Reason: Hypoglycemia Protocol Stop: 03/02/24 23:28 Glucose (Glucose 10 Tab/Tube) 4 - 8 tab PO UD PRN; Protocol PRN Reason: Hypoglycemia Treatment Stop: 03/02/24 23:28 Promethazine HCl (Phenergan) 6.25 mg in 50.25 mls @ 201 mls/hr IV Q6H PRN PRN Reason: Nausea And Vomiting Stop: 03/02/24 20:36 Insulin Aspart (Insulin Aspart Per Unit Charge) 0 units SC ACHS [facility] Stop: 03/03/24 00:00 Last Admin: 02/06/24 08:22 Dose: 2 units Ipratropium [place] (Ipratropium [place] Nasal [place] 0.06% 15ml) 1 sprays BRENNA QID PRN PRN Reason: Nasal Congestion Stop: 03/04/24 21:43 Isosorbide Mononitrate (Isosorbide [place] Extended Rel 30 Mg Tabcr) 30 mg PO QAM [facility] Stop: 03/03/24 08:59 Last Admin: 02/06/24 08:25 Dose: 30 mg Lisinopril (Lisinopril 5 Mg Tab) 5 mg PO QAM LIAM Stop: 03/05/24 11:29 Last Admin: 02/06/24 08:26 Dose: 5 mg Magnesium Oxide (Magnesium Oxide 400 Mg Tab) 400 mg PO BID LIAM Stop: 03/04/24 20:59 Last Admin: 02/06/24 08:24 Dose: 400 mg Metoprolol Succinate (Metoprolol Succ 25mg Ext Rel Tab) 25 mg PO BID LIAM Stop: 03/06/24 20:59 Last Admin: 02/06/24 08:26 Dose: 25 mg Miscellaneous (Carbohydrates For Hypoglycemia ) 15 - 30 gm PO UD PRN PRN Reason: Hypoglycemia Protocol Stop: 03/02/24 23:28 Multivitamins (Multivitamin Tab) 1 tab PO DAILY LIAM Stop: 03/03/24 08:59 Last Admin: 02/06/24 08:24 Dose: 1 tab Pantoprazole Sodium (Pantoprazole 40 Mg Tab) 40 mg PO BIDM [facility] Stop: 03/03/24 07:59 Last Admin: 02/06/24 08:23 Dose: 40 mg Pregabalin (Pregabalin 25 Mg Cap) 25 mg PO BID [facility] Stop: 03/02/24 20:59 Last Admin: 02/06/24 08:24 Dose: 25 mg Senna/Docusate Sodium (Docusate Sodium/Senna 50/8.6mg Tab) 1 tab PO QAM [facility] Stop: 03/04/24 21:29 Last Admin: 02/06/24 08:27 Dose: 1 tab Tramadol HCl (Tramadol Hcl 50 Mg Tablet) 25 - 50 mg PO Q4H PRN PRN Reason: Pain Stop: 03/02/24 20:36 Last Admin: 02/05/24 20:23 Dose: 25 mg
--- NOTE | 2024-02-06 13:48 | Electrocardiogram Report ---
Test Reason : Blood Pressure : */* mmHG Vent. Rate : 79 BPM Atrial Rate : 79 BPM P-R Int : 216 ms QRS Dur : 132 ms QT Int : 458 ms P-R-T Axes : 69 21 4 degrees QTcB Int : 525 ms Sinus rhythm with 1st degree A-V block Right bundle branch block Abnormal ECG When compared with ECG of 05-Feb-2024 10:50, (unconfirmed) Sinus rhythm has replaced Atrial flutter Confirmed by Ed Posada ([id number]) on 02/06/2024 1:47:46 PM Referred By: Enrico De La Torre Confirmed By: Ed Posada
--- NOTE | 2024-02-06 14:46 | Electrocardiogram Report ---
Test Reason : Blood Pressure : */* mmHG Vent. Rate : 71 BPM Atrial Rate : 107 BPM P-R Int : * ms QRS Dur : 132 ms QT Int : 486 ms P-R-T Axes : * 31 -75 degrees QTcB Int : 528 ms Atrial fibrillation with occasional ventricular-paced complexes Right bundle branch block T wave abnormality, consider inferior ischemia Abnormal ECG When compared with ECG of 04-Feb-2024 14:36, Atrial fibrillation has replaced Sinus rhythm Confirmed by Ed Posada ([id number]) on 02/06/2024 2:46:08 PM Referred By: Enrico De La Torre Confirmed By: Ed Posada
--- NOTE | 2024-02-06 16:37 | Discharge Summary ---
Discharge Summary Date of Service February 06, 2024 Principal Dx & Hospital Course #1 = Principal Diagnosis (1) Acute on chronic respiratory failure with hypoxia and hypercapnia: Plan Pt is a 73yoF with PMHx significant for chronic diastolic heart failure (EF 55 to 60%, TTE 2023), CAD, A-fib on Eliquis, PSVT, valvular heart disease (trace MR, mild MR), CVA, PVD status post surgery, hypertension, hyperlipidemia, chronic respiratory failure secondary to COPD on home O2, pulmonary nodules, NAFLD, DM2 on oral medications, chronic anemia (baseline hemoglobin of 11), past tobacco abuse who was sent in for further evaluation for an abnormal Zio patch. Tachybradycardia syndrome was noted as well as sinus pauses on outpatient Zio patch. Tachybradycardia syndrome Sinus pauses s/p PPM on 02/02/24 Atrial fibrillation Noted on home heart monitoring with Zio patch Advised to present for further evaluation by cardiology s/p PPM on 02/02/24 Pt with episode of hypotension and dizziness afterwards requiring fluid bolus of 1L. Stable since then. Resumed home eliquis Cardiology consulted, appreciate recs -s/p PPM on 02/02/24 -started on sotalol -sotalol discontinued on 02/04, transitioned to metoprolol and diltiazem -Advised discharge with diltiazem 120mg to be taken at noon and metoprolol succinate 25mg BID as well as resuming lisinopril 5mg daily. Close cardiology and EP follow-up after discharge Hypertensive Urgency Patient with episode of hypertensive urgency overnight as well as shortness of breath Chest x-ray noting progressive pulmonary edema, possible pneumonitis Trop drawn at that time were elevated at 1068.6 before downtrending to 867.4 Patient was given as needed hydralazine and started on p.o. amlodipine Continue with amlodipine 5 mg daily and patient's home lisinopril 5 mg resumed by cardiology for hypertension PCP f/u after discharge Pulmonary edema Chest xray was concerning for fluid overload on admission Pt received IV lasix 20mg on admission overnight Was later hypotensive post pacemaker placement and was given 1L of fluids Echo obtained at that time noted EF of 50 to 55%, mild left ventricular hypertrophy, normal right ventricle, moderate mitral annular calcification, no mitral valve stenosis, and trivial posterior pericardial effusion Patient with chest x-ray obtained on noting progressive pulmonary edema as noted above and received IV Lasix 40 mg overnight Cardiology on board as above, appreciate recs Chronic respiratory failure secondary to COPD on home O2, baseline of 3L Pt will require close monitoring and weaning back to baseline as needed PCP followup Hyperlipidemia continue statin Rx DMII on oral medications well-controlled as of recent hemoglobin A1c of 6.07 November 2023 Basal/bolus per protocol chronic anemia hemoglobin at baseline PCP follow up Notes For Next Care Provider please ensure close follow-up with cardiology and EP after discharge Please ensure follow-up of patient's respiratory status, ensure return to baseline oxygen levels Medication Changes From Visit Per cardiology: diltiazem 120 mg daily at noon Metoprolol succinate 25 mg twice daily Resume Lisinopril 5 mg daily Admission HPI Per Admitting Provider History obtained from patient, family, and records. Medical history significant for chronic diastolic heart failure (EF 55 to 60%, TTE 2023), CAD, A-fib on Eliquis, PSVT, valvular heart disease (trace MR, mild MR), CVA, PVD status post surgery, hypertension, hyperlipidemia, chronic respiratory failure secondary to COPD on home O2, pulmonary nodules, NAFLD, DM2 on oral medications, chronic anemia (baseline hemoglobin of 11), past tobacco abuse. Last confinement November 2023 for syncope. Concern for bradycardia arrhythmia. Atenolol dose decreased on discharge. Outpatient Zio patch applied following outpatient G cardiology visit 2 weeks ago. Patient also told to hold home lisinopril given low BP and intermittent hyperkalemia as per records. 4 days ago, patient noted shortness of breath with chest tightness and audible wheezing. No unusual cough symptoms. Compliant with home medications. Not sure about weight gain. Sinus pauses on outpatient Zio patch monitoring. Patient instructed to go to ER by cardiology provider. Lowest O2 sats of 80s documented on room air at the ER. 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 Admission Exam Per Admitting Provider GENERAL: Slightly uncomfortable, obese, dysarthric, aphasic, no respiratory distress SKIN: Pallor, warm HEENT: Pale palpebral conjunctivae, no ptosis, right nasolabial fold flattening (chronic), dry buccal mucosa NECK : Supple, no tenderness CHEST : Decreased breath sounds, no tenderness HEART : Tachycardic, no obvious murmurs ABDOMEN: Some distention, nontender EXTREMITIES : Minimal LE swelling, no LE tenderness, no other conspicuous deformities noted NEUROLOGIC : Coherent, aphasic, chronic facial asymmetry, dysarthric, gait and stance not assessed Discharge Exam General: Alert, oriented. No acute distress Psych: Appropriate mood and affect Neuro:difficulty with movements in the bed HEENT: NC/AT CV: Irregular Resp: no increased effort of breathing Abdomen: Soft Extremities: Trace edema in lower extremities bilaterally. Updated Medication List Medication Instructions Recorded Confirmed Type apixaban 5 mg tablet (Eliquis) 5 mg PO BID 01/31/22 02/01/24 History aspirin 81 mg tablet,delayed 81 mg PO DAILY 01/31/22 02/01/24 History release atorvastatin 80 mg tablet 80 mg PO PM 01/31/22 02/01/24 History cholecalciferol (vitamin D3) 25 25 mcg PO DAILY 01/31/22 02/01/24 History mcg (1,000 unit) tablet (Vitamin D3) coenzyme Q10 100 mg capsule 100 mg PO DAILY 01/31/22 02/01/24 History (CoQ-10) cyclosporine 0.05 % eye drops in a 1 - 2 drp ophthalmic (eye) QID PRN 01/31/22 02/01/24 History dropperette (Restasis) Dry Eyes empagliflozin 10 mg tablet 10 mg PO DAILY 01/31/22 02/01/24 History (Jardiance) esomeprazole magnesium 40 mg 40 mg PO BID 01/31/22 02/01/24 History capsule,delayed release fexofenadine 180 mg tablet 180 mg PO DAILY PRN ALLERGIES 01/31/22 02/01/24 History ipratropium 20 mcg-albuterol 100 1 puff inhalation QID PRN 01/31/22 02/01/24 History mcg/actuation mist for inhalation Shortness Of Breath Or Wheezing (Combivent Respimat) multivitamin 1 tab PO DAILY 01/31/22 02/01/24 History nitroglycerin 0.4 mg sublingual 0.4 mg sublingual DIRECTED PRN 01/31/22 02/01/24 History tablet (Nitrostat) Chest Pain peg 400-propylene glycol (PF) 0.4 1 drp OPB DIRECTED ##0 01/31/22 02/01/24 History %-0.3 % eye drops in a dropperette (Systane (PF)) pomegranate fruit extract 250 mg 0 mg PO DAILY 01/31/22 02/01/24 History capsule vitamin B complex 1 tab PO DAILY 01/31/22 11/26/23 History amitriptyline 10 mg tablet 10 mg PO HS 11/26/23 02/01/24 History ipratropium bromide 21 mcg (0.03 2 spray intranasal QID PRN Nasal 11/26/23 02/01/24 History %) nasal spray Congestion isosorbide mononitrate 30 mg 30 mg PO QAM 11/26/23 02/01/24 History tablet,extended release 24 hr pregabalin 25 mg capsule 25 mg PO BID 11/26/23 02/01/24 History diltiazem HCl 120 mg 120 mg PO DAILY@1200 #30 caps 02/06/24 Rx capsule,extended release 24 hr (Cardizem CD) lisinopril 5 mg tablet 5 mg PO DAILY #30 tabs 02/06/24 Rx metoprolol succinate 25 mg 25 mg PO BID #60 tabs 02/06/24 Rx tablet,extended release 24 hr Hospital Stay Data Consultations 02/01/24 19:31 ED Decision to Admit Stat 02/01/24 23:29 Consult Cardiology Routine Procedures Performed Operation Date: 02/02/24 13:30 Actual Procedures p Pacer with A/V Leads (Dual) - Regine Barcenas DO s Venogram, Unilateral - Regine Barcenas DO Diagnostic Imagining Performed 02/02/24 10:45 EP Lab Images for PACS ONCE Chest X-Ray 02/01/24 18:49 XR chest 1V portable CLINICAL HISTORY: Dysrhythmia. COMPARISON STUDY: Chest radiograph November 26, 2023. FINDINGS: There is no pneumothorax. Small bilateral pleural effusions are present. There are associated bibasilar opacities which favor atelectasis. Cardiomegaly is again noted. Interstitial thickening represents mild pulmonary edema. Right lung airspace opacity shown on prior exam have improved. IMPRESSION: Cardiomegaly with interstitial pulmonary edema and small bilateral pleural effusions and associated bibasilar opacities which favor atelectasis. ACT 112: Negative or not required by law. Electronically signed by: Nima Kelly M.D. 02/02/2024 6:41 AM Chest X-Ray 02/02/24 17:00 SINGLE VIEW CHEST CLINICAL HISTORY: Pacemaker implantation. FINDINGS: An AP, portable, upright chest radiograph is compared to study dated 02/01/2024. A 2-lead cardiac pacemaker is new from 02/01/2024. Leads project over the right atrial appendage and right ventricle. The heart is enlarged noting atherosclerotic calcification of the thoracic aorta. There is pulmonary vascular congestion with mild interstitial edema. There are small pleural effusions with dependent atelectasis. No pneumothorax is seen. The skeletal structures are osteopenic. The bony thorax is grossly intact. IMPRESSION: 1. A 2-lead cardiac pacemaker has been implanted as above. No pneumothorax is seen post procedure. 2. Cardiomegaly with evidence of congestive failure and mild pulmonary edema. 3. Small pleural effusions. ACT 112: Negative or not required by law. Electronically signed by: Tomy Jack M.D. 02/02/2024 5:06 PM Chest X-Ray 02/03/24 22:46 XR chest 1V portable HISTORY: 73 years-old Female sob acute shortness of breath COMPARISON: 02/02/2024 TECHNIQUE: AP view of the chest FINDINGS: Cardiac silhouette is enlarged. Left subclavian dual lead pacer. Pulmonary vascular congestion with interstitial coarsening. Small pleural effusions with progressive bibasilar consolidation including a 3 cm round focus projected over the right lung base. IMPRESSION: 1. Cardiomegaly with progressive pulmonary edema. 2. Small pleural effusions with worsening bibasilar consolidation which may r epresent atelectasis versus pneumonitis. ACT 112: Negative or not required by law. The above report was generated using voice recognition software. It may contain grammatical, syntax or spelling errors. Electronically signed by: Magan Coleman M.D. 02/04/2024 7:00 AM Pending Results Patient Have Any Pending Studies at Discharge: No Discharge Instructions Given to Patient (Per Discharging Provider) Pastora, You were sent in by your sales and business development manager for further evaluation after sinus pauses and tachybradycardia syndrome was noted on your outpatient heart monitor. You had a pacemaker placed. Please keep close follow-up with electrophysiology and cardiology after discharge. Cardiology also made some medication changes. They switched your home atenolol to metoprolol 25 mg twice a day, please continue with that. We also started you on the medication diltiazem at 120 mg to be taken every day at noon. Please resume taking your home lisinopril per the recommendations of cardiology. A new prescription for this was provided. Please keep close follow up with your primary care provider after discharge for any additional needs. Again, please also keep follow-up with cardiology and electrophysiology after discharge. Please do not hesitate to come back to the emergency room if your symptoms worsen or return. It was a pleasure taking care of you while you were here. Total Time Total Time Spent Total Time Spent (In Minutes): 65
[2024-02-06 16:56] VITALS: BP 99/67; PULSE 76
== END 2024-02-06 17:38 | disposition home or self-care (01) | DRG 242 ==
LOC: ED 18:37 → 2S 20:35

== ENCOUNTER 2024-06-26 13:24 | Inpatient (IN) ==
[2024-06-26 14:31] LABS: Adenovirus PCR Not Detected (NotDetected); Bordetella parapertussis PCR Not Detected (NotDetected); Bordetella pertussis PCR Not Detected (NotDetected); Chlamydia pneumoniae PCR Not Detected (NotDetected); Coronavirus 229E PCR Not Detected (NotDetected); Coronavirus CoV-2 (COVID19)PCR Not Detected (NotDetected); Coronavirus HKU1 PCR Not Detected (NotDetected); Coronavirus NL63 PCR Not Detected (NotDetected); Coronavirus OC43PCR Not Detected (NotDetected); Human Metapneumovirus PCR Not Detected (NotDetected); Influenza A PCR Not Detected (NotDetected); Influenza B PCR Not Detected (NotDetected); Mycoplasma pneumoniae PCR Not Detected (NotDetected); Parainfluenza Virus 1 PCR Not Detected (NotDetected); Parainfluenza Virus 2 PCR Not Detected (NotDetected); Parainfluenza Virus 3 PCR Not Detected (NotDetected); Parainfluenza Virus 4 PCR Not Detected (NotDetected); Respiratory Syncytial VirusPCR Not Detected (NotDetected); Rhinovirus/Enterovirus PCR Not Detected (NotDetected)
[2024-06-26 14:35] LABS: Basophils # (auto) 0.03 K/uL (0.00-0.20); Basophils % (auto) 0.4 %; Eosinophils # (auto) 0.12 K/uL (0.00-0.50); Eosinophils % (auto) 1.5 %; Hematocrit (blood only) 33.3 % (37.0-47.0); Hemoglobin 9.8 g/dl (12.0-16.0); Immature Granulocytes # (auto) 0.03 K/uL (0.01-0.20); Immature Granulocytes % (auto) 0.4 %; Lymphocytes # (auto) 1.03 K/uL (1.20-3.40); Lymphocytes % (auto) 12.5 %; Mean Corpuscular Hemoglobin 27.9 pg (25.0-34.0); Mean Corpuscular Hgb Conc 29.4 g/dL (32.0-36.0); Mean Corpuscular Volume 94.9 fL (80.0-100.0); Mean Platelet Volume 10.3 fL (9.4-12.4); Monocytes # (auto) 0.68 K/uL (0.11-0.59); Monocytes % (auto) 8.2 %; Neutrophils # (auto) 6.37 K/uL (1.40-6.50); Nucleated RBC # (auto) 0.02 K/uL (0.00-0.12); Nucleated RBC % (auto) 0.2 %; Platelet Count 232 K/uL (130-400); RDW Coefficient of Variation 16.9 % (11.5-14.5); RDW Standard Deviation 58.4 fL (36.4-46.3); Red Blood Count 3.51 M/uL (4.20-5.40); White Blood Count 8.26 K/ul (4.8-10.8)
[2024-06-26 14:52] LABS: Alanine Aminotransferase 21 U/L (7-52); Albumin Globulin Ratio 1.3 (0.9-2); Albumin Level 3.5 gm/dl (3.4-5.0); Alkaline Phosphatase 99 U/L (34-104); Anion Gap 4 (3-11); Aspartate Aminotransferase 24 U/L (13-39); BUN Creatinine Ratio 24.5 (10-20); Bilirubin,Total 0.4 mg/dl (0.2-1.0); Blood Urea Nitrogen 24 mg/dl (6-23); Calcium 9.2 mg/dl (8.6-10.3); Carbon Dioxide 35 mmol/L (21-32); Chloride 99 mmol/L (98-107); Globulin 2.8 gm/dl (2.5-4.0); Glucose 110 mg/dl (70-99(Fasting)); Sodium 138 mmol/L (136-145); Total Protein 6.3 gm/dl (6.0-8.3)
[2024-06-26 14:59] LABS: Troponin I High Sensitivity 20.8 pg/ml (0-14)
--- NOTE | 2024-06-26 15:00 | XRay Report ---
XR chest 1V not portable CLINICAL HISTORY: Chest pain, nonspecific COMPARISON STUDY: 02/03/2024 FINDINGS: Left-sided pacemaker is present. Stable cardiomegaly with mild pulmonary vascular congestio n. There is increased opacity in the lung bases with obscuration of the diaphragm and blunting of the costophrenic angles. No pneumothorax. IMPRESSION: CHF with bilateral pleural effusions and associated lung base consolidation, left greate r than right. ACT 112: Negative or not required by law. Electronically signed by: Reji Figueroa M.D. 06/26/2024 2:59 PM
--- NOTE | 2024-06-26 15:20 | Emergency Department Note ---
Impression & Plan Increasing shortness of breath, Elevated BUN, Bilateral edema of lower extremity ED Provider Note CHIEF COMPLAINT: Shortness of breath HISTORY OF PRESENTING ILLNESS: Patient is a 74-year-old female who arrives to the emergency department for evaluation of increasing shortness of breath over the last few days. She reports history of COPD and CHF. She reports she wears 4 L nasal cannula at all times. She states symptoms have worsened, and she is having increased difficulty breathing. She denies fever, chest pain, abdominal pain, nausea, or vomiting. She report worsening lower extremity edema. She reports a history of a previous CVA with expressive aphasia. REVIEW OF SYSTEMS: See HPI for pertinent positives and pertinent negatives. ALLERGIES: See below MEDICATIONS: See below PAST MEDICAL HISTORY: Tachybradycardia syndrome, paroxysmal A-fib, CKD stage III, CAD, acute on chronic respiratory failure with hypoxia and hypercapnia, cardiac pacemaker PHYSICAL EXAM: VITALS: Vitals are noted on the nurse's note and reviewed by myself. Vital signs stable. GENERAL: 74-year-old female, in no acute distress, nondiaphoretic, well- developed well-nourished. SKIN: BLE pitting edema 3+. HEAD: Normocephalic atraumatic. NECK: Supple without nuchal rigidity. No JVD. HEART: Regular rate and rhythm without murmurs gallops or rubs. LUNGS: Coarse lung sounds left lower lobe, right lower lobe. ABDOMEN: Positive bowel sounds x 4. Soft, nontender, without masses or organomegaly. Gomez sign negative. No guarding or rebound tenderness. NEURO: Patient was alert and oriented to person place and time. No focal neurological deficits. DIFFERENTIAL DIAGNOSIS: Reactive airway disease, pneumonia, pneumothorax, COPD, CHF, infections, cardiac ischemia, pulmonary embolism, musculoskeletal, gastrointestinal, as well as other pathologies. HISTORY FROM INDEPENDENT HISTORIAN: Granddaughter at bedside as secondary historian. MEDICATIONS GIVEN: 40 mg IV Lasix MONITOR: Continuous registered nurse cardiac telemetry: Order was placed for continuous registered nurse cardiac telemetry. Patient was placed on the registered nurse cardiac telemetry and continuous pulse ox. Patient was noted to be in Atrial fibrillation at an initial rate of 75 bpm per my interpretation. EKG: EKG was interpreted by myself as atrial fibrillation, with frequent ventricular paced complexes at a rate of 65 bpm, no signs of ischemia noted. Previous for comparison from February 2024 shows new ventricular paced rhythm. INTERPRETATION OF LABS: I interpreted the labs with full lab results as below in the lab section of this note. Pertinent lab results discussed in the MDM section below. INTERPRETATION OF IMAGING: Imaging studies were interpreted by myself and read by radiology as per the imaging section of this note. CHRONIC MEDICAL/SOCIAL CONDITIONS AFFECTING CARE: COPD, CHF, chronic nasal cannula use MDM SUMMARY: The patient is a 74-year-old female who arrives to the emergency department for evaluation of the above-stated complaint. The patient arrived during a time of high acuity and high-volume. Initial workup was performed in triage including a saline lock, CBC, CMP, lipase, troponin, chest x-ray, EKG, upper respiratory BioFire panel. CBC shows no leukocytosis, with a stable anemia. CMP shows elevated BUN at 24, with no other concerning findings. Troponin 20.8, with repeat 22.1. BNP 524. Upper respiratory BioFire panel negative. Chest x-ray shows per my interpretation, CHF with bilateral pleural effusions and associated lung base consolidation, left greater than right. Pacemaker present left side. EKG shows atrial fibrillation, with ventricular paced rhythm. Previous for comparison from February 2024 shows sinus rhythm with first-degree AV block with a right bundle branch block. The patient was provided 40 mg of IV Lasix. I spoke with the [facility] hospitalist, who agreed to evaluate the patient for admission. Dr. Cadena accepted the patient under his care. Please refer to his documentation for further patient workup. DIAGNOSIS: CHF exacerbation The patient's case was discussed with Dr. Kee, who agreed with my evaluation and treatment plan. The chart was completed utilizing [employer] Speech voice recognition software. Grammatical errors, random word insertions, pronoun errors, and incomplete sentences are an occasional consequence of this system due to software limitations, ambient noise, and hardware issues. Any formal questions or concerns about the content, text, or information contained within the body of this dictation should be directly addressed to the provider for clarification. Past Med/Surg History Problem List (Updated 06/26/24 @ 23:23 by EFREM José) Bilateral edema of lower extremity (Acute) Elevated BUN (Acute) Increasing shortness of breath (Acute) S/P cardiac pacemaker procedure Tachy-mariebl syndrome Sinus pause (Acute) Ventricular tachycardia (Acute) Paroxysmal A-fib (Acute) Cardiac dysrhythmia (Acute) CKD (chronic kidney disease), stage III CAD (coronary artery disease) Paroxysmal atrial fibrillation Left ankle injury Acute on chronic respiratory failure with hypoxia and hypercapnia Acute and chronic respiratory failure with hypercapnia (Acute) Syncope and collapse (Acute) Left ankle sprain (Acute) Encounter for pre-operative examination Carotid endarterectomy (Chronic 09/16/12) Medical History Diabetes mellitus, type 2 Peripheral vascular disease Osteoarthritis Irritable bowel syndrome Diverticulitis GERD (gastroesophageal reflux disease) Peripheral neuropathy BLE Stroke LUNAR STROKE 1994 Atrial fibrillation PAST HX/NO PROBLEMS Hypertension Hyperlipidemia On home oxygen therapy 2L NC HS ONLY Chronic obstructive pulmonary disease Surgical History History of bilateral tubal ligation History of colonoscopy History of cholecystectomy History of tooth extraction History of tonsillectomy History of adenoidectomy History of carotid endarterectomy LEFT/RT History of cardiac cath 2003/NO STENTS Family History Family/Other Family history of diabetes mellitus Brother Family history of esophageal cancer Social History Smoking Status: Unknown if ever smoked Tobacco Type: Cigarettes Cigarettes Per Day: 1 pack; Second Hand Exposure: No; Do You Dip or Chew Tobacco: No; Hx Alcohol Use: No Hx Substance Use: No Preferred Language: Colombian Communication Ability: Effective Communication Ability Comment: Hx stroke- slurred speech Surgeon'S Assistant Required: No Beliefs That Will Affect Care: None Current Living Situation: Spouse Current Living Situation Comment: lives at home with spouse Feels Safe at Home: Yes Assistive Devices: Denture - Upper and Denture - Lower Allergies Allergies Allergy/AdvReac Type Severity Reaction Status Date / Time bupropion Allergy Intermediate ZYBAN-HIVES Verified 02/01/24 20:28 niacin Allergy Intermediate BURNED Verified 02/01/24 20:28 THROAT amoxicillin Allergy Mild Rash Verified 02/01/24 20:28 prednisone AdvReac Intermediate ELEVATES Verified 02/01/24 20:28 BLOOD PRESSURE levofloxacin AdvReac Mild Weakness Verified 02/01/24 20:28 Antihistamines - Alkylamine AdvReac BP goes up Verified 02/01/24 21:16 Antihistamines - Ethanolamine AdvReac BP goes up Verified 02/01/24 21:16 Antihistamines - AdvReac BP goes up Verified 02/01/24 21:16 Ethylenediamine Antihistamines - Piperazine AdvReac BP goes up Verified 02/01/24 21:16 Antihistamines - Piperidine AdvReac BP goes up Verified 02/01/24 21:16 Home Meds Home Medications Medication Instructions Recorded Confirmed apixaban 5 mg tablet (Eliquis) 5 mg PO BID 01/31/22 06/26/24 aspirin 81 mg tablet,delayed 81 mg PO DAILY 01/31/22 06/26/24 release atorvastatin 80 mg tablet 80 mg PO PM 01/31/22 06/26/24 cholecalciferol (vitamin D3) 25 25 mcg PO DAILY 01/31/22 06/26/24 mcg (1,000 unit) tablet (Vitamin D3) coenzyme Q10 100 mg capsule 100 mg PO DAILY 01/31/22 06/26/24 (CoQ-10) empagliflozin 10 mg tablet 10 mg PO DAILY 01/31/22 06/26/24 (Jardiance) esomeprazole magnesium 40 mg 40 mg PO BID 01/31/22 06/26/24 capsule,delayed release ipratropium 20 mcg-albuterol 100 1 puff inhalation QID PRN 01/31/22 06/26/24 mcg/actuation mist for inhalation Shortness Of Breath Or Wheezing (Combivent Respimat) multivitamin 1 tab PO DAILY 01/31/22 06/26/24 nitroglycerin 0.4 mg sublingual 0.4 mg sublingual DIRECTED PRN 01/31/22 06/26/24 tablet (Nitrostat) Chest Pain peg 400-propylene glycol (PF) 0.4 1 drp OPB DIRECTED ##0 01/31/22 06/26/24 %-0.3 % eye drops in a dropperette (Systane (PF)) vitamin B complex 1 tab PO DAILY 01/31/22 06/26/24 amitriptyline 10 mg tablet 10 mg PO HS 11/26/23 06/26/24 ipratropium bromide 21 mcg (0.03 2 spray intranasal QID PRN Nasal 11/26/23 06/26/24 %) nasal spray Congestion isosorbide mononitrate 30 mg 30 mg PO QAM 11/26/23 06/26/24 tablet,extended release 24 hr pregabalin 25 mg capsule 25 mg PO BID 11/26/23 06/26/24 Previous Rx's Medication Instructions Recorded diltiazem HCl 120 mg 120 mg PO DAILY@1200 #30 caps 02/06/24 capsule,extended release 24 hr (Cardizem CD) lisinopril 5 mg tablet 5 mg PO DAILY #30 tabs 02/06/24 metoprolol succinate 25 mg 25 mg PO BID #60 tabs 02/06/24 tablet,extended release 24 hr Results & Data (ED) Vital Signs Vital Signs - 24 hr 06/26/24 13:27 06/26/24 14:17 Temperature 36.7 C Temperature Source Temporal Artery Scan Pulse Rate 69 Pulse Rhythm Regular Pulse Strength Normal Respiratory Rate 20 Blood Pressure 169/67 H Blood Pressure Mean 101 Pulse Oximetry 90 Oxygen Delivery Method Nasal Cannula Nasal Cannula Oxygen Flow Rate 4 4 Sepsis Recent Fever Within 48 Hours No Sepsis New/Unexplained Change in Mental Status N/A Sepsis Action Taken by Nursing No Action Required Home Medications Current Medication List: was personally reviewed by me Laboratory Data Attestation: I reviewed the patient's lab results. 06/26/24 14:16 06/26/24 14:16 Lab Results 06/26/24 06/26/24 06/26/24 Range/Units 13:31 14:16 14:20 WBC 8.26 (4.8-10.8) K/ul RBC 3.51 L (4.20-5.40) M/uL Hgb 9.8 L (12.0-16.0) g/dl Hct 33.3 L (37.0-47.0) % MCV 94.9 (80.0-100.0) fL MCH 27.9 (25.0-34.0) pg MCHC 29.4 L (32.0-36.0) g/dL RDW Std Deviation 58.4 H (36.4-46.3) fL RDW Coeff of Shonda 16.9 H (11.5-14.5) % Plt Count 232 (130-400) K/uL MPV 10.3 (9.4-12.4) fL Immature Gran % (Auto) 0.4 % Neut % (Auto) 77.0 % Lymph % (Auto) 12.5 % Sheridan % (Auto) 8.2 % Eos % (Auto) 1.5 % Baso % (Auto) 0.4 % Neut # (Auto) 6.37 (1.40-6.50) K/uL Lymph # (Auto) 1.03 L (1.20-3.40) K/uL Sheridan # (Auto) 0.68 H (0.11-0.59) K/uL Eos # (Auto) 0.12 (0.00-0.50) K/uL Baso # (Auto) 0.03 (0.00-0.20) K/uL Immature Gran # (Auto) 0.03 (0.01-0.20) K/uL Absolute Nucleated RBC 0.02 (0.00-0.12) K/uL Nucleated RBC % (auto) 0.2 % PT 11.1 (9.0-12.0) Seconds INR 1.0 (0.9-1.1) APTT 29 (21-31) Seconds PTT Ratio 1.1 Sodium 138 (136-145) mmol/L Potassium 5.0 (3.5-5.1) mmol/L Chloride 99 (98-107) mmol/L Carbon Dioxide 35 H (21-32) mmol/L Anion Gap 4 (3-11) BUN 24 H (6-23) mg/dl Creatinine 0.98 (0.6-1.2) mg/dl Est Cr Clr Drug Dosing Not Reportable eGFR 60.19 BUN/Creatinine Ratio 24.5 H (10-20) Glucose 110 H (70-99(Fasting)) mg/dl Calcium 9.2 (8.6-10.3) mg/dl Total Bilirubin 0.4 (0.2-1.0) mg/dl AST 24 (13-39) U/L ALT 21 (7-52) U/L Alkaline Phosphatase 99 (34-104) U/L Troponin I High Sens 20.8 H (0-14) pg/ml B-Natriuretic Peptide 524 H (0-100) pg/ml Total Protein 6.3 (6.0-8.3) gm/dl Albumin 3.5 (3.4-5.0) gm/dl Globulin 2.8 (2.5-4.0) gm/dl Albumin/Globulin Ratio 1.3 (0.9-2) Urine Color Yellow Urine Appearance Cloudy A (Clear) Urine pH 5.5 (4.5-7.5) Ur Specific Treece 1.032 H (1.000-1.030) Urine Protein 3+ H (Negative) Urine Glucose (UA) 3+ H (Negative) Urine Ketones Negative (Negative) Urine Blood 1+ H (Negative) Urine Nitrite Negative (Negative) Urine Bilirubin Negative (Negative) Urine Urobilinogen Negative (Negative) Ur Leukocyte Esterase Negative (Negative) Urine WBC (Auto) >50 H (0-5) /hpf Urine RBC (Auto) 6-10 H (0-2) /hpf U Hyaline Cast (Auto) 3-5 H (0-2) /lpf U Epithel Cells (Auto) 11-20 H (0-2) /hpf Urine Bacteria (Auto) 1+ H (None Seen) Urine Yeast Present A (None Prsent) Adenovirus (PCR) Not Detected (NotDetected) B. pertussis DNA (PCR) Not Detected (NotDetected) B.parapertussis DNA PCR Not Detected (NotDetected) C. pneumoniae DNA (PCR) Not Detected (NotDetected) Coronavirus OC43 (PCR) Not Detected (NotDetected) Coronavirus HKU1 (PCR) Not Detected (NotDetected) Coronavirus 229E (PCR) Not Detected (NotDetected) SARS-CoV-2 (PCR) Not Detected (NotDetected) Coronavirus NL63 (PCR) Not Detected (NotDetected) Human Metapneumovir PCR Not Detected (NotDetected) Influenza Type A (PCR) Not Detected (NotDetected) Influenza Type B (PCR) Not Detected (NotDetected) M. pneumoniae (PCR) Not Detected (NotDetected) Parainfluenza 1 (PCR) Not Detected (NotDetected) Parainfluenza 2 (PCR) Not Detected (NotDetected) Parainfluenza 3 (PCR) Not Detected (NotDetected) Parainfluenza 4 (PCR) Not Detected (NotDetected) RSV (PCR) Not Detected (NotDetected) Entero/Rhino (PCR) Not Detected (NotDetected) Administered Medications Albuterol (Albut/Ipratrop 3mg/0.5mg Neb 3 Ml Vial) 3 ml NEB Q2H PRN; Protocol PRN Reason: sob wheeze Stop: 07/26/24 20:21 Last Admin: 06/26/24 20:45 Dose: 3 ml Documented By: EMMegan Amitriptyline HCl (Amitriptyline Hcl 10 Mg Tab) 10 mg PO HS LIAM Stop: 07/26/24 20:59 Last Admin: 06/26/24 21:03 Dose: 10 mg Documented By: [facility] Apixaban (Apixaban 5 Mg Tablet) 5 mg PO BID LIAM Stop: 07/26/24 20:59 Last Admin: 06/26/24 21:01 Dose: 5 mg Documented By: [facility] Atorvastatin Calcium (Atorvastatin 40 Mg Tab) 80 mg PO PM LIAM Stop: 07/26/24 20:59 Last Admin: 06/26/24 21:01 Dose: 80 mg Documented By: [facility] Furosemide (Furosemide 40 Mg/4 Ml Vial) 40 mg IV BID LIAM Stop: 07/26/24 20:59 Last Admin: 06/26/24 21:01 Dose: 40 mg Documented By: [facility] Ceftriaxone Sodium (Rocephin) 2,000 mg in 50 mls @ 100 mls/hr IV Q24H LIAM Stop: 07/06/24 21:59 Last Infusion: 06/26/24 22:49 Dose: Infused Documented By: [facility] Admin: 06/26/24 22:18 Dose: 100 mls/hr Documented By: [facility] Metoprolol Succinate (Metoprolol Succ 25mg Ext Rel Tab) 25 mg PO BID LIAM Stop: 07/26/24 20:59 Last Admin: 06/26/24 21:01 Dose: 25 mg Documented By: [facility] Pantoprazole Sodium (Pantoprazole 40 Mg Tab) 40 mg PO BID LIAM Stop: 07/26/24 20:59 Last Admin: 06/26/24 21:01 Dose: 40 mg Documented By: [facility] Pregabalin (Pregabalin 25 Mg Cap) 25 mg PO BID LIAM Stop: 07/26/24 20:59 Last Admin: 06/26/24 21:01 Dose: 25 mg Documented By: [facility] Trazodone HCl (Trazodone Hcl 50 Mg Tab) 50 mg PO HS PRN PRN Reason: Insomnia Stop: 07/26/24 20:59 Last Admin: 06/26/24 21:01 Dose: 50 mg Documented By: CASE Discontinued Medications Furosemide (Furosemide 40 Mg/4 Ml Vial) 40 mg IV ONE ONE Stop: 06/26/24 15:02 Last Admin: 06/26/24 18:26 Dose: 40 mg Documented By: MAEGAN Furosemide (Furosemide 40 Mg/4 Ml Vial) 40 mg IV ONE ONE Stop: 06/26/24 18:20 Last Admin: 06/26/24 18:28 Dose: Not Given Documented By: MAEGAN Acetaminophen (Ofirmev) 1,000 mg in 100 mls @ 400 mls/hr IV NOW STA Stop: 06/26/24 22:41 Last Admin: 06/26/24 23:17 Dose: Not Given Documented By: CASE Ioversol (Optiray 320 100ml) 100 ml IV ONCE ONE Stop: 06/26/24 22:55 Last Admin: 06/26/24 22:54 Dose: 93 ml Documented By: ABDOULAYE Miscellaneous (Patient's Height &/Or Weight Needed) 1 each N/A Q2H STA Stop: 06/26/24 19:29 Last Admin: 06/26/24 20:08 Dose: 1 each Documented By: CASE Imaging Data Attestation: I personally reviewed and interpreted this imaging study as follows: Radiologist's Impression: Chest X-Ray 06/26/24 13:32 XR chest 1V not portable CLINICAL HISTORY: Chest pain, nonspecific COMPARISON STUDY: 02/03/2024 FINDINGS: Left-sided pacemaker is present. Stable cardiomegaly with mild pulmonary vascular congestion. There is increased opacity in the lung bases with obscuration of the diaphragm and blunting of the costophrenic angles. No pneumothorax. IMPRESSION: CHF with bilateral pleural effusions and associated lung base consolidation, left greater than right. ACT 112: Negative or not required by law. Electronically signed by: Reji Figueroa M.D. 06/26/2024 2:59 PM Discharge Plan Visit Data Chief Complaint: Shortness of Breath/Dyspnea Stated Complaint: SOB ED Provider: Tomy Kee ED Midlevel Provider: Abigail Sharpe Discharge Problem: Increasing shortness of breath, Elevated BUN, Bilateral edema of lower extremity Patient Disposition: Admitted As Inpatient Discharge Instructions Interventions: ED Discharge Assessment Last Done: 06/26/24 19:06
[2024-06-26 15:41] LABS: Partial Thromboplastin Ratio 1.1; Partial Thromboplastin Time 29 Seconds (21-31); Prothrombin Time 11.1 Seconds (9.0-12.0)
[2024-06-26 15:45] LABS: Appearance Urine Cloudy (Clear); Bacteria Urine Automated 1+ (None Seen); Bilirubin Urine Negative (Negative); Blood Urine 1+ (Negative); Color Urine Yellow; Glucose Urine UA 3+ (Negative); Ketones Urine Negative (Negative); Leukocyte Esterase Urine Negative (Negative); Nitrite Urine Negative (Negative); Protein Urine 3+ (Negative); Specific Gravity Urine 1.032 (1.000-1.030); Urobilinogen Urine Negative (Negative); WBC Urine Automated >50 /hpf (0-5); pH Urine 5.5 (4.5-7.5)
--- NOTE | 2024-06-26 15:51 | Electrocardiogram Report ---
Test Reason : Blood Pressure : */* mmHG Vent. Rate : 65 BPM Atrial Rate : * BPM P-R Int : * ms QRS Dur : 120 ms QT Int : 440 ms P-R-T Axes : * 41 14 degrees QTcB Int : 457 ms Atrial fibrillation with frequent ventricular-paced complexes RSR' or QR pattern in V1 suggests right ventricular conduction delay Cannot rule out Anterior infarct , age undetermined Abnormal ECG When compared with ECG of 06-Feb-2024 12:28, Electronic ventricular pacemaker has replaced Sinus rhythm Confirmed by Pop Wagner ([id number]) on 06/26/2024 3:51:30 PM Referred By: Confirmed By: Pop Wagner
--- NOTE | 2024-06-26 18:00 | Emergency Department Note ---
ED Visit Note I was consulted by the Advanced Practice Provider. I personally made/approved the management plan and take responsibility for the patient management. I performed a substantive portion of the visit. This includes the aspects of: [-I independently interpreted the following studies:][Chest x-ray shows CHF with some pleural effusions] Patient presents with dyspnea. She was found to have heart failure by workup. There is an elevation of the BNP. There is CHF on chest x-ray, her troponin is mildly elevated. Admission is warranted. .
--- NOTE | 2024-06-26 18:06 | History & Physical Report ---
<Statement entered by Jamal Cadena, DO - 06/26/24 19:47> I have seen and examined the patient and have discussed the case with the advance practice provider. I have reviewed the advanced practitioner's documentation, and I agree with, and take responsibility for that plan of care. Patient seen after returning from the bathroom. Has had good amount of urine output with the Lasix already, however still quite dyspneic with any type of exertion. Patient states that she does not weigh herself regularly. Thinks she was 220 pounds a couple months ago in the outpatient office. Family at bedside as well Reviewed previous echocardiograms, ejection fraction has been preserved. Cannot see documentation of any type of pulmonary hypertension Based on patient's body habitus and chronic oxygen requirements, I am somewhat suspicious she might have obesity hypoventilatory syndrome which may be contributing to her heart failure may benefit from outpatient sleep studies. Patient with syncopal episodes, noted some intermittent hypotension in the outpatient realm as well. This may be contributing to heart failure. Agree with cardiology consultation Continue diuresis Discussed additional plan of care as outlined below I spent a total of 19 minutes coordinating, documenting, and providing care for this patient excluding time spent by another provider/QHP. Date of Service June 26, 2024 Assessment & Plan (1) Diabetes mellitus, type 2: (2) Peripheral vascular disease: (3) Atrial fibrillation: (4) Hypertension: (5) Hyperlipidemia: (6) CKD (chronic kidney disease), stage III: (7) CAD (coronary artery disease): (8) Chronic obstructive pulmonary disease: Plan Assessment and plan: CHF exacerbation Chronic hypoxic respiratory failure Hx COPDon 4 L chronically Presented with worsening shortness of breath, elevated BNP, chest x-ray with CHF exacerbation IV Lasix twice a day, strict I&O, telemetry monitoring, consider cardiology consult if no improvement Remains on baseline 4 Lnot in active COPD exacerbation, reports compliance with inhalers at home Syncope x 2: Reports 2 syncopal episodes lasting about a minute 2 days ago Reports holding her lisinopril and her Cardizem due to concerns with heart rates in the 50s Telemetry monitoring, check orthostatic BPs Hx hyperlipidemia: Continue statin Hx DM2: Continue Jardiance, recheck A1c Hx AF s/p pacemaker February 2024 Continue metoprolol/Cardizem A total of 60 minutes was spent on chart review/facilitating plan of care/reviewing diagnostic data/discussion with consult DNR/DNI DVT prophylaxis: Eliquis History of Present Illness Chief Complaint: Worsening shortness of breath Primary Care Provider: Daysi Pham MD The patient is a 74-year-old female with a past medical history of CHF, diastolicEF 55-60%, CAD, A-fib on Eliquis, PFT, trace MR, mild MR, CVAchronic expressive aphasia, PVD s/p surgical intervention, HTN, HLD, chronic respiratory failure secondary to COPD on home O24 L chronically, NAFLD, DM2, anemia who presents to the ED on 06/22/2024 with complaints of worsening shortness of breath over the past few days. Patient reports over the past few days having to increase her oxygen to 5 L because her oxygen level was in the 60s. She wears 4 L of oxygen chronically [id number]. Had 2 syncopal episodes 2 days ago each lasting about a minute. At this time, her heart rate was noted to be in the 50s. She has been holding her lisinopril and Cardizem for 3 days. She did not discuss this with her director distribution. Follows with Wil. She denies any respiratory symptoms. She denies any chest pain. Denies any recent travel or sick contacts. Denies any wheezing and does not feel like this is a COPD exacerbation. Reports compliance with inhalers at home. On arrival to the ED, labs are remarkable for, hemoglobin 9.8, BUN 24, glucose 110, Trope 20.8, BNP 524, BioFire negative Chest x-ray showed: CHF with bilateral pleural effusions and associated lung base consolidation, left greater than right. EKG showed atrial fibrillation, V paced The patient was given a dose of IV Lasix in the ER and will be admitted for CHF exacerbation Allergies Allergy/AdvReac Type Severity Reaction Status Date / Time bupropion Allergy Intermediate ZYBAN-HIVES Verified 02/01/24 20:28 niacin Allergy Intermediate BURNED Verified 02/01/24 20:28 THROAT amoxicillin Allergy Mild Rash Verified 02/01/24 20:28 prednisone AdvReac Intermediate ELEVATES Verified 02/01/24 20:28 BLOOD PRESSURE levofloxacin AdvReac Mild Weakness Verified 02/01/24 20:28 Antihistamines - Alkylamine AdvReac BP goes up Verified 02/01/24 21:16 Antihistamines - Ethanolamine AdvReac BP goes up Verified 02/01/24 21:16 Antihistamines - AdvReac BP goes up Verified 02/01/24 21:16 Ethylenediamine Antihistamines - Piperazine AdvReac BP goes up Verified 02/01/24 21:16 Antihistamines - Piperidine AdvReac BP goes up Verified 02/01/24 21:16 Home Medications Medication Instructions Recorded Confirmed Type apixaban 5 mg tablet (Eliquis) 5 mg PO BID 01/31/22 06/26/24 History aspirin 81 mg tablet,delayed 81 mg PO DAILY 01/31/22 06/26/24 History release atorvastatin 80 mg tablet 80 mg PO PM 01/31/22 06/26/24 History cholecalciferol (vitamin D3) 25 25 mcg PO DAILY 01/31/22 06/26/24 History mcg (1,000 unit) tablet (Vitamin D3) coenzyme Q10 100 mg capsule 100 mg PO DAILY 01/31/22 06/26/24 History (CoQ-10) empagliflozin 10 mg tablet 10 mg PO DAILY 01/31/22 06/26/24 History (Jardiance) esomeprazole magnesium 40 mg 40 mg PO BID 01/31/22 06/26/24 History capsule,delayed release ipratropium 20 mcg-albuterol 100 1 puff inhalation QID PRN 01/31/22 06/26/24 History mcg/actuation mist for inhalation Shortness Of Breath Or Wheezing (Combivent Respimat) multivitamin 1 tab PO DAILY 01/31/22 06/26/24 History nitroglycerin 0.4 mg sublingual 0.4 mg sublingual DIRECTED PRN 01/31/22 06/26/24 History tablet (Nitrostat) Chest Pain peg 400-propylene glycol (PF) 0.4 1 drp OPB DIRECTED ##0 01/31/22 06/26/24 History %-0.3 % eye drops in a dropperette (Systane (PF)) vitamin B complex 1 tab PO DAILY 01/31/22 06/26/24 History amitriptyline 10 mg tablet 10 mg PO HS 11/26/23 06/26/24 History ipratropium bromide 21 mcg (0.03 2 spray intranasal QID PRN Nasal 11/26/23 06/26/24 History %) nasal spray Congestion isosorbide mononitrate 30 mg 30 mg PO QAM 11/26/23 06/26/24 History tablet,extended release 24 hr pregabalin 25 mg capsule 25 mg PO BID 11/26/23 06/26/24 History diltiazem HCl 120 mg 120 mg PO DAILY@1200 #30 caps 02/06/24 06/26/24 Rx capsule,extended release 24 hr (Cardizem CD) lisinopril 5 mg tablet 5 mg PO DAILY #30 tabs 02/06/24 06/26/24 Rx metoprolol succinate 25 mg 25 mg PO BID #60 tabs 02/06/24 06/26/24 Rx tablet,extended release 24 hr Past Med/Surg History Problem List (Updated 03/08/24 @ 00:06 by Background Daemon) S/P cardiac pacemaker procedure Tachy-maribel syndrome Sinus pause (Acute) Ventricular tachycardia (Acute) Paroxysmal A-fib (Acute) Cardiac dysrhythmia (Acute) CKD (chronic kidney disease), stage III CAD (coronary artery disease) Paroxysmal atrial fibrillation Left ankle injury Acute on chronic respiratory failure with hypoxia and hypercapnia Acute and chronic respiratory failure with hypercapnia (Acute) Syncope and collapse (Acute) Left ankle sprain (Acute) Encounter for pre-operative examination Carotid endarterectomy (Chronic 09/16/12) Medical History (Updated 03/08/24 @ 00:06 by Background Daemon) Diabetes mellitus, type 2 Peripheral vascular disease Osteoarthritis Irritable bowel syndrome Diverticulitis GERD (gastroesophageal reflux disease) Peripheral neuropathy BLE Stroke LUNAR STROKE 1994 Atrial fibrillation PAST HX/NO PROBLEMS Hypertension Hyperlipidemia On home oxygen therapy 2L NC HS ONLY Chronic obstructive pulmonary disease Surgical History (Updated 03/08/24 @ 00:06 by Background Daemon) History of bilateral tubal ligation History of colonoscopy History of cholecystectomy History of tooth extraction History of tonsillectomy History of adenoidectomy History of carotid endarterectomy LEFT/RT History of cardiac cath 2003/NO STENTS Family History Family/Other Family history of diabetes mellitus Brother Family history of esophageal cancer Social History Smoking Status: Former smoker Tobacco Type: Cigarettes Cigarettes Per Day: 1 pack; Second Hand Exposure: No; Do You Dip or Chew Tobacco: No; Hx Alcohol Use: No Hx Substance Use: No Preferred Language: Czech Communication Ability: Effective Communication Ability Comment: Hx stroke- slurred speech Director Information Security Required: No Beliefs That Will Affect Care: None Current Living Situation: Alone Feels Safe at Home: Yes Assistive Devices: Oxygen - Continuous and Walker Review of Systems Review of Systems: All systems reviewed & are unremarkable except as noted in HPI & below Physical Exam Constitutional: WD/WN, vitals as above well developed and well nourished; no acute distress Eyes: PERRL, conjunctivae normal, anicteric sclerae ENMT: external ear and nose normal, oropharynx normal Neck: trachea midline, no thyromegaly Respiratory: normal respiratory effort, lungs clear to auscultation normal respiratory effort; no respiratory distress and no labored breathing Cardiovascular: RRR, no murmur, no edema (+2 nonpitting bilateral lower extremity edema) Gastrointestinal (Abdomen): normal bowel sounds, soft, nontender, no hepatosplenomegaly Musculoskeletal: no cyanosis or clubbing, extremities motor strength 5/5 Skin: no rashes, warm and dry Neurologic: PERRL, EOMI, accommodation nl, no face palsy, no dysarthria (Chronic expressive aphasia) Psychiatric: A+Ox3, euthymic affect Lymphatic: no cervical or axillary lymphadenopathy Results & Data Results & Data Vital Signs (Past 12 Hours) Vital Signs Temp Pulse Resp BP Pulse Ox O2 Del Method O2 Flow Rate 06/26/24 14:17 Nasal Cannula 4 06/26/24 13:27 36.7 C 69 20 169/67 H 90 Nasal Cannula 4 Diagnostic Findings Laboratory Results WBC 8.26 K/ul (4.8-10.8) 06/26/24 14:16 RBC 3.51 M/uL (4.20-5.40) L 06/26/24 14:16 Hgb 9.8 g/dl (12.0-16.0) L 06/26/24 14:16 Hct 33.3 % (37.0-47.0) L 06/26/24 14:16 MCV 94.9 fL (80.0-100.0) 06/26/24 14:16 MCH 27.9 pg (25.0-34.0) 06/26/24 14:16 MCHC 29.4 g/dL (32.0-36.0) L 06/26/24 14:16 RDW Std Deviation 58.4 fL (36.4-46.3) H 06/26/24 14:16 RDW Coeff of Shonda 16.9 % (11.5-14.5) H 06/26/24 14:16 Plt Count 232 K/uL (130-400) 06/26/24 14:16 MPV 10.3 fL (9.4-12.4) 06/26/24 14:16 Immature Gran % (Auto) 0.4 % 06/26/24 14:16 Neut % (Auto) 77.0 % 06/26/24 14:16 Lymph % (Auto) 12.5 % 06/26/24 14:16 [place] % (Auto) 8.2 % 06/26/24 14:16 Eos % (Auto) 1.5 % 06/26/24 14:16 Baso % (Auto) 0.4 % 06/26/24 14:16 Neut # (Auto) 6.37 K/uL (1.40-6.50) 06/26/24 14:16 Lymph # (Auto) 1.03 K/uL (1.20-3.40) L 06/26/24 14:16 [place] # (Auto) 0.68 K/uL (0.11-0.59) H 06/26/24 14:16 Eos # (Auto) 0.12 K/uL (0.00-0.50) 06/26/24 14:16 Baso # (Auto) 0.03 K/uL (0.00-0.20) 06/26/24 14:16 Immature Gran # (Auto) 0.03 K/uL (0.01-0.20) 06/26/24 14:16 Absolute Nucleated RBC 0.02 K/uL (0.00-0.12) 06/26/24 14:16 Nucleated RBC % (auto) 0.2 % 06/26/24 14:16 PT 11.1 Seconds (9.0-12.0) 06/26/24 14:16 INR 1.0 (0.9-1.1) 06/26/24 14:16 APTT 29 Seconds (21-31) 06/26/24 14:16 PTT Ratio 1.1 06/26/24 14:16 Sodium 138 mmol/L (136-145) 06/26/24 14:16 Potassium 5.0 mmol/L (3.5-5.1) 06/26/24 14:16 Chloride 99 mmol/L (98-107) 06/26/24 14:16 Carbon Dioxide 35 mmol/L (21-32) H 06/26/24 14:16 Anion Gap 4 (3-11) 06/26/24 14:16 BUN 24 mg/dl (6-23) H 06/26/24 14:16 Creatinine 0.98 mg/dl (0.6-1.2) 06/26/24 14:16 Est Cr Clr Drug Dosing Not Reportable 06/26/24 14:16 eGFR 60.19 06/26/24 14:16 BUN/Creatinine Ratio 24.5 (10-20) H 06/26/24 14:16 Glucose 110 mg/dl (70-99(Fasting)) H 06/26/24 14:16 Calcium 9.2 mg/dl (8.6-10.3) 06/26/24 14:16 Total Bilirubin 0.4 mg/dl (0.2-1.0) 06/26/24 14:16 AST 24 U/L (13-39) 06/26/24 14:16 ALT 21 U/L (7-52) 06/26/24 14:16 Alkaline Phosphatase 99 U/L (34-104) 06/26/24 14:16 Troponin I High Sens 20.8 pg/ml (0-14) H 06/26/24 14:16 B-Natriuretic Peptide 524 pg/ml (0-100) H 06/26/24 14:16 Total Protein 6.3 gm/dl (6.0-8.3) 06/26/24 14:16 Albumin 3.5 gm/dl (3.4-5.0) 06/26/24 14:16 Globulin 2.8 gm/dl (2.5-4.0) 06/26/24 14:16 Albumin/Globulin Ratio 1.3 (0.9-2) 06/26/24 14:16 Urine Color Yellow 06/26/24 14:20 Urine Appearance Cloudy (Clear) A 06/26/24 14:20 Urine pH 5.5 (4.5-7.5) 06/26/24 14:20 Ur Specific [place] 1.032 (1.000-1.030) H 06/26/24 14:20 Urine Protein 3+ (Negative) H 06/26/24 14:20 Urine Glucose (UA) 3+ (Negative) H 06/26/24 14:20 Urine Ketones Negative (Negative) 06/26/24 14:20 Urine Blood 1+ (Negative) H 06/26/24 14:20 Urine Nitrite Negative (Negative) 06/26/24 14:20 Urine Bilirubin Negative (Negative) 06/26/24 14:20 Urine Urobilinogen Negative (Negative) 06/26/24 14:20 Ur Leukocyte Esterase Negative (Negative) 06/26/24 14:20 Urine WBC (Auto) >50 /hpf (0-5) H 06/26/24 14:20 Urine RBC (Auto) 6-10 /hpf (0-2) H 06/26/24 14:20 U Hyaline Cast (Auto) 3-5 /lpf (0-2) H 06/26/24 14:20 U Epithel Cells (Auto) 11-20 /hpf (0-2) H 06/26/24 14:20 Urine Bacteria (Auto) 1+ (None Seen) H 06/26/24 14:20 Urine Yeast Present (None Prsent) A 06/26/24 14:20 Adenovirus (PCR) Not Detected (NotDetected) 06/26/24 13:31 B. pertussis DNA (PCR) Not Detected (NotDetected) 06/26/24 13:31 B.parapertussis DNA PCR Not Detected (NotDetected) 06/26/24 13:31 C. pneumoniae DNA (PCR) Not Detected (NotDetected) 06/26/24 13:31 Coronavirus OC43 (PCR) Not Detected (NotDetected) 06/26/24 13:31 Coronavirus HKU1 (PCR) Not Detected (NotDetected) 06/26/24 13:31 Coronavirus 229E (PCR) Not Detected (NotDetected) 06/26/24 13:31 SARS-CoV-2 (PCR) Not Detected (NotDetected) 06/26/24 13:31 Coronavirus NL63 (PCR) Not Detected (NotDetected) 06/26/24 13:31 Human Metapneumovir PCR Not Detected (NotDetected) 06/26/24 13:31 Influenza Type A (PCR) Not Detected (NotDetected) 06/26/24 13:31 Influenza Type B (PCR) Not Detected (NotDetected) 06/26/24 13:31 M. pneumoniae (PCR) Not Detected (NotDetected) 06/26/24 13:31 Parainfluenza 1 (PCR) Not Detected (NotDetected) 06/26/24 13:31 Parainfluenza 2 (PCR) Not Detected (NotDetected) 06/26/24 13:31 Parainfluenza 3 (PCR) Not Detected (NotDetected) 06/26/24 13:31 Parainfluenza 4 (PCR) Not Detected (NotDetected) 06/26/24 13:31 RSV (PCR) Not Detected (NotDetected) 06/26/24 13:31 Entero/Rhino (PCR) Not Detected (NotDetected) 06/26/24 13:31 Impressions Chest X-Ray 06/26/24 13:32 XR chest 1V not portable CLINICAL HISTORY: Chest pain, nonspecific COMPARISON STUDY: 02/03/2024 FINDINGS: Left-sided pacemaker is present. Stable cardiomegaly with mild pulmonary vascular congestion. There is increased opacity in the lung bases with obscuration of the diaphragm and blunting of the costophrenic angles. No pneumothorax. IMPRESSION: CHF with bilateral pleural effusions and associated lung base consolidation, left greater than right. ACT 112: Negative or not required by law. Electronically signed by: Reji Figueroa M.D. 06/26/2024 2:59 PM
[2024-06-26] MEDS: FUROSEMIDE 40 MG/4 ML VIAL IV ONE ×2 (18:26→18:28)
[2024-06-26 19:04] LABS: Troponin I High Sensitivity 22.1 pg/ml (0-14)
[2024-06-26] MEDS ORDERED: IPRATROPIUM BROMIDE/ALBUTEROL respimat INH INH PRN (19:18)
[2024-06-26] MEDS: Patient's HEIGHT &/or WEIGHT Needed STA (20:08)
--- NOTE | 2024-06-26 20:12 | CT Scan Report ---
Exam(s): CT HEAD Without Contrast EXAM: CT Head Without Intravenous Contrast CLINICAL HISTORY: Reason for exam: syncope. TECHNIQUE: Axial computed tomography images of the head/brain without intravenous contrast. CTDI is 37 mGy and DLP is 624 mGy-cm. Automated exposure control was utilized for the study. A dose lowering technique was utilized adhering to the principles of ALARA. COMPARISON: No relevant prior studies available. FINDINGS: Artifacts: Images are degraded by motion artifact. Brain: No intracranial hemorrhage, mass-effect, or cerebral edema. Chronic infarct in the left frontoparietal lobes. Global parenchymal atrophy. Chronic lacunar infarct within the right basal ganglia. Chronic microvascular ischemic changes. Ventricles: Unremarkable. Bones/joints: Unremarkable. No fracture. Soft tissues: Unremarkable. Sinuses: No acute sinusitis. Mastoid air cells: Unremarkable as visualized. IMPRESSION: 1. No acute intracranial abnormality. Electronically signed by: Thierno Meehan MD 06/26/24 20:11 PM
[2024-06-26] MEDS: ALBUT/IPRATROP 3MG/0.5MG NEB 3 ML VIAL NEB PRN (20:45)
[2024-06-26] MEDS: PREGABALIN 25 MG CAP PO SCH (21:01)
[2024-06-26] MEDS: traZODone HCL 50 MG TAB PO PRN (21:01)
[2024-06-26] MEDS: FUROSEMIDE 40 MG/4 ML VIAL IV SCH (21:01)
[2024-06-26] MEDS: METOPROLOL SUCC 25MG EXT REL TAB PO SCH (21:01)
[2024-06-26] MEDS: ATORVASTATIN 40 MG TAB PO SCH (21:01)
[2024-06-26] MEDS: PANTOprazole 40 MG TAB PO SCH (21:01)
[2024-06-26] MEDS: APIXABAN 5 MG TABLET PO SCH (21:01)
[2024-06-26] MEDS: AMITRIPTYLINE HCL 10 MG TAB PO SCH (21:03)
--- NOTE | 2024-06-26 21:52 | Communication Note ---
Date of Service: June 26, 2024
[2024-06-26] MEDS: cefTRIAXone SODIUM 2,000 MG/50 ML BAG IV SCH (22:18)
--- OUTSIDE RECORDS SUMMARY | 2024-06-26 22:27 | External Medical Summary | Summary of Care ---
Author Name Unknown Organization [facility] Address [address] [place] [address] Phone [phone] Care Team Providers Care Sneller Hand Name Role Phone Daysi Pham MD Primary Care Provide r Encounter Details Date Type Department Care Team (Late st Contact Info) Description 06/08/2024 Result Scan Unspecified Department Regine Barcenas, DO [address] [facility] [place] [address] <No scans attached> Allergies Active Allergy Reactions Criticality Noted Date Comments Amoxicillin Rash 11/19/2011 Levofloxacin Other (Please comment) 11/13/2013 Weakness, lightheadedness, nausea Niacin Er (Antihyperlipidemic) 01/30/2010 Burned throat. Prednisone 09/03/2012 Blood pressure went up. Bupropion Hcl 01/30/2010 documented as of this encounter (statuses as of 06/09/2024) Medications VITAMIN B COMPLEX PO CAPSIndications:evans pplementation Take by mouth 1 Capsule daily . Active CO Q 10 100 MG PO CAPSIndications:le g pain Take by mouth 100 mg daily . Active ASPIRIN 81 MG PO TABSIndications:he art health Take 1 Tablet by mouth in the morning. Active oxygen GAS Use 2 L/min(Oxygen) as directed at bedtime. Active Respiratory Therapy Supplies (NEBULIZER) DEVIIndications:CO PD, moderate (HCC) Use as directed. Duonebs, 3 ml's every 6 hours as needed 1 Device 05/21/19 17 Active Multiple Vitamins-Minerals (MULTIVITAMIN WOMEN) TABSIndications:ge neral health Take by mouth 1 Tablet daily . Active nitroglycerin (NITROSTAT) 0.4 MG SUBLIndications:Ch ronic coronary artery disease Place 1 Tab under the tongue as needed for Pain, Chest. May repeat 3 times. If chest pain continues, call 911. 25 Tab 1 02/01/20 19 Active Wheat Dextrin (BENEFIBER) powderIndications: gut health Take by mouth . 1 teaspoon daily in beverage Active Pomegranate 250 MG CAPSIndications:fo r circulation Take by mouth . Taking 400 mg daily Active fexofenadine (ARGELIA) 180 MG TabletIndications: Non-seasonal allergic rhinitis, unspecified trigger Take 1 Tab by mouth daily. For allergies. 90 Tab 3 06/16/19 20 Active Additional Information Patient taking differently:180 mg OralDAILY PRN, Allergies, (No instructions reported), Indications: allergies, Reported on 03/10/2024 OneTouch Verio w/Device KitIndications:Typ e 2 diabetes mellitus with hemoglobin A1c goal of less than 8.0% ([facility]) Use once a day Dx: E11.9 1 Kit 08/09/19 21 Active Fluocinolone Acetonide 0.01 % Otic OilIndications:for ear Administer into ears once a week . On Saturdays Active Systane Preservative Free 0.4-0.3 % Ophthalmic Solution (Polyethyl Glyc-Propyl Glyc PF)Indications:dry eyes Instill into eye 1 Drop daily as needed for Other. Active Vitamin D 125 MCG (5000 UT) Oral Capsule Take by mouth. Activ e Ipratropium [place] 0.03 % Nasal Solution (Atrovent)Indicati ons:Rhinorrhea ADMINISTER 2 SPRAYS INTO EACH NOSTRIL 4 TIMES A DAY NEEDED FOR RHINITIS. FOR RUNNY NOSE 90 mL 1 03/15/20 23 Active Ipratropium-[place] rol 20-100 MCG/ACT Inhalation Aerosol Solution (Combivent Respimat)Indicatio ns:COPD, group B, by GOLD 2017 classification ([facility]) INHALE 1 PUFF BY MOUTH IN THE MORNING, 1 PUFF AT NOON, 1 PUFF IN THE EVENING, AND 1 PUFF BEFORE BEDTIME 12 g 1 4 5:02 PM EST 04/16/20 23 Active OneTouch Verio In Vitro Strip (Glucose Blood)Indications: Type 2 diabetes mellitus with hemoglobin A1c goal of less than 8.0% (HCC) USE TO TEST BLOOD SUGAR ONCE A DAY 100 Strip 3 5 3:24 PM EST 08/09/19 24 Active Lisinopril 5 MG Oral Tablet (Prinivil)Indicati ons:HTN, goal below 140/90 TAKE ONE TABLET BY MOUTH EVERY DAY 90 Tablet 3 5 5:03 PM EST 08/12/19 24 025 Active Atorvastatin Calcium 80 MG Oral Tablet (Lipitor)Indicatio ns:Dyslipidemia, goal LDL below 100 TAKE ONE TABLET BY MOUTH EVERYday 100 Tablet 3 5 2:45 PM EST 10/18/19 24 025 Active OneTouch Delica Plus [id number] ns:Type 2 diabetes mellitus with hemoglobin A1c goal of less than 8.0% ([facility]) USE TO TEST BLOOD SUGAR ONCE A DAY DIRECTED 100 Each 1 10/30/19 24 025 Active Amitriptyline HCl 10 MG Oral Tablet (Elavil)Indication s:Insomnia, unspecified type take one tablet by mouth at bedtime 100 Tablet 1 4 8:50 AM EDT 11/01/19 24 Active Empagliflozin 10 MG Oral Tablet (Jardiance)Indicat ions:Type 2 diabetes mellitus with hemoglobin A1c goal of less than 8.0% ([facility]) Take 1 Tablet by mouth in the morning. 90 Tablet 3 4 2:25 PM EST 11/02/19 24 Active Ipratropium-Alb[place] rol 0.5-2.5 (3) MG/3ML Inhalation Solution (Duoneb) Inhale 3 mL via nebulizer in the morning and 3 mL at noon and 3 mL in the evening and 3 mL before bedtime. 90 mL 3 02/01/20 24 Active Esomeprazole Magnesium 40 MG Oral Capsule Delayed ReleaseIndications :Gastroesophageal reflux disease without esophagitis Take 1 Capsule by mouth 2 times a day with morning and evening meals. 200 Capsule 1 5 3:26 PM EST 02/08/20 24 Active Isosorbide Mononitrate ER 30 MG Oral Tablet Extended Release 24 Hour (Imdur)Indications :HTN, goal below 140/90 TAKE ONE TABLET BY MOUTH EVERY MORNING 90 Tablet 3 5 1:08 PM EST 02/23/20 24 025 Active dilTIAZem HCl ER Coated Beads 120 MG Oral Capsule Extended Release 24 Hour (Cardizem CD)Indications:Par oxysmal atrial fibrillation (HCC) Take 1 Capsule by mouth in the morning. 100 Capsule 3 4 1:57 PM EDT 02/22/20 24 Active Metoprolol Succinate ER 25 MG Oral Tablet Extended Release 24 Hour (Toprol XL) Take 1 Tablet by mouth 2 times a day. 200 Tablet 3 5 8:01 AM EST 02/22/20 24 Active Pregabalin 25 MG Oral Capsule (Lyrica)Indication s:Type 2 diabetes, controlled, with neuropathy (HCC) TAKE ONE CAPSULE BY MOUTH EVERY MORNING AND TAKE ONE CAPSULE BEFORE BEDTIME 60 Capsule 2 5 12:13 PM EST 03/20/20 24 Active Apixaban 5 MG Oral Tablet (Eliquis)Indicatio ns:Cerebrovascular disease, arteriosclerotic, post-stroke,Paroxy smal atrial fibrillation (HCC) TAKE ONE TABLET BY MOUTH TWICE A DAY 200 Tablet 1 06/02/19 25 Active documented as of this encounter (statuses as of 06/09/2024) Active Problems Problem Noted Date Diagnosed Date [...] Paroxysmal atrial fibrillation 01/10/2019 Secondary polycythemia 09/05/2018 Psoriasis 05/08/2016 Postmenopausal atrophic vaginitis 02/28/2016 Chronic pain of both ankles 02/28/2016 Subclavian artery stenosis, left 12/18/2014 Persistent insomnia 11/01/2014 Atherosclerotic peripheral v ascular disease with intermittent claudication 11/07/2012 Bilateral carotid artery stenosis 12/04/2011 HTN, goal below 140/90 08/05/2010 Overview (11/07/2012): Take all BP's in right arm, per Vascular study Dyslipidemia, goal LDL below 100 08/05/2010 Osteoarthrosis 11/13/2008 CEREBROVASCULAR DZ, POST-STROKE 08/14/2008 Overview (08/16/2008): Modified per CVA protocol #8 LACUNAR STROKE > PERIPH FIELD DEFECT 06/13/2001 Chronic coronary artery disease Overview (03/30/2006): Chronic total RCA Diverticulosis of colon Lung nodule Fatty liver IBS (irritable bowel syndrome) documented as of this encounter (statuses as of 06/09/2024) Resolved Problems Problem Noted Date Diagnosed Date Resolved Date Claudication in peripheral vascular disease 05/05/2019 06/16/2019 Erythrocytosis 08/24/2018 02/17/2024 Overview (02/17/2024): duplicate COPD, moderate 10/17/2015 03/17/2019 Overview: Per COPD GOLD Classification Left subclavian artery occlusion 06/17/2015 12/21/2019 Dyslipidemia, goal LDL below 70 04/09/2009 08/05/2010 Overview (04/09/2009): Per Lipid Taxonomy. Metabolic syndrome 10/26/2007 5 Pain in limb 04/08/2007 11/01/2014 CHEST PAIN NEC 02/24/2006 11/01/2014 COPD, severity to be determined 02/24/2006 09/13/2007 ADVANCE DIRECTIVE INFORMATION 03/09/2005 03/06/2024 Overview (03/09/2005): No, Advance Directive brochure given to patient at prior appointment. Calculus of gallbladder with out mention of cholecystitis or obstruction 04/14/2004 11/30/2014 Overview (04/14/2004): one cm gall stone Mixed dyslipidemia 04/14/2004 9 Overview (04/09/2009): Per Lipid Taxonomy. Carotid stenosis, non-symptomatic 09/21/2002 10/26/2017 Menopause 06/13/2001 11/01/2014 HYPERTENSION NOS 01/25/2001 08/05/2010 Overview (03/20/2009): Modified per HTN protocol #16. INTRACTIBLE GERD;H PYLORI NE G;FAILED ON HI DOSE RANIT OR LOWER DOSE PRILOSEC 01/25/20012018 Insomnia 01/25/2001 04/11/2015 Overview (02/01/2017): ICD-10 update of inactive term INFEC OTITIS EXTERNA NOS 01/25/200106/2014 Tobacco use disorder 01/25/2001 019 Paroxysmal SVT (supraventricular tachycardia) 01/31/2019 Overview (07/19/2006): AFib? diagnosed 30 yrs ago Vertigo 04/11/2015 Cerebrovascular event, ill-d efined, within last 8 weeks 08/16/2008 Overview (08/16/2008): Modified per CVA protocol #8 Herpes zoster 04/11/2015 Pericardial effusion 018 Positive PPD 05/10/2018 documented as of this encounter (statuses as of 06/09/2024) Immunizations Name Administration Dates Next Due COVID-19 mRNA, LNP-s, No Pre serve, 2-Dose Series ([employer] 03/25/2021,08/27/2020,08/06/2020 COVID-19, MRNA-LNP, PF, 30 M CG/0.3 mL, 12 YRS AND ABOVE, IM ([facility] 06/14/2023 Covid-19, Mrna, Lnp-s, Pf, B ivalent, 30 Mcg, IM, 12 yrs and above (Pfizer) 04/28/2022 H1N1 2009 Influenza, IM 05/15/2009 Pneumococcal Conjugate Vacc, 13 Valent (Prevnar) 11/01/2014 Pneumococcal Polysaccharide PPV23 (Pneumovax) 06/30/2016,05/03/2003 Season Influenza, Quad, PF, Adjuvanted, 65+ Yrs, IM (FLUAD) 02/16/2020 Seasonal Influenza Vac., MDV , IM, 0.5 mL (Fluzone) 03/03/2017,01/11/2014,01/31/2013,01/31,01/27/2011,01/30/2010,01/18/2009 ,02/29/2008,01/31/2007,01/31/2006 Seasonal Influenza Virus Vac cine, Unspecified Formulation 01/20/2022,02/06/2021,02/16/2020,01/10,02/14/2018,01/31/2018,03/03/2017 ,02/28/2016,01/11/2014,01/31/2013,100 05/2011,01/27/2011,01/30/2010, 0,01/18/2009,02/29/2008,01/31/2007,05/2005,03/17/2005 Seasonal Influenza, High Dos e, Trivalent, PF, IM (Fluzone HD) 02/18/2024 Seasonal Influenza, Quadriva lent Hd (Fluzone Hd) 01/20/2022,02/06/2021 Seasonal Influenza, Quadriva lent, No Preserve, IM 01/31/2018,02/28/2016,02/05/2015 Seasonal Influenza, Trivalen t, Adjuvanted, 65+ YRS, [...] Answer Date Recorded PHQ Adult Total Score 1 08/27/2023 Hunger Vital Sign Answer Date Recorded Within [...] ages 0-17 years) Not on file 08/27/2023 Food Insecurity Answer Date Recorded Within the past 12 months, y ou worried that your food would run out before you got the money to buy more. Never true 08/27/19 24 Within the past 12 months, t he food you bought just didn't last and you didn't have money to get more. Never true 08/27/2023 Do you need food for this week? 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 Not on file Not on file Not on file Not on file Not on file Not on file Not on file documented as of this encounter Plan of Treatment Upcoming Encounters Date Type Department Care Team (Late st Contact Info) Description 06/20/2024 2:00 PM EST Office Visit Cardiology [address] [place] [address] Enrico De La Torre PA-C [address] [facility] [address] 06/26/2024 1:40 PM EST Office Visit Family Medicine [address] [place] [phone] Christin Welch PA-C [address] [place] [address] [place] [address] 08/29/2024 2:30 PM EDT Office Visit Nephrology [address] [place] [address] Lissa Owens PA-C [address] [place] [address] 08/29/2024 3:00 PM EDT Nurse Only Ancillary [address] [place] [address] [place], Nurse Annual [address] [place] [address] 12/26/2024 2:30 PM EDT Office Visit Cardiology, [facility] [address] [facility] [address] Ashli Alcala CRNP [address] [place] [address] Health Maintenance Due Date Last Done Comments Alpha-1 Antitrypsin 1967 Sigmoidoscopy 1994 Fecal Occult Blood Test 11/06/2006 11/06/2005 DTap/Tdap Vaccines (2 - Td or Tdap) 10/25/2017 10/26/2007 Colonoscopy 01/24/2019 01/24/2018, 09/01, 08/11/2007, Additional history exists Colorectal Cancer Screening 01/24/2019 Zoster Vaccines (3 of 3) 03/10/2019 01/13/2019, 03/03 CKD PHOS USE SMARTSET 52837 12/28/201912/02, 12/25/2018, 12/24/2018, Additional history exists Cologuard 11/04/2020 11/04/2017 Mammogram 11/19/2023 11/18/2022, 0708/2022, 11/04/2022, Additional history exists Diabetic Eye Exam 02/23/2024 02/22/2023, , 07/02/2021, Additional history exists CKD HGB USE SMARTSET 07682 05/12/202405/12, 05/12/2023, 09/24/2021, Additional history exists HbA1c 05/17/2024 11/15/2023, 05/03, 08/11/2022, Additional history exists Adult Wellness Visit 08/26/2024 08/27/2023, 08/25/2022, 08/25/2021, Additional history exists Depression Screening 08/26/2024 08/27/2023, 08/27/19 24 Diabetic Foot Exam 08/26/2024 08/27/2023, 0 08/25/2022, 08/25/2021 GFR 09/07/2024 03/10/2024, 01/03, 11/15/2023, Additional history exists Albumin/Creatinine Ratio 03/10/2025 024, 01/31/2024, 11/15/2023, Additional history exists O2 ASSESSMENT COMPLETED IN PAST YEAR FOR COPD 03/10/2025 03/10/2024 DXA Scan 11/21/2025 11/21/2018, 11/01, 11/20/2010, Additional history exists Postponed from 11/21/2021 (Other) Pneumococcal Vaccine: 50+ Years Completed 06/30/2016, 11/01/2014, 05/03/2003 RETIRED - COLONOSCOPY-ANNUAL AGES 18-100 Discontinued 01/24/2018, 09/28/2007, 08/11/2007, Additional history exists Influenza Vaccine (FLU shot) Completed 02/18/2024, 01/20/2022, 01/20/2022, Additional history exists COVID-19 Vaccine Completed 03/27/2024, 04/2024, 04/28/2022, Additional history exists HPV (Gardasil) Vaccine Aged [...] Procedure Name Priority Date/Time Associated Diagnosis Comments CARDIOLOGY SCANNED RESULT 06/08/2024 documented in this encounter Results * CARDIOLOGY SCANNED RESULT (06/08/2024) 06/08/2024 Regine Barcenas DO OTHER Final R esult documented in this encounter Care Teams Sneller Hand Relationship Specialty Start Date End Date Daysi Pham MD [address] [place] [address] [place] [phone] PCP - General Family Medicine 07/01/17 documented as of this encounter
--- OUTSIDE RECORDS SUMMARY | 2024-06-26 22:27 | External Medical Summary | Summary of Care ---
Author Name Unknown Organization [facility] Address [address] [place] [address] Phone [phone] Care Team Providers Care Turning Sander Operator Name Role Phone Daysi Pham MD Primary Care Provide r Reason for Visit * Reason Comments Medication Refill Encounter Details Date Type Department Care Team (Late st Contact Info) Description 06/11/2024 Refill Family Medicine [address] [phone] Daysi Pham MD [address] [place] [address] [place] [phone] Type 2 diabetes, controlled, with neuropathy (HCC) Allergies Active Allergy Reactions Criticality Noted Date Comments Amoxicillin Rash 11/19/2011 Levofloxacin Other (Please comment) 11/13/2013 Weakness, lightheadedness, nausea Niacin Er (Antihyperlipidemic) 01/30/2010 Burned throat. Prednisone 09/03/2012 Blood pressure went up. Bupropion Hcl 01/30/2010 documented as of this encounter (statuses as of 2024) Medications VITAMIN B COMPLEX PO CAPSIndications:evans pplementation [...] hemoglobin A1c goal of less than 8.0% ([facility]) Use once a day Dx: [...] Capsule Take by mouth. Activ e Ipratropium [place] 0.03 % Nasal Solution (Atrovent)Indicati ons:Rhinorrhea ADMINISTER 2 SPRAYS INTO EACH NOSTRIL 4 TIMES A DAY NEEDED FOR RHINITIS. FOR RUNNY NOSE 90 mL 1 03/15/20 23 Active Ipratropium-[place] rol 20-100 MCG/ACT Inhalation Aerosol Solution (Combivent Respimat)Indicatio ns:COPD, group B, by GOLD 2017 classification ([facility]) INHALE 1 PUFF BY MOUTH IN THE MORNING, 1 PUFF AT NOON, 1 PUFF IN THE EVENING, AND 1 PUFF BEFORE BEDTIME 12 g 1 4 5:02 PM EST 04/16/20 23 Active OneTouch Verio In Vitro Strip (Glucose Blood)Indications: Type 2 diabetes mellitus with hemoglobin A1c goal of less than 8.0% ([facility]) USE TO TEST BLOOD SUGAR [...] 10/18/19 24 025 Active OneTouch Delica Plus [id number] ns:Type 2 diabetes mellitus with hemoglobin A1c goal of less than 8.0% ([facility]) USE TO TEST BLOOD SUGAR ONCE A DAY DIRECTED 100 Each 1 10/30/19 24 025 Active Empagliflozin 10 MG Oral Tablet (Jardiance)Indicat ions:Type 2 diabetes mellitus with hemoglobin A1c goal of less than 8.0% ([facility]) Take 1 Tablet by mouth in the [...] 5 8:01 AM EST 02/22/20 24 Active Apixaban 5 MG Oral Tablet (Eliquis)Indicatio ns:Cerebrovascular disease, arteriosclerotic, post-stroke,Paroxy smal atrial fibrillation (HCC) TAKE ONE TABLET BY MOUTH TWICE A DAY 200 Tablet 1 06/02/19 25 Active Amitriptyline HCl 10 MG Oral Tablet (Elavil)Indication s:Insomnia, unspecified type take one tablet by mouth at bedtime 100 Tablet 1 06/09/19 25 Active Pregabalin 25 MG Oral Capsule (Lyrica)Indication s:Type 2 diabetes, controlled, with neuropathy (HCC) TAKE ONE CAPSULE BY MOUTH EVERY MORNING AND TAKE ONE CAPSULE BEFORE BEDTIME 60 Capsule 2 06/12/19 25 Active Pregabalin 25 MG Oral Capsule (Lyrica)Indication s:Type 2 diabetes, controlled, with neuropathy (HCC) TAKE ONE CAPSULE BY MOUTH EVERY MORNING AND TAKE ONE CAPSULE BEFORE BEDTIME 60 Capsule 2 5 12:13 PM EST 03/20/20 24 025 Discontin ued(Refil l) documented as of this encounter (statuses as of 2024) Active Problems Problem Noted Date Diagnosed Date [...] as of this encounter (statuses as of 2024) Resolved Problems Problem Noted Date Diagnosed Date [...] as of this encounter (statuses as of 2024) Immunizations Name Administration Dates Next Due COVID-19 mRNA, LNP-s, No Pre serve, 2-Dose Series ([employer]) 03/25/2021,08/27/2020,08/06/2020 COVID-19, MRNA-LNP, PF, 30 M CG/0.3 mL, 12 YRS AND ABOVE, IM ([facility]) 06/14/2023 Covid-19, Mrna, Lnp-s, Pf, B ivalent, [...] Formulation 01/20/2022,02/06/2021,02/16/2020,01/10,02/14/2018,01/31/2018,03/03/2017 ,02/28/2016,01/11/2014,01/31/2013,10/0 05/2011,01/27/2011,01/30/2010, 0,01/18/2009,02/29/2008,01/31/2007,05/2005,03/17/2005 Seasonal Influenza, High Dos e, [...] 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 Not on file Not on file Not on file Not on file Not on file Not on file Not on file documented as of this encounter Miscellaneous Notes * Telephone Encounter - Daysi Pham MD - 2024 11:03 AM EST Signed Prescriptions: Disp Refills Pregabalin 25 MG Oral Capsule (Lyrica) 60 Cap*2 Sig: TAKE ONE CAPSULE BY MOUTH EVERY MORNING AND TAKE ONE CAPSULE BEFORE BEDTIME Authorizing Provider: DAYSI PHAM * Telephone Encounter - Justina Ochoa [facility] - 2024 10:39 AM ESTPending Prescriptions: Disp Refills Pregabalin 25 MG Oral Capsule (Lyrica) 60 Cap*2 Sig: TAKE ONE CAPSULE BY MOUTH EVERY MORNING AND TAKE ONE CAPSULE BEFORE BEDTIME * Telephone Encounter - Justina Ochoa RPh - 2024 10:39 AM EST I have reviewed the patients controlled substance dispensing history in the Prescription Drug Monitoring Program in compliance with the [facility] regulations before prescribing a controlled substance. PDMP checked on 2024. Pending Prescriptions: Disp Refills Pregabalin 25 MG Oral Capsule (Lyrica) 60 Cap*2 Sig: TAKE ONE CAPSULE BY MOUTH EVERY MORNING AND TAKE ONE CAPSULE BEFORE BEDTIME Last Visit: 12/06/2023 (in office), Visit date not found (telemedicine) Next Visit: 06/26/2024 Date medication was last filled: 05/15/24 Date medication is due for refill: 06/13/24 Pharmacy: [facility] Is this request for a controlled substance? Yes and Urine Drug Screen Not completed Toxicology results: No results found. However, due to the size of the patient record, not all encounters were searched.Please check Results Review for a complete set of results. Please approve if appropriate. Thanks, Justina Ochoa Clinical Pharmacist [facility] ([facility] [phone] 2024, 10:39 AM documented in this encounter Plan of Treatment Upcoming Encounters Date Type Department Care Team (Late st Contact Info) Description 06/20/2024 2:00 PM EST Office Visit Cardiology [address] [place] [address] Enrico De La Torre PA-C [address] [place] [address] 06/26/2024 1:40 PM EST Office Visit Family Medicine [address] [place] [phone] Christin Welch PA-C [address] [place] [address] [place] [address] 08/29/2024 2:30 PM EDT Office Visit Nephrology [address] [place] [address] Lissa Owens PA-C [address] [place] [address] 08/29/2024 3:00 PM EDT Nurse Only Ancillary [address] [place] [address] [place], Nurse Annual Wellness [address] [place] [address] [place] [address] 12/26/2024 2:30 PM EDT Office Visit Cardiology, [facility] [address] [facility] [place] [address] Ashli Alcala CRNP [address] [place] [address] Health Maintenance Due Date Last Done Comments Alpha-1 Antitrypsin 1967 DTap/Tdap Vaccines (2 - Td or Tdap) 10/25/2017 10/26/2007 Colonoscopy 01/24/2019 01/24/2018, 09/01, 08/11/2007, Additional history exists Zoster Vaccines (3 of 3) 03/10/2019 01/13/2019, 03/03 CKD PHOS USE SMARTSET 62072 12/28/201912/02, 12/25/2018, 12/24/2018, Additional history exists Diabetic Eye Exam 02/23/2024 02/22/2023, , 07/02/2021, Additional history exists CKD HGB USE SMARTSET 29092 05/12/202405/12, 05/12/2023, 09/24/2021, Additional history exists HbA1c [...] Additional history exists Postponed from 11/21/2021 (Other) Fecal Occult Blood Test Discontinued 11/06/2005 Pneumococcal Vaccine: 50+ Years Completed 06/30/2016, 11/01/2014, 05/03/2003 Cologuard Discontinued 11/04/2017 RETIRED - COLONOSCOPY-ANNUAL AGES 18-100 Discontinued 01/24/2018, [...] uncontrolled documented in this encounter Care Teams Turning Sander Operator Relationship Specialty Start Date End Date Daysi Pham MD [address] [place] [address] [place] [address] PCP - General Family Medicine 07/01/17 documented as of this encounter
--- OUTSIDE RECORDS SUMMARY | 2024-06-26 22:27 | External Medical Summary | Summary of Care ---
Author Name Unknown Organization [facility] Address [address] [place] [address] Phone [phone] Care Team Providers Care Metal Pattern Maker Name Role Phone Daysi Pham MD Primary Care Provide r Reason for Visit * Reason Onset Date Comments Advice 06/15/2024 Encounter Details Date Type Department Care Team (Late st Contact Info) Description 06/15/2024 Telephone Family Medicine [address] [phone] Daysi Pham MD [address] [place] [address] [place] [address] Advice Allergies Active Allergy Reactions Criticality Noted Date Comments Amoxicillin Rash 11/19/2011 Levofloxacin Other (Please comment) 11/13/2013 Weakness, lightheadedness, nausea Niacin Er (Antihyperlipidemic) 01/30/2010 Burned throat. Prednisone 09/03/2012 Blood pressure went up. Bupropion Hcl 01/30/2010 documented as of this encounter (statuses as of 06/20/2024) Medications VITAMIN B COMPLEX PO CAPSIndications:evans pplementation [...] Capsule Take by mouth. Activ e Ipratropium [place] 0.03 % Nasal Solution (Atrovent)Indicati ons:Rhinorrhea ADMINISTER 2 SPRAYS INTO EACH NOSTRIL 4 TIMES A DAY NEEDED FOR RHINITIS. FOR RUNNY NOSE 90 mL 1 03/15/20 23 Active Ipratropium-Albute rol 20-100 MCG/ACT Inhalation Aerosol Solution (Combivent Respimat)Indicatio ns:COPD, group B, by GOLD 2017 classification ([facility], [...] 10/18/19 24 025 Active OneTouch Delica Plus [id number] ns:Type 2 diabetes mellitus with hemoglobin A1c goal of less than 8.0% ([facility]) USE TO TEST BLOOD SUGAR ONCE A DAY DIRECTED 100 Each 1 10/30/19 24 025 Active Empagliflozin 10 MG Oral Tablet (Jardiance)Indicat ions:Type 2 diabetes mellitus with hemoglobin A1c goal of less than 8.0% ([facility]) Take 1 Tablet by mouth in the [...] mouth in the morning. 100 Capsule 3 5 2:38 PM EST 02/22/20 24 Active Metoprolol Succinate ER 25 [...] by mouth at bedtime 100 Tablet 1 5 2:12 PM EST 06/09/19 25 Active Pregabalin 25 MG Oral Capsule (Lyrica)Indication s:Type 2 diabetes, controlled, with neuropathy (HCC) TAKE ONE CAPSULE BY MOUTH EVERY MORNING AND TAKE ONE CAPSULE BEFORE BEDTIME 60 Capsule 2 5 2:44 PM EST 06/12/19 25 Active Azithromycin 250 MG Oral Tablet (Zithromax Z-Joo) Take two tablets by mouth on first day, then 1 tablet daily until gone 6 Tablet 06/15/19 25 Active documented as of this encounter (statuses as of 06/20/2024) Active Problems Problem Noted Date Diagnosed Date [...] as of this encounter (statuses as of 06/20/2024) Resolved Problems Problem Noted Date Diagnosed Date [...] as of this encounter (statuses as of 06/20/2024) Immunizations Name Administration Dates Next Due COVID-19 mRNA, LNP-s, No Pre serve, 2-Dose Series (Pfizer) 03/25/2021,08/27/2020,08/06/2020 COVID-19, MRNA-LNP, PF, 30 M CG/0.3 mL, 12 YRS AND ABOVE, IM [facility] 06/14/2023 Covid-19, Mrna, Lnp-s, Pf, B ivalent, [...] Unspecified Formulation 01/20/2022,02/06/2021,02/16/2020,01/10,02/14/2018,01/31/2018,03/03/2017 ,02/28/2016,01/11/2014,01/31/2013,1005/2011,01/27/2011,01/30/2010, 0,01/18/2009,02/29/2008,01/31/2007,05/2005,03/17/2005 Seasonal Influenza, High Dos e, Trivalent, [...] 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 Patient has no further questions. * Telephone Encounter - Daysi Pham MD - 06/15/2024 4:31 PM EST Sent Zithromax. Needs appt if not improving. * Telephone Encounter - Marcela Maguire RN - 06/15/2024 3:18 PM EST COUGH: Yes Cough Symptoms: Dry How long has your cough lasted? 2 days Patient's Action(s) What have you done or taken for this problem? Nebulizer Mucinex Additional Comment(s) Additional Comments: Symptoms started a week ago. Wheezing and some shortness of breath. Oxygen dependent. Does not want to leave the home. A virus she caught about a week ago during a doctor visit. Has not been able to shake it off. * Telephone Encounter - Hollie Gentile OSA - 06/15/2024 12:58 PM EST Patient is requesting an antibiotic. See call details documented in this encounter Plan of Treatment Upcoming Encounters Date Type Department Care Team (Late st Contact Info) Description 06/27/2024 2:40 PM EST Office Visit Family Medicine [address] [place] [phone] Christin Welch PA-C [address] [place] [address] [place] [address] 08/29/2024 2:30 PM EDT Office Visit Nephrology [address] [place] [address] Lissa Owens PA-C [address] [place] [address] 08/29/2024 3:00 PM EDT Nurse Only Ancillary [address] [place] [address] [place], Nurse Annual [address] [place] [address] 12/12/2024 3:30 PM EDT Office Visit Cardiology [address] [place] [address] Enrico De La Torre PA-C [address] [place] [address] 12/26/2024 2:30 PM EDT Office Visit Cardiology, [facility] [address] [place] [address] Ashli Alcala CRNP [address] [place] [address] [place] [address] Health Maintenance Due Date Last Done Comments Alpha-1 Antitrypsin 1967 DTap/Tdap Vaccines (2 - Td or Tdap) 10/25/2017 10/26/2007 Colonoscopy 01/24/2019 01/24/2018, 09/01, 08/11/2007, Additional history exists Zoster Vaccines (3 of 3) 03/10/2019 01/13/2019, 03/03 CKD PHOS USE SMARTSET 95209 12/28/201912/02, 12/25/2018, 12/24/2018, Additional history exists Diabetic Eye Exam 02/23/2024 02/22/2023, , 07/02/2021, Additional history exists CKD HGB USE SMARTSET 53567 05/12/202405/12, 05/12/2023, 09/24/2021, Additional history exists HbA1c 05/17/2024 11/15/2023, 05/03, 08/11/2022, Additional history exists Adult Wellness Visit 08/26/2024 08/27/2023, 08/25/2022, 08/25/2021, Additional history exists Depression Screening 08/26/2024 08/27/2023, 08/27/19 24 Diabetic Foot Exam 08/26/2024 08/27/2023, 0 08/25/2022, 08/25/2021 GFR 09/07/2024 03/10/2024, 01/03, 11/15/2023, Additional history exists COVID-19 Vaccine ( season) 2024 03/27/2024, 06/14/2023, 04/28/2022, Additional history exists Albumin/Creatinine Ratio 03/10/2025 024, [...] Completed 02/18/2024, 01/20/2022, 01/20/2022, Additional history exists HPV (Gardasil) Vaccine Aged Out No lo nger eligible based on patient's age to complete this topic Hepatitis B Vaccine Aged Out No longe r eligible based on patient's age to complete this topic MENINGOCOCCAL (MENACTRA/MENVEO) Aged Out No longer eligible based on patient's age to complete this topic Meningitis B Vaccine (Bexsero/Trumemba) Aged Out No longer eligible based on patient's age to complete this topic documented as of this encounter Medical Devices Not on filedocumented as of this encounter Care Teams Metal Pattern Maker Relationship Specialty Start Date End Date Daysi Pham MD [address] [place] [address] [place] [address] PCP - General Family Medicine 07/01/17 documented as of this encounter
--- OUTSIDE RECORDS SUMMARY | 2024-06-26 22:27 | External Medical Summary | Summary of Care ---
Author Name Unknown Organization [facility] Address [address] [place] [address] Phone [phone] Care Team Providers Care Product Management Consultant Name Role Phone Daysi Pham MD Primary Care Provide r Reason for Visit * Reason Comments Medication Refill Encounter Details Date Type Department Care Team (Late st Contact Info) Description 06/09/2024 Refill Family Medicine [address] [phone] Daysi Pham MD [address] [place] [address] [place] [phone] Insomnia, unspecified type Allergies Active Allergy Reactions [...] A1c goal of less than 8.0% ([facility]) Use once a day Dx: [...] Capsule Take by mouth. Activ e Ipratropium [place] 0.03 % Nasal Solution (Atrovent)Indicati ons:Rhinorrhea ADMINISTER 2 SPRAYS INTO EACH NOSTRIL 4 TIMES A DAY NEEDED FOR RHINITIS. FOR RUNNY NOSE 90 mL 1 03/15/20 23 Active Ipratropium-[place] rol 20-100 MCG/ACT Inhalation Aerosol Solution (Combivent Respimat)Indicatio ns:COPD, group B, by GOLD 2017 classification ([facility]) INHALE 1 PUFF BY MOUTH IN THE MORNING, 1 PUFF AT NOON, 1 PUFF IN THE EVENING, AND 1 PUFF BEFORE BEDTIME 12 g 1 4 5:02 PM EST 04/16/20 23 Active OneTouch Verio In Vitro Strip (Glucose Blood)Indications: Type 2 diabetes mellitus with hemoglobin A1c goal of less than 8.0% ([facility]) USE TO TEST BLOOD SUGAR [...] 10/18/19 24 025 Active OneTouch Delica Plus [id number] ns:Type 2 diabetes mellitus with hemoglobin A1c goal of less than 8.0% ([facility]) USE TO TEST BLOOD SUGAR ONCE A DAY DIRECTED 100 Each 1 10/30/19 24 025 Active Empagliflozin 10 MG Oral Tablet (Jardiance)Indicat ions:Type 2 diabetes mellitus with hemoglobin A1c goal of less than 8.0% ([facility]) Take 1 Tablet by mouth [...] bedtime 100 Tablet 1 06/09/19 25 Active Amitriptyline HCl 10 MG Oral Tablet (Elavil)Indication s:Insomnia, unspecified type take one tablet by mouth at bedtime 100 Tablet 1 4 8:50 AM EDT 11/01/19 24 025 Discontin ued(Refil l) documented as [...] mRNA, LNP-s, No Pre serve, 2-Dose Series ([employer]) 03/25/2021,08/27/2020,08/06/2020 COVID-19, MRNA-LNP, PF, 30 M CG/0.3 mL, 12 YRS AND ABOVE, IM ([facility]) 06/14/2023 Covid-19, Mrna, Lnp-s, Pf, B ivalent, [...] 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 Not on file Not on file Not on file Not on file Not on file Not on file documented as of this encounter Miscellaneous Notes * Telephone Encounter - Melanie Yun RPh - 06/09/2024 10:43 AM EST Signed Prescriptions: Disp Refills Amitriptyline HCl 10 MG Oral Tablet (Elavi*100 Ta*1 Sig: take one tablet by mouth at bedtimeAuthorizing Provider: DAYSI PHAM User: MELANIE YUN documented in this encounter Plan of Treatment Upcoming Encounters Date Type Department Care Team (Late st Contact Info) Description 06/20/2024 2:00 PM EST Office Visit Cardiology [address] [place] [address] Enrico De La Torre PA-C [address] [place] [address] 06/26/2024 1:40 PM EST Office Visit Family Medicine [address] [place] [phone] Christin Welch PA-C [address] [place] [address] [place] [address] 08/29/2024 2:30 PM EDT Office Visit Nephrology [address] [place] [address] Lissa Owens PA-C [address] [place] [address] 08/29/2024 3:00 PM EDT Nurse Only Ancillary [address] [place] [address] [place], Nurse Annual Wellness [address] [place] [address] [place] [address] 12/26/2024 2:30 PM EDT Office Visit Cardiology, [facility] [address] [facility] [place] [address] Ashli Alcala CRNP [facility] [place] [phone] Health Maintenance Due Date Last Done Comments Alpha-1 Antitrypsin 1967 Sigmoidoscopy 1994 Fecal Occult Blood Test 11/06/2006 11/06/2005 DTap/Tdap Vaccines (2 - Td or Tdap) 10/25/2017 10/26/2007 Colonoscopy 01/24/2019 01/24/2018, 09/01, 08/11/2007, Additional history exists Colorectal Cancer Screening 01/24/2019 Zoster Vaccines (3 of 3) 03/10/2019 01/13/2019, 03/03 CKD PHOS USE SMARTSET 60565 12/28/201912/02, 12/25/2018, 12/24/2018, Additional history exists Cologuard 11/04/2020 11/04/2017 Mammogram 11/19/2023 11/18/2022, 07/0 08/2022, 11/04/2022, Additional history exists Diabetic Eye Exam 02/23/2024 02/22/2023, , 07/02/2021, Additional history exists CKD HGB USE SMARTSET 89723 05/12/202405/12, 05/12/2023, 09/24/2021, Additional history exists HbA1c 05/17/2024 11/15/2023, 05/03, 08/11/2022, Additional history exists Adult Wellness Visit 08/26/2024 08/27/2023, 08/25/2022, 08/25/2021, Additional history exists Depression Screening 08/26/2024 08/27/2023, 08/27/19 24 Diabetic Foot Exam 08/26/2024 08/27/2023, 0 08/25/2022, 08/25/2021 GFR 09/07/2024 03/10/2024, 093 , 11/15/2023, Additional history exists Albumin/Creatinine Ratio 03/10/2025 [...] type documented in this encounter Care Teams Product Management Consultant Relationship Specialty Start Date End Date Daysi Pham MD [address] [place] [address] [place] [phone] PCP - General Family Medicine 07/01/17 documented as of this encounter
--- OUTSIDE RECORDS SUMMARY | 2024-06-26 22:27 | External Medical Summary | Summary of Care ---
Author Name Unknown Organization [facility] Address [address] [place] [address] Phone [phone] Care Team Providers Care Fruit Distributor Name Role Phone Daysi Pham MD Primary Care Provide r Encounter Details Date Type Department Care Team (Late st Contact Info) Description 06/13/2024 Population Health External Data Unspecified Department Allergies Active Allergy Reactions Criticality Noted Date Comments Amoxicillin Rash 11/19/2011 Levofloxacin Other (Please comment) 11/13/2013 Weakness, lightheadedness, nausea Niacin Er (Antihyperlipidemic) 01/30/2010 Burned throat. Prednisone 09/03/2012 Blood pressure went up. Bupropion Hcl 01/30/2010 documented as of this encounter (statuses as of 06/14/2024) Medications VITAMIN B COMPLEX PO CAPSIndications:evans pplementation [...] hemoglobin A1c goal of less than 8.0% ([facility]) Use once a day Dx: [...] Capsule Take by mouth. Activ e Ipratropium [place] 0.03 % Nasal Solution (Atrovent)Indicati ons:Rhinorrhea ADMINISTER 2 SPRAYS INTO EACH NOSTRIL 4 TIMES A DAY NEEDED FOR RHINITIS. FOR RUNNY NOSE 90 mL 1 03/15/20 23 Active Ipratropium-[place] rol 20-100 MCG/ACT Inhalation Aerosol Solution (Combivent Respimat)Indicatio ns:COPD, group B, by GOLD 2017 classification ([facility]) INHALE 1 PUFF BY MOUTH [...] 10/18/19 24 025 Active OneTouch Delica Plus [id number] ns:Type 2 diabetes mellitus with hemoglobin A1c [...] 5 2:44 PM EST 06/12/19 25 Active documented as of this encounter (statuses as of 06/14/2024) Active Problems Problem Noted Date Diagnosed Date [...] as of this encounter (statuses as of 06/14/2024) Resolved Problems Problem Noted Date Diagnosed Date [...] as of this encounter (statuses as of 06/14/2024) Immunizations Name Administration Dates Next Due COVID-19 mRNA, LNP-s, No Pre serve, 2-Dose Series ([employer]) 03/25/2021,08/27/2020,08/06/2020 COVID-19, MRNA-LNP, PF, 30 M CG/0.3 mL, 12 YRS AND ABOVE, IM (Dr. TATTOFF-Comirnaty) 06/14/2023 Covid-19, Mrna, Lnp-s, Pf, B ivalent, [...] Unspecified Formulation 01/20/2022,02/06/2021,02/16/2020,01/10,02/14/2018,01/31/2018,03/03/2017 ,02/28/2016,01/11/2014,01/31/2013,05/2011,01/27/2011,01/30/2010, 0,01/18/2009,02/29/2008,01/31/2007,05/2005,03/17/2005 Seasonal Influenza, High Dos e, Trivalent, [...] No 08/27/2023 Does the household have a [facility] source of income? 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 Not on file Not on file Not on file Not on file Not on file Not on file documented as of this encounter Plan of Treatment Upcoming Encounters Date Type Department Care Team (Late st Contact Info) Description 06/20/2024 2:00 PM EST Office Visit Cardiology [address] [place] [address] Enrico De La Torre PA-C [address] [facility] [place] [address] 06/27/2024 2:40 PM EST Office Visit Family Medicine [address] [place] [phone] Christin Welch PA-C [address] [place] [address] [place] [address] 08/29/2024 2:30 PM EDT Office Visit Nephrology [address] [place] [address] Lissa Owens PA-C [address] [place] [address] 08/29/2024 3:00 PM EDT Nurse Only Ancillary [address] [place] [address] [place], Nurse Annual Wellness [address] [place] [address] [place] [address] 12/26/2024 2:30 PM EDT Office Visit Cardiology, [facility] [address] [place] [address] Ashli Alcala CRNP [address] [place] [address] [place] [phone] Health Maintenance Due Date Last Done Comments Alpha-1 Antitrypsin 1967 DTap/Tdap Vaccines (2 - Td or Tdap) 10/25/2017 10/26/2007 Colonoscopy 01/24/2019 01/24/2018, 09/01, 08/11/2007, Additional history exists Zoster Vaccines (3 of 3) 03/10/2019 01/13/2019, 03/03 CKD PHOS USE SMARTSET 24696 12/28/201912/02, 12/25/2018, 12/24/2018, Additional history exists Diabetic Eye Exam 02/23/2024 02/22/2023, , 07/02/2021, Additional history exists CKD HGB USE SMARTSET 89049 05/12/202405/12, 05/12/2023, 09/24/2021, Additional history exists HbA1c [...] filedocumented as of this encounter Care Teams Fruit Distributor Relationship Specialty Start Date End Date Daysi Pham MD [address] [place] [address] [place] [phone] PCP - General Family Medicine 07/01/17 documented as of this encounter
--- OUTSIDE RECORDS SUMMARY | 2024-06-26 22:28 | External Medical Summary | Summary of Care ---
Author Name Unknown Organization [facility] Address [address] [place] [address] Phone [phone] Care Team Providers Care Medical Instrument Technician Name Role Phone Daysi Pham MD Primary Care Provide r Reason for Visit * Reason Comments Pacemaker Clinic Encounter Details Date Type Department Care Team (Latest Contact Info) Description 06/06/2024 2:00 PM EST Cardiac Studies Cardiology, [facility] [address] [place] [address] [facility] [address] [place] [address] Paroxysmal atrial fibrillation (HCC)*; Tachy-maribel syndrome (HCC); Ischemic cardiomyopathy; Permanent atrial fibrillation (HCC); Cardiac pacemaker in situ Allergies Active Allergy Reactions Criticality Noted Date Comments Amoxicillin Rash 11/19/2011 Levofloxacin Other (Please comment) 11/13/2013 Weakness, lightheadedness, nausea Niacin Er (Antihyperlipidemic) 01/30/2010 Burned throat. Prednisone 09/03/2012 Blood pressure went up. Bupropion Hcl 01/30/2010 documented as of this encounter (statuses as of 06/07/2024) Medications VITAMIN B COMPLEX PO CAPSIndications:evans pplementation [...] goal of less than 8.0% ([facility]) Use once a day Dx: [...] Capsule Take by mouth. Activ e Ipratropium [place] 0.03 % Nasal Solution (Atrovent)Indicati ons:Rhinorrhea ADMINISTER 2 SPRAYS INTO EACH NOSTRIL 4 TIMES A DAY NEEDED FOR RHINITIS. FOR RUNNY NOSE 90 mL 1 03/15/20 23 Active Ipratropium-[place] rol 20-100 MCG/ACT Inhalation Aerosol Solution (Combivent Respimat)Indicatio ns:COPD, group B, by GOLD 2017 classification ([facility]) INHALE 1 PUFF BY MOUTH IN THE MORNING, 1 PUFF AT NOON, 1 PUFF IN THE EVENING, AND 1 PUFF BEFORE BEDTIME 12 g 1 4 5:02 PM EST 04/16/20 23 Active OneTouch Verio In Vitro Strip (Glucose Blood)Indications: Type 2 diabetes mellitus with hemoglobin A1c goal of less than 8.0% ([facility]) USE TO TEST BLOOD SUGAR [...] 10/18/19 24 025 Active OneTouch Delica Plus [id number] ns:Type 2 diabetes mellitus with hemoglobin A1c goal of less than 8.0% ([facility]) USE TO TEST BLOOD SUGAR [...] goal of less than 8.0% ([facility]) Take 1 Tablet by mouth [...] as of this encounter (statuses as of 06/07/2024) Active Problems Problem Noted Date Diagnosed Date [...] as of this encounter (statuses as of 06/07/2024) Resolved Problems Problem Noted Date Diagnosed Date [...] as of this encounter (statuses as of 06/07/2024) Immunizations Name Administration Dates Next Due COVID-19 mRNA, LNP-s, No Pre serve, 2-Dose Series ([employer]) 03/25/2021,08/27/2020,08/06/2020 COVID-19, MRNA-LNP, PF, 30 M CG/0.3 mL, 12 YRS AND ABOVE, IM (PFIZER-Comirnaty) [...] ages 0-17 years) Not on file 08/27/2023 Comments No Sex and Gender Information Value Date Recorded Sex Assigned at Female 07/16/2020 2:10 PM EDT Legal Sex Female 5:28 AM EST Gender Identity Female 07/16/2020 2:10 PM EDT Sexual Orientation Straight 07/16/2020 2: 10 PM EDT 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 Providers please see scanned report in the Scans tab. Left pectoral device pocket is healthy without erythema, swelling, pain, or drainage. Battery longevity 7.2-11.3 years Patient in permanent AF AC: Eliquis documented in this encounter Plan of Treatment Upcoming Encounters Date Type Department Care Team (Late st Contact Info) Description 06/20/2024 2:00 PM EST Office Visit Cardiology [address] [place] [address] Enrico De La Torre PA-C [address] [place] [address] 06/26/2024 1:40 PM EST Office Visit Family Medicine [address] [place] [phone] Christin Welch PA-C [address] [place] [address] [place] [address] 08/29/2024 2:30 PM EDT Office Visit Nephrology [address] [place] [address] Lissa Owens PA-C [address] [place] [address] 08/29/2024 3:00 PM EDT Nurse Only Ancillary [place] [address] [place] [address] [place], Nurse [address] [place] [address] 12/26/2024 2:30 PM EDT Office Visit Cardiology, [facility] [address] [facility] [place] [address] Ashli Alcala CRNP [address] [place] [address] Scheduled Orders Name Type Priority Associated Diagnoses Orde r Schedule DUAL-LEAD PACEMAKER + REPROGRAM Procedures Routine Paroxysmal atrial fibrillation (HCC) Tachy-maribel syndrome (HCC) Ischemic cardiomyopathy Permanent atrial fibrillation (HCC) Cardiac pacemaker in situ Ordered: 06/06/2024 Health Maintenance Due Date Last Done Comments Alpha-1 Antitrypsin 1967 Sigmoidoscopy 1994 Fecal Occult Blood Test 11/06/2006 11/06/2005 DTap/Tdap Vaccines (2 - Td or Tdap) 10/25/2017 10/26/2007 Colonoscopy 01/24/2019 01/24/2018, 09/01, 08/11/2007, Additional history exists Colorectal Cancer Screening 01/24/2019 Zoster Vaccines (3 of 3) 03/10/2019 01/13/2019, 03/03 CKD PHOS USE SMARTSET 47491 12/28/201912/02, 12/25/2018, 12/24/2018, Additional history exists Cologuard 11/04/2020 11/04/2017 Mammogram 11/19/2023 11/18/2022, 07/0 08/2022, 11/04/2022, Additional history exists Diabetic Eye Exam 02/23/2024 02/22/2023, , 07/02/2021, Additional history exists CKD HGB USE SMARTSET 06715 05/12/202405/12, 05/12/2023, 09/24/2021, Additional history exists HbA1c [...] as of this encounter Visit Diagnoses Diagnosis Paroxysmal atrial fibrillation (HCC)- Primary Atrial fibrillation Tachy-maribel syndrome (HCC) Sinoatrial node dysfunction Ischemic cardiomyopathy Other specified forms of chronic ischemic heart disease Permanent atrial fibrillation (HCC) Atrial fibrillation Cardiac pacemaker in situ documented in this encounter Care Teams Medical Instrument Technician Relationship Specialty Start Date End Date Daysi Pham MD [address] [place] [address] [place] [phone] PCP - General Family Medicine 07/01/17 documented as of this encounter
--- OUTSIDE RECORDS SUMMARY | 2024-06-26 22:28 | External Medical Summary | Summary of Care ---
Author Name Unknown Organization [facility] Address [address] [place] [address] Phone [phone] Care Team Providers Care Personal Support Worker Name Role Phone Daysi Pham MD Primary Care Provide r Reason for Visit * Reason Comments Medication Refill Encounter Details Date Type Department Care Team (Late st Contact Info) Description 06/02/2024 Refill Family Medicine [address] [phone] Daysi Pham MD [address] [place] [address] [place] [id number] CEREBROVASCULAR DZ, POST-STROKE; Paroxysmal atrial fibrillation (HCC) Allergies Active Allergy Reactions Criticality Noted Date Comments Amoxicillin Rash 11/19/2011 Levofloxacin Other (Please comment) 11/13/2013 Weakness, lightheadedness, nausea Niacin Er (Antihyperlipidemic) 01/30/2010 Burned throat. Prednisone 09/03/2012 Blood pressure went up. Bupropion Hcl 01/30/2010 documented as of this encounter (statuses as of 06/02/2024) Medications VITAMIN B COMPLEX PO CAPSIndications:evans pplementation [...] hemoglobin A1c goal of less than 8.0% ([facility]) Use once a day Dx: E11.9 [...] Capsule Take by mouth. Activ e Ipratropium [place] 0.03 % Nasal Solution (Atrovent)Indicati ons:Rhinorrhea ADMINISTER 2 SPRAYS INTO EACH NOSTRIL 4 TIMES A DAY NEEDED FOR RHINITIS. FOR RUNNY NOSE 90 mL 1 03/15/20 23 Active Ipratropium-[place] rol 20-100 MCG/ACT Inhalation Aerosol Solution (Combivent Respimat)Indicatio ns:COPD, group B, by GOLD 2017 classification ([facility]) INHALE 1 PUFF BY MOUTH IN THE MORNING, 1 PUFF AT NOON, 1 PUFF IN THE EVENING, AND 1 PUFF BEFORE BEDTIME 12 g 1 4 5:02 PM EST 04/16/20 23 Active OneTouch Verio In Vitro Strip (Glucose Blood)Indications: Type 2 diabetes mellitus with hemoglobin A1c goal of less than 8.0% ([facility]) USE TO TEST BLOOD SUGAR ONCE [...] 10/18/19 24 025 Active OneTouch Delica Plus [id number] ns:Type 2 diabetes mellitus with hemoglobin A1c goal of less than 8.0% ([facility]) USE TO TEST BLOOD SUGAR ONCE A DAY DIRECTED 100 Each 1 10/30/19 24 025 Active Amitriptyline HCl 10 MG Oral Tablet (Elavil)Indication s:Insomnia, unspecified type take one tablet by mouth at bedtime 100 Tablet 1 4 8:50 AM EDT 11/01/19 24 Active Empagliflozin 10 MG Oral Tablet (Jardiance)Indicat ions:Type 2 diabetes mellitus with hemoglobin A1c goal of less than 8.0% ([facility]) Take 1 Tablet by mouth in [...] DAY 200 Tablet 1 06/02/19 25 Active Apixaban 5 MG Oral Tablet (Eliquis)Indicatio ns:Cerebrovascular disease, arteriosclerotic, post-stroke,Paroxy smal atrial fibrillation (HCC) TAKE ONE TABLET BY MOUTH TWICE A DAY 200 Tablet 1 4 7:18 AM EST 12/08/19 24 025 Discontin ued(Refil l) documented as of this encounter (statuses as of 06/02/2024) Active Problems Problem Noted Date Diagnosed Date [...] as of this encounter (statuses as of 06/02/2024) Resolved Problems Problem Noted Date Diagnosed Date [...] as of this encounter (statuses as of 06/02/2024) Immunizations Name Administration Dates Next Due COVID-19 mRNA, LNP-s, No Pre serve, 2-Dose Series ([employer]) 03/25/2021,08/27/2020,08/06/2020 COVID-19, MRNA-LNP, PF, 30 M CG/0.3 mL, 12 YRS AND ABOVE, IM ([facility]) 06/14/2023 Covid-19, Mrna, Lnp-s, Pf, B ivalent, [...] 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 file Not on file Not on file Not on file Not on file Not on file Not on file documented as of this encounter Miscellaneous Notes * Telephone Encounter - Keli Martinez [facility] - 06/02/2024 11:11 AM EST Signed Prescriptions: Disp Refills Apixaban 5 MG Oral Tablet (Eliquis) 200 Ta*1 Sig: TAKE ONE TABLET BY MOUTH TWICE A DAYAuthorizing Provider: DAYSI PHAM User: KELI MARTINEZ documented in this encounter Plan of Treatment Upcoming Encounters Date Type Department Care Team (Late st Contact Info) Description 06/06/2024 2:00 PM EST Cardiac Studies Cardiology, [facility] [address] [place] [address] [facility] [address] [place] [address] 06/20/2024 2:00 PM EST Office Visit Cardiology [address] [place] [address] Enrico De La Torre PA-C [address] [place] [address] 06/26/2024 1:40 PM EST Office Visit Family Medicine [address] [place] [phone] Christin Welch PA-C [address] [place] [address] [place] [address] 08/29/2024 2:30 PM EDT Office Visit Nephrology [address] [place] [address] Lissa Owens [facility] [address] [facility] [address] 08/29/2024 3:00 PM EDT Nurse Only Ancillary [address] [place] [phone] [place], Nurse Annual [facility] [address] [place] [address] [place] [address] 12/26/2024 2:30 PM EDT Office Visit Cardiology, [facility] [address] [facility] [place] [address] Ashli Alcala CRNP [facility] [place] [id number] Health Maintenance Due Date Last Done Comments Alpha-1 Antitrypsin 1967 Sigmoidoscopy 1994 Fecal Occult Blood Test 11/06/2006 11/06/2005 DTap/Tdap Vaccines (2 - Td or Tdap) 10/25/2017 10/26/2007 Colonoscopy 01/24/2019 01/24/2018, 09/01, 08/11/2007, Additional history exists Colorectal Cancer Screening 01/24/2019 Zoster Vaccines (3 of 3) 03/10/2019 01/13/2019, 03/03 CKD PHOS USE SMARTSET 02282 12/28/201912/02, 12/25/2018, 12/24/2018, Additional history exists Cologuard 11/04/2020 11/04/2017 Mammogram 11/19/2023 11/18/2022, 07/0 08/2022, 11/04/2022, Additional history exists Diabetic Eye Exam 02/23/2024 02/22/2023, , 07/02/2021, Additional history exists CKD HGB USE SMARTSET 23163 05/12/202405/12, 05/12/2023, 09/24/2021, Additional history exists HbA1c [...] fibrillation documented in this encounter Care Teams Personal Support Worker Relationship Specialty Start Date End Date Daysi Pham MD [address] [place] [address] [place] [address] PCP - General Family Medicine 07/01/17 documented as of this encounter
--- OUTSIDE RECORDS SUMMARY | 2024-06-26 22:28 | External Medical Summary | Summary of Care ---
Author Name Unknown Organization [facility] Address [address] [place] [address] Phone [phone] Care Team Providers Care Director Of Resource Development Name Role Phone Daysi Pham MD Primary Care Provide r Encounter Details Date Type Department Care Team (Late st Contact Info) Description 05/16/2024 Population Health External Data Unspecified Department Allergies Active Allergy Reactions Criticality Noted Date Comments Amoxicillin Rash 11/19/2011 Levofloxacin Other (Please comment) 11/13/2013 Weakness, lightheadedness, nausea Niacin Er (Antihyperlipidemic) 01/30/2010 Burned throat. Prednisone 09/03/2012 Blood pressure went up. Bupropion Hcl 01/30/2010 documented as of this encounter (statuses as of 05/17/2024) Medications VITAMIN B COMPLEX PO CAPSIndications:evans pplementation [...] hemoglobin A1c goal of less than 8.0% ([facility]) Use once a day Dx: [...] Capsule Take by mouth. Activ e Ipratropium [place] 0.03 % Nasal Solution (Atrovent)Indicati ons:Rhinorrhea ADMINISTER 2 SPRAYS INTO EACH NOSTRIL 4 TIMES A DAY NEEDED FOR RHINITIS. FOR RUNNY NOSE 90 mL 1 03/15/20 23 Active Ipratropium-[place] rol 20-100 MCG/ACT Inhalation Aerosol Solution (Combivent Respimat)Indicatio ns:COPD, group B, by GOLD 2017 classification ([facility]) INHALE 1 PUFF BY MOUTH [...] ONCE A DAY 100 Strip 3 4 6:37 AM EDT 08/09/19 24 Active Lisinopril 5 MG Oral Tablet (Prinivil)Indicati ons:HTN, goal below 140/90 TAKE ONE TABLET BY MOUTH EVERY DAY 90 Tablet 3 4 1:57 PM EDT 08/12/19 24 025 Active Atorvastatin Calcium 80 MG Oral Tablet (Lipitor)Indicatio ns:Dyslipidemia, goal LDL below 100 TAKE ONE TABLET BY MOUTH EVERYday 100 Tablet 3 5 2:45 PM EST 10/18/19 24 025 Active OneTouch Delica Plus [id number] ns:Type 2 diabetes mellitus with hemoglobin A1c [...] 4 2:25 PM EST 11/02/19 24 Active Apixaban 5 MG Oral Tablet (Eliquis)Indicatio ns:Cerebrovascular disease, arteriosclerotic, post-stroke,Paroxy smal atrial fibrillation (HCC) TAKE ONE TABLET BY MOUTH TWICE A DAY 200 Tablet 1 4 7:18 AM EST 12/08/19 24 Active Ipratropium-Alb[place] rol 0.5-2.5 (3) MG/3ML [...] and evening meals. 200 Capsule 1 4 2:02 PM EDT 02/08/20 24 Active Isosorbide Mononitrate ER 30 MG Oral Tablet Extended Release 24 Hour (Imdur)Indications :HTN, goal below 140/90 TAKE ONE TABLET BY MOUTH EVERY MORNING 90 Tablet 3 4 6:37 AM EDT 02/23/20 24 025 Active dilTIAZem HCl ER [...] 2 times a day. 200 Tablet 3 4 1:57 PM EDT 02/22/20 24 Active Pregabalin 25 MG Oral Capsule (Lyrica)Indication s:Type 2 diabetes, controlled, with neuropathy (HCC) TAKE ONE CAPSULE BY MOUTH EVERY MORNING AND TAKE ONE CAPSULE BEFORE BEDTIME 60 Capsule 2 5 12:13 PM EST 03/20/20 24 Active documented as of this encounter (statuses as of 05/17/2024) Active Problems Problem Noted Date Diagnosed Date [...] as of this encounter (statuses as of 05/17/2024) Resolved Problems Problem Noted Date Diagnosed Date [...] as of this encounter (statuses as of 05/17/2024) Immunizations Name Administration Dates Next Due COVID-19 mRNA, LNP-s, No Pre serve, 2-Dose Series ([employer]) 03/25/2021,08/27/2020,08/06/2020 COVID-19, MRNA-LNP, PF, 30 M CG/0.3 [...] No 08/27/2023 Does the household have a [facility] cancer center[facility] source of income? 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 Not on file Not on file Not on file Not on file Not on file Not on file documented as of this encounter Plan of Treatment Upcoming Encounters Date Type Department Care Team (Late st Contact Info) Description 05/19/2024 1:00 PM EST Cardiac Studies Cardiology, [facility] [address] [place] [address] [facility] [place] [address] 06/20/2024 2:00 PM EST Office Visit Cardiology [address] [place] [address] Enrico De La Torre PA-C 132 [facility] [place] [address] 06/26/2024 1:40 PM EST Office Visit Family Medicine [address] [place] [phone] Christin Welch PA-C [address] [place] [address] [place] [address] 08/29/2024 2:30 PM EDT Office Visit Nephrology [address] [place] [address] Lissa Owens PA-C [address] [place] [address] 08/29/2024 3:00 PM EDT Nurse Only Ancillary [address] [place] [address] [place], Nurse Annual [address] [place] [address] 12/26/2024 2:30 PM EDT Office Visit Cardiology, [facility] [place] [address] Ashli Alcala CRNP [address] [place] [address] Health Maintenance Due Date Last Done Comments Alpha-1 Antitrypsin 1967 Sigmoidoscopy 1994 Fecal Occult Blood Test 11/06/2006 11/06/2005 DTap/Tdap Vaccines (2 - Td or Tdap) 10/25/2017 10/26/2007 Colonoscopy 01/24/2019 01/24/2018, 09/01, 08/11/2007, Additional history exists Colorectal Cancer Screening 01/24/2019 Zoster Vaccines (3 of 3) 03/10/2019 01/13/2019, 03/03 CKD PHOS USE SMARTSET 49495 12/28/201912/02, 12/25/2018, 12/24/2018, Additional history exists Cologuard 11/04/2020 11/04/2017 Mammogram 11/19/2023 11/18/2022, 08/2022, 11/04/2022, Additional history exists Diabetic Eye Exam 02/23/2024 02/22/2023, , 07/02/2021, Additional history exists CKD HGB USE SMARTSET 66929 05/12/202405/12, 05/12/2023, 09/24/2021, Additional history exists HbA1c [...] filedocumented as of this encounter Care Teams Director Of Resource Development Relationship Specialty Start Date End Date Daysi Pham MD [address] [place] [address] [place] [address] PCP - General Family Medicine 07/01/17 documented as of this encounter
--- OUTSIDE RECORDS SUMMARY | 2024-06-26 22:28 | External Medical Summary | Summary of Care ---
Author Name Unknown Organization [facility] Address [address] [place] [address] Phone [phone] Care Team Providers Care Elevator Tender Name Role Phone Daysi Pham MD Primary Care Provide r Reason for Visit * Reason Onset Date Comments Health Maintenance 04/28/2024 Encounter Details Date Type Department Care Team (Late st Contact Info) Description 04/28/2024 Telephone Family [address] [phone] Daysi Pham MD [address] [place] [address] [place] [address] Health Maintenance Allergies Active Allergy Reactions Criticality Noted Date Comments Amoxicillin Rash 11/19/2011 Levofloxacin Other (Please comment) 11/13/2013 Weakness, lightheadedness, nausea Niacin Er (Antihyperlipidemic) 01/30/2010 Burned throat. Prednisone 09/03/2012 Blood pressure went up. Bupropion Hcl 01/30/2010 documented as of this encounter (statuses as of 04/28/2024) Medications VITAMIN B COMPLEX PO CAPSIndications:evans pplementation [...] goal of less than 8.0% ([facility]) Use once a day Dx: [...] Capsule Take by mouth. Activ e Ipratropium [place] 0.03 % Nasal Solution (Atrovent)Indicati ons:Rhinorrhea ADMINISTER 2 SPRAYS INTO EACH NOSTRIL 4 TIMES A DAY NEEDED FOR RHINITIS. FOR RUNNY NOSE 90 mL 1 03/15/20 23 Active Ipratropium-[place] rol 20-100 MCG/ACT Inhalation Aerosol Solution (Combivent Respimat)Indicatio ns:COPD, group B, by GOLD 2017 classification ([facility]) INHALE 1 PUFF BY MOUTH IN THE MORNING, 1 PUFF AT NOON, 1 PUFF IN THE EVENING, AND 1 PUFF BEFORE BEDTIME 12 g 1 4 5:02 PM EST 04/16/20 23 Active OneTouch Verio In Vitro Strip (Glucose Blood)Indications: Type 2 diabetes mellitus with hemoglobin A1c goal of less than 8.0% ([facility]) USE TO TEST BLOOD SUGAR [...] BY MOUTH EVERYday 100 Tablet 3 4 7:37 AM EDT 10/18/19 24 025 Active OneTouch Delica Plus [id number] ns:Type 2 diabetes mellitus with hemoglobin A1c goal of less than 8.0% ([facility]) USE TO TEST BLOOD SUGAR [...] goal of less than 8.0% ([facility]) Take 1 Tablet by mouth [...] CAPSULE BEFORE BEDTIME 60 Capsule 2 4 7:20 AM EST 03/20/20 24 Active documented as of this encounter (statuses as of 04/28/2024) Active Problems Problem Noted Date Diagnosed Date [...] as of this encounter (statuses as of 04/28/2024) Resolved Problems Problem Noted Date Diagnosed Date [...] as of this encounter (statuses as of 04/28/2024) Immunizations Name Administration Dates Next Due COVID-19 mRNA, LNP-s, No Pre serve, 2-Dose Series ([employer]) 03/25/2021,08/27/2020,08/06/2020 COVID-19, MRNA-LNP, PF, 30 M CG/0.3 [...] 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 on file Not on file Not on file Not on file Not on file Not on file documented as of this encounter Miscellaneous Notes * Telephone Encounter - Zenia Salazar LPN - 04/28/2024 10:40 AM EST Care Gaps Comprehensive Care Outreach Last Office/Telemedicine Visit: 12/06/2023 (in office), Visit date not found (telemedicine) Next Office Visit: 06/26/2024 Hemoglobin AIC Results: Lab Results Component Value Date/Time HEMOGLOBIN A1C - [facility] 6.6 (H) 11/15/2023 01:44 PM HEMOGLOBIN A1C - [facility] 6.8 (H) 05/12/2023 11:02 AM HEMOGLOBIN A1C - [facility] 6.5 (H) 08/11/2022 01:24 PM HEMOGLOBIN A1C - [facility] 6.1 12/29/2016 08:27 AM HEMOGLOBIN A1C - [facility] 5.7 10/20/2010 09:29 AM HEMOGLOBIN A1C - [facility] 6.0 07/03/2009 02:08 PM BP Readings from Last 1 Encounters: 03/10/24 102/57 Reviewed Health Maintenance below: Health Maintenance Topic Date Due Alpha-1 Antitrypsin Never done DTap/Tdap Vaccines (2 - Td or Tdap) 10/25/2017 Colorectal Cancer Screening 01/24/2019 Zoster Vaccines (3 of 3) 03/10/2019 CKD PHOS USE SMARTSET 61003 12/28/2019 Mammogram 11/19/2023 Diabetic Eye Exam 02/23/2024 CKD HGB USE SMARTSET 71587 05/12/2024 HbA1c 05/17/2024 Labs Mamm colon Care Gap Outreach Action Taken: Left message documented in this encounter Plan of Treatment Upcoming Encounters Date Type Department Care Team (Late st Contact Info) Description 05/19/2024 1:00 PM EST Cardiac Studies Cardiology, [facility] [address] [facility] [place] [address] [facility] [place] [address] 06/20/2024 2:00 PM EST Office Visit Cardiology [address] [place] [address] Enrico De La Torre PA-C [address] [place] [address] 06/26/2024 1:40 PM EST Office Visit Family Medicine [address] [place] [phone] Christin Welch PA-C [address] [place] [address] [place] [address] 08/29/2024 2:30 PM EDT Office Visit Nephrology [address] [place] [address] ZemaLissa shrestha PA-C [address] [place] [address] 08/29/2024 3:00 PM EDT Nurse Only Ancillary [address] [place] [address] [place] Nurse Annual [address] [place] [address] 12/26/2024 2:30 PM EDT Office Visit Cardiology, [facility] [place] [address] Ashli Alcala CRNP [address] [place] [address] Health Maintenance Due Date Last Done Comments Alpha-1 Antitrypsin 1967 Sigmoidoscopy 1994 Fecal Occult Blood Test 11/06/2006 11/06/2005 DTap/Tdap Vaccines (2 - Td or Tdap) 10/25/2017 10/26/2007 Colonoscopy 01/24/2019 01/24/2018, 09/01, 08/11/2007, Additional history exists Colorectal Cancer Screening 01/24/2019 Zoster Vaccines (3 of 3) 03/10/2019 01/13/2019, 03/03 CKD PHOS USE SMARTSET 24892 12/28/201912/02, 12/25/2018, 12/24/2018, Additional history exists Cologuard 11/04/2020 11/04/2017 Mammogram 11/19/2023 11/18/2022, 08/2022, 11/04/2022, Additional history exists Diabetic Eye Exam 02/23/2024 02/22/2023, , 07/02/2021, Additional history exists CKD HGB USE SMARTSET 25702 05/12/202405/12, 05/12/2023, 09/24/2021, Additional history exists HbA1c [...] filedocumented as of this encounter Care Teams Elevator Tender Relationship Specialty Start Date End Date Daysi Pham MD [address] [place] [address] [place] [address] PCP - General Family Medicine 07/01/17 documented as of this encounter
--- OUTSIDE RECORDS SUMMARY | 2024-06-26 22:28 | External Medical Summary | Summary of Care ---
Author Name Unknown Organization [facility] Address [address] [place] [address] Phone [phone] Care Team Providers Care Central Supply Nurse Name Role Phone Daysi Pham MD Primary Care Provide r Encounter Details Date Type Department Care Team (Late st Contact Info) Description 05/22/2024 Population Health External Data Unspecified Department Allergies Active Allergy Reactions Criticality Noted Date Comments Amoxicillin Rash 11/19/2011 Levofloxacin Other (Please comment) 11/13/2013 Weakness, lightheadedness, nausea Niacin Er (Antihyperlipidemic) 01/30/2010 Burned throat. Prednisone 09/03/2012 Blood pressure went up. Bupropion Hcl 01/30/2010 documented as of this encounter (statuses as of 05/22/2024) Medications VITAMIN B COMPLEX PO CAPSIndications:evans pplementation [...] Capsule Take by mouth. Activ e Ipratropium [place] 0.03 % Nasal Solution (Atrovent)Indicati ons:Rhinorrhea ADMINISTER 2 SPRAYS INTO EACH NOSTRIL 4 TIMES A DAY NEEDED FOR RHINITIS. FOR RUNNY NOSE 90 mL 1 03/15/20 23 Active Ipratropium-[place] rol 20-100 MCG/ACT Inhalation Aerosol Solution (Combivent Respimat)Indicatio ns:COPD, group B, by GOLD 2017 classification ([facility] [...] 10/18/19 24 025 Active OneTouch Delica Plus [id number] ns:Type 2 diabetes mellitus with hemoglobin A1c [...] as of this encounter (statuses as of 05/22/2024) Active Problems Problem Noted Date Diagnosed Date [...] as of this encounter (statuses as of 05/22/2024) Resolved Problems Problem Noted Date Diagnosed Date [...] as of this encounter (statuses as of 05/22/2024) Immunizations Name Administration Dates Next Due COVID-19 mRNA, LNP-s, No Pre serve, 2-Dose Series ([employer]) 03/25/2021,08/27/2020,08/06/2020 COVID-19, MRNA-LNP, PF, 30 M CG/0.3 [...] No 08/27/2023 Does the household have a [facility] hospit[facility] source of income? 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 [address] [facility] [place] [address] 06/20/2024 2:00 PM EST Office Visit Cardiology [address] [place] [address] Enrico De La Torre PA-C 132 [facility] [place] [address] 06/26/2024 1:40 PM EST Office Visit Family Medicine [address] [place] [phone] Christin Welch PA-C [address] [place] [address] [place] [address] 08/29/2024 2:30 PM EDT Office Visit Nephrology [address] [place] [address] Lissa Owens PA-C [address] [place] [address] 08/29/2024 3:00 PM EDT Nurse Only Ancillary [address] [place] [address] [place], Nurse Annual [address] [place] [address] 12/26/2024 2:30 PM EDT Office Visit Cardiology, [facility] [place] [address] Ashli Alcala CRNP [address] [place] [address] Health Maintenance Due Date Last Done Comments Alpha-1 Antitrypsin 1967 Sigmoidoscopy 1994 Fecal Occult Blood Test 11/06/2006 11/06/2005 DTap/Tdap Vaccines (2 - Td or Tdap) 10/25/2017 10/26/2007 Colonoscopy 01/24/2019 01/24/2018, 09/01, 08/11/2007, Additional history exists Colorectal Cancer Screening 01/24/2019 Zoster Vaccines (3 of 3) 03/10/2019 01/13/2019, 03/03 CKD PHOS USE SMARTSET 15680 12/28/201912/02, 12/25/2018, 12/24/2018, Additional history exists Cologuard 11/04/2020 11/04/2017 Mammogram 11/19/2023 11/18/2022, 0708/2022, 11/04/2022, Additional history exists Diabetic Eye Exam 02/23/2024 02/22/2023, , 07/02/2021, Additional history exists CKD HGB USE SMARTSET 69504 05/12/202405/12, 05/12/2023, 09/24/2021, Additional history exists HbA1c [...] filedocumented as of this encounter Care Teams Central Supply Nurse Relationship Specialty Start Date End Date Daysi Pham MD [address] [place] [address] [place] [address] PCP - General Family Medicine 07/01/17 documented as of this encounter
--- OUTSIDE RECORDS SUMMARY | 2024-06-26 22:28 | External Medical Summary | Summary of Care ---
Author Name Unknown Organization [facility] Address [address] [place] [address] Phone [phone] Care Team Providers Care Radiologic Technology Instructor Name Role Phone Daysi Pham MD Primary Care Provide r Encounter Details Date Type Department Care Team (Late st Contact Info) Description 04/12/2024 Result Scan Unspecified Department Regine Barcenas, DO [facility] [place] [address] <No scans attached> Allergies Active Allergy Reactions Criticality Noted Date Comments Amoxicillin Rash 11/19/2011 Levofloxacin Other (Please comment) 11/13/2013 Weakness, lightheadedness, nausea Niacin Er (Antihyperlipidemic) 01/30/2010 Burned throat. Prednisone 09/03/2012 Blood pressure went up. Bupropion Hcl 01/30/2010 documented as of this encounter (statuses as of 04/12/2024) Medications VITAMIN B COMPLEX PO CAPSIndications:evans pplementation [...] Capsule Take by mouth. Activ e Ipratropium [place] 0.03 % Nasal Solution (Atrovent)Indicati ons:Rhinorrhea ADMINISTER [...] 1 4 5:02 PM EST 04/16/20 23 024 Active OneTouch Verio In Vitro Strip (Glucose [...] 10/18/19 24 025 Active OneTouch Delica Plus [id number] ns:Type 2 diabetes mellitus with hemoglobin A1c [...] in the morning. 90 Tablet 3 4 10:14 AM EDT 11/02/19 24 Active Apixaban 5 MG Oral [...] CAPSULE BEFORE BEDTIME 60 Capsule 2 4 2:27 PM EST 03/20/20 24 Active documented as of this encounter (statuses as of 04/12/2024) Active Problems Problem Noted Date Diagnosed Date [...] as of this encounter (statuses as of 04/12/2024) Resolved Problems Problem Noted Date Diagnosed Date [...] as of this encounter (statuses as of 04/12/2024) Immunizations Name Administration Dates Next Due COVID-19 mRNA, LNP-s, No Pre serve, 2-Dose Series ([employer]) 03/25/2021,08/27/2020,08/06/2020 COVID-19, MRNA-LNP, PF, 30 M CG/0.3 mL, 12 YRS AND ABOVE, IM ([employer]Comir[employer]) 06/14/2023 Covid-19, Mrna, Lnp-s, Pf, B ivalent, [...] 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 file Not on file Not on file Not on file Not on file Not on file Not on file documented as of this encounter Plan of Treatment Upcoming Encounters Date Type Department Care Team (Late st Contact Info) Description 05/19/2024 1:00 PM EST Cardiac Studies Cardiology, [facility] [place] [address] [facility] 132 [facility] [place] [address] 06/20/2024 2:00 PM EST Office Visit Cardiology [address] [place] [address] Enrico De La Torre PA-C [address] [place] [address] 06/26/2024 1:40 PM EST Office Visit Family Medicine [address] [place] [phone] Christin Welch PA-C [address] [place] [address] [place] [address] 08/29/2024 2:30 PM EDT Office Visit Nephrology [address] [place] [address] Lissa Owens PA-C [address] [place] [address] 08/29/2024 3:00 PM EDT Nurse Only Ancillary [address] [place] [address] [place], Nurse Annual [address] [place] [address] 12/26/2024 2:30 PM EDT Office Visit Cardiology, [facility] 132 [facility] [place] [address] Ashli Alcala CRNP [address] [place] [address] Health Maintenance Due Date Last Done Comments Alpha-1 Antitrypsin 1967 Sigmoidoscopy 1994 Fecal Occult Blood Test 11/06/2006 11/06/2005 DTap/Tdap Vaccines (2 - Td or Tdap) 10/25/2017 10/26/2007 Colonoscopy 01/24/2019 01/24/2018, 09/01, 08/11/2007, Additional history exists Colorectal Cancer Screening 01/24/2019 Zoster Vaccines (3 of 3) 03/10/2019 01/13/2019, 03/03 CKD PHOS USE SMARTSET 42866 12/28/201912/02, 12/25/2018, 12/24/2018, Additional history exists Cologuard 11/04/2020 11/04/2017 Mammogram 11/19/2023 11/18/2022, 07/08/2022, 11/04/2022, Additional history exists Diabetic Eye Exam 02/23/2024 02/22/2023, , 07/02/2021, Additional history exists CKD HGB USE SMARTSET 28780 05/12/202405/12, 05/12/2023, 09/24/2021, Additional history exists HbA1c [...] Date/Time Associated Diagnosis Comments CARDIOLOGY SCANNED RESULT 04/12/2024 documented in this encounter Results * CARDIOLOGY SCANNED RESULT (04/12/2024) 04/12/2024 us Regine Barcenas DO OTHER Final R esult documented in this encounter Care Teams Radiologic Technology Instructor Relationship Specialty Start Date End Date Daysi Phma MD [address] [place] [address] [place] [phone] PCP - General Family Medicine 07/01/17 documented as of this encounter
--- OUTSIDE RECORDS SUMMARY | 2024-06-26 22:28 | External Medical Summary | Summary of Care ---
Author Name Unknown Organization [facility] Address [address] [place] [address] Phone [phone] Care Team Providers Care Customer Service Specialist Name Role Phone Daysi Pham MD Primary Care Provide r Encounter Details Date Type Department Care Team (Late st Contact Info) Description 05/04/2024 Population Health External Data Unspecified Department Allergies Active Allergy Reactions Criticality Noted Date Comments Amoxicillin Rash 11/19/2011 Levofloxacin Other (Please comment) 11/13/2013 Weakness, lightheadedness, nausea Niacin Er (Antihyperlipidemic) 01/30/2010 Burned throat. Prednisone 09/03/2012 Blood pressure went up. Bupropion Hcl 01/30/2010 documented as of this encounter (statuses as of 05/09/2024) Medications VITAMIN B COMPLEX PO CAPSIndications:evans pplementation [...] hemoglobin A1c goal of less than 8.0% ([facility]) Use once a day Dx: E11.9 [...] Capsule Take by mouth. Activ e Ipratropium [place] 0.03 % Nasal Solution (Atrovent)Indicati ons:Rhinorrhea ADMINISTER 2 SPRAYS INTO EACH NOSTRIL 4 TIMES A DAY NEEDED FOR RHINITIS. FOR RUNNY NOSE 90 mL 1 03/15/20 23 Active Ipratropium-[place] rol 20-100 MCG/ACT Inhalation Aerosol Solution (Combivent Respimat)Indicatio ns:COPD, group B, by GOLD 2017 classification ([facility]) INHALE 1 PUFF BY MOUTH IN [...] 10/18/19 24 025 Active OneTouch Delica Plus [id number] ns:Type 2 diabetes mellitus with hemoglobin A1c [...] as of this encounter (statuses as of 05/09/2024) Active Problems Problem Noted Date Diagnosed Date [...] as of this encounter (statuses as of 05/09/2024) Resolved Problems Problem Noted Date Diagnosed Date [...] as of this encounter (statuses as of 05/09/2024) Immunizations Name Administration Dates Next Due COVID-19 mRNA, LNP-s, No Pre serve, 2-Dose Series ([employer]) 03/25/2021,08/27/2020,08/06/2020 COVID-19, MRNA-LNP, PF, 30 M CG/0.3 [...] No 08/27/2023 Does the household have a [facility] source of income? 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 Not on file Not on file Not on file Not on file Not on file Not on file documented as of this encounter Plan of Treatment Upcoming Encounters Date Type Department Care Team (Late st Contact Info) Description 05/19/2024 1:00 PM EST Cardiac Studies Cardiology, [facility] [address] [place] [address] [facility] [place] [address] 06/20/2024 2:00 PM EST Office Visit Cardiology [address] [place] [address] Enrico De La Torre PA-C 132 [facility] [place] [address] 06/26/2024 1:40 PM EST Office Visit Family Medicine [address] [place] [phone] Christin Welch PA-C [address] [place] [address] [place] [address] 08/29/2024 2:30 PM EDT Office Visit Nephrology [address] [place] [address] Lissa Owens PA-C [address] [place] [address] 08/29/2024 3:00 PM EDT Nurse Only Ancillary [address] [place] [address] [place], Nurse Annual [address] [place] [address] 12/26/2024 2:30 PM EDT Office Visit Cardiology, [facility] [place] [address] Ashli Alcala CRNP [address] [place] [address] Health Maintenance Due Date Last Done Comments Alpha-1 Antitrypsin 1967 Sigmoidoscopy 1994 Fecal Occult Blood Test 11/06/2006 11/06/2005 DTap/Tdap Vaccines (2 - Td or Tdap) 10/25/2017 10/26/2007 Colonoscopy 01/24/2019 01/24/2018, 09/01, 08/11/2007, Additional history exists Colorectal Cancer Screening 01/24/2019 Zoster Vaccines (3 of 3) 03/10/2019 01/13/2019, 03/03 CKD PHOS USE SMARTSET 59742 12/28/201912/02, 12/25/2018, 12/24/2018, Additional history exists Cologuard 11/04/2020 11/04/2017 Mammogram 11/19/2023 11/18/2022, 08/2022, 11/04/2022, Additional history exists Diabetic Eye Exam 02/23/2024 02/22/2023, , 07/02/2021, Additional history exists CKD HGB USE SMARTSET 04441 05/12/202405/12, 05/12/2023, 09/24/2021, Additional history exists HbA1c [...] filedocumented as of this encounter Care Teams Customer Service Specialist Relationship Specialty Start Date End Date Daysi Pham MD [address] [place] [address] [place] [address] PCP - General Family Medicine 07/01/17 documented as of this encounter
--- OUTSIDE RECORDS SUMMARY | 2024-06-26 22:28 | External Medical Summary | Summary of Care ---
Author Name Unknown Organization [facility] Address [address] [place] [address] Phone [phone] Care Team Providers Care Farmer General Name Role Phone Daysi Pham MD Primary Care Provide r Encounter Details Date Type Department Care Team (Late st Contact Info) Description 06/06/2024 Telephone Cardiology, [facility] 132 [facility] [place] [address] Ashli Alcala CRNP [address] [place] [address] Allergies Active Allergy Reactions Criticality Noted Date Comments Amoxicillin Rash 11/19/2011 Levofloxacin Other (Please comment) 11/13/2013 Weakness, lightheadedness, nausea Niacin Er (Antihyperlipidemic) 01/30/2010 Burned throat. Prednisone 09/03/2012 Blood pressure went up. Bupropion Hcl 01/30/2010 documented as of this encounter (statuses as of 06/08/2024) Medications VITAMIN B COMPLEX PO CAPSIndications:evans pplementation [...] goal of less than 8.0% ([facility]) Use once a day Dx: [...] Capsule Take by mouth. Activ e Ipratropium [place] 0.03 % Nasal Solution (Atrovent)Indicati ons:Rhinorrhea ADMINISTER 2 SPRAYS INTO EACH NOSTRIL 4 TIMES A DAY NEEDED FOR RHINITIS. FOR RUNNY NOSE 90 mL 1 03/15/20 23 Active Ipratropium-[place] rol 20-100 MCG/ACT Inhalation Aerosol Solution (Combivent Respimat)Indicatio ns:COPD, group B, by GOLD 2017 classification ([facility]) INHALE 1 PUFF BY MOUTH IN THE MORNING, 1 PUFF AT NOON, 1 PUFF IN THE EVENING, AND 1 PUFF BEFORE BEDTIME 12 g 1 4 5:02 PM EST 04/16/20 23 Active OneTouch Verio In Vitro Strip (Glucose Blood)Indications: Type 2 diabetes mellitus with hemoglobin A1c goal of less than 8.0% ([facility]) USE TO TEST BLOOD SUGAR [...] 10/18/19 24 025 Active OneTouch Delica Plus [id number] ns:Type 2 diabetes mellitus with hemoglobin A1c goal of less than 8.0% ([facility]) USE TO TEST BLOOD SUGAR [...] goal of less than 8.0% ([facility]) Take 1 Tablet by mouth [...] as of this encounter (statuses as of 06/08/2024) Active Problems Problem Noted Date Diagnosed Date [...] as of this encounter (statuses as of 06/08/2024) Resolved Problems Problem Noted Date Diagnosed Date [...] as of this encounter (statuses as of 06/08/2024) Immunizations Name Administration Dates Next Due COVID-19 mRNA, LNP-s, No Pre serve, 2-Dose Series ([employer]) 03/25/2021,08/27/2020,08/06/2020 COVID-19, MRNA-LNP, PF, 30 M CG/0.3 mL, 12 YRS AND ABOVE, IM ([facility]) 06/14/2023 Covid-19, Mrna, Lnp-s, Pf, B [...] money to buy more. Never true 08/27/19 Within the past 12 months, t he [...] 08/27/2023 Does the household have a re lar source of income? 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 Barcenas, Was present for another patients visit and reported not feeling well. Lightheaded and weak. Blood pressure reported at 100 systolic manual. I encouraged her to the stop lisinopril given the low blood pressure readings. Had not eaten much either prior to now 1448 when she was present. Follow up as scheduled in 2 weeks Thank You EFREM Krause documented in this encounter Plan of Treatment Upcoming Encounters Date Type Department Care Team (Late st Contact Info) Description 06/20/2024 2:00 PM EST Office Visit Cardiology [address] [place] [address] Enrico De La Torre PA-C [address] [place] [address] 06/26/2024 1:40 PM EST Office Visit Family Medicine [address] [place] [phone] Christin Welch PA-C [address] [place] [address] [place] [address] 08/29/2024 2:30 PM EDT Office Visit Nephrology [address] [place] [address] Lissa Owens PA-C [address] [place] [address] 08/29/2024 3:00 PM EDT Nurse Only Ancillary [address] [place] [address] [place], Nurse [address] [place] [address] 12/26/2024 2:30 PM EDT Office Visit Cardiology, [facility] [address] [facility] [place] [address] Ashli Alcala CRNP 400 [facility] [place] [phone] Health Maintenance Due Date Last Done Comments Alpha-1 Antitrypsin 1967 Sigmoidoscopy 1994 Fecal Occult Blood Test 11/06/2006 11/06/2005 DTap/Tdap Vaccines (2 - Td or Tdap) 10/25/2017 10/26/2007 Colonoscopy 01/24/2019 01/24/2018, 09/01, 08/11/2007, Additional history exists Colorectal Cancer Screening 01/24/2019 Zoster Vaccines (3 of 3) 03/10/2019 01/13/2019, 03/03 CKD PHOS USE SMARTSET 58755 12/28/201912/02, 12/25/2018, 12/24/2018, Additional history exists Cologuard 11/04/2020 11/04/2017 Mammogram 11/19/2023 11/18/2022, 07/0 08/2022, 11/04/2022, Additional history exists Diabetic Eye Exam 02/23/2024 02/22/2023, , 07/02/2021, Additional history exists CKD HGB USE SMARTSET 16120 05/12/202405/12, 05/12/2023, 09/24/2021, Additional history exists HbA1c [...] filedocumented as of this encounter Care Teams Farmer General Relationship Specialty Start Date End Date Daysi Pham MD NPI: [id number] [place] [address] [place] [address] PCP - General Family Medicine 07/01/17 documented as of this encounter
--- OUTSIDE RECORDS SUMMARY | 2024-06-26 22:29 | External Medical Summary | Summary of Care ---
Author Name Unknown Organization [facility] Address [address] [place] [address] Phone [phone] Care Team Providers Care Sweatband Separator Name Role Phone Daysi Pham MD Primary Care Provide r Encounter Details Date Type Department Care Team (Late st Contact Info) Description 03/09/2024 Population Health External Data Unspecified Department Allergies Active Allergy Reactions Criticality Noted Date Comments Amoxicillin Rash 11/19/2011 Levofloxacin Other (Please comment) 11/13/2013 Weakness, lightheadedness, nausea Niacin Er (Antihyperlipidemic) 01/30/2010 Burned throat. Prednisone 09/03/2012 Blood pressure went up. Bupropion Hcl 01/30/2010 documented as of this encounter (statuses as of 03/16/2024) Medications VITAMIN B COMPLEX PO CAPSIndications:evans pplementation [...] less than 8.0% ([facility]) Use once a day Dx: E11.9 [...] Capsule Take by mouth. Activ e Ipratropium [place] 0.03 % Nasal Solution (Atrovent)Indicati ons:Rhinorrhea ADMINISTER [...] 10/18/19 24 025 Active OneTouch Delica Plus [id number] ns:Type 2 diabetes mellitus with hemoglobin A1c [...] 4 7:18 AM EST 12/08/19 24 Active Pregabalin 25 MG Oral Capsule (Lyrica)Indication s:Type 2 diabetes, controlled, with neuropathy (HCC) TAKE ONE CAPSULE BY MOUTH EVERY MORNING AND TAKE ONE CAPSULE BEFORE BEDTIME 60 Capsule 2 4 6:48 AM EDT 12/25/19 24 Active Ipratropium-Alb[place] rol 0.5-2.5 (3) MG/3ML [...] 4 1:57 PM EDT 02/22/20 24 Active documented as of this encounter (statuses as of 03/16/2024) Active Problems Problem Noted Date Diagnosed Date [...] as of this encounter (statuses as of 03/16/2024) Resolved Problems Problem Noted Date Diagnosed Date [...] as of this encounter (statuses as of 03/16/2024) Immunizations Name Administration Dates Next Due COVID-19 mRNA, LNP-s, No Pre serve, 2-Dose Series ([employer]) 03/25/2021,08/27/2020,08/06/2020 COVID-19, MRNA-LNP, PF, 30 M CG/0.3 mL, 12 YRS AND ABOVE, IM ([employer]) 06/14/2023 Covid-19, Mrna, Lnp-s, Pf, B ivalent, 30 Mcg, IM, 12 yrs and above ([employer]) 04/28/2022 H1N1 2009 Influenza, IM 05/15/2009 Pneumococcal [...] 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 on file Not on file Not on file Not on file Not on file Not on file documented as of this encounter Plan of Treatment Upcoming Encounters Date Type Department Care Team (Late st Contact Info) Description 05/19/2024 1:00 PM EST Cardiac Studies Cardiology, [facility] 132 [facility] [place] [address] [facility] 132 [facility] [place] [address] 06/20/2024 2:00 PM EST Office Visit Cardiology [address] [place] [address] Enrico De La Torre PA-C [address] [place] [address] 06/26/2024 1:40 PM EST Office Visit Family Medicine [address] [place] [phone] Christin Welch PA-C [address] [place] [address] [place] [address] 08/29/2024 2:30 PM EDT Office Visit Nephrology [address] [place] [address] Lissa Owens PA-C [address] [place] [address] 08/29/2024 3:00 PM EDT Nurse Only Ancillary [address] [place] [address] [place], Nurse [address] [place] [address] 12/26/2024 2:30 PM EDT Office Visit Cardiology, [facility] 132 [facility] [place] [address] Ashli Alcala CRNP [address] [place] [address] Health Maintenance Due Date Last Done Comments Alpha-1 Antitrypsin 1967 Sigmoidoscopy 1994 Fecal Occult Blood Test 11/06/2006 11/06/2005 DTap/Tdap Vaccines (2 - Td or Tdap) 10/25/2017 10/26/2007 Colonoscopy 01/24/2019 01/24/2018, 09/01, 08/11/2007, Additional history exists Colorectal Cancer Screening 01/24/2019 Zoster Vaccines (3 of 3) 03/10/2019 01/13/2019, 03/03 CKD PHOS USE SMARTSET 28979 12/28/201912/02, 12/25/2018, 12/24/2018, Additional history exists Cologuard 11/04/2020 11/04/2017 Mammogram 11/19/2023 11/18/2022, 0708/2022, 11/04/2022, Additional history exists COVID-19 Vaccine ( season) 2024 06/14/2023, 04/28/2022, 03/25/2021, Additional history exists Diabetic Eye Exam 02/23/2024 02/22/2023, , 07/02/2021, Additional history exists CKD HGB USE SMARTSET 64218 05/12/202405/12, 05/12/2023, 09/24/2021, Additional history exists HbA1c [...] filedocumented as of this encounter Care Teams Sweatband Separator Relationship Specialty Start Date End Date Daysi Pham MD [address] [place] [address] [place] [address] PCP - General Family Medicine 07/01/17 documented as of this encounter
--- OUTSIDE RECORDS SUMMARY | 2024-06-26 22:29 | External Medical Summary | Summary of Care ---
Author Name Unknown Organization [facility] Address [address] [place] [address] Phone [phone] Care Team Providers Care Marketing Finance Manager Name Role Phone Daysi Pham MD Primary Care Provide r Reason for Visit * Reason Comments Outpatient Testing Encounter Details Date Type Department Care Team (Late st Contact Info) Description 03/10/2024 1:50 PM EST Laboratory Laboratory [address] [place] [phone] [place] [address] Persistent proteinuria Allergies Active Allergy Reactions Criticality Noted Date Comments Amoxicillin Rash 11/19/2011 Levofloxacin Other (Please comment) 11/13/2013 Weakness, lightheadedness, nausea Niacin Er (Antihyperlipidemic) 01/30/2010 Burned throat. Prednisone 09/03/2012 Blood pressure went up. Bupropion Hcl 01/30/2010 documented as of this encounter (statuses as of 03/11/2024) Medications VITAMIN B COMPLEX PO CAPSIndications:evans pplementation [...] daily . Active nitroglycerin (NITROSTAT) 0.4 MG SUBLIndications: ronic coronary artery disease Place 1 Tab [...] A1c goal of less than 8.0% ([facility]) Use once a day [...] Capsule Take by mouth. Activ e Ipratropium [place] 0.03 % Nasal Solution (Atrovent)Indicati ons:Rhinorrhea ADMINISTER 2 SPRAYS INTO EACH NOSTRIL 4 TIMES A DAY NEEDED FOR RHINITIS. FOR RUNNY NOSE 90 mL 1 03/15/20 23 Active Ipratropium-[place] rol 20-100 MCG/ACT Inhalation Aerosol Solution (Combivent Respimat)Indicatio ns:COPD, group B, by GOLD 2017 classification ([facility]) INHALE 1 PUFF BY MOUTH IN THE MORNING, 1 PUFF AT NOON, 1 PUFF IN THE EVENING, AND 1 PUFF BEFORE BEDTIME 12 g 1 4 5:02 PM EST 04/16/20 23 024 Active OneTouch Verio In Vitro Strip (Glucose Blood)Indications: Type 2 diabetes mellitus with hemoglobin A1c goal of less than 8.0% ([facility]) USE TO TEST BLOOD [...] 10/18/19 24 025 Active OneTouch Delica Plus [id number] ns:Type 2 diabetes mellitus with hemoglobin A1c goal of less than 8.0% ([facility]) USE TO TEST BLOOD [...] A1c goal of less than 8.0% ([facility]) Take 1 Tablet by mouth [...] as of this encounter (statuses as of 03/11/2024) Active Problems Problem Noted Date Diagnosed Date [...] as of this encounter (statuses as of 03/11/2024) Resolved Problems Problem Noted Date Diagnosed Date [...] as of this encounter (statuses as of 03/11/2024) Immunizations Name Administration Dates Next Due COVID-19 mRNA, LNP-s, No Pre serve, 2-Dose Series (Videobot) 03/25/2021,08/27/2020,08/06/2020 COVID-19, MRNA-LNP, PF, 30 M CG/0.3 [...] 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 [place] [address] 06/20/2024 2:00 PM EST Office Visit Cardiology [address] [place] [address] Enrico De La Torre PA-C [address] [place] [address] 06/26/2024 1:40 PM EST Office Visit Family Medicine [address] [place] [phone] Christin Welch PA-C [address] [place] [address] [place] [address] 08/29/2024 2:30 PM EDT Office Visit Nephrology [address] [place] [address] Lissa Owens PA-C [address] [place] [address] 08/29/2024 3:00 PM EDT Nurse Only Ancillary [address] [place] [address] Nurse Zabrina [address] [place] [address] 12/26/2024 2:30 PM EDT Office Visit Cardiology, [facility] [address] [facility] [place] [address] Ashli Alcala CRNP [address] [facility] [place] [phone] Pending Results Name Type Priority Associated Diagnoses Date /Time ANTINUCLEAR ANTIBODY (YUE) EIA SCREEN WITH REFLEX AB QUANT Lab Routine Persistent proteinuria 03/10/2024 1:54 PM EST COMPLEMENT C3 Lab Routine Persistent proteinuria 03/10/2024 1:54 PM EST COMPLEMENT C4 Lab Routine Persistent proteinuria 03/10/2024 1:54 PM EST SERUM FREE LIGHT CHAINS Lab Routine Persistent proteinuria 03/10/2024 1:54 PM EST SERUM IMMUNOFIXATION Lab Routine Persistent proteinuria 03/10/2024 1:54 PM EST URINE PROTEIN ELECTROPHORESIS REFLEX PROFILE, RANDOM URINE Lab Routine Persistent proteinuria 03/10/2024 1:54 PM EST COMPREHENSIVE METABOLIC PANEL Lab Routine Persistent proteinuria 03/10/2024 1:54 PM EST HEPATITIS B SURFACE ANTIGEN WITH REFLEX TO PCR Lab Routine Persistent proteinuria 03/10/2024 1:54 PM EST HEPATITIS B CORE ANTIBODY IGM Lab Routine Persistent proteinuria 03/10/2024 1:54 PM EST HEPATITIS C ANTIBODY SCREEN WITH PROGRESSION TO HEPATITIS C RNA QUANTITATIVE Lab Routine Persistent proteinuria 03/10/2024 1:54 PM EST ANTINUCLEAR ANTIBODY (YUE) SCREEN, ELISSA Lab Routine Persistent proteinuria 03/10/2024 1:54 PM EST HEPATITIS B SURFACE ANTIGEN Lab Routine Persistent proteinuria 03/10/2024 1:54 PM EST HEPATITIS B DNA ADD ON Lab Routine Persistent proteinuria 03/10/2024 1:54 PM EST HEPATITIS C ANTIBODY Lab Routine Persistent proteinuria 03/10/2024 1:54 PM EST HEPATITIS C RNA ADD ON Lab Routine Persistent proteinuria 03/10/2024 1:54 PM EST Health Maintenance Due Date Last Done Comments Alpha-1 Antitrypsin 1967 Sigmoidoscopy 1994 Fecal Occult Blood Test 11/06/2006 11/06/2005 DTap/Tdap Vaccines (2 - Td or Tdap) 10/25/2017 10/26/2007 Colonoscopy 01/24/2019 01/24/2018, 09/01, 08/11/2007, Additional history exists Colorectal Cancer Screening 01/24/2019 Zoster Vaccines (3 of 3) 03/10/2019 01/13/2019, 03/03 CKD PHOS USE SMARTSET 98728 12/28/201912/02, 12/25/2018, 12/24/2018, Additional history exists Cologuard 11/04/2020 11/04/2017 Mammogram 11/19/2023 11/18/2022, 07/0 08/2022, 11/04/2022, Additional history exists COVID-19 Vaccine ( season) 2024 06/14/2023, 04/28/2022, 03/25/2021, Additional history exists Diabetic Eye Exam 02/23/2024 02/22/2023, , 07/02/2021, Additional history exists CKD HGB USE SMARTSET 60556 05/12/202405/12, 05/12/2023, 09/24/2021, Additional history exists HbA1c 05/17/2024 11/15/2023, 05/03, 08/11/2022, Additional history exists GFR 07/30/2024 01/31/2024, 10/31, 05/12/2023, Additional history exists Adult Wellness Visit 08/26/2024 08/27/2023, 08/25/2022, 08/25/2021, Additional history exists Depression Screening 08/26/2024 08/27/2023, 08/27/19 24 Diabetic Foot Exam 08/26/2024 08/27/2023, 0 08/25/2022, 08/25/2021 Albumin/Creatinine Ratio 01/30/2025 024, 11/15/2023, 03/02/2023, Additional history exists O2 ASSESSMENT COMPLETED IN [...] as of this encounter Visit Diagnoses Diagnosis Persistent proteinuria Proteinuria documented in this encounter Care Teams Marketing Finance Manager Relationship Specialty Start Date End Date Daysi Pham MD [address] [place] [address] [place] [phone] PCP - General Family Medicine 07/01/17 documented as of this encounter
--- OUTSIDE RECORDS SUMMARY | 2024-06-26 22:29 | External Medical Summary ---
Author Name Unknown Address Unknown Organization [id number]:[facility] [place] [address] [place] [address] Laboratory Report Ordering Provider Test Date Status RAPHAEL MOON 03/10/2024 13:54:57 Final Observation Date Value Abnormality Reference (Units) Status PARAPROTEIN NORMAL/ABNORMAL 03/10/2024 13:54:57 Normal Normal Final Immunofixation for Serum or Plasma 03/10/2024 13:54:57 No monoclonal gammopathy detected. Final Performing Location [facility] [place] - [address] [place] [address]
--- OUTSIDE RECORDS SUMMARY | 2024-06-26 22:29 | External Medical Summary ---
Author Name Unknown Address Unknown Organization [id number][place] [place] [address] [facility] [address] Laboratory Report Ordering Provider Test Date Status RAPHAEL MOON 03/10/2024 13:54:57 Final Observation Date Value Abnormality Reference (Units) Status PARAPROTEIN NORMAL/ABNORMAL 03/10/2024 13:54:57 Normal Normal Final Protein, Urine 03/10/2024 13:54:57 195 (mg/dL) Final Albumin / Total protein, Urine 03/10/2024 13:54:57 82.0 (%) Final Gamma globulin / protein (UPEP) 03/10/2024 13:54:57 18.0 (%) Final Protein Fractions [Interpretation] in Urine by Electrophoresis Narrative 03/10/2024 13:54:57 Glomerular pattern, no paraprotein detected. Final Performing Location [facility] [place] [address] [address]
--- OUTSIDE RECORDS SUMMARY | 2024-06-26 22:29 | External Medical Summary ---
Author Name Unknown Address Unknown Organization [id number]:LABORATORY [facility] [place] - [address] [facility] [address] Laboratory Report Ordering Provider Test Date Status JUDAH BURNS 03/10/2024 13:54:57 Final Normal: <30 mg/g creatinine< br/>High: 30-300 mg/g creatinine
Very High: >300 mg/g creatinine
Nephrotic: >2200 mg/g creatinine Observation Date Value Abnormality Reference (Units ) Status Albumin, Urine 03/10/2024 13:54:57 113.00 (mg/dL) Final Creatinine, Urine 03/10/2024 13:54:57 123 (mg/dL) Final Albumin/Creatinine [Mass Ratio] in Urine 03/10/2024 13:54:57 919 Above high normal <30 (mg/g Creat) Final Performing Location LABORATORY [facility] [place] - [address] [facility] [address]
--- OUTSIDE RECORDS SUMMARY | 2024-06-26 22:29 | External Medical Summary | Summary of Care ---
Author Name Unknown Organization [facility] Address [address] [place] [address] Phone [phone] Care Team Providers Care Maintenance Journeyman Name Role Phone Daysi Pham MD Primary Care Provide r Reason for Visit * Reason Comments Chronic Kidney Disease (CKD) Encounter Details Date Type Department Care Team (Late st Contact Info) Description 03/10/2024 2:30 PM EST Office Visit Nephrology [address] [place] [phone] Lissa Owens PA-C [address] [facility] [place] [address] Persistent proteinuria*; Stage 3a chronic kidney disease (HCC); HTN, goal below 130/80; Hyperkalemia Allergies Active Allergy Reactions Criticality Noted Date Comments Amoxicillin Rash 11/19/2011 Levofloxacin Other (Please comment) 11/13/2013 Weakness, lightheadedness, nausea Niacin Er (Antihyperlipidemic) 01/30/2010 Burned throat. Prednisone 09/03/2012 Blood pressure went up. Bupropion Hcl 01/30/2010 documented as of this encounter (statuses as of 03/14/2024) Medications VITAMIN B COMPLEX PO CAPSIndications:evans pplementation [...] Capsule Take by mouth. Activ e Ipratropium Turtlepoint 0.03 % Nasal Solution (Atrovent)Indicati ons:Rhinorrhea ADMINISTER [...] 10/18/19 24 025 Active OneTouch Delica Plus [id number] ns:Type 2 diabetes mellitus with hemoglobin A1c [...] 8.0% (FORMERLY [facility]) Take 1 Tablet by mouth in the [...] as of this encounter (statuses as of 03/14/2024) Active Problems Problem Noted Date Diagnosed Date [...] as of this encounter (statuses as of 03/14/2024) Resolved Problems Problem Noted Date Diagnosed Date [...] as of this encounter (statuses as of 03/14/2024) Immunizations Name Administration Dates Next Due COVID-19 mRNA, LNP-s, No Pre serve, 2-Dose Series ([email or web address]) 03/25/2021,08/27/2020,08/06/2020 COVID-19, MRNA-LNP, PF, 30 M CG/0.3 mL, 12 YRS AND ABOVE, IM ([employer]) 06/14/2023 Covid-19, Mrna, Lnp-s, Pf, B ivalent, [...] 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 Not on file Not on file Not on file Not on file Not on file Not on file Not on file documented as of this encounter Last Filed Vital Signs Vital Sign Reading Time Taken Comments Blood Pressure 102/57 03/10/2024 2:17 PM EST Pulse 76 03/10/2024 2:17 PM EST Temperature 36.7 C (98 F) 03/10/2024 2:17 PM EST Respiratory Rate 18 03/10/2024 2:17 PM EST Oxygen Saturation 88% 03/10/2024 2:17 PM EST on nasal O2 Inhaled Oxygen Concentration - - Weight 99.8 kg (220 lb) 03/10/2024 2:17 PM EST Height - - Body Mass Index 37.76 02/18/2024 10:55 AM EDT documented in this encounter Progress Notes * Lissa Owens PA-C - 03/10/2024 2:30 PM EST NEPHROLOGY CLINIC NOTE Nephrology [address] [place] [address] Patient Name: Pastora Yee Patient Active Problem List Diagnosis LACUNAR STROKE > PERIPH FIELD DEFECT Chronic coronary artery disease Diverticulosis of colon Lung nodule CEREBROVASCULAR DZ, POST-STROKE Osteoarthrosis HTN, goal below 140/90 Dyslipidemia, goal LDL below 100 Bilateral carotid artery stenosis Atherosclerotic peripheral vascular disease with intermittent claudication (HCC) Fatty liver Persistent insomnia Subclavian artery stenosis, left (HCC) IBS (irritable bowel syndrome) Postmenopausal atrophic vaginitis Chronic pain of both ankles Psoriasis Secondary polycythemia Aphasia as late effect of stroke Paroxysmal atrial fibrillation (HCC) COPD, group B, by GOLD 2017 classification (HCC) Gastroesophageal reflux disease without esophagitis Type 2 diabetes mellitus with hemoglobin A1c goal of less than 8.0% (HCC) Type 2 diabetes, controlled, with neuropathy (HCC) Anxiety state Mesenteric artery stenosis (HCC) Chronic kidney disease, stage 3a (HCC) BACKGROUND: 73 year old female presents for f/u of progressive proteinuria. PMH includes 2019 lacunar stroke, 02 dependent, w/c dependent, 2019 diagnosed w/ DM, reformed tobacco abuser, severe/diffuse vascular disease including BL carotid and mesenteric and subclavian arterystenosis, copd Has spells every fall where she has 3 days of wheezing; had severe Reports cardiology was trying to get BP up a bit; cardiology felt this had role in her 11/2023 syncopal episodes. Cardiology changed her meds/held her lisinopril and since then many fewer spells whereshe feels she'll pass out. Also w/ qHS palpitations. 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 Home blood pressure checks: n/a History of stones: N Family history of CKD or ESRD: N NSAID use: n/a Herbals/supplements: n/a Today 03/10/24 Denies any recent hospitalizations, procedures or infections. Presents with today [facility] admission Oct 2 x 5 days and pacemaker placed. Reports bps were variable with admission Reports days prior was having chest pains and montior was placed. She received a phone call advising her to report to hospital. Reports dizziness has improved. A few bouts but meds were adjusted and now is much better Currently with Lisinopril 5 mg ,Isosorbide ER 30 mg, Metoprolol ER 25 mg Has had cards fu next appt is set for May. Reports bp cuff at home and checking typically in 120/70s. States bottom number is typically low REVIEW OF SYSTEMS General: + fatigue Head: No significant headache Respiratory: + wheezing, + shortness of breath - off and on - Currently with oxygen Cardiovascular:No chest pain, No palpitations, and No syncope. No falls Gastrointestinal: + nausea,- with meds for tis No vomiting, diarrhea No blood in stools Urinary: No dysuira, No hematuria. No flank pain Musculoskeletal: No edema Skin: No itching Current Outpatient Medications Medication Sig Dispense Refill [...] (5000 UT) Oral Capsule Take by mouth. Ipratropium Turtlepoint 0.03 % Nasal Solution (Atrovent) ADMINISTER 2 SPRAYS INTO EACH NOSTRIL 4 TIMES A DAY NEEDED FOR RHINITIS. FOR RUNNY NOSE 90 mL 1 Ipratropium-Albuterol 20-100 MCG/ACT Inhalation Aerosol Solution (Combivent Respimat) INHALE 1 PUFFBY MOUTH IN THE MORNING, 1 PUFF AT NOON, 1 PUFF IN THE EVENING, AND 1 PUFF BEFORE BEDTIME 12 g 1 medineeringTouch Verio In Vitro Strip (Glucose Blood) USE TO TEST BLOOD SUGAR ONCE A DAY 100 Strip 3 Lisinopril 5 MG Oral Tablet (Prinivil) TAKE ONE TABLET BY MOUTH EVERY DAY 90 Tablet 3 Atorvastatin Calcium 80 MG Oral Tablet (Lipitor) TAKE ONE TABLET BY MOUTH EVERYday 100 Tablet 3 medineeringTouch Delica Plus [id number] USE TO TEST BLOOD SUGAR ONCE A DAY DIRECTED 100 Each 1 Amitriptyline HCl 10 MG Oral Tablet (Elavil) take one tablet by mouth at bedtime 100 Tablet 1 Empagliflozin 10 MG Oral Tablet (Jardiance) Take 1 Tablet by mouth in the morning. 90 Tablet 3 Apixaban 5 MG Oral Tablet (Eliquis) TAKE ONE TABLET BY MOUTH TWICE A DAY 200 Tablet 1 Pregabalin 25 MG Oral Capsule (Lyrica) TAKE ONE CAPSULE BY MOUTH EVERY MORNING AND TAKE ONE CAPSULEBEFORE BEDTIME 60 Capsule 2 Ipratropium-Albuterol 0.5-2.5 (3) MG/3ML Inhalation Solution (Duoneb) Inhale 3 mL via nebulizer in the morning and 3 mL at noon and 3 mL in the evening and 3 mL before bedtime. 90 mL 3 Esomeprazole Magnesium 40 MG Oral Capsule Delayed Release Take 1 Capsule by mouth 2 times a day with morning and evening meals. 200 Capsule 1 Isosorbide Mononitrate ER 30 MG Oral Tablet Extended Release 24 Hour (Imdur) TAKE ONE TABLET BY MOUTH EVERY MORNING 90 Tablet 3 dilTIAZem HCl ER Coated Beads 120 MG Oral Capsule Extended Release 24 Hour (Cardizem CD) Take 1 Capsule by mouth in the morning. 100 Capsule 3 Metoprolol Succinate ER 25 MG Oral Tablet Extended Release 24 Hour (Toprol XL) Take 1 Tablet by mouth 2 times a day. 200 Tablet 3 No current facility-administered medications for this visit. PHYSICAL EXAMINATION Last 4 BP Readings: BP Readings from Last 4 Encounters: 03/10/24 102/57 02/18/24 142/60 01/31/24 124/70 01/20/24 112/60 Last 3 Weights: Wt Readings from Last 3 Encounters: 02/18/24 102.5 kg (226 lb) 01/31/24 101.6 kg (224 lb) 01/20/24 100.7 kg (222 lb) BP 102/57 (BP Site: Right Arm, BP Position: Sitting, BP Cuff Size: Large) | Pulse 76 | Temp 36.7 C (98 F) | Resp 18 | Wt 99.8 kg (220 lb) | SpO2 88% Comment: on nasal O2 | BMI 37.76 kg/m | BSA2.12 m Wt Readings from Last 1 Encounters: 02/18/24 102.5 kg (226 lb) General appearance: alert, no apparent distress. Ambulatory with a wheelchair HEAD: Normocephalic, No masses, lesions, tenderness Respiratory: clear to auscultation, no wheezes, and no crackles Heart: regular rate and regular rhythm Abdomen: abdomen soft, non-tender, and no CVA tenderness EXTREMITIES: No edema, No cyanosis or clubbing Skin: skin color, texture, turgor are normal NEURO: alert & oriented x 3 with fluent speech, no focal motor/sensory deficits No tremor Patient is a reliable historian of events LABS: Latest Reference Range & Units 07/02/21 13:16 09/24/21 10:51 08/11/22 13:24 05/12/23 11:02 11/15/23 13:44 11/22/23 13:38 01/31/24 14:34 SODIUM 135 - 146 mmol/L 143 141 142 138 139 141 POTASSIUM 3.5 - 5.1 mmol/L 4.0 4.8 4.8 5.0 5.6 (H) 4.4 4.0 CHLORIDE 98 - 107 mmol/L 104 98 100 97 (L) 96 (L) 100 CO2 22 - 32 mmol/L 27 32 34 (H) 30 31 32 BUN 6 - 20 mg/dL 12 15 16 19 21 (H) 17 CREATININE 0.5 - 1.0 mg/dL 0.7 0.8 0.9 1.2 (H) 1.2 (H) 1.1 (H) EGFR >=60 mL/min 86 77 68 46 (L) 46 (L) 54 (L) ANION GAP 7 - 15 mmol/L 12 11 8 11 12 9 GLUCOSE 70 - 120 mg/dL 98 119 104 148 (H) 137 (H) 166 (H) CALCIUM 8.4 - 10.2 mg/dL 8.8 9.9 9.1 9.7 9.7 9.8 (H): Data is abnormally high (L): Data is abnormally low Latest Reference Range & Units 03/17/21 12:17 03/09/22 09:48 03/02/23 06:10 11/15/23 13:44 01/31/24 14:34 Albumin / Creatinine Ratio, Urine <30 mg/g Creat 24 46 (H) 124 (H) 555 (H) 1,971 (H) Protein/ Creatinine Ratio, Urine <150 mg/g 3,029 (H) (H): Data is abnormally high IMAGING: EXAM US RENAL-11/19/2023 2:28 pm HISTORY worsening microalbuminuria. on ACEI, stage 3a CKD TECHNIQUE Real time sonographic imaging. COMPARISON None. FINDINGS RIGHT KIDNEY: 8.9 cm x 3.5 cm x 4.2 cm. Mildly atrophic. No hydronephrosis, shadowing calculi, or mass. LEFT KIDNEY: 12.0 cm x 6.1 cm x 5.2 cm. Normal size and echogenicity. No hydronephrosis, shadowing calculi, or mass. BLADDER: Partially filled. AORTA: Visualized portions normal in caliber. IMPRESSION IMPRESSION Mildly atrophic right kidney. ASSESSMENT/PLAN: The patient's most recent labs (from today) were reviewed and the assessment/plan is as follows: Markedly progressive proteinuria over 2 years - Now nearing nephrotic range w/o e/o nephrotic syndrome. Cause unclear. Notably though she also has CKD3 now. CKD has emerged on blood tests as proteinuria worsened since 2023. No structural explanation on renal u/s for this. Additional testing placed for further evaluation of proteinuria's but cannot rule out possible kidney biopsy. Blood test previously ordered but completed today. Persistent proteinuria (Primary) Continue SGLT2i. Now with lose dose Acei - Lisinopril 5 mg Labs previously ordered completed today (-YUE, C3, C4, sPEP, UPEP (random), kappa/lambda ratio, CMP, Hep B SAg and core Ab, HCV Ab) - NEPHROLOGY FOLLOW UP APPT (DEPARTMENT USE ONLY); Future; Expected date: 07/01/2024 - ALBUMIN / CREATININE RATIO, URINE; Future; Expected date: 03/10/2024 - PROTEIN/ CREATININE RATIO, URINE; Future; Expected date: 03/10/2024 - URINALYSIS WITH MICROSCOPIC EXAM; Future; Expected date: 03/10/2024 Stage 3a chronic kidney disease (HCC) Noted since beginning of this year HTN, goal below 130/80 Med changes noted by cards . Restarted Lisinopril 5 mg. Also currently with: Isosorbide ER 30 mg, Metoprolol ER 25 mg Cont to monitor bp at home Hyperkalemia Will reassess with current labs - NEPHROLOGY FOLLOW UP APPT (DEPARTMENT USE ONLY); Future; Expected date: 07/01/2024 Labs completed today No changes to meds Cont to monitor bp -monitor for presyncopal sx/changes Discussed monitoring sodium intake Avoid medicines like aleve, advil, ibuprofen, aspirin more than 81 mg daily and other NSAIDS which are not good for kidney patients. Take only tylenol (acetaminophen) up to 2000 mg daily as needed for pain or as directed by your primary care provider. Reviewed previous status of kidney function and goals of care. All questions were answered. Lissa Owens PA-C Nephrology [address] [place] [address] documented in this encounter Nursing Notes * Lilly Tee RN - 03/10/2024 2:21 PM EST Follow up visit today. Labs done today as ordered. Sig Other with pt today. Recently had pacemaker changed and was in the hospital for a few days as they were having some difficulty regulating rate. documented in this encounter Plan of Treatment Upcoming Encounters Date Type Department Care Team (Late st Contact Info) Description 05/19/2024 1:00 PM EST Cardiac Studies Cardiology, [facility] [address] [facility] [place] [phone] [facility] [address] [place] [address] 06/20/2024 2:00 PM EST Office Visit Cardiology [address] [place] [address] Enrico De La Torre PA-C [address] [place] [address] 06/26/2024 1:40 PM EST Office Visit Family Medicine [address] [place] [phone] Christin Welch PA-C [address] [place] [address] [place] [phone] 08/29/2024 2:30 PM EDT Office Visit Nephrology [address] [place] [address] Lissa Owens PA-C [address] [place] [address] 08/29/2024 3:00 PM EDT Nurse Only Ancillary [address] [place] [address] [place], Nurse Annual [facility]ness [address] [place] [address] [place] [address] 12/26/2024 2:30 PM EDT Office Visit Cardiology, [facility] [place] [address] Ashli Alcala CRNP [address] [facility] [place] [id number] Health Maintenance Due Date Last Done Comments Alpha-1 Antitrypsin 1967 Sigmoidoscopy 1994 Fecal Occult Blood Test 11/06/2006 11/06/2005 DTap/Tdap Vaccines (2 - Td or Tdap) 10/25/2017 10/26/2007 Colonoscopy 01/24/2019 01/24/2018, 09/01, 08/11/2007, Additional history exists Colorectal Cancer Screening 01/24/2019 Zoster Vaccines (3 of 3) 03/10/2019 01/13/2019, 03/03 CKD PHOS USE SMARTSET 71541 12/28/201912/02, 12/25/2018, 12/24/2018, Additional history exists Cologuard 11/04/2020 11/04/2017 Mammogram 11/19/2023 11/18/2022, 07/0 08/2022, 11/04/2022, Additional history exists COVID-19 Vaccine ( season) 2024 06/14/2023, 04/28/2022, 03/25/2021, Additional history exists Diabetic Eye Exam 02/23/2024 02/22/2023, , 07/02/2021, Additional history exists CKD HGB USE SMARTSET 09524 05/12/202405/12, 05/12/2023, 09/24/2021, Additional history exists HbA1c [...] Procedure Name Priority Date/Time Associated Diagnosis Comments PROTEIN/ CREATININE RATIO, URINE Routine 03/10/2024 1:54 PM EST Persistent proteinuria ALBUMIN / CREATININE RATIO, URINE Routine 03/10/2024 1:54 PM EST Persistent proteinuria documented in this encounter Results * (ABNORMAL) URINALYSIS WITH MICROSCOPIC EXAM (03/10/2024 1:54 PM EST) Color, Urine Yellow Light Yellow, Yellow, Dark Yellow 03/11/2024 5:17 AM EST LAB[facility] Clarity, Urine Clear Clear 03/11/2024 5:17 AM EST LABORATORY C Glucose, Urine 500(A) Negative mg/dL 03/11/2024 5:17 AM EST [facility] Bilirubin, Urine Negative Negative 03/11/2024 5:17 AM EST [facility] Ketone, Urine Negative Negative mg/dL 03/11/2024 5:17 AM EST LABORATORY C Specific [place], Urine 1.032(H) 1.003 - 1.030 03/11/2024 5:17 AM EST [facility] Blood, Urine Trace(A) Negative 03/11/2024 5:17 AM EST [facility] pH, Urine 5.5 5.0 - 7.5 Units 03/11/2024 5:17 AM EST [facility] Protein, Urine >=300(A) Negative mg/dL 03/11/2024 5:17 AM EST [facility] Urobilinogen, Urine 0.2 0.2, 1.0 mg/dL 03/11/2024 5:17 AM EST LABORATORY C Nitrite, Urine Negative Negative 03/11/2024 5:17 AM EST [facility] Esterase, Urine Negative Negative 03/11/2024 5:17 AM EST [facility] RBC, Urine 3-5(A) 0 - 2 /HPF 03/11/2024 5:17 AM EST [facility] WBC, Urine 6-9(A) 0 - 2 /HPF 03/11/2024 5:17 AM EST [facility] Bacteria, Urine >200(A) 0 - 25 /HPF 03/11/2024 5:17 AM EST [facility] Squamous Epithelial Cells, Urine Many(A) None /HPF 03/11/2024 5:17 AM EST [facility] Hyaline, Cast, Urine 1-4(A) None /LPF 03/11/2024 5:17 AM EST [facility] Yeast, Urine Present(A) None /HPF 03/11/2024 5:17 AM EST LABORATORY [facility] Urine Non-blood Collection / Unknown 03/10/2024 1:54 PM EST 03/10/2024 2:26 PM EST Narrative [facility]ORY [facility] - 03/11/2024 5:17 AM EST Microscopic results may be inaccurate due to inadequate urine volume. Lissa Owens PA-C LAB URINE ORDERABLES Final Result Performing Organization Address City/State/[facility] Co de Phone Number [facility]ATORY [facility] [address] [place] [address] * (ABNORMAL) PROTEIN/ CREATININE RATIO, URINE (03/10/2024 1:54 PM EST) Protein/ Creatinine Ratio, Urine 1,585(H) <150 mg/g 03/11/2024 5:32 AM EST LABORATORY [facility] Protein, Random Urine 195 mg/dL 03/11/2024 5:32 AM EST [facility]ORY [facility] Creatinine, Random Urine 123 mg/dL 03/11/2024 5:32 AM EST [facility] Urine Non-blood Collection / Unknown 03/10/2024 1:54 PM EST 03/10/2024 2:26 PM EST Narrative [facility]ORY [facility] - 03/11/2024 5:32 AM EST Normal: <150 mg/g creatinine High: 150-500 mg/g creatinine Very High: >500 mg/g creatinine Nephrotic: >3000 mg/g creatinine Lissa Owens PA-C LAB URINE ORDERABLES Final Result Performing Organization Address [facility]/ZIP Co de Phone Number LABORATORY [facility] [address] [place] [address] * (ABNORMAL) ALBUMIN / CREATININE RATIO, URINE (03/10/2024 1:54 PM EST) Albumin, Random Urine 113.00 mg/dL 03/11/2024 5:32 AM EST [facility]ORY [facility] Creatinine, Random Urine 123 mg/dL 03/11/2024 5:32 AM EST [facility] Albumin / Creatinine Ratio, Urine 919(H) <30 mg/g Creat 03/11/2024 5:32 AM EST [facility] Urine Non-blood Collection / Unknown 03/10/2024 1:54 PM EST 03/10/2024 2:26 PM EST Narrative [facility] - 03/11/2024 5:32 AM EST Normal: <30 mg/g creatinine High: 30-300 mg/g creatinine Very High: >300 mg/g creatinine Nephrotic: >2200 mg/g creatinine Lissa Owens PA-C LAB URINE ORDERABLES Final Result Performing Organization Address [facility] Co de Phone Number LABORATORY [place] [address] [place] [address] documented in this encounter Visit Diagnoses Diagnosis Persistent proteinuria- Primary Proteinuria Stage 3a chronic kidney disease (HCC) HTN, goal below 130/80 Unspecified essential hypertension Hyperkalemia Hyperpotassemia documented in this encounter Care Teams Maintenance Journeyman Relationship Specialty Start Date End Date Daysi Pham MD [address] [place] [address] [place] [phone] PCP - General Family Medicine 07/01/17 documented as of this encounter"
--- OUTSIDE RECORDS SUMMARY | 2024-06-26 22:29 | External Medical Summary | Summary of Care ---
Author Name Unknown Organization [facility] Address [address] [place] [address] Phone [phone] Care Team Providers Care Cold Meat Cook Name Role Phone Daysi Pham MD Primary Care Provide r Reason for Visit * Reason Comments Medication Refill Encounter Details Date Type Department Care Team (Late st Contact Info) Description 03/19/2024 Refill Family Medicine [address] [phone] Daysi Pham MD [address] [place] [address] [place] [id number] Type 2 diabetes, controlled, with neuropathy (HCC) Allergies Active Allergy Reactions Criticality Noted Date Comments Amoxicillin Rash 11/19/2011 Levofloxacin Other (Please comment) 11/13/2013 Weakness, lightheadedness, nausea Niacin Er (Antihyperlipidemic) 01/30/2010 Burned throat. Prednisone 09/03/2012 Blood pressure went up. Bupropion Hcl 01/30/2010 documented as of this encounter (statuses as of 03/20/2024) Medications VITAMIN B COMPLEX PO CAPSIndications:evans pplementation [...] hemoglobin A1c goal of less than 8.0% ([facility]) Use once a day Dx: [...] Capsule Take by mouth. Activ e Ipratropium [place] 0.03 % Nasal Solution (Atrovent)Indicati ons:Rhinorrhea ADMINISTER 2 SPRAYS INTO EACH NOSTRIL 4 TIMES A DAY NEEDED FOR RHINITIS. FOR RUNNY NOSE 90 mL 1 03/15/20 23 Active Ipratropium-[place] rol 20-100 MCG/ACT Inhalation Aerosol Solution (Combivent Respimat)Indicatio ns:COPD, group B, by GOLD 2017 classification ([facility]) INHALE 1 PUFF BY MOUTH IN THE MORNING, 1 PUFF AT NOON, 1 PUFF IN THE EVENING, AND 1 PUFF BEFORE BEDTIME 12 g 1 4 5:02 PM EST 04/16/20 23 024 Active OneTouch Verio In Vitro Strip (Glucose Blood)Indications: Type 2 diabetes mellitus with hemoglobin A1c goal of less than 8.0% ([facility]) USE TO TEST BLOOD SUGAR [...] 10/18/19 24 025 Active OneTouch Delica Plus [id number] ns:Type 2 diabetes mellitus with hemoglobin A1c goal of less than 8.0% ([facility]) USE TO TEST BLOOD SUGAR ONCE A DAY DIRECTED 100 Each 1 10/30/19 24 025 Active Amitriptyline HCl 10 MG Oral Tablet (Elavil)Indication s:Insomnia, unspecified type take one tablet by mouth at bedtime 100 Tablet 1 4 8:50 AM EDT 11/01/19 24 Active Empagliflozin 10 MG Oral Tablet (Jardiance)Indicat ions:Type 2 diabetes mellitus with hemoglobin A1c goal of less than 8.0% ([facility]) Take 1 Tablet by mouth in the morning. 90 Tablet 3 4 10:14 AM EDT 11/02/19 24 Active Apixaban 5 MG Oral Tablet (Eliquis)Indicatio ns:Cerebrovascular disease, arteriosclerotic, post-stroke,Paroxy smal atrial fibrillation ([facility]) TAKE ONE TABLET BY MOUTH TWICE [...] ONE CAPSULE BEFORE BEDTIME 60 Capsule 2 03/20/20 24 Active Pregabalin 25 MG Oral Capsule (Lyrica)Indication s:Type 2 diabetes, controlled, with neuropathy (HCC) TAKE ONE CAPSULE BY MOUTH EVERY MORNING AND TAKE ONE CAPSULE BEFORE BEDTIME 60 Capsule 2 4 6:48 AM EDT 12/25/19 24 024 Discontin ued(Refil l) documented as of this encounter (statuses as of 03/20/2024) Active Problems Problem Noted Date Diagnosed Date [...] as of this encounter (statuses as of 03/20/2024) Resolved Problems Problem Noted Date Diagnosed Date [...] as of this encounter (statuses as of 03/20/2024) Immunizations Name Administration Dates Next Due COVID-19 mRNA, LNP-s, No Pre serve, 2-Dose Series ([employer]) 03/25/2021,08/27/2020,08/06/2020 COVID-19, MRNA-LNP, PF, 30 M CG/0.3 mL, 12 YRS AND ABOVE, IM ([employer]) 06/14/2023 Covid-19, Mrna, Lnp-s, Pf, B ivalent, 30 Mcg, IM, 12 yrs and above ([employer]) 04/28/2022 H1N1 2009 Influenza, IM 05/15/2009 Pneumococcal [...] 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 Not on file Not on file Not on file Not on file Not on file Not on file documented as of this encounter Miscellaneous Notes * Telephone Encounter - Daysi Pham MD - 03/20/2024 5:05 PM EST Signed Prescriptions: Disp Refills Pregabalin 25 MG Oral Capsule (Lyrica) 60 Cap*2 Sig: TAKE ONE CAPSULE BY MOUTH EVERY MORNING AND TAKE ONE CAPSULE BEFORE BEDTIME Authorizing Provider: DAYSI PHAM * Telephone Encounter - Makayla Tirado RPh - 03/20/2024 4:40 PM EST Pending Prescriptions: Disp Refills Pregabalin 25 MG Oral Capsule (Lyrica) 60 Cap*2 Sig: TAKE ONE CAPSULE BY MOUTH EVERY MORNING AND TAKE ONE CAPSULE BEFORE BEDTIME * Telephone Encounter - Makayla Tirado RPh - 03/20/2024 4:40 PM EST I have reviewed the patients controlled substance dispensing history in the Prescription Drug Monitoring Program in compliance with the [facility] regulations before prescribing a controlled substance. PDMP checked on 03/20/2024. Pending Prescriptions: Disp Refills Pregabalin 25 MG Oral Capsule (Lyrica) 60 Cap*2 Sig: TAKE ONE CAPSULE BY MOUTH EVERY MORNING AND TAKE ONE CAPSULE BEFORE BEDTIME Last Visit: 12/06/2023 (in office), Visit date not found (telemedicine) Next Visit: 06/26/2024 Date medication was last filled: 02/20 Date medication is due for refill: 03/21 Pharmacy: [facility] Is this request for a controlled substance? Yes and Urine Drug Screen Not completed Toxicology results: No results found. However, due to the size of the patient record, not all encounters were searched.Please check Results Review for a complete set of results. Please approve if appropriate. Thank you, Makayla Tirado, PharmD Clinical Pharmacist [facility] ([facility]) 03/20/24 4:40 PM [phone] documented in this encounter Plan of Treatment Upcoming Encounters Date Type Department Care Team (Late st Contact Info) Description 05/19/2024 1:00 PM EST Cardiac Studies Cardiology, [facility] [address] [place] [address] [facility] [address] [place] [address] 06/20/2024 2:00 PM EST Office Visit Cardiology [address] [place] [address] Enrico De La Torre PA-C [address] [place] [address] 06/26/2024 1:40 PM EST Office Visit Family Medicine [address] [place] [phone] Christin Welch PA-C [address] [place] [address] [place] [address] 08/29/2024 2:30 PM EDT Office Visit Nephrology [address] [place] [address] Lissa Owens PA-C [address] [place] [address] 08/29/2024 3:00 PM EDT Nurse Only Ancillary [address] [place] [address] [place], Nurse Annual Wellness [address] [place] [address] [place] [address] 12/26/2024 2:30 PM EDT Office Visit Cardiology, [facility] 132 [facility] [place] [address] Ashli Alcala CRNP [address] [facility] [place] [phone] Health Maintenance Due Date Last Done Comments Alpha-1 Antitrypsin 1967 Sigmoidoscopy 1994 Fecal Occult Blood Test 11/06/2006 11/06/2005 DTap/Tdap Vaccines (2 - Td or Tdap) 10/25/2017 10/26/2007 Colonoscopy 01/24/2019 01/24/2018, 09/01, 08/11/2007, Additional history exists Colorectal Cancer Screening 01/24/2019 Zoster Vaccines (3 of 3) 03/10/2019 01/13/2019, 03/03 CKD PHOS USE SMARTSET 11584 12/28/201912/02, 12/25/2018, 12/24/2018, Additional history exists Cologuard 11/04/2020 11/04/2017 Mammogram 11/19/2023 11/18/2022, 2023, 11/04/2022, Additional history exists COVID-19 Vaccine ( season) 2024 06/14/2023, 04/28/2022, 03/25/2021, Additional history exists Diabetic Eye Exam 02/23/2024 02/22/2023, , 07/02/2021, Additional history exists CKD HGB USE SMARTSET 00551 05/12/202405/12, 05/12/2023, 09/24/2021, Additional history exists HbA1c [...] uncontrolled documented in this encounter Care Teams Cold Meat Cook Relationship Specialty Start Date End Date Daysi Pham MD [address] [place] [address] [place] [address] PCP - General Family Medicine 07/01/17 documented as of this encounter
--- OUTSIDE RECORDS SUMMARY | 2024-06-26 22:29 | External Medical Summary ---
Author Name Unknown Address Unknown Organization [id number]:[facility] [place] [address] [facility] [address] Laboratory Report Ordering Provider Test Date Status RAPHAEL MOON 03/10/2024 13:54:57 Final Observation Date Value Abnormality Reference (Units ) Status Hep B Core IgM 03/10/2024 13:54:57 Negative Negat willi Final Performing Location [facility] - [address] [facility] [address]
--- OUTSIDE RECORDS SUMMARY | 2024-06-26 22:29 | External Medical Summary ---
Author Name Unknown Address Unknown Organization [id number]:[facility]ATORY [facility] [place] - [address] [place] [address] Laboratory Report Ordering Provider Test Date Status RAPHAEL MOON 03/10/2024 13:54:57 Final Observation Date Value Abnormality Reference (Units ) Status Complement C3c [Mass/volume] in Serum or Plasma 03/10/2024 13:54:57 149 90-180 (mg/dL) Final Performing Location LABORATORY C - [address] [place] [place] [address]
--- OUTSIDE RECORDS SUMMARY | 2024-06-26 22:29 | External Medical Summary ---
Author Name Unknown Address Unknown Organization K01:[facility] - [address] [facility] [address] Laboratory Report Ordering Provider Test Date Status RAPHAEL MOON 03/10/2024 13:54:57 Final Observation Date Value Abnormality Reference (Units ) Status Hep C Ab 03/10/2024 13:54:57 Negative Negative Final Further HCV quantitative art ting not performed per protocol. [facility] [address] [facility] [address]
--- OUTSIDE RECORDS SUMMARY | 2024-06-26 22:29 | External Medical Summary ---
Author Name Unknown Address Unknown Organization [id number]:[facility]ATORY [facility] [place] - [address] [facility] [address] Laboratory Report Ordering Provider Test Date Status SALIMA BURNSITIS 03/10/2024 13:54:57 Final Microscopic results may be i naccurate due to inadequate urine volume. Observation Date Value Abnormality Reference (Units ) Status Color of Urine by Auto 03/10/2024 13:54:57 Yellow Light Yellow, Yellow, Dark Yellow Final Clarity, Urine 03/10/2024 13:54:57 Clear Clear Final Glucose [Mass/volume] in Urine by Automated test strip 03/10/2024 13:54:57 500 Abnormal Negative (mg/dL) Final Bilirubin.total [Presence] in Urine by Automated test strip 03/10/2024 13:54:57 Negative Negative Final Ketones [Mass/volume] in Urine by Automated test strip 03/10/2024 13:54:57 Negative Negative (mg/dL) Final Specific gravity, Urine 03/10/2024 13:54:57 1.032 Above high normal 1.003-1.030 Final Hemoglobin [Presence] in Urine by Automated test strip 03/10/2024 13:54:57 Trace Abnormal Negative Final pH, Urine 03/10/2024 13:54:57 5.5 5.0-7.5 (Units) Final Protein [Mass/volume] in Urine by Automated test strip 03/10/2024 13:54:57 >=300 Abnormal Negative (mg/dL) Final Urobilinogen [Mass/volume] in Urine by Automated test strip 03/10/2024 13:54:57 0.2 0.2, 1.0 (mg/dL) Final Nitrite [Presence] in Urine by Automated test strip 03/10/2024 13:54:57 Negative Negative Final Leukocyte esterase [Presence] in Urine by Automated test strip 03/10/2024 13:54:57 Negative Negative Final RBC, Urine 03/10/2024 13:54:57 3-5 Abnormal 0-2 (/HPF) Final WBC, Urine 03/10/2024 13:54:57 6-9 Abnormal 0-2 (/HPF) Final Bacteria [#/area] in Urine sediment by Microscopy high power field 03/10/2024 13:54:57 >200 Abnormal 0-25 (/HPF) Final Epithelial cells.squamous [#/area] in Urine sediment by Microscopy high power field 03/10/2024 13:54:57 Many Abnormal None (/HPF) Final Hyaline casts, Urine 03/10/2024 13:54:57 1-4 Abnormal None (/LPF) Final Yeast [#/area] in Urine sediment by Microscopy high power field 03/10/2024 13:54:57 Present Abnormal None (/HPF) Final Performing Location LABORATORY [facility] [place] - [address] [facility] [address]
--- OUTSIDE RECORDS SUMMARY | 2024-06-26 22:29 | External Medical Summary ---
Author Name Unknown Address Unknown Organization K01:LABORATORY [address] [facility] [address] Laboratory Report Ordering Provider Test Date Status RAPHAEL MOON 03/10/2024 13:54:57 Final Observation Date Value Abnormality Reference (Units ) Status Nuclear IgG Ab [Ratio] in Serum by Immunoassay 03/10/2024 13:54:57 Negative Negative Final DNA double strand Ab [Presence] in Serum 03/10/2024 13:54:57 Negative Negative Final DOUBLE STRANDED DNA VALUE - [facility] 03/10/2024 13:54:57 <0.6 <20 (IU/mL) Final Extractable nuclear Ab [Presence] in Serum 03/10/2024 13:54:57 Negative Negative Final Nuclear IgG Ab [Ratio] in Serum by Immunoassay 03/10/2024 13:54:57 0.2 <0.7 (Ratio) Final Screening is based on detect ion of the following antibodies: dsDNA, U1-[employer]EL[employer] (RNP70, A, C), SS-A/Ro, SS-B / La, Deepa-1, Scl-70, Centromere B proteins and Sm proteins. In conjunction with clinical findings, this can aid in the diagnosis of systemic lupus erythematosous (SLE), mixed connective tissue disease (MCTD), Sjogren's syndrome, scleroderma and polymyositis/dermatomyositis.
However, a negative result does not rule out systemic rheumatic or other autoimmune disease. If clinically suspected, further evaluation and testing may be necessary. Please consult with Rheumatology Department.
Methodology: Fluorescent Enzyme Immunoassay. Performing Location LABORATORY [address] [facility] [address]
--- OUTSIDE RECORDS SUMMARY | 2024-06-26 22:29 | External Medical Summary | Summary of Care ---
Author Name Unknown Organization [facility] Address [address] [place] [address] Phone [phone] Care Team Providers Care Movie Shot Cameraman Name Role Phone Daysi Pham MD Primary Care Provide r Reason for Visit * Reason Comments Outpatient Testing Encounter Details Date Type Department Care Team (Late st Contact Info) Description 03/10/2024 1:50 PM EST Laboratory Laboratory [address] [place] [phone] [place] [address] Persistent proteinuria Allergies Active Allergy Reactions Criticality [...] A1c goal of less than 8.0% ([facility]) Use once a day [...] Capsule Take by mouth. Activ e Ipratropium [place] 0.03 % Nasal Solution (Atrovent)Indicati ons:Rhinorrhea ADMINISTER 2 SPRAYS INTO EACH NOSTRIL 4 TIMES A DAY NEEDED FOR RHINITIS. FOR RUNNY NOSE 90 mL 1 03/15/20 23 Active Ipratropium-[place] rol 20-100 MCG/ACT Inhalation Aerosol Solution (Combivent Respimat)Indicatio ns:COPD, group B, by GOLD 2017 classification ([facility]) INHALE 1 PUFF BY MOUTH IN THE MORNING, 1 PUFF AT NOON, 1 PUFF IN THE EVENING, AND 1 PUFF BEFORE BEDTIME 12 g 1 4 5:02 PM EST 04/16/20 23 024 Active OneTouch Verio In Vitro Strip (Glucose Blood)Indications: Type 2 diabetes mellitus with hemoglobin A1c goal of less than 8.0% ([facility]) USE TO TEST BLOOD [...] 10/18/19 24 025 Active OneTouch Delica Plus [id number] ns:Type 2 diabetes mellitus with hemoglobin A1c goal of less than 8.0% ([facility]) USE TO TEST BLOOD [...] A1c goal of less than 8.0% ([facility]) Take 1 Tablet by [...] mRNA, LNP-s, No Pre serve, 2-Dose Series ([employer]) 03/25/2021,08/27/2020,08/06/2020 COVID-19, MRNA-LNP, PF, 30 M CG/0.3 [...] 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 [place] [address] [facility] 132 [facility] [place] [address] 06/20/2024 2:00 PM EST Office Visit Cardiology [address] [place] [address] Enrico De La Torre PA-C [address] [place] [address] 06/26/2024 1:40 PM EST Office Visit Family Medicine [address] [place] [phone] Christin Welch PA-C [address] [place] [address] [place] [address] 08/29/2024 2:30 PM EDT Office Visit Nephrology [address] [place] [address] Lissa Owens PA-C [address] [place] [address] 08/29/2024 3:00 PM EDT Nurse Only Ancillary [address] [place] [address] Nurse Zabrina [address] [place] [address] 12/26/2024 2:30 PM EDT Office Visit Cardiology, [facility] 132 [facility] [place] [address] Ashli Alcala CRNP 400 [facility] [place] [phone] Pending Results Name Type Priority Associated Diagnoses [...] 03/10/2019 01/13/2019, 03/03 CKD PHOS USE SMARTSET 20921 12/28/201912/02, 12/25/2018, 12/24/2018, Additional history exists Cologuard 11/04/2020 11/04/2017 Mammogram 11/19/2023 11/18/2022, 07/0 08/2022, 11/04/2022, Additional history exists COVID-19 Vaccine ( season) 2024 06/14/2023, 04/28/2022, 03/25/2021, Additional history exists Diabetic Eye Exam 02/23/2024 02/22/2023, , 07/02/2021, Additional history exists CKD HGB USE SMARTSET 57305 05/12/202405/12, 05/12/2023, 09/24/2021, Additional history exists HbA1c [...] Proteinuria documented in this encounter Care Teams Movie Shot Cameraman Relationship Specialty Start Date End Date Daysi Pham MD [address] [place] [address] [place] [phone] PCP - General Family Medicine 07/01/17 documented as of this encounter
--- OUTSIDE RECORDS SUMMARY | 2024-06-26 22:29 | External Medical Summary ---
Author Name Unknown Address Unknown Organization K01:[facility] - [address] [facility] [address] Laboratory Report Ordering Provider Test Date Status RAPHAEL MOON 03/10/2024 13:54:57 Final Observation Date Value Abnormality Reference (Units ) Status C4 03/10/2024 13:54:57 35 10-40 (mg/ dL) Final Performing Location [facility] - [address] [facility] [address]
--- OUTSIDE RECORDS SUMMARY | 2024-06-26 22:29 | External Medical Summary | Summary of Care ---
Author Name Unknown Organization [facility] Address [address] [place] [address] Phone [phone] Care Team Providers Care Customer Associate Name Role Phone Daysi Pham MD Primary Care Provide r Reason for Visit * Reason Comments Outpatient Testing Encounter Details Date Type Department Care Team (Late st Contact Info) Description 03/10/2024 1:50 PM EST Laboratory Laboratory [address] [place] [phone] [place] [address] Persistent proteinuria Allergies Active Allergy Reactions Criticality Noted Date Comments Amoxicillin Rash 11/19/2011 Levofloxacin Other (Please comment) 11/13/2013 Weakness, lightheadedness, nausea Niacin Er (Antihyperlipidemic) 01/30/2010 Burned throat. Prednisone 09/03/2012 Blood pressure went up. Bupropion Hcl 01/30/2010 documented as of this encounter (statuses as of 03/10/2024) Medications VITAMIN B COMPLEX PO CAPSIndications:evans pplementation [...] hemoglobin A1c goal of less than 8.0% ([facility]) Use once a day Dx: E11.9 [...] Capsule Take by mouth. Activ e Ipratropium [place] 0.03 % Nasal Solution (Atrovent)Indicati ons:Rhinorrhea ADMINISTER 2 SPRAYS INTO EACH NOSTRIL 4 TIMES A DAY NEEDED FOR RHINITIS. FOR RUNNY NOSE 90 mL 1 03/15/20 23 Active Ipratropium-[place] rol 20-100 MCG/ACT Inhalation Aerosol Solution (Combivent Respimat)Indicatio ns:COPD, group B, by GOLD 2017 classification ([facility]) INHALE 1 PUFF BY MOUTH IN THE MORNING, 1 PUFF AT NOON, 1 PUFF IN THE EVENING, AND 1 PUFF BEFORE BEDTIME 12 g 1 4 5:02 PM EST 04/16/20 23 024 Active OneTouch Verio In Vitro Strip (Glucose Blood)Indications: Type 2 diabetes mellitus with hemoglobin A1c goal of less than 8.0% ([facility]) USE TO TEST BLOOD SUGAR ONCE [...] 10/18/19 24 025 Active OneTouch Delica Plus [id number] ns:Type 2 diabetes mellitus with hemoglobin A1c goal of less than 8.0% ([facility]) USE TO TEST BLOOD SUGAR ONCE A DAY DIRECTED 100 Each 1 10/30/19 24 025 Active Amitriptyline HCl 10 MG Oral Tablet (Elavil)Indication s:Insomnia, unspecified type take one tablet by mouth at bedtime 100 Tablet 1 4 8:50 AM EDT 11/01/19 24 Active Empagliflozin 10 MG Oral Tablet (Jardiance)Indicat ions:Type 2 diabetes mellitus with hemoglobin A1c goal of less than 8.0% ([facility]) Take 1 Tablet by mouth in [...] as of this encounter (statuses as of 03/10/2024) Active Problems Problem Noted Date Diagnosed Date [...] as of this encounter (statuses as of 03/10/2024) Resolved Problems Problem Noted Date Diagnosed Date [...] as of this encounter (statuses as of 03/10/2024) Immunizations Name Administration Dates Next Due COVID-19 mRNA, LNP-s, No Pre serve, 2-Dose Series ([facility]) 03/25/2021,08/27/2020,08/06/2020 COVID-19, MRNA-LNP, PF, 30 M CG/0.3 [...] 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 [place] [address] 06/20/2024 2:00 PM EST Office Visit Cardiology [address] [place] [address] Enrico De La Torre PA-C [address] [place] [address] 06/26/2024 1:40 PM EST Office Visit Family Medicine [address] [place] [phone] Christin Welch PA-C [address] [place] [address] [place] [address] 08/29/2024 3:00 PM EDT Nurse Only Ancillary [address] [place] [address] Nurse Zabrina [address] [place] [address] 12/26/2024 2:30 PM EDT Office Visit Cardiology, [facility] 132 [facility] [place] [address] Ashli Alcala CRNP 400 [facility] [place] [phone] Pending Results Name Type Priority Associated Diagnoses [...] 03/10/2019 01/13/2019, 03/03 CKD PHOS USE SMARTSET 57839 12/28/201912/02, 12/25/2018, 12/24/2018, Additional history exists Cologuard 11/04/2020 11/04/2017 Mammogram 11/19/2023 11/18/2022, 07/08/2022, 11/04/2022, Additional history exists COVID-19 Vaccine ( season) 2024 06/14/2023, 04/28/2022, 03/25/2021, Additional history exists Diabetic Eye Exam 02/23/2024 02/22/2023, , 07/02/2021, Additional history exists CKD HGB USE SMARTSET 59188 05/12/202405/12, 05/12/2023, 09/24/2021, Additional history exists HbA1c [...] Proteinuria documented in this encounter Care Teams Customer Associate Relationship Specialty Start Date End Date Daysi Pham MD [address] [place] [address] [place] [address] PCP - General Family Medicine 07/01/17 documented as of this encounter
--- OUTSIDE RECORDS SUMMARY | 2024-06-26 22:29 | External Medical Summary ---
Author Name Unknown Address Unknown Organization K01:LABORATORY [facility] [place] - [address] [facility] [address] Laboratory Report Ordering Provider Test Date Status GRANTSALIMATONY 03/10/2024 13:54:57 Final Normal: <150 mg/ g creatinine
High: 150-500 mg/g creatinine
Very High: >500 mg/g creatinine
Nephrotic: >3000 mg/g creatinine Observation Date Value Abnormality Reference (Units ) Status Protein/Creatinine [Ratio] in Urine 03/10/2024 13:54:57 1585 Above high normal <150 (mg/g ) Final Protein, Urine 03/10/2024 13:54:57 195 (mg/dL) Final Creatinine, Urine 03/10/2024 13:54:57 123 (mg/dL) Final Performing Location LABORATORY [facility] [place] - [address] [facility] [address]
--- OUTSIDE RECORDS SUMMARY | 2024-06-26 22:29 | External Medical Summary ---
Author Name Unknown Address Unknown Organization K01:LABORATORY [facility] [place] - [address] [facility] [address] Laboratory Report Ordering Provider Test Date Status RAPHAEL MOON 03/10/2024 13:54:57 Final Observation Date Value Abnormality Reference (Units ) Status BUN 03/10/2024 13:54:57 21 Above high normal 6-20 (mg/dL) Final Creatinine 03/10/2024 13:54:57 1.2 Above high normal 0.5-1.0 (mg/dL) Final Glomerular filtration rate/1.73 sq M.predicted [Volume Rate/Area] in Serum, Plasma or Blood by Creatinine-based formula (CKD-EPI) 03/10/2024 13:54:57 47 Below low normal >=60 (mL/min) Final eGFR is calculated based on the CKD-EPI 2020 equation. Sodium 03/10/2024 13:54:57 138 135-146 (m mol/L) Final Potassium 03/10/2024 13:54:57 5.0 3.5-5.1 (m mol/L) Final Cl 03/10/2024 13:54:57 98 98-107 (mm ol/L) Final CO2 03/10/2024 13:54:57 28 22-32 (mmo l/L) Final Anion gap 03/10/2024 13:54:57 12 7-15 (mmol /L) Final Glucose 03/10/2024 13:54:57 170 Above high normal 70 -120 (mg/dL) Final Albumin 03/10/2024 13:54:57 4.0 3.8-5.0 (g /dL) Final AST (Aspartate aminotransferase) 03/10/2024 13:54:57 20 10-35 (U/L) Fin al Alk Phos 03/10/2024 13:54:57 78 35-130 (U/ L) Final Bilirubin, Total 03/10/2024 13:54:57 0.3 <=1 .2 (mg/dL) Final Calcium 03/10/2024 13:54:57 9.3 8.4-10.2 ( mg/dL) Final Protein 03/10/2024 13:54:57 6.2 6.0-8.3 (g /dL) Final ALT (Alanine aminotransferase) 03/10/2024 13:54:57 16 10-35 (U/L) Zelalem zimmer Performing Location LAB[facility]ATORY [facility] [place] - [facility] [address] [facility] [address]
--- OUTSIDE RECORDS SUMMARY | 2024-06-26 22:29 | External Medical Summary ---
Author Name Unknown Address Unknown Organization K01:[facility] [place] [address] [facility] [address] Laboratory Report Ordering Provider Test Date Status RAPHAEL MOON 03/10/2024 13:54:57 Final Observation Date Value Abnormality Reference (Units ) Status Hep B surface Ag 03/10/2024 13:54:57 Negative Neg ative Final Performing Location LABORATORY [facility] - [address] [facility] [address]
--- OUTSIDE RECORDS SUMMARY | 2024-06-26 22:29 | External Medical Summary ---
Author Name Unknown Address Unknown Organization K01:[facility] [place] [facility] [address] [facility] [address] Laboratory Report Ordering Provider Test Date Status RAPHAEL MOON 03/10/2024 13:54:57 Final Observation Date Value Abnormality Reference (Units ) Status [place] light chains, Free, Serum 03/10/2024 13:54:57 32.57 Above high normal 3.30-19.40 (mg/L) Final L[place] light chains, free, Serum 03/10/2024 13:54:57 17.86 5.71-26.30 (mg/L) Final KAPPA LAMBDA [facility] RATIO 03/10/2024 13:54:57 1.82 Above high normal 0.26-1.65 Final Performing Location [facility] [place] [facility] [address] [facility] [address]
--- OUTSIDE RECORDS SUMMARY | 2024-06-26 22:30 | External Medical Summary | Summary of Care ---
Author Name Unknown Organization [facility] Address [address] [place] [address] Phone [phone] Care Team Providers Care Grain Wafer Machine Operator Name Role Phone Daysi Pham MD Primary Care Provide r Encounter Details Date Type Department Care Team (Late st Contact Info) Description 02/06/2024 Result Scan Unspecified Department <No scans attached> Allergies Active Allergy Reactions Criticality Noted Date Comments Amoxicillin Rash 11/19/2011 Levofloxacin Other (Please comment) 11/13/2013 Weakness, lightheadedness, nausea Niacin Er 01/30/2010 Burned throat. Prednisone 09/03/2012 Blood pressure went up. Bupropion Hcl 01/30/2010 documented as of this encounter (statuses as of 02/21/2024) Medications Medication Sig Dispensed Refills Start Date [...] daily . Active nitroglycerin (NITROSTAT) 0.4 MG SUBLIndications:Smocking Machine Operator lev coronary artery disease Place 1 Tab under the tongue as needed for Pain, Chest. May repeat 3 times. If chest pain continues, call 911. 25 Tab 1 01/31/2019 Active Wheat Dextrin (BENEFIBER) powderIndications:Pandoodle Take by mouth . 1 teaspoon daily [...] less than 8.0% ([facility]) Use once a day Dx: [...] 90 Tablet 3 02/26/2023 4 Active Ipratropium [place] 0.03 % Nasal Solution (Atrovent)Indication s:Rhinorrhea ADMINISTER 2 SPRAYS INTO EACH NOSTRIL 4 TIMES A DAY NEEDED FOR RHINITIS. FOR RUNNY NOSE 90 mL 1 03/15/2023 Active Ipratropium-Albutero l 20-100 MCG/ACT Inhalation Aerosol Solution (Combivent Respimat)Indications :COPD, group B, by GOLD 2017 classification ([facility]) INHALE 1 PUFF BY MOUTH IN THE MORNING, 1 PUFF AT NOON, 1 PUFF IN THE EVENING, AND 1 PUFF BEFORE BEDTIME 12 g 1 04/16/2023 4 Active OneTouch Verio In Vitro Strip [...] 3 10/18/2023 5 Active OneTouch Delica Plus [id number] :Type 2 diabetes mellitus with hemoglobin A1c [...] the morning. 90 Tablet 3 11/02/2023 Active Apixaban 5 MG Oral Tablet (Eliquis)Indications :Cerebrovascular disease, arteriosclerotic, post-stroke,Paroxysm al atrial fibrillation (HCC) TAKE ONE TABLET BY MOUTH TWICE A DAY 200 Tablet 1 12/08/2023 Active Pregabalin 25 MG Oral Capsule (Lyrica)Indications: Type 2 diabetes, controlled, with neuropathy (HCC) TAKE ONE CAPSULE BY MOUTH EVERY MORNING AND TAKE ONE CAPSULE BEFORE BEDTIME 60 Capsule 2 12/25/2023 Active Ipratropium-Albutero l 0.5-2.5 (3) MG/3ML Inhalation Solution (Duoneb) Inhale 3 mL via nebulizer in the morning and 3 mL at noon and 3 mL in the evening and 3 mL before bedtime. 90 mL 3 02/01/2024 Active documented as of this encounter (statuses as of 02/21/2024) Active Problems Problem Noted Date Diagnosed Date [...] as of this encounter (statuses as of 02/21/2024) Resolved Problems Problem Noted Date Diagnosed Date Resolved Date Claudication in peripheral vascular disease 05/05/2019 06/16/2019 Erythrocytosis 08/24/2018 02/17/2024 Overview: duplicate COPD, moderate 10/17/2015 03/17/2019 Overview: Per [...] as of this encounter (statuses as of 02/21/2024) Immunizations Name Administration Dates Next Due COVID-19 mRNA, LNP-s, No Pre serve, 2-Dose Series ([employer]) 03/25/2021,08/27/2020,08/06/2020 COVID-19, MRNA-LNP, 23-24, P F, 30 MCG/0.3 mL, 12 YRS AND ABOVE, IM ([employer]ron-Comirnat) 06/14/2023 Covid-19, Mrna, Lnp-s, Pf, B ivalent, [...] 03/10/2024 2:30 PM EST Office Visit Nephrology [address] [place] [address] Lissa Owens PA-C [address] [place] [address] 06/20/2024 2:00 PM EST Office Visit Cardiology [address] [place] [address] Enrico De La Torre PA-C [address] [place] [address] 06/26/2024 1:40 PM EST Office Visit Family Medicine [address] [place] [phone] Christin Welch PA-C [address] [place] [address] [place] [address] 08/29/2024 3:00 PM EDT Nurse Only Ancillary [address] [place] [address] [place], Nurse Annual Wellness [address] [place] [address] [place] [address] 12/26/2024 2:30 PM EDT Office Visit Cardiology, [facility] [address] [place] [address] Ashli Alcala CRNP [address] [place] [phone] Health Maintenance Due Date Last Done Comments Alpha-1 Antitrypsin 1967 Sigmoidoscopy 1994 Fecal Occult Blood Test 11/06/2006 11/06/2005 DTap/Tdap Vaccines (2 - Td or Tdap) 10/25/2017 10/26/2007 Colonoscopy 01/24/2019 01/24/2018, 09/01, 08/11/2007, Additional history exists Colorectal Cancer Screening 01/24/2019 Zoster Vaccines (3 of 3) 03/10/2019 01/13/2019, 03/03 CKD PHOS USE SMARTSET 63099 12/28/201912/02, 12/25/2018, 12/24/2018, Additional history exists Cologuard 11/04/2020 11/04/2017 Mammogram 11/19/2023 11/18/2022, 0708/2022, 11/04/2022, Additional history exists COVID-19 Vaccine ( season) 2024 06/14/2023, 04/28/2022, 03/25/2021, Additional history exists Diabetic Eye Exam 02/23/2024 02/22/2023, , 07/02/2021, Additional history exists CKD HGB USE SMARTSET 69205 05/12/202405/12, 05/12/2023, 09/24/2021, Additional history exists HbA1c [...] Procedure Name Priority Date/Time Associated Diagnosis Comments EKG SCANNED RESULT 02/06/2024 documented in this encounter Results * EKG SCANNED RESULT (02/06/2024) 02/06/2024 No Physician Data Unknown EKG documented in this encounter Care Teams Grain Wafer Machine Operator Relationship Specialty Start Date End Date Daysi Pham MD [address] [place] [address] [place] [address] PCP - General Family Medicine 07/01/17 documented as of this encounter
--- OUTSIDE RECORDS SUMMARY | 2024-06-26 22:30 | External Medical Summary | Summary of Care ---
Author Name Unknown Organization [facility] Address [address] [place] [address] Phone [phone] Care Team Providers Care Associate Store Leader Name Role Phone Daysi Pham MD Primary Care Provide r Encounter Details Date Type Department Care Team (Late st Contact Info) Description 02/18/2024 Orders Only PATIENT PORTAL DO NOT DELETE THIS DEPT USED BY [place] [id number] Allergies Active Allergy Reactions Criticality Noted Date Comments Amoxicillin Rash 11/19/2011 Levofloxacin Other (Please comment) 11/13/2013 Weakness, lightheadedness, nausea Niacin Er 01/30/2010 Burned throat. Prednisone 09/03/2012 Blood pressure went up. Bupropion Hcl 01/30/2010 documented as of this encounter (statuses as of 02/18/2024) Medications Medication Sig Dispensed Refills Start Date [...] daily . Active nitroglycerin (NITROSTAT) 0.4 MG SUBLIndications:Mold Stamper lev coronary artery disease Place 1 Tab under the tongue as needed for Pain, Chest. May repeat 3 times. If chest pain continues, call 911. 25 Tab 1 01/31/2019 Active Wheat Dextrin (BENEFIBER) powderIndications:[employer] Take by mouth . 1 teaspoon daily [...] MORNING 90 Tablet 3 02/26/2023 Active Ipratropium [place] 0.03 % Nasal Solution (Atrovent)Indication s:Rhinorrhea ADMINISTER [...] 3 10/18/2023 5 Active OneTouch Delica Plus [id number] :Type 2 diabetes mellitus with hemoglobin A1c [...] less than 8.0% ([facility]) Take 1 Tablet by mouth in [...] before bedtime. 90 mL 3 02/01/2024 Active Esomeprazole Magnesium 40 MG Oral Capsule Delayed ReleaseIndications:G astroesophageal reflux disease without esophagitis Take 1 Capsule by mouth 2 times a day with morning and evening meals. 200 Capsule 1 02/08/2024 Active documented as of this encounter (statuses as of 02/18/2024) Active Problems Problem Noted Date Diagnosed Date [...] as of this encounter (statuses as of 02/18/2024) Resolved Problems Problem Noted Date Diagnosed Date [...] as of this encounter (statuses as of 02/18/2024) Immunizations Name Administration Dates Next Due COVID-19 mRNA, LNP-s, No Pre serve, 2-Dose Series ([employer]) 03/25/2021,08/27/2020,08/06/2020 COVID-19, MRNA-LNP, 23-24, P F, 30 MCG/0.3 mL, 12 YRS AND ABOVE, IM ([employer] 06/14/2023 Covid-19, Mrna, Lnp-s, Pf, B ivalent, 30 Mcg, IM, 12 yrs and above (DNA13) 04/28/2022 H1N1 2009 Influenza, IM 05/15/2009 Pneumococcal [...] Care Team (Late st Contact Info) Description 02/18/2024 11:00 AM EDT Office Visit Cardiology, [facility] [address] [place] [address] Regine Barcenas, DO [address] [facility] [place] [phone] 03/10/2024 2:30 PM EST Office Visit Nephrology [address] [place] [address] Lissa Owens PA-C [address] [facility] [place] [address] 06/20/2024 2:00 PM EST Office Visit Cardiology [address] [place] [address] Enrico De La Torre PA-C [address] [place] [address] 06/26/2024 1:40 PM EST Office Visit Family Medicine [address] [place] [phone] Christin Welch PA-C [address] [place] [address] [place] [address] 08/29/2024 3:00 PM EDT Nurse Only Ancillary [address] [place] [address] [place], Nurse Annual [address] [place] [address] Health Maintenance Due Date Last Done Comments Alpha-1 Antitrypsin 1967 Sigmoidoscopy 1994 Fecal Occult Blood Test 11/06/2006 11/06/2005 DTap/Tdap Vaccines (2 - Td or Tdap) 10/25/2017 10/26/2007 Colonoscopy 01/24/2019 01/24/2018, 09/01, 08/11/2007, Additional history exists Colorectal Cancer Screening 01/24/2019 Zoster Vaccines (3 of 3) 03/10/2019 01/13/2019, 03/03 CKD PHOS USE SMARTSET 35465 12/28/201912/02, 12/25/2018, 12/24/2018, Additional history exists Cologuard 11/04/2020 11/04/2017 Mammogram 11/19/2023 11/18/2022, 08/2022, 11/04/2022, Additional history exists COVID-19 Vaccine ( season) 2024 06/14/2023, 04/28/2022, 03/25/2021, Additional history exists Influenza Vaccine (FLU shot) (#1) 2024 01/20/2022, 01/20/2022, 02/06/2021, Additional history exists Diabetic Eye Exam 02/23/2024 02/22/2023, , 07/02/2021, Additional history exists CKD HGB USE SMARTSET 74046 05/12/202405/12, 05/12/2023, 09/24/2021, Additional history exists HbA1c [...] filedocumented as of this encounter Care Teams Associate Store Leader Relationship Specialty Start Date End Date Daysi Pham MD [address] [place] [address] [place] [phone] PCP - General Family Medicine 07/01/17 documented as of this encounter
--- OUTSIDE RECORDS SUMMARY | 2024-06-26 22:30 | External Medical Summary | Summary of Care ---
Author Name Unknown Organization [facility] Address [address] [place] [address] Phone [phone] Care Team Providers Care Microsoft Exchange Administrator Name Role Phone Daysi Pham MD Primary Care Provide r Reason for Visit * Reason Onset Date Comments Follow Up Rm 13 Medication Administration 02/18/2024 Flu an d/or Pneumo Inj Encounter Details Date Type Department Care Team (Late st Contact Info) Description 02/18/2024 11:00 AM EDT Office Visit Card[facility] [address] [place] [address] Regine Barcenas, DO [address] [facility] [place] [address] Need for prophylactic vaccination and inoculation against influenza*; Tachy-maribel syndrome (HCC); Coronary artery disease involving napaimute coronary artery of napaimute heart without angina pectoris; Ischemic cardiomyopathy; Permanent atrial fibrillation (HCC); HTN, goal below 150/90; Hyperlipidemia with target LDL less than 70 Allergies Active Allergy Reactions Criticality Noted Date Comments Amoxicillin Rash 11/19/2011 Levofloxacin Other (Please comment) 11/13/2013 Weakness, lightheadedness, nausea Niacin Er (Antihyperlipidemic) 01/30/2010 Burned throat. Prednisone 09/03/2012 Blood pressure went up. Bupropion Hcl 01/30/2010 documented as of this encounter (statuses as of 03/03/2024) Medications Medication Sig Dispensed Refills Start Date End Date Status VITAMIN B COMPLEX PO CAPSIndications:evans pplementation Take by mouth 1 Capsule daily . Active CO Q 10 100 MG PO CAPSIndications:le g pain Take by mouth 100 mg daily . Active ASPIRIN 81 MG PO TABSIndications:he Rapt Take 1 Tablet by mouth in the morning. Active oxygen GAS Use 2 L/min(Oxygen) as directed at bedtime. Active Respiratory Therapy Supplies (NEBULIZER) DEVIIndications:CO PD, moderate (HCC) Use as directed. Duonebs, 3 ml's every 6 hours as needed 1 Device 05/21/19 17 Active Multiple Vitamins-Minerals (MULTIVITAMIN WOMEN) TABSIndications:Circuport Take by mouth 1 Tablet daily . [...] A1c goal of less than 8.0% ([facility]) Use once a day Dx: [...] UT) Oral Capsule Take by mouth. Active Ipratropium Vivian 0.03 % Nasal Solution (Atrovent)Indicati ons:Rhinorrhea ADMINISTER 2 SPRAYS INTO EACH NOSTRIL 4 TIMES A DAY NEEDED FOR RHINITIS. FOR RUNNY NOSE 90 mL 1 03/15/20 23 Active Ipratropium-Albute rol 20-100 MCG/ACT Inhalation Aerosol Solution (Combivent Respimat)Indicatio ns:COPD, group B, by GOLD 2017 classification ([facility]) INHALE 1 PUFF BY MOUTH IN THE MORNING, 1 PUFF AT NOON, 1 PUFF IN THE EVENING, AND 1 PUFF BEFORE BEDTIME 12 g 1 04/16/20 23 024 Active OneTouch Verio In Vitro Strip (Glucose Blood)Indications: Type 2 diabetes mellitus with hemoglobin A1c goal of less than 8.0% ([facility]) USE TO TEST BLOOD SUGAR ONCE A DAY 100 Strip 3 08/09/19 24 Active Lisinopril 5 MG Oral Tablet (Prinivil)Indicati ons:HTN, goal below 140/90 TAKE ONE TABLET BY MOUTH EVERY DAY 90 Tablet 3 08/12/19 24 025 Active Atorvastatin Calcium 80 MG Oral Tablet (Lipitor)Indicatio ns:Dyslipidemia, goal LDL below 100 TAKE ONE TABLET BY MOUTH EVERYday 100 Tablet 3 10/18/19 24 025 Active OneTouch Delica Plus [id number] ns:Type 2 diabetes mellitus with hemoglobin A1c goal of less than 8.0% ([facility]) USE TO TEST BLOOD SUGAR ONCE A DAY DIRECTED 100 Each 1 10/30/19 24 025 Active Amitriptyline HCl 10 MG Oral Tablet (Elavil)Indication s:Insomnia, unspecified type take one tablet by mouth at bedtime 100 Tablet 1 11/01/19 24 Active Empagliflozin 10 MG Oral Tablet (Jardiance)Indicat ions:Type 2 diabetes mellitus with hemoglobin A1c goal of less than 8.0% ([facility]) Take 1 Tablet by mouth in the morning. 90 Tablet 3 11/02/19 24 Active Apixaban 5 MG Oral Tablet (Eliquis)Indicatio ns:Cerebrovascular disease, arteriosclerotic, post-stroke,Paroxy smal atrial fibrillation (HCC) TAKE ONE TABLET BY MOUTH TWICE A DAY 200 Tablet 1 12/08/19 24 Active Pregabalin 25 MG Oral Capsule (Lyrica)Indication s:Type 2 diabetes, controlled, with neuropathy (HCC) TAKE ONE CAPSULE BY MOUTH EVERY MORNING AND TAKE ONE CAPSULE BEFORE BEDTIME 60 Capsule 2 12/25/19 24 Active Ipratropium-Albute rol 0.5-2.5 (3) [...] morning and evening meals. 200 Capsule 1 02/08/20 24 Active Isosorbide Mononitrate ER 30 MG Oral Tablet Extended Release 24 Hour (Imdur)Indications :HTN, goal below 140/90 TAKE ONE TABLET BY MOUTH EVERY MORNING 90 Tablet 3 02/27/20 23 024 Discontinued(Re fill) Nystatin [id number] UNIT/ML Mouth/Throat SuspensionIndicati ons:Thrush Swish and swallow 5 mL in the morning and 5 mL at noon and 5 mL in the evening and 5 mL before bedtime. For thrush.. 240 mL 1 12/06/19 24 024 Atenolol 50 MG Oral Tablet (Tenormin)Indicati ons:Chronic coronary artery disease Take 1 Tablet by mouth in the morning. 12/06/19 24 024 Discontinued(Tn dication List Clean Up) Metoprolol Tartrate 25 MG Oral Tablet (Lopressor) Take 1 Tablet by mouth in the morning and 1 Tablet before bedtime. 024 Discontinued dilTIAZem HCl ER Coated Beads 120 MG Oral Capsule Extended Release 24 Hour (Cardizem CD) Take 1 Capsule by mouth in the morning. 3 hours after am dose of metoprolol. 024 Discontinued(Re fill) documented as of this encounter (statuses as of 03/03/2024) Active Problems Problem Noted Date Diagnosed Date [...] as of this encounter (statuses as of 03/03/2024) Resolved Problems Problem Noted Date Diagnosed Date [...] as of this encounter (statuses as of 03/03/2024) Immunizations Name Administration Dates Next Due COVID-19 mRNA, LNP-s, No Pre serve, 2-Dose Series ([employer]) 03/25/2021,08/27/2020,08/06/2020 COVID-19, MRNA-LNP, PF, 30 M CG/0.3 mL, 12 YRS AND ABOVE, IM ([facility]) 06/14/2023 Covid-19, Mrna, Lnp-s, Pf, B [...] Sign Reading Time Taken Comments Blood Pressure 142/60 02/18/2024 10:55 AM EDT Pulse 68 02/18/2024 10:55 AM EDT Temperature - - Respiratory Rate 16 02/18/2024 10:55 AM EDT Oxygen Saturation - - Inhaled Oxygen Concentration - - Weight 102.5 kg (226 lb) 02/18/2024 10:55 AM EDT Height 162.6 cm (5' 4") 02/18/2024 10:55 AM EDT Body Mass Index 38.79 02/18/2024 10:55 AM EDT documented in this encounter Patient Instructions * Patient Instructions* Regine Barcenas DO - 02/18/2024 11:56 AM EDT Take metoprolol 9am and 9pm Take diltiazem at 3pm and see if that helps with your dizziness Keep the dressing and dry until Tuesday 02/20 and then you can remove the dressing and just let water run over the glue do not help the glue off it will come off over the next few weeks. documented in this encounter Progress Notes * Regine Barcenas DO - 02/18/2024 11:11 AM EDT Subjective Pastora Yee is a 73 year old female. Chief Complaint Patient presents with Follow Up Rm 13 Medication Administration Flu and/or Pneumo Inj Pt returns to EP due to TBS Cardiac Problems: TBS s/p ppm done as an inpatient 02/2024 CAD s/p MAGNETIC PROSPECTING SUPERVISOR of RCA, Cx 30%, rest of vessels with LI by cath 01/2006 ICM s/p EP 40% ABIODUN s/p b/l CEA pAF possibly becoming more permanent on diltiazem and toprol and eliquis [id number] 7 (age, female, CAD, HTN, PAD, DM) HTn HLD PAD with b/l LE claudication, Subclavian artery, SMA and right renal artery occlusion COPD on nocturnal hypoxemia DM Pulmonary nodules HLD HPI: Pt had a pacemaker implanted a few weeks ago as an inpatient due to TBS Sotalol was tried but QTc was too long She was discharged on diltiazem and toprol She still has generalized fatigue Has some lightheadedness and dizziness Occasional palpitations PMH: Patient Active Problem List Diagnosis LACUNAR STROKE > PERIPH FIELD DEFECT ADVANCE DIRECTIVE INFORMATION Chronic coronary artery disease Diverticulosis of colon Lung nodule CEREBROVASCULAR DZ, POST-STROKE Osteoarthrosis HTN, goal below 140/90 Dyslipidemia, goal LDL below 100 Bilateral carotid artery stenosis Atherosclerotic peripheral vascular disease with intermittent claudication ([facility]) Fatty liver Persistent insomnia Subclavian artery stenosis, left ([facility]) IBS (irritable bowel syndrome) Postmenopausal atrophic vaginitis Chronic pain of both ankles Psoriasis Secondary polycythemia Aphasia as late effect of stroke Paroxysmal atrial fibrillation ([facility]) COPD, group B, by GOLD 2017 classification ([facility]) Gastroesophageal reflux disease without esophagitis Type 2 diabetes mellitus with hemoglobin A1c goal of less than 8.0% ([facility]) Type 2 diabetes, controlled, with neuropathy ([facility]) Anxiety state Mesenteric artery stenosis ([facility]) Chronic kidney disease, stage 3a ([facility]) Current Outpatient Medications Medication Sig Dispense Refill [...] (5000 UT) Oral Capsule Take by mouth. Isosorbide Mononitrate ER 30 MG Oral Tablet Extended Release 24 Hour (Imdur) TAKE ONE TABLET BY MOUTH EVERY MORNING 90 Tablet 3 Ipratropium Vivian 0.03 % Nasal Solution (Atrovent) ADMINISTER 2 SPRAYS INTO EACH NOSTRIL 4 TIMES A DAY NEEDED FOR RHINITIS. FOR RUNNY NOSE 90 mL 1 Ipratropium-Albuterol 20-100 MCG/ACT Inhalation Aerosol Solution (Combivent Respimat) INHALE 1 PUFFBY MOUTH IN THE MORNING, 1 PUFF AT NOON, 1 PUFF IN THE EVENING, AND 1 PUFF BEFORE BEDTIME 12 g 1 Lisinopril 5 MG Oral Tablet (Prinivil) TAKE ONE TABLET BY MOUTH EVERY DAY 90 Tablet 3 Atorvastatin Calcium 80 MG Oral Tablet (Lipitor) TAKE ONE TABLET BY MOUTH EVERYday 100 Tablet 3 Amitriptyline HCl 10 MG Oral Tablet (Elavil) take one tablet by mouth at bedtime 100 Tablet 1 Empagliflozin 10 MG Oral Tablet (Jardiance) Take 1 Tablet by mouth in the morning. 90 Tablet 3 Nystatin 268419 UNIT/ML Mouth/Throat Suspension Swish and swallow 5 mL in the morning and 5 mL at noon and 5 mL in the evening and 5 mL before bedtime. For thrush.. 240 mL 1 Apixaban 5 MG Oral Tablet [...] morning and evening meals. 200 Capsule 1 Metoprolol Tartrate 25 MG Oral Tablet (Lopressor) Take 1 Tablet by mouth in the morning and 1 Tablet before bedtime. dilTIAZem HCl ER Coated Beads 120 MG Oral Capsule Extended Release 24 Hour (Cardizem CD) Take 1 Capsule by mouth in the morning. 3 hours after am dose of metoprolol. Respiratory Therapy Supplies (NEBULIZER) ZAIRA Use as directed. Duonebs, 3 ml's every 6 hours as needed 1 Device 0 [facility] ServicesTouch Verio w/Device Kit Use once a day Dx: E11.9 1 Kit 0 OneTouch Verio In Vitro Strip (Glucose Blood) USE TO TEST BLOOD SUGAR ONCE A DAY 100 Strip 3 OneTouch Delica Plus [id number] USE TO TEST BLOOD SUGAR ONCE A DAY DIRECTED 100 Each 1 No current facility-administered medications for this [...] (RECTUM) 01/24/2018 diverticulosis, poor prep, repeat 1 yr/[facility] CT CHEST W WO CONTRAST [...] 10/15/2016 scattered fibroglandular densities, category 1 normal CA XCAPSL CTRC RMVL INSJ IO LENS PROSTH W/O ECP Bilateral 08/2020 REMOVE GALLBLADDER 2004 REMOVE TONSILS & ADENOIDS, UNDER 12 THROMBOENDARECTOMY W/PATCH,NECK INCISION 05/10/2002 Right Carotid Endarterectomy with artificial graft05/10/02 ([facility] - Dr. Rm) THROMBOENDARECTOMY W/PATCH,NECK INCISION Left 05/14/2004 Left carotid endarterectomy by Dr. Rm THROMBOENDARECTOMY W/PATCH,NECK INCISION Right 2002 x 2 US PELVIS TRANS-ABDOMINAL 08/23/2008 Normal Review of patient's allergies indicates: Allergen Reactions Amoxicillin Rash Levofloxacin Other (Please comment) Weakness, lightheadedness, nausea Niaspan [Niacin Er] Burned throat. Prednisone Blood pressure went up. Zyban [Bupropion Hcl] Family History Problem Relation Name Age of Onset Cancer Mother uterine ca Heart Disorder Mother pacemaker Cancer Father lung ca Gastro-intestinal disorder Father cirrhosis and brother brother age 49 Cancer Grandmother (Paternal) lung ca Cancer Brother troat Other (Other) Other no breast/ovarian/colon cancer Heart Disorder Brother massive mi age 57 Other (Other) Daughter hydrocephalic Diabetes Aunt (Unspecified) Family Status Relation Status Mo Alive Fa at age 54 ALCOHOLISM Bro at age 49 cirrhosis Bro at age 59 heart disease Bro Alive Bro Alive Sis Alive Sis Alive Bhavya Alive Bhavya Alive Son Alive Son Alive PGMA (Not Specified) Bro (Not Specified) Other (Not Specified) Bro (Not Specified) Bhavya (Not Specified) AUNT (Not Specified) Social History Socioeconomic History Marital status: Spouse name: Not on file Number of children: 4 Years of education: Not on file Highest education level: Not on file Occupational History Occupation: [employer] Employer: [employer] Tobacco Use Smoking status: Former Current packs/day: 0.00 Average packs/day: 1 pack/day for 60.0 years (60.0 ttl pk-yrs) Types: Cigarettes Start date: 12/23/1958 Quit date: 12/23/2018 Years since quittin.1 Smokeless tobacco: Never Tobacco comments: Started smoking age - 8 Vaping Use Vaping status: Never Used Substance and Sexual Activity Alcohol use: No [...] Comment: breast Social History Narrative works at [email or web address] 1st child born with hydroceph - MR - lives at home Social Determinants of Health Financial Resource Strain: Low Risk (08/27/2023) Financial Resource Strain Do you have any trouble paying for your medications, or do you think you might in the future? (Adult - for ages 18 years and over): No Does your family have trouble paying for medicine? (Household - for ages 0-17 years): Not on file Food Insecurity: No Food Insecurity (08/27/2023) Food Insecurity Do you need food for this week? (Adult - for ages 18 years and over): No Are you able to get enough food for your family? (Household - for ages 0-17 years): Not on file Does your family need food this week? (Household - for ages 0-17 years): Not on file Do you always have enough food for your family? (Household - for ages 0-17 years): Not on file Transportation Needs: No Transportation Needs (08/27/2023) Transportation Needs Do you have trouble getting a ride to medical visits or work? (Adult - for ages 18 years and over):Never True Does your family have a hard time getting a ride to doctors visits? (Household - for ages 0-17 years): Not on file Has lack of transportation kept you from medical appointments, meetings, work, or from getting things needed for daily living? Check all that apply. (Adult - for ages 18 years and over): Not on file Do you (or your family) have trouble finding or paying for a ride (transportation)? (Household - for ages 0-17 years): Not on file Social Connections: Socially Integrated (08/27/2023) Social Connections How often do you feel lonely or isolated from those around you? (Adult - for ages 18 years and over): Never Housing Stability: Low Risk (08/27/2023) Housing Stability Do you currently live in a senior care or have no steady place to sleep at night? (Adult - for ages 18 years and over): No Do you think you are at risk of becoming homeless? (Adult - for ages 18 years and over): No Does your family worry about paying for your home or becoming homeless? (Household - for ages 0-17 years): Not on file Are you homeless or worried that you might be in the future? (Adult - for ages 18 years and over): Not on file Are you (or your family) homeless or worried that you might be in the future? (Household - for ages0-17 years): Not on file Review of Systems Constitutional: Positive for fatigue. Negative for activity change, chills, fever and unexpected weight change. HENT: Negative for postnasal drip, rhinorrhea and sinus pressure. Eyes: Negative for visual disturbance. Respiratory: Negative for shortness of breath. Cardiovascular: Positive for palpitations. Negative for chest pain and leg swelling. Gastrointestinal: Negative for blood in stool, constipation, diarrhea, nausea and vomiting. Genitourinary: Negative for dysuria and hematuria. Musculoskeletal: Negative for gait problem. Skin: Negative for rash. Neurological: Positive for dizziness and light-headedness. Negative for syncope. Objective BP 142/60 | Pulse 68 | Resp 16 | Ht 1.626 m (5' 4") | Wt 102.5 kg (226 lb) | BMI 38.79 kg/m | BSA2.15 m Physical Exam Vitals and nursing note reviewed. Constitutional: General: She is awake. Appearance: Normal appearance. She is well-developed. HENT: Head: Normocephalic and atraumatic. Eyes: General: No scleral icterus. Extraocular Movements: Extraocular movements intact. Neck: Vascular: Normal carotid pulses. No carotid bruit or JVD. Cardiovascular: Rate and Rhythm: Normal rate and regular rhythm. Pulses: Carotid pulses are 2+ on the right side and 2+ on the left side. Radial pulses are 2+ on the right side and 2+ on the left side. Posterior tibial pulses are 2+ on the right side and 2+ on the left side. Heart sounds: S1 normal and S2 normal. Murmur heard. Pulmonary: Effort: Pulmonary effort is normal. Breath sounds: Normal breath sounds. No decreased breath sounds, wheezing, rhonchi or rales. Chest: Comments: Healing and intact incision over the ppm in the left infraclavicular region Abdominal: Palpations: Abdomen is soft. Musculoskeletal: Cervical back: Neck supple. Right lower leg: No edema. Left lower leg: No edema. Skin: General: Skin is warm and dry. Neurological: General: No focal deficit present. Mental Status: She is alert and oriented to person, place, and time. Psychiatric: Attention and Perception: Attention normal. Mood and Affect: Mood normal. Speech: Speech normal. Behavior: Behavior normal. Behavior is cooperative. Thought Content: Thought content normal. Cognition and Memory: Cognition normal. Judgment: Judgment normal. 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 The left ventricular ejection fraction was calculated to be 72%. Overall this Lexiscan nuclear stress test reveals mild ischemia of the inferior and inferior basilar myocardium. These findings are most consistent with the distribution of the right coronary or left circumflex arteries. Lab Work Reviewed: Component Latest Ref Rng 11/15/2023 Triglycerides <=174 mg/dL 287 (H) Cholesterol <200 mg/dL 138 HDL Cholesterol >49 mg/dL 38 (L) Non-HDL Cholesterol <=159 mg/dL 100 Hemoglobin A1C 4.0 - 5.6 % 6.6 (H) Estimated Average Glucose <126 mg/dL 143 (H) LDL Cholesterol (Direct Measure) <=129 mg/dL 54 Lab work at [facility]: CMP 02/2024 Na 134 K 4 Cl 93 CO2 36 BUN 25 Cr 0.92 Glucose 114 Ca 9.1 T. Abad 0.6 Alk Phos 83 AST 22 ALT 14 T. Protein 6.7 Albumin 4 CBC 02/06/2024 WBC 8 Hg 9.7 Hct 30.5 Plt 205 ASSESSMENT: TBS s/p ppm done as an inpatient 02/2024 CAD s/p MAGNETIC PROSPECTING SUPERVISOR of RCA, Cx 30%, rest of vessels with LI by cath 01/2006 ICM s/p EP 40% ABIODUN s/p b/l CEA pAF possibly becoming more permanent on diltiazem and toprol and eliquis [id number] (age, female, CAD, HTN, PAD, DM) HTn HLD PAD with b/l LE claudication, Subclavian artery, SMA and right renal artery occlusion COPD on nocturnal hypoxemia DM Pulmonary nodules HLD Secondary polycythemia Insomnia Psoriasis OA IBS GERD COPD CKD Stage III PLAN: -Pt doing well from cardiovascular perspective at this time -Recommend taking metoprolol 9am and 9pm with the diltiazem at 3pm to see if this improves her dizziness -Keep the pacemaker dressing on and dry until Tuesday 02/20 -If she still has a lot of RVR and not tolerating the AVN blockers might need to consider AVN ablation -Probably can reprogram device to VVIR in the near future -EP f/u 10 months to separate out from general cardiology by 6 months Need for prophylactic vaccination and inoculation against influenza (Primary) - INFLUENZA VAC., TRIVALENT, HD, PF, 65 AND ABOVE, 0.5 ML IM (FLUZONE HD) Regine Barcenas DO * Mckenna Kelly NRCMA - 02/18/2024 10:56 AM EDT PRE - ADMINISTRATION DOCUMENTATION Are you experiencing any cold symptoms or fever? No Have you had Guillain-Concord Syndrome (an illness that causes paralysis) within the last 6 weeks? No Have you had the flu shot in the past? YES Have you ever had a reaction to the flu shot? CAREN De La Cruz, 02/18/2024 10:56 AM Immunization Administration Documentation Time Out Procedure Performed: Yes Patient Identified (Ask Name/Date of ): Yes Does the patient have a fever greater than 101 degrees today? No Patient allergic to latex? No VFC Stock: No Immunization(s) verified: Yes, Immunization Name: Flu, VIS Sheet(s) given: Yes Verified Side and Site: Yes Verified Shot(s) with Parent(s)/Patient: Yes documented in this encounter Nursing Notes * Mckenna Kelly NRCMA - 02/18/2024 10:56 AM EDT Patient was identified by name and date of . Examination Room: 13 Name: Pastora Yee Date of : (1950). Reason for Visit: hd Interim Hospitalization(s): yes- pacer Problems/Concerns: exhaustion Chest Pain/SOB: SOB Medications reviewed and are up to date via: memory, no list [facility] is a way you can talk to your provider online through e-mail. Would you like to sign up? I can activate it for you? ALREADY ACTIVE Do you have video visit capabilities (email and smart phone)? No. Would you be interested in 6 or 12 return visit being scheduled as a video visit if the provider approves? No Patient was instructed to not get up on the exam table/exam chair until directed and assisted by their provider; patient is to remain seated in the chair/ wheelchair/ exam table/ exam chair for fall prevention and safety reasons. Patient is aware to have assistance to step down off exam table/exam chair with personnel. Patient voiced full comprehension of instructions. CAREN Ruelas documented in this encounter Plan of Treatment Upcoming Encounters Date Type Department Care Team (Late st Contact Info) Description 03/10/2024 2:30 PM EST Office Visit Nephrology [address] [place] [address] Lissa Owens PA-C [address] [place] [address] [place] [address] 05/19/2024 1:00 PM EST Cardiac Studies Cardiology, [facility] [address] [place] [address] [facility] [address] [place] [address] 06/20/2024 2:00 PM EST Office Visit Cardiology [address] [place] [address] Enrico De La Torre PA-C [address] [place] [address] 06/26/2024 1:40 PM EST Office Visit Family Medicine [address] [place] [phone] Christin Welch PA-C [address] [place] [address] [place] [address] 08/29/2024 3:00 PM EDT Nurse Only Ancillary [address] [place] [address] [place], Nurse Annual [address] [place] [address] 12/26/2024 2:30 PM EDT Office Visit Cardiology, [facility] [address] [place] [address] Ashli Alcala CRNP [address] [facility] [place] [address] Health Maintenance Due Date Last Done Comments Alpha-1 Antitrypsin 1967 Sigmoidoscopy 1994 Fecal Occult Blood Test 11/06/2006 11/06/2005 DTap/Tdap Vaccines (2 - Td or Tdap) 10/25/2017 10/26/2007 Colonoscopy 01/24/2019 01/24/2018, 09/01, 08/11/2007, Additional history exists Colorectal Cancer Screening 01/24/2019 Zoster Vaccines (3 of 3) 03/10/2019 01/13/2019, 03/03 CKD PHOS USE SMARTSET 38833 12/28/201912/02, 12/25/2018, 12/24/2018, Additional history exists Cologuard 11/04/2020 11/04/2017 Mammogram 11/19/2023 11/18/2022, 08/2022, 11/04/2022, Additional history exists COVID-19 Vaccine ( season) 2024 06/14/2023, 04/28/2022, 03/25/2021, Additional history exists Diabetic Eye Exam 02/23/2024 02/22/2023, , 07/02/2021, Additional history exists CKD HGB USE SMARTSET [id number] 05/12/202405/12, 05/12/2023, 09/24/2021, Additional history exists HbA1c [...] as of this encounter Visit Diagnoses Diagnosis Need for prophylactic vaccination and inoculation against influenza- Primary Tachy-maribel syndrome (HCC) Sinoatrial node dysfunction Coronary artery disease involving napaimute coronary artery of napaimute heart without angina pectoris Ischemic cardiomyopathy Other specified forms of chronic ischemic heart disease Permanent atrial fibrillation (HCC) Atrial fibrillation HTN, goal below 150/90 Hyperlipidemia with target LDL less than 70 Other and unspecified hyperlipidemia documented in this encounter Care Teams Microsoft Exchange Administrator Relationship Specialty Start Date End Date Daysi Pham MD [address] [place] [address] [place] [phone] PCP - General Family Medicine 07/01/17 documented as of this encounter
--- OUTSIDE RECORDS SUMMARY | 2024-06-26 22:30 | External Medical Summary | Summary of Care ---
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 Prednisone 09/03/2012 Blood pressure went up. Bupropion Hcl 01/30/2010 documented as of this encounter (statuses as of 02/16/2024) Medications Medication Sig Dispensed Refills Start Date [...] daily . 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 May repeat 3 times. If chest pain continues, call 911. 25 Tab 1 01/31/2019 Active Wheat Dextrin (BENEFIBER) powderIndications:What's More Alive Than You Take by mouth . 1 teaspoon daily [...] instructions reported), Indications: allergies, Reported on 08/21/2022 SocialSciTouch Verio w/Device KitIndications:Type 2 diabetes mellitus with [...] 90 Tablet 3 02/26/2023 4 Active Ipratropium [place] 0.03 % Nasal Solution (Atrovent)Indication s:Rhinorrhea ADMINISTER [...] 3 10/18/2023 5 Active OneTouch Delica Plus [id number] :Type 2 diabetes mellitus with hemoglobin A1c [...] as of this encounter (statuses as of 02/16/2024) Active Problems Problem Noted Date Diagnosed Date [...] as of this encounter (statuses as of 02/16/2024) Resolved Problems Problem Noted Date Diagnosed Date [...] as of this encounter (statuses as of 02/16/2024) Immunizations Name Administration Dates Next Due COVID-19 mRNA, LNP-s, No Pre serve, 2-Dose Series ([employer]) 03/25/2021,08/27/2020,08/06/2020 COVID-19, MRNA-LNP, 23-24, P F, 30 MCG/0.3 mL, 12 YRS AND ABOVE, IM ([employer]-Comirnat[employer] Grounds Keeper) 06/14/2023 Covid-19, Mrna, Lnp-s, Pf, B ivalent, [...] 02/18/2024 11:00 AM EDT Office Visit Cardiology, [facility] [address] [facility] [place] [address] Regine Barcenas, [address] [facility] [place] [phone] 03/10/2024 2:30 PM EST Office Visit Nephrology [address] [place] [address] Lissa Owens PA-C [address] [facility] [place] [address] 06/20/2024 2:00 PM EST Office Visit Cardiology [address] [place] [address] Enrico De La Torre PA-C [address] [place] [address] 06/26/2024 1:40 PM EST Office Visit Family Medicine [address] [place] [phone] Christin Welch PA-C [address] [place] [address] [place] [phone] 08/29/2024 3:00 PM EDT Nurse Only Ancillary Margarita Santiago[address] [place] [address] Movallwaldemar, Nurse Annual Wellness [address] [place] [address] [place] [phone] Health Maintenance Due Date Last Done Comments Alpha-1 Antitrypsin 1967 Sigmoidoscopy 1994 Fecal Occult Blood Test 11/06/2006 11/06/2005 DTap/Tdap Vaccines (2 - Td or Tdap) 10/25/2017 10/26/2007 Colonoscopy 01/24/2019 01/24/2018, 09/01, 08/11/2007, Additional history exists Colorectal Cancer Screening 01/24/2019 Zoster Vaccines (3 of 3) 03/10/2019 01/13/2019, 03/03 CKD PHOS USE SMARTSET 58391 12/28/201912/02, 12/25/2018, 12/24/2018, Additional history exists Cologuard 11/04/2020 11/04/2017 Mammogram 11/19/2023 11/18/2022, 07/0 08/2022, 11/04/2022, Additional history exists COVID-19 Vaccine ( season) 2024 06/14/2023, 04/28/2022, 03/25/2021, Additional history exists Influenza Vaccine (FLU shot) (#1) 2024 01/20/2022, 01/20/2022, 02/06/2021, Additional history exists Diabetic Eye Exam 02/23/2024 02/22/2023, , 07/02/2021, Additional history exists CKD HGB USE SMARTSET 93237 05/12/202405/12, 05/12/2023, 09/24/2021, Additional history exists HbA1c [...] filedocumented as of this encounter Care Teams Wind Turbine Sheet Metal Worker Relationship Specialty Start Date End Date Daysi Pham MD [address] [place] [address] [place] [phone] PCP - General Family Medicine 07/01/17 documented as of this encounter
--- OUTSIDE RECORDS SUMMARY | 2024-06-26 22:30 | External Medical Summary | Summary of Care ---
Author Name Unknown Organization [facility] Address [address] [place] [address] Phone [phone] Care Team Providers Care Marketing Operations Specialist Name Role Phone Daysi Pham MD Primary Care Provide r Reason for Visit * Reason Comments Medication Refill Encounter Details Date Type Department Care Team (Late st Contact Info) Description 02/21/2024 Refill Cardiology, [facility] [address] [place] [address] Bela Black PA-C [address] [place], [place] [phone] HTN, goal below 140/90 Allergies Active Allergy Reactions Criticality Noted Date Comments Amoxicillin Rash 11/19/2011 Levofloxacin Other (Please comment) 11/13/2013 Weakness, lightheadedness, nausea Niacin Er 01/30/2010 Burned throat. Prednisone 09/03/2012 Blood pressure went up. Bupropion Hcl 01/30/2010 documented as of this encounter (statuses as of 02/23/2024) Medications Medication Sig Dispensed Refills Start Date End Date Status VITAMIN B COMPLEX PO CAPSIndications:sup plementation Take by mouth 1 Capsule daily . Active CO Q 10 100 MG PO CAPSIndications:leg pain Take by mouth 100 mg daily . Active ASPIRIN 81 MG PO TABSIndications:Baroc Puba [employer] Take 1 Tablet by mouth in the morning. Active oxygen GAS Use 2 L/min(Oxygen) as directed at bedtime. 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 Duonebs, 3 ml's every 6 hours as needed 1 Device 7 Active Multiple Vitamins-Minerals (MULTIVITAMIN WOMEN) TABSIndications:gen eral [employer] Take by mouth 1 Tablet daily . [...] than 8.0% ([facility]) Use once a day Dx: E11.9 [...] Oral Capsule Take by mouth. Active Ipratropium [place] 0.03 % Nasal Solution (Atrovent)Indicatio ns:Rhinorrhea ADMINISTER 2 SPRAYS INTO EACH NOSTRIL 4 TIMES A DAY NEEDED FOR RHINITIS. FOR RUNNY NOSE 90 mL 1 3 Active Ipratropium-Albuter ol 20-100 MCG/ACT Inhalation Aerosol Solution (Combivent Respimat)Indication s:COPD, group B, by GOLD 2017 classification ([facility]) INHALE 1 PUFF BY MOUTH IN THE MORNING, 1 PUFF AT NOON, 1 PUFF IN THE EVENING, AND 1 PUFF BEFORE BEDTIME 12 g 1 3 04/15/20 24 Active OneTouch Verio In Vitro Strip (Glucose Blood)Indications:T ype 2 diabetes mellitus with hemoglobin A1c goal of less than 8.0% ([facility]) USE TO TEST BLOOD SUGAR ONCE [...] 4 10/18/19 25 Active OneTouch Delica Plus [id number] s:Type 2 diabetes mellitus with hemoglobin A1c goal of less than 8.0% ([facility]) USE TO TEST BLOOD SUGAR ONCE A DAY DIRECTED 100 Each 1 4 10/30/19 25 Active Amitriptyline HCl 10 MG Oral Tablet (Elavil)Indications :Insomnia, unspecified type take one tablet by mouth at bedtime 100 Tablet 1 4 Active Empagliflozin 10 MG Oral Tablet (Jardiance)Indicati ons:Type 2 diabetes mellitus with hemoglobin A1c goal of less than 8.0% ([facility]) Take 1 Tablet by mouth in the morning. 90 Tablet 3 4 Active Apixaban 5 MG Oral Tablet (Eliquis)Indication s:Cerebrovascular disease, arteriosclerotic, post-stroke,Paroxys mal atrial fibrillation (HCC) TAKE ONE TABLET BY MOUTH TWICE A DAY 200 Tablet 1 4 Active Pregabalin 25 MG Oral Capsule (Lyrica)Indications :Type 2 diabetes, controlled, with neuropathy ([facility]) TAKE ONE CAPSULE BY MOUTH EVERY MORNING AND TAKE ONE CAPSULE BEFORE BEDTIME 60 Capsule 2 4 Active Ipratropium-Albuter ol 0.5-2.5 (3) MG/3ML Inhalation Solution (Duoneb) Inhale 3 mL via nebulizer in the morning and 3 mL at noon and 3 mL in the evening and 3 mL before bedtime. 90 mL 3 4 Active Esomeprazole Magnesium 40 MG Oral Capsule Delayed ReleaseIndications: Gastroesophageal reflux disease without esophagitis Take 1 Capsule by mouth 2 times a day with morning and evening meals. 200 Capsule 1 4 Active Isosorbide Mononitrate ER 30 MG Oral Tablet Extended Release 24 Hour (Imdur)Indications: HTN, goal below 140/90 TAKE ONE TABLET BY MOUTH EVERY MORNING 90 Tablet 3 4 02/23/20 25 Active Isosorbide Mononitrate ER 30 MG Oral Tablet Extended Release 24 Hour (Imdur)Indications: HTN, goal below 140/90 TAKE ONE TABLET BY MOUTH EVERY MORNING 90 Tablet 3 3 02/21/20 24 Discontinu ed(Refill) documented as of this encounter (statuses as of 02/23/2024) Active Problems Problem Noted Date Diagnosed Date [...] as of this encounter (statuses as of 02/23/2024) Resolved Problems Problem Noted Date Diagnosed Date [...] as of this encounter (statuses as of 02/23/2024) Immunizations Name Administration Dates Next Due COVID-19 mRNA, LNP-s, No Pre serve, 2-Dose Series ([employer]) 03/25/2021,08/27/2020,08/06/2020 COVID-19, MRNA-LNP, 23-24, P F, 30 MCG/0.3 mL, 12 YRS AND ABOVE, IM ([employer]-Comirnat) 06/14/2023 Covid-19, Mrna, Lnp-s, Pf, B ivalent, 30 Mcg, IM, 12 yrs and above ([employer]) 04/28/2022 H1N1 2009 Influenza, IM 05/15/2009 Pneumococcal [...] encounter Miscellaneous Notes * Telephone Encounter - Albert Patterson RPh - 02/23/2024 12:50 PM EDTSigned Prescriptions: Disp Refills Isosorbide Mononitrate ER 30 MG Oral Table*90 Tab*3 Sig: TAKE ONE TABLET BY MOUTH EVERY MORNING Authorizing Provider: BELA BLACK Ordering User: ALBERT PATTERSON * Telephone Encounter - Zenia Combs CPhT - 02/22/2024 12:01 PM EDT pharmacy calling to check on status of isosorbide. Caller can be reached at [phone]. Thank you, Zenia Combs CphT Wire Mesh Filter Fabricator III [facility] 02/22/24 * Telephone Encounter - Jonelle Price - 02/21/2024 6:29 PM EDTPending Prescriptions: Disp Refills Isosorbide Mononitrate ER 30 MG Oral Table*90 Tab*3 Sig: TAKE ONE TABLET BY MOUTH EVERY MORNING * Telephone Encounter - Jonelle Price - 02/21/2024 6:27 PM EDT Did you pend patient's preferred pharmacy and medication before forwarding?yes Pharmacy: [facility] Pending Prescriptions: Disp Refills Isosorbide Mononitrate ER 30 MG Oral Tabl*90 Tab*3 Sig: TAKE ONE TABLET BY MOUTH EVERY MORNING Last Visit: 09/01/2022 (in office), Visit date not found (telemedicine) Next Visit: 06/20/2024 If no future appointments scheduled, and last appointment is greater than a year ago, please schedule patient for a follow-up appointment Last date the medication was ordered: 02/26/2023 Is this request for a controlled substance?No Urine Drug Screen:No results found. However, due to the size of the patient record, not all encounters were searched. Please check Results Review for a complete set of results. Patient Phone Numbers Labs: Lab Results Component Value Date/Time CREAT 1.1 (H) 01/31/2024 02:34 PM CREAT 0.9 12/21/2019 03:02 PM CREAT 0.7 04/07/1996 03:55 PM POTASSIUM 4.0 01/31/2024 02:34 PM POTASSIUM 4.8 12/21/2019 03:02 PM POTASSIUM 3.8 04/07/1996 03:55 PM TSH 1.43 08/11/2018 08:30 AM TSH 1.40 04/07/1996 03:55 PM LDL 54 11/15/2023 01:44 PM LDL 34 12/21/2019 03:02 PM LDL 33 03/14/2019 02:35 PM ALT 23 11/15/2023 01:44 PM ALT 48 (H) 12/21/2019 03:02 PM HGBA1C 6.6 (H) 11/15/2023 01:44 PM HGBA1C 6.7 (H) 12/24/2018 02:25 AM HGBA1C 6.1 12/29/2016 08:27 AM documented in this encounter Plan of Treatment Upcoming Encounters Date Type Department Care Team (Late st Contact Info) Description 03/10/2024 2:30 PM EST Office Visit Nephrology [address] [place] [address] [facility] [address] 06/20/2024 2:00 PM EST Office Visit Cardiology [address] [place] [address] Bela Black PA-C [address] [place] [address] 06/26/2024 1:40 PM EST Office Visit Family Medicine [address] [place] [phone] Christin Welch PA-C [address] [place] [address] [place] [address] 08/29/2024 3:00 PM EDT Nurse Only Ancillary [address] [place] [phone] Movraghavendraey, Nurse [address] [place] [phone] 12/26/2024 2:30 PM EDT Office Visit Cardiology, [facility] [address] [place] [address] Ashli Alcala CRNP [address] [place] [phone] Health Maintenance Due Date Last Done Comments Alpha-1 Antitrypsin 1967 Sigmoidoscopy 1994 Fecal Occult Blood Test 11/06/2006 11/06/2005 DTap/Tdap Vaccines (2 - Td or Tdap) 10/25/2017 10/26/2007 Colonoscopy 01/24/2019 01/24/2018, 09/01, 08/11/2007, Additional history exists Colorectal Cancer Screening 01/24/2019 Zoster Vaccines (3 of 3) 03/10/2019 01/13/2019, 03/03 CKD PHOS USE SMARTSET 20670 12/28/201912/02, 12/25/2018, 12/24/2018, Additional history exists Cologuard 11/04/2020 11/04/2017 Mammogram 11/19/2023 11/18/2022, 0708/2022, 11/04/2022, Additional history exists COVID-19 Vaccine ( season) 2024 06/14/2023, 04/28/2022, 03/25/2021, Additional history exists Diabetic Eye Exam 02/23/2024 02/22/2023, , 07/02/2021, Additional history exists CKD HGB USE SMARTSET 61856 05/12/202405/12, 05/12/2023, 09/24/2021, Additional history exists HbA1c [...] hypertension documented in this encounter Care Teams Marketing Operations Specialist Relationship Specialty Start Date End Date Daysi Pham MD [address] [place] [address] [place] [phone] PCP - General Family Medicine 07/01/17 documented as of this encounter
--- OUTSIDE RECORDS SUMMARY | 2024-06-26 22:30 | External Medical Summary | Summary of Care ---
Author Name Unknown Organization [facility] Address [address] [place] [address] Phone [phone] Care Team Providers Care Inspector Barrel Name Role Phone Daysi Pham MD Primary Care Provide r Reason for Visit * Reason Comments Chronic Kidney Disease (CKD) Hospital Follow-Up * Evaluate & Treat - Unlimited Visits (Within 10 days (routine)) - Authorized Specialty Diagnoses / Procedures Referred By Contac t Referred To Contact Nephrology Diagnoses Proteinuria Daysi Pham MD [address] [place] [address] [place] [id number] Referral ID Status Reason Start Date Expiration Date Visits Requested Visits Authorized [id number] Authorized Specialty Services Required 11/18/2023 [id number] Encounter Details Date Type Department Care Team (Late st Contact Info) Description 01/31/2024 1:00 PM EDT Office Visit Nephrology [address] [place] [phone] Selene Veronica MD [address] [place] [address] [place] [address] Persistent proteinuria*; HTN, goal below 130/80; Hyperkalemia Allergies Active Allergy Reactions Criticality Noted Date Comments Amoxicillin Rash 11/19/2011 Levofloxacin Other (Please comment) 11/13/2013 Weakness, lightheadedness, nausea Niacin Er 01/30/2010 Burned throat. Prednisone 09/03/2012 Blood pressure went up. Bupropion Hcl 01/30/2010 documented as of this encounter (statuses as of 02/13/2024) Medications Medication Sig Dispensed Refills Start Date End Date Status VITAMIN B COMPLEX PO CAPSIndications:sup plementation Take by mouth 1 Capsule daily . Active CO Q 10 100 MG PO CAPSIndications:leg pain Take by mouth 100 mg daily . Active ASPIRIN 81 MG PO TABSIndications:Hightower Take 1 Tablet by mouth in the morning. Active oxygen GAS Use 2 L/min(Oxygen) as directed at bedtime. 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 Duonebs, 3 ml's every 6 hours as needed 1 Device 7 Active Multiple Vitamins-Minerals (MULTIVITAMIN WOMEN) TABSIndications:Ini3 Digital Take by mouth 1 Tablet daily . Active nitroglycerin (NITROSTAT) 0.4 MG SUBLIndications:Chr onic coronary artery disease Place 1 Tab under the tongue as needed for Pain, Chest. May repeat 3 times. If chest pain continues, call 911. 25 Tab 1 9 Active Wheat Dextrin (BENEFIBER) powderIndications:Bandspeed Take by mouth . 1 teaspoon daily [...] Tablet 3 3 02/29/20 24 Active Ipratropium [place] 0.03 % Nasal Solution (Atrovent)Indicatio ns:Rhinorrhea ADMINISTER 2 SPRAYS INTO EACH NOSTRIL 4 TIMES A DAY NEEDED FOR RHINITIS. FOR RUNNY NOSE 90 mL 1 3 Active Ipratropium-Albuter ol 20-100 MCG/ACT Inhalation Aerosol Solution (Combivent Respimat)Indication s:COPD, group B, by GOLD 2017 classification ([facility]) INHALE 1 PUFF BY MOUTH IN THE MORNING, 1 PUFF AT NOON, 1 PUFF IN THE EVENING, AND 1 PUFF BEFORE BEDTIME 12 g 1 3 04/15/20 24 Active OneTouch Verio In Vitro Strip (Glucose Blood)Indications:T ype 2 diabetes mellitus with hemoglobin A1c goal of less than 8.0% ([facility]) USE TO TEST BLOOD SUGAR ONCE A DAY 100 Strip 3 4 Active Lisinopril 5 MG Oral Tablet (Prinivil)Indicatio ns:HTN, goal below 140/90 TAKE ONE TABLET BY MOUTH EVERY DAY 90 Tablet 3 4 08/12/19 25 Active Additional Information Patient not taking.Reported on 01/31/2024 Atorvastatin Calcium 80 MG Oral Tablet (Lipitor)Indication s:Dyslipidemia, goal LDL below 100 TAKE ONE TABLET BY MOUTH EVERYday 100 Tablet 3 4 10/18/19 25 Active OneTouch Delica Plus [id number] s:Type 2 diabetes mellitus with hemoglobin A1c goal of less than 8.0% ([facility]) USE TO TEST BLOOD SUGAR ONCE A [...] the morning. 90 Tablet 3 4 Active Atenolol 50 MG [...] BEFORE BEDTIME 60 Capsule 2 4 Active Esomeprazole Magnesium 40 MG Oral Capsule Delayed ReleaseIndications: Gastroesophageal reflux disease without esophagitis Take 1 Capsule by mouth 2 times a day with morning and evening meals. 200 Capsule 1 4 02/07/20 24 Discontinu ed(Refill) documented as of this encounter (statuses as of 02/13/2024) Active Problems Problem Noted Date Diagnosed Date [...] as of this encounter (statuses as of 02/13/2024) Resolved Problems Problem Noted Date Diagnosed Date [...] as of this encounter (statuses as of 02/13/2024) Immunizations Name Administration Dates Next Due COVID-19 mRNA, LNP-s, No Pre serve, 2-Dose Series ([employer]) 03/25/2021,08/27/2020,08/06/2020 COVID-19, MRNA-LNP, 23-24, P F, 30 MCG/0.3 mL, 12 YRS AND ABOVE, IM ([employer]) 06/14/2023 Covid-19, Mrna, Lnp-s, Pf, B ivalent, 30 Mcg, IM, 12 yrs and above ([facility]) 04/28/2022 H1N1 2009 Influenza, IM 05/15/2009 Pneumococcal [...] Sign Reading Time Taken Comments Blood Pressure 124/70 01/31/2024 1:01 PM EDT Pulse 70 01/31/2024 1:01 PM EDT Temperature 35.7 C (96.2 F) 01/31/2024 1:01 PM ED T Respiratory Rate 20 01/31/2024 1:01 PM EDT Oxygen Saturation 95% 01/31/2024 1:01 PM EDT Inhaled Oxygen Concentration - - Weight 101.6 kg (224 lb) 01/31/2024 1:01 PM EDT Height - - Body Mass Index 38.45 08/27/2023 3:13 PM EDT documented in this encounter Patient Instructions * Patient Instructions* Selene Veronica MD - 01/31/2024 2:07 PM EDT -no medication changes today -try holding pomegranate tabs for at least 4-6 wks -recheck blood and urine tests today -may ask you for more labs on Feb 14 and/or have you see urology -avoid medicines like aleve, advil, ibuprofen, aspirin more than 81 mg daily and other NSAIDS whichare not good for kidney patients. Take only tylenol (acetaminophen) up to 2000 mg daily as needed for pain or as directed by your primary care provider. -aim for lower sodium diet -wait on your flu (or covid or rsv) shot until after your breathing settles down documented in this encounter Progress Notes * Selene Veronica MD - 01/31/2024 1:34 PM EDT NEPHROLOGY CLINIC NOTE Nephrology [address] [place] [address] 01/31/2024, 1:34 PM Patient Name: Pastora Yee Pastora Yee is a 73 year old female being seen in consultation today in Nephrology clinic, at the request of Daysi Pham* for proteinuria. Past Medical History: Diagnosis Date Calculus of [...] in three months Tobacco use disorder Vertigo Patient Active Problem List Diagnosis LACUNAR STROKE [...] vaginitis Chronic pain of both ankles Psoriasis Erythrocytosis Secondary polycythemia Aphasia as late effect of stroke Paroxysmal atrial fibrillation (HCC) COPD, group B, by GOLD 2017 classification ([facility]) Gastroesophageal reflux disease without esophagitis Type 2 diabetes mellitus with hemoglobin A1c goal of less than 8.0% ([facility]) Type 2 diabetes, controlled, with neuropathy ([facility]) Anxiety state Mesenteric artery stenosis ([facility]) Chronic kidney disease, stage 3a ([facility]) HPI: 73 year old female presents for evluation of progressive proteinuria. PMH includes 2019 lacunar [...] ESRD: N NSAID use: n/a Herbals/supplements: n/a Last hospital stay: November 2023 for syncope x 2 w/ fall/ ankle injruy REVIEW OF SYSTEMS: Chronic sx urinary retention some post void burning but no f/c; Does get hot/flushed Endorses frequent challenges swallowing Has plantar fasciiits and chronic back pain No orthostatic or presyncopal symptoms; no falls >> does get dizzy q AM and later on ok Current Outpatient Medications Medication Sig Dispense Refill [...] Take by mouth 1 Tablet daily . Wheat Dextrin (BENEFIBER) powder Take by mouth . 1 teaspoon daily in beverage Pomegranate 250 MG CAPS Take by mouth . Taking 400 mg daily fexofenadine (ARGELIA) 180 MG Tablet Take 1 Tab by mouth daily. For allergies. (Patient taking differently: Take 1 Tablet by mouth daily as needed for Allergies.) 90 Tab 3 Vitamin D 125 MCG (5000 UT) Oral Capsule Take by mouth. Isosorbide Mononitrate ER 30 MG Oral Tablet Extended Release 24 Hour (Imdur) TAKE ONE TABLET BY MOUTH EVERY MORNING 90 Tablet 3 Ipratropium [place] 0.03 % Nasal Solution (Atrovent) ADMINISTER 2 SPRAYS INTO EACH NOSTRIL 4 TIMES A DAY NEEDED FOR RHINITIS. FOR RUNNY NOSE 90 mL 1 Ipratropium-Albuterol 20-100 MCG/ACT Inhalation Aerosol Solution (Combivent Respimat) INHALE 1 PUFFBY MOUTH IN THE MORNING, 1 PUFF AT NOON, 1 PUFF IN THE EVENING, AND 1 PUFF BEFORE BEDTIME 12 g 1 Atorvastatin Calcium 80 MG Oral Tablet (Lipitor) TAKE ONE TABLET BY MOUTH EVERYday 100 Tablet 3 Amitriptyline HCl 10 MG Oral Tablet (Elavil) take one tablet by mouth at bedtime 100 Tablet 1 Empagliflozin 10 MG Oral Tablet (Jardiance) Take 1 Tablet by mouth in the morning. 90 Tablet 3 Atenolol 50 MG Oral Tablet (Tenormin) Take 1 Tablet by mouth in the morning. Apixaban 5 MG Oral Tablet (Eliquis) TAKE ONE TABLET BY MOUTH TWICE A DAY 200 Tablet 1 Pregabalin 25 MG Oral Capsule (Lyrica) TAKE ONE CAPSULE BY MOUTH EVERY MORNING AND TAKE ONE CAPSULEBEFORE BEDTIME 60 Capsule 2 Respiratory Therapy Supplies (NEBULIZER) ZAIRA Use as directed. Duonebs, 3 ml's every 6 hours as needed 1 Device 0 nitroglycerin (NITROSTAT) 0.[address] 1 Tab under the tongue as needed for Pain, Chest. May repeat 3 times. If chest pain continues, call 911. 25 Tab 1 OneTouch Verio w/Device Kit Use once a day Dx: E11.9 1 Kit 0 Fluocinolone Acetonide 0.01 % Otic Oil Administer into ears once a week . On Saturdays Systane Preservative Free 0.4-0.3 % Ophthalmic Solution (Polyethyl Glyc-Propyl Glyc PF) Instill into eye 1 Drop daily as needed for Other. OneTouch Verio In Vitro Strip (Glucose Blood) USE TO TEST BLOOD SUGAR ONCE A DAY 100 Strip 3 Lisinopril 5 MG Oral Tablet (Prinivil) TAKE ONE TABLET BY MOUTH EVERY DAY (Patient not taking: Reported on 01/31/2024) 90 Tablet 3 OneTouch Delica Plus [id number] USE TO TEST BLOOD SUGAR ONCE A DAY DIRECTED 100 Each 1 Ipratropium-Albuterol 0.5-2.5 (3) MG/3ML Inhalation Solution (Duoneb) Inhale 3 mL via nebulizer in the morning and 3 mL at noon and 3 mL in the evening and 3 mL before bedtime. 90 mL 3 Esomeprazole Magnesium 40 MG Oral Capsule Delayed Release Take 1 Capsule by mouth 2 times a day with morning and evening meals. 200 Capsule 1 No current facility-administered medications for this visit. Review of patient's allergies indicates: Allergen Reactions Amoxicillin Rash Levofloxacin Other (Please comment) Weakness, lightheadedness, nausea Niaspan [Niacin Er] Burned throat. Prednisone Blood pressure went up. 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 [employer] Employer: [employer] Tobacco Use Smoking status: Former Current packs/day: [...] Comment: breast Social History Narrative works at [employer] 1st child born with hydroceph - MR [...] Do you currently live in a senior living or have no steady place to sleep [...] - for ages0-17 years): Not on file Family History Problem Relation Name Age of [...] Specified) Bhavya (Not Specified) AUNT (Not Specified) PHYSICAL EXAMINATION: BP Readings from Last 6 Encounters: 01/31/24 124/70 01/20/24 112/60 12/06/23 112/66 08/27/23 122/60 06/14/23 116/62 11/18/22 124/70 Wt Readings from Last 6 Encounters: 01/31/24 101.6 kg (224 lb) 01/20/24 100.7 kg (222 lb) 08/27/23 103.9 kg (229 lb) 06/14/23 101.6 kg (224 lb) 09/01/22 102 kg (224 lb 14.4 oz) 08/25/22 101.7 kg (224 lb 3.2 oz) Pulse Readings from Last 6 Encounters: 01/31/24 70 01/20/24 60 12/06/23 59 08/27/23 64 06/14/23 57 11/18/22 68 NAD, oriented x 3, in w/c; on 02NC 3L Normocephalic, atraumatic, eomi nonicteric sclerae MMM, KOI Supple neck RRR w/o m/g/r; no edema CTAB w/ reduced air mvt NT abd, +BS, soft No CVA TTP, no diaper or miller No cyanosis or clubbing No rash No tremor, focal or global weakness; speech appropriate but challenges doing word finding and hard to understand at times LABS: Recent Labs Units 01/31/24 1434 11/22/23 1338 11/15/23 1344 05/12/23 1102 08/11/22 1324 SODIUM - [facility] mmol/L 141 -- 139 138 142 POTASSIUM - [facility] mmol/L 4.0 4.4 5.6* 5.0 4.8 CHLORIDE - [facility] mmol/L 100 -- 96* 97* 100 CO2 - [facility] mmol/L 32 -- 31 30 34* ESTIMATED GLOMERULAR FILTRATION RATE - [facility] mL/min 54* -- 46* 46* 68 BUN - [facility] mg/dL 17 -- 21* 19 16 CREATININE - [facility] mg/dL 1.1* -- 1.2* 1.2* 0.9 Recent Labs Units 05/12/23 1102 HGB g/dL 12.6 Recent Labs Units 01/31/24 1434 11/15/23 1344 05/12/23 1102 08/11/22 1324 CALCIUM - [facility] mg/dL 9.8 9.7 9.7 9.1 Recent Labs Units 11/15/23 1344 05/12/23 1102 08/11/22 1324 HEMOGLOBIN A1C - [facility] % 6.6* 6.8* 6.5* Recent Labs Units 01/31/24 1434 11/15/23 1344 03/02/23 0610 03/09/22 0948 ALBUMIN / CREATININE RATIO, URINE - [facility] mg/g Creat 1,971* 555* 124* 46* PROTEIN/ CREATININE RATIO, URINE - [facility] mg/g 3,029* -- -- -- Recent Labs Units 01/31/24 1434 11/06/22 1349 CLARITY, URINE - [facility] Clear Clear GLUCOSE, URINE - [facility] mg/dL >=1000* >=1000* BILIRUBIN, URINE - [facility] Negative Negative KETONE, URINE - [facility] mg/dL Negative Negative SPECIFIC GRAVITY, URINE - [facility] 1.037* 1.025 BLOOD, URINE - [facility] Negative Negative PH, URINE - [facility] Units 6.5 6.0 PROTEIN, URINE - [facility] mg/dL >300* 30* PROTEIN, RANDOM URINE - [facility] mg/dL 315 -- UROBILINOGEN, URINE - [facility] mg/dL Normal Normal NITRITE, URINE - [facility] Negative Negative ESTERASE, URINE - [facility] Negative Negative BACTERIA, URINE - [facility] /HPF 0-25 0-25 WBC, URINE - [facility] /HPF 3-5* 0-2 RBC, URINE - [facility] /HPF 0-2 0-2 PERTINENT IMAGING INFO: November 2023 rneal u/s RIGHT KIDNEY: 8.9 cm x 3.5 cm x 4.2 cm. Mildly atrophic. No hydronephrosis, shadowing calculi, or mass. LEFT KIDNEY: 12.0 cm x 6.1 cm x 5.2 cm. Normal size and echogenicity. No hydronephrosis, shadowing calculi, or mass. BLADDER: Partially filled. AORTA: Visualized portions normal in caliber. IMPRESSION Mildly atrophic right kidney. ASSESSMENT AND PLAN: Persistent proteinuria (Primary) - ALBUMIN / CREATININE RATIO, URINE - PROTEIN/ CREATININE RATIO, URINE - URINALYSIS WITH MICROSCOPIC EXAM - BASIC METABOLIC PANEL - MAGNESIUM HTN, goal below 130/80 - PROTEIN/ CREATININE RATIO, URINE - BASIC METABOLIC PANEL Hyperkalemia - BASIC METABOLIC PANEL - MAGNESIUM Follow Up: Return in about 3 months (around 05/01/2024) for clinic visit shamar VALENITN, clinic visit w/ [place].| For: clinic visit shamar VALENTIN, clinic visit w/ [place] | Check-out note: Waitlist To lab Markedly progressive proteinuria over 2 years from 46 in 2021 > 124 a year ago > 555 this summer. Cause unclear. Notably though she also has CKD3 now >> CKD has emerged on blood tests as proteinuria worsened. No hematuria; urine sediment not obviously active though would repeat sample. No structural explanation on renal u/s for this. Continue SGLT2i. Off of lisinopril d/t concerns for passing out -eliminate supplements where feasible -recheck blood /urine tests today >> if trend ongoing, will need further labs -lower dietary sodium HTN w/ acceptable control >> note balance issues and palpitations -cont atenolol and (though not technically an antihypertensive it helps w/ natriuriesis) SGLT2i -monitor for presyncopal sx/changes Patient Instructions -no medication changes today -try holding pomegranate tabs for at least 4-6 wks -recheck blood and urine tests today -may ask you for more labs on Feb 14 and/or have you see urology -avoid medicines like aleve, advil, ibuprofen, aspirin more than 81 mg daily and other NSAIDS whichare not good for kidney patients. Take only tylenol (acetaminophen) up to 2000 mg daily as needed for pain or as directed by your primary care provider. -aim for lower sodium diet -wait on your flu (or covid or rsv) shot until after your breathing settles down Selene Veronica MD CC: REF: DAYSI PHAM [address] [place] [address] (office) [phone] (fax) [facility] [address] [place] [address] [phone] This chart was completed in part utilizing [employer] Speech Voice Recognition Software. Randomword insertions, pronoun errors, and incomplete sentences are an occasional consequence of this system due to software limitations, and ambient noise. Any questions or concerns about the content, text, or information contained within the body of this dictation should be directly addressed to the provider for clarification. documented in this encounter Nursing Notes * Lilly Tee RN - 01/31/2024 1:02 PM EDT Hospital follow up visit. Significant other with pt today. States she had a stroke 5 years ago. Wasin the hospital in October when she started passing out. Feels short of breath at times. documented in this encounter Miscellaneous Notes * Result Encounter Note - Selene Veronica MD - 02/13/2024 10:01 PM EDT Labs show proteinuria worsening further from October and much more than one year back. Now nearing nephrotic range w/o e/o nephrotic syndrome. Need more testing to understand better where proteinuria's from; cannot rule out possible kidney biopsy if blood tests/urine tests don't give answers. RECOMMEND -YUE, C3, C4, sPEP, UPEP (random), kappa/lambda ratio, CMP, Hep B SAg and core Ab, HCV Ab Pls place /pend orders for tests, send to me for my review and pls update pt documented in this encounter Plan of Treatment Upcoming Encounters Date Type Department Care Team (Late st Contact Info) Description 03/10/2024 2:30 PM EST Office Visit Nephrology [address] [place] [phone] Lissa Owens [facility]-C [address] [facility] [address] 06/20/2024 2:00 PM EST Office Visit Cardiology [address] [place] [address] Enrico De La Torre PA-C [address] [place] [address] 06/26/2024 1:40 PM EST Office Visit Family Medicine [address] [place] [phone] Christin Welch PA-C [address] [place] [address] [place] [phone] 08/29/2024 3:00 PM EDT Nurse Only Ancillary [address] [place] [phone] Zabrina, Nurse Annual Wellness [address] [place] [address] [place] [address] Health Maintenance Due Date Last Done Comments Alpha-1 Antitrypsin 1967 Sigmoidoscopy 1994 Fecal Occult Blood Test 11/06/2006 11/06/2005 DTap/Tdap Vaccines (2 - Td or Tdap) 10/25/2017 10/26/2007 Colonoscopy 01/24/2019 01/24/2018, 09/01, 08/11/2007, Additional history exists Colorectal Cancer Screening 01/24/2019 Zoster Vaccines (3 of 3) 03/10/2019 01/13/2019, 03/03 CKD PHOS USE SMARTSET 03936 12/28/201912/02, 12/25/2018, 12/24/2018, Additional history exists Cologuard 11/04/2020 11/04/2017 Mammogram 11/19/2023 11/18/2022, 07/0 08/2022, 11/04/2022, Additional history exists COVID-19 Vaccine ( season) 2024 06/14/2023, 04/28/2022, 03/25/2021, Additional history exists Influenza Vaccine (FLU shot) (#1) 2024 01/20/2022, 01/20/2022, 02/06/2021, Additional history exists Diabetic Eye Exam 02/23/2024 02/22/2023, , 07/02/2021, Additional history exists CKD HGB USE SMARTSET 85232 05/12/202405/12, 05/12/2023, 09/24/2021, Additional history exists HbA1c [...] Diagnosis Comments PROTEIN/ CREATININE RATIO, URINE Routine 01/31/2024 2:34 PM EDT Persistent proteinuria HTN, goal below 130/80 BASIC METABOLIC PANEL Routine 01/31/2024 2:34 PM EDT Persistent proteinuria HTN, goal below 130/80 Hyperkalemia URINALYSIS WITH MICROSCOPIC EXAM Routine 01/31/2024 2:34 PM EDT Persistent proteinuria ALBUMIN / CREATININE RATIO, URINE Routine 01/31/2024 2:34 PM EDT Persistent proteinuria MAGNESIUM Routine 01/31/2024 2:34 PM EDT Persistent proteinuria Hyperkalemia documented in this encounter Results * MAGNESIUM (01/31/2024 2:34 PM EDT) Magnesium 1.8 1.5 - 2.6 mg/dL 02/01/2024 12:50 AM EDT [facility] Blood Venous blood specimen / Unknown Venipuncture / Unknown 01/31/2024 2:34 PM EDT 01/31/2024 2:34 PM EDT Selene Veronica MD LAB BLOOD ORDERAB LES Performing Organization Address City/[facility]/ZIP Co de Phone Number [facility] [address] [place] [address] * (ABNORMAL) BASIC METABOLIC PANEL (01/31/2024 2:34 PM EDT) Pathologist [facility] BUN 17 6 - 20 mg/dL 02/01/2024 12:50 AM EDT [facility] CREATININE 1.1(H) 0.5 - 1.0 mg/dL 02/01/2024 12:50 AM EDT [facility] EGFR 54(L) >=60 mL/min 02/01/2024 12:50 AM EDT [facility] Comment:eGFR is calculated b ased on the CKD-EPI 2020 equation. SODIUM 141 135 - 146 mmol/L 02/01/2024 12:50 AM EDT [facility] POTASSIUM 4.0 3.5 - 5.1 mmol/L 02/01/2024 12:50 AM EDT [facility] CHLORIDE 100 98 - 107 mmol/L 02/01/2024 12:50 AM EDT [facility] CO2 32 22 - 32 mmol/L 02/01/2024 12:50 AM EDT [facility] ANION GAP 9 7 - 15 mmol/L 02/01/2024 12:50 AM EDT [facility] GLUCOSE 166(H) 70 - 120 mg/dL 02/01/2024 12:50 AM EDT [facility] CALCIUM 9.8 8.4 - 10.2 mg/dL 02/01/2024 12:50 AM EDT [facility] Blood Venous blood specimen / Unknown Venipuncture / Unknown 01/31/2024 2:34 PM EDT 01/31/2024 2:34 PM EDT Selene Veronica MD LAB BLOOD ORDERAB LES Performing Organization Address City/[facility]/ZIP Co de Phone Number [facility] [address] [place] [address] * (ABNORMAL) URINALYSIS WITH MICROSCOPIC EXAM (01/31/2024 2:34 PM EDT) Color, Urine Yellow Colorless, Light Yellow, Yellow, Dark Yellow 01/31/2024 11:38 PM EDT LABORATORY C Clarity, Urine Clear Clear 01/31/2024 11:38 PM EDT [facility] Glucose, Urine >=1000(A) Negative mg/dL 01/31/2024 11:38 PM EDT [facility] Bilirubin, Urine Negative Negative 01/31/2024 11:38 PM EDT LABORATORY C Ketone, Urine Negative Negative mg/dL 01/31/2024 11:38 PM EDT [facility] Specific [place], Urine 1.037(H) 1.003 - 1.030 01/31/2024 11:38 PM EDT [facility] Blood, Urine Negative Negative 01/31/2024 11:38 PM EDT [facility] pH, Urine 6.5 5.0 - 7.5 Units 01/31/2024 11:38 PM EDT [facility] Protein, Urine >300(A) Negative mg/dL 01/31/2024 11:38 PM EDT [facility] Urobilinogen, Urine Normal Normal mg/dL 01/31/2024 11:38 PM EDT [facility] Nitrite, Urine Negative Negative 01/31/2024 11:38 PM EDT [facility] Esterase, Urine Negative Negative 01/31/2024 11:38 PM EDT [facility] RBC, Urine 0-2 0 - 2 /HPF 01/31/2024 11:38 PM EDT LABORATORY C WBC, Urine 3-5(A) 0 - 2 /HPF 01/31/2024 11:38 PM EDT LABORATORY C Bacteria, Urine 0-25 0 - 25 /HPF 01/31/2024 11:38 PM EDT [facility] Urine Urine specimen obtained by clean catch procedure / Unknown Non-blood Collection / Unknown 01/31/2024 2:34 PM EDT 01/31/2024 2:34 PM EDT Selene Veronica MD LAB URINE ORDERAB LES LABORATORY [facility] [address] [place] [address] * (ABNORMAL) PROTEIN/ CREATININE RATIO, URINE (01/31/2024 2:34 PM EDT) Protein/ Creatinine Ratio, Urine 3,029(H) <150 mg/g 01/31/2024 11:54 PM EDT [facility] Protein, Random Urine 315 mg/dL 01/31/2024 11:54 PM EDT [facility] Creatinine, Random Urine 104 mg/dL 01/31/2024 11:54 PM EDT [facility] Urine Non-blood Collection / Unknown 01/31/2024 2:34 PM EDT 01/31/2024 2:34 PM EDT Narrative [facility] - 01/31/2024 11:54 PM EDT Normal: <150 mg/g creatinine High: 150-500 mg/g creatinine Very High: >500 mg/g creatinine Nephrotic: >3000 mg/g creatinine Selene Veronica MD LAB URINE ORDERAB LES LABORATORY [address] [address] * (ABNORMAL) ALBUMIN / CREATININE RATIO, URINE (01/31/2024 2:34 PM EDT) Albumin, Random Urine 207.00 mg/dL 01/31/2024 11:54 PM EDT [facility] Creatinine, Random Urine 105 mg/dL 01/31/2024 11:54 PM EDT [facility] Albumin / Creatinine Ratio, Urine 1,971(H) <30 mg/g Creat 01/31/2024 11:54 PM EDT [facility] [place] Urine specimen obtained by clean catch procedure / Unknown Non-blood Collection / Unknown 01/31/2024 2:34 PM EDT 01/31/2024 2:34 PM EDT Narrative [facility] - 01/31/2024 11:54 PM EDT Normal: <30 mg/g creatinine High: 30-300 mg/g creatinine Very High: >300 mg/g creatinine Nephrotic: >2200 mg/g creatinine Selene Veronica MD LAB URINE ORDERAB LES [facility] [place] [address] documented in this encounter Visit Diagnoses Diagnosis Persistent proteinuria- Primary Proteinuria HTN, goal below 130/80 Unspecified essential hypertension Hyperkalemia Hyperpotassemia documented in this encounter Care Teams Inspector Barrel Relationship Specialty Start Date End Date Daysi Pham MD [address] [place] [address] [place] [address] PCP - General Family Medicine 07/01/17 documented as of this encounter"
--- OUTSIDE RECORDS SUMMARY | 2024-06-26 22:30 | External Medical Summary | Summary of Care ---
Author Name Unknown Organization [facility] Address [address] [place] [address] Phone [phone] Care Team Providers Care Track Moving Machine Operator Name Role Phone Daysi Pham MD Primary Care Provide r Encounter Details Date Type Department Care Team (Late st Contact Info) Description 02/18/2024 Result Scan Unspecified Department Regine Barcenas, DO [address] [place] [address] <No scans attached> Allergies Active Allergy [...] Device 05/21/2016 Active Multiple Vitamins-Minerals (MULTIVITAMIN WOMEN) TABSIndications:Steelwedge Software Take by mouth 1 Tablet daily . Active nitroglycerin (NITROSTAT) 0.4 MG SUBLIndications:Cart Attendant lev coronary artery disease Place 1 Tab under the tongue as needed for Pain, Chest. May repeat 3 times. If chest pain continues, call 911. 25 Tab 1 01/31/2019 Active Wheat Dextrin (BENEFIBER) powderIndications:tic Take by mouth . 1 teaspoon daily [...] goal of less than 8.0% ([facility]) Use once a day Dx: [...] MORNING 90 Tablet 3 02/26/2023 Active Ipratropium [place] 0.03 % Nasal Solution (Atrovent)Indication s:Rhinorrhea ADMINISTER 2 SPRAYS INTO EACH NOSTRIL 4 TIMES A DAY NEEDED FOR RHINITIS. FOR RUNNY NOSE 90 mL 1 03/15/2023 Active Ipratropium-Albutero l 20-100 MCG/ACT Inhalation Aerosol Solution (Combivent Respimat)Indications :COPD, group B, by GOLD 2017 classification ([facility]) INHALE 1 PUFF BY MOUTH IN THE MORNING, 1 PUFF AT NOON, 1 PUFF IN THE EVENING, AND 1 PUFF BEFORE BEDTIME 12 g 1 04/16/2023 4 Active OneTouch Verio In Vitro Strip (Glucose Blood)Indications:Ty pe 2 diabetes mellitus with hemoglobin A1c goal of less than 8.0% ([facility]) USE TO TEST BLOOD SUGAR [...] 3 10/18/2023 5 Active OneTouch Delica Plus [id number] :Type 2 diabetes mellitus with hemoglobin A1c goal of less than 8.0% ([facility]) USE TO TEST BLOOD SUGAR ONCE A DAY DIRECTED 100 Each 1 10/30/2023 5 Active Amitriptyline HCl 10 MG Oral Tablet (Elavil)Indications: Insomnia, unspecified type take one tablet by mouth at bedtime 100 Tablet 1 11/01/2023 Active Empagliflozin 10 MG Oral Tablet (Jardiance)Indicatio ns:Type 2 diabetes mellitus with hemoglobin A1c goal of less than 8.0% ([facility]) Take 1 Tablet by mouth in the morning. 90 Tablet 3 11/02/2023 Active Apixaban 5 MG Oral Tablet (Eliquis)Indications :Cerebrovascular disease, arteriosclerotic, post-stroke,Paroxysm al atrial fibrillation ([facility]) TAKE ONE TABLET BY MOUTH TWICE A DAY 200 Tablet 1 12/08/2023 Active Pregabalin 25 MG Oral Capsule (Lyrica)Indications: Type 2 diabetes, controlled, with neuropathy ([facility]) TAKE ONE CAPSULE BY MOUTH [...] mRNA, LNP-s, No Pre serve, 2-Dose Series (ITYZ) 03/25/2021,08/27/2020,08/06/2020 COVID-19, MRNA-LNP, 23-24, P F, 30 MCG/0.3 mL, 12 YRS AND ABOVE, IM ([facility]) 06/14/2023 Covid-19, Mrna, Lnp-s, Pf, B ivalent, [...] 2:10 PM EDT Sexual Orientation Straight 07/16/2020 2 :10 PM EDT Job Start Date Occupation Industry Not on file Not on file Not on file documented as of this encounter Plan of Treatment Upcoming Encounters Date Type Department Care Team (Late st Contact Info) Description 03/10/2024 2:30 PM EST Office Visit Nephrology [address] [place] [address] Lissa Owens PA-C [address] [place] [address] 06/20/2024 2:00 PM EST Office Visit Cardiology [address] [place] [address] Enrico De La Torre PA-C [address] [place] [address] 06/26/2024 1:40 PM EST Office Visit Family Medicine [address] [place] [phone] Christin Welch PA-C [address] [place] [address] [place] [address] 08/29/2024 3:00 PM EDT Nurse Only Ancillary [address] [place] [address] [place]abrina, Nurse Annual Wellness [address] [place] [address] [place] [address] 12/26/2024 2:30 PM EDT Office Visit Cardiology, [facility] [address] [place] [address] Ashli Alcala, EFREM [address] [place] [place] [phone] Health Maintenance Due Date Last Done Comments Alpha-1 Antitrypsin 1967 Sigmoidoscopy 1994 Fecal Occult Blood Test 11/06/2006 11/06/2005 DTap/Tdap Vaccines (2 - Td or Tdap) 10/25/2017 10/26/2007 Colonoscopy 01/24/2019 01/24/2018, 09/01, 08/11/2007, Additional history exists Colorectal Cancer Screening 01/24/2019 Zoster Vaccines (3 of 3) 03/10/2019 01/13/2019, 03/03 CKD PHOS USE SMARTSET 96989 12/28/201912/02, 12/25/2018, 12/24/2018, Additional history exists Cologuard 11/04/2020 11/04/2017 Mammogram 11/19/2023 11/18/2022, 08/2022, 11/04/2022, Additional history exists COVID-19 Vaccine ( season) 2024 06/14/2023, 04/28/2022, 03/25/2021, Additional history exists Diabetic Eye Exam 02/23/2024 02/22/2023, , 07/02/2021, Additional history exists CKD HGB USE SMARTSET 14669 05/12/202405/12, 05/12/2023, 09/24/2021, Additional history exists HbA1c [...] Date/Time Associated Diagnosis Comments CARDIOLOGY SCANNED RESULT 02/18/2024 documented in this encounter Results * CARDIOLOGY SCANNED RESULT (02/18/2024) 02/18/2024 Regine Barcenas DO OTHER documented in this encounter Care Teams Track Moving Machine Operator Relationship Specialty Start Date End Date Daysi Pham MD [address] [place] [address] [place] [address] PCP - General Family Medicine 07/01/17 documented as of this encounter
--- OUTSIDE RECORDS SUMMARY | 2024-06-26 22:30 | External Medical Summary | Summary of Care ---
Author Name Unknown Organization [facility] Address [address] [place] [address] Phone [phone] Care Team Providers Care Monotype Mechanic Name Role Phone Daysi Pham MD Primary Care Provide r Reason for Visit * Reason Onset Date Comments Test Results 02/14/2024 Encounter Details Date Type Department Care Team (Late st Contact Info) Description 02/14/2024 Telephone Nephrology, [facility] [place] [address] [place] [address] Selene Veronica MD [address] [place] [address] Test Results Allergies Active Allergy Reactions Criticality Noted Date [...] Device 05/21/2016 Active Multiple Vitamins-Minerals (MULTIVITAMIN WOMEN) TABSIndications:Digerati Take by mouth 1 Tablet daily . Active nitroglycerin (NITROSTAT) 0.4 MG SUBLIndications:Architectural Draftsperson lev coronary artery disease Place 1 Tab under the tongue as needed for Pain, Chest. May repeat 3 times. If chest pain continues, call 911. 25 Tab 1 01/31/2019 Active Wheat Dextrin (BENEFIBER) powderIndications:[employer] Take by mouth . 1 teaspoon daily [...] goal of less than 8.0% ([facility]) Use once a day Dx: E11.9 1 [...] 90 Tablet 3 02/26/2023 4 Active Ipratropium [place] 0.03 % Nasal Solution (Atrovent)Indication s:Rhinorrhea ADMINISTER 2 SPRAYS INTO EACH NOSTRIL 4 TIMES A DAY NEEDED FOR RHINITIS. FOR RUNNY NOSE 90 mL 1 03/15/2023 Active Ipratropium-Albutero l 20-100 MCG/ACT Inhalation Aerosol Solution (Combivent Respimat)Indications :COPD, group B, by GOLD 2017 classification ([facility]) INHALE 1 PUFF BY MOUTH IN THE MORNING, 1 PUFF AT NOON, 1 PUFF IN THE EVENING, AND 1 PUFF BEFORE BEDTIME 12 g 1 04/16/2023 4 Active OneTouch Verio In Vitro Strip (Glucose Blood)Indications:Ty pe 2 diabetes mellitus with hemoglobin A1c goal of less than 8.0% ([facility]) USE TO TEST BLOOD SUGAR ONCE A [...] 3 10/18/2023 5 Active OneTouch Delica Plus [id number] :Type 2 diabetes mellitus with hemoglobin A1c goal of less than 8.0% ([facility]) USE TO TEST BLOOD SUGAR ONCE A DAY DIRECTED 100 Each 1 10/30/2023 5 Active Amitriptyline HCl 10 MG Oral Tablet (Elavil)Indications: Insomnia, unspecified type take one tablet by mouth at bedtime 100 Tablet 1 11/01/2023 Active Empagliflozin 10 MG Oral Tablet (Jardiance)Indicatio ns:Type 2 diabetes mellitus with hemoglobin A1c goal of less than 8.0% ([facility]) Take 1 Tablet by mouth in the [...] mRNA, LNP-s, No Pre serve, 2-Dose Series (CareOne) 03/25/2021,08/27/2020,08/06/2020 COVID-19, MRNA-LNP, 23-24, P F, 30 MCG/0.3 mL, 12 YRS AND ABOVE, IM ([facility]) 06/14/2023 Covid-19, Mrna, Lnp-s, Pf, B ivalent, 30 Mcg, IM, 12 yrs and above (Pfizer) 04/28/2022 H1N1 2009 Influenza, IM 05/15/2009 Pneumococcal Conjugate Vacc, 13 Valent (Prevnar) 11/01/2014 Pneumococcal Polysaccharide PPV23 (Pneumovax) 06/30/2016,05/03/2003 Season Influenza, Quad, PF, Adjuvanted, 65+ Yrs, IM (FLUAD) 02/16/2020 Seasonal Influenza Vac., MDV , IM, 0.5 mL (Fluzone) 03/03/2017,01/11/2014,01/31/2013,01/31,01/27/2011,01/30/2010,01/18/2009 ,02/29/2008,01/31/2007,01/31/2006 Seasonal Influenza Virus Vac cine, Unspecified Formulation 01/20/2022,02/06/2021,02/16/2020,01/10,02/14/2018,01/31/2018,03/03/2017 ,02/28/2016,01/11/2014,01/31/2013,10/05/2011,01/27/2011,01/30/2010, 0,01/18/2009,02/29/2008,01/31/2007,05/2005,03/17/2005 Seasonal Influenza, Quadriva lent Hd (Fluzone [...] No 08/27/2023 Does the household have a [facility] source of income? (Household - for [...] encounter Miscellaneous Notes * Telephone Encounter - Dianne Valadez LPN - 02/16/2024 12:50 PM EDT Attempted to contact only received LMM will send MyG regarding results and MD recommendations * Telephone Encounter - Selene Veronica MD - 02/16/2024 12:42 PM EDT Reviewed/signed; returned to nurse to update pt if nto already done * Telephone Encounter - Dianne Valadez LPN - 02/14/2024 5:19 PM EDT Lab orders pended * Telephone Encounter - Dianne Valadez LPN - 02/14/2024 5:19 PM EDT ----- Message from Selene Veronica MD sent at 02/13/2024 10:01 PM EDT ----- Labs show proteinuria worsening further from October [...] 02/18/2024 11:00 AM EDT Office Visit Cardiology, [facility] [address] [facility] [place] [address] Regine Barcenas, [address] [facility] [place] [address] 03/10/2024 2:30 PM EST Office Visit Nephrology [address] [place] [address] Lissa Owens PA-C [address] [place] [address] 06/20/2024 2:00 PM EST Office Visit Cardiology [address] [place] [address] Enrico De La Torre PA-C [address] [place] [address] 06/26/2024 1:40 PM EST Office Visit Family Medicine [address] [place] [phone] Christin Welch PA-C [address] [place] [address] [place] [address] 08/29/2024 3:00 PM EDT Nurse Only Ancillary [address] [place] [address] Zabrina Nurse [address] [place] [address] Scheduled Orders Name Type Priority Associated Diagnoses Orde r Schedule ANTINUCLEAR ANTIBODY (YUE) EIA SCREEN WITH REFLEX AB QUANT Lab Routine Persistent proteinuria Expected: 02/16/2024, Expires: 02/13/2025 COMPLEMENT C3 Lab Routine Persistent proteinuria Expected: 02/16/2024, Expires: 02/13/2025 COMPLEMENT C4 Lab Routine Persistent proteinuria Expected: 02/16/2024, Expires: 02/13/2025 SERUM FREE LIGHT CHAINS Lab Routine Persistent proteinuria Expected: 02/16/2024, Expires: 02/13/2025 SERUM IMMUNOFIXATION Lab Routine Persistent proteinuria Expected: 02/16/2024, Expires: 02/13/2025 URINE PROTEIN ELECTROPHORESIS REFLEX PROFILE, RANDOM URINE Lab Routine Persistent proteinuria Expected: 02/16/2024, Expires: 02/13/2025 COMPREHENSIVE METABOLIC PANEL Lab Routine Persistent proteinuria Expected: 02/16/2024, Expires: 02/13/2025 HEPATITIS B SURFACE ANTIGEN WITH REFLEX TO PCR Lab Routine Persistent proteinuria Expected: 02/16/2024, Expires: 02/13/2025 HEPATITIS B CORE ANTIBODY IGM Lab Routine Persistent proteinuria Expected: 02/16/2024, Expires: 02/13/2025 HEPATITIS C ANTIBODY SCREEN WITH PROGRESSION TO HEPATITIS C RNA QUANTITATIVE Lab Routine Persistent proteinuria Expected: 02/16/2024, Expires: 02/13/2025 Health Maintenance Due Date Last Done Comments Alpha-1 Antitrypsin 1967 Sigmoidoscopy 1994 Fecal Occult Blood Test 11/06/2006 11/06/2005 DTap/Tdap Vaccines (2 - Td or Tdap) 10/25/2017 10/26/2007 Colonoscopy 01/24/2019 01/24/2018, 09/01, 08/11/2007, Additional history exists Colorectal Cancer Screening 01/24/2019 Zoster Vaccines (3 of 3) 03/10/2019 01/13/2019, 03/03 CKD PHOS USE SMARTSET 98175 12/28/201912/02, 12/25/2018, 12/24/2018, Additional history exists Cologuard 11/04/2020 11/04/2017 Mammogram 11/19/2023 11/18/2022, 07/0 08/2022, 11/04/2022, Additional history exists COVID-19 Vaccine ( season) 2024 06/14/2023, 04/28/2022, 03/25/2021, Additional history exists Influenza Vaccine (FLU shot) (#1) 2024 01/20/2022, 01/20/2022, 02/06/2021, Additional history exists Diabetic Eye Exam 02/23/2024 02/22/2023, , 07/02/2021, Additional history exists CKD HGB USE SMARTSET 16211 05/12/202405/12, 05/12/2023, 09/24/2021, Additional history exists HbA1c [...] of this encounter Visit Diagnoses Diagnosis Persistent proteinuria- Primary Proteinuria documented in this encounter Care Teams Monotype Mechanic Relationship Specialty Start Date End Date Daysi Pham MD [address] [place] [address] [place] [phone] PCP - General Family Medicine 07/01/17 documented as of this encounter
--- OUTSIDE RECORDS SUMMARY | 2024-06-26 22:30 | External Medical Summary | Summary of Care ---
Author Name Unknown Organization [facility] Address [address] [place] [address] Phone [phone] Care Team Providers Care Cable Assembler And Swager Name Role Phone Daysi Pham MD Primary Care Provide r Encounter Details Date Type Department Care Team (Late st Contact Info) Description 11/27/2023 Result Scan Unspecified Department <No scans attached> [...] daily . Active nitroglycerin (NITROSTAT) 0.4 MG SUBLIndications:Event Specialist Food Demonstrator lev coronary artery disease Place 1 Tab under the tongue as needed for Pain, Chest. May repeat 3 times. If chest pain continues, call 911. 25 Tab 1 01/31/2019 Active Wheat Dextrin (BENEFIBER) powderIndications:Little1 Take by mouth . 1 teaspoon daily [...] A1c goal of less than 8.0% ([facility]) Use once a day Dx: E11.9 [...] 90 Tablet 3 02/26/2023 4 Active Ipratropium [place] 0.03 % Nasal Solution (Atrovent)Indication s:Rhinorrhea ADMINISTER 2 SPRAYS INTO EACH NOSTRIL 4 TIMES A DAY NEEDED FOR RHINITIS. FOR RUNNY NOSE 90 mL 1 03/15/2023 Active Ipratropium-Albutero l 20-100 MCG/ACT Inhalation Aerosol Solution (Combivent Respimat)Indications :COPD, group B, by GOLD 2017 classification ([facility]) INHALE 1 PUFF BY MOUTH IN [...] 3 10/18/2023 5 Active OneTouch Delica Plus [id number] :Type 2 diabetes mellitus with hemoglobin A1c [...] mRNA, LNP-s, No Pre serve, 2-Dose Series ([employer]) 03/25/2021,08/27/2020,08/06/2020 COVID-19, MRNA-LNP, 23-24, P F, 30 [...] No 08/27/2023 Does the household have a [facility] source of income? (Household - for ages [...] 2:30 PM EST Office Visit Nephrology [address] [place] [address] Lissa Owens PA-C [address] [facility] [place] [address] 06/20/2024 2:00 PM EST Office Visit Cardiology [address] [place] [address] Enrico De La Torre PA-C [address] [place] [address] 06/26/2024 1:40 PM EST Office Visit Family Medicine [address] [place] [phone] Christin Welch PA-C [address] [place] [address] [place] [address] 08/29/2024 3:00 PM EDT Nurse Only Ancillary [address] [place] [address] [place], Nurse Annual Wellness [address] [place] [address] [place] [address] 12/26/2024 2:30 PM EDT Office Visit Cardiology, [facility] [address] [place] [address] Ashli Alcala CRNP [address] [place] [address] [place] [address] Health Maintenance Due Date Last Done Comments Alpha-1 Antitrypsin 1967 Sigmoidoscopy 1994 Fecal Occult Blood Test 11/06/2006 11/06/2005 DTap/Tdap Vaccines (2 - Td or Tdap) 10/25/2017 10/26/2007 Colonoscopy 01/24/2019 01/24/2018, 09/01, 08/11/2007, Additional history exists Colorectal Cancer Screening 01/24/2019 Zoster Vaccines (3 of 3) 03/10/2019 01/13/2019, 03/03 CKD PHOS USE SMARTSET 82601 12/28/201912/02, 12/25/2018, 12/24/2018, Additional history exists Cologuard 11/04/2020 11/04/2017 Mammogram 11/19/2023 11/18/2022, 07/0 08/2022, 11/04/2022, Additional history exists COVID-19 Vaccine ( season) 2024 06/14/2023, 04/28/2022, 03/25/2021, Additional history exists Diabetic Eye Exam 02/23/2024 02/22/2023, , 07/02/2021, Additional history exists CKD HGB USE SMARTSET 33229 05/12/202405/12, 05/12/2023, 09/24/2021, Additional history exists HbA1c [...] Procedure Name Priority Date/Time Associated Diagnosis Comments ECHOCARDIOLOGY SCANNED RESULT 11/27/2023 documented in this encounter Results * ECHOCARDIOLOGY SCANNED RESULT (11/27/2023) 11/27/2023 No Physician Data Unknown ECHOCARDIOLOGY documented in this encounter Care Teams Cable Assembler And Swager Relationship Specialty Start Date End Date Daysi Pham MD [address] [place] [address] [place] [address] PCP - General Family Medicine 07/01/17 documented as of this encounter
--- OUTSIDE RECORDS SUMMARY | 2024-06-26 22:31 | External Medical Summary | Summary of Care ---
Author Name Unknown Organization [facility] Address [address] [place] [address] Phone [phone] Care Team Providers Care Tentering Machine Off Bearer Name Role Phone Daysi Pham MD Primary Care Provide r Encounter Details Date Type Department Care Team (Late st Contact Info) Description 02/03/2024 Result Scan Unspecified Department Mat Bustamante MD [address] [place] [address] <No scans attached> Allergies Active Allergy Reactions Criticality Noted Date Comments Amoxicillin Rash 11/19/2011 Levofloxacin Other (Please comment) 11/13/2013 Weakness, lightheadedness, nausea Niacin Er 01/30/2010 Burned throat. Prednisone 09/03/2012 Blood pressure went up. Bupropion Hcl 01/30/2010 documented as of this encounter (statuses as of 02/07/2024) Medications Medication Sig Dispensed Refills Start Date [...] 05/21/2016 Active Multiple Vitamins-Minerals (MULTIVITAMIN WOMEN) TABSIndications:gene Diurnal health Take by mouth 1 Tablet daily . Active nitroglycerin (NITROSTAT) 0.4 MG SUBLIndications:Warehouse Laborer lev coronary artery disease Place 1 Tab under the tongue as needed for Pain, Chest. May repeat 3 times. If chest pain continues, call 911. 25 Tab 1 01/31/2019 Active Wheat Dextrin (BENEFIBER) powderIndications:SynapticMash Take by mouth . 1 teaspoon daily [...] goal of less than 8.0% ([facility]) Use once a day Dx: E11.9 [...] MORNING 90 Tablet 3 02/26/2023 Active Ipratropium [place] 0.03 % Nasal Solution (Atrovent)Indication s:Rhinorrhea ADMINISTER 2 SPRAYS INTO EACH NOSTRIL 4 TIMES A DAY NEEDED FOR RHINITIS. FOR RUNNY NOSE 90 mL 1 03/15/2023 Active Ipratropium-Albutero l 20-100 MCG/ACT Inhalation Aerosol Solution (Combivent Respimat)Indications :COPD, group B, by GOLD 2017 classification ([facility]) INHALE 1 PUFF BY MOUTH IN [...] goal of less than 8.0% ([facility]) USE TO TEST BLOOD SUGAR ONCE [...] 3 10/18/2023 5 Active OneTouch Delica Plus [id number] :Type 2 diabetes mellitus with hemoglobin A1c goal of less than 8.0% ([facility]) USE TO TEST BLOOD SUGAR ONCE A DAY DIRECTED 100 Each 1 10/30/2023 5 Active Amitriptyline HCl 10 MG Oral Tablet (Elavil)Indications: Insomnia, unspecified type take one tablet by mouth at bedtime 100 Tablet 1 11/01/2023 Active Empagliflozin 10 MG Oral Tablet (Jardiance)Indicatio ns:Type 2 diabetes mellitus with hemoglobin A1c goal of less than 8.0% ([facility]) Take 1 Tablet by mouth in the [...] as of this encounter (statuses as of 02/07/2024) Active Problems Problem Noted Date Diagnosed Date [...] as of this encounter (statuses as of 02/07/2024) Resolved Problems Problem Noted Date Diagnosed Date [...] as of this encounter (statuses as of 02/07/2024) Immunizations Name Administration Dates Next Due COVID-19 mRNA, LNP-s, No Pre serve, 2-Dose Series (OP3Nvoice) 03/25/2021,08/27/2020,08/06/2020 COVID-19, MRNA-LNP, 23-24, P F, 30 MCG/0.3 mL, 12 YRS AND ABOVE, IM ([facility]) 06/14/2023 Covid-19, Mrna, Lnp-s, Pf, B ivalent, 30 Mcg, IM, 12 yrs and above (OP3Nvoice) 04/28/2022 H1N1 2009 Influenza, IM 05/15/2009 Pneumococcal [...] Description 02/15/2024 2:30 PM EDT Imaging Radiology [address] [place] [address] 02/21/2024 2:00 PM EDT Cardiac Studies Cardiology, [facility] [place] [address] [facility] [place] [address] 03/01/2024 2:30 PM EDT Office Visit Vascular Surgery, [facility] 132 [facility] [place] [address] Femi Urbano MD [address] [place] [facility] [place] [address] 06/09/2024 3:30 PM EST Office Visit Nephrology [address] [place] [address] Lissa Owens PA-C [address] [place] [address] 06/20/2024 2:00 PM EST Office Visit Cardiology [address] [place] [address] Enrico De La Torre PA-C [address] [place] [address] 06/26/2024 1:40 PM EST Office Visit Family Medicine [address] [place] [phone] Christin Welch PA-C [address] [place] [address] [place] [address] 08/29/2024 3:00 PM EDT Nurse Only Ancillary [address] [place] [address] [place], Nurse Annual Wellness [address] [place] [address] [place] [address] Health Maintenance Due Date Last Done Comments Alpha-1 Antitrypsin 1967 Sigmoidoscopy 1994 Fecal Occult Blood Test 11/06/2006 11/06/2005 DTap/Tdap Vaccines (2 - Td or Tdap) 10/25/2017 10/26/2007 Colonoscopy 01/24/2019 01/24/2018, 09/01, 08/11/2007, Additional history exists Colorectal Cancer Screening 01/24/2019 Zoster Vaccines (3 of 3) 03/10/2019 01/13/2019, 03/03 CKD PHOS USE SMARTSET 06070 12/28/201912/02, 12/25/2018, 12/24/2018, Additional history exists Cologuard 11/04/2020 11/04/2017 Mammogram 11/19/2023 11/18/2022, 08/2022, 11/04/2022, Additional history exists COVID-19 Vaccine ( season) 2024 06/14/2023, 04/28/2022, 03/25/2021, Additional history exists Influenza Vaccine (FLU shot) (#1) 2024 01/20/2022, 01/20/2022, 02/06/2021, Additional history exists Diabetic Eye Exam 02/23/2024 02/22/2023, , 07/02/2021, Additional history exists CKD HGB USE SMARTSET 68481 05/12/202405/12, 05/12/2023, 09/24/2021, Additional history exists HbA1c [...] Date/Time Associated Diagnosis Comments ECHOCARDIOLOGY SCANNED RESULT 02/03/2024 documented in this encounter Results * ECHOCARDIOLOGY SCANNED RESULT (02/03/2024) 02/03/2024 Mat Bustamante MD ECHOCARDIOLOGY documented in this encounter Care Teams Tentering Machine Off Bearer Relationship Specialty Start Date End Date Daysi Pham MD [address] [place] [address] [place] [address] PCP - General Family Medicine 07/01/17 documented as of this encounter
--- OUTSIDE RECORDS SUMMARY | 2024-06-26 22:31 | External Medical Summary | Summary of Care ---
Author Name Unknown Organization [facility] Address [address] [place] [address] Phone [phone] Care Team Providers Care Film Splicer Name Role Phone Daysi Pham MD Primary Care Provide r Reason for Visit * Reason Onset Date Comments Test Results 02/01/2024 Encounter Details Date Type Department Care Team (Late st Contact Info) Description 02/01/2024 Telephone Cardiology, [facility] [address] [place] [phone] Enrico De La Torre PA-C [address] [place] [address] Test Results Allergies Active Allergy Reactions Criticality Noted Date Comments Amoxicillin Rash 11/19/2011 Levofloxacin Other (Please comment) 11/13/2013 Weakness, lightheadedness, nausea Niacin Er 01/30/2010 Burned throat. Prednisone 09/03/2012 Blood pressure went up. Bupropion Hcl 01/30/2010 documented as of this encounter (statuses as of 02/01/2024) Medications Medication Sig Dispensed Refills Start Date End Date Status VITAMIN B COMPLEX PO CAPSIndications:supp lementation Take by mouth 1 Capsule daily . Active CO Q 10 100 MG PO CAPSIndications:leg pain Take by mouth 100 mg daily . Active ASPIRIN 81 MG PO TABSIndications:ModoPayments Take 1 Tablet by mouth in the morning. Active oxygen GAS Use 2 L/min(Oxygen) as directed at bedtime. Active Respiratory Therapy Supplies (NEBULIZER) DEVIIndications:COPD , moderate (HCC) Use as directed. Duonebs, 3 ml's every 6 hours as needed 1 Device 05/21/2016 Active Multiple Vitamins-Minerals (MULTIVITAMIN WOMEN) TABSIndications:EverTrue Take by mouth 1 Tablet daily . 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 May repeat 3 times. If chest pain continues, call 911. 25 Tab 1 01/31/2019 Active Wheat Dextrin (BENEFIBER) powderIndications:Tumblr Take by mouth . 1 teaspoon daily [...] 90 Tablet 3 02/26/2023 4 Active Ipratropium [place] 0.03 % Nasal Solution (Atrovent)Indication s:Rhinorrhea ADMINISTER [...] 8.0% ([facility]) USE TO TEST BLOOD SUGAR ONCE [...] 3 10/18/2023 5 Active OneTouch Delica Plus [id number] :Type 2 diabetes mellitus with hemoglobin A1c goal of less than 8.0% ([facility]) USE TO TEST BLOOD SUGAR ONCE A DAY DIRECTED 100 Each 1 10/30/2023 5 Active Amitriptyline HCl 10 MG Oral Tablet (Elavil)Indications: Insomnia, unspecified type take one tablet by mouth at bedtime 100 Tablet 1 11/01/2023 Active Empagliflozin 10 MG Oral Tablet (Jardiance)Indicatio ns:Type 2 diabetes mellitus with hemoglobin A1c goal of less than 8.0% ([facility]) Take 1 Tablet by mouth in [...] as of this encounter (statuses as of 02/01/2024) Active Problems Problem Noted Date Diagnosed Date [...] as of this encounter (statuses as of 02/01/2024) Resolved Problems Problem Noted Date Diagnosed Date [...] as of this encounter (statuses as of 02/01/2024) Immunizations Name Administration Dates Next Due COVID-19 mRNA, LNP-s, No Pre serve, 2-Dose Series (Xray Imatek) 03/25/2021,08/27/2020,08/06/2020 COVID-19, MRNA-LNP, 23-24, P F, 30 MCG/0.3 mL, 12 YRS AND ABOVE, IM ([facility] 06/14/2023 Covid-19, Mrna, Lnp-s, Pf, B ivalent, 30 Mcg, IM, 12 yrs and above (Xray Im[employer]k) 04/28/2022 H1N1 2009 Influenza, IM 05/15/2009 Pneumococcal [...] encounter Miscellaneous Notes * Telephone Encounter - Rakesh John LPN - 02/01/2024 4:13 PM EDT Faxed note and Zio report to [facility] ED. Called and gave a report to Mayda charge nurse at [facility]. ----- Message from Enrico De La Torre sent at 02/01/2024 4:12 PM EDT ----- Patient called personally to discuss Zio monitor findings. Notes having ongoing episodes, the worseone occurred this morning lasting almost 2 minute in duration. Recommend hospitalization, electrophysiology consultation, consideration for permanent pacemaker implantation. Significant other Alejo As child will be transporting. The number listed on the patient's chart is actually for her adult child Lluvia Ochoa who is POA; she is currently salmon fishing in [place]. The patients home telephone numberis [phone]. Alejo's cell phone number is [phone]. documented in this encounter Plan of Treatment Upcoming Encounters Date Type Department Care Team (Late st Contact Info) Description 02/15/2024 2:30 PM EDT Imaging Radiology [address] [place] [address] 03/01/2024 2:30 PM EDT Office Visit Vascular Surgery, [facility] [address] [facility] [place] [address] Femi Urbano MD [address] [place] [address] 06/09/2024 3:30 PM EST Office Visit Nephrology [address] [place] [address] Lissa Owens PA-C [address] [place] [address] 06/20/2024 2:00 PM EST Office Visit Cardiology [address] [place] [address] Enrico De La Torre PA-C [address] [place] [address] 06/26/2024 1:40 PM EST Office Visit Family Medicine [address] [place] [phone] Christin Welch PA-C [address] [place] [address] [place] [address] 08/29/2024 3:00 PM EDT Nurse Only Ancillary [address] [place] [address] [place], Nurse Annual Wellness [address] [place] [address] [place] [address] Health Maintenance Due Date Last Done Comments Alpha-1 Antitrypsin 1967 Sigmoidoscopy 1994 Fecal Occult Blood Test 11/06/2006 11/06/2005 DTap/Tdap Vaccines (2 - Td or Tdap) 10/25/2017 10/26/2007 Colonoscopy 01/24/2019 01/24/2018, 09/01, 08/11/2007, Additional history exists Colorectal Cancer Screening 01/24/2019 Zoster Vaccines (3 of 3) 03/10/2019 01/13/2019, 03/03 CKD PHOS USE SMARTSET 68615 12/28/201912/02, 12/25/2018, 12/24/2018, Additional history exists Cologuard 11/04/2020 11/04/2017 Mammogram 11/19/2023 11/18/2022, 07/0 08/2022, 11/04/2022, Additional history exists COVID-19 Vaccine ( season) 2024 06/14/2023, 04/28/2022, 03/25/2021, Additional history exists Influenza Vaccine (FLU shot) (#1) 2024 01/20/2022, 01/20/2022, 02/06/2021, Additional history exists Diabetic Eye Exam 02/23/2024 02/22/2023, , 07/02/2021, Additional history exists CKD HGB USE SMARTSET 75314 05/12/202405/12, 05/12/2023, 09/24/2021, Additional history exists HbA1c [...] filedocumented as of this encounter Care Teams Film Splicer Relationship Specialty Start Date End Date Daysi Pham MD [address] [place] [address] [place] [address] PCP - General Family Medicine 07/01/17 documented as of this encounter
--- OUTSIDE RECORDS SUMMARY | 2024-06-26 22:31 | External Medical Summary | Summary of Care ---
Author Name Unknown Organization [facility] Address [address] [place] [address] Phone [phone] Care Team Providers Care Sheriffs Name Role Phone Daysi Pham MD Primary Care Provide r Encounter Details Date Type Department Care Team (Late st Contact Info) Description 02/04/2024 Population Health External Data Unspecified Department Allergies Active Allergy Reactions Criticality Noted Date Comments Amoxicillin Rash 11/19/2011 Levofloxacin Other (Please comment) 11/13/2013 Weakness, lightheadedness, nausea Niacin Er 01/30/2010 Burned throat. Prednisone 09/03/2012 Blood pressure went up. Bupropion Hcl 01/30/2010 documented as of this encounter (statuses as of 02/04/2024) Medications Medication Sig Dispensed Refills Start Date [...] daily . 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 May repeat 3 times. If chest pain continues, call 911. 25 Tab 1 01/31/2019 Active Wheat Dextrin (BENEFIBER) powderIndications:[employer] Take by mouth . 1 teaspoon [...] instructions reported), Indications: allergies, Reported on 08/21/2022 AlphaStripeTouch Verio w/Device KitIndications:Type 2 diabetes mellitus with hemoglobin A1c goal of less than 8.0% ([facility]) Use once a day Dx: E11.9 1 [...] 90 Tablet 3 02/26/2023 4 Active Ipratropium [place] 0.03 % Nasal Solution (Atrovent)Indication s:Rhinorrhea ADMINISTER 2 SPRAYS INTO EACH NOSTRIL 4 TIMES A DAY NEEDED FOR RHINITIS. FOR RUNNY NOSE 90 mL 1 03/15/2023 Active Ipratropium-Albutero l 20-100 MCG/ACT Inhalation Aerosol Solution (Combivent Respimat)Indications :COPD, group B, by GOLD 2017 classification ([facility]) INHALE 1 PUFF BY MOUTH IN THE [...] 3 10/18/2023 5 Active OneTouch Delica Plus [id number] :Type 2 diabetes mellitus with hemoglobin A1c [...] as of this encounter (statuses as of 02/04/2024) Active Problems Problem Noted Date Diagnosed Date [...] as of this encounter (statuses as of 02/04/2024) Resolved Problems Problem Noted Date Diagnosed Date [...] as of this encounter (statuses as of 02/04/2024) Immunizations Name Administration Dates Next Due COVID-19 mRNA, LNP-s, No Pre serve, 2-Dose Series (Black coin) 03/25/2021,08/27/2020,08/06/2020 COVID-19, MRNA-LNP, 23-24, P F, 30 MCG/0.3 mL, 12 YRS AND ABOVE, IM ([employer]) 06/14/2023 Covid-19, Mrna, Lnp-s, Pf, B ivalent, [...] Description 02/15/2024 2:30 PM EDT Imaging Radiology [address] [place] [address] 03/01/2024 2:30 PM EDT Office Visit Vascular Surgery, [facility] [address] [place] [address] Femi Urbano MD [address] [place] [address] 06/09/2024 3:30 PM EST Office Visit Nephrology [address] [place] [address] Lissa Owens PA-C [facility] [place] [address] 06/20/2024 2:00 PM EST Office Visit Cardiology [address] [place] [address] Enrico De La Torre PA-C [address] [address] 06/26/2024 1:40 PM EST Office Visit Family Medicine [address] [place] [phone] Christin Welch PA-C [address] [place] [address] [place] [address] 08/29/2024 3:00 PM EDT Nurse Only Ancillary [place] [place] [address] [place], Nurse Annual [address] [place] [address] Health Maintenance Due Date Last Done Comments Alpha-1 Antitrypsin 1967 Sigmoidoscopy 1994 Fecal Occult Blood Test 11/06/2006 11/06/2005 DTap/Tdap Vaccines (2 - Td or Tdap) 10/25/2017 10/26/2007 Colonoscopy 01/24/2019 01/24/2018, 09/01, 08/11/2007, Additional history exists Colorectal Cancer Screening 01/24/2019 Zoster Vaccines (3 of 3) 03/10/2019 01/13/2019, 03/03 CKD PHOS USE SMARTSET 02436 12/28/201912/02, 12/25/2018, 12/24/2018, Additional history exists Cologuard 11/04/2020 11/04/2017 Mammogram 11/19/2023 11/18/2022, 08/2022, 11/04/2022, Additional history exists COVID-19 Vaccine ( season) 2024 06/14/2023, 04/28/2022, 03/25/2021, Additional history exists Influenza Vaccine (FLU shot) (#1) 2024 01/20/2022, 01/20/2022, 02/06/2021, Additional history exists Diabetic Eye Exam 02/23/2024 02/22/2023, , 07/02/2021, Additional history exists CKD HGB USE SMARTSET 52790 05/12/202405/12, 05/12/2023, 09/24/2021, Additional history exists HbA1c [...] filedocumented as of this encounter Care Teams Sheriffs Relationship Specialty Start Date End Date Daysi Pham MD [address] [place] [address] [place] [address] PCP - General Family Medicine 07/01/17 documented as of this encounter
--- OUTSIDE RECORDS SUMMARY | 2024-06-26 22:31 | External Medical Summary | Summary of Care ---
Author Name Unknown Organization [facility] Address [address] [place] [address] Phone [phone] Care Team Providers Care Slumber Room Attendant Name Role Phone Daysi Pham MD Primary Care Provide r Reason for Visit * Reason Comments Medication Refill Encounter Details Date Type Department Care Team (Late st Contact Info) Description 02/07/2024 Refill Family Medicine [address] [phone] Daysi Pham MD [address] [place] [address] [place] [id number] Gastroesophageal reflux disease without esophagitis Allergies Active Allergy Reactions Criticality Noted Date Comments Amoxicillin Rash 11/19/2011 Levofloxacin Other (Please comment) 11/13/2013 Weakness, lightheadedness, nausea Niacin Er 01/30/2010 Burned throat. Prednisone 09/03/2012 Blood pressure went up. Bupropion Hcl 01/30/2010 documented as of this encounter (statuses as of 02/08/2024) Medications Medication Sig Dispensed Refills Start Date End Date Status VITAMIN B COMPLEX PO CAPSIndications:sup plementation Take by mouth 1 Capsule daily . Active CO Q 10 100 MG PO CAPSIndications:leg pain Take by mouth 100 mg daily . Active ASPIRIN 81 MG PO TABSIndications:RevoLazea Punchd Take 1 Tablet by mouth in the morning. Active oxygen GAS Use 2 L/min(Oxygen) as directed at bedtime. 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 Duonebs, 3 ml's every 6 hours as needed 1 Device 7 Active Multiple Vitamins-Minerals (MULTIVITAMIN WOMEN) TABSIndications:gen eral Collective Take by mouth 1 Tablet daily . Active nitroglycerin (NITROSTAT) 0.4 MG SUBLIndications:Chr onic coronary artery disease Place 1 Tab under the tongue as needed for Pain, Chest. May repeat 3 times. If chest pain continues, call 911. 25 Tab 1 9 Active Wheat Dextrin (BENEFIBER) powderIndications:g [facility] Take by mouth . 1 teaspoon [...] Tablet 3 3 02/29/20 24 Active Ipratropium [place] 0.03 % Nasal Solution (Atrovent)Indicatio ns:Rhinorrhea ADMINISTER [...] 4 10/18/19 25 Active OneTouch Delica Plus [id number] s:Type 2 diabetes mellitus with hemoglobin A1c [...] of less than 8.0% ([facility]) Take 1 Tablet by mouth in the [...] evening meals. 200 Capsule 1 4 Active Esomeprazole Magnesium 40 MG Oral Capsule Delayed ReleaseIndications: Gastroesophageal reflux disease without esophagitis Take 1 Capsule by mouth 2 times a day with morning and evening meals. 200 Capsule 1 4 02/07/20 24 Discontinu ed(Refill) documented as of this encounter (statuses as of 02/08/2024) Active Problems Problem Noted Date Diagnosed Date [...] as of this encounter (statuses as of 02/08/2024) Resolved Problems Problem Noted Date Diagnosed Date [...] as of this encounter (statuses as of 02/08/2024) Immunizations Name Administration Dates Next Due COVID-19 mRNA, LNP-s, No Pre serve, 2-Dose Series (Dataminr) 03/25/2021,08/27/2020,08/06/2020 COVID-19, MRNA-LNP, 23-24, P F, 30 MCG/0.3 mL, 12 YRS AND ABOVE, IM ([employer]Comir[employer]) 06/14/2023 Covid-19, Mrna, Lnp-s, Pf, B ivalent, 30 Mcg, IM, 12 yrs and above (Dataminr) 04/28/2022 H1N1 2009 Influenza, IM 05/15/2009 Pneumococcal [...] Notes * Telephone Encounter - Surekha Adkins [facility] - 02/08/2024 2:08 PM EDTSigned Prescriptions: Disp Refills Esomeprazole Magnesium 40 MG Oral Capsule *200 Ca*1 Sig: Take 1 Capsule by mouth 2 times a day with morning and evening meals. Authorizing Provider: DAYSI PHAM Ordering User: SUREKHA ADKINS * Telephone Encounter - Magan Welch, radiology asst - 02/08/2024 1:00 PM EDT Did you pend patient's preferred pharmacy and medication before forwarding?yes Pharmacy: [email or web address] Pending Prescriptions: Disp Refills Esomeprazole Magnesium 40 MG Oral Capsule*200 Ca*1 Sig: Take 1 Capsule by mouth 2 times a day with morning and evening meals. Last Visit: 12/06/2023 (in office), Visit date not found (telemedicine) Next Visit: 06/26/2024 If no future appointments scheduled, and last appointment is greater than a year ago, please schedule patient for a follow-up appointment Last date the medication was ordered: 06/14/23 Is this request for a controlled substance?No [...] 02:25 AM HGBA1C 6.1 12/29/2016 08:27 AM Thank you, Magan Welch, [facility] Cattle Farmer [facility] 02/08/2024, 1:00 PM documented in this encounter Plan of Treatment Upcoming Encounters Date Type Department Care Team (Late st Contact Info) Description 02/15/2024 2:30 PM EDT Imaging Radiology [address] [place] [address] 02/21/2024 2:00 PM EDT Cardiac Studies Cardiology, [facility] [address] [facility] [place] [address] [facility] 132 [facility] [place] [address] 03/01/2024 2:30 PM EDT Office Visit Vascular Surgery, [facility] 132 [facility] [place] [address] Femi Urbano MD [address] [place], [place] [phone] 06/09/2024 3:30 PM EST Office Visit Nephrology [address] [place] [address] Lissa Owens PA-C [address] [place] [address] 06/20/2024 2:00 PM EST Office Visit Cardiology [address] [place] [address] Enrico De La Torre PA-C 132 [facility] [place] [address] 06/26/2024 1:40 PM EST Office Visit Family Medicine [address] [place] [phone] Christin Welch PA-C [address] [place] [address] [place] [address] 08/29/2024 3:00 PM EDT Nurse Only Ancillary [address] [place] [address] [place], Nurse Annual Wellness [address] [place] [address] [place] [address] Health Maintenance Due Date Last Done Comments Alpha-1 Antitrypsin 1967 Sigmoidoscopy 1994 Fecal Occult Blood Test 11/06/2006 11/06/2005 DTap/Tdap Vaccines (2 - Td or Tdap) 10/25/2017 10/26/2007 Colonoscopy 01/24/2019 01/24/2018, 09/01, 08/11/2007, Additional history exists Colorectal Cancer Screening 01/24/2019 Zoster Vaccines (3 of 3) 03/10/2019 01/13/2019, 03/03 CKD PHOS USE SMARTSET 61007 12/28/201912/02, 12/25/2018, 12/24/2018, Additional history exists Cologuard 11/04/2020 11/04/2017 Mammogram 11/19/2023 11/18/2022, 07/08/2022, 11/04/2022, Additional history exists COVID-19 Vaccine ( season) 2024 06/14/2023, 04/28/2022, 03/25/2021, Additional history exists Influenza Vaccine (FLU shot) (#1) 2024 01/20/2022, 01/20/2022, 02/06/2021, Additional history exists Diabetic Eye Exam 02/23/2024 02/22/2023, , 07/02/2021, Additional history exists CKD HGB USE SMARTSET 79938 05/12/202405/12, 05/12/2023, 09/24/2021, Additional history exists HbA1c [...] Visit Diagnoses Diagnosis Gastroesophageal reflux disease without esophagitis Esophageal reflux Screening mammogram for breast cancer documented in this encounter Care Teams Slumber Room Attendant Relationship Specialty Start Date End Date Daysi Pham MD [address] [place] [address] [place] [phone] PCP - General Family Medicine 07/01/17 documented as of this encounter
--- OUTSIDE RECORDS SUMMARY | 2024-06-26 22:31 | External Medical Summary | Summary of Care ---
Author Name Unknown Organization [facility] Address [address] [place] [address] Phone [phone] Care Team Providers Care Mineral Surveyor Name Role Phone Daysi Pham MD Primary Care Provide r Encounter Details Date Type Department Care Team (Late st Contact Info) Description 02/07/2024 Orders Only Cardiology, [place] [address] [place] [phone] Regine Barcenas, [address] [facility] [place] [address] Allergies Active Allergy Reactions Criticality Noted Date [...] Device 05/21/2016 Active Multiple Vitamins-Minerals (MULTIVITAMIN WOMEN) TABSIndications:Certona Take by mouth 1 Tablet daily . Active nitroglycerin (NITROSTAT) 0.4 MG SUBLIndications:Broker lev coronary artery disease Place 1 Tab under the tongue as needed for Pain, Chest. May repeat 3 times. If chest pain continues, call 911. 65 Tab 1 01/31/2019 Active Wheat Dextrin (BENEFIBER) powderIndications:[employer] Take by mouth . 1 teaspoon daily [...] A1c goal of less than 8.0% ([facility]) Use once a day [...] 90 Tablet 3 02/26/2023 4 Active Ipratropium [place] 0.03 % Nasal Solution (Atrovent)Indication s:Rhinorrhea ADMINISTER 2 SPRAYS INTO EACH NOSTRIL 4 TIMES A DAY NEEDED FOR RHINITIS. FOR RUNNY NOSE 90 mL 1 03/15/2023 Active Ipratropium-Albutero l 20-100 MCG/ACT Inhalation Aerosol Solution (Combivent Respimat)Indications :COPD, group B, by GOLD 2017 classification ([facility]) INHALE 1 PUFF BY [...] A1c goal of less than 8.0% ([facility]) USE TO TEST BLOOD [...] 3 10/18/2023 5 Active OneTouch Delica Plus [id number] :Type 2 diabetes mellitus with hemoglobin A1c goal of less than 8.0% ([facility]) USE TO TEST BLOOD SUGAR ONCE A DAY DIRECTED 100 Each 1 10/30/2023 5 Active Amitriptyline HCl 10 MG Oral Tablet (Elavil)Indications: Insomnia, unspecified type take one tablet by mouth at bedtime 100 Tablet 1 11/01/2023 Active Empagliflozin 10 MG Oral Tablet (Jardiance)Indicatio ns:Type 2 diabetes mellitus with hemoglobin A1c goal of less than 8.0% ([facility]) Take 1 Tablet by [...] mRNA, LNP-s, No Pre serve, 2-Dose Series (Play[employer]z) 03/25/2021,08/27/2020,08/06/2020 COVID-19, MRNA-LNP, 23-24, P F, 30 MCG/0.3 mL, 12 YRS AND ABOVE, IM ([employer]) 06/14/2023 Covid-19, Mrna, Lnp-s, Pf, B ivalent, [...] Description 02/15/2024 2:30 PM EDT Imaging Radiology [address] [place] [address] 02/21/2024 2:00 PM EDT Cardiac Studies Cardiology, [facility] [address] [facility] [place] [address] [place], Pac[facility] 132 [facility] [place] [address] 03/01/2024 2:30 PM EDT Office Visit Vascular Surgery, [facility] [address] [facility] [place] [address] Femi Urbano MD [address] [facility] [place] [phone] 06/09/2024 3:30 PM EST Office Visit Nephrology [address] [place] [address] Lissa Owens PA-C [address] [place] [address] 06/20/2024 2:00 PM EST Office Visit Cardiology [address] [place] [address] Enrico De La Torre PA-C [address] [place] [address] 06/26/2024 1:40 PM EST Office Visit Family Medicine [address] [place] [phone] Christin Welch PA-C [address] [place] [address] [place] [address] 08/29/2024 3:00 PM EDT Nurse Only Ancillary [address] [place] [address] [place], Nurse Annual Wellness [address] [place] [address] [place] [address] Health Maintenance Due Date Last Done Comments Alpha-1 Antitrypsin 1967 Sigmoidoscopy 1994 Fecal Occult Blood Test 11/06/2006 11/06/2005 DTap/Tdap Vaccines (2 - Td or Tdap) 10/25/2017 10/26/2007 Colonoscopy 01/24/2019 01/24/2018, 09/01, 08/11/2007, Additional history exists Colorectal Cancer Screening 01/24/2019 Zoster Vaccines (3 of 3) 03/10/2019 01/13/2019, 03/03 CKD PHOS USE SMARTSET 09345 12/28/201912/02, 12/25/2018, 12/24/2018, Additional history exists Cologuard 11/04/2020 11/04/2017 Mammogram 11/19/2023 11/18/2022, 07/0 08/2022, 11/04/2022, Additional history exists COVID-19 Vaccine ( season) 2024 06/14/2023, 04/28/2022, 03/25/2021, Additional history exists Influenza Vaccine (FLU shot) (#1) 2024 01/20/2022, 01/20/2022, 02/06/2021, Additional history exists Diabetic Eye Exam 02/23/2024 02/22/2023, , 07/02/2021, Additional history exists CKD HGB USE SMARTSET 59616 05/12/202405/12, 05/12/2023, 09/24/2021, Additional history exists HbA1c [...] Procedure Name Priority Date/Time Associated Diagnosis Comments XR CHEST 1 VIEW Routine 02/02/2024 documented in this encounter Results * XR CHEST 1 VIEW (02/02/2024) Anatomical Region Laterality Modality Chest Other 02/02/2024 Regine Barcenas DO RADIOLOGY (RAD GENERAL) documented in this encounter Care Teams Mineral Surveyor Relationship Specialty Start Date End Date Daysi Pham MD [address] [place] [address] [place] [phone] PCP - General Family Medicine 07/01/17 documented as of this encounter
--- OUTSIDE RECORDS SUMMARY | 2024-06-26 22:31 | External Medical Summary | Summary of Care ---
Author Name Unknown Organization [facility] Address [address] [place] [address] Phone [phone] Care Team Providers Care Joy Operator Name Role Phone Dayis Pham MD Primary Care Provide r Reason for Visit * Reason Onset Date Comments Appointment 02/03/2024 Encounter Details Date Type Department Care Team (Late st Contact Info) Description 02/03/2024 Telephone Cardiology, [place] [address] [facility] [place] [address] Regine Barcenas, [address] [place] [address] Appointment Allergies Active Allergy Reactions Criticality Noted [...] daily . Active ASPIRIN 81 MG PO TABSIndications:R&L Take 1 Tablet by mouth in the morning. Active oxygen GAS Use 2 L/min(Oxygen) as directed at bedtime. Active Respiratory Therapy Supplies (NEBULIZER) DEVIIndications:COPD , moderate ([facility]) Use as directed. Duonebs, 3 ml's every 6 hours as needed 1 Device 05/21/2016 Active Multiple Vitamins-Minerals (MULTIVITAMIN WOMEN) TABSIndications:Pressly Take by mouth 1 Tablet daily . 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 May repeat 3 times. If chest pain continues, call 911. 25 Tab 1 01/31/2019 Active Wheat Dextrin (BENEFIBER) powderIndications:Roomish Take by mouth . 1 teaspoon daily [...] 90 Tablet 3 02/26/2023 4 Active Ipratropium [place] 0.03 % Nasal Solution (Atrovent)Indication s:Rhinorrhea ADMINISTER [...] 3 10/18/2023 5 Active OneTouch Delica Plus [id number] :Type 2 diabetes mellitus with hemoglobin A1c [...] mRNA, LNP-s, No Pre serve, 2-Dose Series (Runscope) 03/25/2021,08/27/2020,08/06/2020 COVID-19, MRNA-LNP, 23-24, P F, 30 MCG/0.3 mL, 12 YRS AND ABOVE, IM ([facility] 06/14/2023 Covid-19, Mrna, Lnp-s, Pf, B ivalent, 30 Mcg, IM, 12 yrs and above (Runscope) 04/28/2022 H1N1 2009 Influenza, IM 05/15/2009 Pneumococcal [...] encounter Miscellaneous Notes * Telephone Encounter - Jose Masters OSA - 02/04/2024 11:59 AM EDT Daughter called back and her mother chose an appt on: [facility] at 2:00 PM (30 min)Arrive by 1:45 PM Wednesday February 21, 2024 Appointment Provider:[facility] in CARDIOLOGY [facility] * Telephone Encounter - Jose Masters OSA - 02/04/2024 10:06 AM EDT Called and spoke with patients daughter, she will call me back for the appt. * Telephone Encounter - Mckenna Kelly NRCMA - 02/03/2024 4:55 PM EDT This pt ws inpt and has a pacemaker with Dr Barcenas on 02/02/2024. Pt needs a 1 week wound check in the device clinic at . Please scheduled appt and call pt to make aware. Thanks Olga documented in this encounter Plan of Treatment Upcoming Encounters Date Type Department Care Team (Late st Contact Info) Description 02/15/2024 2:30 PM EDT Imaging Radiology [address] [place] [address] 02/21/2024 2:00 PM EDT Cardiac Studies Cardiology, [facility] [address] [facility] [place] [address] [place], [facility] [address] [facility] [place] [address] 03/01/2024 2:30 PM EDT Office Visit Vascular Surgery, [facility] [address] [facility] [place] [address] Femi Urbano MD [address] [place] [address] 06/09/2024 3:30 PM EST Office Visit Nephrology [address] [place] [address] Lissa Owens PA-C [address] [place] [address] 06/20/2024 2:00 PM EST Office Visit Cardiology [address] [place] [address] Enrico De La Torre PA-C [address] [place] [address] 06/26/2024 1:40 PM EST Office Visit Family Medicine [address] [place] [phone] Christin Welch PA-C [address] [place] [address] [place] [address] 08/29/2024 3:00 PM EDT Nurse Only Ancillary [place] Santiago[address] [place] [address] Zabrina, Nurse [address] [place] [address] Health Maintenance Due Date Last Done Comments Alpha-1 Antitrypsin 1967 Sigmoidoscopy 1994 Fecal Occult Blood Test 11/06/2006 11/06/2005 DTap/Tdap Vaccines (2 - Td or Tdap) 10/25/2017 10/26/2007 Colonoscopy 01/24/2019 01/24/2018, 09/01, 08/11/2007, Additional history exists Colorectal Cancer Screening 01/24/2019 Zoster Vaccines (3 of 3) 03/10/2019 01/13/2019, 03/03 CKD PHOS USE SMARTSET 59858 12/28/201912/02, 12/25/2018, 12/24/2018, Additional history exists Cologuard 11/04/2020 11/04/2017 Mammogram 11/19/2023 11/18/2022, 08/2022, 11/04/2022, Additional history exists COVID-19 Vaccine ( season) 2024 06/14/2023, 04/28/2022, 03/25/2021, Additional history exists Influenza Vaccine (FLU shot) (#1) 2024 01/20/2022, 01/20/2022, 02/06/2021, Additional history exists Diabetic Eye Exam 02/23/2024 02/22/2023, , 07/02/2021, Additional history exists CKD HGB USE SMARTSET 61358 05/12/202405/12, 05/12/2023, 09/24/2021, Additional history exists HbA1c [...] filedocumented as of this encounter Care Teams Joy Operator Relationship Specialty Start Date End Date Daysi Pham MD [address] [place] [address] [place] [address] PCP - General Family Medicine 07/01/17 documented as of this encounter
--- OUTSIDE RECORDS SUMMARY | 2024-06-26 22:31 | External Medical Summary | Summary of Care ---
Author Name Unknown Organization [facility] Address [address] [place] [address] Phone [phone] Care Team Providers Care Shingle Catcher Name Role Phone Daysi Pham MD Primary Care Provide r Encounter Details Date Type Department Care Team (Late st Contact Info) Description 02/09/2024 Population Health External Data Unspecified Department Allergies Active Allergy Reactions Criticality Noted Date Comments Amoxicillin Rash 11/19/2011 Levofloxacin Other (Please comment) 11/13/2013 Weakness, lightheadedness, nausea Niacin Er 01/30/2010 Burned throat. Prednisone 09/03/2012 Blood pressure went up. Bupropion Hcl 01/30/2010 documented as of this encounter (statuses as of 02/09/2024) Medications Medication Sig Dispensed Refills Start Date [...] daily . Active nitroglycerin (NITROSTAT) 0.4 MG SUBLIndications:Well Driller lev coronary artery disease Place 1 Tab under the tongue as needed for Pain, Chest. May repeat 3 times. If chest pain continues, call 911. 25 Tab 1 01/31/2019 Active Wheat Dextrin (BENEFIBER) powderIndications:[employer]. Take by mouth . 1 teaspoon daily [...] instructions reported), Indications: allergies, Reported on 08/21/2022 Urgent CareerTouch Verio w/Device KitIndications:Type 2 diabetes mellitus with hemoglobin A1c goal of less than 8.0% ([facility]) Use once a day Dx: [...] 90 Tablet 3 02/26/2023 4 Active Ipratropium [place] 0.03 % Nasal Solution (Atrovent)Indication s:Rhinorrhea ADMINISTER 2 SPRAYS INTO EACH NOSTRIL 4 TIMES A DAY NEEDED FOR RHINITIS. FOR RUNNY NOSE 90 mL 1 03/15/2023 Active Ipratropium-Albutero l 20-100 MCG/ACT Inhalation Aerosol Solution (Combivent Respimat)Indications :COPD, group B, by GOLD 2017 classification ([facility]) INHALE 1 PUFF BY MOUTH [...] 3 10/18/2023 5 Active OneTouch Delica Plus [id number] :Type 2 diabetes mellitus with hemoglobin A1c [...] as of this encounter (statuses as of 02/09/2024) Active Problems Problem Noted Date Diagnosed Date [...] as of this encounter (statuses as of 02/09/2024) Resolved Problems Problem Noted Date Diagnosed Date [...] as of this encounter (statuses as of 02/09/2024) Immunizations Name Administration Dates Next Due COVID-19 mRNA, LNP-s, No Pre serve, 2-Dose Series (Acompli) 03/25/2021,08/27/2020,08/06/2020 COVID-19, MRNA-LNP, 23-24, P F, 30 MCG/0.3 mL, 12 YRS AND ABOVE, IM ([employer]) 06/14/2023 Covid-19, Mrna, Lnp-s, Pf, B ivalent, [...] Team (Late st Contact Info) Description 02/21/2024 2:00 PM EDT Cardiac Studies Cardiology, [facility] [address] [facility] [place] [address] [facility] [address] [facility] [place] [address] 03/01/2024 2:30 PM EDT Office Visit Vascular Surgery, [facility] [address] [facility] [place] [address] Femi Urbano MD [address] [place], [place] [id number] 03/10/2024 2:30 PM EST Office Visit Nephrology [address] [place] [address] Lissa Owens PA-C [address] [place] [address] 06/20/2024 2:00 PM EST Office Visit Cardiology [address] [place] [address] Enrico De La Torre PA-C [address] [facility] [place] [address] 06/26/2024 1:40 PM EST Office Visit Family Medicine [address] [place] [phone] Christin Welch PA-C [address] [place] [address] [place] [address] 08/29/2024 3:00 PM EDT Nurse Only Ancillary [address] [place] [address] [place], Nurse [facility] [address] [place] [address] [place] [address] Health Maintenance Due Date Last Done Comments Alpha-1 Antitrypsin 1967 Sigmoidoscopy 1994 Fecal Occult Blood Test 11/06/2006 11/06/2005 DTap/Tdap Vaccines (2 - Td or Tdap) 10/25/2017 10/26/2007 Colonoscopy 01/24/2019 01/24/2018, 09/01, 08/11/2007, Additional history exists Colorectal Cancer Screening 01/24/2019 Zoster Vaccines (3 of 3) 03/10/2019 01/13/2019, 03/03 CKD PHOS USE SMARTSET 22265 12/28/201912/02, 12/25/2018, 12/24/2018, Additional history exists Cologuard 11/04/2020 11/04/2017 Mammogram 11/19/2023 11/18/2022, 07/0 08/2022, 11/04/2022, Additional history exists COVID-19 Vaccine ( season) 2024 06/14/2023, 04/28/2022, 03/25/2021, Additional history exists Influenza Vaccine (FLU shot) (#1) 2024 01/20/2022, 01/20/2022, 02/06/2021, Additional history exists Diabetic Eye Exam 02/23/2024 02/22/2023, , 07/02/2021, Additional history exists CKD HGB USE SMARTSET 65353 05/12/202405/12, 05/12/2023, 09/24/2021, Additional history exists HbA1c [...] filedocumented as of this encounter Care Teams Shingle Catcher Relationship Specialty Start Date End Date Daysi Pham MD [address] [place] [address] [place] [address] PCP - General Family Medicine 07/01/17 documented as of this encounter
[2024-06-26 22:46] LABS: Base Excess VBG 10.2 mEq/L; HCO3 VBG 38 mmol/L; Oxygen Saturation VBG 61.6 %; PCO2 VBG 64 mmHg (38-50); PO2 VBG 38 mmHg; pH VBG 7.38 (7.36-7.41)
[2024-06-26] MEDS: OPTIRAY 320 100ml IV ONE (22:54)
[2024-06-26] MEDS: ACETAMINOPHEN 1,000 MG/100 ML VIAL IV STA (23:17)
--- NOTE | 2024-06-26 23:30 | CT Scan Report ---
Exam(s): CT ABDOMEN + PELVIS With Contrast IV Amt: 93 ml optiray 320 EXAM: CT Abdomen and Pelvis With Intravenous Contrast CLINICAL HISTORY: Reason for exam: r abd pain, noac. TECHNIQUE: Axial computed tomography images of the abdomen and pelvis with intravenous contrast. CTDI is 28.14 mGy and DLP is 1415.4 mGy-cm. Automated exposure control was utilized for the study. A dose lowering technique was utilized adhering to the principles of ALARA. CONTRAST: Patient received 93 ml optiray 320 of IV contrast COMPARISON: No relevant prior studies available. FINDINGS: Pleural space: Moderate bilateral pleural effusions and consolidative atelectasis at the lung bases. ABDOMEN: Liver: Unremarkable. Gallbladder and bile ducts: Cholecystectomy. Pancreas: Unremarkable. Spleen: Unremarkable. Adrenals: Unremarkable. Kidneys and ureters: Atrophic right kidney. Left kidney is unremarkable in appearance. Stomach and bowel: Sigmoid diverticulosis without acute diverticulitis. PELVIS: Appendix: No findings to suggest acute appendicitis. Bladder: Unremarkable. Reproductive: Unremarkable as visualized. ABDOMEN and PELVIS: Intraperitoneal space: Unremarkable. No free air. No significant fluid collection. Bones/joints: No acute fracture. Soft tissues: Unremarkable. Vasculature: Advanced atherosclerotic calcifications. Severe stenosis in the SMA, renal arteries, and bilateral common iliac arteries. Lymph nodes: Unremarkable. IMPRESSION: 1. No acute abnormality within the abdomen or pelvis. 2. Advanced atherosclerotic calcifications. Severe stenosis in the SMA, renal arteries, and bilateral common iliac arteries. 3. Moderate bilateral pleural effusions and consolidative atelectasis at the lung bases. Electronically signed by: Thierno Meehan MD 06/26/24 23:29 PM
[2024-06-27] MEDS: ACETAMINOPHEN 325 MG TAB PO PRN (02:25)
[2024-06-27 06:29] LABS: Basophils # (auto) 0.05 K/uL (0.00-0.20); Basophils % (auto) 0.6 %; Eosinophils # (auto) 0.24 K/uL (0.00-0.50); Eosinophils % (auto) 2.9 %; Hematocrit (blood only) 31.3 % (37.0-47.0); Hemoglobin 9.6 g/dl (12.0-16.0); Immature Granulocytes # (auto) 0.04 K/uL (0.01-0.20); Immature Granulocytes % (auto) 0.5 %; Lymphocytes # (auto) 1.22 K/uL (1.20-3.40); Lymphocytes % (auto) 14.9 %; Mean Corpuscular Hemoglobin 28.2 pg (25.0-34.0); Mean Corpuscular Hgb Conc 30.7 g/dL (32.0-36.0); Mean Corpuscular Volume 92.1 fL (80.0-100.0); Mean Platelet Volume 10.4 fL (9.4-12.4); Monocytes # (auto) 0.74 K/uL (0.11-0.59); Neutrophils % (auto) 72.1 %; Platelet Count 207 K/uL (130-400); RDW Coefficient of Variation 16.5 % (11.5-14.5); RDW Standard Deviation 55.8 fL (36.4-46.3); White Blood Count 8.19 K/ul (4.8-10.8)
[2024-06-27 06:36] LABS: Albumin Globulin Ratio 1.3 (0.9-2); Albumin Level 3.2 gm/dl (3.4-5.0); BUN Creatinine Ratio 23.1 (10-20); Bilirubin,Total 0.4 mg/dl (0.2-1.0); Calcium 8.9 mg/dl (8.6-10.3); Creatinine Clr Calc Pharmacy 55.2 ml/min; Globulin 2.4 gm/dl (2.5-4.0); Total Protein 5.6 gm/dl (6.0-8.3)
[2024-06-27] MEDS: EMPAGLIFLOZIN 10 MG TAB PO SCH (09:32)
[2024-06-27] MEDS: ASPIRIN 81 MG ECTAB PO SCH (09:32)
[2024-06-27] MEDS: CHOLECALCIFEROL 25 MCG (1000 UNITS) TAB PO SCH (09:32)
[2024-06-27] MEDS: ISOSORBIDE MONO EXTENDED REL 30 MG TABCR PO SCH (09:33)
[2024-06-27] MEDS: MULTIVITAMIN TAB PO SCH (09:33)
--- NOTE | 2024-06-27 09:33 | Cardiology Consultation ---
Date of Consultation June 27, 2024 Assessment & Plan (1) Acute decompensated heart failure: (2) Pleural effusion: (3) Persistent atrial fibrillation: (4) ASCVD (arteriosclerotic cardiovascular disease): (5) Elevated troponin: (6) Syncope: (7) Tachy-maribel syndrome: (8) S/P cardiac pacemaker procedure: (9) CKD (chronic kidney disease), stage III: Plan Acute decompensated heart failure. Suspect systolic and diastolic etiology. Patient responding well to IV diuresis. Continue IV furosemide at 40 mg twice per day. Discontinue diltiazem. Refer for resting echocardiography. Maintain normokalemia and normomagnesemia. Patient will require loop diuretic therapy on discharge. Atrial fibrillation. Persistent since March 2024. Recommend rate control with metoprolol succinate. Continue anticoagulation with apixaban 5 mg twice per day. ASCVD. Minimal elevated troponin. Patient asymptomatic. Continue medical management. Severe diffuse peripheral arterial disease. Continue aspirin and statin. Avoid hypotension. Supervising Physician Co-Signing Physician Notes Patient was seen and personally examined. Full assessment and plan as outlined by advanced provider as above. Care and management discussed and personally endorsed. 74-year-old female admitted with acute decompensated systolic and diastolic heart failure responding nicely to IV furosemide we will continue and optimize medical therapies for heart failure, review echocardiogram Patient with severe vascular disease including bilateral carotid artery disease and aortic arch disease. Will need to avoid relative hypotension. Goal systolic blood pressures 130 or greater History of Present Illness Reason for Consultation: CHF, syncope Requesting Physician: EFREM Perez Attending Physician: Dr. Osvaldo Fernandes MD History of Present Illness Patient is a complex 74-year-old female who presented to the [facility] emergency room on June 26, 2024 with a chief complaint of acute on chronic dyspnea. Patient notes developing trouble breathing approximately 1 month ago, with worsening exertional dyspnea, orthopnea, and ? PND. Self titration of supplemental oxygen without perceived benefit. Patient describes having had 4 falls, 4 syncopal episodes. Patient notes "I think I had a couple more strokes. I have not felt good since they put me on that Diltiazem." No chest pain. No overt palpitations. EKG on presentation revealed atrial fibrillation with frequent ventricular paced complexes, ventricular rate 65 bpm. Chest x-ray revealed pulmonary vascular congestion with left greater than right pleural effusions. IV furosemide provided at 40 mg twice per day with significant diuresis noted over the past 24 hours, -3,530 mL thus far. Pre senting symptoms significantly improved with IV diuresis. Past Medical History: ASCVD with a chronic total RCA occlusion, 30% LCX stenosis, and luminal irregularities of all other vessels by 01/2006 cath at [facility]. Ischemic cardiomyopathy with past LVEF 40%. Carotid disease s/p bilateral CEA's with bilateral recurrence Acute left MCA stroke in December 2018 Past paroxysmal atrial fibrillation and now chronic atrial fibirllation Tachybradycardia syndrome status post February 02, [address] Barcenas - Pulse generator: CipioM Assurity MRI Model Number [id number] SN: [id number] - Right atrial lead: Larsen SJM Tendril STS SN: [id number] - Left bundle lead: Larsen SJM Tendril STS SN: [id number] PAD with L>R claudication with leg pain. Subclavian artery stenosis versus occlusion. Renal artery stenosis. SMA stenosis Lower extremity peripheral artery disease PSVT COPD. Severe nocturnal hypoxemia treated with supplemental oxygen therapy QHS Secondary polycythemia. Type II diabetes mellitus with neuropathy. Pulmonary nodules. Hypertension. Hyperlipidemia. GERD. Fatty liver Psoriasis Plantar fasciitis. Insomnia. Vertigo. Osteoarthritis. Diverticulosis IBS Past Surgical History: Bilateral carotid endarterectomies. Cholecystectomy. Tubal ligation. T/A as a child. Family History: Father: Lung CA, alcoholic, at 54. Mother: Uterine CA, pace maker. Brother: Throat CA. Brother: DC at 57. PGM: Lung cancer. Social History: See above. She started smoking at the age of 11. Quit in December 2018. No alcohol. No illegal drugs. Previously worked at [employer]. Allergies Allergy/AdvReac Type Severity Reaction Status Date / Time bupropion Allergy Intermediate ZYBAN-HIVES Verified 02/01/24 20:28 niacin Allergy Intermediate BURNED Verified 02/01/24 20:28 THROAT amoxicillin Allergy Mild Rash Verified 02/01/24 20:28 prednisone AdvReac Intermediate ELEVATES Verified 02/01/24 20:28 BLOOD PRESSURE levofloxacin AdvReac Mild Weakness Verified 02/01/24 20:28 Antihistamines - Alkylamine AdvReac BP goes up Verified 02/01/24 21:16 Antihistamines - Ethanolamine AdvReac BP goes up Verified 02/01/24 21:16 Antihistamines - AdvReac BP goes up Verified 02/01/24 21:16 Ethylenediamine Antihistamines - Piperazine AdvReac BP goes up Verified 02/01/24 21:16 Antihistamines - Piperidine AdvReac BP goes up Verified 02/01/24 21:16 Home Medications Medication Instructions Recorded Confirmed Type apixaban 5 mg tablet (Eliquis) 5 mg PO BID 01/31/22 06/26/24 History aspirin 81 mg tablet,delayed 81 mg PO DAILY 01/31/22 06/26/24 History release atorvastatin 80 mg tablet 80 mg PO PM 01/31/22 06/26/24 History cholecalciferol (vitamin D3) 25 25 mcg PO DAILY 01/31/22 06/26/24 History mcg (1,000 unit) tablet (Vitamin D3) coenzyme Q10 100 mg capsule 100 mg PO DAILY 01/31/22 06/26/24 History (CoQ-10) empagliflozin 10 mg tablet 10 mg PO DAILY 01/31/22 06/26/24 History (Jardiance) esomeprazole magnesium 40 mg 40 mg PO BID 01/31/22 06/26/24 History capsule,delayed release ipratropium 20 mcg-albuterol 100 1 puff inhalation QID PRN 01/31/22 06/26/24 History mcg/actuation mist for inhalation Shortness Of Breath Or Wheezing (Combivent Respimat) multivitamin 1 tab PO DAILY 01/31/22 06/26/24 History nitroglycerin 0.4 mg sublingual 0.4 mg sublingual DIRECTED PRN 01/31/22 06/26/24 History tablet (Nitrostat) Chest Pain peg 400-propylene glycol (PF) 0.4 1 drp OPB DIRECTED ##0 01/31/22 06/26/24 History %-0.3 % eye drops in a dropperette (Systane (PF)) vitamin B complex 1 tab PO DAILY 01/31/22 06/26/24 History amitriptyline 10 mg tablet 10 mg PO HS 11/26/23 06/26/24 History ipratropium bromide 21 mcg (0.03 2 spray intranasal QID PRN Nasal 11/26/23 06/26/24 History %) nasal spray Congestion isosorbide mononitrate 30 mg 30 mg PO QAM 11/26/23 06/26/24 History tablet,extended release 24 hr pregabalin 25 mg capsule 25 mg PO BID 11/26/23 06/26/24 History diltiazem HCl 120 mg 120 mg PO DAILY@1200 #30 caps 02/06/24 06/26/24 Rx capsule,extended release 24 hr (Cardizem CD) lisinopril 5 mg tablet 5 mg PO DAILY #30 tabs 02/06/24 06/26/24 Rx metoprolol succinate 25 mg 25 mg PO BID #60 tabs 02/06/24 06/26/24 Rx tablet,extended release 24 hr Patient History Medical History Diabetes mellitus, type 2 Peripheral vascular disease Osteoarthritis Irritable bowel syndrome Diverticulitis GERD (gastroesophageal reflux disease) Peripheral neuropathy BLE Stroke LUNAR STROKE 1994 Atrial fibrillation PAST HX/NO PROBLEMS Hypertension Hyperlipidemia On home oxygen therapy 2L NC HS ONLY Chronic obstructive pulmonary disease Surgical History History of bilateral tubal ligation History of colonoscopy History of cholecystectomy History of tooth extraction History of tonsillectomy History of adenoidectomy History of carotid endarterectomy LEFT/RT History of cardiac cath 2003/NO STENTS Family History Family/Other Family history of diabetes mellitus Brother Family history of esophageal cancer Social History Smoking Status: Unknown if ever smoked Tobacco Type: Cigarettes Cigarettes Per Day: 1 pack; Second Hand Exposure: No; Do You Dip or Chew Tobacco: No; Hx Alcohol Use: No Hx Substance Use: No Preferred Language: Portuguese Communication Ability: Effective Communication Ability Comment: Hx stroke- slurred speech 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 Otherwise as stated above, negative, or noncontributory. Physical Exam Physical Exam: General: NAD. HENT: Healing ecchymosis/excoriation over left temporal area Eyes: PER. Conjunctiva pink, sclera clear. Neck: + JVD. + Hepatojugular reflux. Bilateral carotid endarterectomy scars. Harsh bilateral carotid bruits. Heart: Irregularly irregular, heart rate in the 60s Grade II/ systolic murmur. Lungs: Diminished throughout but clear. Abdomen: Increased short of breath noted with palpation over liver, without overt hepatomegaly. Extremities: 1-2+ left greater than right lower extremity peripheral edema Pulses: No radial, posterior tibial, or dorsalis pedis pulses Neuro: Expressive aphasia Results & Data Vital Signs (Past 12 Hours) Vital Signs Temp Pulse Pulse Resp BP Pulse Ox O2 Del Method 06/27/24 08:00 36.8 C 68 20 168/67 H 98 Nasal Cannula 06/27/24 02:53 36.7 C 70 20 110/63 95 Oxymask 06/26/24 23:03 36.6 C 65 20 134/60 94 Oxymask 06/26/24 23:00 66 06/26/24 21:52 58 L O2 Flow Rate 06/27/24 08:00 5.0 06/27/24 02:53 06/26/24 23:03 06/26/24 23:00 06/26/24 21:52 Laboratory Results Cardiac Enzymes 06/26/24 06/26/24 06/27/24 Range/Units 14:16 18:29 05:36 AST 24 20 (13-39) U/L Troponin I High Sens 20.8 H 22.1 H (0-14) pg/ml B-Natriuretic Peptide 524 H (0-100) pg/ml 06/27/24 Range/Units 07:55 AST (13-39) U/L Troponin I High Sens 24.0 H (0-14) pg/ml B-Natriuretic Peptide (0-100) pg/ml Coagulation 06/26/24 Range/Units 14:16 PT 11.1 (9.0-12.0) Seconds APTT 29 (21-31) Seconds B-Natriuretic Peptide 524 H (0-100) pg/ml CBC 06/26/24 06/27/24 Range/Units 14:16 05:36 WBC 8.26 8.19 (4.8-10.8) K/ul RBC 3.51 L 3.40 L (4.20-5.40) M/uL Hgb 9.8 L 9.6 L (12.0-16.0) g/dl Hct 33.3 L 31.3 L (37.0-47.0) % Plt Count 232 207 (130-400) K/uL Neut # (Auto) 6.37 5.90 (1.40-6.50) K/uL Lymph # (Auto) 1.03 L 1.22 (1.20-3.40) K/uL [place] # (Auto) 0.68 H 0.74 H (0.11-0.59) K/uL Eos # (Auto) 0.12 0.24 (0.00-0.50) K/uL Baso # (Auto) 0.03 0.05 (0.00-0.20) K/uL Comprehensive Metabolic Panel 06/26/24 06/27/24 Range/Units 14:16 05:36 Sodium 138 138 (136-145) mmol/L Potassium 5.0 4.0 (3.5-5.1) mmol/L Chloride 99 96 L (98-107) mmol/L Carbon Dioxide 35 H 38 H (21-32) mmol/L BUN 24 H 24 H (6-23) mg/dl Creatinine 0.98 1.04 (0.6-1.2) mg/dl Glucose 110 H 112 H (70-99(Fasting)) mg/dl Calcium 9.2 8.9 (8.6-10.3) mg/dl AST 24 20 (13-39) U/L ALT 21 17 (7-52) U/L Alkaline Phosphatase 99 84 (34-104) U/L Total Protein 6.3 5.6 L (6.0-8.3) gm/dl Albumin 3.5 3.2 L (3.4-5.0) gm/dl Intake and Output 06/26/24 06/27/24 06/27/24 22:59 06:59 14:59 Intake Total 50 / 270 220 / 270 Output Total 950 / 3800 2850 / 3800 Balance -900 / -3530 -2630 / -3530 Intake: IV 50 / 50 cefTRIAXone SODIUM 2,000 mg In 50 / 50 50 ml @ 100 mls/hr IV Q24H LIAM Rx#:[id number] Oral 220 / 220 Output: Urine 950 / 3800 2850 / 3800 Other: # Unmeasured Voids 1 Weight 105.1 kg 105 kg Weight Measurement Method Standing Scale Diagnostic Findings November 27, 2023 TTE: LVEF 55 to 60%. Trace mitral regurgitation. Normal IVC and collapsibility with sniff indicating a normal right atrial pressure of 3 mmHg Last available echo was February 03, 2024 -normal size LV. Mild concentric LVH. EF 50 to 55%. Normal RV size and function. Moderate mitral annular calcification. No mitral valve stenosis. Trivial posterior pericardial effusion of nonhemodynamic significance. Pacemaker interrogation on June 06, 2024 demonstrated normal device function, 7.2 to 11.3 years remaining longevity. Underlying rhythm atrial fibrillation/complete heart block. Atrial fibrillation has been persistent since March 2024. Daily heart rates appear controlled. Ventricular paced 47%. Telemetry: Atrial fibrillation, intermittent ventricular pacing, heart rates predominantly in the 60s
--- NOTE | 2024-06-27 12:57 | Hospitalist Progress Note ---
Date of Service June 27, 2024 Assessment & Plan (1) Diabetes mellitus, type 2: (2) Peripheral vascular disease: (3) Atrial fibrillation: (4) Hypertension: (5) Hyperlipidemia: (6) CKD (chronic kidney disease), stage III: (7) CAD (coronary artery disease): (8) Chronic obstructive pulmonary disease: Plan Assessment and plan: CHF exacerbation Chronic hypoxic respiratory failure Hx COPDon 4 L chronically Presented with worsening shortness of breath, elevated BNP, chest x-ray with CHF exacerbation IV Lasix twice a day, strict I&O, telemetry monitoring, consider cardiology consult if no improvement Remains on baseline 4 Lnot in active COPD exacerbation, reports compliance with inhalers at home -cardiology consulted, appreciate recs, continue IV diuresis today with plan for discharge on PO tomorrow Syncope x 2: Reports 2 syncopal episodes lasting about a minute 2 days ago Reports holding her lisinopril and her Cardizem due to concerns with heart rates in the 50s Telemetry monitoring, check orthostatic BPs Hx hyperlipidemia: Continue statin Hx DM2: continue Jardiance, recheck A1c Hx AF s/p pacemaker February 2024 continue metoprolol/Cardizem Feeding/fluids: heart healthy Analgesia: tylenol Sedation: na Thromboprophylaxis: eliquis Head up position: na Ulcer prophylaxis: protonix Glycemic control: na Spontaneous breathing trial: baseline 4-5L Bowel care: start miralax prn Indwelling catheter removal: pull before discharge Deescalation of antibiotics: na I spent a total of 50 minutes in direct patient care, including [id number] time with the patient and/or family, reviewing medical records, ordering and reviewing diagnostic tests, and coordinating care with other healthcare providers. This time includes: history taking, physical examination, medical decision making, counseling, ECG interpretation, imaging interpretation, lab interpretation, orders, and education, excluding time spent in the performance of separately billed services. Admission and Anticipated Discharge Date Admission Date: June 26, 2024 Subjective Patient seen and examined at bedside. Patient states she is doing well today. She feels less short of breath, discussed plan to continue IV diuresis for 1 more day. She is agreeable to the plan. Review of Systems Review of Systems: CONSTITUTIONAL: Patient denies fevers, chills, sweats and weight changes. EYES: Patient denies any visual symptoms. EARS, NOSE, AND THROAT: No difficulties with hearing. No symptoms of rhinitis or sore throat. CARDIOVASCULAR: Patient denies chest pains, palpitations, orthopnea and paroxysmal nocturnal dyspnea. RESPIRATORY: SOB, improved from yesterday GI: No nausea, vomiting, diarrhea, constipation, abdominal pain, hematochezia or melena. : No urinary hesitancy or dribbling. No nocturia or urinary frequency. No abnormal urethral discharge. MUSCULOSKELETAL: No myalgias or arthralgias. NEUROLOGIC: No chronic headaches, no seizures. Patient denies numbness, tingling or weakness. PSYCHIATRIC: Patient denies problems with mood disturbance. No problems with anxiety. ENDOCRINE: No excessive urination or excessive thirst. DERMATOLOGIC: Patient denies any rashes or skin changes. Physical Exam Physical Exam: Gen: A&O 3 NAD, chronically ill HEENT: NCAT, EOMI, not icteric. External ears normal. No rhinorrhea. Moist mucous membranes. Neck: Supple, full range of motion, no observable masses, No meningeal sign. Lungs: crackles in bilateral lower lungs CV: RRR, no edema. Abdomen: Soft, nondistended, No rebound tenderness. MSK: No joint swelling, no redness. Skin: No rashes, petechiae, lesions. Normal color per patient. Neuro: Normal Gait, Grossly intact. Psych: Appropriate for situation. Results & Data Results & Data Vital Signs (Past 12 Hours) Vital Signs Temp Pulse Resp BP Pulse Ox O2 Del Method O2 Flow Rate 06/27/24 12:10 36.7 C 62 20 139/75 95 Nasal Cannula 7.0 06/27/24 08:00 36.8 C 68 20 168/67 H 98 Nasal Cannula 5.0 06/27/24 02:53 36.7 C 70 20 110/63 95 Oxymask Laboratory Results -personally reviewed, slightly elevated BNP in setting of decompensated HF Diagnostic Findings -personally reviewed, concerning for bilateral lower lobe pleural effusions Medications Administered Acetaminophen (Acetaminophen 325 Mg Tab) 650 mg PO Q4H PRN PRN Reason: Pain or Fever Stop: 07/26/24 17:48 Last Admin: 06/27/24 02:25 Dose: 650 mg Documented By: VICKIE Albuterol (Albut/Ipratrop 3mg/0.5mg Neb 3 Ml Vial) 3 ml NEB Q2H PRN; Protocol PRN Reason: sob wheeze Stop: 07/26/24 20:21 Last Admin: 06/26/24 20:45 Dose: 3 ml Documented By: EML Amitriptyline HCl (Amitriptyline Hcl 10 Mg Tab) 10 mg PO HS LIAM Stop: 07/26/24 20:59 Last Admin: 06/26/24 21:03 Dose: 10 mg Documented By: [facility] Apixaban (Apixaban 5 Mg Tablet) 5 mg PO BID LIAM Stop: 07/26/24 20:59 Last Admin: 06/27/24 09:32 Dose: 5 mg Documented By: Admin: 06/26/24 21:01 Dose: 5 mg Documented By: [facility] Aspirin (Aspirin 81 Mg Ectab) 81 mg PO DAILY LIAM Stop: 07/27/24 08:59 Last Admin: 06/27/24 09:32 Dose: 81 mg Documented By: KTS Atorvastatin Calcium (Atorvastatin 40 Mg Tab) 80 mg PO PM LIAM Stop: 07/26/24 20:59 Last Admin: 06/26/24 21:01 Dose: 80 mg Documented By: [facility] Empagliflozin (Empagliflozin 10 Mg Tab) 10 mg PO DAILY LIAM Stop: 07/27/24 08:59 Last Admin: 06/27/24 09:32 Dose: 10 mg Documented By: KTS Furosemide (Furosemide 40 Mg/4 Ml Vial) 40 mg IV BID LIAM Stop: 07/26/24 20:59 Last Admin: 06/27/24 09:33 Dose: 40 mg Documented By: Admin: 06/26/24 21:01 Dose: 40 mg Documented By: [facility] Ceftriaxone Sodium (Rocephin) 2,000 mg in 50 mls @ 100 mls/hr IV Q24H LIAM Stop: 07/06/24 21:59 Last Infusion: 06/26/24 22:49 Dose: Infused Documented By: [facility] Admin: 06/26/24 22:18 Dose: 100 mls/hr Documented By: [facility] Isosorbide Mononitrate (Isosorbide Parke Extended Rel 30 Mg Tabcr) 30 mg PO QAM LIAM Stop: 07/27/24 08:59 Last Admin: 06/27/24 09:33 Dose: 30 mg Documented By: KTS Metoprolol Succinate (Metoprolol Succ 25mg Ext Rel Tab) 25 mg PO BID LIAM Stop: 07/26/24 20:59 Last Admin: 06/27/24 09:33 Dose: 25 mg Documented By: Admin: 06/26/24 21:01 Dose: 25 mg Documented By: CASE Multivitamins (Multivitamin Tab) 1 tab PO DAILY LIAM Stop: 07/27/24 08:59 Last Admin: 06/27/24 09:33 Dose: 1 tab Documented By: QING Pantoprazole Sodium (Pantoprazole 40 Mg Tab) 40 mg PO BID LIAM Stop: 07/26/24 20:59 Last Admin: 06/27/24 09:33 Dose: 40 mg Documented By: Admin: 06/26/24 21:01 Dose: 40 mg Documented By: CASE Pregabalin (Pregabalin 25 Mg Cap) 25 mg PO BID LIAM Stop: 07/26/24 20:59 Last Admin: 06/27/24 09:33 Dose: 25 mg Documented By: Admin: 06/26/24 21:01 Dose: 25 mg Documented By: CASE Trazodone HCl (Trazodone Hcl 50 Mg Tab) 50 mg PO HS PRN PRN Reason: Insomnia Stop: 07/26/24 20:59 Last Admin: 06/26/24 21:01 Dose: 50 mg Documented By: CASE Vitamin D (Cholecalciferol 25 Mcg (1000 Units) Tab) 25 mcg PO DAILY LIAM Stop: 07/27/24 08:59 Last Admin: 06/27/24 09:32 Dose: 25 mcg Documented By: QING
[2024-06-27] MEDS ORDERED: POLYETHYLENE (MIRALAX) 17 GM PACK PO PRN (12:58)
--- NOTE | 2024-06-27 16:04 | Electrocardiogram Report ---
Test Reason : Blood Pressure : */* mmHG Vent. Rate : 66 BPM Atrial Rate : * BPM P-R Int : * ms QRS Dur : 128 ms QT Int : 468 ms P-R-T Axes : * 54 -13 degrees QTcB Int : 490 ms Atrial fibrillation with frequent ventricular-paced complexes Right bundle branch block T wave abnormality, consider anterolateral ischemia Abnormal ECG When compared with ECG of 26-Jun-2024 14:13, No significant change was found Confirmed by Pop Wagner ([id number]) on 06/27/2024 4:03:44 PM Referred By: REFERRED SELF Confirmed By: Pop Wagner
[2024-06-27] MEDS: MELATONIN 3 MG TAB PO SCH (21:19)
[2024-06-27] MEDS: PREGABALIN 25 MG CAP PO SCH (22:06)
[2024-06-28 07:03] LABS: BUN Creatinine Ratio 18.5 (10-20); Calcium 8.8 mg/dl (8.6-10.3); Creatinine Clr Calc Pharmacy 46.2 ml/min; Magnesium 1.6 mg/dl (1.7-2.4); Potassium 3.6 mmol/L (3.5-5.1)
[2024-06-28] MEDS: POTASSIUM CHLORIDE CRTAB 20 MEQ TABCR PO STA (07:52)
[2024-06-28] MEDS: MAGNESIUM SULFATE / D5W 1 GM/100 ML BAG IV SCH (07:53)
--- NOTE | 2024-06-28 11:19 | Cardiology Progress Note ---
Date of Service June 28, 2024 Assessment & Plan (1) Acute decompensated heart failure: (2) Pleural effusion: (3) Persistent atrial fibrillation: (4) ASCVD (arteriosclerotic cardiovascular disease): (5) Elevated troponin: (6) Syncope: (7) Tachy-maribel syndrome: (8) S/P cardiac pacemaker procedure: (9) CKD (chronic kidney disease), stage III: Plan 06/27/25: Acute decompensated heart failure. Suspect systolic and diastolic etiology. Patient responding well to IV diuresis. Continue IV furosemide at 40 mg twice per day. Discontinue diltiazem. Refer for resting echocardiography. Maintain normokalemia and normomagnesemia. Patient will require loop diuretic therapy on discharge. Atrial fibrillation. Persistent since March 2024. Recommend rate control with metoprolol succinate. Continue anticoagulation with apixaban 5 mg twice per day. ASCVD. Minimal elevated troponin. Patient asymptomatic. Continue medical management. Severe diffuse peripheral arterial disease. Continue aspirin and statin. Avoid hypotension. 06/28/24: Patient with aggressive diuresis over the last 24 hours. -5.4 L since admission. Weight trending downward. Interval improvement in volume status noted this morning. IV diuretics on hold. Mild rise in creatinine at 1.2 this morning. will benefit from loop diuretic on discharge. Start furosemide 20 mg daily on discharge Will need BMP in 3-5 days. Echo yesterday with preserved LVEF, no significant valvular disease Chronic afib, rates controlled. Device interrogated. LV lead voltage increased with auto capture turned on to prevent bradycardia. Continue metoprolol. continue Eliquis Continue statin, isosorbide, metoprolol. Anticipate possible discharge today or tomorrow. May benefit from PT/OT evaluations. Case discussed with Dr. Robby Ann spent a total of 35 minutes on the date of service in preparation, delivery, and documentation of the care provided to this patient, excluding any time spent in the performance of separately billed services. Naya Kiser PA-C Department of Cardiology, [facility] This chart was completed in part utilizing Speech Voice Recognition Software. Grammatical errors, random word insertions, pronoun errors, and incomplete sentences are an occasional consequence of this system due to software limitations, ambient noise, and hardware issues. Any formal questions or concerns about the content, text, or information contained within the body of this dictation should be directly addressed to the provider for clarification. Admission and Anticipated Discharge Date Admission Date: June 26, 2024 Supervising Physician Co-Signing Physician Notes Full assessment and plan as outlined by advanced provider above. Patient personally examined and care and management endorsed. Complex 74-year-old female with chronic atrial fibrillation cerebrovascular disease with prior stroke presented with signs and symptoms of acute decompensated mixed systolic and diastolic heart failure. Patient responded to diuretics now clinically improved. Plan as outlined above. Initiate chronic diuretic therapy on discharge. Not previously on. Diltiazem discontinued, metoprolol succinate continued at 25 mg twice per day Subjective Patient resting at edge of bed. Feeling "well". Hoping to go home. Feels her breathing is at baseline. On chronic supplemental O2. Edema improving. Good diuresis over the last 24 hours. Mild rise in creatinine today at 1.2 No chest pain. Review of Systems Review of Systems: All systems reviewed & are unremarkable except as noted in HPI & below Physical Exam Physical Exam: General: NAD. HENT: Healing ecchymosis/excoriation over left temporal area Eyes: PER. Conjunctiva pink, sclera clear. Neck: + JVD. + Hepatojugular reflux. Bilateral carotid endarterectomy scars. Harsh bilateral carotid bruits. Heart: Irregularly irregular, heart rate in the 60s Grade II/ systolic murmur. Lungs: Diminished throughout but clear. Abdomen: Increased short of breath noted with palpation over liver, without overt hepatomegaly. Extremities: 1+ pretibial left greater than right lower extremity peripheral edema Pulses: No radial, posterior tibial, or dorsalis pedis pulses Neuro: Expressive aphasia Results & Data Vital Signs (Past 12 Hours) Vital Signs Temp Pulse Resp BP Pulse Ox O2 Del Method O2 Flow Rate 06/28/24 09:11 20 122/69 06/28/24 09:11 122/69 06/28/24 09:11 Nasal Cannula 6 06/28/24 03:01 36.8 C 65 20 157/63 H 94 Oxymask Laboratory Results Comprehensive Metabolic Panel 06/28/24 Range/Units 05:23 Sodium 140 (136-145) mmol/L Potassium 3.6 (3.5-5.1) mmol/L Chloride 94 L (98-107) mmol/L Carbon Dioxide 39 H (21-32) mmol/L BUN 23 (6-23) mg/dl Creatinine 1.24 H (0.6-1.2) mg/dl Glucose 111 H (70-99(Fasting)) mg/dl Calcium 8.8 (8.6-10.3) mg/dl Intake and Output 06/27/24 06/28/24 06/28/24 22:59 06:59 14:59 Intake Total 250 / 1810 120 / 1810 200 / 200 Output Total 1200 / 3903 1000 / 3903 Balance -950 / -2093 -880 / -2093 200 / 200 Intake: IV 50 / 50 200 / 200 Magnesium Sulfate / D5w 1 gm In 200 / 200 100 ml @ 50 mls/hr IV Q2H [facility] Rx#:[id number] cefTRIAXone SODIUM 2,000 mg In 50 / 50 50 ml @ 100 mls/hr IV Q24H [facility] Rx#:[id number] Oral 200 / 1760 120 / 1760 Output: Urine 1200 / 3900 1000 / 3900 Other: Weight 104.5 kg Diagnostic Findings Telemetry reviewed: Afib with intermittent ventricular pacing. Echo report reviewed dated 06/27/24: Normal LVEF at 50-55% LA is moderately dilated No wall motion abnormalities Mild LVH mild TR Aortic valve sclerosis without stenosis Medications Administered Current Inpatient Medications Acetaminophen (Acetaminophen 325 Mg Tab) 650 mg PO Q4H PRN PRN Reason: Pain or Fever Stop: 07/26/24 17:48 Last Admin: 06/27/24 02:25 Dose: 650 mg Albuterol (Albut/Ipratrop 3mg/0.5mg Neb 3 Ml Vial) 3 ml NEB Q2H PRN; Protocol PRN Reason: sob wheeze Stop: 07/26/24 20:21 Last Admin: 06/26/24 20:45 Dose: 3 ml Amitriptyline HCl (Amitriptyline Hcl 10 Mg Tab) 10 mg PO HS LIAM Stop: 07/26/24 20:59 Last Admin: 06/27/24 21:22 Dose: 10 mg Apixaban (Apixaban 5 Mg Tablet) 5 mg PO BID LIAM Stop: 07/26/24 20:59 Last Admin: 06/28/24 07:54 Dose: 5 mg Aspirin (Aspirin 81 Mg Ectab) 81 mg PO DAILY LIAM Stop: 07/27/24 08:59 Last Admin: 06/28/24 07:54 Dose: 81 mg Atorvastatin Calcium (Atorvastatin 40 Mg Tab) 80 mg PO PM LIAM Stop: 07/26/24 20:59 Last Admin: 06/27/24 21:20 Dose: 80 mg Empagliflozin (Empagliflozin 10 Mg Tab) 10 mg PO DAILY LIAM Stop: 07/27/24 08:59 Last Admin: 06/28/24 07:55 Dose: 10 mg Ceftriaxone Sodium (Rocephin) 2,000 mg in 50 mls @ 100 mls/hr IV Q24H LIAM Stop: 07/06/24 21:59 Last Infusion: 06/27/24 22:13 Dose: Infused Magnesium Sulfate/Dextrose (Magnesium Sulfate / D5w) 1 gm in 100 mls @ 50 mls/hr IV Q2H LIAM Stop: 06/28/24 13:29 Last Admin: 06/28/24 10:27 Dose: 50 mls/hr Isosorbide Mononitrate (Isosorbide [place] Extended Rel 30 Mg Tabcr) 30 mg PO QAM LIAM Stop: 07/27/24 08:59 Last Admin: 06/28/24 07:54 Dose: 30 mg Melatonin (Melatonin 3 Mg Tab) 3 mg PO HS LIAM Stop: 07/27/24 20:59 Last Admin: 06/27/24 21:19 Dose: 3 mg Metoprolol Succinate (Metoprolol Succ 25mg Ext Rel Tab) 25 mg PO BID LIAM Stop: 07/26/24 20:59 Last Admin: 06/28/24 07:54 Dose: 25 mg Multivitamins (Multivitamin Tab) 1 tab PO DAILY LIAM Stop: 07/27/24 08:59 Last Admin: 06/28/24 07:55 Dose: 1 tab Pantoprazole Sodium (Pantoprazole 40 Mg Tab) 40 mg PO BID LIAM Stop: 07/26/24 20:59 Last Admin: 06/28/24 07:54 Dose: 40 mg Polyethylene Glycol (Polyethylene (Miralax) 17 Gm Pack) 17 gm PO DAILY PRN PRN Reason: Constipation Stop: 07/27/24 12:57 Pregabalin (Pregabalin 25 Mg Cap) 25 mg PO BID LIAM Stop: 07/27/24 20:59 Last Admin: 06/28/24 07:53 Dose: 25 mg Trazodone HCl (Trazodone Hcl 50 Mg Tab) 50 mg PO HS PRN PRN Reason: Insomnia Stop: 07/26/24 20:59 Last Admin: 06/27/24 21:19 Dose: 50 mg Vitamin D (Cholecalciferol 25 Mcg (1000 Units) Tab) 25 mcg PO DAILY LIAM Stop: 07/27/24 08:59 Last Admin: 06/28/24 07:54 Dose: 25 mcg
--- NOTE | 2024-06-28 16:19 | Hospitalist Progress Note ---
Date of Service June 28, 2024 Assessment & Plan (1) Diabetes mellitus, type 2: (2) Peripheral vascular disease: (3) Atrial fibrillation: (4) Hypertension: (5) Hyperlipidemia: (6) CKD (chronic kidney disease), stage III: (7) CAD (coronary artery disease): (8) Chronic obstructive pulmonary disease: Plan Assessment and plan: CHF exacerbation Acute on Chronic hypoxic respiratory failure Hx COPDon 4 L chronically Presented with worsening shortness of breath, elevated BNP, chest x-ray with CHF exacerbation -on 6L currently, will scan chest to r/o other abdnormalities -working with case management on home oxygen -hold diuresis today given evidence of volume contraction -cardiology consulted, appreciate recs, switch to PO lasix on discharge Syncope x 2: Reports 2 syncopal episodes lasting about a minute 2 days ago Reports holding her lisinopril and her Cardizem due to concerns with heart rates in the 50s Telemetry monitoring, check orthostatic BPs Hx hyperlipidemia: Continue statin Hx DM2: continue Jardiance, recheck A1c Hx AF s/p pacemaker February 2024 continue metoprolol/Cardizem Feeding/fluids: heart healthy Analgesia: tylenol Sedation: na Thromboprophylaxis: eliquis Head up position: na Ulcer prophylaxis: protonix Glycemic control: na Spontaneous breathing trial: baseline 4-5L Bowel care: start miralax prn Indwelling catheter removal: pull before discharge Deescalation of antibiotics: na I spent a total of 45 minutes in direct patient care, including [id number] time with the patient and/or family, reviewing medical records, ordering and reviewing diagnostic tests, and coordinating care with other healthcare providers. This time includes: history taking, physical examination, medical decision making, counseling, ECG interpretation, imaging interpretation, lab interpretation, orders, and education, excluding time spent in the performance of separately billed services. Admission and Anticipated Discharge Date Admission Date: June 26, 2024 Subjective Patient seen and examined at bedside. Ms. Yee is doing ok today. She states she feels better than yesterday and wants to go home. Review of Systems Review of Systems: CONSTITUTIONAL: Patient denies fevers, chills, sweats and weight changes. EYES: Patient denies any visual symptoms. EARS, NOSE, AND THROAT: No difficulties with hearing. No symptoms of rhinitis or sore throat. CARDIOVASCULAR: Patient denies chest pains, palpitations, orthopnea and paroxysmal nocturnal dyspnea. RESPIRATORY: SOB, improved from yesterday GI: No nausea, vomiting, diarrhea, constipation, abdominal pain, hematochezia or melena. : No urinary hesitancy or dribbling. No nocturia or urinary frequency. No abnormal urethral discharge. MUSCULOSKELETAL: No myalgias or arthralgias. NEUROLOGIC: No chronic headaches, no seizures. Patient denies numbness, tingling or weakness. PSYCHIATRIC: Patient denies problems with mood disturbance. No problems with anxiety. ENDOCRINE: No excessive urination or excessive thirst. DERMATOLOGIC: Patient denies any rashes or skin changes. Physical Exam Physical Exam: Gen: A&O 3 NAD, chronically ill HEENT: NCAT, EOMI, not icteric. External ears normal. No rhinorrhea. Moist mucous membranes. Neck: Supple, full range of motion, no observable masses, No meningeal sign. Lungs: crackles in bilateral lower lungs, slightly improved from prior CV: RRR, no edema. Abdomen: Soft, nondistended, No rebound tenderness. MSK: No joint swelling, no redness. Skin: No rashes, petechiae, lesions. Normal color per patient. Neuro: Normal Gait, Grossly intact. Psych: Appropriate for situation. Results & Data Results & Data Vital Signs (Past 12 Hours) Vital Signs Temp Pulse Pulse Pulse Pulse Pulse Pulse 06/28/24 16:06 36.7 C 65 06/28/24 13:43 84 88 64 60 60 06/28/24 12:53 36.5 C 71 06/28/24 09:11 06/28/24 09:11 06/28/24 09:11 Resp Resp Resp Resp Resp Resp BP 06/28/24 16:06 8 L 194/103 H 06/28/24 13:43 22 20 20 18 18 06/28/24 12:53 13 150/95 H 06/28/24 09:11 20 122/69 06/28/24 09:11 122/69 06/28/24 09:11 Pulse Ox Pulse Ox Pulse Ox Pulse Ox Pulse Ox Pulse Ox O2 Del Method 06/28/24 16:06 95 Nasal Cannula 06/28/24 13:43 86 L 90 85 L 90 81 L 06/28/24 12:53 98 Nasal Cannula 06/28/24 09:11 06/28/24 09:11 06/28/24 09:11 Nasal Cannula O2 Flow Rate O2 Flow Rate O2 Flow Rate O2 Flow Rate O2 Flow Rate 06/28/24 16:06 6 06/28/24 13:43 6 8 4 6 06/28/24 12:53 6 06/28/24 09:11 06/28/24 09:11 06/28/24 09:11 6 Laboratory Results -personally reviewed, slight bump in creatinine 2/2 diuresis, Mg 1.6 from diuresis was replenished Medications Administered Acetaminophen (Acetaminophen 325 Mg Tab) 650 mg PO Q4H PRN PRN Reason: Pain or Fever Stop: 07/26/24 17:48 Last Admin: 06/27/24 02:25 Dose: 650 mg Documented By: VICKIE Albuterol (Albut/Ipratrop 3mg/0.5mg Neb 3 Ml Vial) 3 ml NEB Q2H PRN; Protocol PRN Reason: sob wheeze Stop: 07/26/24 20:21 Last Admin: 06/26/24 20:45 Dose: 3 ml Documented By: MANNY Amitriptyline HCl (Amitriptyline Hcl 10 Mg Tab) 10 mg PO HS LIAM Stop: 07/26/24 20:59 Last Admin: 06/27/24 21:22 Dose: 10 mg Documented By: Admin: 06/26/24 21:03 Dose: 10 mg Documented By: CASE Apixaban (Apixaban 5 Mg Tablet) 5 mg PO BID LIAM Stop: 07/26/24 20:59 Last Admin: 06/28/24 07:54 Dose: 5 mg Documented By: Admin: 06/27/24 21:21 Dose: 5 mg Documented By: Admin: 06/27/24 09:32 Dose: 5 mg Documented By: Admin: 06/26/24 21:01 Dose: 5 mg Documented By: CASE Aspirin (Aspirin 81 Mg Ectab) 81 mg PO DAILY LIAM Stop: 07/27/24 08:59 Last Admin: 06/28/24 07:54 Dose: 81 mg Documented By: Admin: 06/27/24 09:32 Dose: 81 mg Documented By: QING Atorvastatin Calcium (Atorvastatin 40 Mg Tab) 80 mg PO PM LIAM Stop: 07/26/24 20:59 Last Admin: 06/27/24 21:20 Dose: 80 mg Documented By: Admin: 06/26/24 21:01 Dose: 80 mg Documented By: CASE Empagliflozin (Empagliflozin 10 Mg Tab) 10 mg PO DAILY LIAM Stop: 07/27/24 08:59 Last Admin: 06/28/24 07:55 Dose: 10 mg Documented By: Admin: 06/27/24 09:32 Dose: 10 mg Documented By: QING Ceftriaxone Sodium (Rocephin) 2,000 mg in 50 mls @ 100 mls/hr IV Q24H LIAM Stop: 07/06/24 21:59 Last Infusion: 06/27/24 22:13 Dose: Infused Documented By: Admin: 06/27/24 21:20 Dose: 100 mls/hr Documented By: Infusion: 06/26/24 22:49 Dose: Infused Documented By: Admin: 06/26/24 22:18 Dose: 100 mls/hr Documented By: CASE Isosorbide Mononitrate (Isosorbide [place] Extended Rel 30 Mg Tabcr) 30 mg PO QAM LIAM Stop: 07/27/24 08:59 Last Admin: 06/28/24 07:54 Dose: 30 mg Documented By: Admin: 06/27/24 09:33 Dose: 30 mg Documented By: QING Melatonin (Melatonin 3 Mg Tab) 3 mg PO HS LIAM Stop: 07/27/24 20:59 Last Admin: 06/27/24 21:19 Dose: 3 mg Documented By: VICKIE Metoprolol Succinate (Metoprolol Succ 25mg Ext Rel Tab) 25 mg PO BID LIAM Stop: 07/26/24 20:59 Last Admin: 06/28/24 07:54 Dose: 25 mg Documented By: Admin: 06/27/24 21:21 Dose: 25 mg Documented By: Admin: 06/27/24 09:33 Dose: 25 mg Documented By: Admin: 06/26/24 21:01 Dose: 25 mg Documented By: CASE Multivitamins (Multivitamin Tab) 1 tab PO DAILY LIAM Stop: 07/27/24 08:59 Last Admin: 06/28/24 07:55 Dose: 1 tab Documented By: Admin: 06/27/24 09:33 Dose: 1 tab Documented By: QING Pantoprazole Sodium (Pantoprazole 40 Mg Tab) 40 mg PO BID LIAM Stop: 07/26/24 20:59 Last Admin: 06/28/24 07:54 Dose: 40 mg Documented By: Admin: 06/27/24 21:20 Dose: 40 mg Documented By: Admin: 06/27/24 09:33 Dose: 40 mg Documented By: Admin: 06/26/24 21:01 Dose: 40 mg Documented By: CASE Pregabalin (Pregabalin 25 Mg Cap) 25 mg PO BID LIAM Stop: 07/27/24 20:59 Last Admin: 06/28/24 07:53 Dose: 25 mg Documented By: Admin: 06/27/24 22:06 Dose: 25 mg Documented By: VICKIE Trazodone HCl (Trazodone Hcl 50 Mg Tab) 50 mg PO HS PRN PRN Reason: Insomnia Stop: 07/26/24 20:59 Last Admin: 06/27/24 21:19 Dose: 50 mg Documented By: Admin: 06/26/24 21:01 Dose: 50 mg Documented By: CASE Vitamin D (Cholecalciferol 25 Mcg (1000 Units) Tab) 25 mcg PO DAILY LIAM Stop: 07/27/24 08:59 Last Admin: 06/28/24 07:54 Dose: 25 mcg Documented By: Admin: 06/27/24 09:32 Dose: 25 mcg Documented By: QING
[2024-06-28] MEDS: OPTIRAY 320 100ml IV ONE (16:23)
--- NOTE | 2024-06-28 16:42 | CT Scan Report ---
EXAM: CT Chest With Intravenous Contrast INDICATION: Hypoxia TECHNIQUE: Axial computed tomography images of the chest with intravenous contrast. Sagittal and coronal reformatted images were created and reviewed. This CT exam was performed using one or more of the following dose reduction techniques: automated exposure control, adjustment of the mA and/or kV according to patient size, and/or use of iterative reconstruction technique. CONTRAST: 94ml of Optiray 320 was administered intravenously. COMPARISON: No relevant prior studies available. FINDINGS: Limitations: None. Lungs and pleural spaces: Small layering bilateral pleural effusions present. There is diffuse septal thickening typical of vascular congestion. There is compressive atelectasis in the lingula and bilateral lower lobes with air bronchograms. No pneumothorax. Heart: Cardiomegaly noted. Cardiac pacing device noted. Metallic artifact limits assessment of lead integrity. Thyroid: No abnormality noted. Bones/joints: Degenerative changes noted throughout the spine. No acute osseous abnormality seen. Soft tissues: No significant abnormality noted. Vasculature: There is moderate to severe atherosclerosis of the aorta and branches. No aneurysm. Lymph nodes: Probably reactive 1.3 cm short axis dimension precarinal node present. IMPRESSION: 1. CHF. 2. Consolidation present in the lingula and bilateral lower lobes likely compressive atelectasis. Pneumonia not excluded. ACT 112: Negative or not required by law. Electronically signed by Jacquie Arellano 06-28-2024 4:42 PM
[2024-06-28] MEDS: AZITHROMYCIN 250 MG TAB PO SCH (19:37)
[2024-06-29] MEDS: ALUMINUM/MAGNESIUM/SIMETH (MAALOX MAX) 30 ML UDC PO STA (01:00)
[2024-06-29 06:31] LABS: BUN Creatinine Ratio 18.7 (10-20); Calcium 8.9 mg/dl (8.6-10.3); Creatinine Clr Calc Pharmacy 53.4 ml/min; Magnesium 2.3 mg/dl (1.7-2.4); Potassium 4.1 mmol/L (3.5-5.1)
[2024-06-29] MEDS: FUROSEMIDE 20 MG TAB PO SCH (09:03)
[2024-06-29] MEDS: lisinopril 5 MG TAB PO SCH (09:03)
[2024-06-29 10:57] VITALS: RESP 18
--- NOTE | 2024-06-29 11:43 | Cardiology Progress Note ---
Date of Service June 29, 2024 Assessment & Plan (1) Acute decompensated heart failure: (2) Pleural effusion: (3) Persistent atrial fibrillation: (4) ASCVD (arteriosclerotic cardiovascular disease): (5) Elevated troponin: (6) Syncope: (7) Tachy-maribel syndrome: (8) S/P cardiac pacemaker procedure: (9) CKD (chronic kidney disease), stage III: Plan 06/27/25: Acute decompensated heart failure. Suspect systolic and diastolic etiology. Patient responding well to IV diuresis. Continue IV furosemide at 40 mg twice per day. Discontinue diltiazem. Refer for resting echocardiography. Maintain normokalemia and normomagnesemia. Patient will require loop diuretic therapy on discharge. Atrial fibrillation. Persistent since March 2024. Recommend rate control with metoprolol succinate. Continue anticoagulation with apixaban 5 mg twice per day. ASCVD. Minimal elevated troponin. Patient asymptomatic. Continue medical management. Severe diffuse peripheral arterial disease. Continue aspirin and statin. Avoid hypotension. 06/28/24: Patient with aggressive diuresis over the last 24 hours. -5.4 L since admission. Weight trending downward. Interval improvement in volume status noted this morning. IV diuretics on hold. Mild rise in creatinine at 1.2 this morning. will benefit from loop diuretic on discharge. Start furosemide 20 mg daily on discharge Will need BMP in 3-5 days. Echo yesterday with preserved LVEF, no significant valvular disease Chronic afib, rates controlled. Device interrogated. LV lead voltage increased with auto capture turned on to prevent bradycardia. Continue metoprolol. Continue Eliquis Continue statin, isosorbide, metoprolol. Anticipate possible discharge today or tomorrow. May benefit from PT/OT evaluations. 06/29/24: Creatinine back to baseline this morning. resume lisinopril 5 mg daily for HTN transition to oral diuretic - furosemide 20 mg daily Interval improvement in volume status since admission. Still requiring higher O2 requirements from baseline. Oxygen being weaned today. Recommend PT/OT. Patient considering home hospice but is unsure if she wishes to proceed. She is going to call her family. Continue all other home cardiac medications. Remain off diltiazem. Can increase lisinopril or isosorbide for additional antihypertensive support if needed Case discussed with Dr. Robby Ann spent a total of 35 minutes on the date of service in preparation, delivery, and documentation of the care provided to this patient, excluding any time spent in the performance of separately billed services. Naya Kiser PA-C Department of Cardiology, [facility] This chart was completed in part utilizing Speech Voice Recognition Software. Grammatical errors, random word insertions, pronoun errors, and incomplete sentences are an occasional consequence of this system due to software limitations, ambient noise, and hardware issues. Any formal questions or concerns about the content, text, or information contained within the body of this dictation should be directly addressed to the provider for clarification. Admission and Anticipated Discharge Date Admission Date: June 26, 2024 Supervising Physician Co-Signing Physician Notes Full assessment and plan as outlined by advanced provider above. Patient personally examined and care and management endorsed. Complex 74-year-old female with chronic atrial fibrillation cerebrovascular disease with prior stroke presented with signs and symptoms of acute decompensated mixed systolic and diastolic heart failure. Patient responded to diuretics now clinically improved. Plan as outlined above. Subjective Patient resting in bed comfortably. She tells me this morning she may go home on "hospice" but she is unsure if this is what she wants. She reports SOB is back to baseline, but still requiring slightly higher oxygen requirements than prior. typically 4 L, still on 6 L here. Edema improved. No chest pain. No palpitations. no dizziness. Review of Systems Review of Systems: All systems reviewed & are unremarkable except as noted in HPI & below Physical Exam Physical Exam: General: NAD. HENT: Healing ecchymosis/excoriation over left temporal area Eyes: PER. Conjunctiva pink, sclera clear. Neck: + JVD. + Hepatojugular reflux. Bilateral carotid endarterectomy scars. Harsh bilateral carotid bruits. Heart: Irregularly irregular, heart rate in the 60s Grade II/ systolic murmur. Lungs: Diminished throughout but clear. Abdomen: Increased short of breath noted with palpation over liver, without overt hepatomegaly. Extremities: 1+ pretibial left greater than right lower extremity peripheral edema Pulses: No radial, posterior tibial, or dorsalis pedis pulses Neuro: Expressive aphasia Results & Data Vital Signs (Past 12 Hours) Vital Signs Temp Pulse Pulse Resp BP Pulse Ox O2 Del Method 06/29/24 10:55 64 18 98/53 L 91 Nasal Cannula 06/29/24 09:35 Nasal Cannula 06/29/24 07:44 66 02/27/25 07:16 60 19 185/110 H 92 Nasal Cannula 06/29/24 03:05 36.5 C 68 20 138/81 93 Nasal Cannula O2 Flow Rate 06/29/24 10:55 5 06/29/24 09:35 6 06/29/24 07:44 06/29/24 07:16 6 06/29/24 03:05 Laboratory Results Comprehensive Metabolic Panel 06/29/24 Range/Units 05:28 Sodium 137 (136-145) mmol/L Potassium 4.1 (3.5-5.1) mmol/L Chloride 94 L (98-107) mmol/L Carbon Dioxide 39 H (21-32) mmol/L BUN 20 (6-23) mg/dl Creatinine 1.07 (0.6-1.2) mg/dl Glucose 120 H (70-99(Fasting)) mg/dl Calcium 8.9 (8.6-10.3) mg/dl Intake and Output 06/28/24 06/29/24 06/29/24 22:59 06:59 14:59 Intake Total 500 / 1120 120 / 1120 Balance 500 / 1120 120 / 1120 Intake: IV 50 / 350 cefTRIAXone SODIUM 2,000 mg In 50 / 50 50 ml @ 100 mls/hr IV Q24H [facility] Rx#:[id number] Oral 450 / 770 120 / 770 Other: # Unmeasured Voids 1 1 Weight 104.1 kg Diagnostic Findings Telemetry reviewed: Afib with intermittent pacing in the 60-70's Medications Administered Current Inpatient Medications Acetaminophen (Acetaminophen 325 Mg Tab) 650 mg PO Q4H PRN PRN Reason: Pain or Fever Stop: 07/26/24 17:48 Last Admin: 06/27/24 02:25 Dose: 650 mg Albuterol (Albut/Ipratrop 3mg/0.5mg Neb 3 Ml Vial) 3 ml NEB Q2H PRN; Protocol PRN Reason: sob wheeze Stop: 07/26/24 20:21 Last Admin: 06/26/24 20:45 Dose: 3 ml Amitriptyline HCl (Amitriptyline Hcl 10 Mg Tab) 10 mg PO HS LIAM Stop: 07/26/24 20:59 Last Admin: 06/28/24 21:33 Dose: 10 mg Apixaban (Apixaban 5 Mg Tablet) 5 mg PO BID LIAM Stop: 07/26/24 20:59 Last Admin: 06/29/24 07:28 Dose: 5 mg Aspirin (Aspirin 81 Mg Ectab) 81 mg PO DAILY LIAM Stop: 07/27/24 08:59 Last Admin: 06/29/24 07:28 Dose: 81 mg Atorvastatin Calcium (Atorvastatin 40 Mg Tab) 80 mg PO PM LIAM Stop: 07/26/24 20:59 Last Admin: 06/28/24 21:33 Dose: 80 mg Azithromycin (Azithromycin 250 Mg Tab) 500 mg PO QAM LIAM Stop: 07/03/24 18:44 Last Admin: 06/29/24 07:27 Dose: 500 mg Empagliflozin (Empagliflozin 10 Mg Tab) 10 mg PO DAILY LIAM Stop: 07/27/24 08:59 Last Admin: 06/29/24 07:28 Dose: 10 mg Furosemide (Furosemide 20 Mg Tab) 20 mg PO QAM LIAM Stop: 07/29/24 08:59 Last Admin: 06/29/24 09:03 Dose: 20 mg Ceftriaxone Sodium (Rocephin) 2,000 mg in 50 mls @ 100 mls/hr IV Q24H LIAM Stop: 07/06/24 21:59 Last Infusion: 06/28/24 22:04 Dose: Infused Isosorbide Mononitrate (Isosorbide [place] Extended Rel 30 Mg Tabcr) 30 mg PO QAM LIAM Stop: 07/27/24 08:59 Last Admin: 06/29/24 07:28 Dose: 30 mg Lisinopril (Lisinopril 5 Mg Tab) 5 mg PO QAM LIAM Stop: 07/29/24 08:59 Last Admin: 06/29/24 09:03 Dose: 5 mg Melatonin (Melatonin 3 Mg Tab) 3 mg PO HS LIAM Stop: 07/27/24 20:59 Last Admin: 06/28/24 21:34 Dose: Not Given Metoprolol Succinate (Metoprolol Succ 25mg Ext Rel Tab) 25 mg PO BID LIAM Stop: 07/26/24 20:59 Last Admin: 06/29/24 07:27 Dose: 25 mg Multivitamins (Multivitamin Tab) 1 tab PO DAILY LIAM Stop: 07/27/24 08:59 Last Admin: 06/29/24 07:28 Dose: 1 tab Pantoprazole Sodium (Pantoprazole 40 Mg Tab) 40 mg PO BID LIAM Stop: 07/26/24 20:59 Last Admin: 06/29/24 07:27 Dose: 40 mg Polyethylene Glycol (Polyethylene (Miralax) 17 Gm Pack) 17 gm PO DAILY PRN PRN Reason: Constipation Stop: 07/27/24 12:57 Pregabalin (Pregabalin 25 Mg Cap) 25 mg PO BID LIAM Stop: 07/27/24 20:59 Last Admin: 06/29/24 07:40 Dose: 25 mg Trazodone HCl (Trazodone Hcl 50 Mg Tab) 50 mg PO HS PRN PRN Reason: Insomnia Stop: 07/26/24 20:59 Last Admin: 06/28/24 21:31 Dose: 50 mg Vitamin D (Cholecalciferol 25 Mcg (1000 Units) Tab) 25 mcg PO DAILY LIAM Stop: 07/27/24 08:59 Last Admin: 06/29/24 07:28 Dose: 25 mcg
[2024-06-29] MEDS ORDERED: ONDANSETRON INJ 2 MG/ML 2 ML VIAL IV PRN (16:05)
[2024-06-29] MEDS ORDERED: MoRPHine SULFATE 10 MG/0.5 ML UDP PO PRN (16:05)
[2024-06-29] MEDS ORDERED: LORazepam 2 MG/1 ML VIAL IV PRN (16:05)
--- NOTE | 2024-06-29 16:05 | Hospitalist Progress Note ---
Date of Service June 29, 2024 Assessment & Plan (1) Diabetes mellitus, type 2: (2) Peripheral vascular disease: (3) Atrial fibrillation: (4) Hypertension: (5) Hyperlipidemia: (6) CKD (chronic kidney disease), stage III: (7) CAD (coronary artery disease): (8) Chronic obstructive pulmonary disease: Plan Assessment and plan: CHF exacerbation Acute on Chronic hypoxic respiratory failure Hx COPDon 4 L chronically Presented with worsening shortness of breath, elevated BNP, chest x-ray with CHF exacerbation -on 6L currently, appears to have fluid overload and chronic lung changes -working with case management on home oxygen -cardiology consulted, appreciate recs, switch to PO lasix on discharge -see above, patient is engaging comfort focused approach to care, discharge home tomorrow with hospice at home -comfort focused care orders placed Syncope x 2: Reports 2 syncopal episodes lasting about a minute 2 days ago Reports holding her lisinopril and her Cardizem due to concerns with heart rates in the 50s Telemetry monitoring, check orthostatic BPs Hx hyperlipidemia: Continue statin Hx DM2: continue Jardiance Hx AF s/p pacemaker February 2024 continue metoprolol/Cardizem Feeding/fluids: heart healthy Analgesia: tylenol Sedation: na Thromboprophylaxis: eliquis Head up position: na Ulcer prophylaxis: protonix Glycemic control: na Spontaneous breathing trial: baseline 4-5L Bowel care: miralax prn Indwelling catheter removal: Deescalation of antibiotics: na I spent a total of 55 minutes in direct patient care, including igig-li-eejg time with the patient and/or family, reviewing medical records, ordering and reviewing diagnostic tests, and coordinating care with other healthcare providers. This time includes: history taking, physical examination, medical decision making, counseling, ECG interpretation, imaging interpretation, lab interpretation, orders, and education, excluding time spent in the performance of separately billed services. I spent a total of 30 minutes providing advanced care planning to the patient and/or family, including qcgc-[id number] time discussing the patient's health status, prognosis, and treatment options. This time includes specific activities such as: discussing advance directives, goals of care, prognostication, and end-of-life planning. Admission and Anticipated Discharge Date Admission Date: June 26, 2024 Subjective Patient seen and examined at bedside. Patient doing okay today. Feels about the same as yesterday. Discussed goals of care today with [id number], see note below. Advanced Care Plannin minutes spent discussing goals and values with patient and daughter in law at the bedside. .Discussed patient's goals and values at the bedside. Updated patient and [id number]-eh-[id number] on patient's condition, acute on chronic hypoxic respiratory failure secondary to COPD and congestive heart failure, but has improved but not resolved to baseline despite aggressive diuresis and antibiotics. Patient is expressed that she does not want to return to the hospital and would like to stay at home. Discussed that this patient is likely to return to the hospital again and again given her tenuous respiratory status. When asked, patient and poufkvyh-yq-htd do not want to know prognosis. Explained hospice at length. Discussed risks and benefits of hospice. Discussed that it is a comfort focused approach to care and is an insurance benefit. Patient states that she would like to sign on with hospice at home and not return to the hospital. cimqlyfj-wi-yjj states that her and her children will be able to provide pqcshy-rkj-uzmkj care for the patient. Discussed that hospice at home means that while the hospice agency covers all medicine and equipment needed for the hospice diagnosis, does not provide katelyn vbo-yti-qtsai care. They understand this. Review of Systems Review of Systems: CONSTITUTIONAL: Patient denies fevers, chills, sweats and weight changes. EYES: Patient denies any visual symptoms. EARS, NOSE, AND THROAT: No difficulties with hearing. No symptoms of rhinitis or sore throat. CARDIOVASCULAR: Patient denies chest pains, palpitations, orthopnea and paroxysmal nocturnal dyspnea. RESPIRATORY: SOB, improved from yesterday GI: No nausea, vomiting, diarrhea, constipation, abdominal pain, hematochezia or melena. : No urinary hesitancy or dribbling. No nocturia or urinary frequency. No abnormal urethral discharge. MUSCULOSKELETAL: No myalgias or arthralgias. NEUROLOGIC: No chronic headaches, no seizures. Patient denies numbness, tingling or weakness. PSYCHIATRIC: Patient denies problems with mood disturbance. No problems with anxiety. ENDOCRINE: No excessive urination or excessive thirst. DERMATOLOGIC: Patient denies any rashes or skin changes. Physical Exam Physical Exam: Gen: A&O 3 NAD, chronically ill HEENT: NCAT, EOMI, not icteric. External ears normal. No rhinorrhea. Moist mucous membranes. Neck: Supple, full range of motion, no observable masses, No meningeal sign. Lungs: crackles in bilateral lower lungs, slightly improved from prior CV: RRR, no edema. Abdomen: Soft, nondistended, No rebound tenderness. MSK: No joint swelling, no redness. Skin: No rashes, petechiae, lesions. Normal color per patient. Neuro: Normal Gait, Grossly intact. Psych: Appropriate for situation. Results & Data Results & Data Vital Signs (Past 12 Hours) Vital Signs Temp Pulse Pulse Resp BP Pulse Ox O2 Del Method 06/29/24 15:47 36.5 C 65 18 133/72 95 Nasal Cannula 06/29/24 14:15 62 06/29/24 10:55 64 18 98/53 L 91 Nasal Cannula 06/29/24 09:35 Nasal Cannula 06/29/24 07:44 66 06/29/24 07:16 60 19 185/110 H 92 Nasal Cannula O2 Flow Rate 06/29/24 15:47 6 06/29/24 14:15 06/29/24 10:55 5 06/29/24 09:35 6 06/29/24 07:44 06/29/24 07:16 6 Laboratory Results -personally reviewed, creatinine improved from prior
[2024-06-30 08:16] VITALS: BP 137/66; PULSE 61; TEMP 98.1; O2SAT 96
--- NOTE | 2024-06-30 14:45 | Discharge Summary ---
Discharge Summary Date of Service June 30, 2024 Principal Dx & Hospital Course #1 = Principal Diagnosis (1) Diabetes mellitus, type 2: (2) Peripheral vascular disease: (3) Atrial fibrillation: (4) Hypertension: (5) Hyperlipidemia: (6) CKD (chronic kidney disease), stage III: (7) CAD (coronary artery disease): (8) Chronic obstructive pulmonary disease: Plan Assessment and plan: CHF exacerbation Acute on Chronic hypoxic respiratory failure Hx COPDon 4 L chronically Presented with worsening shortness of breath, elevated BNP, chest x-ray with CHF exacerbation -on 6L currently, appears to have fluid overload and chronic lung changes -working with case management on home oxygen -cardiology consulted, appreciate recs, switch to PO lasix on discharge -see above, patient is engaging comfort focused approach to care, discharge home tomorrow with hospice at home -comfort focused care orders placed Syncope x 2: Reports 2 syncopal episodes lasting about a minute 2 days ago Reports holding her lisinopril and her Cardizem due to concerns with heart rates in the 50s Telemetry monitoring, check orthostatic BPs Hx hyperlipidemia: Continue statin Hx DM2: continue Jardiance Hx AF s/p pacemaker February 2024 continue metoprolol/Cardizem Notes For Next Care Provider The patient is a 74-year-old female with a past medical history of CHF, diastolicEF 55-60%, CAD, A-fib on Eliquis, PFT, trace MR, mild MR, CVAchronic expressive aphasia, PVD s/p surgical intervention, HTN, HLD, chronic respiratory failure secondary to COPD on home O24 L chronically, NAFLD, DM2, anemia who presents to the ED on 06/22/2024 with complaints of worsening shortness of breath over the past few days. Admitted for acute on chronic hypoxic respiratory failure, found to be in decompensated heart failure, diuresed extensively without significant improvement. Treated for UTI and CAP as well. Had GOC with patient and chose to focus on comfort at home. Signed on with hospice services at discharge. Medication Changes From Visit -comfort focused meds Admission HPI Per Admitting Provider The patient is a 74-year-old female with a past medical history of CHF, diastolicEF 55-60%, CAD, A-fib on Eliquis, PFT, trace MR, mild MR, CVAchronic expressive aphasia, PVD s/p surgical intervention, HTN, HLD, chronic respiratory failure secondary to COPD on home O24 L chronically, NAFLD, DM2, anemia who presents to the ED on 06/22/2024 with complaints of worsening shortness of breath over the past few days. Patient reports over the past few days having to increase her oxygen to 5 L because her oxygen level was in the 60s. She wears 4 L of oxygen chronically [id number]. Had 2 syncopal episodes 2 days ago each lasting about a minute. At this time, her heart rate was noted to be in the 50s. She has been holding her lisinopril and Cardizem for 3 days. 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 Follows with Wil. She denies any respiratory symptoms. She denies any chest pain. Denies any recent travel or sick contacts. Denies any wheezing and does not feel like this is a COPD exacerbation. Reports compliance with inhalers at home. On arrival to the ED, labs are remarkable for, hemoglobin 9.8, BUN 24, glucose 110, Trope 20.8, BNP 524, BioFire negative Chest x-ray showed: CHF with bilateral pleural effusions and associated lung base consolidation, left greater than right. EKG showed atrial fibrillation, V paced The patient was given a dose of IV Lasix in the ER and will be admitted for CHF exacerbation Discharge Exam Gen: A&O 3 NAD, chronically ill HEENT: NCAT, EOMI, not icteric. External ears normal. No rhinorrhea. Moist mucous membranes. Neck: Supple, full range of motion, no observable masses, No meningeal sign. Lungs: crackles in bilateral lower lungs, slightly improved from prior CV: RRR, no edema. Abdomen: Soft, nondistended, No rebound tenderness. MSK: No joint swelling, no redness. Skin: No rashes, petechiae, lesions. Normal color per patient. Neuro: Normal Gait, Grossly intact. Psych: Appropriate for situation. Updated Medication List Medication Instructions Recorded Confirmed Type apixaban 5 mg tablet (Eliquis) 5 mg PO BID 01/31/22 06/26/24 History atorvastatin 80 mg tablet 80 mg PO PM 01/31/22 06/26/24 History cholecalciferol (vitamin D3) 25 25 mcg PO DAILY 01/31/22 06/26/24 History mcg (1,000 unit) tablet (Vitamin D3) coenzyme Q10 100 mg capsule 100 mg PO DAILY 01/31/22 06/26/24 History (CoQ-10) empagliflozin 10 mg tablet 10 mg PO DAILY 01/31/22 06/26/24 History (Jardiance) esomeprazole magnesium 40 mg 40 mg PO BID 01/31/22 06/26/24 History capsule,delayed release ipratropium 20 mcg-albuterol 100 1 puff inhalation QID PRN 01/31/22 06/26/24 History mcg/actuation mist for inhalation Shortness Of Breath Or Wheezing (Combivent Respimat) multivitamin 1 tab PO DAILY 01/31/22 06/26/24 History nitroglycerin 0.4 mg sublingual 0.4 mg sublingual DIRECTED PRN 01/31/2206/26 History tablet (Nitrostat) Chest Pain peg 400-propylene glycol (PF) 0.4 1 drp OPB DIRECTED ##0 01/31/22 06/26/24 History %-0.3 % eye drops in a dropperette (Systane (PF)) vitamin B complex 1 tab PO DAILY 01/31/22 06/26/24 History amitriptyline 10 mg tablet 10 mg PO HS 11/26/23 06/26/24 History ipratropium bromide 21 mcg (0.03 2 spray intranasal QID PRN Nasal 11/26/23 0 06/26/24 History %) nasal spray Congestion isosorbide mononitrate 30 mg 30 mg PO QAM 11/26/23 06/26/24 History tablet,extended release 24 hr pregabalin 25 mg capsule 25 mg PO BID 11/26/23 06/26/24 History lisinopril 5 mg tablet 5 mg PO DAILY #30 tabs 02/06/24 06/26/24 Rx metoprolol succinate 25 mg 25 mg PO BID #60 tabs 02/06/24 06/26/24 Rx tablet,extended release 24 hr furosemide 20 mg tablet 20 mg PO QAM #30 tabs 06/30/24 Rx trazodone 50 mg tablet 50 mg PO HS PRN insomnia #30 tabs 06/30/24 Rx Hospital Stay Data Consultations 06/26/24 17:32 ED Decision to Admit Stat 06/26/24 19:14 Consult Cardiology Routine Diagnostic Imagining Performed 06/26/24 19:29 CT head/brain wo con Routine 06/26/24 22:27 CT Abd and Pelvis [CT abd pelvis IV con only] Stat 06/28/24 15:06 CT chest diagnostic w con Stat Pending Results Patient Have Any Pending Studies at Discharge: No Discharge Instructions Given to Patient (Per Discharging Provider) 1. Signing on with hospice at home. Total Time Total Time Spent Total Time Spent (In Minutes): I spent a total of 35 minutes in direct patient care, including [id number] time with the patient and/or family, reviewing medical records, ordering and reviewing diagnostic tests, and coordinating care with other healthcare providers. This time includes: history taking, physical examination, medical decision making, counseling, ECG interpretation, imaging interpretation, lab interpretation, orders, and education, excluding time spent in the performance of separately billed services.
--- NOTE | 2024-06-30 23:17 | Electrocardiogram Report ---
Test Reason : Blood Pressure : */* mmHG Vent. Rate : 65 BPM Atrial Rate : 69 BPM P-R Int : * ms QRS Dur : 124 ms QT Int : 422 ms P-R-T Axes : * 51 -66 degrees QTcB Int : 438 ms Ventricular-paced rhythm Right bundle branch block Abnormal ECG When compared with ECG of 27-Jun-2024 04:53, No significant change Confirmed by Robin Love ([id number]) on 06/30/2024 11:16:42 PM Referred By: REFERRED SELF Confirmed By: Robin Love
== END 2024-06-30 14:24 | disposition hospice, home (50) | DRG 291 ==
LOC: ED 13:24 → SUATTDRO 17:49 → 2E 17:49